=== PATIENT | male | born 1940 | race Caucasian/White ===

== ENCOUNTER → 2016-08-11 | Outpatient (CLI) | payer OTHER ==
[~2016-08-11] MED LIST: ASCO10003 PO; ASPEC325 PO; ATEN100T8 PO; CHOL20009 PO; FLUV50TA3 PO; GARL400T4 PO; IPRA0.037; LECI1CAP3 PO; LISI40TA PO; LSX20 PO; MCR25 PO; MULT-506 PO; OMEG10007 PO; PHYT500C PO; PRLSRUNK PO; SILD50TA PO; SULF800T23 PO; [UNRECOGNIZED DRUG - CODE] PO
[2016-08-11 11:11] LABS: BASO % 0.3 %; BASO ABS # 0.02 K/uL (0-0.2); COMPLETE YES; EOS % 2.9 %; HEMATOCRIT 38.9 % (42-52); IG% 0.1 %; LYMPH % 42.7 %; LYMPH ABS # 3.28 K/uL (1.2-3.4); MEAN CELL VOLUME 88.4 fL (80-100); MEAN CORPUSCULAR HEMOGLOBIN 31.4 pg (25-34); MEAN CORPUSCULAR HGB CONC 35.5 g/dl (32-36); MEAN PLATELET VOLUME 10.7 fL (7.4-10.4); MONO % 8.6 %; NEUT % 45.4 %; PLATELET COUNT 133 K/uL (130-400); WHITE BLOOD COUNT 7.69 K/uL (4.8-10.8)
[2016-08-11 11:35] LABS: ALT/SGPT 36 U/L (12-78); AST/SGOT 21 U/L (15-37); BLOOD UREA NITROGEN 39 mg/dl (7-18); CALCIUM 9.1 mg/dl (8.5-10.1); CARBON DIOXIDE 28 mmol/L (21-32); CHLORIDE 106 mmol/L (98-107); GLUCOSE 136 mg/dl (70-99); POTASSIUM 4.9 mmol/L (3.5-5.1); SODIUM 143 mmol/L (136-145); URIC ACID 3.7 mg/dl (2.6-7.2)
[2016-08-11 11:47] LABS: ALB/GLOB RATIO 0.9 (0.9-2); ALKALINE PHOSPHATASE 66 U/L (45-117); CHOLESTEROL 165 mg/dl (0-200); CHOLESTEROL/HDL RATIO 3.8; HDL CHOLESTEROL 43 mg/dl; LDL CHOLESTEROL CALCULATED 89 mg/dl; TRIGLYCERIDES 165 mg/dl (0-150); VERY LOW DENSITY LIPOPROT CALC 33 mg/dl
[2016-08-11 13:11] LABS: ESTIMATED AVERAGE GLUCOSE 174 mg/dl; HA1C FLAG Normal (Normal)
[2016-08-11 14:45] LABS: URINE APPEARANCE CLEAR (CLEAR); URINE BILIRUBIN NEG (NEG); URINE COLOR YELLOW; URINE NITRITE NEG (NEG); URINE SPECIFIC GRAVITY 1.013 (1.000-1.030); UROBILINOGEN NEG (NEG)
[2016-08-11 14:54] LABS: MANUAL MICROSCOPIC REQUIRED? NO; REVIEW REQ? NO
[2016-08-11 15:19] LABS: URINE PROTIEN/CREAT RATIO 0.1 (0-0.2); URINE TOTAL PROTEIN 13.2 mg/dl (0-11.9)
== END | disposition home or self-care (01) ==
LOC: C.LAB1850 09:49
PROVIDERS: ATTEND Internal Medicine Pulmonary Disease
DX: I48.91 Unspecified atrial fibrillation (principal); E11.22 Type 2 diabetes mellitus with diabetic chronic kidney disease; E78.5 Hyperlipidemia, unspecified; M1A.9XX0 Chronic gout, unspecified, without tophus (tophi); I12.9 Hypertensive chronic kidney disease with stage 1 through stage 4 chronic kidney disease, or unspecified chronic kidney disease; N18.3 Chronic kidney disease, stage 3 (moderate); N25.81 Secondary hyperparathyroidism of renal origin; E55.9 Vitamin D deficiency, unspecified; R60.9 Edema, unspecified

== ENCOUNTER → 2016-08-29 | Outpatient (CLI) | payer OTHER ==
--- NOTE | 2016-08-29 15:11 | DIAGNOSTIC IMAGING REPORT ---
RIGHT HAND 3 VIEWS CLINICAL HISTORY: Gout. Right hand pain. FINDINGS: 3 views of the right hand are obtained. No prior studies are available for comparison at the time of dictation. Skeletal structures are osteopenic. No fracture is seen. Mild osteoarthritic change is present at the first carpometacarpal and metacarpophalangeal joints. Only minimal arthritic changes seen involving the interphalangeal joints. Degenerative narrowing is also identified at the radiocarpal joint. A small ossific density distal to the styloid may represent a chronic avulsion injury. Soft tissue edema is present in the fingers, greatest in the second and third finger. No erosive change is seen. Subtle soft tissue calcifications are suggested around the second proximal interphalangeal joint. IMPRESSION: 1. No acute bony abnormality is seen in the right hand. 2. Osteopenia and mild osteoarthritic change as above. 3. No erosive change is seen. 4. Soft tissue edema is seen throughout the fingers, greatest in the second and third digits. Subtle soft tissue calcifications are suggested in the second finger around the proximal interphalangeal joint. This is nonspecific but may correspond to gouty arthropathy as clinically suspected. Electronically signed by: Tio Cole M.D. 08/29/2016 3:10 PM Dictated Date/Time: 08/29/2016 3:06 PM
== END | disposition home or self-care (01) ==
LOC: C.RAD1850 14:52
PROVIDERS: ATTEND Internal Medicine Rheumatology
DX: M10.9 Gout, unspecified (principal); R73.09 Other abnormal glucose; Z79.52 Long term (current) use of systemic steroids

== ENCOUNTER → 2017-02-17 | Outpatient (CLI) | payer OTHER ==
[2017-02-17 09:38] LABS: BASO % 0.2 %; BASO ABS # 0.02 K/uL (0-0.2); COMPLETE YES; EOS % 2.8 %; HEMATOCRIT 39.6 % (42-52); IG% 0.4 %; LYMPH ABS # 3.89 K/uL (1.2-3.4); MEAN CORPUSCULAR HEMOGLOBIN 31.5 pg (25-34); MEAN CORPUSCULAR HGB CONC 34.6 g/dl (32-36); NEUT % 47.6 %; PLATELET COUNT 144 K/uL (130-400); RED BLOOD COUNT 4.35 M/uL (4.7-6.1); WHITE BLOOD COUNT 9.27 K/uL (4.8-10.8)
[2017-02-17 10:07] LABS: ESTIMATED AVERAGE GLUCOSE 174 mg/dl; HA1C FLAG Normal (Normal)
[2017-02-17 10:22] LABS: ALB/GLOB RATIO 0.8 (0.9-2); ALT/SGPT 34 U/L (12-78); AST/SGOT 18 U/L (15-37); BLOOD UREA NITROGEN 44 mg/dl (7-18); BUN/CREATININE RATIO 24.3 (10-20); CALCIUM 9.3 mg/dl (8.5-10.1); CARBON DIOXIDE 29 mmol/L (21-32); CHLORIDE 104 mmol/L (98-107); CHOLESTEROL 169 mg/dl (0-200); GLUCOSE 113 mg/dl (70-99); POTASSIUM 4.7 mmol/L (3.5-5.1); SODIUM 140 mmol/L (136-145); TRIGLYCERIDES 154 mg/dl (0-150); URIC ACID 3.7 mg/dl (2.6-7.2); VERY LOW DENSITY LIPOPROT CALC 31 mg/dl
[2017-02-17 10:23] LABS: ALKALINE PHOSPHATASE 63 U/L (45-117); CHOLESTEROL/HDL RATIO 3.8; HDL CHOLESTEROL 44 mg/dl; LDL CHOLESTEROL CALCULATED 94 mg/dl
[2017-02-17 12:28] LABS: URINE APPEARANCE CLEAR (CLEAR); URINE BILIRUBIN NEG (NEG); URINE COLOR YELLOW; URINE EPITHELIAL CELL AUTO 0-5 /lpf (0-5); URINE NITRITE NEG (NEG); URINE PH 6.5 (4.5-7.5); URINE SPECIFIC GRAVITY 1.014 (1.000-1.030); UROBILINOGEN NEG (NEG)
[2017-02-17 12:36] LABS: MANUAL MICROSCOPIC REQUIRED? NO; REVIEW REQ? NO
[2017-02-17 12:50] LABS: URINE PROTIEN/CREAT RATIO 0.1 (0-0.2)
--- NOTE | 2017-02-25 11:37 | CODING QUERY MEDICAL NECESSITY ---
CQSUPPORTING DIAGNOSIS NEEDED A supporting diagnosis is required for the test/procedure performed on this patient in order for us to be reimbursed by the patient's insurance. Please provide a supporting diagnosis for the following test/procedure listed below next to the test name along with your signature. *If there is no additional diagnosis for this patient that would support the following test/procedure please document that below next to the test/procedure. Test(s)/Procedure(s) that require a supporting diagnosis: DOS 02/17/17 GLYCATED HEMOGLOBIN TEST Provider Signature: Date: Thank you Barbara Strange Health Information Management Once completed, please kindly fax back to [phone] For questions please call [phone]
== END | disposition home or self-care (01) ==
LOC: C.LAB1850 08:01
PROVIDERS: ATTEND Internal Medicine Pulmonary Disease
DX: I12.9 Hypertensive chronic kidney disease with stage 1 through stage 4 chronic kidney disease, or unspecified chronic kidney disease (principal); N18.3 Chronic kidney disease, stage 3 (moderate); N25.81 Secondary hyperparathyroidism of renal origin; R60.9 Edema, unspecified; E55.9 Vitamin D deficiency, unspecified; M1A.9XX0 Chronic gout, unspecified, without tophus (tophi); E11.9 Type 2 diabetes mellitus without complications

== ENCOUNTER → 2017-04-30 | Outpatient (CLI) | payer OTHER ==
--- NOTE | 2017-04-30 13:47 | DIAGNOSTIC IMAGING REPORT ---
PELVIS BILATERAL HIP 2 CLINICAL HISTORY: BILATERAL HIP PAIN COMPARISON: None. DISCUSSION: Evidence for bilateral total hip arthroplasties. Longstem femoral prosthetic on the right. Good contact between metallic components and underlying bone. No evidence for acetabular protrusion. Several circumferential wires surrounding the proximal left femur. There is no evidence for soft tissue swelling. IMPRESSION: No acute process status post total bilateral hip arthroplasties. The above report was generated using voice recognition software. It may contain grammatical, syntax or spelling errors. Electronically signed by: Milton Reid M.D. 04/30/2017 1:45 PM Dictated Date/Time: 04/30/2017 1:44 PM
== END | disposition home or self-care (01) ==
LOC: C.RDSM 13:00
PROVIDERS: ATTEND Physician Assistant
DX: M25.551 Pain in right hip (principal); M25.552 Pain in left hip

== ENCOUNTER → 2017-09-01 | Outpatient (CLI) | payer OTHER ==
[2017-09-01 09:35] LABS: HEMATOCRIT 38.4 % (42-52); HEMOGLOBIN 13.6 g/dL (14.0-18.0); MEAN CELL VOLUME 89.1 fL (80-100); MEAN CORPUSCULAR HEMOGLOBIN 31.6 pg (25-34); MEAN CORPUSCULAR HGB CONC 35.4 g/dl (32-36); MEAN PLATELET VOLUME 10.6 fL (7.4-10.4); PLATELET COUNT 157 K/uL (130-400); RED CELL DISTRIBUTION WIDTH CV 13.2 % (11.5-14.5); RED CELL DISTRIBUTION WIDTH SD 42.8 fL (36.4-46.3); WHITE BLOOD COUNT 8.59 K/uL (4.8-10.8)
[2017-09-01 09:52] LABS: HEMOGLOBIN A1C 8.1 % (4.5-5.6)
[2017-09-01 10:50] LABS: ALBUMIN 3.4 gm/dl (3.4-5.0); ALT/SGPT 39 U/L (12-78); AST/SGOT 19 U/L (15-37); BLOOD UREA NITROGEN 39 mg/dl (7-18); CALCIUM 9.2 mg/dl (8.5-10.1); CARBON DIOXIDE 24 mmol/L (21-32); GLUCOSE 165 mg/dl (70-99); POTASSIUM 4.2 mmol/L (3.5-5.1); SODIUM 139 mmol/L (136-145)
[2017-09-01 10:53] LABS: ALKALINE PHOSPHATASE 69 U/L (45-117); CHOLESTEROL 163 mg/dl (0-200); LDL CHOLESTEROL CALCULATED 76 mg/dl; PHOSPHORUS 3.1 mg/dl (2.5-4.9)
== END | disposition home or self-care (01) ==
LOC: C.LAB1850 07:54
PROVIDERS: ATTEND Internal Medicine Nephrology
DX: M1A.9XX0 Chronic gout, unspecified, without tophus (tophi) (principal); I12.9 Hypertensive chronic kidney disease with stage 1 through stage 4 chronic kidney disease, or unspecified chronic kidney disease; N18.3 Chronic kidney disease, stage 3 (moderate); N25.81 Secondary hyperparathyroidism of renal origin; E55.9 Vitamin D deficiency, unspecified

== ENCOUNTER → 2017-11-09 | Outpatient (CLI) | payer OTHER ==
--- NOTE | 2017-11-09 12:10 | DIAGNOSTIC IMAGING REPORT ---
RIGHT SHOULDER 3 VIEWS CLINICAL HISTORY: Right shoulder pain. FINDINGS: 3 views of the right shoulder are obtained. No prior studies are available for comparison at the time of dictation. The skeletal structures are osteopenic. No fracture or dislocation is seen. Productive degenerative change is noted at the acromioclavicular joint. The glenohumeral articulation is preserved. A small calcified joint body is suggested just above the glenoid. The overlying soft tissues are within normal limits. Imaged right lung parenchyma appears clear. IMPRESSION: 1. Osteopenia and mild degenerative change as above. No acute bony abnormality is identified. 2. Suspect a small calcified joint body. Electronically signed by: Tio Cole M.D. 11/09/2017 12:09 PM Dictated Date/Time: 11/09/2017 12:08 PM
--- NOTE | 2017-11-09 12:40 | DIAGNOSTIC IMAGING REPORT ---
CERVICAL SPINE 5 VIEWS CLINICAL HISTORY: Cervicalgia. Right shoulder pain. FINDINGS: AP, lateral, bilateral oblique, and odontoid views of the cervical spine are obtained. No prior studies are available for comparison at the time of dictation. The skeletal structures are osteopenic. There is no radiographic evidence of fracture or subluxation involving the cervical spine. The atlantodental articulation appears maintained. The odontoid process and lateral masses are intact as seen on the open-mouth view. The spinolaminar line is preserved. Vertebral body height and alignment are maintained. Small anterior osteophytes are seen throughout. There is multilevel facet arthropathy. Left-sided neural foraminal stenosis is suggested on the oblique views from C3-C4 through C5-C6. Mild right-sided neural foraminal stenosis is suggested from C3-C4 through C5-C6. There is moderate disc space narrowing seen at C5-C6 and C6-C7. A tiny posterior disc osteophyte complex at C6-C7 may contribute to mild acquired compromise of the central canal. The prevertebral soft tissues are normal in appearance. The visualized upper lobe lung parenchyma appears clear. Atherosclerotic calcification is noted in the carotid bulbs. IMPRESSION: 1. No acute bony abnormality is seen involving the cervical spine. 2. Osteopenia and multilevel spondylosis as detailed above. Dictated: 11/09/2017 12:09 PM Transcribed: 11/09/2017 12:40 PM MAN_[email or web address] Electronically signed by: Tio Cole M.D. 11/09/2017 12:52 PM Dictated Date/Time: 11/09/2017 12:09 PM
== END | disposition home or self-care (01) ==
LOC: C.RDSM 11:45
PROVIDERS: ATTEND Physician Assistant
DX: M54.12 Radiculopathy, cervical region (principal); M25.511 Pain in right shoulder; M85.89 Other specified disorders of bone density and structure, multiple sites

== ENCOUNTER 2019-03-03 08:17 | Inpatient (IN) ==
[2019-03-03] MEDS ORDERED: SODIUM CHLORIDE 0.9% 500 ML IV SCH (08:45)
--- NOTE | 2019-03-03 09:07 | XRay Report ---
XR chest 1V portable CLINICAL HISTORY: weakness dyspnea COMPARISON STUDY: 10/14/2018 FINDINGS: Mild increase in cardiac size. Prominent pulmonary vasculature. Diaphragms are smooth. The pulmonary apices are clear. IMPRESSION: Findings of developing congestive failure versus pulmonary edema. The above report was generated using voice recognition software. It may contain grammatical, syntax or spelling errors. Electronically signed by: Milton Reid M.D. 03/03/2019 9:05 AM
[2019-03-03 09:15] LABS: Basophils # (auto) 0.02 K/uL (0-0.2); Basophils % (auto) 0.2 %; Eosinophils # (auto) 0.01 K/uL (0-0.5); Eosinophils % (auto) 0.1 %; Hematocrit (blood only) 31.1 % (42-52); Hemoglobin 10.5 g/dL (14.0-18.0); Immature Granulocytes # (auto) 0.02 K/uL (0.00-0.02); Immature Granulocytes % (auto) 0.2 %; Lymphocytes # (auto) 2.59 K/uL (1.2-3.4); Lymphocytes % (auto) 26.4 %; Mean Corpuscular Hemoglobin 31.3 pg (25-34); Mean Corpuscular Hgb Conc 33.8 g/dL (32-36); Mean Corpuscular Volume 92.8 fL (80-100); Mean Platelet Volume 11.3 fL (7.4-10.4); Monocytes # (auto) 0.81 K/uL (0.11-0.59); Monocytes % (auto) 8.3 %; Neutrophils # (auto) 6.35 K/uL (1.4-6.5); Neutrophils % (auto) 64.8 %; Platelet Count 114 K/uL (130-400); RDW Coefficient of Variation 13.3 % (11.5-14.5); RDW Standard Deviation 44.9 fL (36.4-46.3); Red Blood Count 3.35 M/uL (4.7-6.1)
[2019-03-03 09:33] LABS: Albumin Level 3.3 gm/dl (3.4-5.0); BUN Creatinine Ratio 23.9 (10-20); Calcium 8.9 mg/dl (8.5-10.1); Creatinine Clr Calc Pharmacy 29.5 ml/min; Est GFR (African American) 25.9; Est GFR (Non-African American) 22.4; INR 1.4 (0.9-1.1); Magnesium 2.1 mg/dl (1.8-2.4); Partial Thromboplastin Ratio 1.3; Partial Thromboplastin Time 34.8 Seconds (21.0-31.0); Potassium 4.5 mmol/L (3.5-5.1); Prothrombin Time 13.9 Seconds (9.0-12.0)
--- NOTE | 2019-03-03 09:37 | CT Scan Report ---
CT head/brain wo con CT DOSE: 788.63 mGycm HISTORY: Mental status change weakness, falling TECHNIQUE: Multiaxial CT images of the head were performed without the use of intravenous contrast. A dose lowering technique was utilized adhering to the principles of ALARA. Comparison: 10/08/2018 Findings: Opacified left sphenoid chronic partial opacification right mastoid air cells. Sinus. The c alvarium and skull base are intact. The ventricles and sulci are within normal limits. There is no ma ss, hematoma, midline shift, or acute infarct. Age-related atrophy and chronic small vessel change is noted. Impression: 1. No acute intracranial abnormality. 2. Age-related atrophy and chronic small vessel change. 3. Chronic opacification left sphenoid sinus with chronic mucosal thickening of the components of the right mastoid air cells. The above report was generated using voice recognition software. It may contain grammatical, syntax or spelling errors. Electronically signed by: Milton Reid M.D. 03/03/2019 9:35 AM
[2019-03-03 09:59] LABS: Albumin Globulin Ratio 0.9 (0.9-2); Bilirubin,Total 2.1 mg/dl (0.2-1); Globulin 3.7 gm/dl (2.5-4.0); Thyroid Stimulating Hormone 1.15 uIu/ml (0.300-4.500); Troponin I 0.104 ng/ml (0-0.045)
--- NOTE | 2019-03-03 11:50 | History & Physical Report ---
Date of Service March 03, 2019 Assessment & Plan (1) CHF (congestive heart failure): New onset, possibly related to nifedipine use ECHO pending Nifedipine held Lasix 20mg AM at baseline for HTN dx, did not take today Lasix 40mg IV x1 and monitor BNP elevated (2) Elevated troponin: Demand ischemia vs related to CKD vs ACS Trop 0.104 on admission, serials pending Tele monitor (3) Weakness: Likely related to above in the setting of chronic weakness Had been improving with outpt PT and plans to return t/c PT/OT if continues (4) Hypertension: Recent d/c of lisinopril due to elevated K Nifedipine noted to cause LE swelling and possibly CHF exacerbation, last dose was 03/01 Had been changed to norvasc but not started yet, this could also cause LE swelling--will hold for now and monitor on home metoprolol dosing (5) Stage 3 chronic kidney disease: Baseline cr is 2.3-2.4, was 2.6 on admission Monitor with increased lasix (6) Atrial fibrillation: continue home meds Eliquis (7) Chronic sinusitis: Noted on CT and pt with sx Will start on augmentin x3 weeks Start probiotics (8) Type 2 diabetes mellitus: continue home meds BS 93 on admission A1c pending (9) Dyslipidemia: continue home meds (10) Edema: Likely related to nifedipine Could also be an issue with norvasc (11) Gout: continue home meds (12) Anxiety: continue home meds (13) DVT prophylaxis: Eliquis at baseline History of Present Illness Primary Care Provider: Jovany Stephenson MD 78 y/o M c/o weakness. Pt states that he has been going to PT at [facility] for issues with b/l hip weakness and had been doing quite well. He had progressed from a walker to using a cane only. He left PT on Thursday and felt that he had a good session, however that night he became notable weak and was having difficulty walking and standing. Thursday morning he tried to get out of bed and more slid to the floor. He was SOB when he woke up and had some mild SOB with ambulation. This AM he had slid out of bed and walked to the bathroom with some difficulty. He was brushing his teeth when he felt that he could no longer stand. He tried to hold himself up using the sink, but was too weak to do this as well. He was able to move to put his back against the wall and slide to the floor. He did not hit his head. Pt states that he had been on lisinopril for his BP, however there was an elevation in his K on routine labs a few weeks ago so this was changed to nifedipine. Since that time, pt has noted increased LE swelling, which was not an issue prior. He called Dr. Carney and this was changed to norvasc yesterday. He has not picked up this prescription yet. Last nifedipine was Thursday. Pt denies hx of LE swelling prior to this. He does take lasix, but has been on this for about 10 yrs. It was prescribed for BP control. Pt denies fever, chest pain, abd pain, n/v/c/d, LE pain. Pt states he has a chronic "stuffy nose" that he uses Atrovent spray for. He also uses a sinus rinse. This helps, but if he misses doses of the nasal spray, his sx return. Allergies Allergy/AdvReac Type Severity Reaction Status Date / Time latex Allergy Unknown LOCAL SKIN Verified 03/03/19 08:42 IRRITATION lisinopril Allergy Unknown hyperkalemi Verified 03/03/19 08:42 a sulfamethoxazole AdvReac increases Verified 03/03/19 08:42 [From Bactrim] potassium trimethoprim [From Bactrim] AdvReac increases Verified 03/03/19 08:42 potassium Home Medications Home Medications Medication Instructions Recorded Confirmed Type Eliquis 5 mg PO BID 10/08/18 03/03/19 History acetaminophen [Tylenol Arthritis 1,300 mg PO QAM 10/08/18 03/03/19 History Pain] ascorbic acid (vitamin C) 1,000 mg PO QAM 10/08/18 03/03/19 History gabapentin 100 mg PO HS 10/08/18 03/03/19 History garlic 1,000 mg PO QAM 10/08/18 03/03/19 History glipizide 5 mg PO QAM 10/08/18 03/03/19 History ipratropium bromide 2 spray INTRANASAL BID 10/08/18 03/03/19 History metoprolol tartrate 25 mg PO BID 10/08/18 03/03/19 History multivitamin 1 tab PO QAM 10/08/18 03/03/19 History pravastatin 10 mg PO QAM 10/08/18 03/03/19 History ranitidine HCl 300 mg PO QAM 10/08/18 03/03/19 History febuxostat [Uloric] 40 mg PO QAM 12/14/18 03/03/19 History cholecalciferol (vitamin D3) 1,000 1,000 units PO QAM 01/17/19 03/03/19 History unit capsule [id number] oil 120 2 cap PO QAM cap 01/17/19 03/03/19 History mg-180 mg-60 mg-1,200 mg capsule, DR hernandez stanol amarjit 450 mg tablet 900 mg PO QAM tab 01/17/19 03/03/19 History acetaminophen [Tylenol Arthritis 650 mg PO HS 03/03/19 03/03/19 History Pain] amlodipine 2.5 mg PO QAM 03/03/19 03/03/19 History fluvoxamine 100 mg PO HS 03/03/19 03/03/19 History furosemide 20 mg PO QAM 03/03/19 03/03/19 History Past Med/Surg History Medical History Gout (Chronic) Hypertension (Chronic) Stage 3 chronic kidney disease (Chronic) Afib Arthritis Cataracts, both eyes RIGHT EYE BEING DONE FIRST Diabetes GERD (gastroesophageal reflux disease) High cholesterol History of stress test 2009 [place] D/T PASSED OUT WENT TO [facility]. 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 Hx of fall 09/2018 - SEEN IN ED - HAD CT OF HEAD - NEGATIVE Peripheral artery disease LEFT LEG Surgical History History of parathyroidectomy (Chronic) PARTIAL History of back surgery L3-L4 History of left hip replacement History of right hip replacement X2 Hx of hernia repair Family History Father Myocardial infarction Mother Gout CHF (congestive heart failure) Social History Preferred Language: [place] Communication Ability: Effective Beliefs That Will Affect Care: None Current Living Situation: Spouse Feels Safe at Home: Yes Smoking Status: Former smoker Smoking End Date: 1984 ; Second Hand Exposure: No ; Hx Alcohol Use: No Hx Substance Use: No Review of Systems Review of Systems: Pertinent positives and negatives reviewed in HPI--all others negative Physical Exam Constitutional: WD/WN, vitals as above Eyes: normal visual mckeon by confrontation and + anicteric sclerae ENMT: Nose: + abnormal transillumination of sinuses and + facial tenderness Neck: normal visual inspection and trachea midline Respiratory: normal respiratory effort; no respiratory distress Auscultation: + crackles Cardiovascular: Rate/Rhythm: regular rate; + abnormal rhythm Gastrointestinal (Abdomen): Inspection/Auscultation: abdomen not distended Percussion/Palpation: abdomen soft; abdomen nontender Musculoskeletal: Head/Neck/Chest: normocephalic and head atraumatic b/l 1+ LE edema, peripheral pulses intact Skin: no rashes, warm and dry Neurologic: awake; not confused Speech / Cognition: normal speech Psychiatric: A+Ox3, euthymic affect Results & Data Vital Signs (Past 12 Hours) Vital Signs Temp Pulse Pulse Resp BP BP Pulse Ox 03/03/19 09:44 65 20 154/58 H 96 03/03/19 08:52 62 96 03/03/19 08:24 37.6 C H 63 18 190/86 H 97 Diagnostic Findings CXR: CHF CT head: neg for acute but with L sided chronic sinusitis ECG Rhythm: atrial fibrillation Findings: + RBBB Code Status & VTE Plan Code Status Full code VTE Prophylaxis Plan VTE Prophylaxis will be ordered: Yes PG Care Time/CCT Total # of Minutes Spent Total Time Spent with Patient: Total time spent is greater than 50% in coordination of care (as documented) at patient's floor/unit and/or counseling patient: (1) CHF (congestive heart failure) Heart failure chronicity: unspecified Heart failure type: unspecified Qualified Code(s): I50.9 - Heart failure, unspecified
[2019-03-03] MEDS ORDERED: METOPROLOL TARTRATE 25 MG TAB PO STA (12:08)
[2019-03-03] MEDS ORDERED: FUROSEMIDE 20 MG in SYRINGE 0 ML IV ONE (12:08)
[2019-03-03] MEDS ORDERED: FUROSEMIDE 40 MG/4 ML VIAL IV ONE (12:20)
--- NOTE | 2019-03-03 13:08 | Emergency Department Note ---
Entered by Akil Saab acting as a scribe for History of Present Illness General Chief complaint: Fall Time Seen by Provider: 03/03/19 08:35 Source: patient History of Present Illness Provider complaint: Fall Onset (ago): day(s) 1 Location: lower extremity, left and right Severity: similar to prior episodes Pain Consistency: + constant Maximum Pain Intensity: 0 Relieved By: + none Exacerbated By: + none Associated symptoms: no chest pain, no headaches and no shortness of breath The patient is a 78 year old male who presents to the Emergency Room with complaints of intermittent lower extremity weakness that has been an ongoing problem for months but became acutely worse yesterday. The patient states that due to this weakness he has had frequent falls. The patient reports that this morning he was in the bathroom when he started to feel himself sway to the left. He notes he could not stop so he leaned again the wall and slid to the ground. The patient adds that it was a gentle fall and he did not injure himself or strike his head. The patient states that he has followed up with Dr. Curiel - Cardiology for these weakness and balance problems and he was diagnosed with peripheral artery disease. The patient sometimes uses a walker and is currently attending physical therapy to build strength back. He recalls that 2 days ago he had a productive day at physical therapy, however yesterday he felt weaker than her normally does. The patient is on Eliquis for his history of Afib and is supposed to have an appointment with Dr. Curiel today. The patient also has a history of bilateral hip replacements. Home Medications Home Medications Medication Instructions Recorded Confirmed Type Eliquis 5 mg PO BID 10/08/18 03/03/19 History acetaminophen [Tylenol Arthritis 1,300 mg PO QAM 10/08/18 03/03/19 History Pain] ascorbic acid (vitamin C) 1,000 mg PO QAM 10/08/18 03/03/19 History gabapentin 100 mg PO HS 10/08/18 03/03/19 History garlic 1,000 mg PO QAM 10/08/18 03/03/19 History glipizide 5 mg PO QAM 10/08/18 03/03/19 History ipratropium bromide 2 spray INTRANASAL BID 10/08/18 03/03/19 History metoprolol tartrate 25 mg PO BID 10/08/18 03/03/19 History multivitamin 1 tab PO QAM 10/08/18 03/03/19 History pravastatin 10 mg PO QAM 10/08/18 03/03/19 History ranitidine HCl 300 mg PO QAM 10/08/18 03/03/19 History febuxostat [Uloric] 40 mg PO QAM 12/14/18 03/03/19 History cholecalciferol (vitamin D3) 1,000 1,000 units PO QAM 01/17/19 03/03/19 History unit capsule [id number] oil 120 2 cap PO QAM cap 01/17/19 03/03/19 History mg-180 mg-60 mg-1,200 mg capsule, plant stanol amarjit 450 mg tablet 900 mg PO QAM tab 01/17/19 03/03/19 History acetaminophen [Tylenol Arthritis 650 mg PO HS 03/03/19 03/03/19 History Pain] amlodipine 2.5 mg PO QAM 03/03/19 03/03/19 History fluvoxamine 100 mg PO HS 03/03/19 03/03/19 History furosemide 20 mg PO QAM 03/03/19 03/03/19 History Allergies Allergy/AdvReac Type Severity Reaction Status Date / Time latex Allergy Unknown LOCAL SKIN Verified 03/03/19 08:42 IRRITATION lisinopril Allergy Unknown hyperkalemi Verified 03/03/19 08:42 a sulfamethoxazole AdvReac increases Verified 03/03/19 08:42 [From Bactrim] potassium trimethoprim [From Bactrim] AdvReac increases Verified 03/03/19 08:42 potassium Past Med/Surg History Medical History Gout (Chronic) Hypertension (Chronic) Stage 3 chronic kidney disease (Chronic) Afib Arthritis Cataracts, both eyes RIGHT EYE BEING DONE FIRST Diabetes GERD (gastroesophageal reflux disease) High cholesterol History of stress test 2009 [place] D/T PASSED OUT WENT TO [facility]. 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 HAND HAS RECORD OF THIS Hx of fall 09/2018 - SEEN IN ED - HAD CT OF HEAD - NEGATIVE Peripheral artery disease LEFT LEG Surgical History History of parathyroidectomy (Chronic) PARTIAL History of back surgery L3-L4 History of left hip replacement History of right hip replacement X2 Hx of hernia repair Family History Father Myocardial infarction Mother Gout CHF (congestive heart failure) Social History Preferred Language: [place] Communication Ability: Effective Beliefs That Will Affect Care: None Current Living Situation: Spouse Feels Safe at Home: Yes Smoking Status: Former smoker Second Hand Exposure: No ; Hx Alcohol Use: No Hx Substance Use: No Review of Systems See HPI for pertinent positives & negatives. and A total of 10 systems reviewed and were otherwise negative Physical Exam Vital Signs Vital Signs - 24 hr 03/03/19 08:24 03/03/19 08:52 03/03/19 09:12 Temperature 37.6 C H Temperature Source Oral Sepsis Recent Fever Within 48 Hours No Sepsis Action Taken by Nursing No Action Required Pulse Rate - Lying 54 L Pulse Rate - Sitting 61 Pulse Rate - Standing 64 Pulse Rate 63 62 Pulse Rate [Left] Respiratory Rate 18 Respiratory Effort / Characteristics Non-Labored Spontaneous Respiratory Depth Normal Blood Pressure - Lying 172/71 H Blood Pressure - Sitting 174/75 H Blood Pressure- Standing 154/58 H Blood Pressure 190/86 H Blood Pressure [Left Arm] Blood Pressure Mean 120 Blood Pressure Mean [Left Arm] Blood Pressure Position Lying Blood Pressure Position [Left Arm] Pulse Oximetry 97 96 Oxygen Delivery Method Room Air Room Air 03/03/19 09:44 Temperature Temperature Source Sepsis Recent Fever Within 48 Hours Sepsis Action Taken by Nursing Pulse Rate - Lying Pulse Rate - Sitting Pulse Rate - Standing Pulse Rate Pulse Rate [Left] 65 Respiratory Rate 20 Respiratory Effort / Characteristics Non-Labored Spontaneous Respiratory Depth Blood Pressure - Lying Blood Pressure - Sitting Blood Pressure- Standing Blood Pressure Blood Pressure [Left Arm] 154/58 H Blood Pressure Mean Blood Pressure Mean [Left Arm] 90 Blood Pressure Position Blood Pressure Position [Left Arm] Lying Pulse Oximetry 96 Oxygen Delivery Method Room Air GENERAL: Patient is in no acute distress. HEENT: No acute trauma, normocephalic atraumatic, mucous membranes moist, no nasal congestion, no scleral icterus. NECK: No stridor, no adenopathy, no meningismus, trachea is midline. LUNGS: Clear to auscultation bilaterally, no wheeze, no rhonchi, breath sounds equal. HEART: 1/6 systolic murmur. Regular rate and rhythm. ABDOMEN: Soft, nontender, bowel sounds positive, no hernias, no peritonitis. RECTAL: Brown stool, heme negative. EXTREMITIES: No cyanosis or edema, full range of motion of all the joints without pain or difficulty, no signs for acute trauma. NEUROLOGIC: Oriented x 3, no acute motor or sensory deficits, no focal weakness. No cerebellar deficits or pronator drift. SKIN: No rash, no jaundice, no diaphoresis. Course 0834: Past medical records reviewed. The patient was evaluated in room B07, and a complete history and physical examination were performed. 0953: I reevaluated the patient and updated him on results. I also performed a rectal exam. 1004: I updated the patient on the treatment plan. He fully understands and is agreeable with the plan. 1016: I spoke to Luz Marialew Myles [facility] PAC under Dr. Garcia [facility] Hospitalist about the patient's case. They are going to accept the patient for further evaluation. Consultations Consultation #1: I spoke [facility]z [facility] under Dr. Garcia [facility] Hospitalist about the patient's case. They are going to accept the patient for further evaluation. Time: 10:16 Administered Medications Apixaban (Eliquis) 5 mg PO BID CHAPIN Stop: 04/02/19 13:18 Last Admin: 03/03/19 14:30 Dose: 5 mg Documented by: [id number] Lactobacillus Acidophilus (Floranex) 4 tab PO QIDM CHAPIN Stop: 04/02/19 13:18 Last Admin: 03/03/19 14:30 Dose: 4 tab Documented by: [id number] Discontinued Medications Furosemide (Lasix) Confirm Administered Dose 40 mg IV .STK-MED ONE Stop: 03/03/19 12:21 Last Admin: 03/03/19 12:23 Dose: 20 mg Documented by: [id number] Sodium Chloride (Nss) 500 mls @ 999 mls/hr IV .Q31M CHAPIN Stop: 03/03/19 09:15 Last Infusion: 03/03/19 09:50 Dose: 0 mls/hr Documented by: [id number] Admin: 03/03/19 09:17 Dose: 999 mls/hr Documented by: [id number] Furosemide 20 mg/ Syringe 2 mls @ 4 mls/min IV ONE ONE Stop: 03/03/19 12:09 Last Admin: 03/03/19 12:23 Dose: Not Given Documented by: [id number] Furosemide 40 mg/ Syringe 4 mls @ 4 mls/min IV 1400 ONE Stop: 03/03/19 14:01 Last Admin: 03/03/19 14:30 Dose: 4 mls/min Documented by: [id number] Metoprolol Tartrate (Lopressor) 25 mg PO NOW STA Stop: 03/03/19 12:09 Last Admin: 03/03/19 12:23 Dose: 25 mg Documented by: [id number] Medical Decision Making Differential Diagnosis Differential Diagnosis includes: Debilitation, dehydration, anemia, electrolyte abnormality, liver or renal failure, OR, UTI, and intracranial bleed, amongst others. Medical Records Attestation: I reviewed the patient's medical records. Home Medications Current Medication List: was personally reviewed by me Laboratory Data Attestation: I reviewed the patient's lab results. Result diagrams: 03/03/19 09:05 03/03/19 09:05 Lab Results 03/03/19 03/03/19 03/03/19 Range/Units 09:05 09:05 09:05 WBC 9.80 (4.8-10.8) K/uL RBC 3.35 L (4.7-6.1) M/uL Hgb 10.5 L (14.0-18.0) g/dL Hct 31.1 L (42-52) % MCV 92.8 (80-100) fL MCH 31.3 (25-34) pg MCHC 33.8 (32-36) g/dL RDW Std Deviation 44.9 (36.4-46.3) fL RDW Coeff of Ekta 13.3 (11.5-14.5) % Plt Count 114 L (130-400) K/uL MPV 11.3 H (7.4-10.4) fL Immature Gran % (Auto) 0.2 % Neut % (Auto) 64.8 % Lymph % (Auto) 26.4 % Andrew % (Auto) 8.3 % Eos % (Auto) 0.1 % Baso % (Auto) 0.2 % Immature Gran # (Auto) 0.02 (0.00-0.02) K/uL Neut # (Auto) 6.35 (1.4-6.5) K/uL Lymph # (Auto) 2.59 (1.2-3.4) K/uL Andrew # (Auto) 0.81 H (0.11-0.59) K/uL Eos # (Auto) 0.01 (0-0.5) K/uL Baso # (Auto) 0.02 (0-0.2) K/uL PT 13.9 H (9.0-12.0) Seconds INR 1.4 H (0.9-1.1) APTT 34.8 H (21.0-31.0) Seconds PTT Ratio 1.3 Sodium 140 (136-145) mmol/L Potassium 4.5 (3.5-5.1) mmol/L Chloride 109 H (98-107) mmol/L Carbon Dioxide 24 (21-32) mmol/L Anion Gap 7.0 (3-11) BUN 63 H (7-18) mg/dl Creatinine 2.64 H (0.6-1.4) mg/dl Est Cr Clr Drug Dosing 29.5 ml/min Est GFR ( Amer) 25.9 Est GFR (Non-Af Amer) 22.4 BUN/Creatinine Ratio 23.9 H (10-20) Glucose 93 (70-99) mg/dl Calcium 8.9 (8.5-10.1) mg/dl Magnesium 2.1 (1.8-2.4) mg/dl Total Bilirubin 2.1 H (0.2-1) mg/dl AST 35 (15-37) U/L ALT 29 (12-78) U/L Alkaline Phosphatase 84 (45-117) U/L Total Creatine Kinase 436 H (39-308) U/L Troponin I 0.104 H* (0-0.045) ng/ml NT-Pro-B Natriuret Pep 49126 H (0-1800) pg/ml Total Protein 7.0 (6.4-8.2) gm/dl Albumin 3.3 L (3.4-5.0) gm/dl Globulin 3.7 (2.5-4.0) gm/dl Albumin/Globulin Ratio 0.9 (0.9-2) TSH 1.150 (0.300-4.500) uIu/ml Imaging Data Radiologist's Impression: Radiology results as stated below per my review and the radiologist's interpretation: XR chest 1V portable CLINICAL HISTORY: weakness dyspnea COMPARISON STUDY: 10/14/2018 FINDINGS: Mild increase in cardiac size. Prominent pulmonary vasculature. Diaphragms are smooth. The pulmonary apices are clear. IMPRESSION: Findings of developing congestive failure versus pulmonary edema. The above report was generated using voice recognition software. It may contain grammatical, syntax or spelling errors. Electronically signed by: Milton Reid M.D. 03/03/2019 9:[address] head/brain wo con CT DOSE: 788.63 mGycm HISTORY: Mental status change weakness, falling TECHNIQUE: Multiaxial CT images of the head were performed without the use of intravenous contrast. A dose lowering technique was utilized adhering to the principles of ALARA. Comparison: 10/08/2018 Findings: Opacified left sphenoid chronic partial opacification right mastoid air cells. Sinus. The calvarium and skull base are intact. The ventricles and sulci are within normal limits. There is no mass, hematoma, midline shift, or acute infarct. Age-related atrophy and chronic small vessel change is noted. Impression: 1. No acute intracranial abnormality. 2. Age-related atrophy and chronic small vessel change. 3. Chronic opacification left sphenoid sinus with chronic mucosal thickening of the components of the right mastoid air cells. The above report was generated using voice recognition software. It may contain grammatical, syntax or spelling errors. Electronically signed by: Milton Reid M.D. 03/03/2019 9:35 AM ECG Data Attestation: I personally reviewed and interpreted this ECG as follows: Indication: weakness Rate (beats per minute): 60 Rhythm: atrial fibrillation Findings: + other (QTC 454), + nonspecific-ST abn and + RBBB; no ST elevation Comparison ECG Date: from (08/25/2010) Change: the following changes noted (Afib is new. RBBB is old. ) Blood Pressure Blood Pressure Findings: Elevated blood pressure Blood Pressure Disposition: further management by hospitalist MITCH Hernandez There is no leukocytosis. The patient is somewhat anemic with a hemoglobin of 10.5. This is a two-point drop for him. A rectal exam was performed, the stool was brown and heme negative. Platelet count slightly low at 114. INR does show a slight elevation, likely from his Eliquis use. Renal panel testing shows a high creatinine at 2.64, this is baseline for the patient. Total CK was not significantly elevated making rhabdomyolysis unlikely. Patient appeared to be in a euthyroid state. No worrisome liver enzyme elevation. BNP was elevated consistent with fluid overload. Chest film does suggest a mild amount of heart failure. EKG shows A. fib, no acute ischemic change. Cardiac enzyme testing x1 is somewhat elevated, this elevation could be consistent with cardiac strain or injury. Brain CT shows no acute bleed or mass-effect. The patient was given IV Lasix 20 mg. He was given his regular dose of typical oral metoprolol. He received a 500 cc saline bolus. Patient presents with weakness and frequent falls. He felt more weak today and yesterday than he had in a while. Work-up does show anemia, some mild CHF and a cardiac troponin elevation. Further care in the hospital is warranted. I spoke to the patient, I talked with case management. The on-call hospitalist was consulted. Impression & Plan Elevated troponin, Anemia, CHF (congestive heart failure), Weakness Discharge Plan Visit Data *Final* Discharge Date/Time: 03/03/19 12:51 Chief Complaint: Fall ED Provider: Tio Jeff Discharge Problem: Elevated troponin, Anemia, CHF (congestive heart failure), Weakness Patient Disposition: Admitted As Inpatient Discharge Instructions Interventions: ED Discharge Assessment Last Done: 03/03/19 12:51 Discharge Problem: Anemia Qualifiers: Anemia type: unspecified type Qualified Code(s): D64.9 - Anemia, unspecified CHF (congestive heart failure) Qualifiers: Heart failure type: unspecified Heart failure chronicity: unspecified Qualified Code(s): I50.9 - Heart failure, unspecified The scribe's documentation has been prepared under my direction and personally reviewed by me in its entirety. I confirm that the note above accurately reflects all work, treatment, procedures, and medical decision making performed by me.
[2019-03-03] MEDS ORDERED: ACETAMINOPHEN 325 MG TAB PO PRN (13:19)
[2019-03-03] MEDS ORDERED: MAGNESIUM HYDROXIDE SUSP 30 ML UDC PO PRN (13:19)
[2019-03-03] MEDS ORDERED: ONDANSETRON INJ 2 MG/ML 2 ML VIAL IV PRN (13:19)
[2019-03-03] MEDS ORDERED: FUROSEMIDE 40 MG in SYRINGE 0 ML IV ONE (14:00)
[2019-03-03] MEDS: LACTOBACILLUS ACIDOPHILUS (FLORANEX) TAB PO SCH ×3 (14:30→20:33)
[2019-03-03] MEDS: APIXABAN 5 MG TABLET PO SCH ×2 (14:30→20:38)
[2019-03-03] MEDS: AMOXICILLIN/CLAVULANATE 500 MG TAB PO SCH (17:16)
[2019-03-03] MEDS: METOPROLOL TARTRATE 25 MG TAB PO SCH (20:32)
[2019-03-03] MEDS: ACETAMINOPHEN 325 MG TAB PO SCH (20:33)
[2019-03-03] MEDS: IPRATROPIUM BROMIDE NASAL SPRAY 0.06% 15ML NAE SCH (20:34)
[2019-03-03] MEDS: FLUVOXAMINE MALEATE 50 MG TAB PO SCH (20:37)
[2019-03-03] MEDS: GABAPENTIN 100 MG CAP PO SCH (21:10)
[2019-03-04 01:37] LABS: Appearance Urine Cloudy (Clear); Bacteria Urine Automated Negative (Negative); Bilirubin Urine Negative (Negative); Blood Urine 3+ (Negative); Color Urine Yellow; Glucose Urine UA Negative (Negative); Ketones Urine Negative (Negative); Leukocyte Esterase Urine Trace (Negative); Nitrite Urine Negative (Negative); Protein Urine 2+ (Negative); RBC Urine Automated >30 /hpf (0-4); Specific Gravity Urine 1.019 (1.000-1.030); Urobilinogen Urine Negative (Negative)
[2019-03-04] MEDS ORDERED: glipiZIDE 5 MG TAB PO SCH (07:30)
[2019-03-04] MEDS: APIXABAN 5 MG TABLET PO SCH ×2 (07:41→21:33)
[2019-03-04] MEDS: METOPROLOL TARTRATE 25 MG TAB PO SCH ×2 (07:41→21:34)
[2019-03-04] MEDS: ASCORBIC ACID 500 MG TAB PO SCH (07:41)
[2019-03-04] MEDS: MULTIVITAMIN TAB PO SCH (07:41)
[2019-03-04] MEDS: OMEGA-3 (PURIFIED FISH OIL) 1 GM CAP PO SCH (07:41)
[2019-03-04] MEDS: PRAVASTATIN SOD 10 MG TAB PO SCH (07:42)
[2019-03-04] MEDS: FEBUXOSTAT 40 MG TABLET PO SCH (07:42)
[2019-03-04] MEDS: LACTOBACILLUS ACIDOPHILUS (FLORANEX) TAB PO SCH ×4 (07:42→21:33)
[2019-03-04] MEDS: AMOXICILLIN/CLAVULANATE 500 MG TAB PO SCH ×2 (07:42→21:32)
[2019-03-04] MEDS: IPRATROPIUM BROMIDE NASAL SPRAY 0.06% 15ML NAE SCH ×2 (07:42→21:33)
[2019-03-04] MEDS: CHOLECALCIFEROL 1,000 UNITS TAB PO SCH (07:42)
[2019-03-04 07:47] LABS: BUN Creatinine Ratio 24.1 (10-20); Calcium 8.9 mg/dl (8.5-10.1); Creatinine Clr Calc Pharmacy 27.8 ml/min; Est GFR (Non-African American) 20.7
[2019-03-04 07:55] LABS: Troponin I 0.802 ng/ml (0-0.045)
[2019-03-04 07:59] LABS: Estimated Average Glucose 105 mg/dl; Hemoglobin A1C 5.3 % (4.5-5.6)
[2019-03-04] MEDS: FUROSEMIDE 20 MG TAB PO SCH (08:20)
[2019-03-04] MEDS ORDERED: ACETAMINOPHEN 325 MG TAB PO SCH (09:00)
[2019-03-04] MEDS ORDERED: [UNRECOGNIZED DRUG - REMARK] PO SCH (09:00)
[2019-03-04] MEDS ORDERED: NON-FORMULARY MEDICATION (Garlic 1,000 MG) PO SCH (09:00)
[2019-03-04] MEDS ORDERED: GLUCOSE 40% GEL 15 GM TUBE PO PRN (09:49)
[2019-03-04] MEDS ORDERED: GLUCAGON FOR INJ 1 MG VIAL SQ PRN (09:49)
[2019-03-04] MEDS ORDERED: GLUCOSE 10 TABS/TUBE PO PRN (09:49)
[2019-03-04] MEDS ORDERED: DEXTROSE 50% 50 ML SYRINGE IV PRN (09:49)
[2019-03-04] MEDS ORDERED: CARBOHYDRATES FOR HYPOGLYCEMIA PO PRN (09:49)
[2019-03-04] MEDS ORDERED: HydrALAZINE HCL 20 MG/ML VIAL IV PRN (09:52)
--- NOTE | 2019-03-04 12:56 | Nephrology Consultation ---
Date of Consultation March 04, 2019 Assessment & Plan (1) Acute renal insufficiency: Baseline creatinine approximately 2.3 mg/dL. CKD attributed to predominantly microvascular disease. Patient was found to have evidence of congestive heart failure on admission. His chest x-ray did demonstrate some early signs of pulmonary vascular congestion interstitial edema which is mild. He was provided 40 mg of IV Lasix. He has been maintained in a negative fluid balance over the past 24 hours. He denies significant improvement in his symptoms. Symptoms are atypical for congestive heart failure. Workup has also been notable for an elevated troponin which has increased since admission. TTE demonstrate mild diastolic dysfunction and no significant evidence of valvular heart disease. Cardiology consultation is pending. On presentation yesterday the patient was in atrial fibrillation with an elevated heart rate. As of this morning on my evaluation the patient was bradycardic. Follow-up EKG was requested at that time. Overall symptoms are also atypical for acute cardiac etiology such as an arrhythmia. His volume status certainly appears euvolemic to slightly hypervolemic. I agree with continued use of diuretics encouraged slightly negative fluid balance. The rising creatinine may be attributed to some ATN. To help completed evaluation his CPK has been requested. I think additional evaluation will be needed to discern some of the patient's lower extremity weakness. He does have some weakness on extension of the left lower extremity and is unclear to me whether this is a new or chronic finding. Thankfully he is nonoliguric is metabolic profile is otherwise appropriate. There is certainly no indication for dialysis at this time. Patient's medications are appropriately dosed for kidney function. He has progressed being provided p.r.n. hydralazine for accelerated hypertension. To complete evaluation of DAVEY I and accelerated hypertension a renal artery duplex has been requested. I/O's will be documented. A repeat metabolic profile has been requested for tomorrow AM. I will follow up at that time. (2) Stage 3 chronic kidney disease: (3) CHF (congestive heart failure): (4) Atrial fibrillation: (5) Elevated troponin: (6) Hypertension: (7) Weakness: History of Present Illness Reason for Consultation: Acute on chronic renal insufficiency, hypertension Requesting Physician: Karen Dumas MD Attending Physician: Karen Dumas MD History of Present Illness Mr. Marco A Haddad is a 78 year old male with acute on chronic renal insufficiency. Nephrology consultation was requested by Dr. Dumas. Patient was evaluated this morning with his at the bedside. Baseline creatinine is ~2.3 mg/dL. Serum creatinine was measured at 2.8 mg/dL this morning. Tyler is followed in the outpatient Nephrology Clinic by Dr. Carney regarding CKD and hypertension. He was recently evaluated in the outpatient clinic on February 25. At that time, Lisinopril had been stopped due to hyperkalemia. Nifedipine was started as an alternative. Unfortunately, Tyler developed lower extremity edema and muscle weakness which he felt could be related to the medication. He discussed these concerns with Dr. Carney earlier this week and was advised to trial switching nifedipine to amlodipine. However at this time he has not started amlodipine. Ago the patient started having recurrent falls. Tyler attributes this to weakness in his legs. He had started physical therapy and initially noted some improvement. Unfortunately symptoms progressed over the course the past couple weeks. Symptoms were notably severe over the past 48 reason. This was the reason for his presentation to the hospital. Notably on Thursday EMS were called to his home for required assistance of a rising from the floor. Patient denies any significant injury from his fall. On evening the patient had to call his son-in-law to the house to help in from his couch to bed. Weakness is predominant in the legs but patient had also noted some weakness in his upper extremities as well. He states that he has otherwise felt well. He denies any myalgias he denies any arthralgias. He does have some mild chronic lower back pain. There has been no change in the symptoms over time. Stage III (moderate impairment). Baseline creatinine 2.3 w/ EGFR 30 cc/min. Urine sediment remains benign. Urinary protein excretion is within normal limits. Previous renal ultrasound showed no structural kidney disease. Patient's renal impairment is likely on the basis of microvascular disease, hypertension and age. Allergies Allergy/AdvReac Type Severity Reaction Status Date / Time latex Allergy Unknown LOCAL SKIN Verified 03/03/19 08:42 IRRITATION lisinopril Allergy Unknown hyperkalemi Verified 03/03/19 08:42 a sulfamethoxazole AdvReac increases Verified 03/03/19 08:42 [From Bactrim] potassium trimethoprim [From Bactrim] AdvReac increases Verified 03/03/19 08:42 potassium Home Medications Home Medications Medication Instructions Recorded Confirmed Type Eliquis 5 mg PO BID 10/08/18 03/03/19 History acetaminophen [Tylenol Arthritis 1,300 mg PO QAM 10/08/18 03/03/19 History Pain] ascorbic acid (vitamin C) 1,000 mg PO QAM 10/08/18 03/03/19 History gabapentin 100 mg PO HS 10/08/18 03/03/19 History garlic 1,000 mg PO QAM 10/08/18 03/03/19 History glipizide 5 mg PO QAM 10/08/18 03/03/19 History ipratropium bromide 2 spray INTRANASAL BID 10/08/18 03/03/19 History metoprolol tartrate 25 mg PO BID 10/08/18 03/03/19 History multivitamin 1 tab PO QAM 10/08/18 03/03/19 History pravastatin 10 mg PO QAM 10/08/18 03/03/19 History ranitidine HCl 300 mg PO QAM 10/08/18 03/03/19 History febuxostat [Uloric] 40 mg PO QAM 12/14/18 03/03/19 History cholecalciferol (vitamin D3) 1,000 1,000 units PO QAM 01/17/19 03/03/19 History unit capsule [id number]-epa-fish oil 120 2 cap PO QAM cap 01/17/19 03/03/19 History mg-180 mg-60 mg-1,200 mg capsuleDR hernandez stanol amarjit 450 mg tablet 900 mg PO QAM tab 01/17/19 03/03/19 History acetaminophen [Tylenol Arthritis 650 mg PO HS 03/03/19 03/03/19 History Pain] amlodipine 2.5 mg PO QAM 03/03/19 03/03/19 History fluvoxamine 100 mg PO HS 03/03/19 03/03/19 History furosemide 20 mg PO QAM 03/03/19 03/03/19 History Patient History Medical History Gout (Chronic) Hypertension (Chronic) Stage 3 chronic kidney disease (Chronic) Afib Arthritis Cataracts, both eyes RIGHT EYE BEING DONE FIRST Diabetes GERD (gastroesophageal reflux disease) High cholesterol History of stress test 2009 [place] D/T PASSED OUT WENT TO [facility]. 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 OF THIS Hx of fall 09/2018 - SEEN IN ED - HAD CT OF HEAD - NEGATIVE Peripheral artery disease LEFT LEG Surgical History History of parathyroidectomy (Chronic) PARTIAL History of back surgery L3-L4 History of left hip replacement History of right hip replacement X2 Hx of hernia repair Family History Father Myocardial infarction Mother Gout CHF (congestive heart failure) Social History Preferred Language: Pakistani Communication Ability: Effective Beliefs That Will Affect Care: None Current Living Situation: Spouse Feels Safe at Home: Yes Smoking Status: Former smoker Second Hand Exposure: No ; Hx Alcohol Use: No Hx Substance Use: No Review of Systems Review of Systems: All systems reviewed & are unremarkable except as noted in HPI & below Physical Exam Constitutional: well developed; no acute distress Eyes: no scleral abnormality and no corneal abnormality ENMT: Mouth: no oral mucosal abnormality and oral mucous membranes not dry Neck: normal visual inspection and trachea midline Respiratory: normal respiratory effort Auscultation: lungs clear to auscultation bilaterally Cardiovascular: Rate/Rhythm: + bradycardic Heart Sounds: normal S1 and normal S2 Vessels: no JVD Extremities: + edema Gastrointestinal (Abdomen): Percussion/Palpation: abdomen soft; abdomen nontender Musculoskeletal: Extremities: no cyanosis and no clubbing Skin: normal turgor; no rashes Neurologic: Motor/Sensory: no tremor and no asterixis Psychiatric: Orientation: alert and oriented x 3 Results & Data Vital Signs (Past 12 Hours) Vital Signs Temp Pulse Pulse Resp BP BP Pulse Ox 03/04/19 11:53 36.4 C L 53 L 17 125/88 97 03/04/19 08:25 54 L 03/04/19 08:08 37.0 C 64 20 188/84 H 194/77 H 94 03/04/19 05:30 60 199/80 H 92 03/04/19 03:46 36.9 C 54 L 20 181/73 H 92 Laboratory Results Laboratory Results - last 24 hr 03/03/19 03/03/19 03/03/19 13:28 16:09 19:33 Sodium Potassium Chloride Carbon Dioxide Anion Gap BUN Creatinine Est Cr Clr Drug Dosing Est GFR ( Amer) Est GFR (Non-Af Amer) BUN/Creatinine Ratio Glucose POC Glucose 157 H Estimat Average Glucose Hemoglobin A1c Calcium Troponin I 0.118 H* 0.367 H* Urine Color Urine Appearance Urine pH Ur Specific [place] Urine Protein Urine Glucose (UA) Urine Ketones Urine Blood Urine Nitrite Urine Bilirubin Urine Urobilinogen Ur Leukocyte Esterase Urine WBC (Auto) Urine RBC (Auto) U Hyaline Cast (Auto) U Epithel Cells (Auto) Urine Bacteria (Auto) 03/03/19 03/04/19 03/04/19 20:09 01:14 01:20 Sodium Potassium Chloride Carbon Dioxide Anion Gap BUN Creatinine Est Cr Clr Drug Dosing Est GFR ( Amer) Est GFR (Non-Af Amer) BUN/Creatinine Ratio Glucose POC Glucose 175 H Estimat Average Glucose Hemoglobin A1c Calcium Troponin I 0.661 H* Urine Color Yellow Urine Appearance Cloudy A Urine pH 5.0 Ur Specific [place] 1.019 Urine Protein 2+ H Urine Glucose (UA) Negative Urine Ketones Negative Urine Blood 3+ H Urine Nitrite Negative Urine Bilirubin Negative Urine Urobilinogen Negative Ur Leukocyte Esterase Trace H Urine WBC (Auto) 1-5 Urine RBC (Auto) >30 H U Hyaline Cast (Auto) 1-5 U Epithel Cells (Auto) 5-10 H Urine Bacteria (Auto) Negative 03/04/19 03/04/19 03/04/19 07:01 07:01 07:42 Sodium 139 Potassium 4.0 Chloride 107 Carbon Dioxide 24 Anion Gap 8.0 BUN 68 H Creatinine 2.81 H Est Cr Clr Drug Dosing 27.8 Est GFR ( Amer) 24.0 Est GFR (Non-Af Amer) 20.7 BUN/Creatinine Ratio 24.1 H Glucose 118 H POC Glucose 115 H Estimat Average Glucose 105 Hemoglobin A1c 5.3 Calcium 8.9 Troponin I 0.802 H* Urine Color Urine Appearance Urine pH Ur Specific [place] Urine Protein Urine Glucose (UA) Urine Ketones Urine Blood Urine Nitrite Urine Bilirubin Urine Urobilinogen Ur Leukocyte Esterase Urine WBC (Auto) Urine RBC (Auto) U Hyaline Cast (Auto) U Epithel Cells (Auto) Urine Bacteria (Auto) 03/04/19 11:54 Sodium Potassium Chloride Carbon Dioxide Anion Gap BUN Creatinine Est Cr Clr Drug Dosing Est GFR ( Amer) Est GFR (Non-Af Amer) BUN/Creatinine Ratio Glucose POC Glucose 157 H Estimat Average Glucose Hemoglobin A1c Calcium Troponin I Urine Color Urine Appearance Urine pH Ur Specific [place] Urine Protein Urine Glucose (UA) Urine Ketones Urine Blood Urine Nitrite Urine Bilirubin Urine Urobilinogen Ur Leukocyte Esterase Urine WBC (Auto) Urine RBC (Auto) U Hyaline Cast (Auto) U Epithel Cells (Auto) Urine Bacteria (Auto) PG Care Time/CCT Total # of Minutes Spent Total Time Spent with Patient: Total time spent is greater than 50% in coordination of care (as documented) at patient's floor/unit and/or counseling patient: (1) CHF (congestive heart failure) Heart failure chronicity: unspecified Heart failure type: unspecified Qualified Code(s): I50.9 - Heart failure, unspecified
[2019-03-04] MEDS: INSULIN ASPART 100 UNITS/ML 3 ML PEN SC SCH ×3 (13:00→21:34)
--- NOTE | 2019-03-04 13:42 | Cardiology Consultation ---
Date of Consultation March 04, 2019 Assessment & Plan (1) Diastolic heart failure: 2. Persistent atrial fibrillation 3. Elevated troponin 4. Ymie-ia-jywjmpqo nonobstructive coronary artery disease 5. Moderate mitral regurgitation 6. Severe pulmonary hypertension, RV dilation 7. Acute on chronic renal insufficiency 8. Hypertension 9. Anemia/thrombocytopenia 10. LE PAD - LT SFA, tibial disease 11. Gouty arthropathy Admitted with some degree of acute on chronic diastolic heart failure in the setting of CKD Unclear precipitant - question change in BP meds, worsened hypertension, infection (viral/sinusitis) Weakness/falls likely multifactorial but worsened in part by acute HF exac erbation. Post IV lasix x 1 congestion seems improved -- IVC normal on echo, minimal congestion on exam. Low suspicion rising troponin represents true ACS and feel can hold of on anticoagulation. Reasonable to perform stress test at some point. Recommendations: -- Hold off on additional diuretics for now. Resume maintenance lasix when renal function stable -- Continue home metoprolol. If BP remains high would consider hydralazine -- Continue Eliquis. Start ASA 81mg daily -- Nuclear SPECT as an outpatient or could be done Thursday if still here over weekend. -- home statin Will continue to follow. History of Present Illness Attending Physician: Karen Dumas MD History of Present Illness Mr. Haddad is a 78-year-old man with a history of persistent atrial fibrillation, nonobstructive [id number] coronary artery disease, chronic kidney disease, diabetes, hyperlipidemia, mild obstructive sleep apnea, and PAD admitted in the setting of generalized weakness, unsteadiness and shortness of breath. Unsteadiness has been an active issue for months. Had been making progress with physical therapy. Starting 3 days ago had several episodes where was forced to slide to the ground while trying to walk and was unable to get up without assistance. Denies associated chest pain, palpitations or presyncope. Weakness has been accompanied by increased LE edema and shortness of breath with wheezing. Patient feels all symptoms seemed to begin with change from lisinopril to nifedipine in the setting of hyperkalemia. Dr. Carney advised to stop nifedipine. Was to be replaced with amlodipine. On admission hypertensive to 200s, O2 sats to 89%, proBNP [id number] and chest Xray with mild congestion. ECG showed AF with RBBB but no ST changes. Trop positive at 0.1 and has trended up to 0.8. Repeat echo showed preserved LV function, question inferior hypokinesis, moderate MR, severe PH and RV dilation. IVC normal after had received 40 IV lasix in ED. Negative 350 since admission. Today feeling better. Breathing easier. Feels stronger but still concerned about falling. Prior cardiovascular studies: Cardiac catheterization (12/2009): (In [place]) left main no significant disease, dominant RCA very large vessel with no significant disease lad not reach the apex, LAD 50 percent [id number] obstruction in proximal segment before tapers prior to apex. Circumflex no significant disease. EF 65 percent, elevated end-diastolic pressure 30-35. Allergies Allergy/AdvReac Type Severity Reaction Status Date / Time latex Allergy Unknown LOCAL SKIN Verified 03/03/19 08:42 IRRITATION lisinopril Allergy Unknown hyperkalemi Verified 03/03/19 08:42 a sulfamethoxazole AdvReac increases Verified 03/03/19 08:42 [From Bactrim] potassium trimethoprim [From Bactrim] AdvReac increases Verified 03/03/19 08:42 potassium Home Medications Home Medications Medication Instructions Recorded Confirmed Type Eliquis 5 mg PO BID 10/08/18 03/03/19 History acetaminophen [Tylenol Arthritis 1,300 mg PO QAM 10/08/18 03/03/19 History Pain] ascorbic acid (vitamin C) 1,000 mg PO QAM 10/08/18 03/03/19 History gabapentin 100 mg PO HS 10/08/18 03/03/19 History garlic 1,000 mg PO QAM 10/08/18 03/03/19 History glipizide 5 mg PO QAM 10/08/18 03/03/19 History ipratropium bromide 2 spray INTRANASAL BID 10/08/18 03/03/19 History metoprolol tartrate 25 mg PO BID 10/08/18 03/03/19 History multivitamin 1 tab PO QAM 10/08/18 03/03/19 History pravastatin 10 mg PO QAM 10/08/18 03/03/19 History ranitidine HCl 300 mg PO QAM 10/08/18 03/03/19 History febuxostat [Uloric] 40 mg PO QAM 12/14/18 03/03/19 History cholecalciferol (vitamin D3) 1,000 1,000 units PO QAM 01/17/19 03/03/19 History unit capsule [id number]-[id number]-xid-epa-fish oil 120 2 cap PO QAM cap 01/17/19 03/03/19 History mg-180 mg-60 mg-1,200 mg capsule, DR hernandez stanol amarjit 450 mg tablet 900 mg PO QAM tab 01/17/19 03/03/19 History acetaminophen [Tylenol Arthritis 650 mg PO HS 03/03/19 03/03/19 History Pain] amlodipine 2.5 mg PO QAM 03/03/19 03/03/19 History fluvoxamine 100 mg PO HS 03/03/19 03/03/19 History furosemide 20 mg PO QAM 03/03/19 03/03/19 History Patient History Medical History Gout (Chronic) Hypertension (Chronic) Stage 3 chronic kidney disease (Chronic) Afib Arthritis Cataracts, both eyes RIGHT EYE BEING DONE FIRST Diabetes GERD (gastroesophageal reflux disease) High cholesterol History of stress test 2009 [place] D/T PASSED OUT WENT TO [facility]. 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 Hx of fall 09/2018 - SEEN IN ED - HAD CT OF HEAD - NEGATIVE Peripheral artery disease LEFT LEG Surgical History History of parathyroidectomy (Chronic) PARTIAL History of back surgery L3-L4 History of left hip replacement History of right hip replacement X2 Hx of hernia repair Family History Father Myocardial infarction Mother Gout CHF (congestive heart failure) Social History Preferred Language: Arabic Communication Ability: Effective Beliefs That Will Affect Care: None Current Living Situation: Spouse Feels Safe at Home: Yes Smoking Status: Former smoker Second Hand Exposure: No ; Hx Alcohol Use: No Hx Substance Use: No Review of Systems Review of Systems: All systems reviewed & are unremarkable except as noted in HPI & below Physical Exam Physical Exam: General: Comfortable, no acute distress Eyes: Sclerae anicteric, extraocular movements intact HENT: Oropharynx clear mucous membranes moist Neck: No JVD. Lungs: Diminished at base, no rhonchi or wheezes Cardiac: slow, irregularly irregular, no murmurs Abdomen: Soft, nontender, positive bowel sounds. Extremities: Well perfused, trace LE edema, RT > LT Skin: No rashes or lesions. Neuro: Nonfocal Psych: Alert orient x3, normal affect and mood Results & Data Vital Signs (Past 12 Hours) Vital Signs Temp Pulse Pulse Resp BP BP Pulse Ox 03/04/19 11:53 97.5 F L 53 L 17 125/88 97 03/04/19 08:25 54 L 03/04/19 08:08 98.6 F 64 20 188/84 H 194/77 H 94 03/04/19 05:30 60 199/80 H 92 03/04/19 03:46 98.4 F 54 L 20 181/73 H 92 PG Care Time/CCT Total # of Minutes Spent Total Time Spent with Patient: Total time spent is greater than 50% in coordination of care (as documented) at patient's floor/unit and/or counseling patient:
[2019-03-04 17:36] LABS: BUN Creatinine Ratio 25.2 (10-20); Calcium 8.9 mg/dl (8.5-10.1); Creatinine Clr Calc Pharmacy 26.4 ml/min; Est GFR (African American) 22.6; Est GFR (Non-African American) 19.5; Potassium 3.8 mmol/L (3.5-5.1)
--- NOTE | 2019-03-04 19:13 | Hospitalist Progress Note ---
Date of Service March 04, 2019 Assessment & Plan (1) Weakness: Acute on chronic lower extremity weakness but with acute portion causing more like "drop attacks" with upper and lower extremities getting weak. No bowel or bladder issues. He is able to ambulate Had an episode on 03/04 that was brief and corresponded to a 20 second period on tele when he had bradycardia into the 40s He has a completely nonfocal neuro exam currently (except left great toe plantarflexion weakness) which argues against anything structural in the spine or brain. I don't think he needs spine or brain imaging at this time Could be due to episodes of bradycardia? Versus related to ongoing sinusitis -continue tele monitoring -appreciate Cardio consult -lowering beta elizabeth dose -treating sinusitis -get PT/OT involvement -Consult Neurology to see if this could be a Neuro process (2) Bradycardia: With slow Afib, rates in to the 40s at times and symptomatic as above -reduce metoprolol to 12.5mg po bid -follow on tele (3) CHF (congestive heart failure): Acute on chronic diastolic CHF ECHO with preserved EF, mod MR, and RSVP>60 With development of peripheral edema, no real dyspnea -Possible edema secondary to nifedipine use -proBNP was elevated at 28k on admission CXR with some pulm edema -was given IV lasix x 2 doses, then po lasix this AM [employer] rising -hold po lasix for now -follow daily weights, low Na+ diet, I/Os (4) Elevated troponin: Demand ischemia secondary to CKD and acute episodes of possible cardiogenic syncope stabilized out at 0.1/0.118/0.3/0.68/0.8 Seen by Cardiology-recommends ASA, other current meds -recommends Nuc Stress on Thursday if still here; otherwise can be done as outpt (5) Hypertension: Recent d/c of lisinopril due to elevated K Nifedipine noted to cause LE swelling BPs here at times almost 200 sys -continue metoprolol but lower dose -add on hydralazine 10mg po tid -can give nitropaste prn as per Nephro -IV hydralazine as needed (6) Stage 3 chronic kidney disease: Baseline cr is 2.3-2.4, was 2.6 on admission and now down to 2.5 -avoid nephrotoxins -renally dose meds -no need for urgent HD at this time Appreciate Nephrology consultation -follow BMP -will dose lasix po tomorrow if manager cash not rising again (7) Atrial fibrillation: With slow rates in the 40s-50s -decrease metoprolol to 12.5mg po bid continue home Eliquis (8) Chronic sinusitis: Noted on CT and pt with sx Will start on augmentin x 2 weeks Started probiotics (9) Type 2 diabetes mellitus: dc home glipizide while here due to risk of hypoglycemia if becomes NPO A1c is only 5.3%--> could likely decrease dose of Glipizide down to 2.5mg daily (10) Dyslipidemia: continue home statin (11) Edema: Likely related to nifedipine improved after IV lasix (12) Gout: continue uloric from home (13) Anxiety: continue home fluvoxamine (14) Obstructive sleep apnea: mild, does not use CPAP (15) Acute renal insufficiency: [employer] up slightly today to 2.8 from 2.6 (16) Anemia: hgb only 10.5 Follow CBC (17) Mitral regurgitation: moderate on ECHO -follow as outpt (18) DVT prophylaxis: Ronaldo Dispo-remain on tele for further monitoring for arrhythmia causing presyncope Subjective Pt reports he has had intermittent weakness in his lower extremities for 1-2 months, but then had an acute worsening in all over body weakness in the last 2 days prior to admission. Reports on Thursday this week he felt the strongest he has felt in months after PT. Then, the next day he had an episode where his whole body just gave out, including his arms. This happened again and he felt very weak and tired, then came to the hospital after he fell down onto the bathroom floor. Reports associated heart palpitations with it, no chest pain, does not pass out. Has had chronic right buttock pain that radiates to his right posterior thigh at times, no numbness or tingling down legs or feet except has left foot tingling and neuropathy for years since he had a broken toe and a foot injury. Denies shooting pains down legs. He has some urinary incontinence at home but this is not new and he attributes it to lasix use. Denies any pain or numbness/tingling in arms/hands. Has had a sinus pain across his cheekbones and frontal part of his face for a few weeks. Had a low grade temp for 2 nights recently as well. Also has a long history for years of getting headaches whenever his blood glucose drops too low. Review of Systems Review of Systems: All systems reviewed & are unremarkable except as noted in HPI & below (denies SOB or CP) Physical Exam Constitutional: WD/WN, vitals as above Eyes: PERRL, conjunctivae normal, anicteric sclerae EOM intact bilaterally; no nystagmus ENMT: external ear and nose normal, oropharynx normal Neck: trachea midline, no thyromegaly Respiratory: normal respiratory effort, lungs clear to auscultation Cardiovascular: Rate/Rhythm: regular rhythm and + bradycardic Heart Sounds: no murmur Extremities: + edema (1+ pitting edema to knees bilat) Gastrointestinal (Abdomen): normal bowel sounds, soft, nontender, no hepatosplenomegaly Musculoskeletal: Extremities: extremities normal to inspection; no cyanosis and no clubbing Skin: no rashes, warm and dry Neurologic: patellar DTR's 2+ bilat, sensation intact and PERRL, EOMI, accommodation nl, no face palsy, no dysarthria CN's II-XI intact bilaterally, moves all extremities and awake; no focal motor deficits (except 4/5 strength in left great toe dorsiflexion) Speech / Cognition: normal speech and no expressive aphasia Motor/Sensory: no tremor, no pronator drift and no sensory deficit Coordination: normal [id number] test, normal [id number] test and normal rapid alternating movements Psychiatric: A+Ox3, euthymic affect Genitourinary: Toribio in place with clear, yellow urine Results & Data Vital Signs (Past 12 Hours) Vital Signs Temp Pulse Pulse Resp BP BP Pulse Ox 03/04/19 19:04 50 L 03/04/19 15:52 36.4 C L 53 L 20 172/76 H 167/83 H 97 03/04/19 11:53 36.4 C L 53 L 17 125/88 97 03/04/19 08:25 54 L 03/04/19 08:08 37.0 C 64 20 188/84 H 194/77 H 94 Laboratory Results 03/04/19 03/04/19 03/04/19 Range/Units 21:27 16:58 15:56 Sodium 137 (136-145) mmol/L Potassium 3.8 (3.5-5.1) mmol/L Chloride 104 (98-107) mmol/L Carbon Dioxide 24 (21-32) mmol/L Anion Gap 9.0 (3-11) BUN 75 H (7-18) mg/dl Creatinine 2.96 H (0.6-1.4) mg/dl Est Cr Clr Drug Dosing 26.4 ml/min Est GFR ( Amer) 22.6 Est GFR (Non-Af Amer) 19.5 BUN/Creatinine Ratio 25.2 H (10-20) Glucose 141 H (70-99) mg/dl POC Glucose 112 H 147 H (70-99) Estimat Average Glucose mg/dl Hemoglobin A1c (4.5-5.6) % Calcium 8.9 (8.5-10.1) mg/dl Total Creatine Kinase 243 (39-308) U/L Troponin I (0-0.045) ng/ml Urine Color Urine Appearance (Clear) Urine pH (4.5-7.5) Ur Specific Wol[place] (1.000-1.030) Urine Protein (Negative) Urine Glucose (UA) (Negative) Urine Ketones (Negative) Urine Blood (Negative) Urine Nitrite (Negative) Urine Bilirubin (Negative) Urine Urobilinogen (Negative) Ur Leukocyte Esterase (Negative) Urine WBC (Auto) (0-5) /hpf Urine RBC (Auto) (0-4) /hpf U Hyaline Cast (Auto) (0-5) /lpf U Epithel Cells (Auto) (0-5) /lpf Urine Bacteria (Auto) (Negative) 03/04/19 03/04/19 03/04/19 Range/Units 11:54 07:42 07:01 Sodium (136-145) mmol/L Potassium (3.5-5.1) mmol/L Chloride (98-107) mmol/L Carbon Dioxide (21-32) mmol/L Anion Gap (3-11) BUN (7-18) mg/dl Creatinine (0.6-1.4) mg/dl Est Cr Clr Drug Dosing ml/min Est GFR ( Amer) Est GFR (Non-Af Amer) BUN/Creatinine Ratio (10-20) Glucose (70-99) mg/dl POC Glucose 157 H 115 H (70-99) Estimat Average Glucose 105 mg/dl Hemoglobin A1c 5.3 (4.5-5.6) % Calcium (8.5-10.1) mg/dl Total Creatine Kinase (39-308) U/L Troponin I (0-0.045) ng/ml Urine Color Urine Appearance (Clear) Urine pH (4.5-7.5) Ur Specific Wol[place] (1.000-1.030) Urine Protein (Negative) Urine Glucose (UA) (Negative) Urine Ketones (Negative) Urine Blood (Negative) Urine Nitrite (Negative) Urine Bilirubin (Negative) Urine Urobilinogen (Negative) Ur Leukocyte Esterase (Negative) Urine WBC (Auto) (0-5) /hpf Urine RBC (Auto) (0-4) /hpf U Hyaline Cast (Auto) (0-5) /lpf U Epithel Cells (Auto) (0-5) /lpf Urine Bacteria (Auto) (Negative) 03/04/19 03/04/19 03/04/19 Range/Units 07:01 01:20 01:14 Sodium 139 (136-145) mmol/L Potassium 4.0 (3.5-5.1) mmol/L Chloride 107 (98-107) mmol/L Carbon Dioxide 24 (21-32) mmol/L Anion Gap 8.0 (3-11) BUN 68 H (7-18) mg/dl Creatinine 2.81 H (0.6-1.4) mg/dl Est Cr Clr Drug Dosing 27.8 ml/min Est GFR ( Amer) 24.0 Est GFR (Non-Af Amer) 20.7 BUN/Creatinine Ratio 24.1 H (10-20) Glucose 118 H (70-99) mg/dl POC Glucose (70-99) Estimat Average Glucose mg/dl Hemoglobin A1c (4.5-5.6) % Calcium 8.9 (8.5-10.1) mg/dl Total Creatine Kinase (39-308) U/L Troponin I 0.802 H* 0.661 H* (0-0.045) ng/ml Urine Color Yellow Urine Appearance Cloudy A (Clear) Urine pH 5.0 (4.5-7.5) Ur Specific Wol[place] 1.019 (1.000-1.030) Urine Protein 2+ H (Negative) Urine Glucose (UA) Negative (Negative) Urine Ketones Negative (Negative) Urine Blood 3+ H (Negative) Urine Nitrite Negative (Negative) Urine Bilirubin Negative (Negative) Urine Urobilinogen Negative (Negative) Ur Leukocyte Esterase Trace H (Negative) Urine WBC (Auto) 1-5 (0-5) /hpf Urine RBC (Auto) >30 H (0-4) /hpf U Hyaline Cast (Auto) 1-5 (0-5) /lpf U Epithel Cells (Auto) 5-10 H (0-5) /lpf Urine Bacteria (Auto) Negative (Negative) PG Care Time/CCT Total # of Minutes Spent Total Time Spent with Patient: Total time spent is greater than 50% in coordination of care (as documented) at patient's floor/unit and/or counseling patient: (1) CHF (congestive heart failure) Heart failure chronicity: unspecified Heart failure type: unspecified Qualified Code(s): I50.9 - Heart failure, unspecified (2) Anemia Anemia type: unspecified type Qualified Code(s): D64.9 - Anemia, unspecified
[2019-03-04] MEDS ORDERED: NITROGLYCERIN 2% OINTMENT 30GM TUBE EXT PRN (19:17)
[2019-03-04] MEDS ORDERED: HydrALAZINE 10 MG TAB PO SCH (21:00)
--- NOTE | 2019-03-04 21:02 | Ultrasound Report ---
US duplex renal artery CLINICAL HISTORY: DAVEY, hypertension COMPARISON STUDY: No previous studies for comparison. TECHNIQUE: Grayscale and color and duplex Doppler sonography of the abdominal aorta and both renal ar teries was performed. FINDINGS: The right kidney measures 10.6 cm in maximal dimension and the left measures 9.7 cm. There was no hydronephrosis. Note was made of a 2.8 cm right renal cyst and a 1.9 cm left renal cyst. The a bdominal aorta was obscured on this examination. The left renal artery was also obscured. No elevated velocities were identified within the right renal artery. Both renal veins were patent. IMPRESSION: 1. Nondiagnostic evaluation for renal artery stenosis given obscuration of the abdominal aorta and le ft renal artery. No elevated velocities within the right renal artery. 2. No hydronephrosis. Electronically signed by: Mychal Flores M.D. 03/04/2019 9:01 PM
[2019-03-04] MEDS: ASPIRIN 81 MG ECTAB PO SCH (21:32)
[2019-03-04] MEDS: FLUVOXAMINE MALEATE 50 MG TAB PO SCH (21:34)
[2019-03-04] MEDS: GABAPENTIN 100 MG CAP PO SCH (21:34)
[2019-03-04] MEDS: ACETAMINOPHEN 325 MG TAB PO SCH (21:35)
[2019-03-05 07:13] LABS: Hematocrit (blood only) 29.4 % (42-52); Hemoglobin 10.2 g/dL (14.0-18.0); Mean Corpuscular Hemoglobin 31.7 pg (25-34); Mean Corpuscular Hgb Conc 34.7 g/dL (32-36); Mean Corpuscular Volume 91.3 fL (80-100); Mean Platelet Volume 11.4 fL (7.4-10.4); Platelet Count 108 K/uL (130-400); RDW Coefficient of Variation 13.1 % (11.5-14.5); RDW Standard Deviation 43.7 fL (36.4-46.3); Red Blood Count 3.22 M/uL (4.7-6.1); White Blood Count 6.71 K/uL (4.8-10.8)
[2019-03-05 07:31] LABS: Albumin Level 2.7 gm/dl (3.4-5.0); BUN Creatinine Ratio 27.8 (10-20); Calcium 8.9 mg/dl (8.5-10.1); Creatinine Clr Calc Pharmacy 29.2 ml/min; Est GFR (African American) 25.8; Est GFR (Non-African American) 22.2; Phosphorus 3.6 mg/dl (2.5-4.9); Potassium 3.6 mmol/L (3.5-5.1)
[2019-03-05] MEDS: AMOXICILLIN/CLAVULANATE 500 MG TAB PO SCH ×2 (07:59→17:19)
[2019-03-05] MEDS: MULTIVITAMIN TAB PO SCH (07:59)
[2019-03-05] MEDS: PRAVASTATIN SOD 10 MG TAB PO SCH (08:00)
[2019-03-05] MEDS: ASPIRIN 81 MG ECTAB PO SCH (08:01)
[2019-03-05] MEDS: OMEGA-3 (PURIFIED FISH OIL) 1 GM CAP PO SCH (08:02)
[2019-03-05] MEDS: CHOLECALCIFEROL 1,000 UNITS TAB PO SCH (08:02)
[2019-03-05] MEDS: ASCORBIC ACID 500 MG TAB PO SCH (08:02)
[2019-03-05] MEDS: IPRATROPIUM BROMIDE NASAL SPRAY 0.06% 15ML NAE SCH ×2 (08:02→20:40)
[2019-03-05] MEDS: APIXABAN 5 MG TABLET PO SCH ×2 (08:03→20:36)
[2019-03-05] MEDS: ACETAMINOPHEN 500 MG TAB PO SCH (08:04)
[2019-03-05] MEDS: FEBUXOSTAT 40 MG TABLET PO SCH (08:04)
[2019-03-05] MEDS: INSULIN ASPART 100 UNITS/ML 3 ML PEN SC SCH ×4 (08:05→21:18)
[2019-03-05] MEDS: LACTOBACILLUS ACIDOPHILUS (FLORANEX) TAB PO SCH ×4 (08:11→20:34)
[2019-03-05] MEDS: METOPROLOL TARTRATE 25 MG TAB PO SCH ×2 (08:24→20:39)
[2019-03-05] MEDS ORDERED: HydrALAZINE 10 MG TAB PO SCH ×2 (09:00)
--- NOTE | 2019-03-05 09:18 | Nephrology Progress Note ---
Date of Service March 05, 2019 Assessment & Plan (1) Acute renal insufficiency: Baseline creatinine approximately 2.3 mg/dL. CKD attributed to predominantly microvascular disease. Patient was found to have evidence of congestive heart failure on admission. CXR showing early signs of pulmonary vascular congestion interstitial edema which is mild. 40 mg of IV Lasix was provided. I/O's remained fairly matched. Furosemide 20 mg PO was provided yesterday morning as well. Symptoms however are atypical for congestive heart failure. I also note that BP has remains accelerated. TT demonstrated mild diastolic dysfunction, no wall motion abnormalities and no significant evidence of valvular heart disease. Atrial fibrillation with a heart rate <50 bpm persists. His volume status certainly appears euvolemic. Continue 20 mg PO furosemide daily to encourage an even to slightly negative fluid balance is acceptable. Creatinine remains . To help completed evaluation his CPK has been requested. I think additional evaluation will be needed to discern some of the patient's lower extremity weakness. He does have some weakness on extension of the left lower extremity and is unclear to me whether this is a new or chronic finding. Thankfully he is nonoliguric is metabolic profile is otherwise appropriate. There is certainly no indication for dialysis at this time. Patient's medications are appropriately dosed for kidney function. He has progressed being provided p.r.n. hydralazine for accelerated hypertension. To complete evaluation of DAVEY I and accelerated hypertension a renal artery duplex has been requested. I/O's will be documented. A repeat metabolic profile has been requested for tomorrow AM. I will follow up at that time. (2) Stage 3 chronic kidney disease: Follows with Dr. Carney as an outpatient (3) CHF (congestive heart failure): (4) Atrial fibrillation: Anticoagulated with Eliquis. Remains on tele. Cardiology following. Metoprolol has been reduced and it appears held this AM due to low heart rate. (5) Elevated troponin: (6) Hypertension: RONALD/ARB avoided due to elevated creatinine and history of DAVEY. Nifedipine noted to have resulted in LE swelling and possibly CHF exacerbation, last dose was 03/01. Hydralazine provided yesterday in addition to metoprolol. Hydralazine increased from 10 mg TID to 20 mg TID this morning. IF BP remains accelerated following AM medications, I would suggest a dose of PO clonidine. Renal artery duplex was non-diagnostic. (7) Weakness: Neuro consult pending. Subjective Episode of palpitations while on the commode yesterday evening. This was associated with an elevated heart rate. Tyler relates that similar symptoms have persisted at home. He continues to experience lower extremity weakness with standing. Due to difficulty making it to the bathroom and history of struggling to use a urinal in the past, he states that he requested Toribio catheter placement yesterday. Tyler was seen with his at the bedside this morning. BP remains accelerated. He denies dyspnea or chest pain. He denies headaches or visual changes. Review of Systems Review of Systems: All systems reviewed & are unremarkable except as noted in HPI & below Physical Exam Constitutional: well developed; no acute distress Eyes: no scleral abnormality and no corneal abnormality ENMT: Mouth: no oral mucosal abnormality and oral mucous membranes not dry Neck: normal visual inspection and trachea midline Respiratory: normal respiratory effort Auscultation: lungs clear to auscultation bilaterally Cardiovascular: Rate/Rhythm: + bradycardic Heart Sounds: normal S1 and normal S2 Vessels: no JVD Extremities: + edema (+1 pitting just above the ankle) Gastrointestinal (Abdomen): Percussion/Palpation: abdomen soft; abdomen nontender Musculoskeletal: Extremities: no cyanosis and no clubbing Skin: normal turgor; no rashes Neurologic: Motor/Sensory: no tremor and no asterixis Psychiatric: Orientation: alert and oriented x 3 Results & Data Vital Signs (Past 12 Hours) Vital Signs Temp Pulse Pulse Resp BP BP Pulse Ox 03/05/19 07:00 36.7 C 57 L 20 193/76 H 97 03/05/19 04:16 36.9 C 50 L 18 163/73 H 98 03/05/19 01:35 60 03/05/19 00:04 36.8 C 61 18 176/76 H 94 03/04/19 21:31 65 158/72 H Laboratory Results Laboratory Results - last 24 hr 03/04/19 03/04/19 03/04/19 11:54 15:56 16:58 WBC RBC Hgb Hct MCV MCH MCHC RDW Std Deviation RDW Coeff of Ekta Plt Count MPV Sodium 137 Potassium 3.8 Chloride 104 Carbon Dioxide 24 Anion Gap 9.0 BUN 75 H Creatinine 2.96 H Est Cr Clr Drug Dosing 26.4 Est GFR ( Amer) 22.6 Est GFR (Non-Af Amer) 19.5 BUN/Creatinine Ratio 25.2 H Glucose 141 H POC Glucose 157 H 147 H Calcium 8.9 Phosphorus Total Creatine Kinase 243 Albumin 03/04/19 03/05/19 03/05/19 21:27 06:30 06:30 WBC 6.71 RBC 3.22 L Hgb 10.2 L Hct 29.4 L MCV 91.3 MCH 31.7 MCHC 34.7 RDW Std Deviation 43.7 RDW Coeff of Ekta 13.1 Plt Count 108 L MPV 11.4 H Sodium 140 Potassium 3.6 Chloride 107 Carbon Dioxide 24 Anion Gap 9.0 BUN 74 H Creatinine 2.65 H D Est Cr Clr Drug Dosing 29.2 Est GFR ( Amer) 25.8 Est GFR (Non-Af Amer) 22.2 BUN/Creatinine Ratio 27.8 H Glucose 110 H POC Glucose 112 H Calcium 8.9 Phosphorus 3.6 Total Creatine Kinase Albumin 2.7 L 03/05/19 07:45 WBC RBC Hgb Hct MCV MCH MCHC RDW Std Deviation RDW Coeff of Ekta Plt Count MPV Sodium Potassium Chloride Carbon Dioxide Anion Gap BUN Creatinine Est Cr Clr Drug Dosing Est GFR ( Amer) Est GFR (Non-Af Amer) BUN/Creatinine Ratio Glucose POC Glucose 107 H Calcium Phosphorus Total Creatine Kinase Albumin PG Care Time/CCT Total # of Minutes Spent Total Time Spent with Patient: Total time spent is greater than 50% in coordination of care (as documented) at patient's floor/unit and/or counseling patient: (1) CHF (congestive heart failure) Heart failure chronicity: unspecified Heart failure type: unspecified Qualified Code(s): I50.9 - Heart failure, unspecified
[2019-03-05] MEDS ORDERED: FUROSEMIDE 20 MG TAB PO STA (10:28)
--- NOTE | 2019-03-05 10:51 | Neurology Consultation ---
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 This patient does have the clinical triad of NPH including and apractic/magnetic gait pattern, urinary incontinence, and a history of progressive difficulty with short-term memory/cognitive functioning. 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 I do not see any signs or symptoms suggestive of Parkinson's disease at this time. I would like this patient to have an MRI of the brain and an MRI of the cervical spine if possible. I understand that he has 20-year-old total hip arthroplasties. I am uncertain if this orthopedic hardware would be a contraindication to brain and/or cervical spine MRI. Based on this patient's gait pattern, I think he should also have a neurosurgical assessment for consideration of a TOP LIFT SCOURER shunt. Thus, he would need an outpatient referral to an appropriate tertiary center for consideration of placement of a temporary lumbar drain to assess response and to determine if he is an appropriate candidate for TOP LIFT SCOURER shunting. Also, if we are able to obtain the cervical spine MRI and if the study reveals significant progressive spinal stenosis/myelopathy, a surgical consultation should be placed in this regard as well. I do not have any further recommendations for his diabetic peripheral neuropathy. His diabetes appears to be well controlled based on his most recent hemoglobin A1c of 5.3. Please contact me if I may be of further assistance. History of Present Illness Reason for Consultation: gait dysfunction, falls Requesting Physician: Karen Dumas Attending Physician: Karen Dumas MD History of Present Illness The patient is a 78-year-old male with a chief complaint of gait dysfunction/frequent falls. He complains of chronic progressive difficulty with gait which began insidiously several years ago. His condition has significantly worsened over the past few months, however. He has had several recent falls from which she is unable to get up on his own. He admits that he has been taking very short shuffling type steps with difficulty lifting his feet off the floor. He also admits to some ongoing difficulty with urinary incontinence. He also has been having some mild difficulty with short-term memory which has been problematic over the past year or so as well. His corroborates this history. No tremors, rigidity, or bradykinesia. Past medical history notable for diabetic peripheral neuropathy. The patient does admit to chronic persistent mild distal lower extremity numbness and paresthesias. History also notable for multilevel lumbar laminectomy done many years ago. He also has been having some difficulty with mild intermittent cervical radiculopathy to the right upper limb. Allergies Allergy/AdvReac Type Severity Reaction Status Date / Time latex Allergy Unknown LOCAL SKIN Verified 03/03/19 08:42 IRRITATION lisinopril Allergy Unknown hyperkalemi Verified 03/03/19 08:42 a sulfamethoxazole AdvReac increases Verified 03/03/19 08:42 [From Bactrim] potassium trimethoprim [From Bactrim] AdvReac increases Verified 03/03/19 08:42 potassium Home Medications Home Medications Medication Instructions Recorded Confirmed Type Eliquis 5 mg PO BID 10/08/18 03/03/19 History acetaminophen [Tylenol Arthritis 1,300 mg PO QAM 10/08/18 03/03/19 History Pain] ascorbic acid (vitamin C) 1,000 mg PO QAM 10/08/18 03/03/19 History gabapentin 100 mg PO HS 10/08/18 03/03/19 History garlic 1,000 mg PO QAM 10/08/18 03/03/19 History glipizide 5 mg PO QAM 10/08/18 03/03/19 History ipratropium bromide 2 spray INTRANASAL BID 10/08/18 03/03/19 History metoprolol tartrate 25 mg PO BID 10/08/18 03/03/19 History multivitamin 1 tab PO QAM 10/08/18 03/03/19 History pravastatin 10 mg PO QAM 10/08/18 03/03/19 History ranitidine HCl 300 mg PO QAM 10/08/18 03/03/19 History febuxostat [Uloric] 40 mg PO QAM 12/14/18 03/03/19 History cholecalciferol (vitamin D3) 1,000 1,000 units PO QAM 01/17/19 03/03/19 History unit capsule [id number] oil 120 2 cap PO QAM cap 01/17/19 03/03/19 History mg-180 mg-60 mg-1,200 mg capsuleDR hernandez stanol amarjit 450 mg tablet 900 mg PO QAM tab 01/17/19 03/03/19 History acetaminophen [Tylenol Arthritis 650 mg PO HS 03/03/19 03/03/19 History Pain] amlodipine 2.5 mg PO QAM 03/03/19 03/03/19 History fluvoxamine 100 mg PO HS 03/03/19 03/03/19 History furosemide 20 mg PO QAM 03/03/19 03/03/19 History Patient History Medical History Gout (Chronic) Hypertension (Chronic) Stage 3 chronic kidney disease (Chronic) Afib Arthritis Cataracts, both eyes RIGHT EYE BEING DONE FIRST Diabetes GERD (gastroesophageal reflux disease) High cholesterol History of stress test 2009 [place] D/T PASSED OUT WENT TO [facility]. DR CURIEL - CURRENT H[employer]IST HAS RECORD OF THIS Hx of fall 09/2018 - SEEN IN ED - HAD CT OF HEAD - NEGATIVE Peripheral artery disease LEFT LEG Surgical History History of parathyroidectomy (Chronic) PARTIAL History of back surgery L3-L4 History of left hip replacement History of right hip replacement X2 Hx of hernia repair Family History Father Myocardial infarction Mother Gout CHF (congestive heart failure) Social History Preferred Language: Slovak Communication Ability: Effective Beliefs That Will Affect Care: None Current Living Situation: Spouse Feels Safe at Home: Yes Smoking Status: Former smoker Second Hand Exposure: No ; Hx Alcohol Use: No Hx Substance Use: No Review of Systems Constitutional: no fever and no chills Eyes: no blind spots and no diplopia Ear, Nose, Mouth, Throat: no tinnitus and no hearing loss Respiratory: no cough and no dyspnea Cardiovascular: no chest pain and no palpitations Gastrointestinal: no nausea and no vomiting Genitourinary: + as per Subjective / HPI and + urinary incontinence Musculoskeletal: + back pain and + neck pain; no myalgia Integumentary: no rash and no lesions Neurologic: as per Subjective / HPI, + falls and + numbness; no headache(s) Psychiatric: no depression and no anxiety Hematologic / Lymphatic: no easy bleeding and no easy bruising Physical Exam Physical Exam: The patient is a well-developed, well-nourished elderly male. He is alert and fully oriented. Recent and remote memory intact. Attention and concentration normal. Patient exhibits a normal spontaneous speech pattern as well as an age-appropriate fund of knowledge and normal comprehension of vocabulary. Visual mckeon full to confrontation. Visual acuity normal. Pupils equal round react to light and accommodation. Eye movements normal. There is no nystagmus or ptosis. Facial sensation intact. There is no facial droop or weakness. Hearing intact. Palate elevates to midline. Shoulder shrug intact. Tongue protrudes to midline. Sensory examination reveals a length dependent deficit to vibration and light touch affecting all 4 limbs. Deep tendon reflexes are diffusely diminished, absent at the Achilles tendons bilaterally. Plantar responses silent bilaterally. There is no dysdiadochokinesia or dysmetria [id number] or [id number]-[id number] bilaterally. Ophthalmoscopic examination reveals normal-appearing optic disks and posterior segments. No papilledema or hemorrhages. Carotid pulses normal bilaterally, no bruits to auscultation. Patient exhibits a wide-based magnetic shuffling type gait. He also has modest difficulty arising from a seated position. Muscle strength normal for the arms and legs proximally and distally. Muscle tone normal throughout. No rigidity or spasticity. No atrophy. No resting tremor or other abnormal movements observed. Results & Data Vital Signs (Past 12 Hours) Vital Signs Temp Pulse Pulse Resp BP BP Pulse Ox 03/05/19 07:00 36.7 C 57 L 20 193/76 H 97 03/05/19 04:16 36.9 C 50 L 18 163/73 H 98 03/05/19 01:35 60 03/05/19 00:04 36.8 C 61 18 176/76 H 94 Laboratory Results WBC 6.71, hemoglobin 10.2, hematocrit 29.4, platelet count 108, sodium 140, potassium 3.6, BUN 74, creatinine 2.65, glucose 110, calcium 8.[address] of the head completed March 03, 2019 reveals atrophy and chronic small vessel ischemic disease. No hemorrhage or acute process. Per my review there is an element of ventriculomegaly which appears out of proportion to the degree of generalized atrophy. This ventricular enlargement was also present on a previous CT of the head done this past September but does appear to be more prominent when compared with a CT of the head done in 2010. I reviewed the images as well as the radiologist interpretation of these tests. A CT of the cervical spine completed October 08, 2018 reveals moderate degenerative change throughout the entire cervical region with associated disc osteophyte complexes. There is a more prominent complex at the C3-4 level which may result in an element of central canal stenosis. I reviewed the images as well as the radiologist interpretation of this test.
--- NOTE | 2019-03-05 14:47 | Magnetic Resonance Report ---
MR brain wo con CLINICAL HISTORY: 78 years-old Male presenting with suspect NPH. TECHNIQUE: Multisequence, multiplanar MR imaging of the brain was performed without the use of intrav enous contrast. IV contrast: None. COMPARISON: CT head on 03/03/2019. FINDINGS: Localizer images: Unremarkable. Bone marrow signal intensity within the calvarium within normal limits. Normal midline sagittal structures. Proportional ventricular and sulcal prominence, likely age-relate d parenchymal volume loss, with the exception of the vertex where there is mild gyral crowding. The c allosal angle is abnormally acute. No mass effect or midline shift. No restricted diffusion or hemorr bib. Periventricular and subcortical white matter T2/FLAIR hyperintensity, nonspecific but likely in dicative of chronic small vessel ischemic change. No extra-axial fluid collection. T2 skull base flow voids preserved. Mucosal thickening in the spheno id sinus on the left. IMPRESSION: 1. 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 2. No acute intracranial pathology. 3. Suspected chronic small vessel ischemic change. Electronically signed by: Agus Barcenas M.D. 03/05/2019 2:45 PM
--- NOTE | 2019-03-05 15:44 | Magnetic Resonance Report ---
MR cervical spine wo con CLINICAL HISTORY: 78 years-old Male presenting with spinal stenosis, frequent falls, leg weakness, hi story of cervical spine surgery. TECHNIQUE: Multisequence, multiplanar MR imaging of the cervical spine was performed without the use of intravenous contrast. IV contrast: None. COMPARISON: CT from 10/08/2018. FINDINGS: Localizer images: Unavailable. Straightening of normal cervical lordosis likely due to multilevel degenerative changes. Bony edema n oted in the right facets at C6-7. This is also present on the left at C7 to lesser extent. No fractur e plane is apparent. Vertebral bodies maintain normal height, alignment, and bone marrow signal inten sity with the exception of a T1 hypointense, T2 hyperintense lesion in C7 along the inferior endplate . This is indeterminate. Diffuse intervertebral disc desiccation with moderate height loss at C5-6 an d C6-7. Additional multilevel degenerative changes further detail below: C2-3: No significant neural foraminal or spinal canal narrowing. C3-4: Disc osteophyte complex and uncovertebral hypertrophy results in moderate effacement of the marlyn tral thecal sac and mild to moderate bilateral neural foraminal narrowing. C4-5: Prominent disc osteophyte complex and uncovertebral hypertrophy results in moderate to severe e ffacement of the ventral thecal sac with trace residual CSF an overall flattening of the spinal cord. Moderate to severe right and moderate left neural foraminal narrowing. C5-6: Disc osteophyte complex and uncovertebral hypertrophy results in moderate effacement of the marlyn tral thecal sac with trace residual CSF and significant contouring of the spinal cord greater along t he left anterior aspect. Moderate to severe right and moderate left neural foraminal narrowing. C6-7: Disc osteophyte complex moderately effaces the ventral thecal sac. Minimal contouring of the sp inal cord anteriorly. Mild bilateral neural foraminal narrowing, left greater than right. C7-T1: Disc osteophyte complex mildly effaces the ventral thecal sac. Moderate bilateral neural eda inal narrowing, right greater than left. Cervical spinal cord maintains normal morphology and signal intensity apart from flattening and conto uring as detailed above. No evidence of spinal cord edema or myelomalacia. No paraspinal muscle edema . No gross evidence of an epidural collection. Remaining visualized soft tissues within normal limits . IMPRESSION: 1. Bony edema at the C6-7 facets, right greater than left is most likely reactive and degenerative i n etiology. No convincing evidence of a fracture at this site. 2. Multilevel degenerative changes with multilevel spinal canal stenosis most severe at C4-5 with sp inal cord flattening. No evidence of spinal cord edema or myelomalacia. Correlate clinically to exclu de spinal cord impingement. 3. Multilevel neural foraminal narrowing as detailed above. This is greatest at C4-5 and C5-6. The report will be called/faxed according to standard departmental protocol. Electronically signed by: Agus Barcenas M.D. 03/05/2019 3:42 PM
[2019-03-05 18:39] LABS: Appearance Urine Cloudy (Clear); Bilirubin Urine Negative (Negative); Blood Urine 3+ (Negative); Color Urine Amber; Glucose Urine UA Negative (Negative); Ketones Urine Negative (Negative); Leukocyte Esterase Urine Negative (Negative); Nitrite Urine Negative (Negative); Protein Urine 2+ (Negative); Specific Gravity Urine 1.015 (1.000-1.030); Urobilinogen Urine Negative (Negative)
[2019-03-05 19:06] LABS: Bacteria Urine Negative (Negative); RBC Urine >30 /hpf (0-4)
--- NOTE | 2019-03-05 19:36 | Hospitalist Progress Note ---
Date of Service March 05, 2019 Assessment & Plan (1) Weakness: Acute on chronic lower extremity weakness but with acute portion causing more like "drop attacks" with upper and lower extremities getting weak. has apparently had intermittent issues with incontinence to urine and ataxia as well MRI brain mildly suggestive of NPH Neuro strongly suspects NPH C-spine MRI with severe degenerative changes and spinal stenosis with some flattening of ventral cord Had an episode on 03/04 that was brief and corresponded to a 20 second period on tele when he had bradycardia into the 40s-thought to perhaps correlate with symptoms but now less likely cardiogenic and more likely neurologic issue -continue tele monitoring -appreciate Cardio consult Appreciate Neuro consult--> recommends Ortho SPine consult to see if C-spine issues contributing to problem -needs outpatient Neurosurgery evaluation for NPH -lowered beta elizabeth dose for bradycardia -PT/OT evals (2) Bradycardia: With slow Afib, rates in to the 40s at times and symptomatic as above Improved slightly today with lowering metoprolol dose -reduced metoprolol to 12.5mg po bid -follow on tele (3) CHF (congestive heart failure): Acute on chronic diastolic CHF ECHO with preserved EF, mod MR, and RSVP>60 With development of peripheral edema, no real dyspnea -Possible edema secondary to nifedipine use LE edema improved today, not hypoxic -proBNP was elevated at 28k on admission CXR with some pulm edema -was given IV lasix x 2 doses, then po lasix x 1 [employer] Consult[employer] rising and now improved, 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 -ok to restart home po lasix 20mg daily -follow daily weights, low Na+ diet, I/Os (4) Elevated troponin: Demand ischemia secondary to CKD stabilized out at 0.1/0.118/0.3/0.68/0.8 Seen by Cardiology-recommends ASA, other current meds -recommends Nuc Stress on Thursday if still here; otherwise can be done as outpt (5) Hypertension: Recent d/c of lisinopril due to elevated K Nifedipine noted to cause LE swelling and was discontinued BPs here at times almost 200 sys still -continue metoprolol at lower dose 12.5mg po bid -added on hydralazine and increased this AM to 25 mg po tid -can give clonidine prn as per Nephro -IV hydralazine as needed -continued management needed (6) Stage 3 chronic kidney disease: Baseline cr is 2.3-2.4, was 2.6 on admission, went up to 2.9 after IV lasix and now down to 2.6 -avoid nephrotoxins -renally dose meds -no need for urgent HD at this time Appreciate Nephrology consultation -follow BMP -ok to restart home lasix (7) Atrial fibrillation: With slow rates in the 40s-50s now up to 50s with lowering metoprolol -continue lower dose of metoprolol 12.5mg po bid and hold for HR<60 continue home Eliquis (8) Chronic sinusitis: Noted on CT and pt with sx, with low grade fevers here and sinus pressure continue on augmentin x 2 weeks Started probiotics (9) Type 2 diabetes mellitus: dc home glipizide while here due to risk of hypoglycemia if becomes NPO A1c is only 5.3%--> could likely decrease dose of Glipizide down to 2.5mg daily (10) Dyslipidemia: continue home statin (11) Edema: Likely related to nifedipine improved after IV lasix (12) Gout: continue uloric from home (13) Anxiety: continue home fluvoxamine (14) Obstructive sleep apnea: mild, does not use CPAP (15) Acute renal insufficiency: [employer] up slightly to 2.8 from 2.6, down to basleine today (16) Anemia: hgb only 10.5, normocytic, 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 Feels he is ready for discharge to home by tomorrow Review of Systems Review of Systems: All systems reviewed & are unremarkable except as noted in HPI & below Physical Exam Constitutional: WD/WN, vitals as above Neck: trachea midline, no thyromegaly Respiratory: normal respiratory effort, lungs clear to auscultation Cardiovascular: Rate/Rhythm: regular rhythm and + bradycardic Heart Sounds: no murmur Extremities: + edema (1+ pitting edema to knees bilat) Gastrointestinal (Abdomen): normal bowel sounds, soft, nontender, no hepatosplenomegaly Musculoskeletal: Extremities: extremities normal to inspection; no cyanosis and no clubbing Skin: no rashes, warm and dry Neurologic: moves all extremities and awake; no focal motor deficits (except 4/5 strength in left great toe dorsiflexion) Speech / Cognition: normal speech and no expressive aphasia Motor/Sensory: no tremor Psychiatric: A+Ox3, euthymic affect Results & Data Vital Signs (Past 12 Hours) Vital Signs Temp Pulse Resp BP BP Pulse Ox 03/05/19 15:18 36.6 C 73 20 109/77 98 03/05/19 12:22 36.7 C 72 20 140/72 98 03/05/19 11:25 140/72 Laboratory Results 03/06/19 03/06/19 03/05/19 Range/Units 07:55 05:48 20:13 Sodium 141 (136-145) mmol/L Potassium 4.1 (3.5-5.1) mmol/L Chloride 108 H (98-107) mmol/L Carbon Dioxide 23 (21-32) mmol/L Anion Gap 10.0 (3-11) BUN 75 H (7-18) mg/dl Creatinine 2.47 H (0.6-1.4) mg/dl Est Cr Clr Drug Dosing 31.4 ml/min Est GFR ( Amer) 28.1 Est GFR (Non-Af Amer) 24.2 BUN/Creatinine Ratio 30.5 H (10-20) Glucose 111 H (70-99) mg/dl POC Glucose 117 H 190 H (70-99) Calcium 8.6 (8.5-10.1) mg/dl Phosphorus 3.7 (2.5-4.9) mg/dl Albumin 2.6 L (3.4-5.0) gm/dl Specimen Hemolysis Urine Color Urine Appearance (Clear) Urine pH (4.5-7.5) Ur Specific [place] (1.000-1.030) Urine Protein (Negative) Urine Glucose (UA) (Negative) Urine Ketones (Negative) Urine Blood (Negative) Urine Nitrite (Negative) Urine Bilirubin (Negative) Urine Urobilinogen (Negative) Ur Leukocyte Esterase (Negative) Urine RBC (0-4) /hpf Urine WBC (0-5) /hpf Ur Epithelial Cells (0-5) /lpf Urine Bacteria (Negative) 03/05/19 03/05/19 03/05/19 Range/Units 18:05 16:43 11:46 Sodium (136-145) mmol/L Potassium (3.5-5.1) mmol/L Chloride (98-107) mmol/L Carbon Dioxide (21-32) mmol/L Anion Gap (3-11) BUN (7-18) mg/dl Creatinine (0.6-1.4) mg/dl Est Cr Clr Drug Dosing ml/min Est GFR ( Amer) Est GFR (Non-Af Amer) BUN/Creatinine Ratio (10-20) Glucose (70-99) mg/dl POC Glucose 171 H 151 H (70-99) Calcium (8.5-10.1) mg/dl Phosphorus (2.5-4.9) mg/dl Albumin (3.4-5.0) gm/dl Specimen Hemolysis Urine Color [place] Urine Appearance Cloudy A (Clear) Urine pH 5.0 (4.5-7.5) Ur Specific [place] 1.015 (1.000-1.030) Urine Protein 2+ H (Negative) Urine Glucose (UA) Negative (Negative) Urine Ketones Negative (Negative) Urine Blood 3+ H (Negative) Urine Nitrite Negative (Negative) Urine Bilirubin Negative (Negative) Urine Urobilinogen Negative (Negative) Ur Leukocyte Esterase Negative (Negative) Urine RBC >30 H (0-4) /hpf Urine WBC 5-10 H (0-5) /hpf Ur Epithelial Cells 5-10 H (0-5) /lpf Urine Bacteria Negative (Negative) Diagnostic Findings MRI Brain and C-spine reviewed PG Care Time/CCT Total # of Minutes Spent Total Time Spent with Patient: Total time spent is greater than 50% in coordination of care (as documented) at patient's floor/unit and/or counseling patient: (1) CHF (congestive heart failure) Heart failure chronicity: unspecified Heart failure type: unspecified Qualified Code(s): I50.9 - Heart failure, unspecified (2) Anemia Anemia type: unspecified type Qualified Code(s): D64.9 - Anemia, unspecified
[2019-03-05] MEDS: GABAPENTIN 100 MG CAP PO SCH (20:36)
[2019-03-05] MEDS: FLUVOXAMINE MALEATE 50 MG TAB PO SCH (20:37)
[2019-03-05] MEDS: ACETAMINOPHEN 325 MG TAB PO SCH (20:38)
[2019-03-06 07:30] LABS: Albumin Level 2.6 gm/dl (3.4-5.0); BUN Creatinine Ratio 30.5 (10-20); Calcium 8.6 mg/dl (8.5-10.1); Creatinine Clr Calc Pharmacy 31.4 ml/min; Est GFR (African American) 28.1; Est GFR (Non-African American) 24.2; Phosphorus 3.7 mg/dl (2.5-4.9); Potassium 4.1 mmol/L (3.5-5.1)
[2019-03-06] MEDS: FUROSEMIDE 20 MG TAB PO SCH (08:01)
[2019-03-06] MEDS: LACTOBACILLUS ACIDOPHILUS (FLORANEX) TAB PO SCH ×4 (08:01→20:25)
[2019-03-06] MEDS: AMOXICILLIN/CLAVULANATE 500 MG TAB PO SCH ×2 (08:01→17:28)
[2019-03-06] MEDS: IPRATROPIUM BROMIDE NASAL SPRAY 0.06% 15ML NAE SCH ×2 (08:01→20:21)
[2019-03-06] MEDS: ASPIRIN 81 MG ECTAB PO SCH (08:02)
[2019-03-06] MEDS: MULTIVITAMIN TAB PO SCH (08:02)
[2019-03-06] MEDS: OMEGA-3 (PURIFIED FISH OIL) 1 GM CAP PO SCH (08:02)
[2019-03-06] MEDS: PRAVASTATIN SOD 10 MG TAB PO SCH (08:02)
[2019-03-06] MEDS: FEBUXOSTAT 40 MG TABLET PO SCH (08:02)
[2019-03-06] MEDS: METOPROLOL TARTRATE 25 MG TAB PO SCH ×2 (08:02→20:22)
[2019-03-06] MEDS: ASCORBIC ACID 500 MG TAB PO SCH (08:02)
[2019-03-06] MEDS: CHOLECALCIFEROL 1,000 UNITS TAB PO SCH (08:03)
[2019-03-06] MEDS: ACETAMINOPHEN 500 MG TAB PO SCH (08:03)
[2019-03-06] MEDS: APIXABAN 5 MG TABLET PO SCH ×2 (08:03→20:25)
[2019-03-06] MEDS: INSULIN ASPART 100 UNITS/ML 3 ML PEN SC SCH ×4 (08:35→20:26)
[2019-03-06 09:47] LABS: Albumin Level 2.6 gm/dl (3.4-5.0); Total Protein 6.5 gm/dl (6.4-8.2)
--- NOTE | 2019-03-06 09:57 | Neurology Progress Note ---
Date of Service March 06, 2019 Assessment & Plan (1) NPH (normal pressure hydrocephalus): I suspect this patient has normal pressure hydrocephalus. He has a magnetic/apractic gait pattern that has been chronic and progressive. He has associated urinary incontinence and may be developing a mild subcortical dementia as well (subjective report and observation by spouse) although his cognitive performance seems relatively intact with bedside evaluation. His brain MRI does reveal ventriculomegaly that I think is out of proportion to the observed degree of global atrophy. Furthermore, the degree of ventricular enlargement has been progressive compared with a CT of the head done in 2010. I would like him to have a neurosurgical consultation for consideration of a lumbar drain as he may be a good candidate for a CORRUGATOR MACHINE OPERATOR shunt. As before, I do not see any signs of Parkinson's disease. 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 He does not have any examination findings suggestive of myelopathy and I do not think his degree of cervical spinal stenosis adequately explains his clinical picture. As described previously, he does have examination findings consistent with a sensory ataxia probably related to a diabetic polyneuropathy. However, his blood glucose has been well controlled recently and I do not have any further specific intervention to suggest for his peripheral neuropathy. I would suggest an outpatient EMG of the lower limbs to more objectively evaluate this issue, however. No further immediate recommendations. Subjective Follow-up for gait dysfunction The patient is a 78-year-old male with a history of chronic, progressive gait dysfunction that began insidiously several years ago. He is developed a significant magnetic/apractic gait pattern and has associated urinary incontinence and perhaps some difficulty with short-term memory and cognitive functioning, corroborated by his spouse as well. After my initial assessment of him yesterday I had some concern for possible normal pressure hydrocephalus based on the appearance of his most recent CT of the head, especially when compared with the previous CT of the head done in 2010 which revealed a moderate degree of progressive ventriculomegaly. The patient has completed the requested follow-up brain MRI which does reveal findings suggestive of normal pressure hydrocephalus. He does have some mild age-related atrophy and chronic small vessel ischemic change as well. A cervical spine MRI was also completed which reveals multilevel degenerative change/central canal spinal stenosis, most significant at C4-5 but without associated spinal cord edema or myelomalacia. I reviewed the images as well as the radiologist interpretation of these tests. And discussed his case and MRI findings yesterday with Dr. Dumas as well. The patient does not report any significant change in his gait or other reported symptoms as above. Review of Systems Constitutional: no fever Eyes: no blind spots and no diplopia Neurologic: as per Subjective / HPI and + gait abnormality; no tremor(s) and no headache(s) Physical Exam Physical Exam: The patient is a well-developed, well-nourished elderly male. He is alert and fully oriented. Recent and remote memory intact. Attention and concentration normal. Patient exhibits a normal spontaneous speech pattern as well as an age-appropriate fund of knowledge. Visual mckeon full to confrontation. Visual acuity normal. Pupils equal round reactive to light and accommodation. Eye movements normal. There is no facial droop or weakness. Patient exhibits normal muscle strength and tone for all 4 limbs. No abnormal movements observed. Please see yesterday's examination for a description of this patient's gait pattern. Results & Data Vital Signs (Past 12 Hours) Vital Signs Temp Pulse Pulse Resp BP BP Pulse Ox 03/06/19 08:38 36.5 C 65 18 195/78 H 192/78 H 99 03/06/19 08:00 55 L 03/06/19 03:47 36.8 C 65 18 177/78 H 97 03/05/19 23:48 37.7 C H 59 L 18 189/81 H 99 Diagnostic Findings MRI of the brain and cervical spine were reviewed and are as described in the subjective section of today's note. I reviewed the images as well as the radiologist interpretation of these tests.
[2019-03-06] MEDS: AMLODIPINE BESYLATE 5 MG TAB PO SCH (12:29)
--- NOTE | 2019-03-06 13:08 | Nephrology Progress Note ---
Date of Service March 06, 2019 Assessment & Plan (1) Acute renal insufficiency: Baseline creatinine approximately 2.3 mg/dL. Creatinine continues to trend toward baseline. CKD attributed to predominantly microvascular disease. Patient was found to have evidence of congestive heart failure on admission. CXR showing early signs of pulmonary vascular congestion and mild interstitial edema. Symptoms however were atypical for congestive heart failure. Furosemide has been provided to encourage some diuresis. TTE demonstrated mild diastolic dysfunction, no wall motion abnormalities and no significant evidence of valvular heart disease. BP has been accelerated and findings of renal dysfunction, slightly elevated troponin, abnormality of LFTS and CXR findings may be related. Ultimately, controlling accelerated BP readings remains a major goal of care. The patient and his expressed understanding in this regard. Atrial fibrillation with bradycardia persists. Tyler is having balance and gait dysfunction and is a high fall risk. Special consideration certainly needs to be given regarding choice of antihypertensive therapy. BP seemed to be reasonably well controlled with hydralazine 25 mg TID and furosemide 20 mg daily yesterday. But today, BP remains notably labile. It certainly seems that, despite prior LE edema associated with nifedipine, a dihydropyridine CCB would be an excellent choice of medication. This may help with some of the labile BP readings. Today, we will try to transition to amlodipine 2.5 mg daily. This is what Tyler's primary product ambassador had suggested prior to admission as well. Tyler is agreeable. Amlodipine is obviously not a fast acting or ideal medication for acute accelerated readings and intermittent hydralazine can continue to be provided as needed while the medication is adjusted. His volume status certainly appears euvolemic. I would continue 20 mg PO furosemide daily to encourage an even to slightly negative fluid balance. Twice daily dosing for hypertension may be considered in the future depending on urine symptoms. (2) Stage 3 chronic kidney disease: Follows with Dr. Carney as an outpatient. Urine findings during admission have demonstrated new proteinuria and microscopic hematuria. Clinical presentation is not consistent with acute RPGN. Serum albumin is lower than admission, BP is accelerated, evidence of fluid retention is new, and anemia slightly worse. Findings are not profound but to complete an evaluation for possible underlying glomerular pathology, a 24 hour urine collection for protein and PEP has been requested. Tyler acknowledged that this could be completed as an outpatient if needed. (3) Hypertension: RONALD/ARB avoided due to elevated creatinine and history of DAVEY. Nifedipine noted to have resulted in LE swelling and possibly CHF exacerbation, last dose was 03/01. Hydralazine provided in addition to metoprolol and furosemide. Will try to transition to amlodipine today, as described above. Renal artery duplex was non-diagnostic. The kidneys are normal in size, left slightly smaller than right. Velocities in the right were normal. Renal veins are patent. (4) CHF (congestive heart failure): Clinically appears to be improving. TTE consistent with possibly some diastolic CHF. Findings possibly related to malignant hypertension. Cardiology consultation reviewed. Possible stress next week. (5) Atrial fibrillation: Anticoagulated with Eliquis. Remains on tele. Metoprolol has been reduced due to low heart rate. This appears to be well tolerated at this time. (6) Weakness: Neuro consult reviewed. MRI head neck demonstrated findings consistent w ith possible NPH as well as foraminal narrowing, facet disease and other degenerative changes in the mid to lower cervical spine. Diagnostic LP to be arranged post discharge. (7) Microscopic hematuria: Gloria urine documented with UA yesterday. No bacteriuria or signs or symptoms or cystitis or prostatitis otherwise. Has been maintained on Augmentin. I suspect this was related to Toribio catheter and anticoagulation. Clinically not consitent with acute RPGN. Appropriate monitoring will be necessary as well as outpatient follow up. May require urology evaluation in the outpatient setting if persistent. 2.8 cm cyst in right kidney and 1.9 cm cyst in left kidney noted during duplex scan are felt to be simple in appearance. Subjective No acute events overnight. Neurology consultation reviewed. Concern for NPH noted. The patient and his are happy to possibly have some answers. They are hopeful that discharge home can be arranged soon. Tyler remains unsteady on his feet and risk of falls remains a concern. BP demonstrated good improvement yesterday but was again accelerated this morning. He continues to deny any symptoms of accelerated hypertension. Toribio has been removed. Tyler denies any urinary symptoms. He denies gross hematuria. Review of Systems Review of Systems: All systems reviewed & are unremarkable except as noted in HPI & below Physical Exam Constitutional: well developed and + well hydrated; no acute distress and not edematous Eyes: no scleral abnormality and no corneal abnormality ENMT: Mouth: no oral mucosal abnormality and oral mucous membranes not dry Neck: normal visual inspection and trachea midline Respiratory: normal respiratory effort Auscultation: lungs clear to auscultation bilaterally Cardiovascular: Heart Sounds: normal S1 and normal S2; no murmur Vessels: no JVD Extremities: + edema (trace to 1+ lower extremity edema extending to above the ankles) Gastrointestinal (Abdomen): Percussion/Palpation: abdomen soft; abdomen nontender Musculoskeletal: Extremities: no cyanosis and no clubbing Skin: normal turgor Neurologic: Motor/Sensory: no tremor and no asterixis Psychiatric: Orientation: alert and oriented x 3 Results & Data Vital Signs (Past 12 Hours) Vital Signs Temp Pulse Pulse Resp BP BP Pulse Ox 03/06/19 11:40 36.6 C 58 L 20 157/65 H 98 03/06/19 08:38 36.5 C 65 18 195/78 H 192/78 H 99 03/06/19 08:00 55 L 03/06/19 03:47 36.8 C 65 18 177/78 H 97 PG Care Time/CCT Total # of Minutes Spent Total Time Spent with Patient: Total time spent is greater than 50% in coordination of care (as documented) at patient's floor/unit and/or counseling patient: (1) CHF (congestive heart failure) Heart failure chronicity: unspecified Heart failure type: unspecified Qualified Code(s): I50.9 - Heart failure, unspecified
--- NOTE | 2019-03-06 14:53 | Hospitalist Progress Note ---
Date of Service March 06, 2019 Assessment & Plan (1) Weakness: Acute on chronic lower extremity weakness but with acute portion causing more like "drop attacks" with upper and lower extremities getting weak. Has had intermittent issues with incontinence to urine and ataxia as well, progr essing over many months MRI brain mildly suggestive of NPH Neuro strongly suspects NPH C-spine MRI with severe degenerative changes and spinal stenosis with some flattening of ventral cord Had an episode on 03/04 here that was brief and corresponded to a 20 second period on tele when he had bradycardia into the 40s-thought to perhaps correlate with symptoms but now less likely cardiogenic and more likely neurologic issue -continue tele monitoring -appreciate Cardio consult-see below Appreciate Neuro consult--> recommends Ortho Spine consult to see if C-spine issues contributing to problem, but no myelopathic signs -needs outpatient Neurosurgery evaluation for NPH at [place] -lowered beta eliazbeth dose for bradycardia -PT/OT evals recommending home with (2) NPH (normal pressure hydrocephalus): NPH suspected as cause of gait dysfunction annd weakness, as above -needs NS eval (3) Bradycardia: With slow Afib, rates in to the 40s at times and symptomatic as above upon admission Improved today with rates now mostly in the 60s since lowering metoprolol dose -continue reduced metoprolol dose of 12.5mg po bid -follow on tele (4) CHF (congestive heart failure): Acute HFpEF treated with IV Lasix ECHO with preserved EF, mod MR, and RSVP>60 With development of peripheral edema, no real dyspnea, possibly secondary to nifedipine use LE edema improved today, not hypoxic proBNP was elevated at 28k on admission CXR with some pulm edema -was given IV lasix x 2 doses, then po lasix x 1 Toby Maker francisca initially and now improved down to 2.47 -continue home po lasix 20mg daily -follow daily weights, low Na+ diet, I/Os (5) Elevated troponin: Most likely Myocardial Demand ischemia secondary to CKD Troponins stabilized at 0.1/0.118/0.3/0.68/0.8 Seen by Cardiology-recommends starting ASA, other current meds -recommends Nuc Stress on Thursday-ordered NM SPECT Lexiscan -NPO after midnight (6) Hypertension: Recent d/c of lisinopril as an otpt due to elevated K+ Nifedipine noted to cause LE swelling and was discontinued BPs here still with accelerated HTN, worse in the AM in the 190s systolic Renal Doppler nondiagnostic due to obscuration of the aorta -continue metoprolol at lower dose 12.5mg po bid -added on hydralazine 25mg tid but not good halfway solution -will start amlodipine 2.5mg po qAM today -hold po hydralazine and make it tid prn SBP>180 -can give clonidine prn as per Nephro -IV hydralazine as needed -continued management needed (7) Stage 3 chronic kidney disease: Baseline cr is 2.3-2.4, was 2.6 on admission, went up to 2.9 after IV lasix and now down to 2.4 -avoid nephrotoxins -renally dose meds -no need for urgent HD at this time Appreciate Nephrology consultation -follow BMP -continue home lasix (8) Atrial fibrillation: With slow rates in the 40s-50s now up to 60s with lowering metoprolol -continue lower dose of metoprolol 12.5mg po bid and hold for HR<60 continue home Eliquis (9) Chronic sinusitis: Noted on CT and pt with sx, with low grade fevers here and sinus pressure continue on augmentin x 2 weeks Started probiotics (10) Type 2 diabetes mellitus: dc home glipizide while here due to risk of hypoglycemia if becomes NPO A1c is only 5.3%--> could likely decrease dose of Glipizide down to 2.5mg daily upon discharge or stop completely (11) Dyslipidemia: continue home statin (12) Edema: Likely related to nifedipine improved after IV lasix (13) Gout: continue uloric from home (14) Anxiety: continue home fluvoxamine (15) Obstructive sleep apnea: mild, does not use CPAP (16) Acute renal insufficiency: Toby Maker up slightly to 2.8 from 2.6, down to baseline today (17) Anemia: hgb only 10.5, normocytic, likely anemia of chronic renal disease Follow CBC (18) Mitral regurgitation: moderate on ECHO -follow as outpt (19) Microscopic hematuria: RBCs in urine but also could be from Toribio trauma But with accelerated HTN, proteinuria, Nephro wants to check 24 hr urine protein and UPEP -microscopic hematuria needs continued follow up after discharge (20) Neurologic gait dysfunction: 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 Possible dc to home tomorrow Subjective Pt says he is doing very well today, feeling stronger. Ambulating to the bathroom with assistance. He and his are encouraged to get some answers regarding his diagnoses here. and daughter encouraged pt to stay as they care concerned about him getting all the needed testing in prior to discharge. His BPs also continue to be quite high especially in the mornings, but have come down throughout the day. I discussed his case at length today with Nephrology Pt is in the middle of collecting a 24 hr urine protein Tele with Afib with rates in the 50s and mostly 60s. Review of Systems Review of Systems: All systems reviewed & are unremarkable except as noted in HPI & below Physical Exam Constitutional: WD/WN, vitals as above Eyes: EOM intact bilaterally Neck: trachea midline, no thyromegaly Respiratory: normal respiratory effort, lungs clear to auscultation Cardiovascular: Rate/Rhythm: regular rate and + irregularly irregular Heart Sounds: no murmur Extremities: + edema (1+ pitting edema to knees bilat) Gastrointestinal (Abdomen): normal bowel sounds, soft, nontender, no hepatosplenomegaly Musculoskeletal: Extremities: no cyanosis and no clubbing Skin: no rashes, warm and dry Neurologic: awake Speech / Cognition: normal speech and no expressive aphasia Motor/Sensory: no tremor Psychiatric: A+Ox3, euthymic affect Results & Data Vital Signs (Past 12 Hours) Vital Signs Temp Pulse Pulse Resp BP BP Pulse Ox 03/06/19 11:40 36.6 C 58 L 20 157/65 H 98 03/06/19 08:38 36.5 C 65 18 195/78 H 192/78 H 99 03/06/19 08:00 55 L 03/06/19 03:47 36.8 C 65 18 177/78 H 97 Laboratory Results 03/06/19 03/06/19 03/06/19 Range/Units 20:22 16:39 11:41 Sodium (136-145) mmol/L Potassium (3.5-5.1) mmol/L Chloride (98-107) mmol/L Carbon Dioxide (21-32) mmol/L Anion Gap (3-11) BUN (7-18) mg/dl Creatinine (0.6-1.4) mg/dl Est Cr Clr Drug Dosing ml/min Est GFR ( Amer) Est GFR (Non-Af Amer) BUN/Creatinine Ratio (10-20) Glucose (70-99) mg/dl POC Glucose 146 H 141 H 160 H (70-99) Calcium (8.5-10.1) mg/dl Phosphorus (2.5-4.9) mg/dl Total Bilirubin (0.2-1) mg/dl Direct Bilirubin (0-0.2) mg/dl AST (15-37) U/L ALT (12-78) U/L Alkaline Phosphatase (45-117) U/L Total Protein (6.4-8.2) gm/dl Albumin (3.4-5.0) gm/dl Specimen Hemolysis 03/06/19 03/06/19 03/06/19 Range/Units 09:55 07:55 05:48 Sodium (136-145) mmol/L Potassium (3.5-5.1) mmol/L Chloride (98-107) mmol/L Carbon Dioxide (21-32) mmol/L Anion Gap (3-11) BUN (7-18) mg/dl Creatinine (0.6-1.4) mg/dl Est Cr Clr Drug Dosing ml/min Est GFR ( Amer) Est GFR (Non-Af Amer) BUN/Creatinine Ratio (-20) Glucose (70-99) mg/dl POC Glucose 117 H (70-99) Calcium (8.5-10.1) mg/dl Phosphorus (2.5-4.9) mg/dl Total Bilirubin 1.0 (0.2-1) mg/dl Direct Bilirubin 0.4 H (0-0.2) mg/dl AST 90 H (15-37) U/L ALT 99 H (12-78) U/L Alkaline Phosphatase 103 (45-117) U/L Total Protein 6.5 (6.4-8.2) gm/dl Albumin 2.6 L (3.4-5.0) gm/dl Specimen Hemolysis 03/06/19 Range/Units 05:48 Sodium 141 (136-145) mmol/L Potassium 4.1 (3.5-5.1) mmol/L Chloride 108 H (98-107) mmol/L Carbon Dioxide 23 (21-32) mmol/L Anion Gap 10.0 (3-11) BUN 75 H (7-18) mg/dl Creatinine 2.47 H (0.6-1.4) mg/dl Est Cr Clr Drug Dosing 31.4 ml/min Est GFR ( Amer) 28.1 Est GFR (Non-Af Amer) 24.2 BUN/Creatinine Ratio 30.5 H (10-20) Glucose 111 H (70-99) mg/dl POC Glucose (70-99) Calcium 8.6 (8.5-10.1) mg/dl Phosphorus 3.7 (2.5-4.9) mg/dl Total Bilirubin (0.2-1) mg/dl Direct Bilirubin (0-0.2) mg/dl AST (15-37) U/L ALT (12-78) U/L Alkaline Phosphatase (45-117) U/L Total Protein (6.4-8.2) gm/dl Albumin 2.6 L (3.4-5.0) gm/dl Specimen Hemolysis PG Care Time/CCT Total # of Minutes Spent Total Time Spent with Patient: Total time spent is greater than 50% in coordination of care (as documented) at patient's floor/unit and/or counseling patient: (1) CHF (congestive heart failure) Heart failure chronicity: unspecified Heart failure type: unspecified Qualified Code(s): I50.9 - Heart failure, unspecified (2) Anemia Anemia type: unspecified type Qualified Code(s): D64.9 - Anemia, unspecified
[2019-03-06] MEDS: GABAPENTIN 100 MG CAP PO SCH (20:23)
[2019-03-06] MEDS: FLUVOXAMINE MALEATE 50 MG TAB PO SCH (20:24)
[2019-03-06] MEDS: ACETAMINOPHEN 325 MG TAB PO SCH (20:25)
[2019-03-07 07:31] LABS: INR 1.3 (0.9-1.1); Prothrombin Time 12.8 Seconds (9.0-12.0)
[2019-03-07 07:55] LABS: Albumin Level 2.7 gm/dl (3.4-5.0); BUN Creatinine Ratio 28.9 (10-20); Bilirubin Direct 0.2 mg/dl (0-0.2); Bilirubin,Total 0.8 mg/dl (0.2-1); Creatinine Clr Calc Pharmacy 29.3 ml/min; Est GFR (African American) 25.8; Est GFR (Non-African American) 22.2; Phosphorus 3.8 mg/dl (2.5-4.9); Potassium 3.9 mmol/L (3.5-5.1); Total Protein 6.2 gm/dl (6.4-8.2)
[2019-03-07] MEDS: IPRATROPIUM BROMIDE NASAL SPRAY 0.06% 15ML NAE SCH (08:21)
[2019-03-07] MEDS: PRAVASTATIN SOD 10 MG TAB PO SCH (08:21)
[2019-03-07] MEDS: AMOXICILLIN/CLAVULANATE 500 MG TAB PO SCH (08:21)
[2019-03-07] MEDS: INSULIN ASPART 100 UNITS/ML 3 ML PEN SC SCH ×2 (08:22→12:15)
[2019-03-07] MEDS: CHOLECALCIFEROL 1,000 UNITS TAB PO SCH (08:22)
[2019-03-07] MEDS: LACTOBACILLUS ACIDOPHILUS (FLORANEX) TAB PO SCH ×2 (08:22→12:16)
[2019-03-07] MEDS: METOPROLOL TARTRATE 25 MG TAB PO SCH (08:23)
[2019-03-07] MEDS: ACETAMINOPHEN 500 MG TAB PO SCH (08:23)
[2019-03-07] MEDS: AMLODIPINE BESYLATE 5 MG TAB PO SCH (08:23)
[2019-03-07] MEDS: FUROSEMIDE 20 MG TAB PO SCH (08:23)
[2019-03-07] MEDS: ASPIRIN 81 MG ECTAB PO SCH (08:23)
[2019-03-07] MEDS: APIXABAN 5 MG TABLET PO SCH (08:23)
[2019-03-07] MEDS: ASCORBIC ACID 500 MG TAB PO SCH (08:24)
[2019-03-07] MEDS: OMEGA-3 (PURIFIED FISH OIL) 1 GM CAP PO SCH (08:24)
[2019-03-07] MEDS: FEBUXOSTAT 40 MG TABLET PO SCH (08:24)
[2019-03-07] MEDS: MULTIVITAMIN TAB PO SCH (08:24)
--- NOTE | 2019-03-07 10:06 | Cardiology Progress Note ---
Date of Service March 07, 2019 Assessment & Plan (1) Diastolic heart failure: 2. Persistent atrial fibrillation 3. Elevated troponin 4. [id number] nonobstructive coronary artery disease 5. Moderate mitral regurgitation 6. Severe pulmonary hypertension, RV dilation 7. Acute on chronic renal insufficiency 8. Hypertension 9. Anemia/thrombocytopenia 10. LE PAD - LT SFA, tibial disease 11. Gouty arthropathy 12. Ataxia, question NPH Respiratory symptoms improved. Well-perfused with minimal congestion on exam. On home maintenance diuretics. Creatinine minimally elevated Blood pressure still labile. Remains in atrial fibrillation. Well rate controlled. Unfortunately nuclear camera is not working today and unable to do a stress test. Could be done tomorrow if still hospitalized. If not we will schedule as an outpatient. Continue maintenance Lasix 20 mg daily -- Continue Eliquis, ASA 81mg daily, home statin --Continue to titrate up amlodipine, consider restarting p.o. hydralazine until amlodipine effect felt From a cardiac standpoint OK for discharge when medical issues stable. Will continue to follow. Subjective Feeling well today. Denies any chest pain, shortness of breath. Reports still feeling unsteady yesterday, using walker. Feels near baseline though. Review of Systems Review of Systems: All systems reviewed & are unremarkable except as noted in HPI & below Physical Exam Physical Exam: General: Comfortable, no acute distress HEENT: Sclerae anicteric, mucous membranes moist Lungs: Clear to auscultation bilaterally, no rhonchi or wheezes Cardiac: Irregularly irregular Abdomen: Soft, nontender Extremities: Warm, well perfused, no edema. Neuro: Nonfocal Psych: Alert orient x3, normal affect and mood Results & Data Vital Signs (Past 12 Hours) Vital Signs Temp Pulse Resp BP BP Pulse Ox 03/07/19 08:16 61 199/81 H 03/07/19 07:18 97.9 F 65 18 205/75 H 204/90 H 99 03/07/19 03:27 98.2 F 62 19 195/94 H 98 03/06/19 23:33 98.1 F 62 19 154/65 H 97 PG Care Time/CCT Total # of Minutes Spent Total Time Spent with Patient: Total time spent is greater than 50% in coordination of care (as documented) at patient's floor/unit and/or counseling patient:
[2019-03-07 11:32] LABS: Total Protein 24 Hour Urine 546.8 mg/24 Hr (0-149.1); Urine Total Protein 40.5 mg/dl
--- NOTE | 2019-03-07 12:10 | Nephrology Progress Note ---
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 Admitted with generalized aches weakness, difficulty ambulating, poorly-controlled hypertension and acute kidney injury.. Patient was found to have evidence of congestive heart failure on admission. CXR showing early signs of pulmonary vascular congestion and mild interstitial edema. TTE demonstrated mild diastolic dysfunction, no wall motion abnormalities, no evidence of valvular heart disease. BP has been accelerated and findings of renal dysfunction, slightly elevated troponin, abnormality of LFTS and CXR findings may be related. Renal artery Doppler was non-diagnostic. Ultimately, controlling accelerated BP readings remains a major goal of care. The patient and his expressed understanding in this regard. As blood pressure has been running high amlodipine 2.5 mg was started yesterday and continued on low-dose metoprolol and hydralazine. Not on RONALD-inhibitor ARB to year 2 prior hyperkalemia. Atrial fibrillation with bradycardia persists. Urine findings during admission have demonstrated new proteinuria and microscopic hematuria. Clinical presentation is not consistent with acute RPGN. Serum albumin is lower than admission, BP is accelerated, a 24 hour urine collection for protein and PEP has been requested. Evaluated by Neurology and there was concern for NPH and plan to do lumbar puncture as an outpatient Blood pressure remained elevated, clinically no sign of volume overload. --hold Lasix for now, increase amlodipine to 5 mg p.o. daily if blood pressure remained elevated, consider increasing amlodipine to 10 mg daily. --patient is eager to leave hospital today as he feels like his blood pressure is high because of stress of being in hospital and when he goes home he will feel better. Explained the risk of stroke and acute coronary event with systolic blood pressure 180s, 190s and there is some suggestion of slow worsening of renal function. However patient acknowledges the risks but still wants to be discharge. --if patient ultimately decided to leave, suggest ordering renal panel for tomorrow and the result should before or to add to his primary maintenance aide is Dr. Carney --follow-up with his PCP in next few days and follow up with nephrology in 1-2 weeks will follow (2) Stage 3 chronic kidney disease: F (3) Hypertension: (4) Weakness: Susu Scott was seen and examined in his room this morning with his Agus at bedside. He denies any symptom of headache, visual changes, chest pain, shortness of Breath or flank pain. Blood pressure continues to be elevated but seems to be slightly improving. Renal function has been slightly worsening, BUN up to 77 and creatinine 2.7. Review of Systems Review of Systems: All systems reviewed & are unremarkable except as noted in HPI & below Physical Exam Constitutional: well developed and well nourished; no acute distress Respiratory: normal respiratory effort, lungs clear to auscultation Cardiovascular: RRR, no murmur, no edema Neurologic: moves all extremities and awake; not confused Psychiatric: A+Ox3, euthymic affect Results & Data Vital Signs (Past 12 Hours) Vital Signs Temp Pulse Resp BP BP Pulse Ox 03/07/19 11:24 37 C 53 L 20 166/74 H 98 03/07/19 08:16 61 199/81 H 03/07/19 07:18 36.6 C 65 18 205/75 H 204/90 H 99 03/07/19 03:27 36.8 C 62 19 195/94 H 98
[2019-03-07] MEDS ORDERED: AMLODIPINE BESYLATE 5 MG TAB PO ONE (13:21)
--- NOTE | 2019-03-07 13:27 | Discharge Summary ---
Date of Service March 07, 2019 Admission HPI Per Admitting Provider 78 y/o M c/o weakness. Pt states that he has been going to PT at [facility] for issues with b/l hip weakness and had been doing quite well. He had progressed from a walker to using a cane only. He left PT on Thursday and felt that he had a good session, however that night he became notable weak and was having difficulty walking and standing. Thursday morning he tried to get out of bed and more slid to the floor. He was SOB when he woke up and had some mild SOB with ambulation. This AM he had slid out of bed and walked to the bathroom with some difficulty. He was brushing his teeth when he felt that he could no longer stand. He tried to hold himself up using the sink, but was too weak to do this as well. He was able to move to put his back against the wall and slide to the floor. He did not hit his head. Pt states that he had been on lisinopril for his BP, however there was an elevation in his K on routine labs a few weeks ago so this was changed to nifedipine. Since that time, pt has noted increased LE swelling, which was not an issue prior. He called Dr. Carney and this was changed to norvasc yesterday. He has not picked up this prescription yet. Last nifedipine was Thursday. Pt denies hx of LE swelling prior to this. He does take lasix, but has been on this for about 10 yrs. It was prescribed for BP control. Pt denies fever, chest pain, abd pain, n/v/c/d, LE pain. Pt states he has a chronic "stuffy nose" that he uses Atrovent spray for. He also uses a sinus rinse. This helps, but if he misses doses of the nasal spray, his sx return. Principal Diagnosis Generalized weakness, suspected normal pressure hydrocephalus Discharge Exam Constitutional WD/WN, vitals as above Eyes PERRL, conjunctivae normal, anicteric sclerae ENMT external ear and nose normal, oropharynx normal Neck trachea midline, no thyromegaly Respiratory normal respiratory effort, lungs clear to auscultation Cardiovascular RRR, no murmur, no edema Gastrointestinal (Abdomen) normal bowel sounds, soft, nontender, no hepatosplenomegaly Musculoskeletal Head/Neck/Chest: normocephalic and head atraumatic Extremities: extremities normal to inspection and + abnormal strength (generalized weakness); full ROM of extremities and no joint enlargement Skin no rashes, warm and dry Neurologic patellar DTR's 2+ bilat, sensation intact and PERRL, EOMI, accommodation nl, no face palsy, no dysarthria Psychiatric A+Ox3, euthymic affect Lymphatic no cervical or axillary lymphadenopathy Discharge Data Allergies Allergy/AdvReac Type Severity Reaction Status Date / Time latex Allergy Unknown LOCAL SKIN Verified 03/03/19 08:42 IRRITATION lisinopril Allergy Unknown hyperkalemi Verified 03/03/19 08:42 a sulfamethoxazole AdvReac increases Verified 03/03/19 08:42 [From Bactrim] potassium trimethoprim [From Bactrim] AdvReac increases Verified 03/03/19 08:42 potassium Consultations 03/04/19 09:46 Consult Nephrology Routine 03/04/19 09:51 Consult Cardiology Routine 03/04/19 19:10 Consult Neurology Routine 03/05/19 17:45 Consult Orthopedic Surgery Routine Ordered Studies 03/03/19 08:36 CT head/brain wo con Stat 03/04/19 11:10 US duplex renal artery Routine 03/05/19 11:00 MR brain wo con Routine MR cervical spine wo con Routine Hospital Course (1) Weakness: Acute on chronic lower extremity weakness but with acute portion causing more like "drop attacks" with upper and lower extremities getting weak. Has had intermittent issues with incontinence to urine and ataxia as well, progressing over many months MRI brain mildly suggestive of NPH Neuro strongly suspects NPH C-spine MRI with severe degenerative changes and spinal stenosis with some flattening of ventral cord Had an episode on 03/04 here that was brief and corresponded to a 20 second period on tele when he had bradycardia into the 40s-thought to perhaps correlate with symptoms but now less likely cardiogenic and more likely neurologic issue -continue tele monitoring -appreciate Cardio consult-see below Appreciate Neuro consult--> recommends Ortho Spine consult to see if C-spine issues contributing to problem, but no myelopathic signs -needs outpatient Neurosurgery evaluation for NPH at [place] -lowered beta elizabeth dose for bradycardia -PT/OT evals recommending home with HH (2) NPH (normal pressure hydrocephalus): NPH suspected as cause of gait dysfunction annd weakness, as above -needs NS eval (3) Bradycardia: With slow Afib, rates in to the 40s at times and symptomatic as above upon admission Improved today with rates now mostly in the 60s since lowering metoprolol dose -continue reduced metoprolol dose of 12.5mg po bid -follow on tele (4) CHF (congestive heart failure): Acute HFpEF treated with IV Lasix ECHO with preserved EF, mod MR, and RSVP>60 With development of peripheral edema, no real dyspnea, possibly secondary to nifedipine use LE edema improved today, not hypoxic proBNP was elevated at 28k on admission CXR with some pulm edema -was given IV lasix x 2 doses, then po lasix x 1 Tableau Architect francisca initially and now improved down to 2.47 -HOLD home po lasix 20mg daily, get BMP tomorrow to recheck Cr -follow daily weights, low Na+ diet, I/Os will follow closely with the heart failure clinic (5) Elevated troponin: Most likely Myocardial Demand ischemia secondary to CKD Troponins stabilized at 0.1/0.118/0.3/0.68/0.8 Seen by Cardiology-recommends starting ASA, other current meds -recommends Nuc Stress on Thursday-ordered NM SPECT Lexiscan machine for Lexiscan test not working, patient will be d/c to home and follow up for stress test outpatient (6) Hypertension: Recent d/c of lisinopril as an otpt due to elevated K+ Nifedipine noted to cause LE swelling and was discontinued BPs here still with accelerated HTN, worse in the AM in the 190s systolic Renal Doppler nondiagnostic due to obscuration of the aorta -continue metoprolol at lower dose 12.5mg po bid -added on hydralazine 25mg tid but not good fdc solution -will start amlodipine 2.5mg po qAM today -hold po hydralazine and make it tid prn SBP>180 -can give clonidine prn as per Nephro -IV hydralazine as needed -continued management needed (7) Stage 3 chronic kidney disease: Baseline cr is 2.3-2.4, was 2.6 on admission, went up to 2.9 after IV lasix and now down to 2.4 -avoid nephrotoxins -renally dose meds -no need for urgent HD at this time Appreciate Nephrology consultation -follow BMP - hold Lasix on discharge, repeat BMP the day after discharge, results to Dr. Carney (8) Atrial fibrillation: With slow rates in the 40s-50s now up to 60s with lowering metoprolol -continue lower dose of metoprolol 12.5mg po bid and hold for HR<60 continue home Eliquis (9) Chronic sinusitis: Noted on CT and pt with sx, with low grade fevers here and sinus pressure continue on augmentin x 2 weeks Started probiotics (10) Type 2 diabetes mellitus: dc home glipizide while here due to risk of hypoglycemia if becomes NPO A1c is only 5.3%--> could likely decrease dose of Glipizide down to 2.5mg daily upon discharge or stop completely (11) Dyslipidemia: continue home statin (12) Edema: Likely related to nifedipine improved after IV lasix (13) Gout: continue uloric from home (14) Anxiety: continue home fluvoxamine (15) Obstructive sleep apnea: mild, does not use CPAP (16) Acute renal insufficiency: Tableau Architect up slightly to 2.8 from 2.6, down to baseline today (17) Anemia: hgb only 10.5, normocytic, likely anemia of chronic renal disease Follow CBC (18) Mitral regurgitation: moderate on ECHO -follow as outpt (19) Microscopic hematuria: RBCs in urine but also could be from Toribio trauma But with accelerated HTN, proteinuria, Nephro wants to check 24 hr urine protein and UPEP -microscopic hematuria needs continued follow up after discharge (20) Neurologic gait dysfunction: 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 Possible dc to home tomorrow Total Time Total Time Spent Total Time Spent (In Minutes): 37 minutes Total Time Includes: Examination of the Patient, Discharge Planning, Medication Reconciliation, Communication With Other Providers (cardiology, nephrology, CHF clinic provider) and Other (discussion with family) Discharge Plan Discharge Items Patient Disposition: Home - Self-Care Reason For Visit: CHF EXACERBATION Discharge Diagnosis: Weakness due to possible normal pressure hydrocephalus Hypertension Acute diastolic heart failure, resolved chronic atrial fibrillation Condition on Discharge: Good Goals: - follow up with neurosurgery for their recommendations on possible NPH - follow up with Dr. Bass to rescheduled nuclear medicine stress test - follow up with Dr. Stephenson this week for blood pressure check Activity: Resume your previous activity Non-emergency contact: Primary Care Provider and Senior Ux Developer Call non-emergency contact if: you have any medication questions and your symptoms worsen Follow-up/Referrals: [facility] Neurosurgery [Other] (Please, follow up at [facility] Neurosurgery Office. *Your records and images are being sent to their office. When they have reviewed your information, a nurse from this office will call you with appointment details. The office is located at [address] in [place]. The office phone number is [phone].) Jovany Stephenson MD [Primary Care Provider] - 03/15/19 10:00 am (Please, follow up at Dr. Stephenson's office with his assistant loan processor, Belkis Roman PA-C, on ThursdayMarch 15 at 10:00 am. *If you need to change this appointment, call their office at [phone].) Diet: Carb Consistent or DM2 and Heart Healthy Addtl Attending Provider Instructions: Medications: - NORVASC: continue taking for blood pressure control, dose increased to 5mg sadi ly, start tomorrow morning as you received full dose today - METOPROLOL: dose reduced to 12.5mg twice a day due to some slow heart rates - ASPIRIN: 81mg daily, recommended by cardiology - AUGMENTIN: antibiotic to take twice a day for sinusitis - GLIPIZIDE: given your low HbA1c I would recommend to continue to hold/stop this medication, manage diabetes with low carbohydrate diet, follow up with Dr. Stephenson LASIX: hold for time being per nephrology, follow up with Dr. Carney Weakness and unsteadiness therapy evals state that you can go home with home therapy evaluated by neurology, they suspect possible normal pressure hydrocephalus based on symptoms and MRI brain findings recommend follow up with neurosurgery will send images and information to Neurosurgery at [place], they will review and contact you for appointment Elevated troponin (heart enzyme) Dr. Bass okay with you going home and getting outpatient nuclear stress test call their office to arrange at your convenience, not emergent Hypertension quite high at times, no symptoms some response to Norvasc 2.5mg, will increase to 5mg daily continue on Lasix and metoprolol Sinusitis: will treat with Amoxicillin for 12 more days this is a twice a day medication, next dose due this evening Chronic kidney disease creatinine up slightly, 2.[address] Appiah recommends holding Lasix for now, get labs tomorrow with results to Dr. Carney Pending Studies at Discharge: No Stand-Alone Forms: My [facility] Medications and DC Order Prescriptions: New aspirin [Ecotrin Low Strength] 81 mg Tablet,Delayed Release (Dr/Ec) 81 mg PO QAM 30 Days Qty: 30 RF: 0 amoxicillin-pot clavulanate 500-125 mg Tablet 1 tab PO BIDM 12 Days Qty: 24 RF: 0 metoprolol tartrate 25 mg Tablet 12.5 mg PO BID 30 Days Qty: 30 RF: 0 amlodipine [Norvasc] 5 mg tablet 5 mg PO DAILY Qty: 90 RF: 1 Continued cholecalciferol (vitamin D3) 1,000 unit capsule 1,000 units PO QAM RF: 0 Cholest Off 450 mg tablet 900 mg PO QAM RF: 0 Fish Oil 120 mg-180 mg- 60 mg-1,200 mg capsule,delayed release(DR/EC) 2 cap PO QAM RF: 0 multivitamin Tablet 1 tab PO QAM RF: 0 ascorbic acid (vitamin C) 1,000 mg Tablet 1,000 mg PO QAM RF: 0 ranitidine HCl 300 mg tablet 300 mg PO QAM RF: 0 garlic 1,000 mg Capsule 1,000 mg PO QAM RF: 0 pravastatin 10 mg tablet 10 mg PO QAM RF: 0 gabapentin 100 mg capsule 100 mg PO HS RF: 0 ipratropium bromide 42 mcg (0.06 %) spray,non-aerosol 2 spray intranasal BID RF: 0 Eliquis 5 mg tablet 5 mg PO BID RF: 0 febuxostat [Uloric] 40 mg Tablet 40 mg PO QAM RF: 0 acetaminophen [Tylenol Arthritis Pain] 650 mg Tablet Extended Release 650 mg PO HS RF: 0 fluvoxamine 100 mg tablet 100 mg PO HS RF: 0 Discontinued glipizide 5 mg tablet extended release 24hr 5 mg PO QAM RF: 0 metoprolol tartrate 25 mg tablet 25 mg PO BID RF: 0 amlodipine 2.5 mg tablet 2.5 mg PO QAM RF: 0 furosemide 20 mg tablet 20 mg PO QAM RF: 0 No Action furosemide 20 mg tablet PO RF: 0 glipizide 5 mg tablet extended release 24hr PO Qty: 90 RF: 0 vitamins A,C,F-bhrk-wqvybd PO RF: 0 Discharge Orders: Discharge Order (Routine); Ordered 03/07/19 Ordered By: Antoine Mcgee Admission Data Admit Date/Time: 03/03/19 11:22 Attending Provider: Antione Mcgee Admit Provider: Ling Garcia Primary Care Provider: Jovany Stephenson Other Providers: Erik Bingham ; Otis Spain ; Sid Patrick ; Jovany Coughlin Other Interventions: Discharge Summary Assessment (RN) Last Done: 03/07/19 13:32 DC Date/Time DO NOT enter until pt leaves facility: 03/07/19 15:18
--- NOTE | 2019-03-07 14:38 | Heart Failure Progress Note ---
Date of Service March 07, 2019 Assessment & Plan (1) Diastolic heart failure: Patient will be enrolled in the [facility] heart failure program. Anticipate close follow up upon discharge as his diuretic is being held. We discussed the importance of consistent daily weights and documenting such. He will notify the CHF team for 2+ lb weight gain overnight or 5+ lb in 1 week, worsening shortness of breath, or swelling. Anticipate outpatient follow up with the heart failure program within 7 days- this will be arranged. He will need BMP/Mag drawn prior to his appointment. He has an order for renal panel tomorrow and will be followed closely by Dr. Carney as well. - Daily standing weights - Low sodium diet - Follow up with HF program within 7 days of discharge - Labs prior to appointment - Call for weight gain or worsening symptoms. Subjective Mr. Haddad was referred to the CHF program for discharge planning by Dr. Dumas. Patient reports he is feeling well today. He denies SOB or edema. He chronically takes 20 mg of Lasix, either 10 mg or 20 mg daily vs every other day depending on his symptoms. His Lasix is currently on hold per nephrology recommendations. He has been struggling with hypertension and was recently started on Amlodipine during this admission. He is scheduled for discharge today. Results & Data Vital Signs (Past 12 Hours) Vital Signs Temp Pulse Resp BP BP Pulse Ox 03/07/19 13:32 98.6 F 53 L 20 199/81 H 166/74 H 98 03/07/19 11:24 98.6 F 53 L 20 166/74 H 98 03/07/19 08:16 61 199/81 H 03/07/19 07:18 97.9 F 65 18 205/75 H 204/90 H 99 03/07/19 03:27 98.2 F 62 19 195/94 H 98 PG Care Time/CCT Total # of Minutes Spent Total Time Spent with Patient: Total time spent is greater than 50% in coordination of care (as documented) at patient's floor/unit and/or counseling p atient:
[2019-03-09 05:53] LABS: Creatinine Ur 42 MG/DL (20-320); Protein, Urine 24 Hour 540 MG/24HRS. (0-149); Total Protein, Urine 40 MG/DL; Urine Protein/Creatinine Ratio 952 (<OR=115)
== END 2019-03-07 15:18 | disposition home or self-care (01) | DRG 291 ==
LOC: ED 08:17 → 2N 11:22 → SUATTDRO 11:22 → 2N 12:51

== ENCOUNTER 2019-05-14 16:05 | Inpatient (IN) ==
[2019-05-14 16:28] LABS: Hematocrit (blood only) 33.2 % (42-52); Hemoglobin 11.3 g/dL (14.0-18.0); Mean Corpuscular Volume 91.2 fL (80-100); Mean Platelet Volume 10.2 fL (7.4-10.4); Platelet Count 186 K/uL (130-400); RDW Coefficient of Variation 14.4 % (11.5-14.5); RDW Standard Deviation 48.2 fL (36.4-46.3); Red Blood Count 3.64 M/uL (4.7-6.1); White Blood Count 8.45 K/uL (4.8-10.8)
[2019-05-14 16:46] LABS: Albumin Level 3.2 gm/dl (3.4-5.0); BUN Creatinine Ratio 14.2 (10-20); Calcium 9.4 mg/dl (8.5-10.1); Est GFR (African American) 16.5; Est GFR (Non-African American) 14.3; Potassium 4.5 mmol/L (3.5-5.1)
[2019-05-14 16:49] LABS: Albumin Globulin Ratio 0.8 (0.9-2); Bilirubin,Total 1.1 mg/dl (0.2-1); Globulin 4.1 gm/dl (2.5-4.0); Total Protein 7.3 gm/dl (6.4-8.2)
[2019-05-14 16:50] LABS: Giant Platelets 1+; Immature Granulocytes # (auto) 0.01 K/uL (0.00-0.02); Immature Granulocytes % (auto) 0.1 %; Lymphocytes # (auto) 1.93 K/uL (1.2-3.4); Lymphocytes % (auto) 22.8 %; Monocytes # (auto) 0.46 K/uL (0.11-0.59); Monocytes % (auto) 5.4 %; Neutrophils # (auto) 6.05 K/uL (1.4-6.5); Neutrophils % (auto) 71.7 %
[2019-05-14 17:04] LABS: INR 1.4 (0.9-1.1); Prothrombin Time 13.9 Seconds (9.0-12.0)
--- NOTE | 2019-05-14 17:05 | XRay Report ---
SINGLE VIEW CHEST CLINICAL HISTORY: Dyspnea. FINDINGS: An AP, portable, upright chest radiograph is compared to study dated 03/03/2019. The examina tion is degraded by portable technique and patient rotation. The heart is enlarged noting atheroscler otic calcification of the thoracic aorta. The pulmonary vasculature is noncongested. Chronic elevatio n of left hemidiaphragm is similar to previous. There is bibasilar airspace consolidation, left great er than right. Airspace opacities are also seen in the right midlung. No large pleural effusion or pn eumothorax is seen. The skeletal structures are osteopenic. The bony thorax is grossly intact. IMPRESSION: 1. There is bibasilar airspace consolidation, left greater than right. Correlate clinically for evide nce of pneumonia/aspiration pneumonitis. Radiographic follow-up to resolution is recommended. 2. Cardiomegaly without radiographic evidence of congestive failure Electronically signed by: Tio Cole M.D. 05/14/2019 5:04 PM
[2019-05-14] MEDS ORDERED: SODIUM CHLORIDE 0.9% 1000ML 1,000 ML IV ONE (17:17)
[2019-05-14] MEDS ORDERED: PIPERACILL/TAZOBAC CONSULT ACTIVE PRN ×2 (17:40→21:46)
[2019-05-14] MEDS ORDERED: PIPERACILLIN/TAZOBACTAM 3.375 GM/115 ML BAG IV STA (17:40)
--- NOTE | 2019-05-14 17:46 | CT Scan Report ---
CT SCAN OF THE ABDOMEN AND PELVIS WITHOUT IV CONTRAST CLINICAL HISTORY: Right lower quadrant abdominal pain. Nausea and vomiting. COMPARISON STUDY: No priors. TECHNIQUE: CT scan of the abdomen and pelvis is performed from the lung bases to the proximal femora. Images are reviewed in the axial, sagittal, and coronal planes. IV contrast was not administered for this examination due to poor renal function and elevated serum creatinine. A dose lowering technique was utilized adhering to the principles of ALARA. CT DOSE: 1200.48 mGy.cm FINDINGS: Lung bases: The heart is enlarged and without pericardial effusion. There are coronary artery calcifi cations. There is diminished attenuation of the cardiac blood pool as compared to the myocardium sugg esting anemia. A small to moderate hiatal hernia is noted. The distal esophagus is filled with fluid end appears circumferentially thick walled. There are small pleural effusions with bibasilar consolid ation. Liver: The unenhanced liver is normal in size, contour, and attenuation. There is no intrahepatic rosalio iary ductal dilatation. There is extensive branching gas seen throughout the liver, which extends tow ards the capsular surface. This is highly concerning for portal venous gas. Gallbladder: There are numerous layering calcified gallstones. The gallbladder is distended, with no CT evidence of acute cholecystitis. Spleen: Normal in size and attenuation. There is a 10 mm peripherally calcified splenic artery aneury sm. Pancreas: The unenhanced pancreas is atrophic and grossly unremarkable. Adrenal glands: A 2.3 cm right adrenal nodule does not meet CT criteria for a fat-containing adenoma. There is also nodularity of the left adrenal gland. Kidneys: The unenhanced kidneys are atrophic and without hydronephrosis. There are no renal calculi i dentified. Bilateral renal cysts measure up to 2.6 cm. Additional subcentimeter cortical hypodensitie s also likely represent cysts but are too small for definitive characterization. Abdominal vasculature: The abdominal aorta is normal in course and caliber noting advanced atheroscle rotic calcification. Bowel: There is a large right inguinal hernia which contains what appears to be a thick-walled, infla med, and incarcerated bowel loop. There is also fluid within the hernia sac. The small bowel distal t o this is decompressed, as is the colon. The upstream small bowel loops are distended and fluid-fille d indicating obstruction. Small bowel loops measure up to 3.4 cm in diameter. There is also marked di stention of the fluid-filled stomach. No pneumatosis intestinalis is identified. There is extensive p ortal venous gas. No mesenteric venous gas is appreciated. The appendix is well-visualized and jonathan l. Peritoneum: No intraperitoneal free air is seen. Trace free fluid is noted in the pelvis. Lymphadenopathy: None. Pelvic viscera: Evaluation of the pelvis is significantly degraded by streak artifact from bilateral hip arthroplasties. The is decompressed and not well assessed. The prostate gland is not visualized d ue to streak artifact. Skeletal structures: The skeletal structures are osteopenic. Moderate lumbosacral spondylosis is obse rved. There are healed left-sided rib fractures. No lytic or blastic lesions are seen. Bilateral hip arthroplasties are in place. Soft tissues: There is body wall edema. IMPRESSION: 1. Findings are consistent with a small bowel obstruction secondary to an incarcerated right inguinal hernia. 2. The incarcerated small bowel loop appears markedly thick walled with surrounding inflammation and fluid. Additionally, there is extensive portal venous gas. These findings are highly concerning for b owel ischemia and surgical consultation is advised. 3. The stomach is markedly distended. There is fluid filling the distal esophagus which appears thick walled. Correlate clinically for evidence of esophagitis. 4. There is bibasilar airspace consolidation and pleural effusions. Given the above findings this lik philomena represents aspiration pneumonitis. 5. Cholelithiasis without CT evidence of acute cholecystitis. 6. Cardiomegaly. 7. A 2.3 cm right adrenal nodule is pathologically indeterminant but does not meet CT criteria for a fat-containing adenoma. 8. Trace free fluid in the pelvis is likely on a reactive basis. 9. Additional findings as above. Findings were discussed with Dr. Wilde in the emergency department at the time of interpretation. Electronically signed by: Tio Cole M.D. 05/14/2019 5:43 PM
--- NOTE | 2019-05-14 17:54 | Emergency Department Note ---
Entered by Melissa High acting as a scribe for Javier Wilde DO History of Present Illness General Chief complaint: Illness Stated complaint: VOMITING, WEAK Time Seen by Provider: 05/14/19 16:07 Source: patient History of Present Illness Onset (ago): day(s) 3 Location: abdomen Pain Consistency: + other (persistent ) Quality: + dull and + other (fullness) Associated symptoms: + nausea/vomiting, + shortness of breath, + weakness and + other (negative blurry vision; negative leg swelling; negative urinary symptoms); no chest pain The patient is a 78 year old male with a PMHx of NPH, CHF, Gout, Hypertension, Afib, CKD stage III, PAD, CAD, and Type 2 Diabetes who presents to the Emergency Room with complaints of persistent abdominal pain that began 3 days prior to arrival. The patient describes this pain as a dull pain and feels a fullness. The patient's daughter and state that the patient has been weak during this time as he has been vomiting. The patient states that he has not eaten much during this time. He reports feeling short of breath at this time and states that he is not on home oxygen. The patient denies headache, blurry vi aaron, leg swelling, urinary symptoms, and chest pain. He states that his last bowel movement was Thursday, 3 days ago, and states that this was normal. The patient states that he has not taken his Eliquis today as he was told to stop this for several days before he gets a lumbar puncture in [place] in several days. Home Medications Home Medications Medication Instructions Recorded Confirmed Type ascorbic acid (vitamin C) 1,000 mg PO QAM 10/08/18 05/14/19 History garlic 1,000 mg PO QAM 10/08/18 05/14/19 History multivitamin 1 tab PO QAM 10/08/18 05/14/19 History pravastatin 10 mg PO QAM 10/08/18 05/14/19 History febuxostat [Uloric] 40 mg PO QAM 12/14/18 05/14/19 History cholecalciferol (vitamin D3) 1,000 1,000 units PO QAM 01/17/19 05/14/19 History unit capsule fluvoxamine 100 mg PO HS 03/03/19 05/14/19 History apixaban 5 mg tablet 5 mg PO BID #180 tab 04/06/19 05/14/19 Rx ipratropium bromide 42 mcg (0.06 2 spray INTRANASAL BID #15 ml 04/07/19 05/14/19 Rx %) nasal spray aspirin 81 mg tablet,delayed 81 mg PO QAM 04/27/19 05/14/19 History release metoprolol tartrate 25 mg tablet 12.5 mg PO AMPM tab 04/27/19 05/14/19 History cefuroxime axetil 500 mg tablet 500 mg PO BID #20 tab 05/13/19 05/14/19 Rx amlodipine 5 mg PO QAM 05/14/19 05/14/19 History famotidine 40 mg PO QAM 05/14/19 05/14/19 History gabapentin See Rx Instructions mg PO 05/14/19 05/14/19 History DIRECTED glipizide 5 mg PO QAM 05/14/19 05/14/19 History lisinopril 5 mg PO QAM 05/14/19 05/14/19 History omega-3 fatty acids-fish oil [Fish 2,400 cap PO QAM 05/14/19 05/14/19 History Oil] plant stanol amarjit [Cholest Off] 0 mg PO BID 05/14/19 05/14/19 History torsemide 10 mg PO QAM 05/14/19 05/14/19 History vit C,J-Ol-yoxov-lutein-zeaxan 1 tab PO BID 05/14/19 05/14/19 History [PreserVision AREDS-2] Allergies Allergy/AdvReac Type Severity Reaction Status Date / Time latex Allergy Unknown LOCAL SKIN Verified 05/14/19 17:23 IRRITATION lisinopril Allergy Unknown hyperkalemi Verified 05/14/19 17:23 a sulfamethoxazole AdvReac increases Verified 05/14/19 17:23 [From Bactrim] potassium trimethoprim [From Bactrim] AdvReac increases Verified 05/14/19 17:23 potassium Past Med/Surg History Medical History Afib Arthritis Cataracts, both eyes RIGHT EYE BEING DONE FIRST Coronary arteriosclerosis Diabetes Diastolic dysfunction GERD (gastroesophageal reflux disease) High cholesterol History of stress test 2009 [place] D/T PASSED OUT WENT TO [facility]. 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 Hx of fall 09/2018 - SEEN IN ED - HAD CT OF HEAD - NEGATIVE Mitral regurgitation Normal pressure hydrocephalus Peripheral artery disease LEFT LEG Renal insufficiency Surgical History History of back surgery L3-L4 History of left hip replacement History of parathyroidectomy (Resolved) PARTIAL History of right hip replacement X2 Hx of hernia repair Family History Father Myocardial infarction Mother Gout CHF (congestive heart failure) Social History Preferred Language: Ukrainian Communication Ability: Effective Market Risk Specialist Required: No Beliefs That Will Affect Care: None Current Living Situation: Spouse Other Information That Helps Us Care for You: No Feels Safe at Home: Yes Safety Concerns: Feels Safe At This Time Smoking Status: Former smoker Tobacco Type: cigarettes ; Do You Dip or Chew Tobacco: No ; Smoking End Date: 1984 ; Second Hand Exposure: No ; Tobacco Cessation Education Requested by Patient: No Hx Alcohol Use: No Hx Substance Use: No Review of Systems See HPI for pertinent positives & negatives. and A total of 10 systems reviewed and were otherwise negative Physical Exam Vital Signs Vital Signs - 24 hr 05/14/19 16:09 05/14/19 16:26 05/14/19 16:31 Temperature 37 C Temperature Source Oral Pulse Rate 77 88 Pulse Rate [Finger] Pulse Rate from SpO2 Sensor 76 Respiratory Rate 25 H 22 Blood Pressure 170/69 H 170/69 H Blood Pressure [Left Arm] Blood Pressure Mean 90 102 Blood Pressure Mean [Left Arm] Pulse Oximetry 97 87 L 94 Oxygen Delivery Method Room Air Nasal Cannula Oxygen Flow Rate 3 Sepsis Recent Fever Within 48 Hours No Sepsis Action Taken by Nursing No Action Required 05/14/19 16:57 05/14/19 17:24 05/14/19 17:30 Temperature Temperature Source Pulse Rate 81 80 76 Pulse Rate [Finger] Pulse Rate from SpO2 Sensor 82 80 77 Respiratory Rate 22 21 25 H Blood Pressure Blood Pressure [Left Arm] Blood Pressure Mean Blood Pressure Mean [Left Arm] Pulse Oximetry 90 94 98 Oxygen Delivery Method Oxygen Flow Rate Sepsis Recent Fever Within 48 Hours Sepsis Action Taken by Nursing 05/14/19 18:00 05/14/19 18:11 05/14/19 18:12 Temperature Temperature Source Pulse Rate 74 76 Pulse Rate [Finger] 77 Pulse Rate from SpO2 Sensor 78 Respiratory Rate 24 18 19 Blood Pressure 160/98 H Blood Pressure [Left Arm] 160/98 H Blood Pressure Mean 120 Blood Pressure Mean [Left Arm] 118 Pulse Oximetry 95 96 Oxygen Delivery Method Nasal Cannula Nasal Cannula Oxygen Flow Rate 2 2 Sepsis Recent Fever Within 48 Hours Sepsis Action Taken by Nursing 05/14/19 18:30 Temperature Temperature Source Pulse Rate 74 Pulse Rate [Finger] Pulse Rate from SpO2 Sensor 73 Respiratory Rate 26 H Blood Pressure Blood Pressure [Left Arm] Blood Pressure Mean Blood Pressure Mean [Left Arm] Pulse Oximetry 95 Oxygen Delivery Method Nasal Cannula Oxygen Flow Rate 2 Sepsis Recent Fever Within 48 Hours Sepsis Action Taken by Nursing GENERAL: Sitting up in bed, alert, chronically ill-appearing, on nasal cannula, well nourished, no distress, EYE EXAM: normal conjunctiva OROPHARYNX: no exudate, no erythema, lips, buccal mucosa, and tongue normal and mucous membranes are moist NECK: supple, no nuchal rigidity, no adenopathy, non-tender LUNGS: Wheezing bilaterally. Normal chest wall mechanics HEART: no murmurs, S1 normal and S2 normal ABDOMEN: Tenderness to the right lower quadrant. Abdomen soft, normo-active bowel sounds, no masses, no rebound or guarding. BACK: Back is symmetrical on inspection and there is no deformity, no midline tenderness, no CVA tenderness. : Firm right inguinal hernia, nonreducible, acutely tender to palpation. SKIN: no rashes and no bruising UPPER EXTREMITIES: upper extremities are grossly normal. LOWER EXTREMITIES: No pitting edema. NEURO EXAM: Awake alert following commands slightly confused to previous events, cranial nerves II-XII grossly intact, normal speech. Course Course ED COURSE: Vital signs were reviewed and showed hypertension. The patients medical record was reviewed The above diagnostic studies were performed and reviewed. ED treatments and interventions as stated above. 1611: The patient was seen and evaluated by Dr. Obdulia Montelongo, the resident. 1636: The patient was evaluated in room B10. A complete history and physical examination was performed. 1740: I checked on and updated the patient and his family. The patient's family states that they are almost positive the patient took his Eliquis last night. 1744: I discussed the case with Dr. Chen Gutiérrez who recommends speaking to the hospitalist for further evaluation of the patient. 1751: [facility] who recommends discussing the case with Dr. Chen Gutiérrez further. 1806: I checked on the patient and updated him. Dr. Chen Gutiérrez and Dr. Dominguez Hospitalist were in the room as well and it was decided that Dr. Pham will take the patient to the OR and Dr. Dominguez Hospitalist will further evaluate the patient. 1817: I talked to Dr. Chen Gutiérrez who states that he will place an NG tube in the OR. 1818: Upon reevaluation, the patient is resting comfortably. I discussed my findings with the patient and he understands and agrees with the treatment plan. Based on the patients age, coexisting illnesses, exam and lab findings the decision to treat as an inpatient was made. The patient remained stable while under my care. The patient will be evaluated for further management. Administered Medications Albuterol (Duoneb) 3 ml NEB QIDR [facility] Stop: 06/14/19 06:59 Last Admin: 05/15/19 21:38 Dose: 3 ml Documented by: [id number] Admin: 05/15/19 13:52 Dose: 3 ml Documented by: [id number] Admin: 05/15/19 11:12 Dose: 3 ml Documented by: [id number] Admin: 05/15/19 07:42 Dose: 3 ml Documented by: [id number] Norepinephrine Bitartrate 8 mg (/ Dextrose) 508 mls @ 56.807 mls/hr IV .[id number] [facility]; Protocol Stop: 06/13/19 22:14 Last Admin: 05/16/19 05:26 Dose: 0.15 mcg/kg/min, 56.8 mls/hr Documented by: [id number] Cosigned by: [id number] Titration: 05/16/19 05:13 Dose: 0.15 mcg/kg/min, 56.8 mls/hr Documented by: [id number] Cosigned by: [id number] Titration: 05/16/19 01:50 Dose: 0.15 mcg/kg/min, 56.8 mls/hr Documented by: [id number] Titration: 05/16/19 00:53 Dose: 0.1 mcg/kg/min, 37.9 mls/hr Documented by: [id number] Titration: 05/15/19 23:17 Dose: 0.15 mcg/kg/min, 56.8 mls/hr Documented by: [id number] Cosigned by: [id number] Titration: 05/15/19 22:57 Dose: 0.15 mcg/kg/min, 56.8 mls/hr Documented by: [id number] Titration: 05/15/19 22:15 Dose: 0.12 mcg/kg/min, 45.4 mls/hr Documented by: [id number] Titration: 05/15/19 18:50 Dose: 0.1 mcg/kg/min, 37.9 mls/hr Documented by: [id number] Cosigned by: [id number] Admin: 05/15/19 18:36 Dose: 0.1 mcg/kg/min, 37.9 mls/hr Documented by: [id number] Cosigned by: [id number] Titration: 05/15/19 18:36 Dose: 0.1 mcg/kg/min, 37.9 mls/hr Documented by: [id number] Cosigned by: [id number] Titration: 05/15/19 04:37 Dose: 0.07 mcg/kg/min, 26.5 mls/hr Documented by: [id number] Titration: 05/15/19 04:26 Dose: 0.05 mcg/kg/min, 18.9 mls/hr Documented by: [id number] Titration: 05/15/19 03:03 Dose: 0 mcg/kg/min, 0 mls/hr Documented by: [id number] Admin: 05/15/19 02:57 Dose: 0.05 mcg/kg/min, 18.9 mls/hr Documented by: [id number] Cosigned by: [id number] Admin: 05/14/19 23:14 Dose: Not Given Documented by: [id number] Fentanyl Citrate (Fentanyl Drip) 1,250 mcg in 250 mls @ 10 mls/hr IV .Q24H [facility]; Protocol Stop: 05/28/19 21:59 Last Titration: 05/16/19 00:01 Dose: 50 mcg/hr, 10 mls/hr Documented by: [id number] Titration: 05/15/19 23:18 Dose: 0 mcg/hr, 0 mls/hr Documented by: [id number] Cosigned by: [id number] Titration: 05/15/19 22:57 Dose: 50 mcg/hr, 10 mls/hr Documented by: [id number] Titration: 05/15/19 19:31 Dose: 75 mcg/hr, 15 mls/hr Documented by: [id number] Titration: 05/15/19 18:50 Dose: 50 mcg/hr, 10 mls/hr Documented by: [id number] Titration: 05/15/19 18:20 Dose: 50 mcg/hr, 10 mls/hr Documented by: [id number] Titration: 05/15/19 04:41 Dose: 25 mcg/hr, 5 mls/hr Documented by: [id number] Titration: 05/15/19 02:02 Dose: 50 mcg/hr, 10 mls/hr Documented by: [id number] Admin: 05/14/19 22:48 Dose: 25 mcg/hr, 5 mls/hr Documented by: [id number] Cosigned by: [id number] Famotidine 20 mg/ Syringe 5 mls @ 2.5 mls/min IV DAILY [facility] Stop: 06/14/19 08:59 Last Admin: 05/15/19 07:48 Dose: 2.5 mls/min Documented by: [id number] Piperacillin Sod/Tazobactam (Sod 4.5 gm/ Dextrose) 120 mls @ 30 mls/hr IV Q12H [facility]; Protocol Stop: 05/25/19 19:59 Last Infusion: 05/16/19 01:52 Dose: 0 mls/hr Documented by: [id number] Admin: 05/15/19 20:59 Dose: 30 mls/hr Documented by: [id number] Sodium Bicarbonate 100 meq/ (Sterile Water) 1,100 mls @ 100 mls/hr IV .Q11H [facility] Stop: 06/15/19 00:44 Last Admin: 05/16/19 04:00 Dose: 100 mls/hr Documented by: [id number] Discontinued Medications Bupivacaine HCl (Marcaine 0.5% Mpf) Confirm Administered Dose 30 ml .ROUTE .STK- MED ONE Stop: 05/14/19 18:55 Last Admin: 05/14/19 21:23 Dose: 12 ml Documented by: [id number] Epinephrine HCl (Epinephrine) Confirm Administered Dose 1 mg .ROUTE .STK-MED ONE Stop: 05/14/19 18:55 Last Admin: 05/14/19 21:14 Dose: 0.15 mg Documented by: [id number] Furosemide (Lasix) Confirm Administered Dose 40 mg IV .STK-MED ONE Stop: 05/14/19 19:25 Last Admin: 05/14/19 19:26 Dose: 40 mg Documented by: [id number] Furosemide (Lasix) 40 mg IV NOW STA Stop: 05/14/19 21:47 Last Admin: 05/14/19 23:48 Dose: Not Given Documented by: [id number] Sodium Chloride (Nss 1000ml) 1,000 mls @ 999 mls/hr IV .Q1H1M ONE Stop: 05/14/19 18:17 Last Infusion: 05/14/19 18:27 Dose: 0 mls/hr Documented by: [id number] Admin: 05/14/19 17:25 Dose: 999 mls/hr Documented by: [id number] Piperacillin Sod/Tazobactam Sod (Zosyn) 3.375 gm in 115 mls @ 230 mls/hr IV NOW STA Stop: 05/14/19 18:09 Last Infusion: 05/14/19 19:16 Dose: 0 mls/hr Documented by: [id number] Admin: 05/14/19 18:09 Dose: 230 mls/hr Documented by: [id number] Metronidazole (Flagyl) 500 mg in 100 mls @ 100 mls/hr IV NOW STA Stop: 05/14/19 19:00 Last Infusion: 05/14/19 21:57 Dose: 0 mls/hr Documented by: [id number] Admin: 05/14/19 18:51 Dose: 100 mls/hr Documented by: [id number] Piperacillin Sod/Tazobactam (Sod 3.375 gm/ Dextrose) 115 mls @ 28.75 mls/hr IV Q8H [facility]; Protocol Stop: 05/25/19 00:00 Last Infusion: 05/15/19 11:50 Dose: 0 mls/hr Documented by: [id number] Admin: 05/15/19 07:47 Dose: 28.8 mls/hr Documented by: [id number] Infusion: 05/15/19 03:49 Dose: 0 mls/hr Documented by: [id number] Admin: 05/14/19 23:27 Dose: 28.8 mls/hr Documented by: [id number] Sodium Chloride (Nss 1000ml) 1,000 mls @ 75 mls/hr IV .[id number] [facility] Stop: 06/13/19 21:45 Last Infusion: 05/15/19 03:03 Dose: 0 mls/hr Documented by: [id number] Admin: 05/14/19 22:42 Dose: 75 mls/hr Documented by: [id number] Famotidine 20 mg/ Syringe 5 mls @ 2.5 mls/min IV ONE ONE Stop: 05/14/19 22:16 Last Admin: 05/14/19 22:43 Dose: 2.5 mls/min Documented by: [id number] Furosemide 40 mg/ Syringe 4 mls @ 4 mls/min IV ONE ONE Stop: 05/14/19 22:01 Last Admin: 05/14/19 23:48 Dose: Not Given Documented by: [id number] Propofol (Diprivan) 1,000 mg in 100 mls @ 0 mls/hr IV .Q0M [facility]; Protocol Stop: 05/17/19 21:44 Last Titration: 05/15/19 23:18 Dose: 0 mcg/kg/min, 0 mls/hr Documented by: [id number] Cosigned by: [id number] Admin: 05/15/19 22:47 Dose: 5.03 mcg/kg/min, 3 mls/hr Documented by: [id number] Cosigned by: [id number] Titration: 05/15/19 22:47 Dose: 5.03 mcg/kg/min, 3 mls/hr Documented by: [id number] Cosigned by: [id number] Titration: 05/15/19 18:50 Dose: 5.03 mcg/kg/min, 3 mls/hr Documented by: [id number] Admin: 05/14/19 22:19 Dose: 5 mcg/kg/min, 3 mls/hr Documented by: [id number] Cosigned by: [id number] Furosemide 40 mg/ Syringe 4 mls @ 4 mls/min IV ONE ONE Stop: 05/14/19 23:16 Last Admin: 05/14/19 23:18 Dose: 4 mls/min Documented by: [id number] Methylprednisolone 60 mg/ (Syringe) 0.96 mls @ 1.5 mls/min IV BID [facility] Stop: 06/14/19 08:59 Last Admin: 05/15/19 20:59 Dose: 1.5 mls/min Documented by: [id number] Admin: 05/15/19 07:47 Dose: 1.5 mls/min Documented by: [id number] Parenteral Electrolytes (Normosol-R) 1,000 mls @ 80 mls/hr IV .[id number] [facility] Stop: 06/14/19 03:14 Last Infusion: 05/15/19 23:48 Dose: 0 mls/hr Documented by: [id number] Admin: 05/15/19 20:56 Dose: 125 mls/hr Documented by: [id number] Infusion: 05/15/19 20:12 Dose: 125 mls/hr Documented by: [id number] Admin: 05/15/19 12:12 Dose: 125 mls/hr Documented by: [id number] Infusion: 05/15/19 10:59 Dose: 125 mls/hr Documented by: [id number] Admin: 05/15/19 02:59 Dose: 125 mls/hr Documented by: [id number] Sodium Chloride (Nss) 500 mls @ 999 mls/hr IV .Q31M [facility] Stop: 05/15/19 03:00 Last Infusion: 05/15/19 03:05 Dose: 0 mls/hr Documented by: [id number] Admin: 05/15/19 03:04 Dose: 999 mls/hr Documented by: [id number] Parenteral Electrolytes (Normosol-R) 500 mls @ 999 mls/hr IV .Q31M ONE Stop: 05/15/19 05:12 Last Admin: 05/15/19 05:10 Dose: Not Given Documented by: [id number] Parenteral Electrolytes (Normosol-R) 1,000 mls @ 999 mls/hr IV .Q1H1M ONE Stop: 05/15/19 05:42 Last Infusion: 05/15/19 06:18 Dose: 0 mls/hr Documented by: [id number] Admin: 05/15/19 05:09 Dose: 999 mls/hr Documented by: [id number] Magnesium Sulfate/Dextrose (Magnesium Sulfate / D5w) 1 gm in 100 mls @ 100 mls/hr IV Q1H [facility] Stop: 05/15/19 07:14 Last Infusion: 05/15/19 08:50 Dose: 0 mls/hr Documented by: [id number] Admin: 05/15/19 07:40 Dose: 100 mls/hr Documented by: [id number] Infusion: 05/15/19 07:18 Dose: 100 mls/hr Documented by: [id number] Admin: 05/15/19 06:18 Dose: 100 mls/hr Documented by: [id number] Parenteral Electrolytes (Normosol-R) 500 mls @ 999 mls/hr IV .Q31M ONE Stop: 05/15/19 07:45 Last Infusion: 05/15/19 08:35 Dose: 0 mls/hr Documented by: [id number] Admin: 05/15/19 07:41 Dose: 999 mls/hr Documented by: [id number] Sodium Bicarbonate 150 meq/ (Sterile Water) 1,150 mls @ 100 mls/hr IV .[id number] [facility] Stop: 06/14/19 23:44 Last Infusion: 05/16/19 04:01 Dose: 0 mls/hr Documented by: [id number] Admin: 05/15/19 23:47 Dose: 100 mls/hr Documented by: [id number] Midazolam HCl (Versed) Confirm Administered Dose 2 mg .ROUTE .STK-MED ONE Stop: 05/14/19 21:36 Last Admin: 05/14/19 21:35 Dose: 2 mg Documented by: [id number] Midazolam HCl (Versed) 2 mg IV NOW STA Stop: 05/14/19 21:36 Last Admin: 05/15/19 06:50 Dose: Not Given Documented by: [id number] Morphine Sulfate (Morphine Sulfate) 4 mg IV NOW STA Stop: 05/14/19 18:45 Last Admin: 05/14/19 18:50 Dose: 4 mg Documented by: [id number] Ondansetron HCl (Zofran) 4 mg IV NOW STA Stop: 05/14/19 19:07 Last Admin: 05/14/19 19:15 Dose: 4 mg Documented by: [id number] Critical Care Time Critical Care Time: Yes Total Critical Care Time: 35 I have personally spent 35 minutes of critical care time in the direct management of this patient. This includes bedside care, interpretation of diagnostic studies, and testing, discussion with consultants, patient, and family members, and other required patient management activities. This 35 minutes is in excess of all separately billable procedures. Medical Decision Making Differential Diagnosis Differential diagnoses includes but is not limited to gastritis, peptic ulcer disease, GERD, gallbladder disease, pancreatitis, small bowel obstruction, acute coronary syndrome, pericarditis, ischemic bowel, irritable bowel disease, irritable bowel syndrome, appendicitis, diverticulitis, malignancy, hernia, urinary tract infection, torsion, perforation, trauma, infectious, pneumonia, bronchitis, COPD/Asthma exacerbation, pneumothorax, pulmonary embolism, congestive heart failure, acute coronary syndrome Medical Records Attestation: I reviewed the patient's medical records. Home Medications Current Medication List: was personally reviewed by me Laboratory Data Attestation: I reviewed the patient's lab results. Result diagrams: 05/16/19 04:47 05/16/19 04:47 Lab Results 05/14/19 05/14/19 05/14/19 Range/Units 16:16 16:16 16:16 WBC 8.45 (4.8-10.8) K/uL RBC 3.64 L (4.7-6.1) M/uL Hgb 11.3 L (14.0-18.0) g/dL Hct 33.2 L (42-52) % MCV 91.2 (80-100) fL MCH 31.0 (25-34) pg MCHC 34.0 (32-36) g/dL RDW Std Deviation 48.2 H (36.4-46.3) fL RDW Coeff of Ekta 14.4 (11.5-14.5) % Plt Count 186 (130-400) K/uL MPV 10.2 (7.4-10.4) fL Immature Gran % (Auto) 0.1 % Neut % (Auto) 71.7 % Lymph % (Auto) 22.8 % [place] % (Auto) 5.4 % Eos % (Auto) 0.0 % Baso % (Auto) 0.0 % Immature Gran # (Auto) 0.01 (0.00-0.02) K/uL Neut # (Auto) 6.05 (1.4-6.5) K/uL Lymph # (Auto) 1.93 (1.2-3.4) K/uL [place] # (Auto) 0.46 (0.11-0.59) K/uL Eos # (Auto) 0.00 (0-0.5) K/uL Baso # (Auto) 0.00 (0-0.2) K/uL Giant Platelets 1+ PT 13.9 H (9.0-12.0) Seconds INR 1.4 H (0.9-1.1) POC pH (7.35-7.45) POC pCO2 (35-46) mmHg POC pO2 (80-95) mmHg POC HCO3 (19-24) dorothy/L POC Total CO2 (24-31) mEq/l POC Base Excess (-9-1.8) dorothy/L POC ABG O2 Sat (90-95) % Sodium 136 (136-145) mmol/L Potassium 4.5 (3.5-5.1) mmol/L Chloride 100 (98-107) mmol/L Carbon Dioxide 22 (21-32) mmol/L Anion Gap 14.0 H (3-11) BUN 54 H (7-18) mg/dl Creatinine 3.83 H D (0.6-1.4) mg/dl Est Cr Clr Drug Dosing 20.0 ml/min Est GFR ( Amer) 16.5 Est GFR (Non-Af Amer) 14.3 BUN/Creatinine Ratio 14.2 (10-20) Glucose 185 H (70-99) mg/dl POC Glucose (70-99) Calcium 9.4 (8.5-10.1) mg/dl Total Bilirubin 1.1 H (0.2-1) mg/dl AST 51 H (15-37) U/L ALT 47 (12-78) U/L Alkaline Phosphatase 106 (45-117) U/L Troponin I 0.037 (0-0.045) ng/ml NT-Pro-B Natriuret Pep 8066 H (0-1800) pg/ml Total Protein 7.3 (6.4-8.2) gm/dl Albumin 3.2 L (3.4-5.0) gm/dl Globulin 4.1 H (2.5-4.0) gm/dl Albumin/Globulin Ratio 0.8 L (0.9-2) Lipase 228 (73-393) U/L 05/14/19 05/14/19 Range/Units 19:27 21:43 WBC (4.8-10.8) K/uL RBC (4.7-6.1) M/uL Hgb (14.0-18.0) g/dL Hct (42-52) % MCV (80-100) fL MCH (25-34) pg MCHC (32-36) g/dL RDW Std Deviation (36.4-46.3) fL RDW Coeff of Ekta (11.5-14.5) % Plt Count (130-400) K/uL MPV (7.4-10.4) fL Immature Gran % (Auto) % Neut % (Auto) % Lymph % (Auto) % [place] % (Auto) % Eos % (Auto) % Baso % (Auto) % Immature Gran # (Auto) (0.00-0.02) K/uL Neut # (Auto) (1.4-6.5) K/uL Lymph # (Auto) (1.2-3.4) K/uL [place] # (Auto) (0.11-0.59) K/uL Eos # (Auto) (0-0.5) K/uL Baso # (Auto) (0-0.2) K/uL Giant Platelets PT (9.0-12.0) Seconds INR (0.9-1.1) POC pH 7.29 L (7.35-7.45) POC pCO2 50 H (35-46) mmHg POC pO2 67 L (80-95) mmHg POC HCO3 24 (19-24) dorothy/L POC Total CO2 26 (24-31) mEq/l POC Base Excess -2.0 (-9-1.8) dorothy/L POC ABG O2 Sat 91.0 (90-95) % Sodium (136-145) mmol/L Potassium (3.5-5.1) mmol/L Chloride (98-107) mmol/L Carbon Dioxide (21-32) mmol/L Anion Gap (3-11) BUN (7-18) mg/dl Creatinine (0.6-1.4) mg/dl Est Cr Clr Drug Dosing ml/min Est GFR ( Amer) Est GFR (Non-Af Amer) BUN/Creatinine Ratio (10-20) Glucose (70-99) mg/dl POC Glucose 115 H (70-99) Calcium (8.5-10.1) mg/dl Total Bilirubin (0.2-1) mg/dl AST (15-37) U/L ALT (12-78) U/L Alkaline Phosphatase (45-117) U/L Troponin I (0-0.045) ng/ml NT-Pro-B Natriuret Pep (0-1800) pg/ml Total Protein (6.4-8.2) gm/dl Albumin (3.4-5.0) gm/dl Globulin (2.5-4.0) gm/dl Albumin/Globulin Ratio (0.9-2) Lipase (73-393) U/L Imaging Data Radiologist's Impression: Radiology results as stated below per my review and the radiologist's interpretation: SINGLE VIEW CHEST CLINICAL HISTORY: Dyspnea. FINDINGS: An AP, portable, upright chest radiograph is compared to study dated 03/03/2019. The examination is degraded by portable technique and patient rotation. The heart is enlarged noting atherosclerotic calcification of the thoracic aorta. The pulmonary vasculature is noncongested. Chronic elevation of left hemidiaphragm is similar to previous. There is bibasilar airspace consolidation, left greater than right. Airspace opacities are also seen in the right midlung. No large pleural effusion or pneumothorax is seen. The skeletal structures are osteopenic. The bony thorax is grossly intact. IMPRESSION: 1. There is bibasilar airspace consolidation, left greater than right. Correlate clinically for evidence of pneumonia/aspiration pneumonitis. Radiographic follow-up to resolution is recommended. 2. Cardiomegaly without radiographic evidence of congestive failure Electronically signed by: Tio Cole M.D. 05/14/2019 5:[address] SCAN OF THE ABDOMEN AND PELVIS WITHOUT IV CONTRAST CLINICAL HISTORY: Right lower quadrant abdominal pain. Nausea and vomiting. COMPARISON STUDY: No priors. TECHNIQUE: CT scan of the abdomen and pelvis is performed from the lung bases to the proximal femora. Images are reviewed in the axial, sagittal, and coronal planes. IV contrast was not administered for this examination due to poor renal function and elevated serum creatinine. A dose lowering technique was utilized adhering to the principles of ALARA. CT DOSE: 1200.48 mGy.cm FINDINGS: Lung bases: The heart is enlarged and without pericardial effusion. There are coronary artery calcifications. There is diminished attenuation of the cardiac blood pool as compared to the myocardium suggesting anemia. A small to moderate hiatal hernia is noted. The distal esophagus is filled with fluid end appears circumferentially thick walled. There are small pleural effusions with bibasilar consolidation. Liver: The unenhanced liver is normal in size, contour, and attenuation. There is no intrahepatic biliary ductal dilatation. There is extensive branching gas seen throughout the liver, which extends towards the capsular surface. This is highly concerning for portal venous gas. Gallbladder: There are numerous layering calcified gallstones. The gallbladder is distended, with no CT evidence of acute cholecystitis. Spleen: Normal in size and attenuation. 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 Pancreas: The unenhanced pancreas is atrophic and grossly unremarkable. Adrenal glands: A 2.3 cm right adrenal nodule does not meet CT criteria for a fat-containing adenoma. There is also nodularity of the left adrenal gland. Kidneys: The unenhanced kidneys are atrophic and without hydronephrosis. There are no renal calculi identified. Bilateral renal cysts measure up to 2.6 cm. Additional subcentimeter cortical hypodensities also likely represent cysts but are too small for definitive characterization. Abdominal vasculature: The abdominal aorta is normal in course and caliber noting advanced atherosclerotic calcification. Bowel: There is a large right inguinal hernia which contains what appears to be a thick-walled, inflamed, and incarcerated bowel loop. There is also fluid within the hernia sac. The small bowel distal to this is decompressed, as is the colon. The upstream small bowel loops are distended and fluid-filled indicating obstruction. Small bowel loops measure up to 3.4 cm in diameter. There is also marked distention of the fluid-filled stomach. No pneumatosis intestinalis is identified. There is extensive portal venous gas. No mesenteric venous gas is appreciated. The appendix is well-visualized and normal. Peritoneum: No intraperitoneal free air is seen. Trace free fluid is noted in the pelvis. Lymphadenopathy: None. Pelvic viscera: Evaluation of the pelvis is significantly degraded by streak artifact from bilateral hip arthroplasties. The is decompressed and not well assessed. The prostate gland is not visualized due to streak artifact. Skeletal structures: The skeletal structures are osteopenic. Moderate lumbosacral spondylosis is observed. There are healed left-sided rib fractures. No lytic or blastic lesions are seen. Bilateral hip arthroplasties are in place. Soft tissues: There is body wall edema. IMPRESSION: 1. Findings are consistent with a small bowel obstruction secondary to an incarcerated right inguinal hernia. 2. The incarcerated small bowel loop appears markedly thick walled with surrounding inflammation and fluid. Additionally, there is extensive portal venous gas. These findings are highly concerning for bowel ischemia and surgical consultation is advised. 3. The stomach is markedly distended. There is fluid filling the distal esophagus which appears thick walled. Correlate clinically for evidence of esophagitis. 4. There is bibasilar airspace consolidation and pleural effusions. Given the above findings this likely represents aspiration pneumonitis. 5. Cholelithiasis without CT evidence of acute cholecystitis. 6. Cardiomegaly. 7. A 2.3 cm right adrenal nodule is pathologically indeterminant but does not meet CT criteria for a fat-containing adenoma. 8. Trace free fluid in the pelvis is likely on a reactive basis. 9. Additional findings as above. Findings were discussed with Dr. Wilde in the emergency department at the time of interpretation. Electronically signed by: Tio Cole M.D. 05/14/2019 5:43 PM ECG Data Attestation: I personally reviewed and interpreted this ECG as follows: Indication: + SOB/dyspnea Rate (beats per minute): 85 Rhythm: + atrial fibrillation ECG Intervals/blocks: + Normal QT ECG Penelope: + Left axis deviation ECG ST segments: + ST depression (anterior ) ECG Findings: + Other (poor baseline ) Comparison ECG Date: from (03/04/19) Change: no significant change Blood Pressure Blood Pressure Findings: Elevated blood pressure Blood Pressure Disposition: further management by hospitalist MITCH Hernandez Patient is a 78-year-old male with a past medical history of CKD, A. fib, hypertension, CHF presents the ER for vomiting associated with right lower quadrant abdominal pain. On exam he has a nonreducible right inguinal hernia. Pain is been present for the past 3 days. He is at his baseline per family. IV was established blood work was obtained. Labs show no significant leukocytosis or anemia. INR was at 1.4 as this gentleman takes Eliquis 5 mg twice a day with his last dose being last night. Creatinine was elevated at 3.8 off of a baseline of what appears to be 2.5. BUN was slightly elevated as well. Bilirubin LFTs are unremarkable. BNP was slightly elevated at 8000. Lipase was unremarkable. CT abdomen pelvis shows incarcerated/strangulate right inguinal hernia with portal venous gas and bilateral aspiration pneumonia which confirmed on chest x-ray as her bilateral lower lobe infiltrates. Patient was covered with IV Zosyn and Flagyl. He was updated bedside. He was hypoxic at 87% on room air which I do favor secondary to the aspiration. Family and patient were updated bedside. Discussed with general surgery who presented at bedside and discussed with the hospitalist as well who is at bedside. Patient will go to the OR secondary to a strangulated right inguinal hernia with portal venous gas and will likely be difficult to extubate secondary to the bilateral aspiration pneumonia. 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 Discharge Plan Visit Data *Final* Discharge Date/Time: 05/14/19 19:29 Chief Complaint: Illness Stated Complaint: VOMITING, WEAK ED Provider: Javier Wilde ED Midlevel Provider: Obdulia Montelongo Discharge Problem: Strangulated inguinal hernia, Acute kidney injury, Hypoxia, Aspiration pneumonia, Current use of alf anticoagulation Patient Disposition: Admitted As Inpatient Discharge Instructions Interventions: ED Discharge Assessment Last Done: 05/14/19 19:29 Resident Activity Tracking Resident Involvement: Resident Care Provided Care Provided: Adult ED (patient seen and evaluated in conjunction with Dr. Wilde) The scribe's documentation has been prepared under my direction and personally reviewed by me in its entirety. I confirm that the note above accurately reflects all work, treatment, procedures, and medical decision making performed by me.
[2019-05-14] MEDS ORDERED: metroNIDAZOLE 500 MG/100 ML BAG IV STA (18:01)
[2019-05-14 18:20] LABS: Troponin I 0.037 ng/ml (0-0.045)
--- NOTE | 2019-05-14 18:32 | History & Physical Report ---
Date of Service May 14, 2019 Assessment & Plan (1) Incarcerated inguinal hernia: will plan exploration of right groin with possible ex lap IVF NGT IV abx Present on Admission?: Yes (2) SBO (small bowel obstruction): NGT Present on Admission?: Yes History of Present Illness Primary Care Provider: Jovany Stephenson MD 78YO male with 3 days of vomiting and increasing RLQ abdominal pain presents to ED. A CT scan shows incarcerated and possible strangulated right inguinal hernia with an obstructive pattern and some portal venous gas. The patient appears only in moderate discomfort. He took his eliquis last night. Allergies Allergy/AdvReac Type Severity Reaction Status Date / Time latex Allergy Unknown LOCAL SKIN Verified 05/14/19 17:23 IRRITATION lisinopril Allergy Unknown hyperkalemi Verified 05/14/19 17:23 a sulfamethoxazole AdvReac increases Verified 05/14/19 17:23 [From Bactrim] potassium trimethoprim [From Bactrim] AdvReac increases Verified 05/14/19 17:23 potassium Home Medications Home Medications Medication Instructions Recorded Confirmed Type ascorbic acid (vitamin C) 1,000 mg PO QAM 10/08/18 05/14/19 History garlic 1,000 mg PO QAM 10/08/18 05/14/19 History multivitamin 1 tab PO QAM 10/08/18 05/14/19 History pravastatin 10 mg PO QAM 10/08/18 05/14/19 History febuxostat [Uloric] 40 mg PO QAM 12/14/18 05/14/19 History cholecalciferol (vitamin D3) 1,000 1,000 units PO QAM 01/17/19 05/14/19 History unit capsule fluvoxamine 100 mg PO HS 03/03/19 05/14/19 History apixaban 5 mg tablet 5 mg PO BID #180 tab 04/06/19 05/14/19 Rx ipratropium bromide 42 mcg (0.06 2 spray INTRANASAL BID #15 ml 04/07/19 05/14/19 Rx %) nasal spray aspirin 81 mg tablet,delayed 81 mg PO QAM 04/27/19 05/14/19 History release metoprolol tartrate 25 mg tablet 12.5 mg PO AMPM tab 04/27/19 05/14/19 History cefuroxime axetil 500 mg tablet 500 mg PO BID #20 tab 05/13/19 05/14/19 Rx amlodipine 5 mg PO QAM 05/14/19 05/14/19 History famotidine 40 mg PO QAM 05/14/19 05/14/19 History gabapentin See Rx Instructions mg PO 05/14/19 05/14/19 History DIRECTED glipizide 5 mg PO QAM 05/14/19 05/14/19 History lisinopril 5 mg PO QAM 05/14/19 05/14/19 History omega-3 fatty acids-fish oil [Fish 2,400 cap PO QAM 05/14/19 05/14/19 History Oil] plant stanol amarjit [Cholest Off] 0 mg PO BID 05/14/19 05/14/19 History torsemide 10 mg PO QAM 05/14/19 05/14/19 History vit C,S-Gj-whixg-lutein-zeaxan 1 tab PO BID 05/14/19 05/14/19 History [PreserVision AREDS-2] Past Med/Surg History Medical History (Updated 05/14/19 @ 19:02 by Matheus Pham MD) Afib Arthritis Cataracts, both eyes RIGHT EYE BEING DONE FIRST Diabetes GERD (gastroesophageal reflux disease) High cholesterol History of stress test 2009 [place] D/T PASSED OUT WENT TO [facility]. 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 OF THIS Hx of fall 09/2018 - SEEN IN ED - HAD CT OF HEAD - NEGATIVE Normal pressure hydrocephalus Peripheral artery disease LEFT LEG Renal insufficiency Surgical History History of back surgery L3-L4 History of left hip replacement History of parathyroidectomy (Resolved) PARTIAL History of right hip replacement X2 Hx of hernia repair Family History Father Myocardial infarction Mother Gout CHF (congestive heart failure) Social History Preferred Language: Setswana Communication Ability: Effective [employer] Required: No Beliefs That Will Affect Care: None Current Living Situation: Spouse Other Information That Helps Us Care for You: No Feels Safe at Home: Yes Safety Concerns: Feels Safe At This Time Smoking Status: Former smoker Tobacco Type: cigarettes ; Do You Dip or Chew Tobacco: No ; Smoking End Date: 1984 ; Second Hand Exposure: No ; Tobacco Cessation Education Requested by Patient: No Hx Alcohol Use: No Hx Substance Use: No Review of Systems + weakness; no fever and no chills no cough and no dyspnea no chest pain and no dyspnea + abdominal pain, + nausea, + vomiting and + change in stools no dysuria no back pain and no joint pain + generalized weakness; no localized weakness no behavioral changes + fatigue + easy bleeding; no lymphadenopathy Physical Exam Constitutional: well developed and well nourished; no acute distress Eyes: PERRL, conjunctivae normal, anicteric sclerae Neck: trachea midline Respiratory: normal respiratory effort, lungs clear to auscultation no respiratory distress Cardiovascular: Rate/Rhythm: + irregularly irregular; not tachycardic Gastrointestinal (Abdomen): Inspection/Auscultation: abdomen normal to inspection, + abdomen distended and + visible herniation (right groin); + abnormal bowel sounds Percussion/Palpation: + abdomen tender and abdomen soft ASA Classification ASA [id number] Results & Data Vital Signs (Past 12 Hours) Vital Signs Temp Pulse Pulse Resp BP BP Pulse Ox 05/14/19 18:11 77 18 160/98 H 95 05/14/19 16:31 94 05/14/19 16:26 37 C 88 22 170/69 H [address] SCAN OF THE ABDOMEN AND PELVIS WITHOUT IV CONTRAST CLINICAL HISTORY: Right lower quadrant abdominal pain. Nausea and vomiting. COMPARISON STUDY: No priors. TECHNIQUE: CT scan of the abdomen and pelvis is performed from the lung bases to the proximal femora. Images are reviewed in the axial, sagittal, and coronal planes. IV contrast was not administered for this examination due to poor renal function and elevated serum creatinine. A dose lowering technique was utilized adhering to the principles of ALARA. CT DOSE: 1200.48 mGy.cm FINDINGS: Lung bases: The heart is enlarged and without pericardial effusion. There are coronary artery calcifications. There is diminished attenuation of the cardiac blood pool as compared to the myocardium suggesting anemia. A small to moderate hiatal hernia is noted. The distal esophagus is filled with fluid end appears circumferentially thick walled. There are small pleural effusions with bibasilar consolidation. Liver: The unenhanced liver is normal in size, contour, and attenuation. There is no intrahepatic biliary ductal dilatation. There is extensive branching gas seen throughout the liver, which extends towards the capsular surface. This is highly concerning for portal venous gas. Gallbladder: There are numerous layering calcified gallstones. The gallbladder is distended, with no CT evidence of acute cholecystitis. Spleen: Normal in size and attenuation. 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 Pancreas: The unenhanced pancreas is atrophic and grossly unremarkable. Adrenal glands: A 2.3 cm right adrenal nodule does not meet CT criteria for a fat-containing adenoma. There is also nodularity of the left adrenal gland. Kidneys: The unenhanced kidneys are atrophic and without hydronephrosis. There are no renal calculi identified. Bilateral renal cysts measure up to 2.6 cm. Additional subcentimeter cortical hypodensities also likely represent cysts but are too small for definitive characterization. Abdominal vasculature: The abdominal aorta is normal in course and caliber noting advanced atherosclerotic calcification. Bowel: There is a large right inguinal hernia which contains what appears to be a thick-walled, inflamed, and incarcerated bowel loop. There is also fluid within the hernia sac. The small bowel distal to this is decompressed, as is the colon. The upstream small bowel loops are distended and fluid-filled indicating obstruction. Small bowel loops measure up to 3.4 cm in diameter. There is also marked distention of the fluid-filled stomach. No pneumatosis intestinalis is identified. There is extensive portal venous gas. No mesenteric venous gas is appreciated. The appendix is well-visualized and normal. Peritoneum: No intraperitoneal free air is seen. Trace free fluid is noted in the pelvis. Lymphadenopathy: None. Pelvic viscera: Evaluation of the pelvis is significantly degraded by streak artifact from bilateral hip arthroplasties. The is decompressed and not well assessed. The prostate gland is not visualized due to streak artifact. Skeletal structures: The skeletal structures are osteopenic. Moderate lumbosacral spondylosis is observed. There are healed left-sided rib fractures. No lytic or blastic lesions are seen. Bilateral hip arthroplasties are in place. Soft tissues: There is body wall edema. IMPRESSION: 1. Findings are consistent with a small bowel obstruction secondary to an incarcerated right inguinal hernia. 2. The incarcerated small bowel loop appears markedly thick walled with surrounding inflammation and fluid. Additionally, there is extensive portal venous gas. These findings are highly concerning for bowel ischemia and surgical consultation is advised. 3. The stomach is markedly distended. There is fluid filling the distal esophagus which appears thick walled. Correlate clinically for evidence of esophagitis. 4. There is bibasilar airspace consolidation and pleural effusions. Given the above findings this likely represents aspiration pneumonitis. 5. Cholelithiasis without CT evidence of acute cholecystitis. 6. Cardiomegaly. 7. A 2.3 cm right adrenal nodule is pathologically indeterminant but does not meet CT criteria for a fat-containing adenoma. 8. Trace free fluid in the pelvis is likely on a reactive basis. 9. Additional findings as above. Code Status & VTE Plan VTE Prophylaxis Plan VTE Prophylaxis will be ordered: Yes
--- NOTE | 2019-05-14 18:38 | History & Physical Report ---
Date of Service May 14, 2019 Assessment & Plan (1) Strangulated inguinal hernia: Surgery was consulted. Discussed with the surgeon- the patient will be going for urgent surgery today. Patient is at high risk of postoperative complications. He was started on IV antibiotics. Add Zofran as needed for nausea vomiting and morphine for pain control. Present on Admission?: Yes (2) Acute kidney injury: Add gentle IV fluids. Consult nephrology Present on Admission?: Yes (3) Current use of senior living anticoagulation: Eliquis on hold. Present on Admission?: Yes (4) Neurologic gait dysfunction: (5) Diastolic heart failure: Cardiology consulted. BNP is high at 8066. Patient has acute on chronic heart failure Present on Admission?: Yes (6) NPH (normal pressure hydrocephalus): Patient to follow-up at [facility] (7) Mitral regurgitation: (8) CHF (congestive heart failure): (9) Hypertension: IV hydralazine PRN basis for uncontrolled hypertension. Present on Admission?: Yes (10) Stage 3 chronic kidney disease: (11) Atrial fibrillation: (12) PAD (peripheral artery disease): (13) Type 2 diabetes mellitus: Sliding scale insulin per protocol (14) Obstructive sleep apnea: (15) Full code status: CODE STATUS was discussed with the patient the family and he is a full code. History of Present Illness Chief Complaint: Abdominal pain and vomiting Primary Care Provider: Jovany Stephenson MD The patient is 78-year-old male with multiple medical problems including CAD, paroxysmal atrial fibrillation on anticoagulation with Eliquis, normal pressure hydrocephalus, cervical disc disease, stage III CKD, chronic diastolic heart magdiel lure, diabetes with neuropathy, obstructive sleep apnea, & hypertension. He has not been feeling well since yesterday; he is complaining of generalized weakness and fatigue and nausea since yesterday. He saw his family physician yesterday. He was also complaining of abdominal discomfort and noticed distention in the right groin area yesterday. He is complaining of constipation for the last 4 days. He passed some gas yesterday. Today he was having intractable vomiting. He has history of right inguinal hernia repair in the remote past. The further work-up done in the ER showed that patient has a strangulated right inguinal hernia. The surgery was notified and patient will be going for urgent surgery today. The blood labs show acute on chronic renal failure and he also has acute on chronic heart failure. BNP is high at 8066. The patient was on Eliquis and his last dose was last night. He stopped Eliquis this morning as he is supposed to go for lumbar puncture this Thursday at [facility]. The patient is at high risk of postoperative complications which was discussed with the patient and his family members who were present at bedside. Allergies Allergy/AdvReac Type Severity Reaction Status Date / Time latex Allergy Unknown LOCAL SKIN Verified 05/14/19 17:23 IRRITATION lisinopril Allergy Unknown hyperkalemi Verified 05/14/19 17:23 a sulfamethoxazole AdvReac increases Verified 05/14/19 17:23 [From Bactrim] potassium trimethoprim [From Bactrim] AdvReac increases Verified 05/14/19 17:23 potassium Home Medications Home Medications Medication Instructions Recorded Confirmed Type ascorbic acid (vitamin C) 1,000 mg PO QAM 10/08/18 05/14/19 History garlic 1,000 mg PO QAM 10/08/18 05/14/19 History multivitamin 1 tab PO QAM 10/08/18 05/14/19 History pravastatin 10 mg PO QAM 10/08/18 05/14/19 History febuxostat [Uloric] 40 mg PO QAM 12/14/18 05/14/19 History cholecalciferol (vitamin D3) 1,000 1,000 units PO QAM 01/17/19 05/14/19 History unit capsule fluvoxamine 100 mg PO HS 03/03/19 05/14/19 History apixaban 5 mg tablet 5 mg PO BID #180 tab 04/06/19 05/14/19 Rx ipratropium bromide 42 mcg (0.06 2 spray INTRANASAL BID #15 ml 04/07/19 05/14/19 Rx %) nasal spray aspirin 81 mg tablet,delayed 81 mg PO QAM 04/27/19 05/14/19 History release metoprolol tartrate 25 mg tablet 12.5 mg PO AMPM tab 04/27/19 05/14/19 History cefuroxime axetil 500 mg tablet 500 mg PO BID #20 tab 05/13/19 05/14/19 Rx amlodipine 5 mg PO QAM 05/14/19 05/14/19 History famotidine 40 mg PO QAM 05/14/19 05/14/19 History gabapentin See Rx Instructions mg PO 05/14/19 05/14/19 History DIRECTED glipizide 5 mg PO QAM 05/14/19 05/14/19 History lisinopril 5 mg PO QAM 05/14/19 05/14/19 History omega-3 fatty acids-fish oil [Fish 2,400 cap PO QAM 05/14/19 05/14/19 History Oil] plant stanol amarjit [Cholest Off] 0 mg PO BID 05/14/19 05/14/19 History torsemide 10 mg PO QAM 05/14/19 05/14/19 History vit C,R-Nc-iknmt-lutein-zeaxan 1 tab PO BID 05/14/19 05/14/19 History [PreserVision AREDS-2] Past Med/Surg History Medical History Afib Arthritis Cataracts, both eyes RIGHT EYE BEING DONE FIRST Diabetes GERD (gastroesophageal reflux disease) High cholesterol History of stress test 2009 [place] D/T PASSED OUT WENT TO [facility]. 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 Hx of fall 09/2018 - SEEN IN ED - HAD CT OF HEAD - NEGATIVE Peripheral artery disease LEFT LEG Surgical History History of back surgery L3-L4 History of left hip replacement History of parathyroidectomy (Resolved) PARTIAL History of right hip replacement X2 Hx of hernia repair Family History Father Myocardial infarction Mother Gout CHF (congestive heart failure) Social History Preferred Language: Mauritian Communication Ability: Effective Rn Allergy Required: No Beliefs That Will Affect Care: None Current Living Situation: Spouse Other Information That Helps Us Care for You: No Feels Safe at Home: Yes Safety Concerns: Feels Safe At This Time Smoking Status: Former smoker Tobacco Type: cigarettes ; Do You Dip or Chew Tobacco: No ; Smoking End Date: 1984 ; Second Hand Exposure: No ; Tobacco Cessation Education Requested by Patient: No Hx Alcohol Use: No Hx Substance Use: No Review of Systems Review of Systems: All systems reviewed & are unremarkable except as noted in HPI & below Physical Exam Physical Exam: GENERAL : No acute distress EYES: No icterus, gaze conjugate NOSE: No evidence of epistaxis MOUTH: No lesions or candidiasis, mucosa moist NECK: Supple LUNGS: Bilateral basal crackles present HEART: Regular, rate controlled Systolic murmur present ABDOMEN: Soft, bowel sounds hypoactive Scar of old hernia repair noted in the right groin. Strangulated right inguinal hernia noted. EXTREMITIES: No LE edema, pedal pulses intact NEURO: A&OX3 Results & Data Vital Signs (Past 12 Hours) Vital Signs Temp Pulse Pulse Resp BP BP Pulse Ox 05/14/19 18:11 77 18 160/98 H 95 05/14/19 16:31 94 05/14/19 16:26 98.6 F 88 22 170/69 H 87 L Laboratory Results 05/14/19 16:16 05/14/19 16:[address] SCAN OF THE ABDOMEN AND PELVIS WITHOUT IV CONTRAST CLINICAL HISTORY: Right lower quadrant abdominal pain. Nausea and vomiting. COMPARISON STUDY: No priors. TECHNIQUE: CT scan of the abdomen and pelvis is performed from the lung bases to the proximal femora. Images are reviewed in the axial, sagittal, and coronal planes. IV contrast was not administered for this examination due to poor renal function and elevated serum creatinine. A dose lowering technique was utilized adhering to the principles of ALARA. CT DOSE: 1200.48 mGy.cm FINDINGS: Lung bases: The heart is enlarged and without pericardial effusion. There are coronary artery calcifications. There is diminished attenuation of the cardiac blood pool as compared to the myocardium suggesting anemia. A small to moderate hiatal hernia is noted. The distal esophagus is filled with fluid end appears circumferentially thick walled. There are small pleural effusions with bibasilar consolidation. Liver: The unenhanced liver is normal in size, contour, and attenuation. There is no intrahepatic biliary ductal dilatation. There is extensive branching gas seen throughout the liver, which extends towards the capsular surface. This is highly concerning for portal venous gas. Gallbladder: There are numerous layering calcified gallstones. The gallbladder is distended, with no CT evidence of acute cholecystitis. Spleen: Normal in size and attenuation. 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 Pancreas: The unenhanced pancreas is atrophic and grossly unremarkable. Adrenal glands: A 2.3 cm right adrenal nodule does not meet CT criteria for a fat-containing adenoma. There is also nodularity of the left adrenal gland. Kidneys: The unenhanced kidneys are atrophic and without hydronephrosis. There are no renal calculi identified. Bilateral renal cysts measure up to 2.6 cm. Additional subcentimeter cortical hypodensities also likely represent cysts but are too small for definitive characterization. Abdominal vasculature: The abdominal aorta is normal in course and caliber noting advanced atherosclerotic calcification. Bowel: There is a large right inguinal hernia which contains what appears to be a thick-walled, inflamed, and incarcerated bowel loop. There is also fluid within the hernia sac. The small bowel distal to this is decompressed, as is the colon. The upstream small bowel loops are distended and fluid-filled indicating obstruction. Small bowel loops measure up to 3.4 cm in diameter. There is also marked distention of the fluid-filled stomach. No pneumatosis intestinalis is identified. There is extensive portal venous gas. No mesenteric venous gas is appreciated. The appendix is well-visualized and normal. Peritoneum: No intraperitoneal free air is seen. Trace free fluid is noted in the pelvis. Lymphadenopathy: None. Pelvic viscera: Evaluation of the pelvis is significantly degraded by streak artifact from bilateral hip arthroplasties. The is decompressed and not well assessed. The prostate gland is not visualized due to streak artifact. Skeletal structures: The skeletal structures are osteopenic. Moderate lumbosacral spondylosis is observed. There are healed left-sided rib fractures. No lytic or blastic lesions are seen. Bilateral hip arthroplasties are in place. Soft tissues: There is body wall edema. IMPRESSION: 1. Findings are consistent with a small bowel obstruction secondary to an incarcerated right inguinal hernia. 2. The incarcerated small bowel loop appears markedly thick walled with surrounding inflammation and fluid. Additionally, there is extensive portal venous gas. These findings are highly concerning for bowel ischemia and surgical consultation is advised. 3. The stomach is markedly distended. There is fluid filling the distal esophag us which appears thick walled. Correlate clinically for evidence of esophagitis. 4. There is bibasilar airspace consolidation and pleural effusions. Given the above findings this likely represents aspiration pneumonitis. 5. Cholelithiasis without CT evidence of acute cholecystitis. 6. Cardiomegaly. 7. A 2.3 cm right adrenal nodule is pathologically indeterminant but does not meet CT criteria for a fat-containing adenoma. 8. Trace free fluid in the pelvis is likely on a reactive basis. 9. Additional findings as above. [facility] [phone] XRay Report Patient: KENYATTA MALLORY Date: 05/14/19 MR#: [id number]: [address] [address] Acct ID:[id number]: [facility] Zip: [place] [address] Age: 78Location: ED Sex: M Room/Bed: Att Phy:Diagnosis: VOMITING, WEAK Yazmin Phy: Jovany Stephenson, MDService Date: 05/14/19 Fam Phy:Interpreting Phy: Tio Cole MD Admit Phy: Ordering Phy: Javier Wilde, cc: ~ SINGLE VIEW CHEST CLINICAL HISTORY: Dyspnea. FINDINGS: An AP, portable, upright chest radiograph is compared to study dated 03/03/2019. The examination is degraded by portable technique and patient rotation. The heart is enlarged noting atherosclerotic calcification of the t horacic aorta. The pulmonary vasculature is noncongested. Chronic elevation of left hemidiaphragm is similar to previous. There is bibasilar airspace consolidation, left greater than right. Airspace opacities are also seen in the right midlung. No large pleural effusion or pneumothorax is seen. The skeletal structures are osteopenic. The bony thorax is grossly intact. IMPRESSION: 1. There is bibasilar airspace consolidation, left greater than right. Correlate clinically for evidence of pneumonia/aspiration pneumonitis. Radiographic follow-up to resolution is recommended. 2. Cardiomegaly without radiographic evidence of congestive failure Electronically signed by: Tio Cole M.D. 05/14/2019 5:04 PM Dictated: 05/14/191701 Transcribed: 05/14/19 170 Code Status & VTE Plan Code Status full code VTE Prophylaxis Plan VTE Prophylaxis will be ordered: Yes PG Care Time/CCT Total # of Minutes Spent Total Time Spent with Patient: Total time spent is greater than 50% in coordination of care (as documented) at patient's floor/unit and/or counseling patient: (1) Mitral regurgitation Cardiac valve disease etiology: nonrheumatic Qualified Code(s): I34.0 - Nonrheumatic mitral (valve) insufficiency (2) CHF (congestive heart failure) Heart failure chronicity: unspecified Heart failure type: unspecified Qualified Code(s): I50.9 - Heart failure, unspecified (3) Atrial fibrillation Atrial fibrillation type: paroxysmal Qualified Code(s): I48.0 - Paroxysmal atrial fibrillation
[2019-05-14] MEDS ORDERED: MoRPHine SULFATE 4 MG/ML 1 ML CARP\\VIAL IV STA (18:44)
[2019-05-14] MEDS ORDERED: BUPIVACAINE 0.5 % 5 MG/1 ML MPF 30ML VIAL ONE (18:54)
[2019-05-14] MEDS ORDERED: EPINEPHrine INJ 1 MG/ML AMP ONE (18:54)
[2019-05-14] MEDS ORDERED: SUCCINYLCHOLINE 100MG/5ML SYR ONE (18:55)
[2019-05-14] MEDS ORDERED: LIDOCAINE HCL 2% 2 ML VIAL/AMP(20MG/ML) INFIL ONE (18:55)
[2019-05-14] MEDS ORDERED: PROPOFOL IV EMULSION 10 MG/ML 20 ML VIAL IV ONE (18:55)
[2019-05-14] MEDS ORDERED: ROCURONIUM BROMIDE 10 MG/ML 5 ML VIAL ONE (18:59)
[2019-05-14] MEDS ORDERED: fentaNYL citrate 100 MCG/2 ML VIAL ONE (19:00)
[2019-05-14] MEDS ORDERED: PHENYLEPHRINE 100MCG/ML 5ML SYR IV PRN (19:02)
[2019-05-14] MEDS ORDERED: ePHEDrine sulfate 50 MG/ML AMP IV PRN (19:02)
[2019-05-14] MEDS ORDERED: ONDANSETRON INJ 2 MG/ML 2 ML VIAL IV PRN ×2 (19:02→21:46)
[2019-05-14] MEDS ORDERED: LABETALOL HCL IV 5 MG/ML 20ML IV PRN (19:02)
[2019-05-14] MEDS ORDERED: HYDROmorphone INJ 1 MG/ML SYRINGE IV PRN (19:02)
[2019-05-14] MEDS ORDERED: ATROPINE SULFATE 0.1 MG/ML 10ML SYR IV PRN (19:02)
[2019-05-14] MEDS ORDERED: fentaNYL citrate 100 MCG/2 ML VIAL IV PRN ×2 (19:02→21:45)
--- NOTE | 2019-05-14 19:03 | Anesthesiology Consultation ---
Date of Service May 14, 2019 Assessment & Plan (1) Encounter for pre-operative examination: Chart Review Chart Review: Acceptable Risk for Surgery (surgery is an emergency) and Patient NOT seen in Pre Admission Testing Consults Requested none History Surgery Operation Date: 05/14/19 19:00 Proposed Procedures p Inguinal Hernia Repair(Right) - Matheus Pham MD Height/Weight Height: 6 ft 1 in Weight: 99.4 kg Allergies Allergy/AdvReac Type Severity Reaction Status Date / Time latex Allergy Unknown LOCAL SKIN Verified 05/14/19 17:23 IRRITATION lisinopril Allergy Unknown hyperkalemi Verified 05/14/19 17:23 a sulfamethoxazole AdvReac increases Verified 05/14/19 17:23 [From Bactrim] potassium trimethoprim [From Bactrim] AdvReac increases Verified 05/14/19 17:23 potassium Medications Home Medications Medication Instructions Recorded Confirmed Last Taken ascorbic acid (vitamin C) 1,000 mg PO QAM 10/08/18 05/14/19 03/02/19 garlic 1,000 mg PO QAM 10/08/18 05/14/19 03/02/19 multivitamin 1 tab PO QAM 10/08/18 05/14/19 03/02/19 pravastatin 10 mg PO QAM 10/08/18 05/14/19 03/02/19 febuxostat [Uloric] 40 mg PO QAM 12/14/18 05/14/19 03/02/19 cholecalciferol (vitamin D3) 1,000 1,000 units PO QAM 01/17/19 05/14/19 03/03/19 unit capsule fluvoxamine 100 mg PO HS 03/03/19 05/14/19 03/02/19 apixaban 5 mg tablet 5 mg PO BID #180 tab 04/06/19 05/14/19 Unknown ipratropium bromide 42 mcg (0.06 2 spray INTRANASAL BID #15 ml 04/07/19 05/14/19 Unknown %) nasal spray aspirin 81 mg tablet,delayed 81 mg PO QAM 04/27/19 05/14/19 Unknown release metoprolol tartrate 25 mg tablet 12.5 mg PO AMPM tab 04/27/19 05/14/19 Unknown cefuroxime axetil 500 mg tablet 500 mg PO BID #20 tab 05/13/19 05/14/19 Unknown amlodipine 5 mg PO QAM 05/14/19 05/14/19 Unknown famotidine 40 mg PO QAM 05/14/19 05/14/19 Unknown gabapentin See Rx Instructions mg PO 05/14/19 05/14/19 Unknown DIRECTED glipizide 5 mg PO QAM 05/14/19 05/14/19 Unknown lisinopril 5 mg PO QAM 05/14/19 05/14/19 Unknown omega-3 fatty acids-fish oil [Fish 2,400 cap PO QAM 05/14/19 05/14/19 Unknown Oil] plant stanol amarjit [Cholest Off] 0 mg PO BID 05/14/19 05/14/19 Unknown torsemide 10 mg PO QAM 05/14/19 05/14/19 Unknown vit C,W-Vj-mcwqn-lutein-zeaxan 1 tab PO BID 05/14/19 05/14/19 Unknown [PreserVision AREDS-2] NPO Date Last Intake of Fluids: 05/14/19 Time Last Intake of Fluids: 12:00 Date Last Intake of Solids: 05/14/19 Time Last Intake of Solids: 12:00 Past Medical History Medical History (Updated 05/14/19 @ 19:06 by Pavan Tamayo MD) Afib Arthritis Cataracts, both eyes RIGHT EYE BEING DONE FIRST Coronary arteriosclerosis Diabetes Diastolic dysfunction GERD (gastroesophageal reflux disease) High cholesterol History of stress test 2009 [place] D/T PASSED OUT WENT TO [facility]. 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 Hx of 09/2018 - SEEN IN ED - HAD CT OF HEAD - NEGATIVE Mitral regurgitation Normal pressure hydrocephalus Peripheral artery disease LEFT LEG Renal insufficiency Past Family History Family History Father Myocardial infarction Mother Gout CHF (congestive heart failure) Past Surgical History Surgical History History of back surgery L3-L4 History of left hip replacement History of parathyroidectomy (Resolved) PARTIAL History of right hip replacement X2 Hx of hernia repair Social History Smoking Status: Former smoker tobacco type: cigarettes Do You Dip or Chew Tobacco: No Smoking End Date: 1984 Hx Alcohol Use: No Hx Substance Use: No substance use type: does not use Physical Exam Vital Signs Last Vital Signs Temp 37 C 05/14/19 16:26 Pulse 74 05/14/19 18:30 Resp 26 H 05/14/19 18:30 BP 160/98 H 05/14/19 18:12 Pulse Ox 95 05/14/19 18:30 Testing Laboratory Results 05/14/19 16:16 05/14/19 16:16 PT 13.9 Seconds (9.0-12.0) H 05/14/19 16:16 INR 1.4 (0.9-1.1) H 05/14/19 16:16 Electrocardiogram Date: 03/04/19 Findings: + RBBB and + T wave inversion (lateral ischemia) Afib, rate 52, Chest X-Ray Date: 05/14/19 SINGLE VIEW CHEST CLINICAL HISTORY: Dyspnea. FINDINGS: An AP, portable, upright chest radiograph is compared to study dated 03/03/2019. The examination is degraded by portable technique and patient ro tation. The heart is enlarged noting atherosclerotic calcification of the thoracic aorta. The pulmonary vasculature is noncongested. Chronic elevation of left hemidiaphragm is similar to previous. There is bibasilar airspace consolidation, left greater than right. Airspace opacities are also seen in the right midlung. No large pleural effusion or pneumothorax is seen. The skeletal structures are osteopenic. The bony thorax is grossly intact. IMPRESSION: 1. There is bibasilar airspace consolidation, left greater than right. Correlate clinically for evidence of pneumonia/aspiration pneumonitis. Radiographic follow-up to resolution is recommended. 2. Cardiomegaly without radiographic evidence of congestive failure Electronically signed by: Tio Cole M.D. 05/14/2019 5:04 PM Dictated: 05/14/191701 Transcribed: 05/14/191701 Echocardiogram Date: 03/03/19 EF: 55-60 Other Findings: + atrial enlargement (bilateral) Valvular Disease: + MR (moderate) elevated RVSP Stress Test Date: 04/05/19 Findings: + WNL Resting EF: 67
[2019-05-14] MEDS ORDERED: ONDANSETRON INJ 2 MG/ML 2 ML VIAL IV STA (19:06)
[2019-05-14] MEDS ORDERED: ONDANSETRON INJ 2 MG/ML 2 ML VIAL ONE (19:23)
[2019-05-14] MEDS ORDERED: FUROSEMIDE 40 MG/4 ML VIAL IV ONE (19:24)
--- NOTE | 2019-05-14 19:24 | XRay Report ---
SINGLE VIEW CHEST CLINICAL HISTORY: Aspiration. FINDINGS: An AP, portable, upright chest radiograph is compared to study performed earlier the same d ay 05/14/2019. Correlation is made with abdominal CT performed earlier the same day. The examination is degraded by portable technique and patient rotation. The heart is enlarged noting atherosclerotic calcification of the thoracic aorta. The pulmonary vasculature is noncongested. Chronic elevation of left hemidiaphragm is similar to previous. There is bibasilar airspace consolidation. Small pleural e ffusions are noted. No pneumothorax is seen. The skeletal structures are osteopenic. The bony thorax is grossly intact. IMPRESSION: 1. There is bibasilar airspace consolidation and small pleural effusions. This is unchanged from stud y performed 2.5 hours previously. Radiographic follow-up to resolution is recommended. 2. Cardiomegaly without radiographic evidence of congestive failure. Electronically signed by: Tio Cole M.D. 05/14/2019 7:22 PM
[2019-05-14 19:44] LABS: iSTAT Arterial Blood Gas HCO3 24 meg/L (19-24); iSTAT Arterial Blood Gas pCO2 50 mmHg (35-46); iSTAT Arterial Blood Gas pH 7.29 (7.35-7.45); iSTAT Arterial Blood Gas pO2 67 mmHg (80-95); iSTAT Carbon Dioxide 26 mEq/l (24-31)
--- NOTE | 2019-05-14 21:18 | Post Operative Brief Note ---
Immediate Post Op Note v1 Date of Surgery May 14, 2019 Pre & Post Diagnosis Operation Date: 05/14/19 19:00 Pre-Op Diagnosis: Incarcerated right inguinal hernia, strangulated bowel Post-Op Diagnosis: Incarcerated right inguinal hernia, strangulated bowel I identified the patient and participated in the time-out.: Yes Procedure Operation Date: 05/14/19 19:00 Actual Procedures p Incarcerated right inguinal hernia repair, aspiration of right groin, small bowel resection(Right) - Matheus Pham MD Surgeon Matheus Pham MD Supervisor [employer] none Estimated Blood Loss 50 Findings See Below (necrotic small bowel within hernia sac) Drains Toribio Catheter
[2019-05-14] MEDS ORDERED: MIDAZOLAM HCL 1 MG/ML 2ML VIAL ONE (21:35)
[2019-05-14] MEDS ORDERED: MIDAZOLAM HCL 5 MG/ML VIAL IV STA (21:35)
[2019-05-14] MEDS ORDERED: ALBUT/IPRATROP 3MG/0.5MG NEB 3 ML VIAL INH PRN (21:45)
[2019-05-14] MEDS ORDERED: ICU PROTOCOL FOR HYPERGLYCEMIA PRN ×2 (21:45→21:46)
[2019-05-14] MEDS ORDERED: SODIUM CHLORIDE 0.9% 1000ML 1,000 ML IV SCH (21:46)
[2019-05-14] MEDS ORDERED: HydrALAZINE HCL 20 MG/ML VIAL IV PRN (21:46)
[2019-05-14] MEDS ORDERED: MoRPHine SULFATE 4 MG/ML 1 ML CARP\\VIAL IV PRN (21:46)
[2019-05-14] MEDS ORDERED: FUROSEMIDE 40 MG/4 ML VIAL IV STA (21:46)
[2019-05-14] MEDS ORDERED: FUROSEMIDE 40 MG in SYRINGE 0 ML IV ONE ×2 (22:00→23:15)
--- NOTE | 2019-05-14 22:00 | Anesthesiology Progress Note ---
Date of Service May 14, 2019 Anesthesia Post Procedure Vital Signs Vital Signs: Temp Pulse Pulse Resp BP Pulse Ox 05/14/19 19:29 94 H 24 94 05/14/19 19:28 86 26 H 92 05/14/19 18:46 81 L 05/14/19 18:30 74 26 H 95 05/14/19 18:12 76 19 160/98 H 96 05/14/19 18:11 18 05/14/19 18:00 74 24 05/14/19 17:30 76 25 H 98 05/14/19 17:24 80 21 94 05/14/19 16:57 81 22 90 05/14/19 16:31 94 05/14/19 16:26 37 C 88 22 170/69 H 87 L 05/14/19 16:09 77 25 H 170/69 H 97 Notes Mental Status: see notes below Patient Amnestic to Procedure: Yes Nausea / Vomiting: adequately controlled Pain: adequately controlled Airway Patency, RR, SpO2: see Notes below BP & HR: stable & adequate and see Notes below Hydration State: stable & adequate and see Notes below Anesthetic Complications: see Notes below Notes: The patient is a 78 y/o male who underwent a small bowel resection and R inguinal hernia repair due to necrotic bowel from an incarcerated hernia. The patient has significant PMH of afib, mitral regurgitation, diastolic heart failure, CAD, PAD, HTN, DM, sleep apnea, normal pressure hydrocephalus, and kidney disease. The patient had been having pain for the past several days according to his . He began vomiting frequently over the past day and was noted to have an audible cough last night. He was brought to the ER by his . He was witnessed to aspirate in the ER and was found to be in respiratory distress. A CXR in the ER showed bilateral opacities consistent with aspiration. He was transferred to the PACU holding area on 15 L oxygen nonrebreather mask where Dr. Dorothy Tamayo and I met the patient. He had audible rhonchi bilaterally. The patient was alert and oriented but confused. He was placed on monitors in the PACU area where his SpO2 was found to be in the mid 80s despite being on a nonrebreather mask. A brief history was obtained from his who signed consent and he was quickly taken to the OR due to worsening respiratory depression. He was transferred to the OR table on oxygen while SpO2 went to the low 80s. RSI was initiated with propofol and succinylcholine. Immediately after the induction medications were given the patient was noted to have brown fluid in his mouth. He was immediately suctioned and easily intubated with the Glidescope and a 8.0 Shiley ETT. The patient's ETT was suctioned out. Soon after intubation the patient's SpO2 francisca to 100%. Tio Augustine was called and came from the ICU to assist with the patient's care. An NG tube was placed and 2 liters of brown fluid was suctioned out. A fiberoptic bronchoscope was used to attempt to suction out the bronchi however minimal fluid was aspirated from the lungs and the patient did not tolerate being disconnected from the ventilator. The patient was placed on low tidal volume/high PEEP ventilation per the [employer] protocol. An arterial line was placed to monitor the blood pressure. The patient did require multiple doses of phenylephrine during the procedure to maintain his SBP >100 but was weened off phenylephrine by the end of the procedure. He received 2000 ml of LR during the case and had 50 ml EBL and 20 ml urine output. The patient was transferred to the ICU intubated on full monitors. An Ambu bag with 15 ml peep valve was used during the transport. He remained stable on transport with SBP in the 110s and SpO2 98%. He was placed on the ventilator in the ICU. BSG was found to be 115. A full sign out was given to Dion Scherer.
[2019-05-14] MEDS ORDERED: FAMOTIDINE 20 MG in SYRINGE 3 ML IV ONE (22:15)
[2019-05-14] MEDS: PROPOFOL 1,000 MG/100 ML VIAL IV SCH (22:19)
[2019-05-14 22:22] LABS: Hematocrit (blood only) 29.1 % (42-52); Hemoglobin 9.5 g/dL (14.0-18.0); Mean Corpuscular Hemoglobin 30.5 pg (25-34); Mean Corpuscular Volume 93.6 fL (80-100); Mean Platelet Volume 10.3 fL (7.4-10.4); Platelet Count 174 K/uL (130-400); RDW Coefficient of Variation 14.5 % (11.5-14.5); RDW Standard Deviation 49.7 fL (36.4-46.3); Red Blood Count 3.11 M/uL (4.7-6.1); White Blood Count 3.74 K/uL (4.8-10.8)
[2019-05-14 22:31] LABS: iSTAT Allen Test Pass; iSTAT Arterial Blood Gas HCO3 23 meg/L (19-24); iSTAT Arterial Blood Gas pCO2 77 mmHg (35-46); iSTAT Arterial Blood Gas pH 7.09 (7.35-7.45); iSTAT Arterial Blood Gas pO2 62 mmHg (80-95); iSTAT Carbon Dioxide 26 mEq/l (24-31); iSTAT FiO2 100 %; iSTAT Site Art Line
[2019-05-14 22:39] LABS: BUN Creatinine Ratio 15.5 (10-20); Calcium 8.2 mg/dl (8.5-10.1); Creatinine Clr Calc Pharmacy 20.6 ml/min; Est GFR (African American) 17.1; Est GFR (Non-African American) 14.8; Potassium 4.7 mmol/L (3.5-5.1)
--- NOTE | 2019-05-14 22:40 | XRay Report ---
SINGLE VIEW CHEST CLINICAL HISTORY: Respiratory failure. Aspiration. Postoperative examination. FINDINGS: 3 AP, portable, supine chest radiographs are compared to studies performed earlier the same day 05/14/2019. Correlation is made with abdominal CT performed earlier the same day. The examinatio n is degraded by portable technique and patient rotation. An endotracheal tube has been placed. The t ip projects 4 cm above the jl. An enteric tube has been placed and terminates below the diaphragm . The heart is enlarged noting atherosclerotic calcification of the thoracic aorta. Mild pulmonary va scular congestion is suspected. There is bibasilar airspace consolidation. Small pleural effusions ar e noted. No pneumothorax is seen. The skeletal structures are osteopenic. The bony thorax is grossly intact. IMPRESSION: 1. Endotracheal and enteric tubes have been placed as above. 2. Again seen is bibasilar airspace consolidation and small pleural effusions. Consolidation is uncha nged to modestly increased from today's earlier examinations. 3. Cardiomegaly. Question mild pulmonary vascular congestion. Electronically signed by: Tio Cole M.D. 05/14/2019 10:39 PM
[2019-05-14 22:42] LABS: Phosphorus 5.6 mg/dl (2.5-4.9)
[2019-05-14] MEDS: fentaNYL DRIP 1,250 MCG/250 ML BAG IV SCH (22:48)
[2019-05-14 22:50] LABS: Mean Corpuscular Hgb Conc 32.6 g/dL (32-36)
[2019-05-14 22:51] LABS: Dohle Bodies 1+; Eosinophils # (auto) 0.01 K/uL (0-0.5); Eosinophils % (auto) 0.3 %; Giant Platelets 2+; Lymphocytes # (auto) 1.05 K/uL (1.2-3.4); Lymphocytes % (auto) 28.1 %; Monocytes # (auto) 0.12 K/uL (0.11-0.59); Monocytes % (auto) 3.2 %; Neutrophils # (auto) 2.56 K/uL (1.4-6.5); Neutrophils % (auto) 68.4 %; Toxic Vacuolation 2+
--- NOTE | 2019-05-14 22:53 | Operative Report ---
DATE OF OPERATION: 05/14/2019 PREOPERATIVE DIAGNOSIS: Incarcerated right inguinal hernia with small-bowel obstruction and possible strangulated bowel. POSTOPERATIVE DIAGNOSES: 1. Strangulated right inguinal hernia with necrotic loop of small bowel. 2. Aspiration intraoperatively. PROCEDURE PERFORMED: 1. Right groin exploration with primary open repair of right inguinal hernia. 2. Small bowel resection. SURGEON: Matheus Pham MD TAX REVENUE OFFICER: None. ANESTHESIA: General endotracheal with 0.5% Marcaine with epinephrine local. ESTIMATED BLOOD LOSS: 50 mL. COMPLICATIONS: None. SPECIMENS: Small bowel resection sent for pathologic evaluation. INDICATIONS FOR PROCEDURE: This is a 78-year-old white male who came into the Emergency Room complaining of 3 days of nausea and vomiting. He had some increasing pain in his right groin this morning. He was seen in the ED, underwent evaluation including a CT scan which showed an obvious right inguinal hernia with incarcerated small bowel with questionable findings of necrosis in the bowel. He also had some portal venous gas. By chest x-ray, it appeared he also may have aspirated. He was seen in the ED, initially was comfortable, complaining of some right groin pain. There was an obvious incarcerated hernia by exam. I called the OR for immediate exploration in the OR. I talked to him in detail about the risks of the procedure including recurrence of the hernia which is likely in an acute setting like this, aspiration, bleeding since he had taken Eliquis last night. We also talked about the risks of small bowel resection if there is necrotic bowel and possibility of formal exploration from the midline incision. He understood all this and wished to proceed. When he was brought back into the OR and intubation was attempted, he aspirated. An NG tube was placed and a large amount of gastric contents, which was removed. A Toribio was also placed. DESCRIPTION OF PROCEDURE: Once the patient was prepped and draped in normal sterile fashion, a right groin incision was made and dissection was taken down through the various tissues which were distorted since the incarceration had been chronic for the last 3 days. This was taken down through the fascia of the external oblique which was attenuated. The hernia sac was identified. This was opened sharply with Saúl scissors. There was a large amount of bloody fluid within the initial sac. This was then opened up down to the ring where a small loop of necrotic bowel was noted. The ring was extended medially and laterally to help deliver the small bowel which was brought back up. Cerulean clamps were placed on the proximal and distal bowel. The distal bowel was decompressed. The proximal bowel was dilated up to about 3 or 4 cm. This was watched for a while as the groin was irrigated out. The testicle was identified, was normal in appearance. The vas and the blood supply was circled with a [place] drain. Attention was then turned to the hernia sac which was resected down to the internal ring. The bowel at this time was rechecked. There was a small loop probably 3-4 cm in length which was necrotic and did not pink up. Therefore, a CEDRICK stapler was used to transect this proximally and distally. The mesentery was taken down between clamps and tied and secured with silk sutures. The portion of small bowel was sent for pathologic evaluation. A [id number] stapled anastomosis was created and closed with another CEDRICK load. The mesenteric window was closed with a Vicryl suture. The small bowel had a nice patent anastomosis and appeared pink and healthy. This was then placed back into the peritoneal cavity. The right groin was then irrigated out again. Because of the infection and necrosis of the small bowel, a mesh was not placed. An interrupted #1 PDS suture was used to close from the inguinal ligament to the conjoined tendon. This was done to the internal ring and a recreated internal ring was made which was big enough for the cord contents, but not so large that the recurrence of hernia would come back. Once this was completed, the testicle was placed back into the scrotum. The Oracio's fascia was closed with a running Vicryl suture. The skin was closed with leslie. He tolerated the procedure well. He maintained his blood pressure and heart rate. He will remain intubated and taken to the ICU for his postoperative care secondary to the aspiration and subsequent pneumonia. I attest to the content of the Intraoperative Record and any orders documented therein. Any exception s are noted below.
--- NOTE | 2019-05-14 23:10 | Critical Care Consultation ---
Date of Consultation May 14, 2019 Assessment & Plan (1) Acute respiratory distress syndrome (ARDS): Reason Critically Ill: 78-year-old male postop for small bowel resection and hernia repair, still intubated following aspiration pneumonitis and now in ARDS Neuro - Sedation: Propofol Analgesia: Fentanyl Cardiac - CHFpatient with known diastolic heart failure, last echocardiogram 03/10 with EF 55 to 60% -CXR consistent with cardiopulmonary congestion -We will give IV fluids cautiously, will give IV Lasix as needed CADcontinue ASA, pravastatin, PAFwe will hold Eliquis for now following GI surgery, will continue when appropriate -Holding MTP as patient blood pressures currently soft Respiratory - Aspiration pneumonitis/ARDS/hypoxic respiratory failurepatient reportedly vomited and became hypoxic and was soon intubated, left intubated postop -Suspected ARDS following aspiration pneumonitis, continue ARDS net protocol with goal of high PEEP low FiO2, low tidal volumes -Continue IV glucocorticoids -Continue Zosyn empirically -Trend ABGs and adjust settings appropriately, current vent settings AC VC 22/450/14/80 percent -Continue nebs as needed GI - Incarcerated inguinal hernia/SBOstatus post inguinal hernia repair and small bowel resection -Abdomen now soft on exam, hypoactive bowel sounds, will monitor bowel activity -We will continue lavaged with NGT, intermittent low wall suction, and keep n.p.o. for now -Follow general surgery recommendations -Lactate elevated postop, continue to trend -CPK negative postop -Continue Zosyn and Flagyl RENAL/LYTES - DAVEY on CKDcreatinine elevated to 3.8 on admission, baseline 2.2 from previous admissions -Likely prerenal following dehydration/nausea vomiting prior to admission -We will continue soft IV fluid resuscitation with consideration to diagnosis of respiratory failure and CHF -Continue to trend creatinine -Avoid nephrotoxins -Consider consult nephrology if no improvement -Monitor I's and O's - Foleystrict I's and O's ENDO - DM type IIlast hemoglobin A1c from 03/10 of 5.6, well controlled on oral medications -Will transition orals to sliding scale for now -Follow ICU hyperglycemic protocol HEME - Patient anemic on prior visits and H&H currently stable, will monitor with r outine CBCs and transfuse if necessary ID - Empiric Zosyn and Flagyl WBC within normal limits, lactate elevated UA negative, blood cultures this a.m. CXR suggestive of aspiration pneumonia LINES/IV ACCESS - Peripheral IVs, ETT, NGT, Toribio DVT PROPHYLAXIS - SCDs, holding anticoagulant following surgery I have personally spent 65 minutes of critical care time in the direct management of this patient. This is a life/limb threatening event. This includes time spent evaluating patient, direct bedside care, chart review, placing orders, interpretation of diagnostic studies, discussion with consultants, patient, and family members, as well as other required patient management activities. This time is exclusive of all separately billable procedures, and teaching time and separate from and in addition to any other critical care service time. Thank you for allowing us to participate in the care of this patient. Please refer to my attending physician's documentation for any further recommendations. (2) SBO (small bowel obstruction): (3) Incarcerated inguinal hernia: (4) Acute kidney injury: (5) Type 2 diabetes mellitus: (6) Pneumonitis due to inhalation of food or vomitus: Supervising Physician Co-Signing Physician Notes I have personally evaluated and examined this patient. I agree with assessment and plan of Lelia ZAPATA. Refer to my documentation History of Present Illness Attending Physician: Naseem May MD History of Present Illness 78-year-old male with past medical history of CAD, PAF (on Eliquis), NPH, CKD stage III, chronic diastolic heart failure, DM type II, NORBERT, HTN who presented to the emergency department with complaints of abdominal pain for 3 days and been feeling sick since yesterday. He has been having nausea since yesterday and started vomiting earlier today. He also has a history of right inguinal hernia repair was having distention in the right groin. CT imaging showed that patient had a incarcerated inguinal hernia and small bowel obstruction. He was scheduled to go emergent repair in the OR, however in the emergency department, he vomited and aspirated and desaturated. He was intubated soon after in the OR and NGT was placed to wall suction and 1.5 L of brown liquid was suctioned from the abdomen. Patient underwent right groin exploration with primary open repair of right inguinal hernia and small bowel resection. He was left intubated postop considering high oxygen demand and suspected aspiration pneumonitis and transferred to ICU. Patient now being managed per ARDS protocol in ICU. Allergies Allergy/AdvReac Type Severity Reaction Status Date / Time latex Allergy Unknown LOCAL SKIN Verified 05/14/19 17:23 IRRITATION lisinopril Allergy Unknown hyperkalemi Verified 05/14/19 17:23 a sulfamethoxazole AdvReac increases Verified 05/14/19 17:23 [From Bactrim] potassium trimethoprim [From Bactrim] AdvReac increases Verified 05/14/19 17:23 potassium Home Medications Home Medications Medication Instructions Recorded Confirmed Type ascorbic acid (vitamin C) 1,000 mg PO QAM 10/08/18 05/14/19 History garlic 1,000 mg PO QAM 10/08/18 05/14/19 History multivitamin 1 tab PO QAM 10/08/18 05/14/19 History pravastatin 10 mg PO QAM 10/08/18 05/14/19 History febuxostat [Uloric] 40 mg PO QAM 12/14/18 05/14/19 History cholecalciferol (vitamin D3) 1,000 1,000 units PO QAM 01/17/19 05/14/19 History unit capsule fluvoxamine 100 mg PO HS 03/03/19 05/14/19 History apixaban 5 mg tablet 5 mg PO BID #180 tab 04/06/19 05/14/19 Rx ipratropium bromide 42 mcg (0.06 2 spray INTRANASAL BID #15 ml 04/07/19 05/14/19 Rx %) nasal spray aspirin 81 mg tablet,delayed 81 mg PO QAM 04/27/19 05/14/19 History release metoprolol tartrate 25 mg tablet 12.5 mg PO AMPM tab 04/27/19 05/14/19 History cefuroxime axetil 500 mg tablet 500 mg PO BID #20 tab 05/13/19 05/14/19 Rx amlodipine 5 mg PO QAM 05/14/19 05/14/19 History famotidine 40 mg PO QAM 05/14/19 05/14/19 History gabapentin See Rx Instructions mg PO 05/14/19 05/14/19 History DIRECTED glipizide 5 mg PO QAM 05/14/19 05/14/19 History lisinopril 5 mg PO QAM 05/14/19 05/14/19 History omega-3 fatty acids-fish oil [Fish 2,400 cap PO QAM 05/14/19 05/14/19 History Oil] plant stanol amarjit [Cholest Off] 0 mg PO BID 05/14/19 05/14/19 History torsemide 10 mg PO QAM 05/14/19 05/14/19 History vit C,U-Fz-pnefx-lutein-zeaxan 1 tab PO BID 05/14/19 05/14/19 History [PreserVision AREDS-2] Patient History Medical History Afib Arthritis Cataracts, both eyes RIGHT EYE BEING DONE FIRST Coronary arteriosclerosis Diabetes Diastolic dysfunction GERD (gastroesophageal reflux disease) High cholesterol History of stress test 2009 [place] D/T PASSED OUT WENT TO [facility]. 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 Required: No Beliefs That Will Affect Care: None Current Living Situation: Spouse Other Information That Helps Us Care for You: No Feels Safe at Home: Yes Safety Concerns: Feels Safe At This Time Smoking Status: Former smoker Tobacco Type: cigarettes ; Do You Dip or Chew Tobacco: No ; Smoking End Date: 1984 ; Second Hand Exposure: No ; Tobacco Cessation Education Requested by Patient: No Hx Alcohol Use: No Hx Substance Use: No Review of Systems Review of Systems: Unobtainable due to endotracheal tube and Unobtainable due to reduced consciousness Physical Exam Constitutional: Intubated and sedated Eyes: PERRL, conjunctivae normal, anicteric sclerae ENMT: external ear and nose normal, oropharynx normal Endotracheal tube 24 cm at the lips Neck: trachea midline, no thyromegaly Respiratory: Coarse crackles auscultated bilaterally in all lung mckeon, no wheezes, symmetrical chest wall movement Cardiovascular: RRR, no murmur, no edema Heart Sounds: normal S1 and normal S2 Vessels: no JVD Extremities: normal capillary refill Gastrointestinal (Abdomen): Inspection/Auscultation: + hypoactive bowel sounds; abdomen not distended Surgical incision to right groin dressed with sterile gauze, unable to assess tenderness secondary to paralytics and sedation Neurologic: Unable to assess Psychiatric: Unable to assess Genitourinary: Indwelling Toribio catheter present Results & Data Vital Signs (Past 12 Hours) Vital Signs Temp Pulse Pulse Resp BP BP Pulse Ox 05/14/19 22:30 16 05/14/19 21:43 36.8 C 78 84 L 05/14/19 21:40 73 75 14 118/52 L 118/52 L 92 05/14/19 21:35 36.6 C 73 14 133/54 L 90 05/14/19 21:30 75 14 115/52 L 97 05/14/19 19:29 94 H 24 94 05/14/19 19:28 86 26 H 92 05/14/19 18:46 81 L 05/14/19 18:30 74 26 H 95 05/14/19 18:12 76 19 160/98 H 96 05/14/19 18:11 18 05/14/19 18:00 74 24 05/14/19 17:30 76 25 H 98 05/14/19 17:24 80 21 94 05/14/19 16:57 81 22 90 05/14/19 16:31 94 05/14/19 16:26 37 C 88 22 170/69 H 87 L 05/14/19 16:09 77 25 H 170/69 H 97 Laboratory Results Laboratory Results - last 24 hr 05/14/19 05/14/19 05/14/19 16:16 16:16 16:16 WBC 8.45 RBC 3.64 L Hgb 11.3 L Hct 33.2 L MCV 91.2 MCH 31.0 MCHC 34.0 RDW Std Deviation 48.2 H RDW Coeff of Ekta 14.4 Plt Count 186 MPV 10.2 Immature Gran % (Auto) 0.1 Neut % (Auto) 71.7 Lymph % (Auto) 22.8 Izard % (Auto) 5.4 Eos % (Auto) 0.0 Baso % (Auto) 0.0 Immature Gran # (Auto) 0.01 Neut # (Auto) 6.05 Lymph # (Auto) 1.93 Izard # (Auto) 0.46 Eos # (Auto) 0.00 Baso # (Auto) 0.00 Toxic Vacuolation Dohle Bodies Giant Platelets 1+ PT 13.9 H INR 1.4 H Sample Site POC pH POC pCO2 POC pO2 POC HCO3 POC Total CO2 POC Base Excess POC ABG O2 Sat Jeffery Test O2 Delivery Device POC O2 Rate POC FiO2 Tidal Volume PEEP Sodium 136 Potassium 4.5 Chloride 100 Carbon Dioxide 22 Anion Gap 14.0 H BUN 54 H Creatinine 3.83 H D Est Cr Clr Drug Dosing 20.0 Est GFR ( Amer) 16.5 Est GFR (Non-Af Amer) 14.3 BUN/Creatinine Ratio 14.2 Glucose 185 H POC Glucose Lactate Calcium 9.4 Phosphorus Magnesium Total Bilirubin 1.1 H AST 51 H ALT 47 Alkaline Phosphatase 106 Total Creatine Kinase Troponin I 0.037 NT-Pro-B Natriuret Pep 8066 H Total Protein 7.3 Albumin 3.2 L Globulin 4.1 H Albumin/Globulin Ratio 0.8 L Lipase 228 Nasal Screen MRSA (PCR) 05/14/19 05/14/19 05/14/19 19:27 21:43 21:50 WBC RBC Hgb Hct MCV MCH MCHC RDW Std Deviation RDW Coeff of Ekta Plt Count MPV Immature Gran % (Auto) Neut % (Auto) Lymph % (Auto) Izard % (Auto) Eos % (Auto) Baso % (Auto) Immature Gran # (Auto) Neut # (Auto) Lymph # (Auto) Izard # (Auto) Eos # (Auto) Baso # (Auto) Toxic Vacuolation Dohle Bodies Giant Platelets PT INR Sample Site POC pH 7.29 L POC pCO2 50 H POC pO2 67 L POC HCO3 24 POC Total CO2 26 POC Base Excess -2.0 POC ABG O2 Sat 91.0 Jeffery Test O2 Delivery Device POC O2 Rate POC FiO2 Tidal Volume PEEP Sodium Potassium Chloride Carbon Dioxide Anion Gap BUN Creatinine Est Cr Clr Drug Dosing Est GFR ( Amer) Est GFR (Non-Af Amer) BUN/Creatinine Ratio Glucose POC Glucose 115 H Lactate Calcium Phosphorus Magnesium Total Bilirubin AST ALT Alkaline Phosphatase Total Creatine Kinase Troponin I NT-Pro-B Natriuret Pep Total Protein Albumin Globulin Albumin/Globulin Ratio Lipase Nasal Screen MRSA (PCR) Pending 05/14/19 05/14/19 05/14/19 22:13 22:13 22:13 WBC 3.74 L RBC 3.11 L Hgb 9.5 L Hct 29.1 L MCV 93.6 MCH 30.5 MCHC 32.6 RDW Std Deviation 49.7 H RDW Coeff of Ekta 14.5 Plt Count 174 MPV 10.3 Immature Gran % (Auto) 0.0 Neut % (Auto) 68.4 Lymph % (Auto) 28.1 Izard % (Auto) 3.2 Eos % (Auto) 0.3 Baso % (Auto) 0.0 Immature Gran # (Auto) 0.00 Neut # (Auto) 2.56 Lymph # (Auto) 1.05 L Izard # (Auto) 0.12 Eos # (Auto) 0.01 Baso # (Auto) 0.00 Toxic Vacuolation 2+ Dohle Bodies 1+ Giant Platelets 2+ PT INR Sample Site POC pH POC pCO2 POC pO2 POC HCO3 POC Total CO2 POC Base Excess POC ABG O2 Sat Jeffery Test O2 Delivery Device POC O2 Rate POC FiO2 Tidal Volume PEEP Sodium 136 Potassium 4.7 Chloride 104 Carbon Dioxide 24 Anion Gap 8.0 BUN 58 H Creatinine 3.72 H Est Cr Clr Drug Dosing 20.6 Est GFR ( Amer) 17.1 Est GFR (Non-Af Amer) 14.8 BUN/Creatinine Ratio 15.5 Glucose 103 H POC Glucose Lactate 4.4 H* Calcium 8.2 L Phosphorus 5.6 H Magnesium 2.0 Total Bilirubin AST ALT Alkaline Phosphatase Total Creatine Kinase 141 Troponin I NT-Pro-B Natriuret Pep Total Protein Albumin Globulin Albumin/Globulin Ratio Lipase Nasal Screen MRSA (PCR) 05/14/19 05/14/19 22:17 23:18 WBC RBC Hgb Hct MCV MCH MCHC RDW Std Deviation RDW Coeff of Ekta Plt Count MPV Immature Gran % (Auto) Neut % (Auto) Lymph % (Auto) Izard % (Auto) Eos % (Auto) Baso % (Auto) Immature Gran # (Auto) Neut # (Auto) Lymph # (Auto) Izard # (Auto) Eos # (Auto) Baso # (Auto) Toxic Vacuolation Dohle Bodies Giant Platelets PT INR Sample Site Art Line Art Line POC pH 7.09 L* 7.16 L* POC pCO2 77 H 72 H POC pO2 62 L 88 POC HCO3 23 26 H POC Total CO2 26 28 POC Base Excess -6.0 -3.0 POC ABG O2 Sat 80.0 L 93.0 Jeffery Test Pass NA O2 Delivery Device Ventilator Ventilator POC O2 Rate 14 16 POC FiO2 100 80 Tidal Volume 400 450 PEEP 12 14 Sodium Potassium Chloride Carbon Dioxide Anion Gap BUN Creatinine Est Cr Clr Drug Dosing Est GFR ( Amer) Est GFR (Non-Af Amer) BUN/Creatinine Ratio Glucose POC Glucose Lactate Calcium Phosphorus Magnesium Total Bilirubin AST ALT Alkaline Phosphatase Total Creatine Kinase Troponin I NT-Pro-B Natriuret Pep Total Protein Albumin Globulin Albumin/Globulin Ratio Lipase Nasal Screen MRSA (PCR) Coding Level of Care Code Critical Care 1st 30-74 mins Diagnoses Acute respiratory distress syndrome (ARDS) J80 SBO (small bowel obstruction) K56.609 Incarcerated inguinal hernia K40.30 Acute kidney injury N17.9 Type 2 diabetes mellitus E11.9 Pneumonitis due to inhalation of food or vomitus J69.0
[2019-05-14] MEDS: NOREPINEPHRINE BIT INJ 8 MG in DEXTROSE 5% 500 ML IV SCH (23:14)
[2019-05-14] MEDS: PIPERACILLIN/TAZOBACTAM 3.375 GM in DEXTROSE 5% 100 ML IV SCH (23:27)
[2019-05-14 23:34] LABS: iSTAT Arterial Blood Gas HCO3 26 meg/L (19-24); iSTAT Arterial Blood Gas pCO2 72 mmHg (35-46); iSTAT Arterial Blood Gas pH 7.16 (7.35-7.45); iSTAT Arterial Blood Gas pO2 88 mmHg (80-95); iSTAT Carbon Dioxide 28 mEq/l (24-31); iSTAT FiO2 80 %; iSTAT Site Art Line
[2019-05-15 00:54] LABS: iSTAT Arterial Blood Gas HCO3 23 meg/L (19-24); iSTAT Arterial Blood Gas pCO2 59 mmHg (35-46); iSTAT Arterial Blood Gas pH 7.19 (7.35-7.45); iSTAT Arterial Blood Gas pO2 74 mmHg (80-95); iSTAT Carbon Dioxide 24 mEq/l (24-31); iSTAT FiO2 80 %; iSTAT Site Art Line
[2019-05-15] MEDS ORDERED: SODIUM CHLORIDE 0.9% 500 ML IV SCH (02:30)
[2019-05-15] MEDS: NOREPINEPHRINE BIT INJ 8 MG in DEXTROSE 5% 500 ML IV SCH ×2 (02:57→18:36)
[2019-05-15] MEDS: NORMOSOL-R 1,000 ML IV SCH ×3 (02:59→20:56)
[2019-05-15] MEDS ORDERED: methylPREDNISolone 60 MG in SYRINGE 0 ML IV SCH (04:00)
[2019-05-15 04:39] LABS: Hemoglobin 9.8 g/dL (14.0-18.0); Mean Corpuscular Hemoglobin 30.6 pg (25-34); Mean Corpuscular Hgb Conc 32.7 g/dL (32-36); Mean Corpuscular Volume 93.8 fL (80-100); Mean Platelet Volume 10.6 fL (7.4-10.4); Platelet Count 143 K/uL (130-400); RDW Coefficient of Variation 14.7 % (11.5-14.5); RDW Standard Deviation 50.1 fL (36.4-46.3); White Blood Count 2.09 K/uL (4.8-10.8)
[2019-05-15] MEDS ORDERED: NORMOSOL-R 500 ML IV ONE ×2 (04:42→07:15)
[2019-05-15 04:57] LABS: BUN Creatinine Ratio 15.4 (10-20); Calcium 7.9 mg/dl (8.5-10.1); Creatinine Clr Calc Pharmacy 19.8 ml/min; Est GFR (African American) 16.3; Est GFR (Non-African American) 14.1; Magnesium 1.7 mg/dl (1.8-2.4); Potassium 4.5 mmol/L (3.5-5.1)
[2019-05-15 05:02] LABS: Troponin I 0.035 ng/ml (0-0.045)
[2019-05-15] MEDS ORDERED: NORMOSOL-R 1,000 ML IV ONE (05:05)
[2019-05-15 05:25] LABS: iSTAT Arterial Blood Gas HCO3 20 meg/L (19-24); iSTAT Arterial Blood Gas pCO2 48 mmHg (35-46); iSTAT Arterial Blood Gas pH 7.24 (7.35-7.45); iSTAT Arterial Blood Gas pO2 93 mmHg (80-95); iSTAT Carbon Dioxide 22 mEq/l (24-31); iSTAT FiO2 70 %; iSTAT Site Art Line
[2019-05-15] MEDS: MAGNESIUM SULFATE / D5W 1 GM/100 ML BAG IV SCH ×2 (06:18→07:40)
[2019-05-15] MEDS: ALBUT/IPRATROP 3MG/0.5MG NEB 3 ML VIAL NEB SCH ×4 (07:42→21:38)
[2019-05-15] MEDS: PIPERACILLIN/TAZOBACTAM 3.375 GM in DEXTROSE 5% 100 ML IV SCH (07:47)
[2019-05-15] MEDS: methylPREDNISolone 60 MG in SYRINGE 0 ML IV SCH ×2 (07:47→20:59)
[2019-05-15] MEDS: FAMOTIDINE 20 MG in SYRINGE 3 ML IV SCH (07:48)
--- NOTE | 2019-05-15 08:35 | Anesthesiology Progress Note ---
Date of Service May 15, 2019 Anesthesia Post Procedure Vital Signs Vital Signs: Temp Pulse Pulse Resp BP BP Pulse Ox 05/15/19 07:43 72 25 H 96 05/15/19 06:01 70 97 05/15/19 06:00 36.5 C 75 108/64 97 05/15/19 05:31 75 96 05/15/19 05:30 69 102/65 96 05/15/19 05:28 26 H 05/15/19 05:23 72 26 H 97 05/15/19 05:00 73 102/57 L 96 05/15/19 04:36 75 82/46 L 99 05/15/19 04:30 77 98/50 L 99 05/15/19 04:14 75 88/58 L 100 05/15/19 04:00 36.5 C 78 93/52 L 100 05/15/19 03:31 74 99 05/15/19 03:30 76 97/51 L 98 05/15/19 03:01 72 98 05/15/19 03:00 71 25 H 93/61 L 99 05/15/19 02:55 69 84/59 L 97 05/15/19 02:31 77 96 05/15/19 02:30 75 105/63 96 05/15/19 02:01 36.5 C 69 96 05/15/19 02:00 72 105/55 L 96 05/15/19 01:31 69 95 05/15/19 01:30 67 98/58 L 95 05/15/19 01:01 69 91 05/15/19 01:00 70 117/63 91 05/15/19 00:56 69 24 91 05/15/19 00:31 70 90 05/15/19 00:30 36.6 C 68 109/58 L 90 05/15/19 00:01 36.5 C 68 91 05/15/19 00:00 69 109/57 L 91 05/14/19 23:45 67 89 L 05/14/19 23:31 69 90 05/14/19 23:30 68 105/52 L 91 05/14/19 23:15 70 93 05/14/19 23:00 70 94 05/14/19 22:45 78 110/52 L 95 05/14/19 22:30 16 05/14/19 21:43 36.8 C 78 84 L 05/14/19 21:40 73 75 14 118/52 L 118/52 L 92 05/14/19 21:35 36.6 C 73 14 133/54 L 90 05/14/19 21:30 75 14 115/52 L 97 05/14/19 19:29 94 H 24 94 05/14/19 19:28 86 26 H 92 05/14/19 18:46 81 L 05/14/19 18:30 74 26 H 95 05/14/19 18:12 76 19 160/98 H 96 05/14/19 18:11 18 05/14/19 18:00 74 24 05/14/19 17:30 76 25 H 98 05/14/19 17:24 80 21 94 05/14/19 16:57 81 22 90 05/14/19 16:31 94 05/14/19 16:26 37 C 88 22 170/69 H 87 L 05/14/19 16:09 77 25 H 170/69 H 97 Transfer of Care Handoff Completed per policy Notes Mental Status: see notes below Nausea / Vomiting: see Notes below Pain: see Notes below Airway Patency, RR, SpO2: stable & adequate BP & HR: stable & adequate and see Notes below Hydration State: stable & adequate and see Notes below Anesthetic Complications: see Notes below Notes: The patient is a 78 y/o male who is POD 1 small bowel resection and R inguinal hernia repair due to necrotic bowel from an incarcerated hernia. The patient has significant PMH of afib, mitral regurgitation, diastolic heart failure, CAD, PAD, HTN, DM, sleep apnea, normal pressure hydrocephalus, and kidney disease. The patient was found to have necrotic bowel intraoperatively. He also had multiple episodes of aspiration prior to surgery leading to acute respiratory failure. The patient is currently intubated. He is saturating 98% on Fi02 0.5, VT 400s, PEEP 12. The patient's most recent CXR continues to show bibasilar airspace consolidation with mild pleural effusions and vascular congestion. The patient is on norepinephrine gtt to maintain blood pressures in the 110s/60s. The patient has received several fluid boluses overnight given significant output from the NG tube. The patient has a history of diastolic heart failure so fluid status is being monitored closely and Lasix will give given per the ICU team as necessary.
--- NOTE | 2019-05-15 08:47 | Hospitalist Progress Note ---
Date of Service May 15, 2019 Assessment & Plan (1) Acute respiratory distress syndrome (ARDS): 2nd to aspiration pneumonitis. Vent management per critical care. (2) Pneumonitis due to inhalation of food or vomitus: Occurred perioperatively. Zosyn. Vent support. (3) Shock: Likely multifactorial - hypovolemic, septic (from aspiration pneumonitis, etc). No evidence of cardiogenic etiology. Is already on steroids - no point in checking cortisol. Pressor support. (4) Lactic acidosis: 2nd to shock. Cont supportive care. (5) Acute renal failure due to tubular necrosis: In setting of CKD stage 3. Nephrology consult appreciated. May need HD if UOP does not improve, acid-base status worsens, etc. (6) Strangulated inguinal hernia: POD #1 s/p reduction of hernia, resection of small portion of small bowel. Defer management to surgery, critical care. NG tube in place. (7) SBO (small bowel obstruction): 2nd to strangulated inguinal hernia. POD #1 s/p reduction of hernia, small bowel resection, etc. Defer management to surgery. NG tube to ILWS. (8) Diastolic heart failure: Avoid excess fluid resuscitation in light of diastolic dysfunction, worsening renal function, etc. Cardiology following. (9) NPH (normal pressure hydrocephalus): Noted. (10) Hypertension: Home BP meds held. (11) Stage 3 chronic kidney disease: With ARF 2nd ATN. Serial BMPs. (12) Atrial fibrillation: A. fib/flutter. Rates controlled. Eliquis on hold due to recent surgery. (13) PAD (peripheral artery disease): (14) Type 2 diabetes mellitus: Pharmacy to manage. (15) Obstructive sleep apnea: Noted. (16) DVT prophylaxis: SCDs Critically ill with multi-organ failure. DNR. Prognosis guarded. Subjective Spoke with critical care attending at bedside. Pt remains intubated/sedated on pressors, propofol, and fentanyl drips. BPs satisfactory this afternoon. Creatinine is elevated above baseline but has not appreciably changed since yesterday. With that said he remains severely oliguric. Pt is DNR. Review of Systems Review of Systems: Unobtainable due to endotracheal tube and Unobtainable due to reduced consciousness Physical Exam Constitutional: no acute distress pt awoke briefly during my visit; shook head yes/no to questions; shook head "yes" that he was having abdominal pain ENMT: ETT and enteric tube in place Respiratory: Auscultation: + diminished lung sounds (bases); no wheezes Cardiovascular: Rate/Rhythm: regular rate and regular rhythm Heart Sounds: normal S1 and normal S2; no murmur Vessels: + JVD, posterior tibial pulses present and dorsalis pedis pulses present Extremities: + edema Gastrointestinal (Abdomen): Inspection/Auscultation: + abdomen distended; + abnormal bowel sounds (decreased) Percussion/Palpation: + abdomen tender (RLQ region ); no guarding and abdomen not rigid dressings intact right groin Skin: + pallor Neurologic: moves all extremities (spontaneously ) Results & Data Vital Signs (Past 12 Hours) Vital Signs Temp Pulse Pulse Resp BP BP Pulse Ox 05/15/19 07:43 72 25 H 96 05/15/19 06:01 70 97 05/15/19 06:00 36.5 C 75 108/64 97 05/15/19 05:31 75 96 05/15/19 05:30 69 102/65 96 05/15/19 05:28 26 H 05/15/19 05:23 72 26 H 97 05/15/19 05:00 73 102/57 L 96 05/15/19 04:36 75 82/46 L 99 05/15/19 04:30 77 98/50 L 99 05/15/19 04:14 75 88/58 L 100 05/15/19 04:00 36.5 C 78 93/52 L 100 05/15/19 03:31 74 99 05/15/19 03:30 76 97/51 L 98 05/15/19 03:01 72 98 05/15/19 03:00 71 25 H 93/61 L 99 05/15/19 02:55 69 84/59 L 97 05/15/19 02:31 77 96 05/15/19 02:30 75 105/63 96 05/15/19 02:01 36.5 C 69 96 05/15/19 02:00 72 105/55 L 96 05/15/19 01:31 69 95 05/15/19 01:30 67 98/58 L 95 05/15/19 01:01 69 91 05/15/19 01:00 70 117/63 91 11/24/19 00:56 69 24 91 05/15/19 00:31 70 90 05/15/19 00:30 36.6 C 68 109/58 L 90 05/15/19 00:01 36.5 C 68 91 05/15/19 00:00 69 109/57 L 91 05/14/19 23:45 67 89 L 05/14/19 23:31 69 90 05/14/19 23:30 68 105/52 L 91 05/14/19 23:15 70 93 05/14/19 23:00 70 94 05/14/19 22:45 78 110/52 L 95 05/14/19 22:30 16 05/14/19 21:43 36.8 C 78 84 L 05/14/19 21:40 73 75 14 118/52 L 118/52 L 92 05/14/19 21:35 36.6 C 73 14 133/54 L 90 05/14/19 21:30 75 14 115/52 L 97 Laboratory Results Laboratory Results - last 24 hr 05/14/19 05/14/19 05/14/19 21:43 21:50 22:13 WBC 3.74 L RBC 3.11 L Hgb 9.5 L Hct 29.1 L MCV 93.6 MCH 30.5 MCHC 32.6 RDW Std Deviation 49.7 H RDW Coeff of Ekta 14.5 Plt Count 174 MPV 10.3 Immature Gran % (Auto) 0.0 Neut % (Auto) 68.4 Lymph % (Auto) 28.1 [place] % (Auto) 3.2 Eos % (Auto) 0.3 Baso % (Auto) 0.0 Immature Gran # (Auto) 0.00 Neut # (Auto) 2.56 Lymph # (Auto) 1.05 L [place] # (Auto) 0.12 Eos # (Auto) 0.01 Baso # (Auto) 0.00 Toxic Vacuolation 2+ Dohle Bodies 1+ Giant Platelets 2+ Sample Site POC pH POC pCO2 POC pO2 POC HCO3 POC Total CO2 POC Base Excess POC ABG O2 Sat Jeffery Test O2 Delivery Device POC O2 Rate POC FiO2 Tidal Volume PEEP Sodium Potassium Chloride Carbon Dioxide Anion Gap BUN Creatinine Est Cr Clr Drug Dosing Est GFR ( Amer) Est GFR (Non-Af Amer) BUN/Creatinine Ratio Glucose POC Glucose 115 H POC Glucose (other) Lactate Calcium Phosphorus Magnesium Total Creatine Kinase Troponin I Urine Color Urine Appearance Urine pH Ur Specific [place] Urine Protein Urine Glucose (UA) Urine Ketones Urine Blood Urine Nitrite Urine Bilirubin Urine Urobilinogen Ur Leukocyte Esterase Urine WBC (Auto) Urine RBC (Auto) U Hyaline Cast (Auto) U Epithel Cells (Auto) Urine Bacteria (Auto) Urine Yeast Nasal Screen MRSA (PCR) Negative 05/14/19 05/14/19 05/14/19 22:13 22:13 22:17 WBC RBC Hgb Hct MCV MCH MCHC RDW Std Deviation RDW Coeff of Ekta Plt Count MPV Immature Gran % (Auto) Neut % (Auto) Lymph % (Auto) [place] % (Auto) Eos % (Auto) Baso % (Auto) Immature Gran # (Auto) Neut # (Auto) Lymph # (Auto) [place] # (Auto) Eos # (Auto) Baso # (Auto) Toxic Vacuolation Dohle Bodies Giant Platelets Sample Site Art Line POC pH 7.09 L* POC pCO2 77 H POC pO2 62 L POC HCO3 23 POC Total CO2 26 POC Base Excess -6.0 POC ABG O2 Sat 80.0 L Jeffery Test Pass O2 Delivery Device Ventilator POC O2 Rate 14 POC FiO2 100 Tidal Volume 400 PEEP 12 Sodium 136 Potassium 4.7 Chloride 104 Carbon Dioxide 24 Anion Gap 8.0 BUN 58 H Creatinine 3.72 H Est Cr Clr Drug Dosing 20.6 Est GFR ( Amer) 17.1 Est GFR (Non-Af Amer) 14.8 BUN/Creatinine Ratio 15.5 Glucose 103 H POC Glucose POC Glucose (other) Lactate 4.4 H* Calcium 8.2 L Phosphorus 5.6 H Magnesium 2.0 Total Creatine Kinase 141 Troponin I Urine Color Urine Appearance Urine pH Ur Specific [place] Urine Protein Urine Glucose (UA) Urine Ketones Urine Blood Urine Nitrite Urine Bilirubin Urine Urobilinogen Ur Leukocyte Esterase Urine WBC (Auto) Urine RBC (Auto) U Hyaline Cast (Auto) U Epithel Cells (Auto) Urine Bacteria (Auto) Urine Yeast Nasal Screen MRSA (PCR) 05/14/19 05/15/19 05/15/19 23:18 00:39 04:28 WBC 2.09 L RBC 3.20 L Hgb 9.8 L Hct 30.0 L MCV 93.8 MCH 30.6 MCHC 32.7 RDW Std Deviation 50.1 H RDW Coeff of Ekta 14.7 H Plt Count 143 MPV 10.6 H Immature Gran % (Auto) Neut % (Auto) Lymph % (Auto) [place] % (Auto) Eos % (Auto) Baso % (Auto) Immature Gran # (Auto) Neut # (Auto) Lymph # (Auto) [place] # (Auto) Eos # (Auto) Baso # (Auto) Toxic Vacuolation Dohle Bodies Giant Platelets Sample Site Art Line Art Line POC pH 7.16 L* 7.19 L* POC pCO2 72 H 59 H POC pO2 88 74 L POC HCO3 26 H 23 POC Total CO2 28 24 POC Base Excess -3.0 -6.0 POC ABG O2 Sat 93.0 90.0 Jeffery Test NA NA O2 Delivery Device Ventilator Ventilator POC O2 Rate 16 22 POC FiO2 80 80 Tidal Volume 450 450 PEEP 14 14 Sodium Potassium Chloride Carbon Dioxide Anion Gap BUN Creatinine Est Cr Clr Drug Dosing Est GFR ( Amer) Est GFR (Non-Af Amer) BUN/Creatinine Ratio Glucose POC Glucose POC Glucose (other) Lactate Calcium Phosphorus Magnesium Total Creatine Kinase Troponin I Urine Color Urine Appearance Urine pH Ur Specific [place] Urine Protein Urine Glucose (UA) Urine Ketones Urine Blood Urine Nitrite Urine Bilirubin Urine Urobilinogen Ur Leukocyte Esterase Urine WBC (Auto) Urine RBC (Auto) U Hyaline Cast (Auto) U Epithel Cells (Auto) Urine Bacteria (Auto) Urine Yeast Nasal Screen MRSA (PCR) 05/15/19 05/15/19 05/15/19 04:28 04:28 05:11 WBC RBC Hgb Hct MCV MCH MCHC RDW Std Deviation RDW Coeff of Ekta Plt Count MPV Immature Gran % (Auto) Neut % (Auto) Lymph % (Auto) [place] % (Auto) Eos % (Auto) Baso % (Auto) Immature Gran # (Auto) Neut # (Auto) Lymph # (Auto) [place] # (Auto) Eos # (Auto) Baso # (Auto) Toxic Vacuolation Dohle Bodies Giant Platelets Sample Site Art Line POC pH 7.24 L POC pCO2 48 H POC pO2 93 POC HCO3 20 POC Total CO2 22 L POC Base Excess -7.0 POC ABG O2 Sat 96.0 H Jeffery Test NA O2 Delivery Device Ventilator POC O2 Rate 24 POC FiO2 70 Tidal Volume 450 PEEP 14 Sodium 137 Potassium 4.5 Chloride 106 Carbon Dioxide 20 L Anion Gap 11.0 BUN 60 H Creatinine 3.87 H Est Cr Clr Drug Dosing 19.8 Est GFR ( Amer) 16.3 Est GFR (Non-Af Amer) 14.1 BUN/Creatinine Ratio 15.4 Glucose 65 L POC Glucose POC Glucose (other) Lactate 3.8 H* Calcium 7.9 L Phosphorus Magnesium 1.7 L Total Creatine Kinase Troponin I 0.035 Urine Color Urine Appearance Urine pH Ur Specific [place] Urine Protein Urine Glucose (UA) Urine Ketones Urine Blood Urine Nitrite Urine Bilirubin Urine Urobilinogen Ur Leukocyte Esterase Urine WBC (Auto) Urine RBC (Auto) U Hyaline Cast (Auto) U Epithel Cells (Auto) Urine Bacteria (Auto) Urine Yeast Nasal Screen MRSA (PCR) 05/15/19 05/15/19 05/15/19 08:59 09:20 11:53 WBC RBC Hgb Hct MCV MCH MCHC RDW Std Deviation RDW Coeff of Ekta Plt Count MPV Immature Gran % (Auto) Neut % (Auto) Lymph % (Auto) [place] % (Auto) Eos % (Auto) Baso % (Auto) Immature Gran # (Auto) Neut # (Auto) Lymph # (Auto) [place] # (Auto) Eos # (Auto) Baso # (Auto) Toxic Vacuolation Dohle Bodies Giant Platelets Sample Site POC pH POC pCO2 POC pO2 POC HCO3 POC Total CO2 POC Base Excess POC ABG O2 Sat Jeffery Test O2 Delivery Device POC O2 Rate POC FiO2 Tidal Volume PEEP Sodium Potassium Chloride Carbon Dioxide Anion Gap BUN Creatinine Est Cr Clr Drug Dosing Est GFR ( Amer) Est GFR (Non-Af Amer) BUN/Creatinine Ratio Glucose POC Glucose POC Glucose (other) 89 94 Lactate Calcium Phosphorus Magnesium Total Creatine Kinase Troponin I Urine Color Dark Yellow Urine Appearance Turbid A Urine pH 5.0 Ur Specific [place] 1.023 Urine Protein 2+ H Urine Glucose (UA) Negative Urine Ketones Trace H Urine Blood 3+ H Urine Nitrite Negative Urine Bilirubin Negative Urine Urobilinogen Negative Ur Leukocyte Esterase 1+ H Urine WBC (Auto) 5-10 H Urine RBC (Auto) >30 H U Hyaline Cast (Auto) 1-5 U Epithel Cells (Auto) 20-30 H Urine Bacteria (Auto) Negative Urine Yeast Not Reportable Nasal Screen MRSA (PCR) 05/15/19 05/15/19 12:46 17:00 WBC RBC Hgb Hct MCV MCH MCHC RDW Std Deviation RDW Coeff of Ekta Plt Count MPV Immature Gran % (Auto) Neut % (Auto) Lymph % (Auto) [place] % (Auto) Eos % (Auto) Baso % (Auto) Immature Gran # (Auto) Neut # (Auto) Lymph # (Auto) [place] # (Auto) Eos # (Auto) Baso # (Auto) Toxic Vacuolation Dohle Bodies Giant Platelets Sample Site POC pH POC pCO2 POC pO2 POC HCO3 POC Total CO2 POC Base Excess POC ABG O2 Sat Jeffery Test O2 Delivery Device POC O2 Rate POC FiO2 Tidal Volume PEEP Sodium 136 Potassium 4.6 Chloride 102 Carbon Dioxide 20 L Anion Gap 14.0 H BUN 59 H Creatinine 3.90 H Est Cr Clr Drug Dosing 19.7 Est GFR ( Amer) 16.2 Est GFR (Non-Af Amer) 13.9 BUN/Creatinine Ratio 15.1 Glucose 101 H POC Glucose POC Glucose (other) Lactate 6.1 H* Calcium 7.6 L Phosphorus 4.9 Magnesium 2.3 Total Creatine Kinase Troponin I Urine Color Urine Appearance Urine pH Ur Specific [place] Urine Protein Urine Glucose (UA) Urine Ketones Urine Blood Urine Nitrite Urine Bilirubin Urine Urobilinogen Ur Leukocyte Esterase Urine WBC (Auto) Urine RBC (Auto) U Hyaline Cast (Auto) U Epithel Cells (Auto) Urine Bacteria (Auto) Urine Yeast Nasal Screen MRSA (PCR) PG Care Time/CCT Total # of Minutes Spent Total Time Spent with Patient: Total time spent is greater than 50% in coordination of care (as documented) at patient's floor/unit and/or counseling patient: (1) Diastolic heart failure Heart failure chronicity: chronic Qualified Code(s): I50.32 - Chronic diastolic (congestive) heart failure (2) Hypertension Hypertension type: essential hypertension Qualified Code(s): I10 - Essential (primary) hypertension (3) Atrial fibrillation Atrial fibrillation type: paroxysmal Qualified Code(s): I48.0 - Paroxysmal atrial fibrillation (4) Type 2 diabetes mellitus Diabetes mellitus alf insulin use: without terminal make up operator use Diabetes mellitus complication status: with kidney complications Diabetes mellitus complication detail: with chronic kidney disease Chronic kidney disease stage: stage 3 (moderate) Qualified Code(s): E11.22 - Type 2 diabetes mellitus with diabetic chronic kidney disease; N18.3 - Chronic kidney disease, stage 3 (moderate)
[2019-05-15 09:41] LABS: Appearance Urine Turbid (Clear); Bacteria Urine Automated Negative (Negative); Bilirubin Urine Negative (Negative); Blood Urine 3+ (Negative); Color Urine Dark Yellow; Epithelial Cell Urine Auto 20-30 /lpf (0-5); Glucose Urine UA Negative (Negative); Ketones Urine Trace (Negative); Leukocyte Esterase Urine 1+ (Negative); Nitrite Urine Negative (Negative); Protein Urine 2+ (Negative); Specific Gravity Urine 1.023 (1.000-1.030); Urobilinogen Urine Negative (Negative)
[2019-05-15 09:56] LABS: RBC Urine Automated >30 /hpf (0-4)
--- NOTE | 2019-05-15 12:04 | Surgery Progress Note ---
Date of Service May 15, 2019 Assessment & Plan (1) Incarcerated inguinal hernia: dressing dry abdomen benign Present on Admission?: Yes (2) SBO (small bowel obstruction): ngt in place Present on Admission?: Yes (3) Pneumonitis due to inhalation of food or vomitus: mech vent, weaning slowly DAVEY with rising creatnine Present on Admission?: Yes Subjective intubated and sedated Review of Systems Review of Systems: Unobtainable due to endotracheal tube Physical Exam Constitutional: well developed and well nourished Respiratory: Auscultation: + diminished lung sounds and + rhonchi Cardiovascular: Rate/Rhythm: + tachycardic Gastrointestinal (Abdomen): Inspection/Auscultation: normal bowel sounds Percussion/Palpation: abdomen soft; abdomen nontender Musculoskeletal: Head/Neck/Chest: normocephalic and head atraumatic Results & Data Vital Signs (Past 12 Hours) Vital Signs Temp Pulse Resp BP Pulse Ox 05/15/19 11:13 75 25 H 93 05/15/19 09:31 81 96 05/15/19 09:30 75 102/50 L 95 05/15/19 09:20 79 96 05/15/19 09:10 79 96 05/15/19 09:01 79 96 05/15/19 09:00 77 104/55 L 97 05/15/19 08:50 78 96 05/15/19 08:40 75 96 05/15/19 08:31 78 96 05/15/19 08:30 77 111/59 L 96 05/15/19 08:20 75 96 05/15/19 08:10 75 96 05/15/19 08:01 66 95 05/15/19 08:00 36.6 C 66 116/68 94 05/15/19 07:50 69 95 05/15/19 07:43 72 25 H 96 05/15/19 07:40 69 97 05/15/19 07:31 69 97 05/15/19 07:30 72 106/51 L 97 05/15/19 07:20 68 96 05/15/19 07:10 72 96 05/15/19 07:01 70 96 05/15/19 07:00 71 101/59 L 96 05/15/19 06:01 70 97 05/15/19 06:00 36.5 C 75 108/64 97 05/15/19 05:31 75 96 05/15/19 05:30 69 102/65 96 05/15/19 05:28 26 H 05/15/19 05:23 72 26 H 97 05/15/19 05:00 73 102/57 L 96 05/15/19 04:36 75 82/46 L 99 05/15/19 04:30 77 98/50 L 99 05/15/19 04:14 75 88/58 L 100 05/15/19 04:00 36.5 C 78 93/52 L 100 05/15/19 03:31 74 99 05/15/19 03:30 76 97/51 L 98 05/15/19 03:01 72 98 05/15/19 03:00 71 25 H 93/61 L 99 05/15/19 02:55 69 84/59 L 97 05/15/19 02:31 77 96 05/15/19 02:30 75 105/63 96 05/15/19 02:01 36.5 C 69 96 05/15/19 02:00 72 105/55 L 96 05/15/19 01:31 69 95 05/15/19 01:30 67 98/58 L 95 05/15/19 01:01 69 91 05/15/19 01:00 70 117/63 91 05/15/19 00:56 69 24 91 05/15/19 00:31 70 90 05/15/19 00:30 36.6 C 68 109/58 L 90 05/15/19 00:01 36.5 C 68 91
--- NOTE | 2019-05-15 13:10 | Cardiology Consultation ---
Date of Consultation May 15, 2019 Assessment & Plan (1) Acute respiratory distress syndrome (ARDS): Management per critical care team. (2) Incarcerated inguinal hernia: The patient had emergent surgery with Dr. Pham including resection of necrotic small bowel and repair of the right-sided inguinal hernia. (3) Coronary arteriosclerosis: The patient has known nonobstructive coronary artery disease. Cardiac catheterization performed 2009 noted a 50% proximal LAD stenosis. Resume medical management when able. (4) Atrial fibrillation: The patient atrial dysrhythmia is adequately rate controlled. (5) Diastolic heart failure: Would avoid aggressive intravenous hydration. History of Present Illness Attending Physician: Sandro Villar History of Present Illness Mr. Haddad is a 78-year-old male admitted yesterday with incarcerated right inguinal hernia which required emergent surgery. This consult is order to assistance cardiac management. Of note, the patient typically follows with Dr. Curiel in the outpatient setting. The patient presented to the emergency room yesterday with complaints of 3 days of nausea and vomiting. He was found to have an incarcerated right inguinal hernia and was taken to the operating room by Dr. Pham. The patient had resection of necrotic small bowel in repair of his right inguinal hernia. Unfortunately, at the time of induction, he experienced a significant aspiration and now remains on mechanical ventilation. The patient has a history of known nonobstructive coronary artery disease. A cardiac catheterization 2009 revealed a 50% proximal LAD stenosis. The patient also carries a history of chronic diastolic CHF. There have been no recent hospitalizations for decompensation. The patient did have an echocardiogram performed in February which noted normal left ventricular systolic function without wall motion abnormality. There was mild LVH, moderate mitral regurgitation, and elevated right ventricular systolic pressure. A Lexiscan performed in March showed no evidence of ischemia or infarction. Ejection fraction was normal at 67% Currently, patient is sedated and on mechanical ventilation in the intensive care unit. Past medical and surgical history 1. Nonobstructive coronary artery disease-see above 2. Hypertension 3. Mild LVH 4. Hypercholesterolemia 5. Chronic diastolic CHF 6. Moderate mitral regurgitation 7. Pulmonary hypertension 8. Diabetes mellitus 9. Chronic renal failure 10. GERD 11. Obstructive sleep apnea 12. Gout 13. Normal pressure hydrocephalus 14. Peripheral vascular disease 15. L3-4 fusion 16. Bilateral THR 17. Partial parathyroidectomy Social history and lives with his Quit tobacco use in 1984 No alcohol Family history Noncontributory Review of systems Unobtainable Allergies Allergy/AdvReac Type Severity Reaction Status Date / Time latex Allergy Unknown LOCAL SKIN Verified 05/14/19 17:23 IRRITATION lisinopril Allergy Unknown hyperkalemi Verified 05/14/19 17:23 a sulfamethoxazole AdvReac increases Verified 05/14/19 17:23 [From Bactrim] potassium trimethoprim [From Bactrim] AdvReac increases Verified 05/14/19 17:23 potassium Home Medications Home Medications Medication Instructions Recorded Confirmed Type ascorbic acid (vitamin C) 1,000 mg PO QAM 10/08/18 05/14/19 History garlic 1,000 mg PO QAM 10/08/18 05/14/19 History multivitamin 1 tab PO QAM 10/08/18 05/14/19 History pravastatin 10 mg PO QAM 10/08/18 05/14/19 History febuxostat [Uloric] 40 mg PO QAM 12/14/18 05/14/19 History cholecalciferol (vitamin D3) 1,000 1,000 units PO QAM 01/17/19 05/14/19 History unit capsule fluvoxamine 100 mg PO HS 03/03/19 05/14/19 History apixaban 5 mg tablet 5 mg PO BID #180 tab 04/06/19 05/14/19 Rx ipratropium bromide 42 mcg (0.06 2 spray INTRANASAL BID #15 ml 04/07/19 05/14/19 Rx %) nasal spray aspirin 81 mg tablet,delayed 81 mg PO QAM 04/27/19 05/14/19 History release metoprolol tartrate 25 mg tablet 12.5 mg PO AMPM tab 04/27/19 05/14/19 History cefuroxime axetil 500 mg tablet 500 mg PO BID #20 tab 05/13/19 05/14/19 Rx amlodipine 5 mg PO QAM 05/14/19 05/14/19 History famotidine 40 mg PO QAM 05/14/19 05/14/19 History gabapentin See Rx Instructions mg PO 05/14/19 05/14/19 History DIRECTED glipizide 5 mg PO QAM 05/14/19 05/14/19 History lisinopril 5 mg PO QAM 05/14/19 05/14/19 History omega-3 fatty acids-fish oil [Fish 2,400 cap PO QAM 05/14/19 05/14/19 History Oil] plant stanol amarjit [Cholest Off] 0 mg PO BID 05/14/19 05/14/19 History torsemide 10 mg PO QAM 05/14/19 05/14/19 History vit C,I-Tr-oucbe-lutein-zeaxan 1 tab PO BID 05/14/19 05/14/19 History [PreserVision AREDS-2] Patient History Medical History (Updated 05/15/19 @ 00:52 by JODI Colby) Afib Arthritis Cataracts, both eyes RIGHT EYE BEING DONE FIRST Coronary arteriosclerosis Diabetes Diastolic dysfunction GERD (gastroesophageal reflux disease) High cholesterol History of stress test 2009 [place] D/T PASSED OUT WENT TO [facility]. DR CURIEL - CURRENT PEER SPECIALIST HAS RECORD OF THIS Hx of fall 09/2018 - SEEN IN ED - HAD CT OF HEAD - NEGATIVE Mitral regurgitation Normal pressure hydrocephalus Peripheral artery disease LEFT LEG Renal insufficiency Surgical History History of back surgery L3-L4 History of left hip replacement History of parathyroidectomy (Resolved) PARTIAL History of right hip replacement X2 Hx of hernia repair Family History Father Myocardial infarction Mother Gout CHF (congestive heart failure) Social History Preferred Language: Bhutanese Communication Ability: Effective Senior Maintenance Technician Required: No Beliefs That Will Affect Care: None Current Living Situation: Spouse Other Information That Helps Us Care for You: No Feels Safe at Home: Yes Safety Concerns: Feels Safe At This Time Smoking Status: Former smoker Tobacco Type: cigarettes ; Do You Dip or Chew Tobacco: No ; Smoking End Date: 1984 ; Second Hand Exposure: No ; Tobacco Cessation Education Requested by Patient: No Hx Alcohol Use: No Hx Substance Use: No Physical Exam Physical Exam: In general this is a well-developed well-nourished white male sedated and intubated. HEENT exam notes an ET tube in place. Neck is supple with full carotid upstrokes. Jugular is pressure cannot be assessed. Cardiovascular exam reveals an irregular rhythm with distant heart sounds. No obvious murmurs. Lungs no coarse breath sounds throughout. Abdomen is soft. Extremities reveal intact radial artery pulses bilaterally. There is no damaso pheral edema. Results & Data Vital Signs (Past 12 Hours) Vital Signs Temp Pulse Resp BP Pulse Ox 05/15/19 11:13 75 25 H 93 05/15/19 09:31 81 96 05/15/19 09:30 75 102/50 L 95 05/15/19 09:20 79 96 05/15/19 09:10 79 96 05/15/19 09:01 79 96 05/15/19 09:00 77 104/55 L 97 05/15/19 08:50 78 96 05/15/19 08:40 75 96 05/15/19 08:31 78 96 05/15/19 08:30 77 111/59 L 96 05/15/19 08:20 75 96 05/15/19 08:10 75 96 05/15/19 08:01 66 95 05/15/19 08:00 36.6 C 66 116/68 94 05/15/19 07:50 69 95 05/15/19 07:43 72 25 H 96 05/15/19 07:40 69 97 05/15/19 07:31 69 97 05/15/19 07:30 72 106/51 L 97 05/15/19 07:20 68 96 05/15/19 07:10 72 96 05/15/19 07:01 70 96 05/15/19 07:00 71 101/59 L 96 05/15/19 06:01 70 97 05/15/19 06:00 36.5 C 75 108/64 97 05/15/19 05:31 75 96 05/15/19 05:30 69 102/65 96 05/15/19 05:28 26 H 05/15/19 05:23 72 26 H 97 05/15/19 05:00 73 102/57 L 96 05/15/19 04:36 75 82/46 L 99 05/15/19 04:30 77 98/50 L 99 05/15/19 04:14 75 88/58 L 100 05/15/19 04:00 36.5 C 78 93/52 L 100 05/15/19 03:31 74 99 05/15/19 03:30 76 97/51 L 98 05/15/19 03:01 72 98 11/24/19 03:00 71 25 H 93/61 L 99 05/15/19 02:55 69 84/59 L 97 05/15/19 02:31 77 96 05/15/19 02:30 75 105/63 96 05/15/19 02:01 36.5 C 69 96 05/15/19 02:00 72 105/55 L 96 05/15/19 01:31 69 95 05/15/19 01:30 67 98/58 L 95 05/15/19 01:01 69 91 05/15/19 01:00 70 117/63 91 05/15/19 00:56 69 24 91 Laboratory Results CBC notes a hemoglobin of 9.8, hematocrit 30.0, white count 2.09, platelet count [id number]. Electrolytes note a sodium of 137, potassium 4.5, chloride 106, bicarb 20, BUN 60, creatinine 3.87, glucose is 65. Magnesium level is 1.7. Initial troponin was 0.037 with a follow-up I of 0.035. BNP is elevated at 8066 Diagnostic Findings EKG notes atrial flutter with a variable ventricular response. There is an incomplete right bundle-branch block and nonspecific ST T wave abnormality. PG Care Time/CCT Total # of Minutes Spent Total Time Spent with Patient: Total time spent is greater than 50% in coordination of care (as documented) at patient's floor/unit and/or counseling patient: (1) Atrial fibrillation Atrial fibrillation type: paroxysmal Qualified Code(s): I48.0 - Paroxysmal atrial fibrillation
[2019-05-15 13:11] LABS: BUN Creatinine Ratio 15.1 (10-20); Calcium 7.6 mg/dl (8.5-10.1); Creatinine Clr Calc Pharmacy 19.7 ml/min; Est GFR (African American) 16.2; Est GFR (Non-African American) 13.9; Magnesium 2.3 mg/dl (1.8-2.4); Potassium 4.6 mmol/L (3.5-5.1)
[2019-05-15 13:14] LABS: Phosphorus 4.9 mg/dl (2.5-4.9)
--- NOTE | 2019-05-15 13:41 | Nephrology Consultation ---
Date of Consultation May 15, 2019 Assessment & Plan (1) Acute respiratory distress syndrome (ARDS): Remains intubated on mechanical ventilatory support with management by the ICU team. Intravascular EAV replacement complicated by acute pulmonary disease, chronic diastolic CHF, and DAVEY. (2) Incarcerated inguinal hernia: POD #1 s/p repar (3) Coronary arteriosclerosis: The patient has known nonobstructive coronary artery disease. Cardiac catheterization performed 2009 noted a 50% proximal LAD stenosis. Resume medical management when able. (4) Atrial fibrillation: The patient atrial dysrhythmia is adequately rate controlled. (5) Diastolic heart failure: Diuretics held at this time. (6) Acute kidney injury: DAVEY on CKD. Baseline creatinine 2.1 mg/dL. Clinical presentation consistent with ATN. CT did not demonstrate obstruction. UA with RBC/WBCs and protein in setting of Toribio catheter. Non-oliguric but urine output declining. No emergent indication for dialysis at this time but prognosis is guarded. This was discussed in detail with the patient's family. They have express that dialysis may not be consistent with Tyler's personal wishes and they have reservations about starting. They also have reservations about transfer to another hospital. Unfortunately, dialysis cannot be provided at [facility] today. At this time, we will continue with supportive care with close prospective monitoring. Medications are appropriately dosed for kidney function. Volume status is acceptable. Document strict I/O's. Repeat metabolic profile this evening. History of Present Illness Reason for Consultation: DAVEY/CKD Requesting Physician: Sandro Villar Attending Physician: Sandro Villar History of Present Illness Mr. Marco A Haddad (Tony) is a 78-year-old male known to me from his recent prior hospitalization. Nephrology consultation was provided in the ICU for acute on chronic renal insufficiency. Urine output has been declining. Tyler follows in the outpatient nephrology clinic with Dr. Carney. He was recently evaluated in the clinic on April 11. Baseline creatinine has been approximately 1.0-2.3 mg/dL. There have not been prior conversations regarding hemodialysis. The patient was seen and evaluated this morning. I returned to the patient's room this afternoon for repeat evaluation and to have a family meeting with the medical assistant float as well as the patient's and daughter. Tyler presented to the ER yesterday with 3 days of abdominal pain. Evaluation notable for an incarcerated right inguinal hernia and SBO. Unfortunately, Marco A vomited and aspirated prior to being taken to the OR. He remains intubated. Thankfully, oxygenation is improving. Creatinine has risen from 3.12 mg/dL to 3.87 mg/dL in the past 24 hours. The patient has been maintained in a positive fluid balance. The patient was recently admitted to [facility] in February with weakness and evidence of acute on chronic diastolic CHF in the setting of accelerated hypertension. Creatinine francisca to 2.9 mg/dL during the admission and improved to 2.1 mg/dL at discharge. Renal doppler was non-diagnostic. Lisinopril was stopped at that time due to hyperkalemia. No RONALD/ARB has since been restarted. The patient had evidence of NPH. He outpatient diagnostic LP was recently attempted but unsuccessful. A follow up fluoroscopic LP has been scheduled. CT obtained yesterday demonstrates chronic changes in both kidneys including cortical atrophy and cysts. There was no evidence of obstruction. A 2.3 cm adrenal nodule was noted as well. Medical history is notable for coronary artery disease, paroxysmal atrial fibrillation (anticoagulated with Eliquis), BPH, possible NPH, chronic diastolic CHF, DMII, NORBERT, hypertension, and CKD III-IV. Marco A has a history of parathyroidism for which he underwent a left inferior pole parathyroidectomy in 2009. Allergies Allergy/AdvReac Type Severity Reaction Status Date / Time latex Allergy Unknown LOCAL SKIN Verified 05/14/19 17:23 IRRITATION lisinopril Allergy Unknown hyperkalemi Verified 05/14/19 17:23 a sulfamethoxazole AdvReac increases Verified 05/14/19 17:23 [From Bactrim] potassium trimethoprim [From Bactrim] AdvReac increases Verified 05/14/19 17:23 potassium Home Medications Home Medications Medication Instructions Recorded Confirmed Type ascorbic acid (vitamin C) 1,000 mg PO QAM 10/08/18 05/14/19 History garlic 1,000 mg PO QAM 10/08/18 05/14/19 History multivitamin 1 tab PO QAM 10/08/18 05/14/19 History pravastatin 10 mg PO QAM 10/08/18 05/14/19 History febuxostat [Uloric] 40 mg PO QAM 12/14/18 05/14/19 History cholecalciferol (vitamin D3) 1,000 1,000 units PO QAM 01/17/19 05/14/19 History unit capsule fluvoxamine 100 mg PO HS 03/03/19 05/14/19 History apixaban 5 mg tablet 5 mg PO BID #180 tab 04/06/19 05/14/19 Rx ipratropium bromide 42 mcg (0.06 2 spray INTRANASAL BID #15 ml 04/07/19 05/14/19 Rx %) nasal spray aspirin 81 mg tablet,delayed 81 mg PO QAM 04/27/19 05/14/19 History release metoprolol tartrate 25 mg tablet 12.5 mg PO AMPM tab 04/27/19 05/14/19 History cefuroxime axetil 500 mg tablet 500 mg PO BID #20 tab 05/13/19 05/14/19 Rx amlodipine 5 mg PO QAM 05/14/19 05/14/19 History famotidine 40 mg PO QAM 05/14/19 05/14/19 History gabapentin See Rx Instructions mg PO 05/14/19 05/14/19 History DIRECTED glipizide 5 mg PO QAM 05/14/19 05/14/19 History lisinopril 5 mg PO QAM 05/14/19 05/14/19 History omega-3 fatty acids-fish oil [Fish 2,400 cap PO QAM 05/14/19 05/14/19 History Oil] plant stanol amarjit [Cholest Off] 0 mg PO BID 05/14/19 05/14/19 History torsemide 10 mg PO QAM 05/14/19 05/14/19 History vit C,A-Uz-lyleq-lutein-zeaxan 1 tab PO BID 05/14/19 05/14/19 History [PreserVision AREDS-2] Patient History Medical History Afib Arthritis Cataracts, both eyes RIGHT EYE BEING DONE FIRST Coronary arteriosclerosis Diabetes Diastolic dysfunction GERD (gastroesophageal reflux disease) High cholesterol History of stress test 2009 [place] D/T PASSED OUT WENT TO [facility]. 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 OF THIS Hx of fall 09/2018 - SEEN IN ED - HAD CT OF HEAD - NEGATIVE Mitral regurgitation Normal pressure hydrocephalus Peripheral artery disease LEFT LEG Renal insufficiency Surgical History History of back surgery L3-L4 History of left hip replacement History of parathyroidectomy (Resolved) PARTIAL History of right hip replacement X2 Hx of hernia repair Family History Father Myocardial infarction Mother Gout CHF (congestive heart failure) Social History Preferred Language: Kosovan Communication Ability: Effective Human Resources Trainer Required: No Beliefs That Will Affect Care: None Current Living Situation: Spouse Other Information That Helps Us Care for You: No Feels Safe at Home: Yes Safety Concerns: Feels Safe At This Time Smoking Status: Former smoker Tobacco Type: cigarettes ; Do You Dip or Chew Tobacco: No ; Smoking End Date: 1984 ; Second Hand Exposure: No ; Tobacco Cessation Education Requested by Patient: No Hx Alcohol Use: No Hx Substance Use: No Review of Systems Review of Systems: Unobtainable due to endotracheal tube Physical Exam Constitutional: + ill appearing and + obese; no acute distress and not edematous Eyes: + anicteric sclerae and PERRL ENMT: Mouth: no oral mucosal abnormality ETT Neck: normal visual inspection and trachea midline Respiratory: Auscultation: + rhonchi and + bronchovesicular breath sounds mech ventilated Cardiovascular: Heart Sounds: normal S1 and normal S2 Vessels: + JVD Extremities: normal capillary refill; no edema Gastrointestinal (Abdomen): Inspection/Auscultation: + abdomen distended Percussion/Palpation: abdomen soft Musculoskeletal: Extremities: no cyanosis and no clubbing Skin: normal turgor; no rashes Neurologic: sedated, unresponsive, moves all extremities Genitourinary: Toribio draining small amount of concentrated yellow urine Results & Data Vital Signs (Past 12 Hours) Vital Signs Temp Pulse Resp BP Pulse Ox 05/15/19 11:13 75 25 H 93 05/15/19 09:31 81 96 05/15/19 09:30 75 102/50 L 95 05/15/19 09:20 79 96 05/15/19 09:10 79 96 05/15/19 09:01 79 96 05/15/19 09:00 77 104/55 L 97 05/15/19 08:50 78 96 05/15/19 08:40 75 96 05/15/19 08:31 78 96 05/15/19 08:30 77 111/59 L 96 05/15/19 08:20 75 96 05/15/19 08:10 75 96 05/15/19 08:01 66 95 05/15/19 08:00 36.6 C 66 116/68 94 05/15/19 07:50 69 95 05/15/19 07:43 72 25 H 96 05/15/19 07:40 69 97 05/15/19 07:31 69 97 05/15/19 07:30 72 106/51 L 97 05/15/19 07:20 68 96 05/15/19 07:10 72 96 05/15/19 07:01 70 96 05/15/19 07:00 71 101/59 L 96 05/15/19 06:01 70 97 05/15/19 06:00 36.5 C 75 108/64 97 05/15/19 05:31 75 96 05/15/19 05:30 69 102/65 96 05/15/19 05:28 26 H 05/15/19 05:23 72 26 H 97 05/15/19 05:00 73 102/57 L 96 05/15/19 04:36 75 82/46 L 99 05/15/19 04:30 77 98/50 L 99 05/15/19 04:14 75 88/58 L 100 05/15/19 04:00 36.5 C 78 93/52 L 100 05/15/19 03:31 74 99 05/15/19 03:30 76 97/51 L 98 05/15/19 03:01 72 98 05/15/19 03:00 71 25 H 93/61 L 99 05/15/19 02:55 69 84/59 L 97 05/15/19 02:31 77 96 05/15/19 02:30 75 105/63 96 05/15/19 02:01 36.5 C 69 96 05/15/19 02:00 72 105/55 L 96 Laboratory Results Laboratory Results - last 24 hr 05/14/19 05/14/19 05/14/19 16:16 16:16 16:16 WBC 8.45 RBC 3.64 L Hgb 11.3 L Hct 33.2 L MCV 91.2 MCH 31.0 MCHC 34.0 RDW Std Deviation 48.2 H RDW Coeff of Ekta 14.4 Plt Count 186 MPV 10.2 Immature Gran % (Auto) 0.1 Neut % (Auto) 71.7 Lymph % (Auto) 22.8 [place] % (Auto) 5.4 Eos % (Auto) 0.0 Baso % (Auto) 0.0 Immature Gran # (Auto) 0.01 Neut # (Auto) 6.05 Lymph # (Auto) 1.93 [place] # (Auto) 0.46 Eos # (Auto) 0.00 Baso # (Auto) 0.00 Toxic Vacuolation Dohle Bodies Giant Platelets 1+ PT 13.9 H INR 1.4 H Sample Site POC pH POC pCO2 POC pO2 POC HCO3 POC Total CO2 POC Base Excess POC ABG O2 Sat Jeffery Test O2 Delivery Device POC O2 Rate POC FiO2 Tidal Volume PEEP Sodium 136 Potassium 4.5 Chloride 100 Carbon Dioxide 22 Anion Gap 14.0 H BUN 54 H Creatinine 3.83 H D Est Cr Clr Drug Dosing 20.0 Est GFR ( Amer) 16.5 Est GFR (Non-Af Amer) 14.3 BUN/Creatinine Ratio 14.2 Glucose 185 H POC Glucose POC Glucose (other) Lactate Calcium 9.4 Phosphorus Magnesium Total Bilirubin 1.1 H AST 51 H ALT 47 Alkaline Phosphatase 106 Total Creatine Kinase Troponin I 0.037 NT-Pro-B Natriuret Pep 8066 H Total Protein 7.3 Albumin 3.2 L Globulin 4.1 H Albumin/Globulin Ratio 0.8 L Lipase 228 Urine Color Urine Appearance Urine pH Ur Specific [place] Urine Protein Urine Glucose (UA) Urine Ketones Urine Blood Urine Nitrite Urine Bilirubin Urine Urobilinogen Ur Leukocyte Esterase Urine WBC (Auto) Urine RBC (Auto) U Hyaline Cast (Auto) U Epithel Cells (Auto) Urine Bacteria (Auto) Urine Yeast Nasal Screen MRSA (PCR) 05/14/19 05/14/19 05/14/19 19:27 21:43 21:50 WBC RBC Hgb Hct MCV MCH MCHC RDW Std Deviation RDW Coeff of Ekta Plt Count MPV Immature Gran % (Auto) Neut % (Auto) Lymph % (Auto) [place] % (Auto) Eos % (Auto) Baso % (Auto) Immature Gran # (Auto) Neut # (Auto) Lymph # (Auto) [place] # (Auto) Eos # (Auto) Baso # (Auto) Toxic Vacuolation Dohle Bodies Giant Platelets PT INR Sample Site POC pH 7.29 L POC pCO2 50 H POC pO2 67 L POC HCO3 24 POC Total CO2 26 POC Base Excess -2.0 POC ABG O2 Sat 91.0 Jeffery Test O2 Delivery Device POC O2 Rate POC FiO2 Tidal Volume PEEP Sodium Potassium Chloride Carbon Dioxide Anion Gap BUN Creatinine Est Cr Clr Drug Dosing Est GFR ( Amer) Est GFR (Non-Af Amer) BUN/Creatinine Ratio Glucose POC Glucose 115 H POC Glucose (other) Lactate Calcium Phosphorus Magnesium Total Bilirubin AST ALT Alkaline Phosphatase Total Creatine Kinase Troponin I NT-Pro-B Natriuret Pep Total Protein Albumin Globulin Albumin/Globulin Ratio Lipase Urine Color Urine Appearance Urine pH Ur Specific [place] Urine Protein Urine Glucose (UA) Urine Ketones Urine Blood Urine Nitrite Urine Bilirubin Urine Urobilinogen Ur Leukocyte Esterase Urine WBC (Auto) Urine RBC (Auto) U Hyaline Cast (Auto) U Epithel Cells (Auto) Urine Bacteria (Auto) Urine Yeast Nasal Screen MRSA (PCR) Negative 05/14/19 05/14/19 05/14/19 22:13 22:13 22:13 WBC 3.74 L RBC 3.11 L Hgb 9.5 L Hct 29.1 L MCV 93.6 MCH 30.5 MCHC 32.6 RDW Std Deviation 49.7 H RDW Coeff of Ekta 14.5 Plt Count 174 MPV 10.3 Immature Gran % (Auto) 0.0 Neut % (Auto) 68.4 Lymph % (Auto) 28.1 [place] % (Auto) 3.2 Eos % (Auto) 0.3 Baso % (Auto) 0.0 Immature Gran # (Auto) 0.00 Neut # (Auto) 2.56 Lymph # (Auto) 1.05 L [place] # (Auto) 0.12 Eos # (Auto) 0.01 Baso # (Auto) 0.00 Toxic Vacuolation 2+ Dohle Bodies 1+ Giant Platelets 2+ PT INR Sample Site POC pH POC pCO2 POC pO2 POC HCO3 POC Total CO2 POC Base Excess POC ABG O2 Sat Jeffery Test O2 Delivery Device POC O2 Rate POC FiO2 Tidal Volume PEEP Sodium 136 Potassium 4.7 Chloride 104 Carbon Dioxide 24 Anion Gap 8.0 BUN 58 H Creatinine 3.72 H Est Cr Clr Drug Dosing 20.6 Est GFR ( Amer) 17.1 Est GFR (Non-Af Amer) 14.8 BUN/Creatinine Ratio 15.5 Glucose 103 H POC Glucose POC Glucose (other) Lactate 4.4 H* Calcium 8.2 L Phosphorus 5.6 H Magnesium 2.0 Total Bilirubin AST ALT Alkaline Phosphatase Total Creatine Kinase 141 Troponin I NT-Pro-B Natriuret Pep Total Protein Albumin Globulin Albumin/Globulin Ratio Lipase Urine Color Urine Appearance Urine pH Ur Specific [place] Urine Protein Urine Glucose (UA) Urine Ketones Urine Blood Urine Nitrite Urine Bilirubin Urine Urobilinogen Ur Leukocyte Esterase Urine WBC (Auto) Urine RBC (Auto) U Hyaline Cast (Auto) U Epithel Cells (Auto) Urine Bacteria (Auto) Urine Yeast Nasal Screen MRSA (PCR) 05/14/19 05/14/19 05/15/19 22:17 23:18 00:39 WBC RBC Hgb Hct MCV MCH MCHC RDW Std Deviation RDW Coeff of Keta Plt Count MPV Immature Gran % (Auto) Neut % (Auto) Lymph % (Auto) [place] % (Auto) Eos % (Auto) Baso % (Auto) Immature Gran # (Auto) Neut # (Auto) Lymph # (Auto) [place] # (Auto) Eos # (Auto) Baso # (Auto) Toxic Vacuolation Dohle Bodies Giant Platelets PT INR Sample Site Art Line Art Line Art Line POC pH 7.09 L* 7.16 L* 7.19 L* POC pCO2 77 H 72 H 59 H POC pO2 62 L 88 74 L POC HCO3 23 26 H 23 POC Total CO2 26 28 24 POC Base Excess -6.0 -3.0 -6.0 POC ABG O2 Sat 80.0 L 93.0 90.0 Jeffery Test Pass NA NA O2 Delivery Device Ventilator Ventilator Ventilator POC O2 Rate 14 16 22 POC FiO2 100 80 80 Tidal Volume 400 450 450 PEEP 12 14 14 Sodium Potassium Chloride Carbon Dioxide Anion Gap BUN Creatinine Est Cr Clr Drug Dosing Est GFR ( Amer) Est GFR (Non-Af Amer) BUN/Creatinine Ratio Glucose POC Glucose POC Glucose (other) Lactate Calcium Phosphorus Magnesium Total Bilirubin AST ALT Alkaline Phosphatase Total Creatine Kinase Troponin I NT-Pro-B Natriuret Pep Total Protein Albumin Globulin Albumin/Globulin Ratio Lipase Urine Color Urine Appearance Urine pH Ur Specific [place] Urine Protein Urine Glucose (UA) Urine Ketones Urine Blood Urine Nitrite Urine Bilirubin Urine Urobilinogen Ur Leukocyte Esterase Urine WBC (Auto) Urine RBC (Auto) U Hyaline Cast (Auto) U Epithel Cells (Auto) Urine Bacteria (Auto) Urine Yeast Nasal Screen MRSA (PCR) 05/15/19 05/15/19 05/15/19 04:28 04:28 04:28 WBC 2.09 L RBC 3.20 L Hgb 9.8 L Hct 30.0 L MCV 93.8 MCH 30.6 MCHC 32.7 RDW Std Deviation 50.1 H RDW Coeff of Ekta 14.7 H Plt Count 143 MPV 10.6 H Immature Gran % (Auto) Neut % (Auto) Lymph % (Auto) [place] % (Auto) Eos % (Auto) Baso % (Auto) Immature Gran # (Auto) Neut # (Auto) Lymph # (Auto) [place] # (Auto) Eos # (Auto) Baso # (Auto) Toxic Vacuolation Dohle Bodies Giant Platelets PT INR Sample Site POC pH POC pCO2 POC pO2 POC HCO3 POC Total CO2 POC Base Excess POC ABG O2 Sat Jeffery Test O2 Delivery Device POC O2 Rate POC FiO2 Tidal Volume PEEP Sodium 137 Potassium 4.5 Chloride 106 Carbon Dioxide 20 L Anion Gap 11.0 BUN 60 H Creatinine 3.87 H Est Cr Clr Drug Dosing 19.8 Est GFR ( Amer) 16.3 Est GFR (Non-Af Amer) 14.1 BUN/Creatinine Ratio 15.4 Glucose 65 L POC Glucose POC Glucose (other) Lactate 3.8 H* Calcium 7.9 L Phosphorus Magnesium 1.7 L Total Bilirubin AST ALT Alkaline Phosphatase Total Creatine Kinase Troponin I 0.035 NT-Pro-B Natriuret Pep Total Protein Albumin Globulin Albumin/Globulin Ratio Lipase Urine Color Urine Appearance Urine pH Ur Specific [place] Urine Protein Urine Glucose (UA) Urine Ketones Urine Blood Urine Nitrite Urine Bilirubin Urine Urobilinogen Ur Leukocyte Esterase Urine WBC (Auto) Urine RBC (Auto) U Hyaline Cast (Auto) U Epithel Cells (Auto) Urine Bacteria (Auto) Urine Yeast Nasal Screen MRSA (PCR) 05/15/19 05/15/19 05/15/19 05:11 08:59 09:20 WBC RBC Hgb Hct MCV MCH MCHC RDW Std Deviation RDW Coeff of Ekta Plt Count MPV Immature Gran % (Auto) Neut % (Auto) Lymph % (Auto) [place] % (Auto) Eos % (Auto) Baso % (Auto) Immature Gran # (Auto) Neut # (Auto) Lymph # (Auto) [place] # (Auto) Eos # (Auto) Baso # (Auto) Toxic Vacuolation Dohle Bodies Giant Platelets PT INR Sample Site Art Line POC pH 7.24 L POC pCO2 48 H POC pO2 93 POC HCO3 20 POC Total CO2 22 L POC Base Excess -7.0 POC ABG O2 Sat 96.0 H Jeffery Test NA O2 Delivery Device Ventilator POC O2 Rate 24 POC FiO2 70 Tidal Volume 450 PEEP 14 Sodium Potassium Chloride Carbon Dioxide Anion Gap BUN Creatinine Est Cr Clr Drug Dosing Est GFR ( Amer) Est GFR (Non-Af Amer) BUN/Creatinine Ratio Glucose POC Glucose POC Glucose (other) 89 Lactate Calcium Phosphorus Magnesium Total Bilirubin AST ALT Alkaline Phosphatase Total Creatine Kinase Troponin I NT-Pro-B Natriuret Pep Total Protein Albumin Globulin Albumin/Globulin Ratio Lipase Urine Color Dark Yellow Urine Appearance Turbid A Urine pH 5.0 Ur Specific [place] 1.023 Urine Protein 2+ H Urine Glucose (UA) Negative Urine Ketones Trace H Urine Blood 3+ H Urine Nitrite Negative Urine Bilirubin Negative Urine Urobilinogen Negative Ur Leukocyte Esterase 1+ H Urine WBC (Auto) 5-10 H Urine RBC (Auto) >30 H U Hyaline Cast (Auto) 1-5 U Epithel Cells (Auto) 20-30 H Urine Bacteria (Auto) Negative Urine Yeast Not Reportable Nasal Screen MRSA (PCR) 05/15/19 05/15/19 11:53 12:46 WBC RBC Hgb Hct MCV MCH MCHC RDW Std Deviation RDW Coeff of Ekta Plt Count MPV Immature Gran % (Auto) Neut % (Auto) Lymph % (Auto) [place] % (Auto) Eos % (Auto) Baso % (Auto) Immature Gran # (Auto) Neut # (Auto) Lymph # (Auto) [place] # (Auto) Eos # (Auto) Baso # (Auto) Toxic Vacuolation Dohle Bodies Giant Platelets PT INR Sample Site POC pH POC pCO2 POC pO2 POC HCO3 POC Total CO2 POC Base Excess POC ABG O2 Sat Jeffery Test O2 Delivery Device POC O2 Rate POC FiO2 Tidal Volume PEEP Sodium 136 Potassium 4.6 Chloride 102 Carbon Dioxide 20 L Anion Gap 14.0 H BUN 59 H Creatinine 3.90 H Est Cr Clr Drug Dosing 19.7 Est GFR ( Amer) 16.2 Est GFR (Non-Af Amer) 13.9 BUN/Creatinine Ratio 15.1 Glucose 101 H POC Glucose POC Glucose (other) 94 Lactate Calcium 7.6 L Phosphorus 4.9 Magnesium 2.3 Total Bilirubin AST ALT Alkaline Phosphatase Total Creatine Kinase Troponin I NT-Pro-B Natriuret Pep Total Protein Albumin Globulin Albumin/Globulin Ratio Lipase Urine Color Urine Appearance Urine pH Ur Specific [place] Urine Protein Urine Glucose (UA) Urine Ketones Urine Blood Urine Nitrite Urine Bilirubin Urine Urobilinogen Ur Leukocyte Esterase Urine WBC (Auto) Urine RBC (Auto) U Hyaline Cast (Auto) U Epithel Cells (Auto) Urine Bacteria (Auto) Urine Yeast Nasal Screen MRSA (PCR) PG Care Time/CCT Total # of Minutes Spent Total Time Spent with Patient: Total time spent is greater than 50% in coordination of care (as documented) at patient's floor/unit and/or counseling patient: 50 minutes of critical care time (1) Atrial fibrillation Atrial fibrillation type: paroxysmal Qualified Code(s): I48.0 - Paroxysmal atrial fibrillation
--- NOTE | 2019-05-15 16:30 | Communication Note ---
Date of Service: May 15, 2019 I was first made aware of the patient via telephone. The concern was that the patient was aspirating bile in the operating room and I discussed with a nesthesia unless there is a large nidus for infection there will be aspects of a chemical pneumonitis and that bronchoscopy with significant lavage likely only worsens pneumonitis by diluting or removing surfactant. If there is no significant nidus for infection given the acuity and critical nature of the patient he is best ventilated via arts net guidelines. Critical care team assisted with placement of an NG tube in the operating room. Subsequent to his operative repair the patient was cautiously volume expanded however he has not been producing urine. In discussion with nephrology and extensive discussion with the patient's and son and daughter all are in agreement the patient would not want heroic measures undertaken in event of cardiac arrest. He is well-known to the nephrology service and the family is actively debating whether or not he would even want an attempt at dialysis. At this time I am able to ventilate the patient and doing her best to manage his acidosis however I am concerned if he does not start to have renal recovery he will ultimately need some form of renal replacement therapy. We are unable to obtain renal replacement therapy today and have discussed possible transfer with the family. Family at this time wants to discuss things with the train caller who will be providing anointing of the sick. I have personally spent 65 minutes of critical care time in the direct management of this patient. This is a life/limb threatening event. This includes time spent evaluating patient, direct bedside care, chart review, placing orders, interpretation of diagnostic studies, discussion with consultants, patient, and/or family members regarding treatment decisions, as well as other required patient management activities. This time is exclusive of all separately billable procedures, and teaching time and separate from and in addition to any other critical care service time.
[2019-05-15] MEDS: PIPERACILLIN/TAZOBACTAM 4.5 GM in DEXTROSE 5% 100 ML IV SCH (20:59)
[2019-05-15] MEDS: PROPOFOL 1,000 MG/100 ML VIAL IV SCH (22:47)
[2019-05-15 23:07] LABS: BUN Creatinine Ratio 15.6 (10-20); Calcium 7.7 mg/dl (8.5-10.1); Creatinine Clr Calc Pharmacy 18.1 ml/min; Est GFR (African American) 14.6; Est GFR (Non-African American) 12.6; Potassium 5.1 mmol/L (3.5-5.1)
[2019-05-15] MEDS ORDERED: SODIUM BICARBONATE 8.4% 150 MEQ in WATER, STERILE 1,000 ML IV SCH (23:45)
--- NOTE | 2019-05-16 00:14 | Communication Note ---
Date of Service: May 16, 2019 Requiring increase vasoactive medication, anion gap increasing, no urine output will likely require renal placement therapy. I had verbally consented the patient's daughter and son to proceed with central venous access and temporary HD catheter. I have adjusted medications and ordered additional labs.
[2019-05-16] MEDS ORDERED: ONDANSETRON INJ 2 MG/ML 2 ML VIAL IV PRN (00:18)
--- NOTE | 2019-05-16 00:56 | Procedure Note ---
Procedure Note Date of Service May 16, 2019 Note INTERNAL JUGULAR HEMODIALYSIS CATH PROCEDURE NOTE: Procedure: Internal Jugular hemodialysis catheter placement Attending: Dr. Sid Perez Provider: JODI Moura Indication: Central Drug Administration, hemodialysis Anesthesia: Lidocaine 1% Consent was signed and placed on the chart prior to procedure. Indication, risks, and benefits were explained at length. A time-out was completed verifying correct patient, procedure, site, positioning, and implants(s) or special equipment if applicable. Patients right neck was cleansed and draped in the typical sterile fashion using Chloraprep. The Internal Jugular Vein and Carotid Artery were identified using ultrasound. The superficial tissue was anesthetized using 5 mL of 1% lidocaine without epinephrine under direct visualization with the ultrasound. After adequate an esthetization was achieved, the Internal Jugular vein was cannulated under direct ultrasound guidance using an introducer needle on a syringe. Good venous blood return was maintained prior to removal of syringe from introducer needle. Using Seldinger Technique, a guide wire was advanced through the introducer needle without resistance. The introducer needle was removed and ultrasound images were obtained of the guide wire within the Internal Jugular Vein and saved to the patients medical record. A small incision was made in penetrating fashion at the guide wire insertion site utilizing an 11 blade scalpel. The dilator was advanced to the vessel without resistance. The dilator was exchanged for the hemodialysis catheter which was advanced into the vessel without resistance. The guide wire was removed intact from the catheter without issue. Confirmation of good blood flow from each lumen was confirmed. Each port was easily flushed with sterile saline. The catheter was placed at the hub and sutured in place. BioPatch was applied to the catheter and a sterile Tegaderm dressing was applied over the catheter with careful attention to sterility. Patient tolerated procedure well. No immediate complications were met. Post procedure x-ray was completed, placement was appropriate and no pneumothorax was noted. Images obtained are saved for permanent record Procedural Ultrasound Guidance: Procedure Date: 05/16/2019 Indication: Hemodialysis, central access for drug administration Attending: Dr. Sid Perez Provider: JODI Moura Artery AND Vein visualized: Yes Compressible Vein: Yes Guidewire or Short Catheter seen in vein prior to dilation: Yes Line confirmed in Vein with ultrasound: Yes Images obtained are saved for permanent record. Supervising Physician Co-Signing Physician Notes I was present and assisted with the entire procedure. Coding CPT Codes Tubes, Drains, and Vasc Access - Tubes, Drains, and Vasc Access: [id number] Insertion of cannula for hemodialysis ([id number]) Tubes, Drains, and Vasc Access - Tubes, Drains, and Vasc Access: [id number] Ultrasound Guidance For Vascular ([id number])
[2019-05-16] MEDS: SODIUM BICARBONATE 8.4% 100 MEQ in WATER, STERILE 1,000 ML IV SCH ×2 (04:00→14:26)
[2019-05-16 05:01] LABS: Base Excess ABG -6.9 mEq/L (-9-1.8); HCO3 ABG 19 mmol/L (19-24); Hematocrit (blood only) 26.4 % (42-52); Hemoglobin 8.8 g/dL (14.0-18.0); Mean Corpuscular Hemoglobin 30.8 pg (25-34); Mean Corpuscular Hgb Conc 33.3 g/dL (32-36); Mean Corpuscular Volume 92.3 fL (80-100); Mean Platelet Volume 11.5 fL (7.4-10.4); PCO2 ABG 40 mmHg (35-46); PO2 ABG 71 mm/Hg (80-95); Platelet Count 131 K/uL (130-400); RDW Coefficient of Variation 14.6 % (11.5-14.5); RDW Standard Deviation 49.3 fL (36.4-46.3); Red Blood Count 2.86 M/uL (4.7-6.1); White Blood Count 11.99 K/uL (4.8-10.8)
[2019-05-16 05:02] LABS: Allen Test POS (Pos)
[2019-05-16 05:19] LABS: Albumin Level 1.9 gm/dl (3.4-5.0); BUN Creatinine Ratio 14.4 (10-20); Bilirubin Direct 0.6 mg/dl (0-0.2); Calcium 7.6 mg/dl (8.5-10.1); Creatinine Clr Calc Pharmacy 17.3 ml/min; Est GFR (African American) 13.9; Magnesium 2.2 mg/dl (1.8-2.4); Potassium 5.4 mmol/L (3.5-5.1)
[2019-05-16] MEDS: NOREPINEPHRINE BIT INJ 8 MG in DEXTROSE 5% 500 ML IV SCH ×5 (05:26→22:15)
[2019-05-16 05:27] LABS: Basophils # (auto) 0.01 K/uL (0-0.2); Basophils % (auto) 0.1 %; Echinocytes 1+; Immature Granulocytes # (auto) 0.93 K/uL (0.00-0.02); Immature Granulocytes % (auto) 7.8 %; Lymphocytes # (auto) 0.66 K/uL (1.2-3.4); Lymphocytes % (auto) 5.5 %; Monocytes # (auto) 0.79 K/uL (0.11-0.59); Monocytes % (auto) 6.6 %; Toxic Vacuolation 1+
[2019-05-16 05:28] LABS: Phosphorus 5.1 mg/dl (2.5-4.9); Total Protein 5.1 gm/dl (6.4-8.2)
--- NOTE | 2019-05-16 06:30 | Critical Care Progress Note ---
Date of Service May 16, 2019 Assessment & Plan (1) Post-operative state: Reason Critically Ill: 78-year-old male here with a PMHx significant for dCHF, MR, CKD3, PAD, and DM who presented with an incarcerated hernia with SBO and aspiration of emisis and who was admitted for ARDS and ARF. Neuro - CAM ICU: POSITIVE Sedation: Propofol off. Versed 1mg IV PRN if needed. Pt has delayed clearance of metabolites. Analgesia: Fentanyl 50mcg/hr OCD - Fluvoxamine held Cardiac - CAD - Continue ASA, pravastatin CHF - Chest XR shows persistent but improving congestive failure/fluid overload - Per cards: Known nonobstructive coronary artery disease. Cardiac catheterization performed 2009 noted a 50% proximal LAD stenosis. Resume medical management when able. Afib - The patient atrial dysrhythmia is adequately rate controlled. TIRE MOLDER metoprolol tartrate, amlodipine held 2/2 hypotension/pressors. - Eliquis held Respiratory - Acute Hypoxic Respiratory Failure 2/2 Aspiration PNA/ARDS - ARDS protocol (high peep, low FiO2, low tidal) - FiOw 30%, PEEP 12, rate 24, volume 450 - Continue Pip/Tazo 4.5g q12h - Methylpred 60mg IV x1 day given - Trend ABGs GI - Incarcerated inguinal hernia with SBO obstruction s/p SBO resection and hernia repair - Abdomen continues to be soft on exam - Lactate elevated postop (5.7 from 6.0), continue to trend - Uptrending WBC to 11.99, increasing pressor requirements. ?Source control/ischemic bowel. Discussed with family, they DO NOT want further surgical intervention. - Continue Pip-tazo - Further recommendations per gen surgery team. RENAL/LYTES - DAVEY on CKD - Cr to 3.8 on admission, baseline 2.2. 4.43 today - K increased to 5.4 - Dialysis catheter placed - Pending dialysis today. CRRT versus intermittent dialysis discussed at length with pt's family. They do not want to transfer him at this time, and recognize that intermittent dialysis will likely be poorly tolerated especially given his increasing pressor requirements. They would like to give intermittent dialysis a try given that they feel transfer and CRRT are not within goals of care, and that if he does not improve with or is not able to tolerate dialysis then they would not want to prolong his . - Nephro consulted - BMP daily - Replace lytes as needed. - Toribio in place Strict I&Os ENDO - T2DM - Last A1C 5.6% - ICU hyperglycemia protocol - SSI, glucose checks AC/HS HEME - Stable H&H. ID - Aspiration PNA and s/p SB resection as above - Continue pip-tazo as above - Leukocytosis uptrended to 11.9 from 2 today. ?Source control as noted above. - Blood cultures ngtd - Afebrile INTEGUMENTARY - - Surgical incision C/D/I LINES/IV ACCESS - PIVs intact. DVT PROPHYLAXIS - - Pharmacoprophylaxis held in postoperative setting Dispo: Intermittent dialysis trial, family DOES NOT want any further surgical intervention. See GI section of note. Thank you for allowing us to be part of this patient's care. Please refer to Dr. Park's documentation for any further recommendations. (2) Gram-negative bacteremia: (3) Lactic acidosis: (4) DVT prophylaxis: (5) Admitted to intensive care unit: (6) DNR (do not resuscitate): (7) Acute respiratory distress syndrome (ARDS): (8) Pneumonitis due to inhalation of food or vomitus: (9) Mitral regurgitation: (10) Diastolic dysfunction: (11) Hypoxia: (12) Type 2 diabetes mellitus: (13) Edema: (14) Hypertension: (15) Stage 3 chronic kidney disease: Supervising Physician Co-Signing Physician Notes Patient seen and examined. EMR reviewed. Discussed on multidisciplinary rounds and with family on several occasions at bedside as well as ICU nurses and housestaff. Impression 78-year-old male status post emergent laparotomy for incarcerated hernia with ischemic bowel. Aspirated on anesthesia induction and brought to the ICU. Overnight he is developed progressive shock requiring increasing doses of vasopressors. He remains anuric. We have been able to make some progress weaning his ventilator and his chest x-ray appears somewhat I had a long and extensive conversations with the patient's spouse and daughter at bedside as well as with son on the phone. They are quite clear that their father has indicated a desire to not pursue renal replacement in the past. He has been followed by nephrology but has declined dialysis previously. I advised them that without dialysis, this is likely a terminal event as the patient is an uric having issues with acid-base status and electrolyte abnormalities and continuing to demonstrate hemodynamic instability. Given his need for pressors I discussed the option of transferring him to a center where [facility] would be available. They would like to keep the patient here and would like to see if the patient could tolerate conventional hemodialysis here. If we are unable to perform conventional dialysis here, they are comfortable proceeding with terminal extubation and palliative care. In addition the patient has aggressive lactic acidosis and shock. This is suggestive that the patient may have persistent ongoing intra-abdominal processes and we have not obtained source control. Patient's is quite adamant that she would not agree to any additional surgery. Therefore I will defer any additional imaging studies as it is a moot point. We will continue antibiotics for now. We did replace his arterial line as it was felt to be dampened. His arterial pressures are somewhat low. This is necessitated increasing his vasopressor doses. Family does understand the gravity of the patient's current situation. Subjective Subjective limted by ETT and sedation. Review of Systems Review of Systems: Unobtainable due to endotracheal tube Physical Exam Physical Exam: General: Intubated, Sedated. HEENT: Atraumatic, normocephalic. PERLAA. Anicteric sclera. ETT in place. Pulm: Diffuse crackles bilaterally. Symmetrical chest rise. on vent 30%/[id number]/rr24/[id number] Cardiac: RRR, -mrg. Radial pulses intact and symmetrical. : Toribio in place, minimal UOP Abdominal: Nontender, nondistended, soft. BS decreased. Surgical dressing in place in midlow infraumbilical abdomen. C/D/I. Results & Data Vital Signs (Past 12 Hours) Vital Signs Temp Pulse Pulse Resp BP BP Pulse Ox 05/16/19 05:55 82 24 96 05/16/19 04:15 82 112/48 L 97 05/16/19 04:14 79 103/50 L 96 05/16/19 04:13 82 96 05/16/19 04:12 83 109/47 L 96 05/16/19 04:11 81 112/48 L 96 05/16/19 04:10 82 112/46 L 97 05/16/19 04:09 78 112/48 L 96 05/16/19 04:08 81 113/48 L 96 05/16/19 04:07 78 112/46 L 96 05/16/19 04:06 81 114/50 L 96 05/16/19 04:05 80 111/45 L 96 05/16/19 04:04 81 113/44 L 96 05/16/19 04:03 80 109/45 L 96 05/16/19 04:02 85 109/46 L 96 05/16/19 04:01 83 110/47 L 97 05/16/19 04:00 37.6 C H 80 80 24 114/50 L 114/50 L 96 05/16/19 03:59 80 114/46 L 96 05/16/19 03:57 81 109/48 L 96 05/16/19 03:56 82 110/50 L 96 05/16/19 03:55 82 110/46 L 96 05/16/19 03:54 84 111/47 L 96 05/16/19 03:53 79 112/42 L 96 05/16/19 03:51 84 112/44 L 96 05/16/19 03:50 84 113/47 L 96 05/16/19 03:49 80 111/47 L 96 05/16/19 03:47 84 115/47 L 96 05/16/19 03:46 83 96 05/16/19 03:45 83 124/50 L 97 05/16/19 03:44 82 116/46 L 96 05/16/19 03:43 84 119/48 L 97 05/16/19 03:42 82 124/51 L 96 05/16/19 03:41 83 97 05/16/19 03:40 82 114/47 L 96 05/16/19 03:39 82 119/50 L 96 05/16/19 03:38 80 109/49 L 95 05/16/19 03:37 80 119/48 L 96 05/16/19 03:36 81 113/44 L 97 05/16/19 03:35 80 111/46 L 96 05/16/19 03:34 81 116/49 L 96 05/16/19 03:33 79 109/44 L 96 05/16/19 03:32 81 108/45 L 96 05/16/19 03:31 81 102/46 L 96 05/16/19 03:30 79 105/45 L 96 05/16/19 03:29 79 112/47 L 96 05/16/19 03:28 83 112/44 L 96 05/16/19 03:27 81 95 05/16/19 03:26 83 107/46 L 96 05/16/19 03:25 80 107/47 L 96 05/16/19 03:24 81 106/41 L 96 05/16/19 03:23 81 105/43 L 95 05/16/19 03:22 77 105/46 L 96 05/16/19 03:21 81 105/42 L 96 05/16/19 03:20 78 106/47 L 96 05/16/19 03:19 82 107/47 L 96 05/16/19 03:18 81 107/45 L 96 05/16/19 03:17 82 107/42 L 96 05/16/19 03:16 80 96 05/16/19 03:15 83 106/46 L 96 05/16/19 03:14 82 108/48 L 96 05/16/19 03:13 83 108/46 L 95 05/16/19 03:12 78 104/46 L 96 05/16/19 03:11 80 107/47 L 96 05/16/19 03:10 81 107/44 L 96 05/16/19 03:09 79 105/46 L 96 05/16/19 03:08 81 107/45 L 96 05/16/19 03:07 79 104/45 L 96 05/16/19 03:06 82 106/46 L 96 05/16/19 03:05 83 104/46 L 96 05/16/19 03:04 83 96 05/16/19 03:03 78 105/47 L 96 05/16/19 03:02 79 110/47 L 96 05/16/19 03:01 81 107/48 L 95 05/16/19 03:00 81 111/46 L 96 05/16/19 02:59 80 102/46 L 96 05/16/19 02:58 80 102/46 L 96 05/16/19 02:57 82 112/48 L 96 05/16/19 02:56 80 109/45 L 96 05/16/19 02:55 85 108/44 L 96 05/16/19 02:54 82 114/48 L 96 05/16/19 02:53 77 107/45 L 96 05/16/19 02:46 84 96 05/16/19 02:45 82 108/43 L 96 05/16/19 02:32 82 109/46 L 96 05/16/19 02:30 81 98 05/16/19 02:15 81 95 05/16/19 02:01 81 96 05/16/19 02:00 82 102/47 L 96 05/16/19 01:50 79 96/44 L 96 05/16/19 01:45 87 96 05/16/19 01:35 81 24 95 05/16/19 01:30 87 96 05/16/19 01:15 88 99 05/16/19 01:01 83 95 05/16/19 01:00 85 103/46 L 96 05/16/19 00:56 86 93/49 L 96 05/16/19 00:45 88 100 05/16/19 00:30 87 92 05/16/19 00:15 84 93 05/16/19 00:01 86 95 05/16/19 00:00 36.8 C 82 88 24 128/53 L 111/51 L 95 05/15/19 23:45 85 94 05/15/19 23:31 87 94 05/15/19 23:30 88 111/51 L 94 05/15/19 23:23 88 24 95 05/15/19 23:15 85 94 05/15/19 23:01 88 94 05/15/19 23:00 83 78/46 L 95 05/15/19 22:56 86 79/43 L 95 05/15/19 22:45 89 94 05/15/19 22:31 88 94 05/15/19 22:30 90 112/48 L 94 05/15/19 22:15 92 H 94 05/15/19 22:00 36.5 C 87 104/51 L 95 05/15/19 21:55 89 24 95 05/15/19 21:30 81 102/55 L 96 05/15/19 21:00 81 107/53 L 95 05/15/19 20:31 88 94 05/15/19 20:30 84 114/59 L 94 05/15/19 20:00 36.5 C 85 102/52 L 94 05/15/19 19:30 90 110/56 L 96 05/15/19 19:00 84 113/56 L 96 Critical Care Time Critical Care Time: Yes Total Critical Care Time: 95 Resident Activity Tracking Resident Involvement: Resident Care Provided Care Provided: Adult [facility] Medicine (1) Type 2 diabetes mellitus Chronic kidney disease stage: stage 3 (moderate) Diabetes mellitus complication detail: with chronic kidney disease Diabetes mellitus complication status: with kidney complications Diabetes mellitus halfway insulin use: without halfway use Qualified Code(s): E11.22 - Type 2 diabetes mellitus with diabetic chronic kidney disease; N18.3 - Chronic kidney disease, stage 3 (moderate) (2) Hypertension Hypertension type: essential hypertension Qualified Code(s): I10 - Essential (primary) hypertension
--- NOTE | 2019-05-16 06:35 | XRay Report ---
XR chest 1V portable CLINICAL HISTORY: CVC insertion COMPARISON STUDY: 05/14/2019 FINDINGS: There is an endotracheal tube 7 cm above the jl. A nasogastric tube passes into the sto mach. There has been interval insertion of a right internal jugular central venous catheter. The tip projects over the superior vena cava. There is no pneumothorax. There is persistent but improving con gestive failure/fluid overload. IMPRESSION: 1. Interval insertion of a right internal jugular central venous catheter. No evidence of pneumothora x 2. Persistent but improving congestive failure/fluid overload Electronically signed by: Baldemar Meyers M.D. 05/16/2019 6:33 AM
[2019-05-16] MEDS: fentaNYL DRIP 1,250 MCG/250 ML BAG IV SCH (06:53)
[2019-05-16] MEDS: ALBUT/IPRATROP 3MG/0.5MG NEB 3 ML VIAL NEB SCH ×4 (07:38→19:05)
--- NOTE | 2019-05-16 07:44 | Anesthesiology Progress Note ---
Date of Service May 16, 2019 Anesthesia Post Procedure Vital Signs Vital Signs: Temp Pulse Pulse Resp BP BP BP 05/16/19 18:00 94 H 160/53 H 05/16/19 17:00 97 H 174/64 H 05/16/19 16:13 37.0 C 80 124/50 L 124/50 L 05/16/19 16:00 94 H 151/54 H 05/16/19 15:40 91 H 24 05/16/19 15:15 82 124/46 L 05/16/19 15:00 90 152/57 H 05/16/19 14:46 88 132/45 L 05/16/19 14:30 87 122/45 L 05/16/19 14:25 94 H 123/46 L 05/16/19 14:15 90 126/46 L 05/16/19 14:00 90 129/47 L 05/16/19 13:54 91 H 24 05/16/19 13:45 92 H 133/46 L 05/16/19 13:15 37.7 C H 90 05/16/19 13:00 91 H 156/55 H 05/16/19 12:00 37.7 C H 89 137/50 L 05/16/19 11:35 81 24 05/16/19 11:00 87 152/55 H 05/16/19 10:00 81 144/49 H 05/16/19 09:00 84 129/47 L 05/16/19 08:01 88 05/16/19 08:00 37.9 C H 82 133/47 L 05/16/19 07:34 79 24 05/16/19 07:00 79 117/45 L 05/16/19 06:41 80 05/16/19 05:55 82 24 05/16/19 04:15 82 112/48 L 05/16/19 04:14 79 103/50 L 05/16/19 04:13 82 05/16/19 04:12 83 109/47 L 05/16/19 04:11 81 112/48 L 05/16/19 04:10 82 112/46 L 05/16/19 04:09 78 112/48 L 05/16/19 04:08 81 113/48 L 05/16/19 04:07 78 112/46 L 05/16/19 04:06 81 114/50 L 05/16/19 04:05 80 111/45 L 05/16/19 04:04 81 113/44 L 05/16/19 04:03 80 109/45 L 05/16/19 04:02 85 109/46 L 05/16/19 04:01 83 110/47 L 05/16/19 04:00 37.6 C H 80 80 24 114/50 L 114/50 L 05/16/19 03:59 80 114/46 L 05/16/19 03:57 81 109/48 L 05/16/19 03:56 82 110/50 L 05/16/19 03:55 82 110/46 L 05/16/19 03:54 84 111/47 L 05/16/19 03:53 79 112/42 L 05/16/19 03:51 84 112/44 L 05/16/19 03:50 84 113/47 L 05/16/19 03:49 80 111/47 L 05/16/19 03:47 84 115/47 L 05/16/19 03:46 83 05/16/19 03:45 83 124/50 L 05/16/19 03:44 82 116/46 L 05/16/19 03:43 84 119/48 L 05/16/19 03:42 82 124/51 L 05/16/19 03:41 83 05/16/19 03:40 82 114/47 L 05/16/19 03:39 82 119/50 L 05/16/19 03:38 80 109/49 L 05/16/19 03:37 80 119/48 L 05/16/19 03:36 81 113/44 L 05/16/19 03:35 80 111/46 L 05/16/19 03:34 81 116/49 L 05/16/19 03:33 79 109/44 L 05/16/19 03:32 81 108/45 L 05/16/19 03:31 81 102/46 L 05/16/19 03:30 79 105/45 L 05/16/19 03:29 79 112/47 L 05/16/19 03:28 83 112/44 L 05/16/19 03:27 81 05/16/19 03:26 83 107/46 L 05/16/19 03:25 80 107/47 L 05/16/19 03:24 81 106/41 L 05/16/19 03:23 81 105/43 L 05/16/19 03:22 77 105/46 L 05/16/19 03:21 81 105/42 L 05/16/19 03:20 78 106/47 L 05/16/19 03:19 82 107/47 L 05/16/19 03:18 81 107/45 L 05/16/19 03:17 82 107/42 L 05/16/19 03:16 80 05/16/19 03:15 83 106/46 L 05/16/19 03:14 82 108/48 L 05/16/19 03:13 83 108/46 L 05/16/19 03:12 78 104/46 L 05/16/19 03:11 80 107/47 L 05/16/19 03:10 81 107/44 L 05/16/19 03:09 79 105/46 L 05/16/19 03:08 81 107/45 L 05/16/19 03:07 79 104/45 L 05/16/19 03:06 82 106/46 L 05/16/19 03:05 83 104/46 L 05/16/19 03:04 83 05/16/19 03:03 78 105/47 L 05/16/19 03:02 79 110/47 L 05/16/19 03:01 81 107/48 L 05/16/19 03:00 81 111/46 L 05/16/19 02:59 80 102/46 L 05/16/19 02:58 80 102/46 L 05/16/19 02:57 82 112/48 L 05/16/19 02:56 80 109/45 L 05/16/19 02:55 85 108/44 L 05/16/19 02:54 82 114/48 L 05/16/19 02:53 77 107/45 L 05/16/19 02:46 84 05/16/19 02:45 82 108/43 L 05/16/19 02:32 82 109/46 L 05/16/19 02:30 81 05/16/19 02:15 81 05/16/19 02:01 81 05/16/19 02:00 82 102/47 L 05/16/19 01:50 79 96/44 L 05/16/19 01:45 87 05/16/19 01:35 81 24 05/16/19 01:30 87 05/16/19 01:15 88 05/16/19 01:01 83 05/16/19 01:00 85 103/46 L 05/16/19 00:56 86 93/49 L 05/16/19 00:45 88 05/16/19 00:30 87 05/16/19 00:15 84 05/16/19 00:01 86 05/16/19 00:00 36.8 C 82 88 24 128/53 L 111/51 L 05/15/19 23:45 85 05/15/19 23:31 87 05/15/19 23:30 88 111/51 L 05/15/19 23:23 88 24 05/15/19 23:15 85 05/15/19 23:01 88 05/15/19 23:00 83 78/46 L 05/15/19 22:56 86 79/43 L 05/15/19 22:45 89 05/15/19 22:31 88 05/15/19 22:30 90 112/48 L 05/15/19 22:15 92 H 05/15/19 22:00 36.5 C 87 104/51 L 05/15/19 21:55 89 24 05/15/19 21:30 81 102/55 L 05/15/19 21:00 81 107/53 L 05/15/19 20:31 88 05/15/19 20:30 84 114/59 L 05/15/19 20:00 36.5 C 85 102/52 L 05/15/19 19:30 90 110/56 L 05/15/19 19:00 84 113/56 L Pulse Ox 05/16/19 18:00 97 05/16/19 17:00 96 05/16/19 16:13 05/16/19 16:00 96 05/16/19 15:40 96 05/16/19 15:15 05/16/19 15:00 96 05/16/19 14:46 05/16/19 14:30 05/16/19 14:25 05/16/19 14:15 05/16/19 14:00 95 05/16/19 13:54 95 05/16/19 13:45 05/16/19 13:15 05/16/19 13:00 95 05/16/19 12:00 95 05/16/19 11:35 95 05/16/19 11:00 95 05/16/19 10:00 95 05/16/19 09:00 96 05/16/19 08:01 95 05/16/19 08:00 95 05/16/19 07:34 96 05/16/19 07:00 96 05/16/19 06:41 05/16/19 05:55 96 05/16/19 04:15 97 05/16/19 04:14 96 05/16/19 04:13 96 05/16/19 04:12 96 05/16/19 04:11 96 05/16/19 04:10 97 05/16/19 04:09 96 05/16/19 04:08 96 05/16/19 04:07 96 05/16/19 04:06 96 05/16/19 04:05 96 05/16/19 04:04 96 05/16/19 04:03 96 05/16/19 04:02 96 05/16/19 04:01 97 05/16/19 04:00 96 05/16/19 03:59 96 05/16/19 03:57 96 05/16/19 03:56 96 05/16/19 03:55 96 05/16/19 03:54 96 05/16/19 03:53 96 05/16/19 03:51 96 05/16/19 03:50 96 05/16/19 03:49 96 05/16/19 03:47 96 05/16/19 03:46 96 05/16/19 03:45 97 05/16/19 03:44 96 05/16/19 03:43 97 05/16/19 03:42 96 05/16/19 03:41 97 05/16/19 03:40 96 05/16/19 03:39 96 05/16/19 03:38 95 05/16/19 03:37 96 05/16/19 03:36 97 05/16/19 03:35 96 05/16/19 03:34 96 05/16/19 03:33 96 05/16/19 03:32 96 05/16/19 03:31 96 05/16/19 03:30 96 05/16/19 03:29 96 05/16/19 03:28 96 05/16/19 03:27 95 05/16/19 03:26 96 05/16/19 03:25 96 05/16/19 03:24 96 05/16/19 03:23 95 05/16/19 03:22 96 05/16/19 03:21 96 05/16/19 03:20 96 05/16/19 03:19 96 05/16/19 03:18 96 05/16/19 03:17 96 05/16/19 03:16 96 05/16/19 03:15 96 05/16/19 03:14 96 05/16/19 03:13 95 05/16/19 03:12 96 05/16/19 03:11 96 05/16/19 03:10 96 05/16/19 03:09 96 05/16/19 03:08 96 05/16/19 03:07 96 05/16/19 03:06 96 05/16/19 03:05 96 05/16/19 03:04 96 05/16/19 03:03 96 05/16/19 03:02 96 05/16/19 03:01 95 05/16/19 03:00 96 05/16/19 02:59 96 05/16/19 02:58 96 05/16/19 02:57 96 05/16/19 02:56 96 05/16/19 02:55 96 05/16/19 02:54 96 05/16/19 02:53 96 05/16/19 02:46 96 05/16/19 02:45 96 05/16/19 02:32 96 05/16/19 02:30 98 05/16/19 02:15 95 05/16/19 02:01 96 05/16/19 02:00 96 05/16/19 01:50 96 05/16/19 01:45 96 05/16/19 01:35 95 05/16/19 01:30 96 05/16/19 01:15 99 05/16/19 01:01 95 05/16/19 01:00 96 05/16/19 00:56 96 05/16/19 00:45 100 05/16/19 00:30 92 05/16/19 00:15 93 05/16/19 00:01 95 05/16/19 00:00 95 05/15/19 23:45 94 05/15/19 23:31 94 05/15/19 23:30 94 05/15/19 23:23 95 05/15/19 23:15 94 05/15/19 23:01 94 05/15/19 23:00 95 05/15/19 22:56 95 05/15/19 22:45 94 05/15/19 22:31 94 05/15/19 22:30 94 05/15/19 22:15 94 05/15/19 22:00 95 05/15/19 21:55 95 05/15/19 21:30 96 05/15/19 21:00 95 05/15/19 20:31 94 05/15/19 20:30 94 05/15/19 20:00 94 05/15/19 19:30 96 05/15/19 19:00 96 Notes Mental Status: see notes below (Patient sedated and on Ventilator for ? Aspiration Pneumonia per RN. RN also states that throughout night when awake, patient would move all extremities and nod yes/no to questions.) Patient Amnestic to Procedure: Yes (Unsure as patient is currently sedated.) Nausea / Vomiting: adequately controlled Pain: adequately controlled (On fentanyl drip) Airway Patency, RR, SpO2: stable & adequate (Patient currently on ventilator but will breath above rate at times. SPO2 WNL. Minimal secretions being suctioned out of lungs. Lung sounds clear except rhonchi in RUL per RN.) BP & HR: stable & adequate (Patient currently on Norepinephrine drip at 0.15mcg/kg/min and had to be increased throughout night.) Hydration State: stable & adequate (Patient on Bicarb drip and to get HD today. Dialysis catheter inserted last night.) Anesthetic Complications: no major complications apparent Notes: Per RN patient is stable on current drips/ ventilator and and physician wish to start HD today. Patient is currently on sepsis protocol and tolerating well.
[2019-05-16] MEDS: PIPERACILLIN/TAZOBACTAM 4.5 GM in DEXTROSE 5% 100 ML IV SCH ×2 (08:19→19:18)
[2019-05-16] MEDS: MIDAZOLAM HCL 1 MG/ML 2ML VIAL IV PRN (08:37)
--- NOTE | 2019-05-16 09:03 | Procedure Note ---
Procedure Note Date of Service May 16, 2019 ARTERIAL LINE PROCEDURE NOTE: Procedure: Arterial Line Placement Provider: Nando Park MD Indication: Monitoring on Pressors Anesthesia: None Discussed with spouse at bedside. Verbal consent obtained A time-out was completed verifying correct patient, procedure, site, positioni ng, and implant(s) or special equipment if applicable. Allens test was performed to ensure adequate perfusion. Patients left wrist was prepped and draped in the usual sterile fashion. Ultrasound guidance was used to aid needle placement. A 20g Arrow arterial line was introduced into the left radial artery. Catheter was threaded, and the needle was removed with appropriate blood return. Good waveform was observed. The patient tolerated the procedure well. Blood Loss: Minimal Complications: None Coding CPT Codes Tubes, Drains, and Vasc Access - Tubes, Drains, and Vasc Access: [id number] Insertion Catheter, Artery ([id number])
[2019-05-16] MEDS: FAMOTIDINE 20 MG in SYRINGE 3 ML IV SCH (09:11)
[2019-05-16] MEDS ORDERED: MIDAZOLAM HCL 5 MG/ML VIAL IV STA (09:23)
--- NOTE | 2019-05-16 09:50 | Hospitalist Progress Note ---
Date of Service May 16, 2019 Assessment & Plan (1) SBO (small bowel obstruction): 2nd to strangulated inguinal hernia. POD #2 s/p reduction of hernia, small bowel resection Family declining further surgical intervention at this stage therefore no need to re-image. Worsening lactic acid poor sign of further ischemic bowel Defer management to surgery. NG tube to ILWS. (2) Strangulated inguinal hernia: as above (3) Gram-negative bacteremia: Continue IV Zosyn pending final culture and sensitivities. Likely from bowel source. (4) Acute respiratory distress syndrome (ARDS): 2nd to aspiration pneumonitis vs. pulmonary edema 2/2 acute renal failure Vent management per critical care. (5) Shock: Likely multifactorial - hypovolemic, septic (GNR bacteremia as above). Appreciate ICU management with ongoing vasopressor support (6) Lactic acidosis: 2nd to shock and ischemic bowel. Will continue to trend. (7) Acute renal failure due to tubular necrosis: No hydronephrosis on admission. HD vs. transfer to another hospital for CRRT discussed with family by Dr Park and Dr Appiah. Elected to keep patient here and try hemodialysis for now despite needing high doses of vasopressors. Oligouric. Appreciate nephrology ongoing management. (8) Diastolic heart failure: Fluid overload in setting of renal failure. Fluid management with hemodialysis as above although limited ability to take any fluid off given ongoing shock. (9) NPH (normal pressure hydrocephalus): History of such. (10) Stage 3 chronic kidney disease: With ARF 2nd ATN. Serial BMPs. (11) Atrial fibrillation: A. fib/flutter. Rates controlled. Eliquis on hold due to recent surgery. (12) PAD (peripheral artery disease): (13) Type 2 diabetes mellitus: Pharmacy to manage. (14) Obstructive sleep apnea: Noted. Current managed on ventilatory support. (15) DVT prophylaxis: SCDs. Resume chemoprophylaxis as per ICU management. Hemoglobin is downtrending however he is also at high risk of DVT/PE. GI prophylaxis with famotidine. (16) Discharge planning issues: Prognosis poor. Family aware. Not for resuscitation in the event of cardiac arrest. Subjective Patient is intubated and sedated. Requiring increasing vasopressors to maintain blood pressure. Discussed with Kisha Parker (Palliative [employer]CHO[employer] MEDIA PROGRAM DIRECTOR), Dr Appiah and family ( and daughter) at bedside regarding ongoing management. Review of Systems Review of Systems: Unobtainable due to cognitive status Physical Exam Constitutional: + ill appearing Intubated and sedated Respiratory: symmetric chest movement Auscultation: lungs clear to auscultation bilaterally (anteriorly) Cardiovascular: Rate/Rhythm: regular rate and regular rhythm Heart Sounds: no murmur Gastrointestinal (Abdomen): Inspection/Auscultation: + abnormal bowel sounds (absent) unable to determine if tender due to sedation but does appear distended Results & Data Vital Signs (Past 12 Hours) Vital Signs Temp Pulse Pulse Resp BP BP Pulse Ox 05/16/19 09:00 84 129/47 L 96 05/16/19 08:01 88 95 05/16/19 08:00 100.3 F H 82 133/47 L 95 05/16/19 07:34 79 24 96 05/16/19 07:00 79 117/45 L 96 05/16/19 05:55 82 24 96 05/16/19 04:15 82 112/48 L 97 05/16/19 04:14 79 103/50 L 96 05/16/19 04:13 82 96 05/16/19 04:12 83 109/47 L 96 05/16/19 04:11 81 112/48 L 96 05/16/19 04:10 82 112/46 L 97 05/16/19 04:09 78 112/48 L 96 05/16/19 04:08 81 113/48 L 96 05/16/19 04:07 78 112/46 L 96 05/16/19 04:06 81 114/50 L 96 05/16/19 04:05 80 111/45 L 96 05/16/19 04:04 81 113/44 L 96 05/16/19 04:03 80 109/45 L 96 05/16/19 04:02 85 109/46 L 96 05/16/19 04:01 83 110/47 L 97 05/16/19 04:00 99.7 F H 80 80 24 114/50 L 114/50 L 96 05/16/19 03:59 80 114/46 L 96 05/16/19 03:57 81 109/48 L 96 05/16/19 03:56 82 110/50 L 96 05/16/19 03:55 82 110/46 L 96 05/16/19 03:54 84 111/47 L 96 05/16/19 03:53 79 112/42 L 96 05/16/19 03:51 84 112/44 L 96 05/16/19 03:50 84 113/47 L 96 05/16/19 03:49 80 111/47 L 96 05/16/19 03:47 84 115/47 L 96 05/16/19 03:46 83 96 05/16/19 03:45 83 124/50 L 97 05/16/19 03:44 82 116/46 L 96 05/16/19 03:43 84 119/48 L 97 05/16/19 03:42 82 124/51 L 96 05/16/19 03:41 83 97 05/16/19 03:40 82 114/47 L 96 05/16/19 03:39 82 119/50 L 96 05/16/19 03:38 80 109/49 L 95 05/16/19 03:37 80 119/48 L 96 05/16/19 03:36 81 113/44 L 97 05/16/19 03:35 80 111/46 L 96 05/16/19 03:34 81 116/49 L 96 05/16/19 03:33 79 109/44 L 96 05/16/19 03:32 81 108/45 L 96 05/16/19 03:31 81 102/46 L 96 05/16/19 03:30 79 105/45 L 96 05/16/19 03:29 79 112/47 L 96 05/16/19 03:28 83 112/44 L 96 05/16/19 03:27 81 95 05/16/19 03:26 83 107/46 L 96 05/16/19 03:25 80 107/47 L 96 05/16/19 03:24 81 106/41 L 96 05/16/19 03:23 81 105/43 L 95 05/16/19 03:22 77 105/46 L 96 05/16/19 03:21 81 105/42 L 96 05/16/19 03:20 78 106/47 L 96 05/16/19 03:19 82 107/47 L 96 05/16/19 03:18 81 107/45 L 96 05/16/19 03:17 82 107/42 L 96 05/16/19 03:16 80 96 05/16/19 03:15 83 106/46 L 96 05/16/19 03:14 82 108/48 L 96 05/16/19 03:13 83 108/46 L 95 05/16/19 03:12 78 104/46 L 96 05/16/19 03:11 80 107/47 L 96 05/16/19 03:10 81 107/44 L 96 05/16/19 03:09 79 105/46 L 96 05/16/19 03:08 81 107/45 L 96 05/16/19 03:07 79 104/45 L 96 05/16/19 03:06 82 106/46 L 96 05/16/19 03:05 83 104/46 L 96 05/16/19 03:04 83 96 05/16/19 03:03 78 105/47 L 96 05/16/19 03:02 79 110/47 L 96 05/16/19 03:01 81 107/48 L 95 05/16/19 03:00 81 111/46 L 96 05/16/19 02:59 80 102/46 L 96 05/16/19 02:58 80 102/46 L 96 05/16/19 02:57 82 112/48 L 96 05/16/19 02:56 80 109/45 L 96 05/16/19 02:55 85 108/44 L 96 05/16/19 02:54 82 114/48 L 96 05/16/19 02:53 77 107/45 L 96 05/16/19 02:46 84 96 05/16/19 02:45 82 108/43 L 96 05/16/19 02:32 82 109/46 L 96 05/16/19 02:30 81 98 05/16/19 02:15 81 95 05/16/19 02:01 81 96 05/16/19 02:00 82 102/47 L 96 05/16/19 01:50 79 96/44 L 96 05/16/19 01:45 87 96 05/16/19 01:35 81 24 95 05/16/19 01:30 87 96 05/16/19 01:15 88 99 05/16/19 01:01 83 95 05/16/19 01:00 85 103/46 L 96 05/16/19 00:56 86 93/49 L 96 05/16/19 00:45 88 100 05/16/19 00:30 87 92 05/16/19 00:15 84 93 05/16/19 00:01 86 95 05/16/19 00:00 98.2 F 82 88 24 128/53 L 111/51 L 95 05/15/19 23:45 85 94 05/15/19 23:31 87 94 05/15/19 23:30 88 111/51 L 94 05/15/19 23:23 88 24 95 05/15/19 23:15 85 94 05/15/19 23:01 88 94 05/15/19 23:00 83 78/46 L 95 05/15/19 22:56 86 79/43 L 95 05/15/19 22:45 89 94 05/15/19 22:31 88 94 05/15/19 22:30 90 112/48 L 94 05/15/19 22:15 92 H 94 05/15/19 22:00 97.7 F 87 104/51 L 95 05/15/19 21:55 89 24 95 PG Care Time/CCT Total # of Minutes Spent Total Time Spent with Patient: Total time spent is greater than 50% in coordination of care (as documented) at patient's floor/unit and/or counseling patient: (1) Type 2 diabetes mellitus Chronic kidney disease stage: stage 3 (moderate) Diabetes mellitus complication detail: with chronic kidney disease Diabetes mellitus complication status: with kidney complications Diabetes mellitus residential insulin use: without intermodal dispatcher use Qualified Code(s): E11.22 - Type 2 diabetes mellitus with diabetic chronic kidney disease; N18.3 - Chronic kidney disease, stage 3 (moderate) (2) Atrial fibrillation Atrial fibrillation type: paroxysmal Qualified Code(s): I48.0 - Paroxysmal atrial fibrillation (3) Diastolic heart failure Heart failure chronicity: chronic Qualified Code(s): I50.32 - Chronic diastolic (congestive) heart failure
--- NOTE | 2019-05-16 11:10 | Palliative Care Consultation ---
Date of Consultation May 16, 2019 Assessment & Plan (1) Goals of care, counseling/discussion: -78 year old male patient with PMH afib, arthritis, DM, diastolic dysfunction, GERD, new dx normal pressure hydrocephalus, and others, presented to the hospital a few days ago with vomiting. He was found to have an incarcerated hernia and SBO. He underwent repair of the right inguinal hernia and small bowel resection, and unfortunately aspirated stomach contents in the OR. He remained intubated in the ICU and is being treated for ARDS and pneumonitis. Patient continues to be hypotensive on pressors for blood pressure support-- requiring increasing dose of Levophed. Unfortunately his renal function is worsening-- creatinine 4.43 and essentially anuric. He underwent placement of temporary dialysis catheter yesterday in anticipation of starting dialysis today, but with patient's hypotension, he may need CVVH. Nephrology consulted and discussed with family that even with CVVH, the outcome may not be favorable. Palliative care is consulted to discuss goals of care. -Met with patient, his Leticia, daughter Rose, Dr. Park, Dr. Jimenez, medical student, and Dr. Elizabeth in room 109. Patient is intubated and not able to participate in conversation. -Discussed all of patient's medical conditions with and daughter. They state that patient has a living will which states he would not want dialysis long-term, but they are feeling conflicted since this is an acute issue and amadeo ent did not have end-stage conditions prior to this episode. At the same time, patient's health was somewhat declining recently as he was diagnosed with hydrocephalus and shared with his that he was scared to undergo shunt placement, was feeling uncertain, and really did not want to spend time in hospitals, etc. -After much debate, family decided that they do NOT want to transfer to tertiary care and would like to try conventional dialysis treatment here. If patient worsens/cannot tolerate dialysis, they will transition to comfort measures only with the understanding patient will pass away. If he does tolerate and there is chance of recovery, they will take it. Dr. Park made it very clear that trying dialysis could absolutely worsen patient's condition, family is understanding. -Patient's automatic machine attendant came yesterday to bless him. Patient and have strong khris. we talked more about this and support given. -Continue full treatment for now. Patient is DNR in the event of cardiac arrest. -Palliative care will continue to follow closely. (2) Strangulated inguinal hernia: (3) SBO (small bowel obstruction): (4) Mitral regurgitation: (5) Acute respiratory distress syndrome (ARDS): (6) Gram-negative bacteremia: Supervising Physician Co-Signing Physician Notes Chart reviewed, collaborated with JODI Diaz. Patient seen and examined in room 109, patient's at bedside. reports patient just woke up-eyes are open, able to follow simple commands. tearful at bedside-wanting to ask multiple questions regarding his care. Suggested to patient's that she ask yes and no questions-have him blink once for yes and 2 for no rather than shake his head yes or no due to intubation. PE: Patient awake, able to follow simple commands HEENT: EOMI, hearing appears to be within normal limits Respirations: Patient intubated CV: Regular rate Abdomen: Soft, nontender Agree with above note, assessment and plan as per JODI Diaz-will continue to follow and assist family with medical decision making. History of Present Illness Reason for Consultation: Goals of care Requesting Physician: Dr. Perez Attending Physician: Sandro Elizabeth MD History of Present Illness This 78 year old male patient with PMH afib, arthritis, DM, diastolic dysfunction, GERD, new dx normal pressure hydrocephalus, and others, presented to the hospital a few days ago with vomiting. He was found to have an incarcerated hernia and SBO. He underwent repair of the right inguinal hernia and small bowel resection, and unfortunately aspirated stomach contents in the OR. He remained intubated in the ICU and is being treated for ARDS and pneumonitis. Patient continues to be hypotensive on pressors for blood pressure support-- requiring increasing dose of Levophed. Unfortunately his renal function is worsening-- creatinine 4.43 and essentially anuric. He underwent placement of temporary dialysis catheter yesterday in anticipation of starting dialysis today, but with patient's hypotension, he may need CVVH. Nephrology consulted and discussed with family that even with CVVH, the outcome may not be favorable. Palliative care is consulted to discuss goals of care. Thank you kindly for this consult. Palliative care team will follow as needed. Allergies Allergy/AdvReac Type Severity Reaction Status Date / Time latex Allergy Unknown LOCAL SKIN Verified 05/14/19 17:23 IRRITATION lisinopril Allergy Unknown hyperkalemi Verified 05/14/19 17:23 a sulfamethoxazole AdvReac increases Verified 05/14/19 17:23 [From Bactrim] potassium trimethoprim [From Bactrim] AdvReac increases Verified 05/14/19 17:23 potassium Home Medications Home Medications Medication Instructions Recorded Confirmed Type ascorbic acid (vitamin C) 1,000 mg PO QAM 10/08/18 05/14/19 History garlic 1,000 mg PO QAM 10/08/18 05/14/19 History multivitamin 1 tab PO QAM 10/08/18 05/14/19 History pravastatin 10 mg PO QAM 10/08/18 05/14/19 History febuxostat [Uloric] 40 mg PO QAM 12/14/18 05/14/19 History cholecalciferol (vitamin D3) 1,000 1,000 units PO QAM 01/17/19 05/14/19 History unit capsule fluvoxamine 100 mg PO HS 03/03/19 05/14/19 History apixaban 5 mg tablet 5 mg PO BID #180 tab 04/06/19 05/14/19 Rx ipratropium bromide 42 mcg (0.06 2 spray INTRANASAL BID #15 ml 04/07/19 05/14/19 Rx %) nasal spray aspirin 81 mg tablet,delayed 81 mg PO QAM 04/27/19 05/14/19 History release metoprolol tartrate 25 mg tablet 12.5 mg PO AMPM tab 04/27/19 05/14/19 History cefuroxime axetil 500 mg tablet 500 mg PO BID #20 tab 05/13/19 05/14/19 Rx amlodipine 5 mg PO QAM 05/14/19 05/14/19 History famotidine 40 mg PO QAM 05/14/19 05/14/19 History gabapentin See Rx Instructions mg PO 05/14/19 05/14/19 History DIRECTED glipizide 5 mg PO QAM 05/14/19 05/14/19 History lisinopril 5 mg PO QAM 05/14/19 05/14/19 History omega-3 fatty acids-fish oil [Fish 2,400 cap PO QAM 05/14/19 05/14/19 History Oil] plant stanol amarjit [Cholest Off] 0 mg PO BID 05/14/19 05/14/19 History torsemide 10 mg PO QAM 05/14/19 05/14/19 History vit C,S-Kn-hhfvl-lutein-zeaxan 1 tab PO BID 05/14/19 05/14/19 History [PreserVision AREDS-2] Patient History Medical History Afib Arthritis Cataracts, both eyes RIGHT EYE BEING DONE FIRST Coronary arteriosclerosis Diabetes Diastolic dysfunction GERD (gastroesophageal reflux disease) High cholesterol History of stress test 2009 [place] D/T PASSED OUT WENT TO [facility]. 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 THIS Hx of 09/2018 - SEEN IN ED - HAD CT OF HEAD - NEGATIVE Mitral regurgitation Normal pressure hydrocephalus Peripheral artery disease LEFT LEG Renal insufficiency Surgical History History of back surgery L3-L4 History of left hip replacement History of parathyroidectomy (Resolved) PARTIAL History of right hip replacement X2 Hx of hernia repair Family History Father Myocardial infarction Mother Gout CHF (congestive heart failure) Social History Preferred Language: Sami Communication Ability: Unable Family Protection Specialist Required: No Beliefs That Will Affect Care: None Current Living Situation: Spouse Feels Safe at Home: Yes Smoking Status: Former smoker Tobacco Type: cigarettes ; Second Hand Exposure: No ; Hx Alcohol Use: No Hx Substance Use: No Review of Systems Review of Systems: Unobtainable due to endotracheal tube Physical Exam 2 Constitutional: + ill appearing (acutely) ENMT: external ear and nose normal, oropharynx normal Respiratory: Auscultation: + diminished lung sounds on mechanical ventilator Cardiovascular: Rate/Rhythm: regular rate and regular rhythm Gastrointestinal (Abdomen): Inspection/Auscultation: + hypoactive bowel sounds Percussion/Palpation: abdomen soft Neurologic: moves all extremities (does follow one step commands) Results & Data Vital Signs (Past 12 Hours) Vital Signs Temp Pulse Pulse Resp BP BP Pulse Ox 05/16/19 10:00 81 144/49 H 95 11/25/19 09:00 84 129/47 L 96 05/16/19 08:01 88 95 05/16/19 08:00 37.9 C H 82 133/47 L 95 05/16/19 07:34 79 24 96 05/16/19 07:00 79 117/45 L 96 05/16/19 06:41 80 05/16/19 05:55 82 24 96 05/16/19 04:15 82 112/48 L 97 05/16/19 04:14 79 103/50 L 96 05/16/19 04:13 82 96 05/16/19 04:12 83 109/47 L 96 05/16/19 04:11 81 112/48 L 96 05/16/19 04:10 82 112/46 L 97 05/16/19 04:09 78 112/48 L 96 05/16/19 04:08 81 113/48 L 96 05/16/19 04:07 78 112/46 L 96 05/16/19 04:06 81 114/50 L 96 05/16/19 04:05 80 111/45 L 96 05/16/19 04:04 81 113/44 L 96 05/16/19 04:03 80 109/45 L 96 05/16/19 04:02 85 109/46 L 96 05/16/19 04:01 83 110/47 L 97 05/16/19 04:00 37.6 C H 80 80 24 114/50 L 114/50 L 96 05/16/19 03:59 80 114/46 L 96 05/16/19 03:57 81 109/48 L 96 05/16/19 03:56 82 110/50 L 96 05/16/19 03:55 82 110/46 L 96 05/16/19 03:54 84 111/47 L 96 05/16/19 03:53 79 112/42 L 96 05/16/19 03:51 84 112/44 L 96 05/16/19 03:50 84 113/47 L 96 05/16/19 03:49 80 111/47 L 96 05/16/19 03:47 84 115/47 L 96 05/16/19 03:46 83 96 05/16/19 03:45 83 124/50 L 97 05/16/19 03:44 82 116/46 L 96 05/16/19 03:43 84 119/48 L 97 05/16/19 03:42 82 124/51 L 96 05/16/19 03:41 83 97 05/16/19 03:40 82 114/47 L 96 05/16/19 03:39 82 119/50 L 96 05/16/19 03:38 80 109/49 L 95 05/16/19 03:37 80 119/48 L 96 05/16/19 03:36 81 113/44 L 97 05/16/19 03:35 80 111/46 L 96 05/16/19 03:34 81 116/49 L 96 05/16/19 03:33 79 109/44 L 96 05/16/19 03:32 81 108/45 L 96 05/16/19 03:31 81 102/46 L 96 05/16/19 03:30 79 105/45 L 96 05/16/19 03:29 79 112/47 L 96 05/16/19 03:28 83 112/44 L 96 05/16/19 03:27 81 95 05/16/19 03:26 83 107/46 L 96 05/16/19 03:25 80 107/47 L 96 05/16/19 03:24 81 106/41 L 96 05/16/19 03:23 81 105/43 L 95 05/16/19 03:22 77 105/46 L 96 05/16/19 03:21 81 105/42 L 96 05/16/19 03:20 78 106/47 L 96 05/16/19 03:19 82 107/47 L 96 05/16/19 03:18 81 107/45 L 96 05/16/19 03:17 82 107/42 L 96 05/16/19 03:16 80 96 05/16/19 03:15 83 106/46 L 96 05/16/19 03:14 82 108/48 L 96 05/16/19 03:13 83 108/46 L 95 05/16/19 03:12 78 104/46 L 96 05/16/19 03:11 80 107/47 L 96 05/16/19 03:10 81 107/44 L 96 05/16/19 03:09 79 105/46 L 96 05/16/19 03:08 81 107/45 L 96 05/16/19 03:07 79 104/45 L 96 05/16/19 03:06 82 106/46 L 96 05/16/19 03:05 83 104/46 L 96 05/16/19 03:04 83 96 05/16/19 03:03 78 105/47 L 96 05/16/19 03:02 79 110/47 L 96 05/16/19 03:01 81 107/48 L 95 05/16/19 03:00 81 111/46 L 96 05/16/19 02:59 80 102/46 L 96 05/16/19 02:58 80 102/46 L 96 05/16/19 02:57 82 112/48 L 96 05/16/19 02:56 80 109/45 L 96 05/16/19 02:55 85 108/44 L 96 05/16/19 02:54 82 114/48 L 96 05/16/19 02:53 77 107/45 L 96 05/16/19 02:46 84 96 05/16/19 02:45 82 108/43 L 96 05/16/19 02:32 82 109/46 L 96 05/16/19 02:30 81 98 05/16/19 02:15 81 95 05/16/19 02:01 81 96 05/16/19 02:00 82 102/47 L 96 05/16/19 01:50 79 96/44 L 96 05/16/19 01:45 87 96 05/16/19 01:35 81 24 95 05/16/19 01:30 87 96 05/16/19 01:15 88 99 05/16/19 01:01 83 95 05/16/19 01:00 85 103/46 L 96 05/16/19 00:56 86 93/49 L 96 05/16/19 00:45 88 100 05/16/19 00:30 87 92 05/16/19 00:15 84 93 05/16/19 00:01 86 95 05/16/19 00:00 36.8 C 82 88 24 128/53 L 111/51 L 95 05/15/19 23:45 85 94 05/15/19 23:31 87 94 05/15/19 23:30 88 111/51 L 94 05/15/19 23:23 88 24 95 05/15/19 23:15 85 94 PG Care Time/CCT Prolonged Care Time Prolonged Care Time: Yes Total Prolonged Care Time: 100 Time Spent Midlevel 100 minutes with >50% of time spent at bedside with patient, family, and ICU team discussing condition and GOC.
--- NOTE | 2019-05-16 12:09 | Nephrology Progress Note ---
Date of Service May 16, 2019 Assessment & Plan (1) Acute respiratory distress syndrome (ARDS): (2) Incarcerated inguinal hernia: (3) Coronary arteriosclerosis: (4) Atrial fibrillation: (5) Diastolic heart failure: (6) Acute kidney injury: DAVEY on CKD, in the setting of laparotomy for incarcerated hernia. Baseline creatinine 2.1 mg/dL. Clinical presentation consistent with ATN. CT did not demonstrate obstruction. UA with RBC/WBCs and protein in setting of Toribio catheter. Renal function continues to worsen, remain pretty much anuric over last more than 24 hours. Renal function continues to worsen with significant electrolyte abnormality including hyperkalemia and metabolic acidosis. Clinically declining with need for higher dose of pressor to maintain blood pressure. --discussed in detail with and daughter including a regarding options including trying dialysis here as family decided to do renal replacement therapy. Discussed also other option including transferring to a tertiary care facility for CR RT considering hemodynamic instability. Discussed in detail that long-term outcome will not be much different with either form of dialysis considering other see his comorbidities. Family discussed in considering different options the decided to not transfer him and try intermittent dialysis here. --will try 2 hours dialysis today with low blood flow and minimum UF --dose medications for GFR less than 10. Document strict I/O's. Will follow Subjective Tyler was seen and examined with his Leticia and daughter at bedside. He was intubated and sedated. Blood pressure was low on higher dose of vasopressin. Remained anuric, renal function continues to worsen with hyperkalemia and metabolic acidosis. Review of Systems Review of Systems: Unobtainable due to endotracheal tube Physical Exam Constitutional: + ill appearing Remained intubated and sedated. Respiratory: no respiratory distress Auscultation: + diminished lung sounds Cardiovascular: RRR, no murmur, no edema Neurologic: Could not be assessed as patient remained sedated. Results & Data Vital Signs (Past 12 Hours) Vital Signs Temp Pulse Pulse Resp BP BP Pulse Ox 05/16/19 11:35 81 24 95 05/16/19 10:00 81 144/49 H 95 05/16/19 09:00 84 129/47 L 96 05/16/19 08:01 88 95 05/16/19 08:00 37.9 C H 82 133/47 L 95 05/16/19 07:34 79 24 96 05/16/19 07:00 79 117/45 L 96 05/16/19 06:41 80 05/16/19 05:55 82 24 96 05/16/19 04:15 82 112/48 L 97 05/16/19 04:14 79 103/50 L 96 05/16/19 04:13 82 96 05/16/19 04:12 83 109/47 L 96 05/16/19 04:11 81 112/48 L 96 05/16/19 04:10 82 112/46 L 97 05/16/19 04:09 78 112/48 L 96 05/16/19 04:08 81 113/48 L 96 05/16/19 04:07 78 112/46 L 96 05/16/19 04:06 81 114/50 L 96 05/16/19 04:05 80 111/45 L 96 05/16/19 04:04 81 113/44 L 96 05/16/19 04:03 80 109/45 L 96 05/16/19 04:02 85 109/46 L 96 05/16/19 04:01 83 110/47 L 97 05/16/19 04:00 37.6 C H 80 80 24 114/50 L 114/50 L 96 05/16/19 03:59 80 114/46 L 96 05/16/19 03:57 81 109/48 L 96 05/16/19 03:56 82 110/50 L 96 05/16/19 03:55 82 110/46 L 96 05/16/19 03:54 84 111/47 L 96 05/16/19 03:53 79 112/42 L 96 05/16/19 03:51 84 112/44 L 96 05/16/19 03:50 84 113/47 L 96 05/16/19 03:49 80 111/47 L 96 05/16/19 03:47 84 115/47 L 96 05/16/19 03:46 83 96 05/16/19 03:45 83 124/50 L 97 05/16/19 03:44 82 116/46 L 96 05/16/19 03:43 84 119/48 L 97 05/16/19 03:42 82 124/51 L 96 05/16/19 03:41 83 97 05/16/19 03:40 82 114/47 L 96 05/16/19 03:39 82 119/50 L 96 05/16/19 03:38 80 109/49 L 95 05/16/19 03:37 80 119/48 L 96 05/16/19 03:36 81 113/44 L 97 05/16/19 03:35 80 111/46 L 96 05/16/19 03:34 81 116/49 L 96 05/16/19 03:33 79 109/44 L 96 05/16/19 03:32 81 108/45 L 96 05/16/19 03:31 81 102/46 L 96 05/16/19 03:30 79 105/45 L 96 05/16/19 03:29 79 112/47 L 96 05/16/19 03:28 83 112/44 L 96 05/16/19 03:27 81 95 05/16/19 03:26 83 107/46 L 96 05/16/19 03:25 80 107/47 L 96 05/16/19 03:24 81 106/41 L 96 05/16/19 03:23 81 105/43 L 95 05/16/19 03:22 77 105/46 L 96 05/16/19 03:21 81 105/42 L 96 05/16/19 03:20 78 106/47 L 96 05/16/19 03:19 82 107/47 L 96 05/16/19 03:18 81 107/45 L 96 05/16/19 03:17 82 107/42 L 96 05/16/19 03:16 80 96 05/16/19 03:15 83 106/46 L 96 05/16/19 03:14 82 108/48 L 96 05/16/19 03:13 83 108/46 L 95 05/16/19 03:12 78 104/46 L 96 05/16/19 03:11 80 107/47 L 96 05/16/19 03:10 81 107/44 L 96 05/16/19 03:09 79 105/46 L 96 05/16/19 03:08 81 107/45 L 96 05/16/19 03:07 79 104/45 L 96 05/16/19 03:06 82 106/46 L 96 05/16/19 03:05 83 104/46 L 96 05/16/19 03:04 83 96 05/16/19 03:03 78 105/47 L 96 05/16/19 03:02 79 110/47 L 96 05/16/19 03:01 81 107/48 L 95 05/16/19 03:00 81 111/46 L 96 05/16/19 02:59 80 102/46 L 96 05/16/19 02:58 80 102/46 L 96 05/16/19 02:57 82 112/48 L 96 05/16/19 02:56 80 109/45 L 96 05/16/19 02:55 85 108/44 L 96 05/16/19 02:54 82 114/48 L 96 05/16/19 02:53 77 107/45 L 96 05/16/19 02:46 84 96 05/16/19 02:45 82 108/43 L 96 05/16/19 02:32 82 109/46 L 96 05/16/19 02:30 81 98 05/16/19 02:15 81 95 05/16/19 02:01 81 96 05/16/19 02:00 82 102/47 L 96 05/16/19 01:50 79 96/44 L 96 05/16/19 01:45 87 96 05/16/19 01:35 81 24 95 05/16/19 01:30 87 96 05/16/19 01:15 88 99 05/16/19 01:01 83 95 05/16/19 01:00 85 103/46 L 96 05/16/19 00:56 86 93/49 L 96 05/16/19 00:45 88 100 05/16/19 00:30 87 92 05/16/19 00:15 84 93 PG Care Time/CCT Total # of Minutes Spent Total Time Spent with Patient: Total time spent is greater than 50% in coordination of care (as documented) at patient's floor/unit and/or counseling patient: (1) Atrial fibrillation Atrial fibrillation type: paroxysmal Qualified Code(s): I48.0 - Paroxysmal atrial fibrillation (2) Diastolic heart failure Heart failure chronicity: chronic Qualified Code(s): I50.32 - Chronic diastolic (congestive) heart failure
--- NOTE | 2019-05-16 14:50 | Billing Data ---
Coding Level of Care Code Critical Care 1st 30-74 mins Time Spent (min) 90 Comment 90 min CC time, code 78743 and [id number] See resident note with attending comments. Course Vital Signs Pulse Rate 77 05/14/19 16:09 Respiratory Rate 25 H 05/14/19 16:09 Blood Pressure 170/69 H 05/14/19 16:09 Pulse Oximetry 97 05/14/19 16:09 Temperature 37.7 C H 05/16/19 13:15 Pulse Rate 87 05/16/19 14:30 Respiratory Rate 24 05/16/19 13:54 Blood Pressure 122/45 L 05/16/19 14:30 Pulse Oximetry 95 05/16/19 14:00 cutting and splicing supervisor notes in FP note
[2019-05-16 15:24] LABS: Hepatitis B Surface Ab Quant < 3.10 mIU/mL (>or=10mIU/mL Immune); Hepatitis B Surface Antibody Non-Immune
[2019-05-16 15:35] LABS: Hepatitis B Surface Antigen Neg (Neg)
--- NOTE | 2019-05-16 16:32 | Surgery Progress Note ---
Date of Service May 16, 2019 Assessment & Plan (1) Incarcerated inguinal hernia: Postoperative day #2 status post repair of recurrent right strangulated inguinal hernia Patient is requiring increasing doses of pressors although it may be related to the dialysis required for his DAVEY Has respiratory failure as well I had a long discussion with the patient's and with the patient's daughter. The do not want additional surgical intervention If dialysis is required for a prolonged period of time the stated that they would not want that either. They understand the gravity of the situation with the escalating requirement for pressor support and the need for dialysis. Prognosis very poor Subjective Postoperative day #2 status post repair of incarcerated/strangulated right recurrent inguinal hernia with small bowel resection. The patient remains intubated and sedated He required dialysis which is ongoing at the present time He continues to require escalating pressor support White blood cell count was noted to be increased today as well as his lactate Physical Exam Gastrointestinal (Abdomen): Inspection/Auscultation: + hypoactive bowel sounds (Absent); abdomen not distended Percussion/Palpation: + abdomen tender (Unable to determine due to sedation for ventilation) and abdomen soft Results & Data Vital Signs (Past 12 Hours) Vital Signs Temp Pulse Pulse Resp BP BP BP 05/16/19 16:13 37.0 C 80 124/50 L 124/50 L 05/16/19 15:40 91 H 24 05/16/19 15:15 82 124/46 L 05/16/19 15:00 90 152/57 H 05/16/19 14:46 88 132/45 L 05/16/19 14:30 87 122/45 L 05/16/19 14:25 94 H 123/46 L 05/16/19 14:15 90 126/46 L 05/16/19 14:00 90 129/47 L 05/16/19 13:54 91 H 24 05/16/19 13:45 92 H 133/46 L 05/16/19 13:15 37.7 C H 90 05/16/19 13:00 91 H 156/55 H 05/16/19 12:00 37.7 C H 89 137/50 L 05/16/19 11:35 81 24 05/16/19 11:00 87 152/55 H 05/16/19 10:00 81 144/49 H 05/16/19 09:00 84 129/47 L 11/25/19 08:01 88 05/16/19 08:00 37.9 C H 82 133/47 L 05/16/19 07:34 79 24 05/16/19 07:00 79 117/45 L 05/16/19 06:41 80 05/16/19 05:55 82 24 Pulse Ox 05/16/19 16:13 05/16/19 15:40 96 05/16/19 15:15 05/16/19 15:00 96 05/16/19 14:46 05/16/19 14:30 05/16/19 14:25 05/16/19 14:15 05/16/19 14:00 95 05/16/19 13:54 95 05/16/19 13:45 05/16/19 13:15 05/16/19 13:00 95 05/16/19 12:00 95 05/16/19 11:35 95 05/16/19 11:00 95 05/16/19 10:00 95 05/16/19 09:00 96 05/16/19 08:01 95 05/16/19 08:00 95 05/16/19 07:34 96 05/16/19 07:00 96 05/16/19 06:41 05/16/19 05:55 96
[2019-05-16 20:43] LABS: BUN Creatinine Ratio 15.6 (10-20); Calcium 7.9 mg/dl (8.5-10.1); Creatinine Clr Calc Pharmacy 20.7 ml/min; Est GFR (African American) 16.7; Est GFR (Non-African American) 14.4; Magnesium 1.9 mg/dl (1.8-2.4); Potassium 4.6 mmol/L (3.5-5.1)
[2019-05-17] MEDS: MIDAZOLAM HCL 1 MG/ML 2ML VIAL IV PRN (00:22)
[2019-05-17] MEDS: SODIUM BICARBONATE 8.4% 100 MEQ in WATER, STERILE 1,000 ML IV SCH (00:22)
[2019-05-17] MEDS: NOREPINEPHRINE BIT INJ 8 MG in DEXTROSE 5% 500 ML IV SCH ×2 (03:27→10:53)
[2019-05-17 04:16] LABS: Hematocrit (blood only) 22.1 % (42-52); Hemoglobin 7.5 g/dL (14.0-18.0); Mean Corpuscular Hemoglobin 30.4 pg (25-34); Mean Corpuscular Hgb Conc 33.9 g/dL (32-36); Mean Corpuscular Volume 89.5 fL (80-100); Mean Platelet Volume 10.2 fL (7.4-10.4); Nucleated RBC # (auto) 0.03 K/uL (0-0); Nucleated RBC % (auto) 0.2 %; Platelet Count 117 K/uL (130-400); RDW Coefficient of Variation 14.5 % (11.5-14.5); RDW Standard Deviation 47.4 fL (36.4-46.3); Red Blood Count 2.47 M/uL (4.7-6.1); White Blood Count 15.14 K/uL (4.8-10.8)
[2019-05-17 04:21] LABS: Base Excess ABG 3.1 mEq/L (-9-1.8); HCO3 ABG 26 mmol/L (19-24); Oxygen Saturation ABG 94.6 % (90-95); PCO2 ABG 35 mmHg (35-46); PO2 ABG 85 mm/Hg (80-95)
[2019-05-17 04:22] LABS: Allen Test Pos (Pos)
[2019-05-17 04:36] LABS: Albumin Level 1.7 gm/dl (3.4-5.0); BUN Creatinine Ratio 16.1 (10-20); Calcium 7.6 mg/dl (8.5-10.1); Creatinine Clr Calc Pharmacy 19.1 ml/min; Est GFR (African American) 15.2; Est GFR (Non-African American) 13.1; Potassium 4.5 mmol/L (3.5-5.1)
[2019-05-17 04:38] LABS: Albumin Globulin Ratio 0.5 (0.9-2); Bilirubin,Total 1.1 mg/dl (0.2-1); Globulin 3.2 gm/dl (2.5-4.0); Total Protein 4.9 gm/dl (6.4-8.2)
[2019-05-17] MEDS: fentaNYL DRIP 1,250 MCG/250 ML BAG IV SCH (04:44)
[2019-05-17] MEDS ORDERED: INSULIN PROTOCOL GOAL RANGE ONE (05:08)
[2019-05-17 05:33] LABS: Dohle Bodies 1+; Immature Granulocytes # (auto) 0.28 K/uL (0.00-0.02); Immature Granulocytes % (auto) 1.8 %; Lymphocytes # (auto) 0.52 K/uL (1.2-3.4); Lymphocytes % (auto) 3.4 %; Monocytes # (auto) 1.01 K/uL (0.11-0.59); Monocytes % (auto) 6.7 %; Neutrophils # (auto) 13.33 K/uL (1.4-6.5); Neutrophils % (auto) 88.1 %
[2019-05-17] MEDS ORDERED: PHARMACY GLYCEMIC MGMT CONSULT PRN (05:50)
[2019-05-17] MEDS ORDERED: GLUCOSE 40% GEL 15 GM TUBE PO PRN (06:00)
[2019-05-17] MEDS ORDERED: GLUCAGON FOR INJ 1 MG VIAL SQ PRN (06:00)
[2019-05-17] MEDS ORDERED: INSULIN GLARGINE SOLOSTAR 100 UNITS/ML 3 ML PEN SC SCH (06:00)
[2019-05-17] MEDS ORDERED: GLUCOSE 10 TABS/TUBE PO PRN (06:00)
[2019-05-17] MEDS ORDERED: CARBOHYDRATES FOR HYPOGLYCEMIA PO PRN (06:00)
[2019-05-17] MEDS ORDERED: DEXTROSE 50% 50 ML SYRINGE IV PRN (06:00)
[2019-05-17] MEDS: INSULIN ASPART 100 UNITS/ML 3 ML PEN SC SCH ×3 (06:18→18:10)
--- NOTE | 2019-05-17 07:14 | XRay Report ---
XR chest 1V portable CLINICAL HISTORY: Respiratory failure COMPARISON STUDY: 05/16/2019 FINDINGS: The heart is at the upper limits of normal in size. There is an endotracheal tube 45 mm abo ve the jl. There is a nasogastric tube which passes into the stomach. There is a right internal j ugular central venous catheter projected over the superior vena cava. There is mild elevation of inte rstitium suggesting mild pulmonary vascular congestion. More focal airspace opacities are present the right lung base, likely presenting focal edema. There is a suspected small right pleural effusion[ IMPRESSION: 1. Satisfactory position the lines and tubes 2. Mild pulmonary vascular congestion/fluid overload 3. More focal airspace opacities at the right lung base, likely representing focal edema Electronically signed by: Baldemar Meyers M.D. 05/17/2019 7:13 AM
--- NOTE | 2019-05-17 07:16 | Critical Care Progress Note ---
Date of Service May 17, 2019 Assessment & Plan (1) Post-operative state: Reason Critically Ill: 78-year-old male here with a PMHx significant for dCHF, MR, CKD3, PAD, and DM who presented with an incarcerated hernia with SBO and aspiration of emisis and who was admitted for ARDS and ARF. Neuro - [facility] ICU: POSITIVE Sedation: Propofol resumed as below. Versed 1mg IV PRN if needed. Pt has delayed clearance of metabolites. Analgesia: Fentanyl 50mcg/hr held 2/2 AMS, mental status improved but pt became agitated and indicated pain at vent, attempted to remove. Fentanyl resume as half dose (15mcg), inadequate agitation control. Fentanyl held, propofol resumed. Altered Mental Status, improved: Suspect narcosis/metabolite buildup. Fentanyl held as above OCD - Fluvoxamine held Cardiac - CAD - Continue ASA, pravastatin CHF - Chest XR shows persistent but improving fluid overload - Per cards: Known nonobstructive coronary artery disease. Cardiac catheterization performed 2009 noted a 50% proximal LAD stenosis. Resume medical management when able. Afib - The patient atrial dysrhythmia is adequately rate controlled. SALES EXHIBITOR metoprolol tartrate, amlodipine held 2/2 hypotension/pressors. - Eliquis held postop. Hgb decreased in the setting of dialysis. Heparin 5,000u SQ Q12H started, observe for signs of bleeding Respiratory - Acute Hypoxic Respiratory Failure 2/2 Aspiration PNA/ARDS - ARDS protocol (high peep, low FiO2, low tidal) - FiOw 30%, PEEP 12, rate 24, volume 450 - Failed wean trial this morning. Reattempt in late afternoon - Continue Pip/Tazo 4.5g q12h - Trend ABGs GI - Incarcerated inguinal hernia with SBO obstruction s/p SBO resection and hernia repair - Abdomen continues to be soft on exam - Lactate elevated postop (5.7 from 6.0), now normalized at 1.9 - Uptrending WBC to 15, decreasing pressor requirements. ?Source control/ischemic bowel. Discussed with family, they do not want further surgical intervention. - Continue Pip-tazo RENAL/LYTES - DAVEY on CKD 2/2 Acute Tubular Necrosis - Cr to 3.8 on admission, baseline 2.2. Improved with dialysis, then continued to uptrend. - K increased to 5.4 predialysis, improved to 4.5 - ICal decreased, 1g CaGluconate with recheck ordered - Dialysis catheter placed. Tolerated dialysis well yesterday. 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 Pt non-oliguric with slowly increasing UOP - Nephro consulted. Per nephro dialysis for 4 hours today, minimum UF as tolerated + Bumex 4 milligram IV x1 dose + dose medications for GFR less than 10. Document strict I/O's. Appreciate recs. - BMP daily - Replace lytes as needed. - Toribio in place Strict I&Os ENDO - T2DM - Last A1C 5.6% - ICU hyperglycemia protocol - SSI, glucose checks AC/HS HEME - Stable H&H. ID - Aspiration PNA and s/p SB resection as above - Continue pip-tazo as above - Leukocytosis uptrended, ?Source control as noted above. - Blood cultures ngtd - Afebrile INTEGUMENTARY - - Surgical incision C/D/I LINES/IV ACCESS - PIVs intact. DVT PROPHYLAXIS - - DOAC held, heparin 5,000u SQ Q12H. Thank you for allowing us to be part of this patient's care. Please refer to Dr. Park's documentation for any further recommendations. Supervising Physician Co-Signing Physician Notes Patient seen and examined. Electronic medical record reviewed. Discussed with ICU nurse and family practice resident as well as overnight. Family updated at bedside. Overnight events: Patient tolerated hemodialysis yesterday. His hemodynamics have slightly stabilized. Minimal vent settings. Failed SBT this morning due to apneic episodes and shallow breathing. He is awake alert this morning. Recommendations: 1. Severe sepsis with septic shock: Continue Zosyn. Await culture data. Lactate improving. Wean pressors as tolerated. Random cortisol was checked and is normal. 2. Hypoxemic respiratory failure: Significant aspiration event during induction of general anesthesia. His chest x-ray is better and his oxygenation indices are markedly improved. We will plan on weaning to SBT as tolerated by his hemodynamics. 3. Acute on chronic renal failure: Dialysis tolerated yesterday. Plans for additional dialysis today. Per nephrology. 4. Ischemic bowel due to incarcerated hernia: Status post exploratory laparotomy with excision of bowel. Management per surgery. Bowel sounds are minimal. Will need to initiate enteric feeding as bowel function resumes. 5. Anemia: No evidence of ongoing blood loss currently. Continue to follow. Transfusion threshold would be 7 or below. 6. Respiratory alkalosis: Decreasing respiratory rate and tidal volume this morning and will follow. 7. Hyponatremia: Management per nephrology with dialysis. Continue to follow. 8. Hyperglycemia: Sliding scale insulin 47 minutes critical care time evaluating managing and stabilizing quickly ill patient Subjective Initial subject limited by AMS. Obtunded. Revisit after fentanyl held, pt opens eyes spontaneously and gestures at ETT tube. Did not pass wean trial shortly before. Pt squeezes hand on command, indicates discomfort at the vent but shakes head no to pain in abdomen. Review of Systems Review of Systems: Unobtainable due to endotracheal tube Physical Exam Physical Exam: General: Intubated, Sedated. Obtunded on first visit, agitated on second visit, comfortable but opens eyes spontaneously on third visit. HEENT: Atraumatic, normocephalic. PERLAA. Anicteric sclera. ETT in place. Pulm: Diffuse crackles bilaterally. Symmetrical chest rise. on vent AC/VC 30%/[id number]. Cardiac: RRR, -mrg. : Toribio in place, minimal UOP Abdominal: Nontender, nondistended, soft. BS decreased. Surgical site C/D/I. Extremity: Extremities puffy, +edema in upper and lower extremities bilaterally. Skin warm, dry. PT/radial pulses intact bilaterally. Results & Data Vital Signs (Past 12 Hours) Vital Signs Temp Pulse Resp BP Pulse Ox 05/17/19 06:15 70 98 05/17/19 06:01 76 98 05/17/19 06:00 69 138/60 98 05/17/19 05:45 70 99 05/17/19 05:30 71 97 05/17/19 05:15 71 99 05/17/19 05:01 74 99 05/17/19 05:00 77 120/58 L 99 05/17/19 04:45 74 99 05/17/19 04:35 75 122/55 L 100 05/17/19 04:30 74 100 05/17/19 04:26 36.8 C 05/17/19 04:15 76 98 05/17/19 04:11 77 24 99 05/17/19 04:00 78 99 05/17/19 03:45 72 99 05/17/19 03:30 76 99 05/17/19 03:15 82 98 05/17/19 03:00 73 99 05/17/19 02:45 74 99 05/17/19 02:30 74 99 05/17/19 02:15 72 100 05/17/19 02:00 74 99 05/17/19 01:45 77 99 05/17/19 01:35 77 24 99 05/17/19 01:30 74 98 05/17/19 01:15 78 98 05/17/19 01:00 77 98 05/17/19 00:45 81 98 05/17/19 00:30 86 99 05/17/19 00:15 89 95 05/17/19 00:00 36.5 C 83 97 05/16/19 23:45 87 97 05/16/19 23:20 88 26 H 98 05/16/19 23:10 81 97 05/16/19 23:01 81 97 05/16/19 23:00 82 137/56 L 97 05/16/19 22:50 82 97 05/16/19 22:40 85 96 05/16/19 22:30 83 96 05/16/19 22:20 87 96 05/16/19 22:10 88 96 05/16/19 22:01 85 96 05/16/19 22:00 86 146/59 H 96 05/16/19 21:50 88 96 05/16/19 21:40 90 96 05/16/19 21:30 94 H 96 05/16/19 21:20 94 H 25 H 99 05/16/19 21:10 94 H 100 05/16/19 21:01 89 97 05/16/19 21:00 92 H 160/63 H 97 05/16/19 20:50 89 97 05/16/19 20:45 88 99 05/16/19 20:30 91 H 97 05/16/19 20:15 92 H 97 05/16/19 20:01 91 H 97 05/16/19 20:00 37.1 C 94 H 149/56 H 97 05/16/19 19:45 94 H 97 05/16/19 19:30 95 H 97 05/16/19 19:15 94 H 97 Resident Activity Tracking Resident Involvement: Resident Care Provided Care Provided: Adult Hospital Medicine
[2019-05-17] MEDS ORDERED: INSULIN ASPART 100 UNITS/ML 3 ML PEN SC SCH (07:30)
[2019-05-17] MEDS: ALBUT/IPRATROP 3MG/0.5MG NEB 3 ML VIAL NEB SCH ×4 (08:36→19:45)
[2019-05-17] MEDS: PIPERACILLIN/TAZOBACTAM 4.5 GM in DEXTROSE 5% 100 ML IV SCH ×2 (08:43→20:45)
[2019-05-17] MEDS: FAMOTIDINE 20 MG in SYRINGE 3 ML IV SCH (08:44)
--- NOTE | 2019-05-17 09:07 | Hospitalist Progress Note ---
Date of Service May 17, 2019 Assessment & Plan (1) SBO (small bowel obstruction): 2nd to strangulated inguinal hernia. POD #3 s/p reduction of incarcerated right inguinal hernia, small bowel resection (necrotic small bowel within the hernia sac) Continue NG tube. Appreciate surgery management. Increased bowel sounds (2) Strangulated inguinal hernia: as above (3) Acute respiratory distress syndrome (ARDS): 2nd to aspiration pneumonitis vs. pulmonary edema 2/2 acute renal failure Vent management per critical care. (4) Acute respiratory failure with hypoxia: In setting of sepsis. Continues on ventilator. Appreciate ICU management (5) Gram-negative bacteremia: Citrobacter koseri blood culture positive. Urine cultures negative. Suspect from ischemic bowel in strangulated hernia. Continue IV Zosyn pending final culture and sensitivities, defer antibiotic selection to ICU team. Repeat blood cultures in a.m. to check for resolution. (6) Severe sepsis with septic shock: Likely multifactorial - septic (GNR bacteremia as above). Tolerated dialysis yesterday with no fluid removal. Managing to wean off vasopressors at present. (7) Lactic acidosis: 2nd to shock and ischemic bowel. Improved with dialysis. Unclear if still has ischemic bowel, given no further surgery as per family. (8) Acute renal failure due to tubular necrosis: No hydronephrosis on admission. Presentation consistent with ATN. Appreciate nephrology ongoing management with dialysis. Minimal increase in urine output today. Appreciate nephrology ongoing management. (9) Diastolic heart failure: Fluid overload in setting of renal failure. Fluid management with hemodialysis. (10) NPH (normal pressure hydrocephalus): History (11) Stage 3 chronic kidney disease: With ARF 2nd ATN. See treatment above. (12) Atrial fibrillation: A. fib/flutter. Rates controlled. Eliquis on hold due to DAVEY with downtrending hemoglobin. Plan to restart heparin as DVT prophylaxis dosing. If he becomes more stable would need full anticoagulation restarted. (13) PAD (peripheral artery disease): (14) Type 2 diabetes mellitus: HbA1c 5.6 in February suggests overtreatment with outpatient glipizide. Appreciate glycemic control management by pharmacy. Lantus 18 units given in a.m. NovoLog sliding scale. (15) Obstructive sleep apnea: Noted. Current managed on ventilatory support, as per ICU. If able to extubate will need CPAP/BiPAP at night. (16) DVT prophylaxis: SCDs. Discussed resuming chemoprophylaxis with ICU team (patient on Eliquis prior to admission). His hemoglobin is downtrending however no significant source of bleeding identified. He is high risk for DVT/PE. GI prophylaxis with famotidine. (17) Discharge planning issues: Prognosis remains guarded. Family aware. Not for resuscitation in the event of cardiac arrest. Subjective Patient off sedation but remains intubated after failed CPAP trials. Able to shake and nod his head but difficult to communicate. Appears to nod his head when asked about pain, from his reaction to pointing in different parts of his body he appears to be concerned about the endotracheal tube. Unable to get full history from the patient due to difficulty communicating. Discussed ongoing care with ICU team (Dr. Park and RN Lorri) Physical Exam Constitutional: no acute distress awake of sedation, on ventilator Neck: trachea midline Respiratory: symmetric chest movement Auscultation: lungs clear to auscultation bilaterally (anteriorly, on vent) Cardiovascular: Rate/Rhythm: regular rate and regular rhythm Heart Sounds: + murmur (2/6 LUSB) Extremities: normal capillary refill and + pedal edema (1+ b/l equal to knees, SCDs in place) Gastrointestinal (Abdomen): Inspection/Auscultation: + hypoactive bowel sounds (minimal) Percussion/Palpation: + abdomen tender (no grimacing from patient) and abdomen soft; no guarding and abdomen not rigid Skin: no rashes, warm and dry Neurologic: awake Psychiatric: Orientation: alert Results & Data Vital Signs (Past 12 Hours) Vital Signs Temp Pulse Resp BP Pulse Ox 05/17/19 08:01 72 99 05/17/19 08:00 99.1 F 74 138/50 L 100 05/17/19 07:00 79 138/58 L 97 05/17/19 06:15 70 98 05/17/19 06:01 76 98 05/17/19 06:00 69 138/60 98 05/17/19 05:45 70 99 05/17/19 05:30 71 97 05/17/19 05:15 71 99 05/17/19 05:01 74 99 05/17/19 05:00 77 120/58 L 99 05/17/19 04:45 74 99 05/17/19 04:35 75 122/55 L 100 05/17/19 04:30 74 100 05/17/19 04:26 98.2 F 05/17/19 04:15 76 98 05/17/19 04:11 77 24 99 05/17/19 04:00 78 99 05/17/19 03:45 72 99 05/17/19 03:30 76 99 05/17/19 03:15 82 98 05/17/19 03:00 73 99 05/17/19 02:45 74 99 05/17/19 02:30 74 99 05/17/19 02:15 72 100 05/17/19 02:00 74 99 05/17/19 01:45 77 99 05/17/19 01:35 77 24 99 05/17/19 01:30 74 98 05/17/19 01:15 78 98 05/17/19 01:00 77 98 05/17/19 00:45 81 98 05/17/19 00:30 86 99 05/17/19 00:15 89 95 05/17/19 00:00 97.7 F 83 97 05/16/19 23:45 87 97 05/16/19 23:20 88 26 H 98 05/16/19 23:10 81 97 05/16/19 23:01 81 97 05/16/19 23:00 82 137/56 L 97 05/16/19 22:50 82 97 05/16/19 22:40 85 96 05/16/19 22:30 83 96 05/16/19 22:20 87 96 05/16/19 22:10 88 96 05/16/19 22:01 85 96 05/16/19 22:00 86 146/59 H 96 05/16/19 21:50 88 96 05/16/19 21:40 90 96 05/16/19 21:30 94 H 96 05/16/19 21:20 94 H 25 H 99 05/16/19 21:10 94 H 100 PG Care Time/CCT Total # of Minutes Spent Total Time Spent with Patient: Total time spent is greater than 50% in coordination of care (as documented) at patient's floor/unit and/or counseling patient: (1) Diastolic heart failure Heart failure chronicity: chronic Qualified Code(s): I50.32 - Chronic diastolic (congestive) heart failure (2) Atrial fibrillation Atrial fibrillation type: paroxysmal Qualified Code(s): I48.0 - Paroxysmal atrial fibrillation (3) Type 2 diabetes mellitus 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
[2019-05-17 09:11] LABS: iSTAT Arterial Blood Gas HCO3 18 meg/L (19-24); iSTAT Arterial Blood Gas pCO2 41 mmHg (35-46); iSTAT Arterial Blood Gas pH 7.25 (7.35-7.45); iSTAT Arterial Blood Gas pO2 65 mmHg (80-95); iSTAT Carbon Dioxide 19 mEq/l (24-31); iSTAT FiO2 30 %; iSTAT Site Art Line
[2019-05-17 09:11] LABS: iSTAT Arterial Blood Gas HCO3 18 meg/L (19-24); iSTAT Arterial Blood Gas pCO2 41 mmHg (35-46); iSTAT Arterial Blood Gas pH 7.24 (7.35-7.45); iSTAT Arterial Blood Gas pO2 75 mmHg (80-95); iSTAT Carbon Dioxide 19 mEq/l (24-31); iSTAT FiO2 30 %; iSTAT Site Art Line
--- NOTE | 2019-05-17 09:19 | Pharmacy Report ---
Pharmacy Glycemic Short Note 2 - Date of Service May 17, 2019 - Glycemic Short BSG Results (Last 24 hours): 05/16/19 05/16/19 05/17/19 11:18 20:13 04:06 Glucose 176 H 183 H POC Glucose 117 H OUTPATIENT ANTIDIABETIC REGIMEN: * glipizide 5mg qam * A1c: 5.6% (03/16/19) ASSESSMENT: * Patient with mild hyperglycemia this morning. He has not required any insulin during this admission thus far. * Patient was given a one time dose of Lantus this morning at the time of consult * Patient is NPO and requiring pressors. He as dialyzed yesterday and will be dialyzed today. I will not plan on giving any more lantus today * Lunch BSG reasonable today, continue with current novolog scale PLAN FOR INPATIENT GLYCEMIC CONTROL: * Hold outpatient oral diabetes medications * Basal insulin * Lantus 18 units SQX1 given @ 0600 * Will reassess need for further lantus dosing tomorrow * Bolus insulin * NovoLog per scale ACHS or Q6hrs while NPO * Goal Range: Low 120 mg/dL - High 160 mg/dL * Correction Factor: 20 mg/dL/unit * Nutritional / Prandial insulin per carb ratio of 1 unit per 7 grams CHO consumed
[2019-05-17] MEDS ORDERED: SODIUM CHLORIDE 0.9% 1000ML 1,000 ML IV PRN (09:37)
[2019-05-17] MEDS ORDERED: BUMETANIDE 4 MG in SYRINGE 0 ML IV STA (09:50)
[2019-05-17] MEDS ORDERED: CALCIUM GLUCONATE 10% 1,000 MG in SODIUM CHLORIDE 0.9% 50 ML IV ONE (10:13)
--- NOTE | 2019-05-17 10:25 | Nephrology Progress Note ---
Date of Service May 17, 2019 Assessment & Plan (1) Acute kidney injury: DAVEY on CKD, in the setting of laparotomy for incarcerated hernia. Baseline creatinine 2.1 mg/dL. Clinical presentation consistent with ATN. CT did not demonstrate obstruction. UA with RBC/WBCs and protein in setting of Toribio catheter. Renal function continues to worsen, remain pretty much anuric over last more than 24 hours. Had 2 hours dialysis yesterday, tolerated well, electrolyte abnormality resolved however creatinine increased again and remain anuric. Respiratory status improving, blood pressure improved and pressor requirement decreasing. Clinically overall seems to be doing much better compared to yesterday. --dialysis for 4 hours today, minimum UF as tolerated --Bumex 4 milligram IV x1 dose now --dose medications for GFR less than 10. Document strict I/O's. Will follow Subjective Tyler was seen and examined in his room in ICU this morning with his and son at bedside. He was awake, alert and was able to respond by nodding his head. Tolerated 2 hours dialysis yesterday however no definitive sign of renal recovery yet. Respiratory status improved and requiring less FiO2 and plan for possible extubation later today. Still on pressor support but requirement has decreased significantly. Still oligo anuric. Review of Systems Review of Systems: Unobtainable due to endotracheal tube Physical Exam Constitutional: + ill appearing Remained intubated but awake and alert Respiratory: no respiratory distress Auscultation: + diminished lung sounds Cardiovascular: RRR, no murmur, no edema Results & Data Vital Signs (Past 12 Hours) Vital Signs Temp Pulse Resp BP Pulse Ox 05/17/19 09:31 72 24 99 05/17/19 08:01 72 99 05/17/19 08:00 37.3 C 74 138/50 L 100 05/17/19 07:00 79 138/58 L 97 05/17/19 06:15 70 98 05/17/19 06:01 76 98 05/17/19 06:00 69 138/60 98 05/17/19 05:45 70 99 05/17/19 05:30 71 97 05/17/19 05:15 71 99 05/17/19 05:01 74 99 05/17/19 05:00 77 120/58 L 99 05/17/19 04:45 74 99 05/17/19 04:35 75 122/55 L 100 05/17/19 04:30 74 100 05/17/19 04:26 36.8 C 05/17/19 04:15 76 98 05/17/19 04:11 77 24 99 05/17/19 04:00 78 99 05/17/19 03:45 72 99 05/17/19 03:30 76 99 05/17/19 03:15 82 98 05/17/19 03:00 73 99 05/17/19 02:45 74 99 05/17/19 02:30 74 99 05/17/19 02:15 72 100 05/17/19 02:00 74 99 05/17/19 01:45 77 99 05/17/19 01:35 77 24 99 05/17/19 01:30 74 98 05/17/19 01:15 78 98 05/17/19 01:00 77 98 05/17/19 00:45 81 98 05/17/19 00:30 86 99 05/17/19 00:15 89 95 05/17/19 00:00 36.5 C 83 97 05/16/19 23:45 87 97 05/16/19 23:20 88 26 H 98 05/16/19 23:10 81 97 05/16/19 23:01 81 97 05/16/19 23:00 82 137/56 L 97 05/16/19 22:50 82 97 05/16/19 22:40 85 96 05/16/19 22:30 83 96 PG Care Time/CCT Total # of Minutes Spent Total Time Spent with Patient: Total time spent is greater than 50% in coordination of care (as documented) at patient's floor/unit and/or counseling patient:
[2019-05-17] MEDS ORDERED: HEPARIN SOD 5,000 UNIT/0.5 ML VIAL SQ ONE (10:36)
[2019-05-17] MEDS ORDERED: PROPOFOL 1,000 MG/100 ML VIAL IV STA (11:14)
[2019-05-17] MEDS: ICU PROTOCOL FOR HYPERGLYCEMIA SCH (12:03)
--- NOTE | 2019-05-17 14:51 | Billing Data ---
Coding Level of Care Code Critical Care 1st 30-74 mins
--- NOTE | 2019-05-17 16:24 | Palliative Care Progress Note ---
Date of Service May 17, 2019 Assessment & Plan (1) Goals of care, counseling/discussion: -Patient failed CPAP trial this morning due to periods of apnea per report. His fentanyl drip was turned off and he is now fully awake-- may retry CPAP trial this afternoon. -Patient was fully awake during my visit this morning, no family at bedside. -Patient was in fact able to tolerate his dialysis treatment yesterday. He remains on levophed but the dose is no longer increasing-- in fact, is less than yesterday. Patient is making very small amount of urine. -Continuing with full treatment at this time, waiting to see if there is improvement. Patient remains critically ill. -Palliative care will continue to follow and see if there is improvement. (2) Strangulated inguinal hernia: (3) SBO (small bowel obstruction): (4) Mitral regurgitation: (5) Acute respiratory distress syndrome (ARDS): (6) Gram-negative bacteremia: Subjective Patient is not sedated this morning during my visit at 0900. NO family at bedside. Patient fully awake and moving extremities. Following commands. Remains on Levophed, but dose is not increasing. Tolerated dialysis yesterday and is making urine today. Review of Systems Review of Systems: Unobtainable due to endotracheal tube Physical Exam Constitutional: + ill appearing (acutely) ENMT: external ear and nose normal, oropharynx normal Respiratory: Auscultation: + diminished lung sounds Cardiovascular: Rate/Rhythm: regular rate and regular rhythm Gastrointestinal (Abdomen): Inspection/Auscultation: + hypoactive bowel sounds Percussion/Palpation: abdomen soft Neurologic: moves all extremities (follows commands) and awake Results & Data Vital Signs (Past 12 Hours) Vital Signs Temp Pulse Pulse Resp BP Pulse Ox 05/17/19 15:21 101 H 28 H 99 05/17/19 15:16 86 28 H 99 05/17/19 14:15 37.1 C 83 05/17/19 14:00 76 126/53 L 100 05/17/19 13:00 84 133/53 L 100 05/17/19 12:01 80 99 05/17/19 12:00 37.6 C H 81 146/68 H 99 05/17/19 11:51 74 27 H 94 05/17/19 11:00 72 124/57 L 99 05/17/19 10:00 77 136/61 95 05/17/19 09:31 72 24 99 05/17/19 09:00 79 134/54 L 95 05/17/19 08:01 72 99 05/17/19 08:00 37.3 C 74 138/50 L 100 05/17/19 07:00 79 138/58 L 97 05/17/19 06:38 75 05/17/19 06:15 70 98 05/17/19 06:01 76 98 05/17/19 06:00 69 138/60 98 05/17/19 05:45 70 99 05/17/19 05:30 71 97 05/17/19 05:15 71 99 05/17/19 05:01 74 99 05/17/19 05:00 77 120/58 L 99 05/17/19 04:45 74 99 05/17/19 04:35 75 122/55 L 100 05/17/19 04:30 74 100 05/17/19 04:26 36.8 C Supervising Physician Co-Signing Physician Notes Chart reviewed-events of the past 24 hours reviewed. Collaborated with JODI Diaz Patient's at bedside-was able to spend some time and provide support- reviewed events the past 24 hours. is very aware that he is not out of the rodriguez, appreciated being able to communicate with him when he was alert. Patient currently receiving HD PE: Patient intubated and sedated, attempting to open his eyes on several occasions-gaze unfocused. Respiratory: Intubated, appears comfortable CV: Tachycardic Abdomen: Not distended Neuro: Sedated Agree with above note, assessment and plan as per JODI Diaz. Will continue to follow and assist family with medical decision making as well as provide support. PG Care Time/CCT Prolonged Care Time Prolonged Care Time: Yes Total Prolonged Care Time: 30 65 Time Spent Midlevel 35 minutes with >50% of the time spent at bedside with patient and ICU team discussing plan of care. Attending Spent 30 minutes in addition to the 35 minutes spent by JODI for a total of 65 minutes with greater than 50% of the time at bedside discussing goals of care and providing support to patient's family.
--- NOTE | 2019-05-17 16:51 | Surgery Progress Note ---
Date of Service May 17, 2019 Assessment & Plan (1) Incarcerated inguinal hernia: Postoperative day #3 status post repair of strangulated inguinal hernia Hemodynamics improved and requiring less pressor Tolerating dialysis Peristalsis has not returned yet and would continue NG tube Respiratory and hemodynamic management as per diabetes solutions specialist team Subjective Postoperative day #3 status post repair of strangulated inguinal hernia with partial small bowel resection Vital signs and hemodynamics more stable today Only requiring small amount of levo fed CPAP trial attempted today without success Had been more alert prior to increasing sedation Had not been complaining of abdominal pain No flatus or bowel movement noted Undergoing dialysis today Urine output has improved to approximately 100 cc per shift Physical Exam Gastrointestinal (Abdomen): Inspection/Auscultation: abdomen not distended Percussion/Palpation: + abdomen tender (Unable to assess) and abdomen soft Bowel sounds absent Results & Data Vital Signs (Past 12 Hours) Vital Signs Temp Pulse Pulse Resp BP Pulse Ox 05/17/19 15:21 101 H 28 H 99 05/17/19 15:16 86 28 H 99 05/17/19 14:20 67 148/46 H 05/17/19 14:15 37.1 C 83 05/17/19 14:00 76 126/53 L 100 05/17/19 13:00 84 133/53 L 100 05/17/19 12:01 80 99 05/17/19 12:00 37.6 C H 81 146/68 H 99 05/17/19 11:51 74 27 H 94 05/17/19 11:00 72 124/57 L 99 05/17/19 10:00 77 136/61 95 05/17/19 09:31 72 24 99 05/17/19 09:00 79 134/54 L 95 05/17/19 08:01 72 99 05/17/19 08:00 37.3 C 74 138/50 L 100 05/17/19 07:00 79 138/58 L 97 05/17/19 06:38 75 05/17/19 06:15 70 98 05/17/19 06:01 76 98 05/17/19 06:00 69 138/60 98 05/17/19 05:45 70 99 05/17/19 05:30 71 97 05/17/19 05:15 71 99 05/17/19 05:01 74 99 05/17/19 05:00 77 120/58 L 99 Laboratory Results 05/17/19 05/17/19 05/17/19 Range/Units 12:02 09:41 04:19 WBC (4.8-10.8) K/uL RBC (4.7-6.1) M/uL Hgb (14.0-18.0) g/dL Hct (42-52) % MCV (80-100) fL MCH (25-34) pg MCHC (32-36) g/dL RDW Std Deviation (36.4-46.3) fL RDW Coeff of Ekta (11.5-14.5) % Plt Count (130-400) K/uL MPV (7.4-10.4) fL Immature Gran % (Auto) % Neut % (Auto) % Lymph % (Auto) % [place] % (Auto) % Eos % (Auto) % Baso % (Auto) % Immature Gran # (Auto) (0.00-0.02) K/uL Neut # (Auto) (1.4-6.5) K/uL Lymph # (Auto) (1.2-3.4) K/uL [place] # (Auto) (0.11-0.59) K/uL Eos # (Auto) (0-0.5) K/uL Baso # (Auto) (0-0.2) K/uL Absolute Nucleated RBC (0-0) K/uL Nucleated RBC % (auto) % Dohle Bodies Sample Site POC pH (7.35-7.45) POC pCO2 (35-46) mmHg POC pO2 (80-95) mmHg POC HCO3 (19-24) dorothy/L POC Total CO2 (24-31) mEq/l POC Base Excess (-9-1.8) dorothy/L ABG pH (7.35-7.45) ABG pCO2 (35-46) mmHg ABG pO2 (80-95) mm/Hg ABG HCO3 (19-24) mmol/L POC ABG O2 Sat (90-95) % ABG O2 Saturation (90-95) % ABG Base Excess (-9-1.8) mEq/L Jeffery Test Oxygen Given O2 Delivery Device POC O2 Rate Minute Ventilation POC FiO2 % Tidal Volume PEEP Sodium (136-145) mmol/L Potassium (3.5-5.1) mmol/L Chloride (98-107) mmol/L Carbon Dioxide (21-32) mmol/L Anion Gap (3-11) BUN (7-18) mg/dl Creatinine (0.6-1.4) mg/dl Est Cr Clr Drug Dosing ml/min Est GFR ( Amer) Est GFR (Non-Af Amer) BUN/Creatinine Ratio (10-20) Glucose (70-99) mg/dl POC Glucose (other) 162 H 169 H 182 H (70-99) mg/dl Lactate (0.4-2.0) mmol/L Calcium (8.5-10.1) mg/dl Phosphorus (2.5-4.9) mg/dl Magnesium (1.8-2.4) mg/dl Total Bilirubin (0.2-1) mg/dl AST (15-37) U/L ALT (12-78) U/L Alkaline Phosphatase (45-117) U/L Total Protein (6.4-8.2) gm/dl Albumin (3.4-5.0) gm/dl Globulin (2.5-4.0) gm/dl Albumin/Globulin Ratio (0.9-2) 05/17/19 05/17/19 05/17/19 Range/Units 04:06 04:06 04:06 WBC 15.14 H (4.8-10.8) K/uL RBC 2.47 L (4.7-6.1) M/uL Hgb 7.5 L (14.0-18.0) g/dL Hct 22.1 L (42-52) % MCV 89.5 (80-100) fL MCH 30.4 (25-34) pg MCHC 33.9 (32-36) g/dL RDW Std Deviation 47.4 H (36.4-46.3) fL RDW Coeff of Ekta 14.5 (11.5-14.5) % Plt Count 117 L (130-400) K/uL MPV 10.2 (7.4-10.4) fL Immature Gran % (Auto) 1.8 % Neut % (Auto) 88.1 % Lymph % (Auto) 3.4 % [place] % (Auto) 6.7 % Eos % (Auto) 0.0 % Baso % (Auto) 0.0 % Immature Gran # (Auto) 0.28 H (0.00-0.02) K/uL Neut # (Auto) 13.33 H (1.4-6.5) K/uL Lymph # (Auto) 0.52 L (1.2-3.4) K/uL [place] # (Auto) 1.01 H (0.11-0.59) K/uL Eos # (Auto) 0.00 (0-0.5) K/uL Baso # (Auto) 0.00 (0-0.2) K/uL Absolute Nucleated RBC 0.03 H (0-0) K/uL Nucleated RBC % (auto) 0.2 % Dohle Bodies 1+ Sample Site POC pH (7.35-7.45) POC pCO2 (35-46) mmHg POC pO2 (80-95) mmHg POC HCO3 (19-24) dorothy/L POC Total CO2 (24-31) mEq/l POC Base Excess (-9-1.8) dorothy/L ABG pH 7.50 H (7.35-7.45) ABG pCO2 35 (35-46) mmHg ABG pO2 85 (80-95) mm/Hg ABG HCO3 26 H (19-24) mmol/L POC ABG O2 Sat (90-95) % ABG O2 Saturation 94.6 (90-95) % ABG Base Excess 3.1 H (-9-1.8) mEq/L Jeffery Test Pos Oxygen Given 30% O2 Delivery Device POC O2 Rate Minute Ventilation POC FiO2 % Tidal Volume PEEP Sodium (136-145) mmol/L Potassium (3.5-5.1) mmol/L Chloride (98-107) mmol/L Carbon Dioxide (21-32) mmol/L Anion Gap (3-11) BUN (7-18) mg/dl Creatinine (0.6-1.4) mg/dl Est Cr Clr Drug Dosing ml/min Est GFR ( Amer) Est GFR (Non-Af Amer) BUN/Creatinine Ratio (10-20) Glucose (70-99) mg/dl POC Glucose (other) (70-99) mg/dl Lactate 1.9 (0.4-2.0) mmol/L Calcium (8.5-10.1) mg/dl Phosphorus (2.5-4.9) mg/dl Magnesium (1.8-2.4) mg/dl Total Bilirubin (0.2-1) mg/dl AST (15-37) U/L ALT (12-78) U/L Alkaline Phosphatase (45-117) U/L Total Protein (6.4-8.2) gm/dl Albumin (3.4-5.0) gm/dl Globulin (2.5-4.0) gm/dl Albumin/Globulin Ratio (0.9-2) 05/17/19 05/16/19 05/16/19 Range/Units 04:06 23:44 20:13 WBC (4.8-10.8) K/uL RBC (4.7-6.1) M/uL Hgb (14.0-18.0) g/dL Hct (42-52) % MCV (80-100) fL MCH (25-34) pg MCHC (32-36) g/dL RDW Std Deviation (36.4-46.3) fL RDW Coeff of Ekta (11.5-14.5) % Plt Count (130-400) K/uL MPV (7.4-10.4) fL Immature Gran % (Auto) % Neut % (Auto) % Lymph % (Auto) % [place] % (Auto) % Eos % (Auto) % Baso % (Auto) % Immature Gran # (Auto) (0.00-0.02) K/uL Neut # (Auto) (1.4-6.5) K/uL Lymph # (Auto) (1.2-3.4) K/uL [place] # (Auto) (0.11-0.59) K/uL Eos # (Auto) (0-0.5) K/uL Baso # (Auto) (0-0.2) K/uL Absolute Nucleated RBC (0-0) K/uL Nucleated RBC % (auto) % Dohle Bodies Sample Site POC pH (7.35-7.45) POC pCO2 (35-46) mmHg POC pO2 (80-95) mmHg POC HCO3 (19-24) dorothy/L POC Total CO2 (24-31) mEq/l POC Base Excess (-9-1.8) dorothy/L ABG pH (7.35-7.45) ABG pCO2 (35-46) mmHg ABG pO2 (80-95) mm/Hg ABG HCO3 (19-24) mmol/L POC ABG O2 Sat (90-95) % ABG O2 Saturation (90-95) % ABG Base Excess (-9-1.8) mEq/L Jeffery Test Oxygen Given O2 Delivery Device POC O2 Rate Minute Ventilation POC FiO2 % Tidal Volume PEEP Sodium 129 L (136-145) mmol/L Potassium 4.5 (3.5-5.1) mmol/L Chloride 92 L (98-107) mmol/L Carbon Dioxide 28 (21-32) mmol/L Anion Gap 9.0 (3-11) BUN 66 H (7-18) mg/dl Creatinine 4.11 H D (0.6-1.4) mg/dl Est Cr Clr Drug Dosing 19.1 ml/min Est GFR ( Amer) 15.2 Est GFR (Non-Af Amer) 13.1 BUN/Creatinine Ratio 16.1 (10-20) Glucose 183 H (70-99) mg/dl POC Glucose (other) 193 H (70-99) mg/dl Lactate 2.5 H* (0.4-2.0) mmol/L Calcium 7.6 L (8.5-10.1) mg/dl Phosphorus (2.5-4.9) mg/dl Magnesium 2.0 (1.8-2.4) mg/dl Total Bilirubin 1.1 H (0.2-1) mg/dl AST 38 H (15-37) U/L ALT 46 (12-78) U/L Alkaline Phosphatase 115 (45-117) U/L Total Protein 4.9 L (6.4-8.2) gm/dl Albumin 1.7 L (3.4-5.0) gm/dl Globulin 3.2 (2.5-4.0) gm/dl Albumin/Globulin Ratio 0.5 L (0.9-2) 05/16/19 05/16/19 05/15/19 Range/Units 20:13 17:58 22:55 WBC (4.8-10.8) K/uL RBC (4.7-6.1) M/uL Hgb (14.0-18.0) g/dL Hct (42-52) % MCV (80-100) fL MCH (25-34) pg MCHC (32-36) g/dL RDW Std Deviation (36.4-46.3) fL RDW Coeff of Ekta (11.5-14.5) % Plt Count (130-400) K/uL MPV (7.4-10.4) fL Immature Gran % (Auto) % Neut % (Auto) % Lymph % (Auto) % [place] % (Auto) % Eos % (Auto) % Baso % (Auto) % Immature Gran # (Auto) (0.00-0.02) K/uL Neut # (Auto) (1.4-6.5) K/uL Lymph # (Auto) (1.2-3.4) K/uL [place] # (Auto) (0.11-0.59) K/uL Eos # (Auto) (0-0.5) K/uL Baso # (Auto) (0-0.2) K/uL Absolute Nucleated RBC (0-0) K/uL Nucleated RBC % (auto) % Dohle Bodies Sample Site Art Line POC pH 7.25 L (7.35-7.45) POC pCO2 41 (35-46) mmHg POC pO2 65 L (80-95) mmHg POC HCO3 18 L (19-24) dorothy/L POC Total CO2 19 L (24-31) mEq/l POC Base Excess -9.0 (-9-1.8) dorothy/L ABG pH (7.35-7.45) ABG pCO2 (35-46) mmHg ABG pO2 (80-95) mm/Hg ABG HCO3 (19-24) mmol/L POC ABG O2 Sat 89.0 L (90-95) % ABG O2 Saturation (90-95) % ABG Base Excess (-9-1.8) mEq/L Jeffery Test NA Oxygen Given O2 Delivery Device Ventilator POC O2 Rate 24 Minute Ventilation 12.0 POC FiO2 30 % Tidal Volume 450 PEEP 12 Sodium 130 L (136-145) mmol/L Potassium 4.6 (3.5-5.1) mmol/L Chloride 93 L (98-107) mmol/L Carbon Dioxide 25 (21-32) mmol/L Anion Gap 12.0 H (3-11) BUN 59 H (7-18) mg/dl Creatinine 3.79 H D (0.6-1.4) mg/dl Est Cr Clr Drug Dosing 20.7 ml/min Est GFR ( Amer) 16.7 Est GFR (Non-Af Amer) 14.4 BUN/Creatinine Ratio 15.6 (10-20) Glucose 176 H (70-99) mg/dl POC Glucose (other) 160 H (70-99) mg/dl Lactate (0.4-2.0) mmol/L Calcium 7.9 L (8.5-10.1) mg/dl Phosphorus 4.0 D (2.5-4.9) mg/dl Magnesium 1.9 (1.8-2.4) mg/dl Total Bilirubin (0.2-1) mg/dl AST (15-37) U/L ALT (12-78) U/L Alkaline Phosphatase (45-117) U/L Total Protein (6.4-8.2) gm/dl Albumin (3.4-5.0) gm/dl Globulin (2.5-4.0) gm/dl Albumin/Globulin Ratio (0.9-2) 05/15/19 05/15/19 Range/Units 16:53 16:50 WBC (4.8-10.8) K/uL RBC (4.7-6.1) M/uL Hgb (14.0-18.0) g/dL Hct (42-52) % MCV (80-100) fL MCH (25-34) pg MCHC (32-36) g/dL RDW Std Deviation (36.4-46.3) fL RDW Coeff of Ekta (11.5-14.5) % Plt Count (130-400) K/uL MPV (7.4-10.4) fL Immature Gran % (Auto) % Neut % (Auto) % Lymph % (Auto) % [place] % (Auto) % Eos % (Auto) % Baso % (Auto) % Immature Gran # (Auto) (0.00-0.02) K/uL Neut # (Auto) (1.4-6.5) K/uL Lymph # (Auto) (1.2-3.4) K/uL [place] # (Auto) (0.11-0.59) K/uL Eos # (Auto) (0-0.5) K/uL Baso # (Auto) (0-0.2) K/uL Absolute Nucleated RBC (0-0) K/uL Nucleated RBC % (auto) % Dohle Bodies Sample Site Art Line POC pH 7.24 L (7.35-7.45) POC pCO2 41 (35-46) mmHg POC pO2 75 L (80-95) mmHg POC HCO3 18 L (19-24) dorothy/L POC Total CO2 19 L (24-31) mEq/l POC Base Excess -10.0 L (-9-1.8) dorothy/L ABG pH (7.35-7.45) ABG pCO2 (35-46) mmHg ABG pO2 (80-95) mm/Hg ABG HCO3 (19-24) mmol/L POC ABG O2 Sat 92.0 (90-95) % ABG O2 Saturation (90-95) % ABG Base Excess (-9-1.8) mEq/L Jeffery Test NA Oxygen Given O2 Delivery Device Ventilator POC O2 Rate 24 Minute Ventilation 10.8 POC FiO2 30 % Tidal Volume 450 PEEP 12 Sodium (136-145) mmol/L Potassium (3.5-5.1) mmol/L Chloride (98-107) mmol/L Carbon Dioxide (21-32) mmol/L Anion Gap (3-11) BUN (7-18) mg/dl Creatinine (0.6-1.4) mg/dl Est Cr Clr Drug Dosing ml/min Est GFR ( Amer) Est GFR (Non-Af Amer) BUN/Creatinine Ratio (10-20) Glucose (70-99) mg/dl POC Glucose (other) 87 (70-99) mg/dl Lactate (0.4-2.0) mmol/L Calcium (8.5-10.1) mg/dl Phosphorus (2.5-4.9) mg/dl Magnesium (1.8-2.4) mg/dl Total Bilirubin (0.2-1) mg/dl AST (15-37) U/L ALT (12-78) U/L Alkaline Phosphatase (45-117) U/L Total Protein (6.4-8.2) gm/dl Albumin (3.4-5.0) gm/dl Globulin (2.5-4.0) gm/dl Albumin/Globulin Ratio (0.9-2)
[2019-05-17] MEDS: HEPARIN SOD 5,000 UNIT/0.5 ML VIAL SQ SCH (20:45)
[2019-05-18] MEDS ORDERED: fentaNYL citrate 100 MCG/2 ML VIAL IV ONE (00:40)
[2019-05-18] MEDS: INSULIN ASPART 100 UNITS/ML 3 ML PEN SC SCH ×4 (01:00→16:24)
[2019-05-18] MEDS ORDERED: PROPOFOL 1,000 MG/100 ML VIAL IV PRN (02:00)
[2019-05-18 05:13] LABS: iSTAT Arterial Blood Gas HCO3 30 meg/L (19-24); iSTAT Arterial Blood Gas pCO2 33 mmHg (35-46); iSTAT Arterial Blood Gas pH 7.58 (7.35-7.45); iSTAT Arterial Blood Gas pO2 100 mmHg (80-95); iSTAT Carbon Dioxide 31 mEq/l (24-31); iSTAT FiO2 0 %; iSTAT Site Art Line
[2019-05-18 05:35] LABS: Hematocrit (blood only) 21.3 % (42-52); Hemoglobin 7.4 g/dL (14.0-18.0); Mean Corpuscular Hemoglobin 30.2 pg (25-34); Mean Corpuscular Hgb Conc 34.7 g/dL (32-36); Mean Corpuscular Volume 86.9 fL (80-100); Nucleated RBC # (auto) 0.05 K/uL (0-0); Nucleated RBC % (auto) 0.3 %; RDW Coefficient of Variation 14.2 % (11.5-14.5); RDW Standard Deviation 45.5 fL (36.4-46.3); Red Blood Count 2.45 M/uL (4.7-6.1); White Blood Count 18.21 K/uL (4.8-10.8)
[2019-05-18 05:55] LABS: INR 1.1 (0.9-1.1); Partial Thromboplastin Ratio 1.2; Partial Thromboplastin Time 33.3 Seconds (21.0-31.0); Prothrombin Time 11.5 Seconds (9.0-12.0)
[2019-05-18 06:06] LABS: BUN Creatinine Ratio 16.6 (10-20); Calcium 7.8 mg/dl (8.5-10.1); Creatinine Clr Calc Pharmacy 23.2 ml/min; Est GFR (African American) 19.1; Est GFR (Non-African American) 16.5; Phosphorus 3.2 mg/dl (2.5-4.9); Potassium 3.8 mmol/L (3.5-5.1)
[2019-05-18 06:08] LABS: Immature Granulocytes # (auto) 0.09 K/uL (0.00-0.02); Immature Granulocytes % (auto) 0.5 %; Lymphocytes # (auto) 0.81 K/uL (1.2-3.4); Lymphocytes % (auto) 4.4 %; Monocytes # (auto) 1.34 K/uL (0.11-0.59); Monocytes % (auto) 7.4 %; Neutrophils # (auto) 15.97 K/uL (1.4-6.5); Neutrophils % (auto) 87.7 %; Platelet Count 91 K/uL (130-400); Platelet Estimate Decreased (Normal); RBC Morphology Unremarkable
--- NOTE | 2019-05-18 06:25 | Surgery Progress Note ---
Date of Service May 18, 2019 Assessment & Plan (1) Pneumonitis due to inhalation of food or vomitus: on vent still with acute renal failure consider nutrition soon if not able to extubate once extubated can start clears and advance as GI function returns Present on Admission?: Yes (2) Strangulated inguinal hernia: doing w Subjective more alert UOP still issue no complaints of abdominal pain Physical Exam Constitutional: alert Respiratory: Auscultation: + diminished lung sounds and + rhonchi on vent Cardiovascular: Rate/Rhythm: regular rate and regular rhythm Gastrointestinal (Abdomen): Inspection/Auscultation: normal bowel sounds; abdomen not distended Percussion/Palpation: abdomen soft; abdomen nontender and no guarding Musculoskeletal: Head/Neck/Chest: normocephalic and head atraumatic right groin ecchymosis; no hernia Results & Data Vital Signs (Past 12 Hours) Vital Signs Temp Pulse Resp BP BP Pulse Ox 05/18/19 05:51 84 10 L 96 05/18/19 05:20 18 05/18/19 04:36 76 24 99 05/18/19 01:30 78 24 99 05/18/19 01:01 78 98 05/18/19 01:00 74 124/52 L 98 05/18/19 00:00 37.7 C H 78 130/58 L 98 05/17/19 23:21 81 129/56 L 98 05/17/19 23:00 80 117/59 L 98 05/17/19 22:50 84 99 05/17/19 22:40 81 99 05/17/19 22:30 86 99 05/17/19 22:26 82 24 100 05/17/19 22:20 85 99 05/17/19 22:10 86 99 05/17/19 22:01 86 99 05/17/19 22:00 84 110/52 L 99 05/17/19 21:50 86 99 05/17/19 21:40 86 99 05/17/19 21:30 85 98 05/17/19 21:20 84 98 05/17/19 21:10 85 99 05/17/19 21:01 85 98 05/17/19 21:00 87 121/55 L 98 05/17/19 20:50 80 98 05/17/19 20:40 86 98 05/17/19 20:30 86 99 05/17/19 20:20 89 100 05/17/19 20:10 85 99 05/17/19 20:01 85 99 05/17/19 20:00 88 114/51 L 99 05/17/19 19:50 84 24 98 05/17/19 19:40 84 100 05/17/19 19:30 83 100 05/17/19 19:20 86 100 05/17/19 19:10 82 100 05/17/19 19:06 37.1 C 144/48 H 05/17/19 19:01 86 100 05/17/19 19:00 81 139/64 100 05/17/19 18:50 80 100 05/17/19 18:40 80 100 05/17/19 18:30 82 100 05/17/19 18:20 84 100
[2019-05-18] MEDS: NOREPINEPHRINE BIT INJ 8 MG in DEXTROSE 5% 500 ML IV SCH (06:55)
[2019-05-18] MEDS ORDERED: CALCIUM GLUCONATE 10% 1,000 MG in SODIUM CHLORIDE 0.9% 50 ML IV ONE (07:00)
[2019-05-18] MEDS: PIPERACILLIN/TAZOBACTAM 4.5 GM in DEXTROSE 5% 100 ML IV SCH (07:19)
--- NOTE | 2019-05-18 07:40 | XRay Report ---
XR chest 1V portable CLINICAL HISTORY: Respiratory failure COMPARISON STUDY: 05/17/2019 FINDINGS: There is an endotracheal tube 3.5 cm above the jl. There is a right internal jugular ce ntral venous catheter project over the superior vena cava. There is a nasogastric tube which passes i nto the stomach. The cardiac and mediastinal contours remain stable. There is persistent mild pulmona ry vascular congestion/fluid overload. Small right pleural effusion is suspected. Basilar airspace op acities, likely represent focal edema.[ IMPRESSION: 1. Satisfactory position of the lines and tubes 2. Continued radiographic evidence of pulmonary vascular congestion/fluid overload Electronically signed by: Baldemar Meyers M.D. 05/18/2019 7:38 AM
[2019-05-18] MEDS: ALBUT/IPRATROP 3MG/0.5MG NEB 3 ML VIAL NEB SCH ×4 (07:54→18:50)
[2019-05-18] MEDS: ICU PROTOCOL FOR HYPERGLYCEMIA SCH (07:58)
--- NOTE | 2019-05-18 08:10 | Critical Care Progress Note ---
Date of Service May 18, 2019 Assessment & Plan (1) Post-operative state: Reason Critically Ill: 78-year-old male here with a PMHx significant for dCHF, MR, CKD3, PAD, and DM who presented with an incarcerated hernia with SBO and aspiration of emisis and who was admitted for ARDS and ARF. Neuro - [facility] ICU: Negative Sedation/Analgesia: Propofol stopped, fentanyl stopped Altered Mental Status, improved. OCD - Restart Fluvoxamine once able to tolerate PO Cardiac - CAD - Continue ASA, pravastatin CHF - Chest XR shows persistent but improving fluid overload - Per cards: Known nonobstructive coronary artery disease. Cardiac catheterization performed 2009 noted a 50% proximal LAD stenosis. Resume medical management when able. Afib - The patient atrial dysrhythmia is adequately rate controlled. 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 - Eliquis held postop. Hgb decreased in the setting of dialysis. Heparin 5,000u SQ Q12H started, observe for signs of bleeding. Continue holding DOAC at this time. Hypotension - Levo weaned to .03. Target Systolic >110 MAP >55 (rather than strict MAP > 65 2/2 widened pulse pressure) Respiratory - Acute Hypoxic Respiratory Failure 2/2 Aspiration PNA/ARDS, improving - Extubated - Continue Pip/Tazo 4.5g q12h GI - Incarcerated inguinal hernia with SBO obstruction s/p SBO resection and hernia repair - Abdomen continues to be soft on exam - Lactate normalized - Uptrending WBC to 18, decreasing pressor requirements. - Continue Pip-tazo as below Post-Operative Ileus - BS hypoactive, but intact - Moderate NG output with hypoactive bowel sounds, recommend ambulate and follow clinically and advance diet once NG output decrease and appears able to tolerate - Do not recommend parental nutrition at this time due to intermittent fevers and leukocytosis posing concern for sepsis/infection RENAL/LYTES - DAVEY on CKD 2/2 Acute Tubular Necrosis - Cr to 3.8 on admission, baseline 2.2. Improved with dialysis, then continued to uptrend. - K 3.8 today - ICal decreased to .097 today, 1g CaGluconate ordered - Dialysis catheter placed. Tolerated dialysis well yesterday. Nonanuric, oliguric - Nephro consulted. Dialysis for 4 hours today, none scheduled for tomorrow. Continue diuretic per their recommendations. Document strict I/O's. Appreciate recs. - BMP daily - Replace lytes as needed. - Toribio in place, Strict I&Os ENDO - T2DM - Last A1C 5.6% - ICU hyperglycemia protocol - SSI, glucose checks AC/HS HEME - Stable H&H. ID - Aspiration PNA and s/p SB resection as above - Continue pip-tazo 4.5g Q12H. Note that dosing was discussed with nephrology. Current dosing at a decreased GFR/CrCl, if renal function increases discuss with Nephrology before adjusting dose. - Leukocytosis uptrending, unclear etiology ?Source control vs aspiration pna previously noted - Blood cultures ngtd. Surveillance cultures drawn 05/08 ngtd - Afebrile INTEGUMENTARY - - Surgical incision C/D/I, no dehiscence/erythema/purulence, leslie in place. LINES/IV ACCESS - PIVs intact. DVT PROPHYLAXIS - - DOAC held, heparin 5,000u SQ Q12H. Thank you for allowing us to be part of this patient's care. Please refer to Dr. Park's documentation for any further recommendations. Supervising Physician Co-Signing Physician Notes Patient seen and examined. Electronic medical record reviewed. Discussed with ICU nurse and family practice resident as well as overnight. Family updated at bedside. Overnight events: Patient is continued to improve. He was extubated this morning. He is now off pressors. He is awake alert. Recommendations: 1. Severe sepsis with septic shock: Continue Zosyn. Culture data negative to date. It is somewhat concerning that white blood cell count continues to increase but in the face of clinical improvement we will continue to follow for now. 2. Hypoxemic respiratory failure: Now extubated: Pulmonary toilet with incentive spirometry. Wean oxygen as tolerated. 3. Acute on chronic renal failure: Dialysis tolerated yesterday. Plans for additional dialysis per nephrology. 4. Ischemic bowel due to incarcerated hernia: Status post exploratory laparotomy with excision of bowel. Management per surgery. Bowel sounds are minimal. Feeding per surgery 5. Anemia: No evidence of ongoing blood loss currently. Continue to follow. Transfusion threshold would be 7 or below. 6. Respiratory alkalosis: Now resolved as he is off the ventilator 7. Hyponatremia: Management per nephrology with dialysis. Continue to follow. 8. Hyperglycemia: Sliding scale insulin Discussed with patient and family at bedside as well as with the attending hospitalist. He is improving. Will initiate physical therapy and occupational therapy evaluations and try and get him out of bed to a chair. NG tube manageme nt per surgery. If he does well over the next 24 hours, he can likely transfer out of the ICU to the floor. Subjective Pt seen at bedside this morning. On initial visit he is intubated with ETT in place, on BiPAP at 10/5 wean by respiratory to 5/5. His sedation has been weaned off. He is able to lift his head off of the bed and cough on command. He is able to follow commands including thumbs up and moving his toes. Following extubation he reports "I cannot believe I have been here 3 days, I do not remember". Discussed patient's presentation and clinical course including presentation, surgery, potential aspiration pneumonia, and dialysis. He denies pain at time of visit, has a cough and a sore throat but is not struggling to breathe during conversation. He is informed that his family will be in to see him, he has no questions at time of visit. Review of Systems Review of Systems: Constitutional: Denies fever, chills. Endorses disorientation and does not fully remember the preceding 3 days Eyes: Denies vision change Cardiovascular: Denies Chest pain, chest pressure, palpitations Resp: Endorses sore throat, cough. Denies difficulty breathing. Gastrointestinal: Denies abdominal pain, pain at surgical incision. Genitourinary: Denies groin pain. Musculoskeletal: "is not sure' if he is week. Feels disoriented s/p extubation and sedation wean. Neurological: Denies headache, numbness, tingling Physical Exam Physical Exam: General: Intubated. Alert. Gestures would like ETT removed. Follows commands. Able to lift head from bed. Able to cough on command. HEENT: Atraumatic, normocephalic. PERLAA. Anicteric sclera. ETT in place. Pulm: Diffuse crackles bilaterally. Symmetrical chest rise. On BiPAP 5/5. Cardiac: RRR, -mrg. : Toribio in place, minimal UOP Abdominal: Nontender, nondistended, soft. BS decreased. Surgical incision R/mid pelvic inguinal with leslie in place, C/D/I, without dehiscence and well healing. Extremity: Extremities puffy, +edema in upper and lower extremities bilaterally. Skin warm, dry. PT/radial pulses intact bilaterally. Addendum: ETT removed 0806hrs. Pt breathing comfortably on NC, speech intact. NAD. Results & Data Vital Signs (Past 12 Hours) Vital Signs Temp Pulse Pulse Resp BP Pulse Ox 05/18/19 07:57 90 15 95 05/18/19 07:54 90 15 95 05/18/19 07:40 86 05/18/19 07:00 37.6 C H 86 145/72 H 97 05/18/19 05:51 84 10 L 96 05/18/19 05:20 18 05/18/19 04:36 76 24 99 05/18/19 01:30 78 24 99 05/18/19 01:01 78 98 05/18/19 01:00 74 124/52 L 98 05/18/19 00:00 37.7 C H 78 130/58 L 98 05/17/19 23:21 81 129/56 L 98 05/17/19 23:00 80 117/59 L 98 05/17/19 22:50 84 99 05/17/19 22:40 81 99 05/17/19 22:30 86 99 05/17/19 22:26 82 24 100 05/17/19 22:20 85 99 05/17/19 22:10 86 99 05/17/19 22:01 86 99 05/17/19 22:00 84 110/52 L 99 05/17/19 21:50 86 99 05/17/19 21:40 86 99 05/17/19 21:30 85 98 05/17/19 21:20 84 98 05/17/19 21:10 85 99 05/17/19 21:01 85 98 05/17/19 21:00 87 121/55 L 98 05/17/19 20:50 80 98 05/17/19 20:40 86 98 05/17/19 20:30 86 99 05/17/19 20:20 89 100 05/17/19 20:10 85 99 Resident Activity Tracking Resident Involvement: Resident Care Provided Care Provided: Adult Hospital Medicine
[2019-05-18] MEDS ORDERED: SODIUM CHLORIDE 0.9% 1000ML 1,000 ML IV PRN (08:45)
--- NOTE | 2019-05-18 09:01 | Anesthesiology Progress Note ---
Date of Service May 18, 2019 Anesthesia Post Procedure Vital Signs Vital Signs: Temp Pulse Pulse Resp BP BP Pulse Ox 05/18/19 08:35 91 H 137/58 L 95 05/18/19 08:31 95 H 96 05/18/19 08:30 91 H 145/65 H 97 05/18/19 08:26 94 H 135/77 96 05/18/19 08:20 93 H 147/67 H 96 05/18/19 08:19 15 05/18/19 08:15 94 H 144/60 H 96 05/18/19 08:11 92 H 139/63 95 05/18/19 08:00 93 H 140/65 95 05/18/19 07:57 90 15 95 05/18/19 07:54 90 15 95 05/18/19 07:40 86 05/18/19 07:00 37.6 C H 86 145/72 H 97 05/18/19 05:51 84 10 L 96 05/18/19 05:20 18 05/18/19 04:36 76 24 99 05/18/19 01:30 78 24 99 05/18/19 01:01 78 98 05/18/19 01:00 74 124/52 L 98 05/18/19 00:00 37.7 C H 78 130/58 L 98 05/17/19 23:21 81 129/56 L 98 05/17/19 23:00 80 117/59 L 98 05/17/19 22:50 84 99 05/17/19 22:40 81 99 05/17/19 22:30 86 99 05/17/19 22:26 82 24 100 05/17/19 22:20 85 99 05/17/19 22:10 86 99 05/17/19 22:01 86 99 05/17/19 22:00 84 110/52 L 99 05/17/19 21:50 86 99 05/17/19 21:40 86 99 05/17/19 21:30 85 98 05/17/19 21:20 84 98 05/17/19 21:10 85 99 05/17/19 21:01 85 98 05/17/19 21:00 87 121/55 L 98 05/17/19 20:50 80 98 05/17/19 20:40 86 98 05/17/19 20:30 86 99 05/17/19 20:20 89 100 05/17/19 20:10 85 99 05/17/19 20:01 85 99 05/17/19 20:00 88 114/51 L 99 05/17/19 19:50 84 24 98 05/17/19 19:40 84 100 05/17/19 19:30 83 100 05/17/19 19:20 86 100 05/17/19 19:10 82 100 05/17/19 19:06 37.1 C 144/48 H 05/17/19 19:01 86 100 05/17/19 19:00 81 139/64 100 05/17/19 18:50 80 100 05/17/19 18:40 80 100 05/17/19 18:30 82 100 05/17/19 18:20 84 100 05/17/19 18:15 86 130/62 05/17/19 18:10 87 99 05/17/19 18:00 86 142/50 H 100 05/17/19 17:45 86 144/63 H 05/17/19 17:30 86 134/45 L 05/17/19 17:16 83 152/48 H 05/17/19 17:05 83 143/66 H 05/17/19 17:00 86 123/63 100 05/17/19 16:45 76 126/41 L 05/17/19 16:30 83 109/37 L 05/17/19 16:15 76 108/39 L 05/17/19 16:00 37.6 C H 86 113/63 100 05/17/19 15:30 83 81/31 L 05/17/19 15:21 101 H 28 H 99 05/17/19 15:20 78 108/37 L 05/17/19 15:16 86 28 H 99 05/17/19 15:00 82 124/63 100 05/17/19 14:40 67 142/44 H 05/17/19 14:20 67 148/46 H 05/17/19 14:15 37.1 C 83 05/17/19 14:00 76 126/53 L 100 05/17/19 13:00 84 133/53 L 100 05/17/19 12:01 80 99 05/17/19 12:00 37.6 C H 81 146/68 H 99 05/17/19 11:51 74 27 H 94 05/17/19 11:00 72 124/57 L 99 05/17/19 10:00 77 136/61 95 05/17/19 09:31 72 24 99 05/17/19 09:00 79 134/54 L 95 Transfer of Care Handoff Completed per policy Notes Mental Status: alert / awake / arousable Patient Amnestic to Procedure: Yes Nausea / Vomiting: adequately controlled Pain: adequately controlled Airway Patency, RR, SpO2: stable & adequate BP & HR: stable & adequate and see Notes below Hydration State: stable & adequate and see Notes below Anesthetic Complications: no major complications apparent and Pt Satisfied with anesthetic care Notes: The patient is 78 y/o s/p incarcerated hernia/bowel resection POD 4. The patient is doing remarkably better considering he had aspirated multiple times prior to going to the OR and was found to have necrotic bowel in addition to renal failure and a significant cardiac history. The patient has been extubated and is awake and talking on NC oxygen. The patient tolerated dialysis yesterday. He is being weened off norepinephrine and has continued to receive antibiotics. On exam the patient has slight rhonchi bilaterally but is vastly improved from his preoperative exam. The patient's family was at bedside.
[2019-05-18] MEDS ORDERED: CALCIUM CHLORIDE 10% 1,000 MG in SODIUM CHLORIDE 0.9% 50 ML IV STA (09:20)
[2019-05-18] MEDS: HEPARIN SOD 5,000 UNIT/0.5 ML VIAL SQ SCH ×2 (09:35→20:34)
[2019-05-18] MEDS: FAMOTIDINE 20 MG in SYRINGE 3 ML IV SCH (09:35)
--- NOTE | 2019-05-18 10:00 | Palliative Care Progress Note ---
Date of Service May 18, 2019 Assessment & Plan (1) Goals of care, counseling/discussion: -Patient remains critically ill. Patient was able to be extubated this morning around 0800 and is tolerating nasal canula with SpO2 96-97% -Patient having intermittent confusion, which is not surprising due to him being recently intubated on sedation and impaired kidney function, likely could have some ICU delerium as well. -NGT remains in place, copious amounts of bile coming out via suction. (about 550 cc past 8 hours) -Patient continues to make a small amount of urine, about 10-15mL Q2 hours; creatinine is 3.39. patient tolerated 4 hours of bedside HD yesterday. Per Nephrology notes, plan for an additional trial today. -All inotropic support has been weaned at this time. -The patient is a DNR/DNI at this time; however, I think that further discussions are imperative to be held regarding escalation of care should he decompensate (further intubations, surgery, restarting pressors, etc). -There have been many days of despair with his condition and this has been a big step in the right direction, so we can discuss this over the next few days based on progress. That being said, I could see him tiring easily. -In talking to the patient, he does not recall any of the recent days events. Reassured family of this and educated on continued orientation. Patient was able to tell me his name, who everyone was in the room, and where he was. Unsure he understands how complex his condition is. -Plan for PT/OT to work with the patient to continue progressing forward and reassess. -All of the above discussed with family and patient at the bedside, along with the Hospitalist and magazine publisher. -Palliative Care will continue to provide support to the family and follow along through his hospitalization. (2) Severe sepsis with septic shock: (3) Acute respiratory failure with hypoxia: (4) Acute respiratory distress syndrome (ARDS): (5) Mitral regurgitation: Subjective Patient clinically showing some improvements. Pt extubated this AM around 0800. Tolerating a nasal canula at this time. Tolerated HD yesterday for 4 hours. All inotropic vasopressor support weaned off. See A/P for further details. Review of Systems Review of Systems: Constitutional: (-) pain HEENT: (+) confusion Resp: + cough CV: (-) chest pain, palpitations GI: (-) N/V/D Physical Exam Constitutional: + ill appearing, + frail appearing and cooperative Respiratory: normal respiratory effort and + cough Auscultation: + diminished lung sounds and + rhonchi Cardiovascular: Heart Sounds: + murmur (grade III/ LSB) Extremities: normal capillary refill and + edema Gastrointestinal (Abdomen): normal bowel sounds, soft, nontender, no hepatosplenomegaly Inspection/Auscultation: + hypoactive bowel sounds (only heard LUQ) NGT in place, copious amounts of bile aspirated by suction Skin: no rashes, warm and dry Psychiatric: Orientation: alert and oriented x 3 Insight: + limited insight Judgement: + limited judgement Lymphatic: no cervical or axillary lymphadenopathy Results & Data Vital Signs (Past 12 Hours) Vital Signs Temp Pulse Pulse Resp BP Pulse Ox 05/18/19 08:35 91 H 137/58 L 95 05/18/19 08:31 95 H 96 05/18/19 08:30 91 H 145/65 H 97 05/18/19 08:26 94 H 135/77 96 05/18/19 08:20 93 H 147/67 H 96 05/18/19 08:19 15 05/18/19 08:15 94 H 144/60 H 96 05/18/19 08:11 92 H 139/63 95 05/18/19 08:00 93 H 140/65 95 05/18/19 07:57 90 15 95 05/18/19 07:54 90 15 95 05/18/19 07:40 86 05/18/19 07:00 37.6 C H 86 145/72 H 97 05/18/19 05:51 84 10 L 96 05/18/19 05:20 18 05/18/19 04:36 76 24 99 05/18/19 01:30 78 24 99 05/18/19 01:01 78 98 05/18/19 01:00 74 124/52 L 98 05/18/19 00:00 37.7 C H 78 130/58 L 98 05/17/19 23:21 81 129/56 L 98 05/17/19 23:00 80 117/59 L 98 05/17/19 22:50 84 99 05/17/19 22:40 81 99 05/17/19 22:30 86 99 05/17/19 22:26 82 24 100 05/17/19 22:20 85 99 05/17/19 22:10 86 99 05/17/19 22:01 86 99 05/17/19 22:00 84 110/52 L 99 PG Care Time/CCT Total # of Minutes Spent Total Time Spent with Patient: Total time spent is greater than 50% in coordination of care (as documented) at patient's floor/unit and/or counseling patient: 45 Time Spent Midlevel Total time spent 45 minutes with > 50% of that time spent assessing the patient and discussing goals of care with the family.
[2019-05-18] MEDS ORDERED: AMPICILLIN/SULBACTAM CONSULT ACTIVE PRN (10:08)
--- NOTE | 2019-05-18 10:14 | Hospitalist Progress Note ---
Date of Service May 18, 2019 Assessment & Plan (1) SBO (small bowel obstruction): 2nd to strangulated inguinal hernia. POD #4 s/p reduction of incarcerated right inguinal hernia, small bowel resection (necrotic small bowel within the hernia sac) Continue NG tube, still having . Increased BS from yesterday but no BM since , no known flatus. Appreciate surgery management. Increased bowel sounds (2) Strangulated inguinal hernia: as above (3) Acute respiratory distress syndrome (ARDS): 2nd to aspiration pneumonitis vs. pulmonary edema 2/2 acute renal failure Now extubated and managing to wean O2. (4) Acute respiratory failure with hypoxia: In setting of sepsis. Extubated and managing to wean O2 with nasal cannula (5) Gram-negative bacteremia: Citrobacter koseri blood culture positive. Urine cultures negative. Suspect from ischemic bowel in strangulated hernia. Antibiotics as per ICU with sensitivities. Repeat blood cultures pending for resolution. (6) Severe sepsis with septic shock: Continue dialysis as able. Still weaning of norepinephrine as able. (7) Acute renal failure due to tubular necrosis: No hydronephrosis on admission. Presentation consistent with ATN. Appreciate nephrology ongoing management with dialysis. UO remains minimal. Appreciate nephrology ongoing management. (8) Diastolic heart failure: Fluid overload in setting of renal failure. Fluid management with hemodialysis. (9) NPH (normal pressure hydrocephalus): Suspected history of this. Missed diagnostic lumbar puncture due to current admission. (10) Stage 3 chronic kidney disease: With ARF 2nd ATN. See treatment above. (11) Atrial fibrillation: A. fib/flutter. Rates controlled. Eliquis on hold due to DAVEY with downtrending hemoglobin. Restart full anticoagulation when more stable. Currently on VTE prophylaxis heparin (12) PAD (peripheral artery disease): (13) Type 2 diabetes mellitus: HbA1c 5.6 in February suggests overtreatment with outpatient glipizide. Likely can be d/c on discharge. Appreciate glycemic control management by pharmacy. (14) Obstructive sleep apnea: CPAP @ night now he is extubated. (15) DVT prophylaxis: SCDs. Heparin SQ as per ICU management. GI prophylaxis with famotidine. (16) Discharge planning issues: Prognosis remains guarded given no BM and ongoing need for HD but much improved over last 2 days. Family aware. Not for resuscitation in the event of cardiac arrest. Subjective Patient extubated on 4 L O2 when seen. Does not remember anything regarding hospitalization. Feels much improved with the ET tube out. Mild RUQ pain on palpation only. Still having a lot of output from NG tube. Frequently coughing since extubation. Updated patient, and daughter at bedside. Discussed ongoing care with Dr Appiah, Dr Park and Marlene (palliative). Review of Systems Review of Systems: All systems reviewed & are unremarkable except as noted in HPI & below Physical Exam Constitutional: well developed, + frail appearing and + malnourished; no acute distress Eyes: + anicteric sclerae; pupils not irregular Neck: trachea midline Respiratory: normal respiratory effort and symmetric chest movement; no respiratory distress, no labored breathing and does not use accessory muscles Auscultation: + rhonchi (B/l anteriorly with good air entry); no diminished lung sounds Cardiovascular: Rate/Rhythm: regular rate and regular rhythm Heart Sounds: + murmur (2/6 LUSB) Extremities: normal capillary refill and + pedal edema (2+ In feet, 1+ b/l equal to knees, SCDs in place) Gastrointestinal (Abdomen): Inspection/Auscultation: + hypoactive bowel sounds (Appears improved from previous day) Percussion/Palpation: + abdomen tender (RUQ mild) and abdomen soft; no guarding and abdomen not rigid Musculoskeletal: moving both arms equally Skin: no rashes, warm and dry Neurologic: moves all extremities and awake; not confused Psychiatric: Orientation: alert Results & Data Vital Signs (Past 12 Hours) Vital Signs Temp Pulse Pulse Resp BP Pulse Ox 05/18/19 08:35 91 H 137/58 L 95 05/18/19 08:31 95 H 96 05/18/19 08:30 91 H 145/65 H 97 05/18/19 08:26 94 H 135/77 96 05/18/19 08:20 93 H 147/67 H 96 05/18/19 08:19 15 05/18/19 08:15 94 H 144/60 H 96 05/18/19 08:11 92 H 139/63 95 05/18/19 08:00 93 H 140/65 95 05/18/19 07:57 90 15 95 05/18/19 07:54 90 15 95 05/18/19 07:40 86 05/18/19 07:00 99.7 F H 86 145/72 H 97 05/18/19 05:51 84 10 L 96 05/18/19 05:20 18 05/18/19 04:36 76 24 99 05/18/19 01:30 78 24 99 05/18/19 01:01 78 98 05/18/19 01:00 74 124/52 L 98 05/18/19 00:00 99.9 F H 78 130/58 L 98 05/17/19 23:21 81 129/56 L 98 05/17/19 23:00 80 117/59 L 98 05/17/19 22:50 84 99 05/17/19 22:40 81 99 05/17/19 22:30 86 99 05/17/19 22:26 82 24 100 05/17/19 22:20 85 99 PG Care Time/CCT Total # of Minutes Spent Total Time Spent with Patient: Total time spent is greater than 50% in coordination of care (as documented) at patient's floor/unit and/or counseling patient: (1) Type 2 diabetes mellitus Chronic kidney disease stage: stage 3 (moderate) Diabetes mellitus complication detail: with chronic kidney disease Diabetes mellitus complication status: with kidney complications Diabetes mellitus exterminator helper insulin use: without chcf use Qualified Code(s): E11.22 - Type 2 diabetes mellitus with diabetic chronic kidney disease; N18.3 - Chronic kidney disease, stage 3 (moderate) (2) Atrial fibrillation Atrial fibrillation type: paroxysmal Qualified Code(s): I48.0 - Paroxysmal atrial fibrillation (3) Diastolic heart failure Heart failure chronicity: chronic Qualified Code(s): I50.32 - Chronic diastolic (congestive) heart failure
--- NOTE | 2019-05-18 12:19 | Nephrology Progress Note ---
Date of Service May 18, 2019 Assessment & Plan (1) Acute kidney injury: DAVEY on CKD, in the setting of laparotomy for incarcerated hernia. Baseline creatinine 2.1 mg/dL. Clinical presentation consistent with ATN. CT did not demonstrate obstruction. UA with RBC/WBCs and protein in setting of Toribio catheter. Renal function continues to worsen, remain pretty much anuric over last more than 24 hours. Started on dialysis on 05/16/2019 for anuric acute kidney injury, hyperkalemia and metabolic acidosis, tolerated well, electrolyte abnormality resolved however creatinine increased again and remain anuric. Respiratory status improving, blood pressure improved and pressor requirement decreasing. Clinically doing much better. --dialysis for 4 hours today, minimum UF as tolerated --continue to monitor for renal recovery, no plan for dialysis tomorrow, will monitor over next 2 days and decide hydrate patient need dialysis on Thursday. --okay to use diuretics as needed if there is any sign of volume overload. --dose medications for GFR less than 10. Document strict I/O's. Will follow Subjective Tyler was seen and examined in his room this morning with his family at bedside. He was extubated early this morning and pressor was stopped around 5:00 a.m. and since then he has been doing remarkably well, maintaining saturation with nasal cannula oxygen and blood pressure has been stable. Remain oligo anuric but electrolyte acceptable. Tolerated 4 hours dialysis yesterday. Review of Systems Review of Systems: All systems reviewed & are unremarkable except as noted in HPI & below Physical Exam Constitutional: + ill appearing; no acute distress Respiratory: no respiratory distress Auscultation: + diminished lung sounds Cardiovascular: RRR, no murmur, no edema Neurologic: moves all extremities and awake; not confused Psychiatric: A+Ox3, euthymic affect Results & Data Vital Signs (Past 12 Hours) Vital Signs Temp Pulse Pulse Resp BP Pulse Ox 05/18/19 11:39 20 97 05/18/19 10:00 92 H 18 119/60 99 05/18/19 09:00 91 H 17 114/59 L 99 05/18/19 08:35 91 H 137/58 L 95 05/18/19 08:31 95 H 96 05/18/19 08:30 91 H 145/65 H 97 05/18/19 08:26 94 H 135/77 96 05/18/19 08:20 93 H 147/67 H 96 05/18/19 08:19 15 05/18/19 08:15 94 H 144/60 H 96 05/18/19 08:11 92 H 139/63 95 05/18/19 08:00 93 H 140/65 95 05/18/19 07:57 90 15 95 05/18/19 07:54 90 15 95 05/18/19 07:40 86 05/18/19 07:00 37.6 C H 86 145/72 H 97 05/18/19 05:51 84 10 L 96 05/18/19 05:20 18 05/18/19 04:36 76 24 99 05/18/19 01:30 78 24 99 05/18/19 01:01 78 98 05/18/19 01:00 74 124/52 L 98 PG Care Time/CCT Total # of Minutes Spent Total Time Spent with Patient: Total time spent is greater than 50% in coordination of care (as documented) at patient's floor/unit and/or counseling patient:
--- NOTE | 2019-05-18 12:42 | Billing Data ---
Coding Level of Care Code 40232 Subseq Hosp Care Lvl 3
[2019-05-18] MEDS ORDERED: AMPICILLIN/SULBACTAM SOD 3,000 MG in 0.9 % SODIUM CHLORIDE 100 ML IV SCH (20:00)
[2019-05-18] MEDS: DEXMEDETOMIDINE HCL 200 MCG in SODIUM CHLORIDE 0.9% 48 ML IV SCH ×2 (20:03→22:08)
[2019-05-19] MEDS: INSULIN ASPART 100 UNITS/ML 3 ML PEN SC SCH ×3 (00:17→13:30)
[2019-05-19] MEDS ORDERED: DEXMEDETOMIDINE HCL 400 MCG in 0.9 % SODIUM CHLORIDE 96 ML IV PRN (00:21)
[2019-05-19 05:04] LABS: BUN Creatinine Ratio 14.5 (10-20); Creatinine Clr Calc Pharmacy 29.2 ml/min; Est GFR (Non-African American) 21.6; Magnesium 2.1 mg/dl (1.8-2.4); Potassium 3.6 mmol/L (3.5-5.1)
[2019-05-19 05:34] LABS: Hematocrit (blood only) 20.8 % (42-52); Mean Corpuscular Hemoglobin 29.9 pg (25-34); Mean Corpuscular Hgb Conc 33.7 g/dL (32-36); Mean Corpuscular Volume 88.9 fL (80-100); Mean Platelet Volume 10.6 fL (7.4-10.4); Nucleated RBC # (auto) 0.04 K/uL (0-0); Nucleated RBC % (auto) 0.3 %; Platelet Count 68 K/uL (130-400); RDW Standard Deviation 46.3 fL (36.4-46.3); Red Blood Count 2.34 M/uL (4.7-6.1); White Blood Count 12.81 K/uL (4.8-10.8)
[2019-05-19 05:40] LABS: Basophils # (auto) 0.01 K/uL (0-0.2); Basophils % (auto) 0.1 %; Dohle Bodies 1+; Eosinophils # (auto) 0.01 K/uL (0-0.5); Eosinophils % (auto) 0.1 %; Immature Granulocytes # (auto) 0.03 K/uL (0.00-0.02); Immature Granulocytes % (auto) 0.2 %; Lymphocytes # (auto) 1.01 K/uL (1.2-3.4); Lymphocytes % (auto) 7.9 %; Monocytes # (auto) 1.44 K/uL (0.11-0.59); Monocytes % (auto) 11.2 %; Neutrophils # (auto) 10.31 K/uL (1.4-6.5); Neutrophils % (auto) 80.5 %; Toxic Vacuolation 1+
[2019-05-19] MEDS ORDERED: POTASSIUM CHLORIDE / WTR 20 MEQ/100 ML PLCT IV ONE (05:45)
--- NOTE | 2019-05-19 06:51 | XRay Report ---
XR chest 1V portable CLINICAL HISTORY: 78 years-old Male presenting with Resp failure. TECHNIQUE: Portable upright AP view of the chest was obtained. COMPARISON: 05/18/2019. FINDINGS: Right internal jugular central venous catheter terminates in the mid SVC. Nasogastric tube descends b elow the diaphragm, terminus not visualized. Numerous external leads overlie the thorax. Atherosclero sis of the aortic arch. Cardiac silhouette mildly enlarged. Prominence of the main pulmonary artery. Pulmonary vascular prominence. Bronchial wall cuffing is suspected. Similar appearance of the bibasil ar opacities with suspected small bilateral pleural effusions. No pneumothorax. Degenerative changes of the thoracic spine. Upper abdomen normal. IMPRESSION: 1. Unchanged appearance of volume overload and congestive change. 2. Persistent mild pulmonary edema. 3. Suspected small bilateral pleural effusions. Electronically signed by: Agus Barcenas M.D. 05/19/2019 6:50 AM
--- NOTE | 2019-05-19 07:23 | Critical Care Progress Note ---
Date of Service May 19, 2019 Assessment & Plan (1) Post-operative state: Reason Critically Ill: 78-year-old male here with a PMHx significant for dCHF, MR, CKD3, PAD, and DM who presented with an incarcerated hernia with SBO and aspiration of emisis and who was admitted for ARDS and ARF. Neuro - [facility] ICU: Positive Sedation/Analgesia: Propofol stopped, fentanyl stopped yesterday Altered Mental Status, suspect delirium - Agitated overnight, improved this morning and slept with pressodex - Delirium precautions. - Olanzapine 2.5mg PRN for delerium, may give x1 additional dose if needed OCD - Restart Fluvoxamine once able to tolerate PO Cardiac - CAD - Continue ASA, pravastatin CHF - Per cards: Known nonobstructive coronary artery disease. Cardiac catheterization performed 2009 noted a 50% proximal LAD stenosis. Resume medical management when able. Afib - The patient atrial dysrhythmia is adequately rate controlled. 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 - Eliquis held postop. Hgb decreased in the setting of dialysis. Heparin 5,000u SQ Q12H started, held at this time for concerns of HIT. Hypotension - Improved, off pressors Respiratory - Acute Hypoxic Respiratory Failure 2/2 Aspiration PNA/ARDS, improving - Extubated - Continue Pip/Tazo 4.5g q12h, renal/dialysis dosing at this time. GI - Incarcerated inguinal hernia with SBO obstruction s/p SBO resection and hernia repair - Abdomen continues to be soft on exam - Lactate normalized - Uptrending WBC to 18, decreasing pressor requirements. - Continue Pip-tazo as below Post-Operative Ileus - BS hypoactive, but intact - Decreasing NG output with hypoactive bowel sounds. NGT clamp trial today, will advance to clears if tolerates clamp well - Do not recommend parental nutrition at this time due to intermittent fevers and leukocytosis posing concern for sepsis/infection RENAL/LYTES - DAVEY on CKD 2/2 Acute Tubular Necrosis - Cr to 3.8 on admission, baseline 2.2. Improved with dialysis, then continued to uptrend. - K 3.6 today - Dialysis catheter in place. Tolerated dialysis well yesterday. Nonanuric, oliguric. No dialysis scheduled today. Follow UOP. - Nephro consulted. Continue diuretic per their recommendations. Document strict I/O's. Appreciate recs. - BMP daily - Replace lytes as needed. - Toribio in place, Strict I&Os ENDO - T2DM - Last A1C 5.6% - ICU hyperglycemia protocol - SSI, glucose checks AC/HS HEME - Anemia - Hgb 7.0 - Trend daily, type and screen ordered, blood consent signed. Discussed blood transfusion risk/benefits with pt in presence of his and family. - Transfusion threshold <7.0g/dL Thrombocytopenia, ?HIT vs thombocytopenia of sepsis - Heparin 5,000u q12h held - HIT panel ordered (PF4, reflex to seritonin assay) - CBC daily - No clinical signs of bleeding at this time - Trend H&H as above, blood consent on file ID - Aspiration PNA and s/p SB resection as above - Continue pip-tazo 4.5g Q12H. Note that dosing was discussed with nephrology. Current dosing at dialysis dosing, if renal function increases discuss with Nephrology before adjusting dose. - Leukocytosis uptrending, unclear etiology ?Source control vs aspiration pna previously noted - Blood cultures ngtd. Surveillance cultures drawn 05/08 ngtd - Afebrile INTEGUMENTARY - - Surgical incision C/D/I, no dehiscence/erythema/purulence, leslie in place. LINES/IV ACCESS - PIVs intact. DVT PROPHYLAXIS - - DOAC held, heparin 5,000u SQ Q12H held 2/2 concerns of HIT. SCDs Disposition: Progressing towards downgrade Thank you for allowing us to be part of this patient's care. Please refer to Dr. Park's documentation for any further recommendations. Supervising Physician Co-Signing Physician Notes Patient seen and examined. Electronic medical record reviewed. Discussed with ICU nurse and family practice resident as well as overnight. Family updated at bedside. Overnight events: Remained extubated overnight. Weaning oxygen. Some ICU delirium requiring initiation of Precedex and restraining hand mitts. Better this morning. Recommendations: 1. Severe sepsis with septic shock: Resolving. Continue Zosyn. Culture data negative to date. White blood cell count decreasing today. Continue Unasyn for now. Can likely transition to oral Augmentin to complete 10-day course when taking oral 2. Hypoxemic respiratory failure: Now extubated: Pulmonary toilet with incenti ve spirometry. Wean oxygen as tolerated. 3. Acute on chronic renal failure: Dialysis tolerated yesterday. Plans for additional dialysis per nephrology. 4. Ischemic bowel due to incarcerated hernia: Status post exploratory laparotomy with excision of bowel. Management per surgery. Bowel sounds are minimal. Trial of clamping his NG tube and seeing if output decreases. May be able to start ice chips today 5. Anemia: No evidence of ongoing blood loss currently. Continue to follow. We will type and screen. He may require a transfusion but ideally would like to do this in conjunction with dialysis. He is tolerating his anemia quite well currently. Defer EPO to nephrology 6. Respiratory alkalosis: Now resolved as he is off the ventilator 7. Hyponatremia: Management per nephrology with dialysis. Continue to follow. 8. Hyperglycemia: Sliding scale insulin 9. ICU delirium: Secondary to renal failure with multiple medications. Maintain sleep-wake cycle. Frequent reorientation. Will use low-dose antipsychotics at night if needed. QTC okay Discussed with patient, ICU nurse, and family practice resident as well as spouse at bedside. He is clinically improving. He can likely transfer to the floor later today. Per hospitalist Subjective History limited by mental status. Per nursing report patient was delirious and agitated overnight. Received a Precedex drip overnight, which was stopped approximately 0600. Patient was able to sleep well. On visit this morning he is not alert or oriented to place, date, or time and does not recall the preceding events of his hospitalization. He is not agitated at time of morning visit. No acute distress. Review of Systems Review of Systems: Unobtainable due to cognitive status Limited/unreliable due to mental status, but denies shortness of breath, chest pain, chest pressure, abdominal pain, pain to surgical site, and pain, joint pain, rash, nausea/vomiting/diarrhea/constipation. Denies fever/chills. Does not recall being agitated overnight. Physical Exam Physical Exam: General: Alert. Cooperative. No oriented to date or place. Does not recall why he is hospitalized, does not recall preceding events of hospitalization. No acute distress. Skin warm and dry. HEENT: Atraumatic, normocephalic. PERLAA. Anicteric sclera. Pulm: Trace bibasilar crackles, otherwise grossly clear to auscultation bilaterally. No wheezes. Symmetrical chest rise. No respiratory distress. Cardiac: RRR, -mrg. : Toribio in place, minimal UOP Abdominal: Nontender, nondistended, soft. BS hypoactive. Surgical incision R/mid pelvic inguinal with leslie in place, C/D/I, without dehiscence and well healing. Extremity: Extremities with residual, but improved edema in upper and lower e xtremities bilaterally. PT/radial pulses intact bilaterally. Results & Data Vital Signs (Past 12 Hours) Vital Signs Temp Pulse Pulse Resp BP BP BP 05/19/19 06:00 70 16 126/58 L 05/19/19 05:00 61 15 110/53 L 05/19/19 04:00 36.8 C 60 17 107/49 L 05/19/19 03:00 58 L 18 93/48 L 05/19/19 02:00 60 16 96/51 L 05/19/19 01:00 60 15 102/49 L 05/19/19 00:00 36.9 C 62 14 96/47 L 05/18/19 23:00 63 16 90/45 L 05/18/19 22:00 65 16 97/42 L 05/18/19 21:00 94 H 20 126/59 L 05/18/19 20:00 36.8 C 98 H 20 148/61 H 05/18/19 19:40 36.8 C 94 H 124/50 L 144/48 H 156/70 H Pulse Ox 05/19/19 06:00 94 05/19/19 05:00 97 05/19/19 04:00 98 05/19/19 03:00 100 05/19/19 02:00 100 05/19/19 01:00 100 05/19/19 00:00 100 05/18/19 23:00 100 05/18/19 22:00 99 05/18/19 21:00 95 05/18/19 20:00 100 05/18/19 19:40 Resident Activity Tracking Resident Involvement: Resident Care Provided Care Provided: Adult Hospital Medicine
[2019-05-19] MEDS: ALBUT/IPRATROP 3MG/0.5MG NEB 3 ML VIAL NEB SCH ×4 (07:35→19:29)
[2019-05-19] MEDS: FAMOTIDINE 20 MG in SYRINGE 3 ML IV SCH (08:07)
--- NOTE | 2019-05-19 08:55 | Surgery Progress Note ---
Date of Service May 19, 2019 Assessment & Plan (1) Incarcerated inguinal hernia: POD 5 strangulated RIH repair, PSB rsxn can try sips or clears later today if more alert Subjective awake, confused overnight, some right hip/groin pain, no nausea Physical Exam Gastrointestinal (Abdomen): Inspection/Auscultation: + abdominal surgical incision (clean, dry, some ecchymosis) Percussion/Palpation: abdomen soft Results & Data Vital Signs (Past 12 Hours) Vital Signs Temp Pulse Pulse Resp BP Pulse Ox 05/19/19 07:38 73 18 92 05/19/19 06:00 70 16 126/58 L 94 05/19/19 05:00 61 15 110/53 L 97 05/19/19 04:00 36.8 C 60 17 107/49 L 98 05/19/19 03:00 58 L 18 93/48 L 100 05/19/19 02:00 60 16 96/51 L 100 05/19/19 01:00 60 15 102/49 L 100 05/19/19 00:00 36.9 C 62 14 96/47 L 100 05/18/19 23:00 63 16 90/45 L 100 05/18/19 22:00 65 16 97/42 L 99 05/18/19 21:00 94 H 20 126/59 L 95 PG Care Time/CCT Total # of Minutes Spent Total Time Spent with Patient: Total time spent is greater than 50% in coordination of care (as documented) at patient's floor/unit and/or counseling patient:
[2019-05-19] MEDS ORDERED: OLANZAPINE 2.5 MG TAB PO PRN (09:15)
[2019-05-19] MEDS ORDERED: AMPICILLIN/SULBACTAM SOD 3,000 MG in 0.9 % SODIUM CHLORIDE 100 ML IV SCH (10:00)
--- NOTE | 2019-05-19 11:03 | Nephrology Progress Note ---
Date of Service May 19, 2019 Assessment & Plan (1) Acute kidney injury: DAVEY on CKD, in the setting of laparotomy for incarcerated hernia. Baseline creatinine 2.1 mg/dL. Clinical presentation consistent with ATN. CT did not demonstrate obstruction. UA with RBC/WBCs and protein in setting of Toribio catheter. Started on dialysis on 05/16/2019 for anuric acute kidney injury, hyperkalemia and metabolic acidosis. --No acute indication for HD today --Will recheck UO, Cr and lytes in am --okay to use diuretics as needed if there is any sign of volume overload. --dose medications for GFR less than 10. Document strict I/O's. Subjective Mr. Haddad was seen & examined in the ICU this morning. His family was present at bedside. Mr. Haddad c/o sore throat but denies fever, dyspnea or angina. His IJ dialysis catheter remains in place. Only 200 cc UO overnight Review of Systems Constitutional: no fever and no weakness Eyes: no worsening vision and no problem reported Ear, Nose, Mouth, Throat: no problem reported Respiratory: no dyspnea Cardiovascular: no chest pain and no palpitations Gastrointestinal: no abdominal pain, no nausea, no vomiting and no diarrhea/loose stools Genitourinary: no hematuria Musculoskeletal: no back pain Integumentary: no rash Neurologic: no confusion Physical Exam Constitutional: + frail appearing; not in distress Eyes: PERRL, conjunctivae normal, anicteric sclerae ENMT: external ear and nose normal, oropharynx normal Neck: trachea midline, no thyromegaly Respiratory: normal respiratory effort, lungs clear to auscultation Cardiovascular: RRR, no murmur, no edema Gastrointestinal (Abdomen): normal bowel sounds, soft, nontender, no hepatosplenomegaly Musculoskeletal: Extremities: no cyanosis Skin: no rashes, warm and dry Neurologic: awake; not confused Results & Data Vital Signs (Past 12 Hours) Vital Signs Temp Pulse Pulse Resp BP Pulse Ox 05/19/19 07:38 73 18 92 05/19/19 06:00 70 16 126/58 L 94 05/19/19 05:00 61 15 110/53 L 97 05/19/19 04:00 36.8 C 60 17 107/49 L 98 05/19/19 03:00 58 L 18 93/48 L 100 05/19/19 02:00 60 16 96/51 L 100 05/19/19 01:00 60 15 102/49 L 100 05/19/19 00:00 36.9 C 62 14 96/47 L 100 Laboratory Results Laboratory Tests 05/19/19 05/19/19 04:26 04:26 WBC 12.81 H Hgb 7.0 L Hct 20.8 L* Plt Count 68 L Sodium 135 L Potassium 3.6 Chloride 96 L Carbon Dioxide 31 BUN 39 H Creatinine 2.72 H D Glucose 104 H PG Care Time/CCT Total # of Minutes Spent Total Time Spent with Patient: Total time spent is greater than 50% in coordination of care (as documented) at patient's floor/unit and/or counseling patient:
[2019-05-19] MEDS: AMPICILLIN/SULBACTAM SOD 3,000 MG in 0.9 % SODIUM CHLORIDE 100 ML IV SCH ×2 (11:09→21:42)
--- NOTE | 2019-05-19 11:29 | Billing Data ---
Coding Level of Care Code 95714 Subseq Hosp Care Lvl 3
--- NOTE | 2019-05-19 12:20 | Hospitalist Progress Note ---
Date of Service May 19, 2019 Assessment & Plan (1) SBO (small bowel obstruction): Secondary to strangulated right inguinal hernia. POD #5 s/p reduction of incarcerated right inguinal hernia, small bowel resection (necrotic small bowel within the hernia sac) NG tube clamped on 05/19 x 4 hours and output has diminished, asymptomatic with clamping Not passing flatus or having bowel movement yet. With postoperative ileus -Surgery management appreciated-recommended advance to sips and chips if more alert today-we will do so Continue NG tube for now-management as per surgery -Continue pain control as needed- will add Tylenol p.o. today, avoid opioids in the setting of delirium as below -Continue electrolyte replacement as needed, and IV Pepcid -Is not on maintenance IV fluids due to renal failure need for dialysis -Watch I's and O's (2) Strangulated inguinal hernia: as above, status post surgical repair -Surgery following (3) Acute respiratory distress syndrome (ARDS): Secondary to aspiration pneumonitis vs. pulmonary edema secondary to acute renal failure, required intubation postoperatively Now extubated and weaning down on supplemental O2-currently at 2 L nasal cannula -Chest x-ray still with some pulmonary edema -Holding off on maintenance IV fluids -We will give diuretics as needed (4) Acute respiratory failure with hypoxia: In setting of sepsis. Extubated and managing to wean O2 with nasal cannula as above (5) Gram-negative bacteremia: Citrobacter koseri blood culture positive. Urine cultures negative. Suspect from ischemic bowel in strangulated hernia. Antibiotics as per ICU with sensitivities-currently treating with Zosyn Repeat blood cultures pending for resolution-no growth to date -Will need a total of 14 days of antibiotics but could convert to p.o. when able to tolerate (6) Severe sepsis with septic shock: With renal failure requiring hemodialysis With hypotension requiring vasopressors-now weaned off of norepinephrine and blood pressures improved (7) Acute renal failure due to tubular necrosis: No hydronephrosis on admission. Presentation consistent with ATN secondary to severe sepsis. Appreciate nephrology ongoing management with dialysis-no further dialysis neede d today Remains with oliguria but hopeful for post ATN diuresis in the next 1 to 2 days Appreciate nephrology ongoing management. Follow BMP Follow urine output -Maintain Toribio catheter (8) Delirium: Secondary to ICU delirium, was just recently extubated and required Precedex drip overnight on 05/18 -Improved but remains -will use Zyprexa as needed -Delirium prevention strategies -will need a one-on-one while still has dialysis catheter in his right IJ (9) Diastolic heart failure: Fluid overload in setting of renal failure. Fluid management with hemodialysis. (10) NPH (normal pressure hydrocephalus): Suspected history of this. Missed diagnostic lumbar puncture due to current admission. - will need to delay further work-up for this until after recovery (11) Stage 3 chronic kidney disease: With acute kidney injury secondary to ATN. See treatment above. Baseline creatinine around 2.1 -Follows with nephrology routinely -Avoid nephrotoxins -Renally dose medications when appropriate (12) Atrial fibrillation: A. fib/flutter. Chronic Rates controlled. Eliquis continues on hold due to DAVEY with downtrending hemoglobin. Restart full anticoagulation when more stable and hemoglobin not trending downward. (13) PAD (peripheral artery disease): (14) Type 2 diabetes mellitus: HbA1c 5.6 in February suggests no longer needs outpatient glipizide. Likely can be d/c on discharge. Appreciate glycemic control management by pharmacy. (15) Obstructive sleep apnea: CPAP @ night now that he is extubated. (16) Thrombocytopenia: Platelets steadily declining and now at 68 today Could be from sepsis Heparin antibody panel negative -Holding heparin products Holding Eliquis -Follow CBC (17) Anemia: With anemia of chronic kidney disease with acute blood loss anemia superimposed Hemoglobin dropped to 7.0 today No obvious bleeding ongoing and blood pressure is actually improving and off vasopressors Typed and crossed for 2 units of PRBCs but will hold at this time due to current volume overload -Follow CBC in the morning -Holding heparin SQ, holding Eliquis from home, holding aspirin from home (18) Gout: Holding home Uloric (19) Hypertension: Blood pressures low as above and now improving -Continue to hold home amlodipine, aspirin, lisinopril, metoprolol, torsemide (20) DVT prophylaxis: SCDs. With platelets dropping, HIT antibody checked and was negative, however will hold off on subcu heparin at this time Continue GI prophylaxis with famotidine. (21) Discharge planning issues: Disposition-stable for transfer/downgrade out of the ICU to PCU Prognosis remains guarded DNR/DNI Subjective Patient was on Precedex drip overnight for agitation and confusion. Now weaned off of that. He is weaned off of all vasopressors. No bleeding from anywhere. Has some mild abdominal groin pain. No flatus or bowel movement yet. Denies nausea. NG tube is been clamped for approximately 4 hours at the time I saw him and had minimal output after it was unclamped at 50 mL's. Still with minimal urine output. He remains in rate controlled atrial flutter on telemetry. I discussed his case with nephrology. After his family left after I saw him, he again became confused and agitated, was saying that he was seen holes in the wall and was very suspicious of interventions that the nurse was doing in the room. Review of Systems Review of Systems: All systems reviewed & are unremarkable except as noted in HPI & below (Does feel short of breath at times, denies chest pain) Physical Exam Constitutional: WD/WN, vitals as above Eyes: + anicteric sclerae ENMT: Ears: no hearing impairment Nose: + external nose abnormality (NG tube in place in the left nare) Neck: trachea midline, no thyromegaly Respiratory: normal respiratory effort and + cough; no respiratory distress Auscultation: + crackles (Bases bilaterally); no rhonchi and no wheezes Cardiovascular: Rate/Rhythm: regular rate and + irregularly irregular Heart Sounds: no murmur Extremities: + vascular access device (Right internal jugular catheter in place) Chest (Breasts): Chest: normal inspection of chest Gastrointestinal (Abdomen): Inspection/Auscultation: + hypoactive bowel sounds; + abdomen abnormal to inspection (Right inguinal region with leslie in place with small amount of surrounding ecchymosis, no erythema or drainage) Percussion/Palpation: + abdomen tender (Minimal in the right groin region without guarding) and abdomen soft Musculoskeletal: Extremities: extremities normal to inspection; no cyanosis and no clubbing Skin: no rashes, warm and dry Neurologic: moves all extremities and awake; no focal motor deficits Psychiatric: Orientation: alert, oriented to person, oriented to place and cooperative Eye Contact: good eye contact Affect: euthymic affect Genitourinary: Toribio catheter in place with very minimal clear dark yellow urine Lymphatic: no lymphedema Results & Data Vital Signs (Past 12 Hours) Vital Signs Temp Pulse Pulse Resp BP Pulse Ox 05/19/19 11:38 78 20 93 05/19/19 07:38 73 18 92 11/28/19 06:00 70 16 126/58 L 94 05/19/19 05:00 61 15 110/53 L 97 05/19/19 04:00 36.8 C 60 17 107/49 L 98 05/19/19 03:00 58 L 18 93/48 L 100 05/19/19 02:00 60 16 96/51 L 100 05/19/19 01:00 60 15 102/49 L 100 Laboratory Results 05/19/19 05/19/19 05/19/19 Range/Units 13:11 09:50 09:45 WBC (4.8-10.8) K/uL RBC (4.7-6.1) M/uL Hgb (14.0-18.0) g/dL Hct (42-52) % MCV (80-100) fL MCH (25-34) pg MCHC (32-36) g/dL RDW Std Deviation (36.4-46.3) fL RDW Coeff of Ekta (11.5-14.5) % Plt Count (130-400) K/uL MPV (7.4-10.4) fL Immature Gran % (Auto) % Neut % (Auto) % Lymph % (Auto) % [place] % (Auto) % Eos % (Auto) % Baso % (Auto) % Immature Gran # (Auto) (0.00-0.02) K/uL Neut # (Auto) (1.4-6.5) K/uL Lymph # (Auto) (1.2-3.4) K/uL [place] # (Auto) (0.11-0.59) K/uL Eos # (Auto) (0-0.5) K/uL Baso # (Auto) (0-0.2) K/uL Absolute Nucleated RBC (0-0) K/uL Nucleated RBC % (auto) % Toxic Vacuolation Dohle Bodies Sodium (136-145) mmol/L Potassium (3.5-5.1) mmol/L Chloride (98-107) mmol/L Carbon Dioxide (21-32) mmol/L Anion Gap (3-11) BUN (7-18) mg/dl Creatinine (0.6-1.4) mg/dl Est Cr Clr Drug Dosing ml/min Est GFR ( Amer) Est GFR (Non-Af Amer) BUN/Creatinine Ratio (10-20) Glucose (70-99) mg/dl POC Glucose 101 H (70-99) Calcium (8.5-10.1) mg/dl Phosphorus (2.5-4.9) mg/dl Magnesium (1.8-2.4) mg/dl Heparin-PF4 Ab Screen Negative (Negative) Blood Type B Positive Antibody Screen NEGATIVE 05/19/19 05/19/19 05/19/19 Range/Units 04:27 04:26 04:26 WBC 12.81 H (4.8-10.8) K/uL RBC 2.34 L (4.7-6.1) M/uL Hgb 7.0 L (14.0-18.0) g/dL Hct 20.8 L* (42-52) % MCV 88.9 (80-100) fL MCH 29.9 (25-34) pg MCHC 33.7 (32-36) g/dL RDW Std Deviation 46.3 (36.4-46.3) fL RDW Coeff of Ekta 14.0 (11.5-14.5) % Plt Count 68 L (130-400) K/uL MPV 10.6 H (7.4-10.4) fL Immature Gran % (Auto) 0.2 % Neut % (Auto) 80.5 % Lymph % (Auto) 7.9 % [place] % (Auto) 11.2 % Eos % (Auto) 0.1 % Baso % (Auto) 0.1 % Immature Gran # (Auto) 0.03 H (0.00-0.02) K/uL Neut # (Auto) 10.31 H (1.4-6.5) K/uL Lymph # (Auto) 1.01 L (1.2-3.4) K/uL [place] # (Auto) 1.44 H (0.11-0.59) K/uL Eos # (Auto) 0.01 (0-0.5) K/uL Baso # (Auto) 0.01 (0-0.2) K/uL Absolute Nucleated RBC 0.04 H (0-0) K/uL Nucleated RBC % (auto) 0.3 % Toxic Vacuolation 1+ Dohle Bodies 1+ Sodium 135 L (136-145) mmol/L Potassium 3.6 (3.5-5.1) mmol/L Chloride 96 L (98-107) mmol/L Carbon Dioxide 31 (21-32) mmol/L Anion Gap 8.0 (3-11) BUN 39 H (7-18) mg/dl Creatinine 2.72 H D (0.6-1.4) mg/dl Est Cr Clr Drug Dosing 29.2 ml/min Est GFR ( Amer) 25.0 Est GFR (Non-Af Amer) 21.6 BUN/Creatinine Ratio 14.5 (10-20) Glucose 104 H (70-99) mg/dl POC Glucose 97 (70-99) Calcium 8.0 L (8.5-10.1) mg/dl Phosphorus 3.0 (2.5-4.9) mg/dl Magnesium 2.1 (1.8-2.4) mg/dl Heparin-PF4 Ab Screen (Negative) Blood Type Antibody Screen 05/18/19 05/18/19 Range/Units 22:52 16:22 WBC (4.8-10.8) K/uL RBC (4.7-6.1) M/uL Hgb (14.0-18.0) g/dL Hct (42-52) % MCV (80-100) fL MCH (25-34) pg MCHC (32-36) g/dL RDW Std Deviation (36.4-46.3) fL RDW Coeff of Ekta (11.5-14.5) % Plt Count (130-400) K/uL MPV (7.4-10.4) fL Immature Gran % (Auto) % Neut % (Auto) % Lymph % (Auto) % [place] % (Auto) % Eos % (Auto) % Baso % (Auto) % Immature Gran # (Auto) (0.00-0.02) K/uL Neut # (Auto) (1.4-6.5) K/uL Lymph # (Auto) (1.2-3.4) K/uL [place] # (Auto) (0.11-0.59) K/uL Eos # (Auto) (0-0.5) K/uL Baso # (Auto) (0-0.2) K/uL Absolute Nucleated RBC (0-0) K/uL Nucleated RBC % (auto) % Toxic Vacuolation Dohle Bodies Sodium (136-145) mmol/L Potassium (3.5-5.1) mmol/L Chloride (98-107) mmol/L Carbon Dioxide (21-32) mmol/L Anion Gap (3-11) BUN (7-18) mg/dl Creatinine (0.6-1.4) mg/dl Est Cr Clr Drug Dosing ml/min Est GFR ( Amer) Est GFR (Non-Af Amer) BUN/Creatinine Ratio (10-20) Glucose (70-99) mg/dl POC Glucose 104 H 107 H (70-99) Calcium (8.5-10.1) mg/dl Phosphorus (2.5-4.9) mg/dl Magnesium (1.8-2.4) mg/dl Heparin-PF4 Ab Screen (Negative) Blood Type Antibody Screen Diagnostic Findings Chest x-ray image personally reviewed by me and agree with the following report: XR chest 1V portable CLINICAL HISTORY: 78 years-old Male presenting with Resp failure. TECHNIQUE: Portable upright AP view of the chest was obtained. COMPARISON: 05/18/2019. FINDINGS: Right internal jugular central venous catheter terminates in the mid SVC. Nasogastric tube descends below the diaphragm, terminus not visualized. Numerous external leads overlie the thorax. Atherosclerosis of the aortic arch. Cardiac silhouette mildly enlarged. Prominence of the main pulmonary artery. Pulmonary vascular prominence. Bronchial wall cuffing is suspected. Similar appearance of the bibasilar opacities with suspected small bilateral pleural effusions. No pneumothorax. Degenerative changes of the thoracic spine. Upper abdomen normal. IMPRESSION: 1. Unchanged appearance of volume overload and congestive change. 2. Persistent mild pulmonary edema. 3. Suspected small bilateral pleural effusions. PG Care Time/CCT Total # of Minutes Spent Total Time Spent with Patient: Total time spent is greater than 50% in coordination of care (as documented) at patient's floor/unit and/or counseling patient: (1) Type 2 diabetes mellitus Chronic kidney disease stage: stage 3 (moderate) Diabetes mellitus complication detail: with chronic kidney disease Diabetes mellitus complication status: with kidney complications Diabetes mellitus data integrity specialist insulin use: without data integrity specialist use Qualified Code(s): E11.22 - Type 2 diabetes mellitus with diabetic chronic kidney disease; N18.3 - Chronic kidney disease, stage 3 (moderate) (2) Atrial fibrillation Atrial fibrillation type: paroxysmal Qualified Code(s): I48.0 - Paroxysmal atrial fibrillation (3) Diastolic heart failure Heart failure chronicity: chronic Qualified Code(s): I50.32 - Chronic diastolic (congestive) heart failure (4) Anemia Anemia type: unspecified type Qualified Code(s): D64.9 - Anemia, unspecified (5) Hypertension Hypertension type: essential hypertension Qualified Code(s): I10 - Essential (primary) hypertension
[2019-05-19] MEDS ORDERED: ACETAMINOPHEN 325 MG TAB PO PRN (14:57)
[2019-05-19] MEDS ORDERED: OLANZapine 10 MG/2.1 ML SDV IM STA (19:54)
[2019-05-20 06:39] LABS: Hematocrit (blood only) 22.8 % (42-52); Hemoglobin 7.6 g/dL (14.0-18.0); Mean Corpuscular Hemoglobin 29.8 pg (25-34); Mean Corpuscular Hgb Conc 33.3 g/dL (32-36); Mean Corpuscular Volume 89.4 fL (80-100); Nucleated RBC # (auto) 0.02 K/uL (0-0); Nucleated RBC % (auto) 0.2 %; RDW Coefficient of Variation 14.1 % (11.5-14.5); RDW Standard Deviation 46.4 fL (36.4-46.3); Red Blood Count 2.55 M/uL (4.7-6.1); White Blood Count 13.41 K/uL (4.8-10.8)
[2019-05-20 06:45] LABS: Mean Platelet Volume 9.9 fL (7.4-10.4); Platelet Count 98 K/uL (130-400)
[2019-05-20] MEDS: ALBUT/IPRATROP 3MG/0.5MG NEB 3 ML VIAL NEB SCH ×4 (06:51→19:39)
[2019-05-20 07:01] LABS: Basophils # (auto) 0.01 K/uL (0-0.2); Basophils % (auto) 0.1 %; Eosinophils # (auto) 0.04 K/uL (0-0.5); Eosinophils % (auto) 0.3 %; Immature Granulocytes % (auto) 0.7 %; Lymphocytes % (auto) 11.2 %; Monocytes # (auto) 1.83 K/uL (0.11-0.59); Monocytes % (auto) 13.6 %; Neutrophils # (auto) 9.93 K/uL (1.4-6.5); Neutrophils % (auto) 74.1 %; Toxic Granulation 1+
[2019-05-20 07:09] LABS: BUN Creatinine Ratio 16.9 (10-20); Calcium 8.3 mg/dl (8.5-10.1); Creatinine Clr Calc Pharmacy 22.5 ml/min; Est GFR (African American) 18.5; Est GFR (Non-African American) 15.9; Potassium 3.7 mmol/L (3.5-5.1)
[2019-05-20] MEDS: FAMOTIDINE 20 MG in SYRINGE 3 ML IV SCH (08:17)
[2019-05-20] MEDS ORDERED: SODIUM CHLORIDE 0.9% 1000ML 1,000 ML IV PRN (09:08)
[2019-05-20] MEDS ORDERED: HEPARIN SOD (PORCINE) 1000 UNIT/ML 10 ML VIAL IV ONE (09:08)
--- NOTE | 2019-05-20 09:15 | Nephrology Progress Note ---
Date of Service May 20, 2019 Assessment & Plan (1) Acute kidney injury: DAVEY on CKD, in the setting of laparotomy for incarcerated hernia. Baseline creatinine 2.1 mg/dL. Clinical presentation consistent with ATN. CT did not demonstrate obstruction. UA with RBC/WBCs and protein in setting of Toribio catheter. Started on dialysis on 05/16/2019 for anuric acute kidney injury, hyperkalemia and metabolic acidosis. --Remains oliguric. Creatinine increasing off dialysis --Will provide HD today. No UF. Monitor creatinine and UO over the weekend --dose medications for GFR less than 10. Document strict I/O's. Subjective Mr. Haddad was seen & examined in the PCU this morning. UO only 285 cc overnight. No medical concerns voiced but oriented to self only Review of Systems Constitutional: no fever and no chills Eyes: no worsening vision and no problem reported Ear, Nose, Mouth, Throat: no problem reported Respiratory: no cough and no dyspnea Cardiovascular: no chest pain, no palpitations and no edema Gastrointestinal: no abdominal pain, no nausea, no vomiting and no diarrhea/loose stools Genitourinary: no dysuria, no urinary hesitancy and no hematuria Musculoskeletal: no back pain Integumentary: no rash Neurologic: no falls, no dizziness and no confusion Physical Exam Constitutional: + frail appearing; not in distress Eyes: PERRL, conjunctivae normal, anicteric sclerae ENMT: external ear and nose normal, oropharynx normal Neck: trachea midline, no thyromegaly Respiratory: normal respiratory effort, lungs clear to auscultation Cardiovascular: RRR, no murmur, no edema Gastrointestinal (Abdomen): normal bowel sounds, soft, nontender, no hepatosplenomegaly Musculoskeletal: Extremities: no cyanosis Skin: no rashes, warm and dry Neurologic: awake; not confused Results & Data Vital Signs (Past 12 Hours) Vital Signs Temp Pulse Pulse Resp BP Pulse Ox 05/20/19 07:23 36.7 C 87 18 158/65 H 98 05/20/19 06:54 85 20 97 05/20/19 03:10 37 C 88 20 167/71 H 99 05/19/19 23:04 36.7 C 87 19 166/71 H 98 Laboratory Results Laboratory Tests 05/20/19 05/20/19 06:15 06:15 WBC 13.41 H Hgb 7.6 L Hct 22.8 L Plt Count 98 L Sodium 135 L Potassium 3.7 Chloride 96 L Carbon Dioxide 27 BUN 59 H D Creatinine 3.49 H D Glucose 86 PG Care Time/CCT Total # of Minutes Spent Total Time Spent with Patient: Total time spent is greater than 50% in coordination of care (as documented) at patient's floor/unit and/or counseling patient:
--- NOTE | 2019-05-20 09:47 | Surgery Progress Note ---
Date of Service May 20, 2019 Assessment & Plan (1) Incarcerated inguinal hernia: POD 6 strangulated hernia repair will d/c NG start on clears activity as rosa maria Subjective still some confusion- states he "was at the ball game last night" Physical Exam Gastrointestinal (Abdomen): Inspection/Auscultation: abdomen not distended Percussion/Palpation: abdomen soft; abdomen nontender NG 100 cc Results & Data Vital Signs (Past 12 Hours) Vital Signs Temp Pulse Pulse Resp BP Pulse Ox 05/20/19 07:23 36.7 C 87 18 158/65 H 98 05/20/19 06:54 85 20 97 05/20/19 03:10 37 C 88 20 167/71 H 99 05/19/19 23:04 36.7 C 87 19 166/71 H 98 PG Care Time/CCT Total # of Minutes Spent Total Time Spent with Patient: Total time spent is greater than 50% in coordination of care (as documented) at patient's floor/unit and/or counseling patient:
[2019-05-20] MEDS: AMPICILLIN/SULBACTAM SOD 3,000 MG in 0.9 % SODIUM CHLORIDE 100 ML IV SCH ×2 (10:05→21:17)
[2019-05-20] MEDS ORDERED: OLANZapine 5 MG TABLET PO PRN (14:09)
--- NOTE | 2019-05-20 14:34 | Hospitalist Progress Note ---
Date of Service May 20, 2019 Assessment & Plan (1) SBO (small bowel obstruction): Secondary to strangulated right inguinal hernia. POD #6 s/p reduction of incarcerated right inguinal hernia, small bowel resection (necrotic small bowel within the hernia sac) With postoperative ileus now resolving He is passing flatus, but no bowel movement yet NG tube removed on 05/20 -Surgery advanced diet to clear liquids -Surgery management appreciated -Continue pain control as needed with Tylenol p.o., avoid opioids in the setting of delirium as below -Continue electrolyte replacement as needed, and convert IV Pepcid to p.o. Pepcid for in the morning -Is not on maintenance IV fluids due to renal failure and need for dialysis -Watch I's and O's (2) Strangulated inguinal hernia: as above, status post surgical repair -Surgery following -Dyllan in place in right lower abdomen/inguinal region (3) Acute respiratory distress syndrome (ARDS): Secondary to aspiration pneumonitis vs. pulmonary edema secondary to acute renal failure He required intubation postoperatively Now extubated and weaned down on supplemental O2-continues at 2 L nasal cannula -Chest x-ray still with some pulmonary edema on 05/19 -Holding off on maintenance IV fluids as above -Received hemodialysis again on 05/20-no volume removed (4) Acute respiratory failure with hypoxia: In setting of sepsis. Extubated and managing to wean O2 with nasal cannula as above (5) Gram-negative bacteremia: Citrobacter koseri blood culture positive. Urine cultures negative. Suspect from ischemic bowel in strangulated hernia. -Continues on Unasyn Repeat blood cultures pending for resolution-no growth to date -Will need a total of 14 days of antibiotics from the date of sterile blood cultures but could convert to p.o. Augmentin when able to tolerate-last date of treatment would be 05/31/2019 (6) Severe sepsis with septic shock: With renal failure requiring hemodialysis With respiratory failure requiring intubation With hypotension requiring vasopressors-now weaned off of norepinephrine and blood pressures improved (7) Acute renal failure due to tubular necrosis: No hydronephrosis on admission. Presentation consistent with ATN secondary to severe sepsis. Appreciate nephrology ongoing management with dialysis-had worsening renal function today-had hemodialysis again on 05/20 Remains with oliguria but hopeful for post ATN diuresis in the next 1 to 2 days Appreciate nephrology ongoing management. -Continue to follow BMP -Continue to follow urine output -Maintain Toribio catheter (8) Delirium: Secondary to ICU delirium, was just recently extubated and required Precedex drip overnight on 05/18 -Improved but remains with hallucinations -Increase Zyprexa to 5 mg p.o. nightly as needed agitation -Delirium prevention strategies-good sleep-wake cycles, keeping blinds open during the daytime, redirection, supportive care, avoidance of opioids and benzodiazepines as well as antihistamines -Continue with a one-on-one while still has dialysis catheter in his right IJ to prevent this from being pulled out (9) Diastolic heart failure: Fluid overload in setting of renal failure. Fluid management with hemodialysis. (10) NPH (normal pressure hydrocephalus): Suspected history of this. Missed diagnostic lumbar puncture due to current admission. - will need to delay further work-up for this until after recovery (11) Stage 3 chronic kidney disease: With acute kidney injury secondary to ATN. See treatment above. Baseline creatinine around 2.1 -Follows with nephrology routinely -Avoid nephrotoxins -Renally dose medications when appropriate (12) Atrial fibrillation: A. fib/flutter. Chronic Rates remain controlled. Eliquis continues on hold due to DAVEY with downtrending hemoglobin. Restart full anticoagulation when more stable and hemoglobin not trending downward-would also check with surgery prior to starting this. (13) PAD (peripheral artery disease): Has known LE PAD - LT SFA, tibial disease as per cardiology notes -Aspirin and statin are on hold but could be restarted once he is taking p.o. and hemoglobin not dropping (14) Type 2 diabetes mellitus: HbA1c 5.6 in February suggests no longer needs outpatient glipizide. Likely can be d/c on discharge. Appreciate glycemic control management by pharmacy. (15) Obstructive sleep apnea: Is considered mild and he is not on CPAP at home (16) Thrombocytopenia: Platelets were steadily declining and matthew was 68-now improved to 98 Could be from sepsis Heparin antibody panel negative No evidence of bleeding -Continue holding heparin products -Follow CBC (17) Anemia: With anemia of chronic kidney disease with acute blood loss anemia superimposed Hemoglobin dropped to 7.0 and then improved to 7.6 today No obvious bleeding ongoing and blood pressure is actually improving/high and remains off vasopressors Typed and crossed for 2 units of PRBCs but will hold at this time due to current volume overload and improvement -Follow CBC again in the morning -Continue holding heparin SQ, holding Eliquis from home, holding aspirin from home (18) Gout: -Will restart home Uloric, but unclear if on formulary or not (19) Hypertension: Blood pressures were low as above requiring vasopressors-now off vasopressors for 2 days and blood pressures are becoming elevated again -Continue to hold home amlodipine, aspirin, lisinopril, and torsemide -Restart home metoprolol tartrate 12.5 mg p.o. twice daily -Would restart amlodipine tomorrow if blood pressures remain elevated (20) Adrenal nodule: Incidentally noted 2.3 cm right adrenal nodule and also noted nodularity of the left adrenal gland on CT -Follow as outpatient (21) Asymptomatic cholelithiasis: Noted numerous gallstones on CT the abdomen/no CBD dilatation, asymptomatic -Follow clinically (22) DVT prophylaxis: SCDs. With platelets previously dropping, HIT antibody checked and was negative, however will hold off on subcu heparin at this time. Plan to restart Eliquis possibly tomorrow Continue GI prophylaxis with famotidine. (23) Discharge planning issues: Disposition-continued stay on PCU OT recommending inpatient rehab PT evaluation attempted but not completed yet due to patient having hallucinations and just finishing hemodialysis DNR/DNI Subjective Patient with continuing confusion and hallucinations overnight, received IM Zyprexa. He is still confused today and tells me he thinks he is in the "ORB." He is not pulling at lines but is still requiring a one-on-one sitter. He had hemodialysis today with no volume removed. He is passing some flatus, no bowel movement. His diet was advanced to clears by surgery and he tolerated that well for lunch. No evidence of bleeding from anywhere. He reports some mild groin and abdominal pain. Denies headache or lightheadedness. No chest pain or shortness of breath. Telemetry with atrial flutter with rates in the 80s to 90s Review of Systems Review of Systems: All systems reviewed & are unremarkable except as noted in HPI & below Physical Exam Constitutional: WD/WN, vitals as above Eyes: + anicteric sclerae ENMT: Ears: no hearing impairment Nose: no external nose abnormality (NG tube removed) Neck: trachea midline, no thyromegaly Respiratory: normal respiratory effort; no respiratory distress and no cough Auscultation: + crackles (Very minimal, bibasilar, improved from previous); no rhonchi and no wheezes Cardiovascular: Rate/Rhythm: regular rate and + irregularly irregular Heart Sounds: no murmur Extremities: + vascular access device (Right internal jugular catheter in place) Chest (Breasts): Chest: normal inspection of chest Gastrointestinal (Abdomen): Inspection/Auscultation: normal bowel sounds; + abdomen abnormal to inspection (Right inguinal region with dyllan in place with small amount of surrounding ecchymosis, no erythema or drainage) and abdomen not distended Percussion/Palpation: abdomen soft Musculoskeletal: Extremities: extremities normal to inspection; no cyanosis and no clubbing Skin: no rashes, warm and dry Neurologic: moves all extremities and awake; no focal motor deficits Psychiatric: Orientation: alert, oriented to person and cooperative; + not oriented to place and + not oriented to time Eye Contact: good eye contact Affect: euthymic affect Cognition: + recent memory not intact Genitourinary: Toribio catheter in place with minimal yellow urine Lymphatic: no lymphedema Results & Data Vital Signs (Past 12 Hours) Vital Signs Temp Pulse Pulse Pulse Pulse Resp BP 05/20/19 13:40 80 158/76 H 05/20/19 13:19 88 156/78 H 05/20/19 13:16 37.1 C 89 05/20/19 13:00 81 154/74 H 05/20/19 12:40 81 168/76 H 05/20/19 12:20 85 172/70 H 05/20/19 12:00 85 172/70 H 05/20/19 11:40 87 175/73 H 05/20/19 11:20 87 175/73 H 05/20/19 11:00 79 161/67 H 05/20/19 10:30 37.0 C 91 H 05/20/19 08:00 84 05/20/19 07:23 36.7 C 87 18 05/20/19 06:54 85 20 05/20/19 03:10 37 C 88 20 BP Pulse Ox 05/20/19 13:40 05/20/19 13:19 05/20/19 13:16 05/20/19 13:00 05/20/19 12:40 05/20/19 12:20 05/20/19 12:00 05/20/19 11:40 05/20/19 11:20 05/20/19 11:00 05/20/19 10:30 05/20/19 08:00 05/20/19 07:23 158/65 H 98 05/20/19 06:54 97 05/20/19 03:10 167/71 H 99 Laboratory Results 05/20/19 05/20/19 Range/Units 06:15 06:15 WBC 13.41 H (4.8-10.8) K/uL RBC 2.55 L (4.7-6.1) M/uL Hgb 7.6 L (14.0-18.0) g/dL Hct 22.8 L (42-52) % MCV 89.4 (80-100) fL MCH 29.8 (25-34) pg MCHC 33.3 (32-36) g/dL RDW Std Deviation 46.4 H (36.4-46.3) fL RDW Coeff of Ekta 14.1 (11.5-14.5) % Plt Count 98 L (130-400) K/uL MPV 9.9 (7.4-10.4) fL Immature Gran % (Auto) 0.7 % Neut % (Auto) 74.1 % Lymph % (Auto) 11.2 % [place] % (Auto) 13.6 % Eos % (Auto) 0.3 % Baso % (Auto) 0.1 % Immature Gran # (Auto) 0.10 H (0.00-0.02) K/uL Neut # (Auto) 9.93 H (1.4-6.5) K/uL Lymph # (Auto) 1.50 (1.2-3.4) K/uL [place] # (Auto) 1.83 H (0.11-0.59) K/uL Eos # (Auto) 0.04 (0-0.5) K/uL Baso # (Auto) 0.01 (0-0.2) K/uL Absolute Nucleated RBC 0.02 H (0-0) K/uL Nucleated RBC % (auto) 0.2 % Toxic Granulation 1+ Sodium 135 L (136-145) mmol/L Potassium 3.7 (3.5-5.1) mmol/L Chloride 96 L (98-107) mmol/L Carbon Dioxide 27 (21-32) mmol/L Anion Gap 12.0 H (3-11) BUN 59 H D (7-18) mg/dl Creatinine 3.49 H D (0.6-1.4) mg/dl Est Cr Clr Drug Dosing 22.5 ml/min Est GFR ( Amer) 18.5 Est GFR (Non-Af Amer) 15.9 BUN/Creatinine Ratio 16.9 (10-20) Glucose 86 (70-99) mg/dl Calcium 8.3 L (8.5-10.1) mg/dl PG Care Time/CCT Total # of Minutes Spent Total Time Spent with Patient: Total time spent is greater than 50% in coordination of care (as documented) at patient's floor/unit and/or counseling patient: (1) Type 2 diabetes mellitus Chronic kidney disease stage: stage 3 (moderate) Diabetes mellitus complication detail: with chronic kidney disease Diabetes mellitus complication status: with kidney complications Diabetes mellitus buttermaker helper insulin use: without buttermaker helper use Qualified Code(s): E11.22 - Type 2 diabetes mellitus with diabetic chronic kidney disease; N18.3 - Chronic kidney disease, stage 3 (moderate) (2) Anemia Anemia type: unspecified type Qualified Code(s): D64.9 - Anemia, unspecified (3) Atrial fibrillation Atrial fibrillation type: paroxysmal Qualified Code(s): I48.0 - Paroxysmal atrial fibrillation (4) Diastolic heart failure Heart failure chronicity: chronic Qualified Code(s): I50.32 - Chronic diastolic (congestive) heart failure (5) Hypertension Hypertension type: essential hypertension Qualified Code(s): I10 - Essential (primary) hypertension
[2019-05-20] MEDS: GABAPENTIN 100 MG CAP PO SCH (17:54)
[2019-05-20] MEDS: METOPROLOL TARTRATE 25 MG TAB PO SCH ×2 (17:54→21:16)
[2019-05-20] MEDS: FLUVOXAMINE MALEATE 50 MG TAB PO SCH (21:15)
[2019-05-21 06:16] LABS: Basophils # (auto) 0.01 K/uL (0-0.2); Basophils % (auto) 0.1 %; Eosinophils # (auto) 0.07 K/uL (0-0.5); Eosinophils % (auto) 0.7 %; Hematocrit (blood only) 21.3 % (42-52); Hemoglobin 7.1 g/dL (14.0-18.0); Immature Granulocytes # (auto) 0.07 K/uL (0.00-0.02); Immature Granulocytes % (auto) 0.7 %; Lymphocytes # (auto) 1.41 K/uL (1.2-3.4); Lymphocytes % (auto) 13.5 %; Mean Corpuscular Hemoglobin 29.6 pg (25-34); Mean Corpuscular Hgb Conc 33.3 g/dL (32-36); Mean Corpuscular Volume 88.8 fL (80-100); Mean Platelet Volume 10.1 fL (7.4-10.4); Monocytes # (auto) 1.15 K/uL (0.11-0.59); Neutrophils # (auto) 7.75 K/uL (1.4-6.5); Platelet Count 136 K/uL (130-400); RDW Coefficient of Variation 14.1 % (11.5-14.5); RDW Standard Deviation 46.2 fL (36.4-46.3); White Blood Count 10.46 K/uL (4.8-10.8)
[2019-05-21 06:45] LABS: Basophilic Stippling 1+; Polychromasia 1+
[2019-05-21 06:49] LABS: Potassium 3.5 mmol/L (3.5-5.1)
[2019-05-21 07:07] LABS: BUN Creatinine Ratio 14.3 (10-20); Creatinine Clr Calc Pharmacy 24.9 ml/min; Est GFR (African American) 20.8; Est GFR (Non-African American) 17.9; Magnesium 2.1 mg/dl (1.8-2.4)
[2019-05-21 07:10] LABS: Phosphorus 3.9 mg/dl (2.5-4.9)
[2019-05-21] MEDS: ALBUT/IPRATROP 3MG/0.5MG NEB 3 ML VIAL NEB SCH ×4 (07:22→18:58)
[2019-05-21] MEDS: FEBUXOSTAT 40 MG TABLET PO SCH (08:40)
[2019-05-21] MEDS: METOPROLOL TARTRATE 25 MG TAB PO SCH ×2 (08:40→20:55)
[2019-05-21] MEDS ORDERED: HEPARIN SOD 5,000 UNIT/0.5 ML VIAL SQ STA (09:20)
--- NOTE | 2019-05-21 09:43 | Surgery Progress Note ---
Date of Service May 21, 2019 Assessment & Plan (1) Incarcerated inguinal hernia: POD#7 inguinal hernia repair Patient is tolerating a clear liquid diet, okay to advance to full liquids today Await return of bowel function Activity as tolerates Subjective Patient offers no complaints from overnight. Says his belly feels okay. Cannot recall if he's passed gas or any BM's yet. Physical Exam Physical Exam: awake, lying in bed Gastrointestinal (Abdomen): Inspection/Auscultation: + abdominal surgical incision (c/d/i with surgical leslie in place) Percussion/Palpation: abdomen soft Results & Data Vital Signs (Past 12 Hours) Vital Signs Temp Pulse Pulse Pulse Resp BP BP 05/21/19 07:51 36.9 C 66 18 135/66 05/21/19 07:22 90 18 05/21/19 03:33 36.9 C 71 22 154/68 H 05/21/19 00:00 87 05/20/19 23:45 36.3 C L 79 20 148/66 H Pulse Ox 05/21/19 07:51 96 05/21/19 07:22 96 05/21/19 03:33 97 05/21/19 00:00 05/20/19 23:45 100 PG Care Time/CCT Total # of Minutes Spent Total Time Spent with Patient: Total time spent is greater than 50% in coordination of care (as documented) at patient's floor/unit and/or counseling patient:
[2019-05-21] MEDS: APIXABAN 2.5 MG TAB PO SCH ×2 (10:36→20:55)
[2019-05-21] MEDS: AMPICILLIN/SULBACTAM SOD 3,000 MG in 0.9 % SODIUM CHLORIDE 100 ML IV SCH (10:36)
--- NOTE | 2019-05-21 10:40 | Nephrology Progress Note ---
Date of Service May 21, 2019 Assessment & Plan (1) Acute kidney injury: DAVEY on CKD, in the setting of incarcerated hernia. Baseline creatinine 2.1 mg/dL. Clinical presentation consistent with ATN. CT did not demonstrate obstruction. UA with RBC/WBCs and protein in setting of Toribio catheter. Started on dialysis on 05/16/2019 for anuric acute kidney injury, hyperkalemia and metabolic acidosis. --Dialyzed yesterday. No UF. No complications --UO 535 cc last 24 hours. Electrolyte balance acceptable. No acute indication for SPEECH THERAPIST today. Will reassess in am (2) Chronic kidney disease, stage III (moderate): --Baseline Cr 2.1 (3) Incarcerated inguinal hernia: --s/p operative repair strangulated R inguinal hernia 05/14 --Remains on empiric IV Unasyn. Dosing as per pharmacy technologist Subjective Mr. Haddad was seen & examined in his hospital room this morning. He is oriented to self and place and will follow simple one step commands. staffing program manager reports that he became confused overnight and has a 1:1 sitter present Review of Systems Constitutional: no fever and no chills Eyes: no worsening vision and no problem reported Ear, Nose, Mouth, Throat: no problem reported Respiratory: no cough and no dyspnea Cardiovascular: no chest pain, no palpitations and no edema Gastrointestinal: no abdominal pain, no nausea, no vomiting and no diarrhea/loose stools Genitourinary: no dysuria, no urinary hesitancy and no hematuria Musculoskeletal: no back pain Integumentary: no rash Neurologic: no falls, no dizziness and no confusion Physical Exam Constitutional: + frail appearing; not in distress Eyes: PERRL, conjunctivae normal, anicteric sclerae ENMT: external ear and nose normal, oropharynx normal Neck: trachea midline, no thyromegaly Respiratory: normal respiratory effort, lungs clear to auscultation Cardiovascular: RRR, no murmur, no edema Gastrointestinal (Abdomen): normal bowel sounds, soft, nontender, no hepatosplenomegaly Musculoskeletal: Extremities: no cyanosis Skin: no rashes, warm and dry Neurologic: awake; not confused Results & Data Vital Signs (Past 12 Hours) Vital Signs Temp Pulse Pulse Pulse Resp BP BP 05/21/19 07:51 36.9 C 66 18 135/66 05/21/19 07:22 90 18 11/30/19 03:33 36.9 C 71 22 154/68 H 05/21/19 00:00 87 05/20/19 23:45 36.3 C L 79 20 148/66 H Pulse Ox 05/21/19 07:51 96 05/21/19 07:22 96 05/21/19 03:33 97 05/21/19 00:00 05/20/19 23:45 100 Laboratory Results Laboratory Tests 05/21/19 05/21/19 05:40 05:40 WBC 10.46 Hgb 7.1 L Hct 21.3 L Plt Count 136 Sodium 133 L Potassium 3.5 Chloride 97 L Carbon Dioxide 27 BUN 45 H Creatinine 3.17 H D Glucose 134 H PG Care Time/CCT Total # of Minutes Spent Total Time Spent with Patient: Total time spent is greater than 50% in coordination of care (as documented) at patient's floor/unit and/or counseling patient:
[2019-05-21] MEDS ORDERED: SODIUM CHLORIDE 0.9% 250 ML IV PRN (12:59)
[2019-05-21] MEDS: FLUVOXAMINE MALEATE 50 MG TAB PO SCH (20:56)
[2019-05-21] MEDS: GABAPENTIN 100 MG CAP PO SCH (20:56)
[2019-05-21] MEDS ORDERED: HEPARIN SOD 5,000 UNIT/0.5 ML VIAL SQ SCH (21:00)
--- NOTE | 2019-05-21 22:14 | Hospitalist Progress Note ---
Date of Service May 21, 2019 Assessment & Plan (1) SBO (small bowel obstruction): Secondary to strangulated right inguinal hernia. POD #7 s/p reduction of incarcerated right inguinal hernia, small bowel resection (necrotic small bowel within the hernia sac) No bowel movement today NG tube removed on 05/20 Unable to tolerate much clear liquids for breakfast. Appreciate ongoing surgery management (2) Strangulated inguinal hernia: as above, status post surgical repair -Surgery following -Dyllan in place in right lower abdomen/inguinal region (3) Acute respiratory distress syndrome (ARDS): Now resolved (4) Acute respiratory failure with hypoxia: Now resolved In setting of sepsis. Extubated and managing to wean O2 with nasal cannula as above (5) Gram-negative bacteremia: Repeat blood cultures negative to date Pansensitive Citrobacter koseri blood culture positive. Suspected from ischemic bowel in strangulated hernia. Once his bowels are definitively working we will switch to p.o. Augmentin for total of 14 days of antibiotics -last date of treatment would be 05/31/2019. For now waiting for ileus to resolve we will continue on IV Unasyn (6) Severe sepsis with septic shock: Now resolved with renal failure requiring hemodialysis With respiratory failure requiring intubation With hypotension requiring vasopressors (7) Acute renal failure due to tubular necrosis: No hydronephrosis on admission. Presentation consistent with ATN secondary to severe sepsis. Appreciate nephrology ongoing management with ongoing diuresis, urine output is increasing but not significantly Maintain Toribio catheter (8) Delirium: Delirium on the background of recent sepsis No longer having hallucinations during the daytime. Appears much improved now his family is at bedside Continue Zyprexa to 5 mg p.o. nightly as needed agitation Delirium prevention strategies-good sleep-wake cycles, keeping blinds open during the daytime, redirection, supportive care, avoidance of opioids and b enzodiazepines as well as antihistamines Continue with a one-on-one while still has dialysis catheter in his right IJ to prevent this from being pulled out (9) Diastolic heart failure: Fluid overload in setting of renal failure. Fluid management with hemodialysis. (10) NPH (normal pressure hydrocephalus): Suspected history of this. Missed diagnostic lumbar puncture due to current admission. - will need to delay further work-up for this until after recovery (11) Stage 3 chronic kidney disease: With acute kidney injury secondary to ATN. See treatment above. Unknown new baseline and whether he will be able to get off dialysis at this time. (12) Atrial fibrillation: A. fib/flutter. Chronic Rates controlled on metoprolol. Restart Eliquis at lower dose 2.5 mg twice daily (13) PAD (peripheral artery disease): Has known LE PAD - LT SFA, tibial disease as per cardiology notes -Aspirin and statin are on hold with bowel ileus (14) Type 2 diabetes mellitus: HbA1c 5.6 in February suggests no longer needs outpatient glipizide. Likely can be d/c on discharge. Effectively no longer has this diagnosis based on current blood glucose levels and prior HbA1c. (15) Obstructive sleep apnea: Is considered mild and he is not on CPAP at home (16) Thrombocytopenia: Improving platelets in setting of sepsis with negative HIT labs Continue to monitor (17) Anemia: Anemia of chronic kidney disease with acute blood loss anemia superimposed We will transfuse 1 unit PRBCs due to need to restart Eliquis and in the setting of recent sepsis with end-organ damage. We do not want to overdo this since it will accelerate his need for his next dialysis session. Repeat CBC in a.m. (18) Gout: Restarted on home dose Uloric Will monitor for acute gout flare Uric acid level in a.m. (19) Hypertension: Continue to hold home amlodipine, aspirin, lisinopril, and torsemide Possibly may benefit from diuretics as his renal function improves. Will defer management of this to nephrology Continue metoprolol tartrate 12.5 mg p.o. twice daily Blood pressures stable on current medical regimen (20) Adrenal nodule: Incidentally noted 2.3 cm right adrenal nodule and also noted nodularity of the left adrenal gland on CT -Follow as outpatient (21) Asymptomatic cholelithiasis: Noted numerous gallstones on CT the abdomen/no CBD dilatation, asymptomatic -Follow clinically (22) DVT prophylaxis: SCDs. Restart Eliquis at lower dose 2.5 mg twice daily Continue GI prophylaxis with famotidine. (23) Discharge planning issues: Disposition-continued stay on PCU OT, PT DNR/DNI Subjective Patient was 1: 1 overnight due to acute delirium. Appears after he was moved from the ICU the change of scenery started his acute delirium. This progressed yesterday when his family was not around. Today he is orientated to time, place and person. Although is not aware of what is been going on the last few days. Discussed care with his and daughter at bedside. Review of Systems Review of Systems: All systems reviewed & are unremarkable except as noted in HPI & below Physical Exam Constitutional: well developed and + malnourished; no acute distress Eyes: + anicteric sclerae; pupils not irregular Neck: trachea midline Respiratory: normal respiratory effort; no respiratory distress, no labored breathing, no retractions and does not use accessory muscles Auscultation: lungs clear to auscultation bilaterally; no diminished lung sounds, no crackles, no rales, no rhonchi and no wheezes Cardiovascular: Rate/Rhythm: regular rate and + irregularly irregular Heart Sounds: + murmur (2/6 LUSB) Extremities: normal capillary refill and + pedal edema (2+ In feet, 1+ b/l equal to knees, SCDs in place) Gastrointestinal (Abdomen): Inspection/Auscultation: + hypoactive bowel sounds Percussion/Palpation: abdomen soft; abdomen nontender, no guarding and abdomen not rigid Skin: no rashes, warm and dry Neurologic: moves all extremities and awake; not confused Psychiatric: Orientation: alert and oriented x 3 Thought Process: linear/logical thought process and clear/coherent thought process Insight: + limited insight Results & Data Vital Signs (Past 12 Hours) Vital Signs Temp Pulse Pulse Pulse Resp BP BP 05/21/19 19:16 98.2 F 79 20 142/65 H 05/21/19 18:59 72 18 05/21/19 17:07 98.2 F 79 149/71 H 05/21/19 16:11 99.3 F 73 129/62 05/21/19 15:28 73 16 05/21/19 15:11 98.2 F 74 133/73 05/21/19 14:42 137/73 05/21/19 14:41 98.4 F 77 18 137/3 L 05/21/19 14:26 98.2 F 74 18 113/61 05/21/19 14:09 98.4 F 69 18 115/58 L 05/21/19 11:43 98.1 F 77 19 136/70 05/21/19 11:16 70 16 05/21/19 10:35 99.1 F 72 147/71 H Pulse Ox 05/21/19 19:16 94 05/21/19 18:59 92 05/21/19 17:07 05/21/19 16:11 05/21/19 15:28 90 05/21/19 15:11 05/21/19 14:42 05/21/19 14:41 95 05/21/19 14:26 96 05/21/19 14:09 93 05/21/19 11:43 92 05/21/19 11:16 100 05/21/19 10:35 96 PG Care Time/CCT Total # of Minutes Spent Total Time Spent with Patient: Total time spent is greater than 50% in coordination of care (as documented) at patient's floor/unit and/or counseling patient: (1) Diastolic heart failure Heart failure chronicity: chronic Qualified Code(s): I50.32 - Chronic diastolic (congestive) heart failure (2) Atrial fibrillation Atrial fibrillation type: paroxysmal Qualified Code(s): I48.0 - Paroxysmal atrial fibrillation (3) Type 2 diabetes mellitus Diabetes mellitus equipment operator intermodal yard insulin use: without equipment operator intermodal yard use Diabetes mellitus complication status: with kidney complications Diabetes mellitus complication detail: with chronic kidney disease Chronic kidney disease stage: stage 3 (moderate) Qualified Code(s): E11.22 - Type 2 diabetes mellitus with diabetic chronic kidney disease; N18.3 - Chronic kidney disease, stage 3 (moderate) (4) Anemia Anemia type: unspecified type Qualified Code(s): D64.9 - Anemia, unspecified (5) Gout Gout site: unspecified site Gout etiology: unspecified cause Chronicity: chronic Presence of tophus: without tophus Qualified Code(s): M1A.9XX0 - Chronic gout, unspecified, without tophus (tophi) (6) Hypertension Hypertension type: essential hypertension Qualified Code(s): I10 - Essential (primary) hypertension
[2019-05-22] MEDS: ALBUT/IPRATROP 3MG/0.5MG NEB 3 ML VIAL NEB SCH (07:03)
[2019-05-22 08:06] LABS: Albumin Level 1.7 gm/dl (3.4-5.0); BUN Creatinine Ratio 15.2 (10-20); Calcium 8.1 mg/dl (8.5-10.1); Creatinine Clr Calc Pharmacy 21.1 ml/min; Eosinophils # (auto) 0.18 K/uL (0-0.5); Eosinophils % (auto) 1.2 %; Est GFR (African American) 16.9; Est GFR (Non-African American) 14.6; Hematocrit (blood only) 24.8 % (42-52); Hemoglobin 8.5 g/dL (14.0-18.0); Immature Granulocytes % (auto) 0.7 %; Lymphocytes # (auto) 1.74 K/uL (1.2-3.4); Lymphocytes % (auto) 12.1 %; Mean Corpuscular Hgb Conc 34.3 g/dL (32-36); Mean Corpuscular Volume 87.6 fL (80-100); Monocytes # (auto) 1.09 K/uL (0.11-0.59); Monocytes % (auto) 7.6 %; Neutrophils % (auto) 78.4 %; Phosphorus 4.2 mg/dl (2.5-4.9); Platelet Count 206 K/uL (130-400); Potassium 3.6 mmol/L (3.5-5.1); Red Blood Count 2.83 M/uL (4.7-6.1); Uric Acid 2.9 mg/dl (2.6-7.2); White Blood Count 14.41 K/uL (4.8-10.8)
--- NOTE | 2019-05-22 08:17 | Surgery Progress Note ---
Date of Service May 22, 2019 Assessment & Plan (1) Incarcerated inguinal hernia: POD#8 left inguinal hernia repair and small bowel resection WBC:14.4 Surgical incisions appears c/d/i without signs of infection. RN documented small "smear" this AM advance to low fiber diet as tolerated Supervising Physician Co-Signing Physician Notes patient seen and examined, agree with above. s/p bowel resection and chris ulated inguinal hernia repair, tolerating fulls, had 2 smear bm's. abd soft, nd, nt. incision with leslie, some echymossis. advance to low fiber diet as tolerated. Subjective Patient states he has whole body soreness, especially in his back. He denies any pain at his surgical incision. He says he is passing flatus and had a BM yesterday, however patient is a poor historian and is unsure of what has happened during this admission and didn't know he had surgery. Says he is tolerating full liquids, but they are not very appetizing to him. Physical Exam Physical Exam: awake/alert/sitting up eating breakfast Gastrointestinal (Abdomen): Inspection/Auscultation: + abdomen distended (mild) and + abdominal surgical incision (c/d/i with surgical leslie, some ecchymosis. ) Percussion/Palpation: abdomen nontender (non tender damaso surgical incision) Results & Data Vital Signs (Past 12 Hours) Vital Signs Temp Pulse Pulse Resp BP Pulse Ox 05/22/19 08:04 36.9 C 77 18 126/65 91 05/22/19 07:04 73 16 90 05/22/19 03:58 37.2 C 69 18 133/65 91 05/22/19 00:00 65 05/21/19 23:14 36.3 C L 72 20 153/70 H 91 05/21/19 21:56 37.4 C PG Care Time/CCT Total # of Minutes Spent Total Time Spent with Patient: Total time spent is greater than 50% in coordination of care (as documented) at patient's floor/unit and/or counseling patient:
[2019-05-22] MEDS: APIXABAN 2.5 MG TAB PO SCH ×2 (08:35→21:51)
[2019-05-22] MEDS: FEBUXOSTAT 40 MG TABLET PO SCH (08:35)
[2019-05-22] MEDS: METOPROLOL TARTRATE 25 MG TAB PO SCH ×2 (08:35→21:51)
[2019-05-22] MEDS: AMPICILLIN/SULBACTAM SOD 3,000 MG in 0.9 % SODIUM CHLORIDE 100 ML IV SCH (10:51)
--- NOTE | 2019-05-22 10:57 | Nephrology Progress Note ---
Date of Service May 22, 2019 Assessment & Plan (1) Acute kidney injury: DAVEY on CKD, in the setting of incarcerated hernia. Baseline creatinine 2.1 mg/dL. Clinical presentation consistent with ATN. CT did not demonstrate obstruction. UA with RBC/WBCs and protein in setting of Toribio catheter. Started on dialysis on 05/16/2019 for anuric acute kidney injury, hyperkalemia and metabolic acidosis. --Last dialyzed Thursday. UO only 325 cc last 24 hours. Creatinine continues to trend up in between dialysis treatments --No acute indication for HD today. Will schedule next HD for am. Limit UF to 1 L to avoid intravascular volume contraction --Will consult Vascular Surgery to convert IJ dialysis catheter to THC --Will consult social media intern to set up outpatient HD at [facility] (2) Chronic kidney disease, stage III (moderate): --Baseline Cr 2.1 (3) Incarcerated inguinal hernia: --s/p operative repair strangulated R inguinal hernia 05/14 --Remains on empiric IV Unasyn. Dosing as per pharmacy associate Subjective Mr. Haddad was seen & examined in his hospital room this morning. He was A&O x3. He voiced no new medical concerns. UO only 325 cc last 24 hours Review of Systems Constitutional: no fever and no chills Eyes: no worsening vision and no problem reported Ear, Nose, Mouth, Throat: no problem reported Respiratory: no cough and no dyspnea Cardiovascular: no chest pain, no palpitations and no edema Gastrointestinal: no abdominal pain, no nausea, no vomiting and no diarrhea/loose stools Genitourinary: no dysuria, no urinary hesitancy and no hematuria Musculoskeletal: no back pain Integumentary: no rash Neurologic: no falls, no dizziness and no confusion Physical Exam Constitutional: + frail appearing; not in distress Eyes: PERRL, conjunctivae normal, anicteric sclerae ENMT: external ear and nose normal, oropharynx normal Neck: trachea midline, no thyromegaly Respiratory: normal respiratory effort, lungs clear to auscultation Cardiovascular: RRR, no murmur, no edema Gastrointestinal (Abdomen): normal bowel sounds, soft, nontender, no hepatosplenomegaly Musculoskeletal: Extremities: no cyanosis Skin: no rashes, warm and dry Neurologic: awake; not confused Results & Data Vital Signs (Past 12 Hours) Vital Signs Temp Pulse Pulse Resp BP Pulse Ox 05/22/19 08:04 36.9 C 77 18 126/65 91 05/22/19 07:04 73 16 90 05/22/19 03:58 37.2 C 69 18 133/65 91 05/22/19 00:00 65 05/21/19 23:14 36.3 C L 72 20 153/70 H 91 Laboratory Results Laboratory Tests 05/22/19 05/22/19 07:10 07:10 WBC 14.41 H Hgb 8.5 L Hct 24.8 L Plt Count 206 D Sodium 135 L Potassium 3.6 Chloride 99 Carbon Dioxide 26 BUN 57 H Creatinine 3.76 H D PG Care Time/CCT Total # of Minutes Spent Total Time Spent with Patient: Total time spent is greater than 50% in coordination of care (as documented) at patient's floor/unit and/or counseling patient:
[2019-05-22] MEDS: FAMOTIDINE 20 MG in SYRINGE 3 ML IV SCH (11:13)
--- NOTE | 2019-05-22 18:05 | Hospitalist Progress Note ---
Date of Service May 22, 2019 Assessment & Plan (1) SBO (small bowel obstruction): Secondary to strangulated right inguinal hernia. POD #8 s/p reduction of incarcerated right inguinal hernia, small bowel resection (necrotic small bowel within the hernia sac) BM today (he also reported BM yesterday) NG tube removed on 05/20 Continue full liquid diet Appreciate ongoing surgery management (2) Strangulated inguinal hernia: as above, status post surgical repair -Surgery following -Dyllan in place in right lower abdomen/inguinal region (3) Acute respiratory distress syndrome (ARDS): Now resolved (4) Acute respiratory failure with hypoxia: Now resolved. Patient on room air. (5) Gram-negative bacteremia: Repeat blood cultures negative to date Pansensitive Citrobacter koseri blood culture positive. Suspected from ischemic bowel in strangulated hernia. Once his bowels are definitively working we will switch to p.o. Augmentin for total of 14 days of antibiotics -last date of treatment would be 05/31/2019. For now waiting for ileus to resolve we will continue on IV Unasyn (6) Severe sepsis with septic shock: Now resolved with renal failure requiring hemodialysis With respiratory failure requiring intubation With hypotension requiring vasopressors (7) Acute renal failure due to tubular necrosis: No hydronephrosis on admission. Presentation consistent with ATN secondary to severe sepsis. Appreciate nephrology ongoing management with ongoing diuresis I&Os. Discussed with Dr Carney and plan for vascular surgery consult for placement of dialysis catheter. Will need to stop eliquis prior to this. (8) Delirium: Delirium on the background of recent sepsis Appears improved Continue Zyprexa to 5 mg p.o. nightly as needed agitation Delirium prevention strategies-good sleep-wake cycles, keeping blinds open during the daytime, redirection, supportive care, avoidance of opioids and benzodiazepines as well as antihistamines. (9) Diastolic heart failure: Fluid overload in setting of renal failure. Fluid management with hemodialysis. (10) NPH (normal pressure hydrocephalus): Suspected history of this. Missed diagnostic lumbar puncture due to current admission. - will need to delay further work-up for this until after recovery (11) Stage 3 chronic kidney disease: With acute kidney injury secondary to ATN. See treatment above. Unknown new baseline and whether he will be able to get off dialysis at this time. (12) Atrial fibrillation: A. fib/flutter. Chronic Rates controlled on metoprolol. Restarted Eliquis at lower dose 2.5 mg twice daily (13) PAD (peripheral artery disease): Has known LE PAD - LT SFA, tibial disease as per cardiology notes Aspirin and statin are on hold with bowel ileus (14) Type 2 diabetes mellitus: HbA1c 5.6 in February suggests no longer needs outpatient glipizide. Likely can be d/c on discharge. Effectively no longer has this diagnosis based on current blood glucose levels and prior HbA1c. (15) Obstructive sleep apnea: Is considered mild and he is not on CPAP at home (16) Thrombocytopenia: Now resolved. In setting of sepsis with negative HIT labs (17) Anemia: Anemia of chronic kidney disease with acute blood loss anemia superimposed s/p 1 unit PRBCs 05/21. Appears stable today without significantly worse fluid overload. CBC daily. (18) Gout: Urice acid 2.7. Dialysis will deal with this for now but may need restarted on Uloric if he comes off dialysis. (19) Hypertension: Continue metoprolol tartrate 12.5 mg p.o. twice daily Blood pressures stable on current medical regimen Will let run a little higher today so more fluid can be taken off at dialysis planned tomorrow. (20) Adrenal nodule: Incidentally noted 2.3 cm right adrenal nodule and also noted nodularity of the left adrenal gland on CT -Follow as outpatient (21) Asymptomatic cholelithiasis: Noted numerous gallstones on CT the abdomen/no CBD dilatation, asymptomatic -Follow clinically (22) DVT prophylaxis: SCDs. Continue lower dose Eliquis 2.5 mg twice daily. If ongoing need for dialysis and stable Hgb this could be increased back to 5mg BID. Continue GI prophylaxis with famotidine, recurrence of belching when this was discontinued. (23) Discharge planning issues: Disposition-continued stay on PCU. Suspected can be stepped down tomorrow if stable overnight. OT, PT DNR/DNI Subjective Patient comfortable resting in bed. No acute events overnight. No Zyprexa given. No longer on 1:1 care. No current concerns at this time. Reports having a BM this morning (recorded as smear). Feels his appetite is increasing. No abdominal pain. No nausea or vomiting. Review of Systems Review of Systems: All systems reviewed & are unremarkable except as noted in HPI & below Physical Exam Constitutional: well developed and + malnourished; no acute distress Eyes: + anicteric sclerae; pupils not irregular Neck: trachea midline Respiratory: normal respiratory effort; no respiratory distress, no labored breathing, no retractions and does not use accessory muscles Auscultation: lungs clear to auscultation bilaterally; no diminished lung sounds, no crackles, no rales, no rhonchi and no wheezes Cardiovascular: Rate/Rhythm: regular rate and + irregularly irregular Heart Sounds: + murmur (2/6 LUSB) Extremities: normal capillary refill and + pedal edema (2+ In feet, 1+ b/l equal to knees, SCDs in place) Gastrointestinal (Abdomen): Inspection/Auscultation: + hypoactive bowel sounds Percussion/Palpation: abdomen soft; abdomen nontender, no guarding and abdomen not rigid Skin: no rashes, warm and dry Neurologic: moves all extremities and awake; not confused Psychiatric: A+Ox3, euthymic affect Thought Process: linear/logical thought process and clear/coherent thought process Insight: + fair insight Results & Data Vital Signs (Past 12 Hours) Vital Signs Temp Pulse Pulse Resp BP Pulse Ox 05/22/19 16:00 97 H 05/22/19 15:07 98.6 F 74 16 159/73 H 92 05/22/19 11:58 98.8 F 74 18 148/65 H 94 05/22/19 08:04 98.4 F 77 18 126/65 91 05/22/19 07:04 73 16 90 PG Care Time/CCT Total # of Minutes Spent Total Time Spent with Patient: Total time spent is greater than 50% in coordination of care (as documented) at patient's floor/unit and/or counseling patient: (1) Gout Chronicity: chronic Gout etiology: unspecified cause Gout site: unspecified site Presence of tophus: without tophus Qualified Code(s): M1A.9XX0 - Chronic gout, unspecified, without tophus (tophi) (2) Type 2 diabetes mellitus Chronic kidney disease stage: stage 3 (moderate) Diabetes mellitus complication detail: with chronic kidney disease Diabetes mellitus complication status: with kidney complications Diabetes mellitus jail insulin use: without jail use Qualified Code(s): E11.22 - Type 2 diabetes mellitus with diabetic chronic kidney disease; N18.3 - Chronic kidney disease, stage 3 (moderate) (3) Anemia Anemia type: unspecified type Qualified Code(s): D64.9 - Anemia, unspecified (4) Atrial fibrillation Atrial fibrillation type: paroxysmal Qualified Code(s): I48.0 - Paroxysmal atrial fibrillation (5) Diastolic heart failure Heart failure chronicity: chronic Qualified Code(s): I50.32 - Chronic diastolic (congestive) heart failure (6) Hypertension Hypertension type: essential hypertension Qualified Code(s): I10 - Essential (primary) hypertension
[2019-05-22] MEDS: FLUVOXAMINE MALEATE 50 MG TAB PO SCH (21:51)
[2019-05-22] MEDS: GABAPENTIN 100 MG CAP PO SCH (21:52)
[2019-05-23 06:46] LABS: Hematocrit (blood only) 24.9 % (42-52); Hemoglobin 8.5 g/dL (14.0-18.0); Mean Corpuscular Hemoglobin 29.8 pg (25-34); Mean Corpuscular Hgb Conc 34.1 g/dL (32-36); Mean Corpuscular Volume 87.4 fL (80-100); Mean Platelet Volume 9.5 fL (7.4-10.4); Platelet Count 238 K/uL (130-400); RDW Coefficient of Variation 14.2 % (11.5-14.5); RDW Standard Deviation 45.7 fL (36.4-46.3); Red Blood Count 2.85 M/uL (4.7-6.1); White Blood Count 14.17 K/uL (4.8-10.8)
[2019-05-23] MEDS ORDERED: EPOETIN ALFA 10,000 UNITS/ML VIAL IV SCH (07:00)
[2019-05-23] MEDS ORDERED: SODIUM CHLORIDE 0.9% 1000ML 1,000 ML IV PRN (07:00)
[2019-05-23 07:22] LABS: Albumin Level 1.7 gm/dl (3.4-5.0); BUN Creatinine Ratio 14.5 (10-20); Calcium 7.9 mg/dl (8.5-10.1); Creatinine Clr Calc Pharmacy 19.1 ml/min; Est GFR (African American) 14.9; Est GFR (Non-African American) 12.9; Potassium 3.7 mmol/L (3.5-5.1)
[2019-05-23 07:23] LABS: Phosphorus 4.5 mg/dl (2.5-4.9)
--- NOTE | 2019-05-23 07:25 | Surgery Progress Note ---
Date of Service May 23, 2019 Assessment & Plan (1) Strangulated inguinal hernia: good progress eating well ARF is issue with AV fistula today activity increase as tolerated, no lifting greater than 20lbs Present on Admission?: Yes Subjective Alert NPO for AV fistula today was taking po fairly well no complaints of groin or abdominal pain Review of Systems Constitutional: no fever and no chills Respiratory: no dyspnea Cardiovascular: no chest pain Gastrointestinal: no abdominal pain, no nausea and no vomiting Genitourinary: no dysuria Physical Exam Constitutional: well developed and well nourished Neck: trachea midline Respiratory: normal respiratory effort, lungs clear to auscultation Cardiovascular: RRR, no murmur, no edema Gastrointestinal (Abdomen): normal bowel sounds, soft, nontender, no hepatosp lenomegaly Musculoskeletal: Head/Neck/Chest: normocephalic and head atraumatic Skin: no rashes, warm and dry Results & Data Vital Signs (Past 12 Hours) Vital Signs Temp Pulse Resp BP Pulse Ox 05/23/19 03:06 36.6 C 68 19 145/69 H 95 05/22/19 23:46 37.1 C 71 16 146/71 H 91 05/22/19 19:30 36.6 C 74 20 146/68 H 91
[2019-05-23] MEDS: APIXABAN 2.5 MG TAB PO SCH (07:49)
[2019-05-23] MEDS: METOPROLOL TARTRATE 25 MG TAB PO SCH ×2 (07:50→20:28)
[2019-05-23] MEDS: FAMOTIDINE 20 MG in SYRINGE 3 ML IV SCH (07:57)
--- NOTE | 2019-05-23 09:37 | Nephrology Progress Note ---
Date of Service May 23, 2019 Assessment & Plan (1) Acute kidney injury: DAVEY on CKD, in the setting of incarcerated hernia. Baseline creatinine 2.1 mg/dL. Clinical presentation consistent with ATN. CT did not demonstrate obstruction. UA with RBC/WBCs and protein in setting of Toribio catheter. Started on dialysis on 05/16/2019 for anuric acute kidney injury, hyperkalemia and metabolic acidosis. --Last dialyzed Thursday. Creatinine continues to trend up in between dialysis treatments --HD today for clearance and additional 1 L UF. Orders in EMR reviewed with HD nurse. --Vascular Surgery to convert IJ dialysis catheter to THC tomorrow --director volunteer services to set up outpatient HD at [facility] -- [place] [address] units with HD today for anemia (2) Chronic kidney disease, stage III (moderate): --Baseline Cr 2.1 (3) Incarcerated inguinal hernia: --s/p operative repair strangulated R inguinal hernia 05/14 --Remains on empiric IV Unasyn. Dosing as per healthcare risk control consultant Subjective Patient comfortable resting in bed. No acute events overnight. Oriented x 3 but remains slightly confused. No fever or chills. Breathing comfortably. Patient was seen at the start of HD. Unfortunately IO not working well and requiring replacement. Plan of care discussed with vascular surgery. TDC planned for tomorrow. Review of Systems Review of Systems: All systems reviewed & are unremarkable except as noted in HPI & below Physical Exam Constitutional: no acute distress and not edematous Eyes: + anicteric sclerae and PERRL ENMT: Mouth: no oral mucosal abnormality and oral mucous membranes not dry Neck: normal visual inspection and trachea midline Respiratory: normal respiratory effort Auscultation: lungs clear to auscultation bilaterally Cardiovascular: Heart Sounds: normal S1 and normal S2 Extremities: normal capillary refill; no edema Gastrointestinal (Abdomen): Percussion/Palpation: abdomen soft; abdomen nontender Musculoskeletal: Extremities: no cyanosis and no clubbing Skin: normal turgor; no rashes Results & Data Vital Signs (Past 12 Hours) Vital Signs Temp Pulse Pulse Resp BP BP Pulse Ox 05/23/19 07:34 36.4 C L 67 18 152/69 H 96 05/23/19 03:06 36.6 C 68 19 145/69 H 95 05/22/19 23:46 37.1 C 71 16 146/71 H 91 Laboratory Results Laboratory Results - last 24 hr 05/23/19 05/23/19 06:35 06:35 WBC 14.17 H RBC 2.85 L Hgb 8.5 L Hct 24.9 L MCV 87.4 MCH 29.8 MCHC 34.1 RDW Std Deviation 45.7 RDW Coeff of Ekta 14.2 Plt Count 238 MPV 9.5 Sodium 133 L Potassium 3.7 Chloride 98 Carbon Dioxide 27 Anion Gap 8.0 BUN 60 H Creatinine 4.16 H D Est Cr Clr Drug Dosing 19.1 Est GFR ( Amer) 14.9 Est GFR (Non-Af Amer) 12.9 BUN/Creatinine Ratio 14.5 Glucose 149 H Calcium 7.9 L Phosphorus 4.5 Albumin 1.7 L PG Care Time/CCT Total # of Minutes Spent Total Time Spent with Patient: Total time spent is greater than 50% in coordination of care (as documented) at patient's floor/unit and/or counseling patient:
--- NOTE | 2019-05-23 10:12 | Consultation ---
Date of Consultation May 23, 2019 Assessment & Plan (1) Acute renal failure due to tubular necrosis: Pt scheduled for permcath insertion tomorrow by Dr Emmanuel. Pt agreeable. Present on Admission?: No History of Present Illness Reason for Consultation: ESRD, need access for HD Attending Physician: Karen Dumas MD History of Present Illness 78 yo m with multiple medical problems including CKD and a fib, admitted with incarcerated hernia and underwent surgery, now with worsening renal fxn, seen in consultation today for placement of permcath for HD. Pt started HD via temporary catheter last week. Pt admits occasional nausea. Denies JONES,fever, chills, cehst pain, vomiting recently, abd pain, rest pain, claudication, other complaints. Allergies Allergy/AdvReac Type Severity Reaction Status Date / Time latex Allergy Unknown LOCAL SKIN Verified 05/14/19 17:23 IRRITATION lisinopril Allergy Unknown hyperkalemi Verified 05/14/19 17:23 a sulfamethoxazole AdvReac increases Verified 05/14/19 17:23 [From Bactrim] potassium trimethoprim [From Bactrim] AdvReac increases Verified 05/14/19 17:23 potassium Home Medications Home Medications Medication Instructions Recorded Confirmed Type ascorbic acid (vitamin C) 1,000 mg PO QAM 10/08/18 05/14/19 History garlic 1,000 mg PO QAM 10/08/18 05/14/19 History multivitamin 1 tab PO QAM 10/08/18 05/14/19 History pravastatin 10 mg PO QAM 10/08/18 05/14/19 History febuxostat [Uloric] 40 mg PO QAM 12/14/18 05/14/19 History cholecalciferol (vitamin D3) 25 1,000 units PO QAM 01/17/19 05/14/19 History mcg (1,000 unit) capsule fluvoxamine 100 mg PO HS 03/03/19 05/14/19 History apixaban 5 mg tablet 5 mg PO BID #180 tab 04/06/19 05/14/19 Rx ipratropium bromide 42 mcg (0.06 2 spray INTRANASAL BID #15 ml 04/07/19 05/14/19 Rx %) nasal spray aspirin 81 mg tablet,delayed 81 mg PO QAM 04/27/19 05/14/19 History release metoprolol tartrate 25 mg tablet 12.5 mg PO AMPM tab 04/27/19 05/14/19 History cefuroxime axetil 500 mg tablet 500 mg PO BID #20 tab 05/13/19 05/14/19 Rx amlodipine 5 mg PO QAM 05/14/19 05/14/19 History famotidine 40 mg PO QAM 05/14/19 05/14/19 History gabapentin See Rx Instructions mg PO 05/14/19 05/14/19 History DIRECTED glipizide 5 mg PO QAM 05/14/19 05/14/19 History lisinopril 5 mg PO QAM 05/14/19 05/14/19 History omega-3 fatty acids-fish oil [Fish 2,400 cap PO QAM 05/14/19 05/14/19 History Oil] plant stanol amarjit [Cholest Off] 0 mg PO BID 05/14/19 05/14/19 History torsemide 10 mg PO QAM 05/14/19 05/14/19 History vit C,S-Ai-ndszg-lutein-zeaxan 1 tab PO BID 05/14/19 05/14/19 History [PreserVision AREDS-2] Patient History Medical History Adrenal nodule Afib Arthritis Asymptomatic cholelithiasis Cataracts, both eyes RIGHT EYE BEING DONE FIRST Chronic kidney disease, stage III (moderate) Coronary arteriosclerosis Diabetes Diastolic dysfunction GERD (gastroesophageal reflux disease) High cholesterol History of stress test 2009 [place] D/T PASSED OUT WENT TO [facility]. 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 Required: No Beliefs That Will Affect Care: None Current Living Situation: Spouse Feels Safe at Home: Yes Smoking Status: Former smoker Tobacco Type: cigarettes ; Second Hand Exposure: No ; Hx Alcohol Use: No Hx Substance Use: No Review of Systems Review of Systems: All systems reviewed & are unremarkable except as noted in HPI & below Physical Exam Constitutional: WD/WN, vitals as above Eyes: PERRL, conjunctivae normal, anicteric sclerae ENMT: external ear and nose normal, oropharynx normal Ears: no hearing impairment Neck: trachea midline Respiratory: normal respiratory effort, lungs clear to auscultation Cardiovascular: Rate/Rhythm: + irregularly irregular Vessels: femoral pulses present, posterior tibial pulses present, dorsalis pedis pulses present, brachial pulses present and radial pulses present; + abnormal peripheral pulses Extremities: normal capillary refill, + edema and + vascular access device (R IJ temp catheter) Gastrointestinal (Abdomen): Inspection/Auscultation: abdomen normal to inspection and normal bowel sounds; abdomen not distended Skin: no rashes, warm and dry Neurologic: moves all extremities; no focal motor deficits and not confused Psychiatric: A+Ox3, euthymic affect Results & Data Vital Signs (Past 12 Hours) Vital Signs Temp Pulse Pulse Pulse Resp BP BP 05/23/19 09:44 63 136/67 05/23/19 09:22 65 143/71 H 05/23/19 09:15 36.8 C 65 05/23/19 07:34 36.4 C L 67 18 152/69 H 05/23/19 03:06 36.6 C 68 19 05/22/19 23:46 37.1 C 71 16 BP Pulse Ox 05/23/19 09:44 05/23/19 09:22 05/23/19 09:15 05/23/19 07:34 96 05/23/19 03:06 145/69 H 95 05/22/19 23:46 146/71 H 91
[2019-05-23] MEDS: AMPICILLIN/SULBACTAM SOD 3,000 MG in 0.9 % SODIUM CHLORIDE 100 ML IV SCH (13:42)
--- NOTE | 2019-05-23 18:31 | Hospitalist Progress Note ---
Date of Service May 23, 2019 Assessment & Plan (1) SBO (small bowel obstruction): Secondary to strangulated right inguinal hernia. POD #9 s/p reduction of incarcerated right inguinal hernia, small bowel resection (necrotic small bowel within the hernia sac) BM on 05/21 and 05/22 NG tube removed on 05/20 Is now advanced to low fiber diet Appreciate ongoing surgery management -Needs ambulation/PT (2) Strangulated inguinal hernia: as above, status post surgical repair -Surgery following -[place] in place in right lower abdomen/inguinal region (3) Acute respiratory distress syndrome (ARDS): Now resolved (4) Acute respiratory failure with hypoxia: Now resolved. Secondary to aspiration pneumonitis, ARDS requiring intubation and mech ventilation, and renal failure Patient now on room air and much improved (5) Gram-negative bacteremia: Repeat blood cultures negative to date Pansensitive Citrobacter koseri blood culture positive. Suspected from ischemic bowel in strangulated hernia. Once his bowels are definitively working we will switch to p.o. Augmentin for total of 14 days of antibiotics -last date of treatment would be 05/31/2019. For now waiting for ileus to resolve we will continue on IV Unasyn (6) Severe sepsis with septic shock: Now resolved with renal failure requiring hemodialysis With respiratory failure requiring intubation With hypotension requiring vasopressors (7) Acute renal failure due to tubular necrosis: No hydronephrosis on admission. Presentation consistent with ATN secondary to severe sepsis. Appreciate nephrology ongoing management with ongoing diuresis I&Os. -now with plan for vascular surgery placement of tunneled dialysis catheter on Thursday -quis on hold -had HD again on 05/23 -appreciate Nephrology management (8) Delirium: Delirium on the background of recent sepsis and renal failure Improving each day Continue Zyprexa to 5 mg p.o. nightly as needed agitation Delirium prevention strategies-good sleep-wake cycles, keeping blinds open during the daytime, redirection, supportive care, avoidance of opioids and benzodiazepines as well as antihistamines. (9) Diastolic heart failure: Fluid overload in setting of renal failure. Fluid management with hemodialysis. (10) NPH (normal pressure hydrocephalus): Suspected history of this. Missed diagnostic lumbar puncture due to current admission. - will need to delay further work-up for this until after recovery (11) Stage 3 chronic kidney disease: With acute kidney injury secondary to ATN. See treatment above. Now will be ESRD and have permanent hemodialysis as there has been no renal recovery (12) Atrial fibrillation: A. fib/flutter. Chronic Rates controlled on metoprolol. Restarted Eliquis at lower dose 2.5 mg twice daily, however now on hold for permcath placement (13) PAD (peripheral artery disease): Has known LE PAD - LT SFA, tibial disease as per cardiology notes Aspirin and statin are on hold with previous bowel ileus (14) Type 2 diabetes mellitus: HbA1c 5.6 in February suggests no longer needs outpatient glipizide. Likely can be d/c on discharge. Effectively no longer has this diagnosis based on current blood glucose levels and prior HbA1c. (15) Obstructive sleep apnea: Is considered mild and he is not on CPAP at home (16) Thrombocytopenia: Now resolved. In setting of sepsis with negative HIT labs (17) Anemia: Anemia of chronic kidney disease with acute blood loss anemia superimposed s/p 1 unit PRBCs 05/21. Hgb stable today at 8.5 CBC daily (18) Gout: Uric acid 2.7. Dialysis will deal with this for now but may need restarted on Uloric if he comes off dialysis. (19) Hypertension: Continue metoprolol tartrate 12.5 mg p.o. twice daily Blood pressures stable to slightly elevated on current medical regimen (20) Adrenal nodule: Incidentally noted 2.3 cm right adrenal nodule and also noted nodularity of the left adrenal gland on CT -Follow as outpatient (21) Asymptomatic cholelithiasis: Noted numerous gallstones on CT the abdomen/no CBD dilatation, as ymptomatic -Follow clinically (22) DVT prophylaxis: SCDs. Eliquis on hold. Continue GI prophylaxis with famotidine, recurrence of belching when this was di scontinued. (23) Discharge planning issues: Disposition-continued stay on PCU. Will likely downgrade to medical floor after tunneled cath placement tomorrow if remains stable PT eval still pending-still profoundly weak, required 2 person max assist just to sit up in bed on OT eval 3 days ago Needs referral to rehab DNR/DNI Subjective Feeling well, is tired of being in bed all day. Has not been out of bed in days as per RN. PT/OT attempts have been made but he is often at HD or getting transfusion, etc. He denies CP or SOB, denies abd pain. Is eating some regular food today. having small BM. Tele with Afib, rates 60-70s Review of Systems Review of Systems: All systems reviewed & are unremarkable except as noted in HPI & below Physical Exam Constitutional: WD/WN, vitals as above Eyes: + anicteric sclerae Neck: trachea midline, no thyromegaly Respiratory: normal respiratory effort, lungs clear to auscultation Cardiovascular: Rate/Rhythm: regular rate and + irregularly irregular Heart Sounds: no murmur Extremities: + edema (2+ pitting edema legs bilat) and + vascular access device (Right internal jugular catheter in place) Chest (Breasts): Chest: normal inspection of chest Gastrointestinal (Abdomen): Inspection/Auscultation: normal bowel sounds; + abdomen abnormal to inspection (Right inguinal region with leslie in place with small amount of surrounding ecchymosis, no erythema or drainage) and abdomen not distended Percussion/Palpation: abdomen soft Musculoskeletal: Extremities: extremities normal to inspection; no cyanosis and no clubbing Skin: no rashes, warm and dry Neurologic: moves all extremities and awake; no focal motor deficits Psychiatric: Orientation: alert, oriented to person and cooperative; + not oriented to place and + not oriented to time Eye Contact: good eye contact Affect: euthymic affect Cognition: + recent memory not intact Genitourinary: no testicular masses, no penis abnormality (with Toribio in place draining clear yellow urine) Lymphatic: no lymphedema Results & Data Vital Signs (Past 12 Hours) Vital Signs Temp Pulse Pulse Pulse Resp BP BP 05/23/19 15:47 36.5 C 71 18 169/64 H 05/23/19 13:50 36.7 C 65 05/23/19 13:00 68 148/73 H 05/23/19 12:40 70 156/71 H 05/23/19 12:20 68 156/64 H 05/23/19 12:00 66 157/65 H 05/23/19 11:40 69 149/74 H 05/23/19 11:20 69 143/70 H 05/23/19 11:12 36.8 C 69 18 05/23/19 11:00 69 147/69 H 05/23/19 10:40 67 149/68 H 05/23/19 10:20 66 146/62 H 12/02/19 10:00 64 152/71 H 05/23/19 09:44 63 136/67 05/23/19 09:22 65 143/71 H 05/23/19 09:15 36.8 C 65 05/23/19 07:34 36.4 C L 67 18 152/69 H BP Pulse Ox 05/23/19 15:47 93 05/23/19 13:50 152/71 H 05/23/19 13:00 05/23/19 12:40 05/23/19 12:20 05/23/19 12:00 05/23/19 11:40 05/23/19 11:20 05/23/19 11:12 147/69 H 94 05/23/19 11:00 05/23/19 10:40 05/23/19 10:20 05/23/19 10:00 05/23/19 09:44 05/23/19 09:22 05/23/19 09:15 05/23/19 07:34 96 Laboratory Results 05/23/19 05/23/19 Range/Units 06:35 06:35 WBC 14.17 H (4.8-10.8) K/uL RBC 2.85 L (4.7-6.1) M/uL Hgb 8.5 L (14.0-18.0) g/dL Hct 24.9 L (42-52) % MCV 87.4 (80-100) fL MCH 29.8 (25-34) pg MCHC 34.1 (32-36) g/dL RDW Std Deviation 45.7 (36.4-46.3) fL RDW Coeff of Ekta 14.2 (11.5-14.5) % Plt Count 238 (130-400) K/uL MPV 9.5 (7.4-10.4) fL Sodium 133 L (136-145) mmol/L Potassium 3.7 (3.5-5.1) mmol/L Chloride 98 (98-107) mmol/L Carbon Dioxide 27 (21-32) mmol/L Anion Gap 8.0 (3-11) BUN 60 H (7-18) mg/dl Creatinine 4.16 H D (0.6-1.4) mg/dl Est Cr Clr Drug Dosing 19.1 ml/min Est GFR ( Amer) 14.9 Est GFR (Non-Af Amer) 12.9 BUN/Creatinine Ratio 14.5 (10-20) Glucose 149 H (70-99) mg/dl Calcium 7.9 L (8.5-10.1) mg/dl Phosphorus 4.5 (2.5-4.9) mg/dl Albumin 1.7 L (3.4-5.0) gm/dl PG Care Time/CCT Total # of Minutes Spent Total Time Spent with Patient: Total time spent is greater than 50% in coordination of care (as documented) at patient's floor/unit and/or counseling patient: (1) Diastolic heart failure Heart failure chronicity: chronic Qualified Code(s): I50.32 - Chronic diastolic (congestive) heart failure (2) Atrial fibrillation Atrial fibrillation type: paroxysmal Qualified Code(s): I48.0 - Paroxysmal atrial fibrillation (3) Type 2 diabetes mellitus Diabetes mellitus rn long term care insulin use: without chcf use Diabetes mellitus complication status: with kidney complications Diabetes mellitus complication detail: with chronic kidney disease Chronic kidney disease stage: stage 3 (moderate) Qualified Code(s): E11.22 - Type 2 diabetes mellitus with diabetic chronic kidney disease; N18.3 - Chronic kidney disease, stage 3 (moderate) (4) Anemia Anemia type: unspecified type Qualified Code(s): D64.9 - Anemia, unspecified (5) Gout Gout site: unspecified site Gout etiology: unspecified cause Chronicity: chronic Presence of tophus: without tophus Qualified Code(s): M1A.9XX0 - Chronic gout, unspecified, without tophus (tophi) (6) Hypertension Hypertension type: essential hypertension Qualified Code(s): I10 - Essential (primary) hypertension
[2019-05-23] MEDS: GABAPENTIN 100 MG CAP PO SCH (20:27)
[2019-05-23] MEDS: FLUVOXAMINE MALEATE 50 MG TAB PO SCH (20:27)
[2019-05-24] MEDS ORDERED: CEFAZOLIN 2000MG 2,000 MG/15 ML SYR IV SCH (06:00)
[2019-05-24 07:10] LABS: Hematocrit (blood only) 26.4 % (42-52); Hemoglobin 8.8 g/dL (14.0-18.0); Mean Corpuscular Hemoglobin 29.7 pg (25-34); Mean Corpuscular Hgb Conc 33.3 g/dL (32-36); Mean Corpuscular Volume 89.2 fL (80-100); Mean Platelet Volume 10.2 fL (7.4-10.4); Platelet Count 301 K/uL (130-400); RDW Coefficient of Variation 14.5 % (11.5-14.5); RDW Standard Deviation 47.3 fL (36.4-46.3); Red Blood Count 2.96 M/uL (4.7-6.1); White Blood Count 11.37 K/uL (4.8-10.8)
--- NOTE | 2019-05-24 07:38 | History & Physical Bridge Note ---
Date of Service May 24, 2019 History & Physical Bridge Note Patient for an insertion of a permcath today. I have discussed the risks options and benefits of the procedure with the patient. The patient understands the risks options and benefits and agrees to the procedure. I have examined the patient, reviewed the History & Physical and in the interval since the performance of the History & Physical I have noted the following changes of clinical significance: no changes noted
[2019-05-24] MEDS: METOPROLOL TARTRATE 25 MG TAB PO SCH ×2 (07:54→20:38)
[2019-05-24] MEDS: FAMOTIDINE 20 MG in SYRINGE 3 ML IV SCH (07:59)
[2019-05-24 08:00] LABS: Calcium 8.1 mg/dl (8.5-10.1); Creatinine Clr Calc Pharmacy 27.4 ml/min; Est GFR (African American) 23.2; Magnesium 1.9 mg/dl (1.8-2.4); Potassium 3.7 mmol/L (3.5-5.1)
--- NOTE | 2019-05-24 09:03 | Nephrology Progress Note ---
Date of Service May 24, 2019 Assessment & Plan (1) Acute kidney injury: DAVEY on CKD, in the setting of incarcerated hernia. Baseline creatinine 2.1 mg/dL. Clinical presentation consistent with ATN. CT did not demonstrate obstruction. UA with RBC/WBCs and protein in setting of Toribio catheter. Started on dialysis on 05/16/2019 for anuric acute kidney injury, hyperkalemia and metabolic acidosis. --HD yesterday with adequate clearance. UF 1 L --BP and volume status are acceptable --Vascular Surgery to place [facility] today --government services professional to set up outpatient HD at [facility] --Epogen [id number] units provided with HD yesterday for anemia --Repeat metabolic profile tomorrow AM (2) Chronic kidney disease, stage III (moderate): --Baseline Cr 2.1 (3) Incarcerated inguinal hernia: --s/p operative repair strangulated R inguinal hernia 05/14 --Blood cultures + Pansensitive Citrobacter: now cleared --Remains on IV Unasyn. Dosing as per compounding pharmacy technician: dosing for renal failure on MWF IHD Subjective No acute events overnight. Marco A remains very confused. No fevers or chills. Tolerated HD yesterday without complications. Net UF 1 L. Appetite is good. Review of Systems Review of Systems: All systems reviewed & are unremarkable except as noted in HPI & below Physical Exam Constitutional: no acute distress and not ill appearing Eyes: + anicteric sclerae and PERRL ENMT: Mouth: no oral mucosal abnormality and oral mucous membranes not dry Neck: normal visual inspection and trachea midline Respiratory: normal respiratory effort Auscultation: lungs clear to a uscultation bilaterally Cardiovascular: Heart Sounds: normal S1 and normal S2 Extremities: normal capillary refill; no edema Gastrointestinal (Abdomen): Inspection/Auscultation: abdomen not distended Percussion/Palpation: abdomen soft; abdomen nontender Musculoskeletal: Extremities: no cyanosis and no clubbing Skin: normal turgor; no rashes Neurologic: Motor/Sensory: no tremor and no asterixis Psychiatric: Orientation: alert and cooperative Insight: + poor insight Results & Data Vital Signs (Past 12 Hours) Vital Signs Temp Pulse Pulse Pulse Resp BP Pulse Ox 05/24/19 06:54 36.7 C 67 18 170/78 H 94 05/24/19 02:57 36.6 C 58 L 20 160/74 H 92 05/24/19 00:00 69 05/23/19 23:08 37.3 C 66 20 137/67 95 Laboratory Results Laboratory Results - last 24 hr 05/24/19 05/24/19 06:32 06:32 WBC 11.37 H RBC 2.96 L Hgb 8.8 L Hct 26.4 L MCV 89.2 MCH 29.7 MCHC 33.3 RDW Std Deviation 47.3 H RDW Coeff of Ekta 14.5 Plt Count 301 MPV 10.2 Sodium 135 L Potassium 3.7 Chloride 102 Carbon Dioxide 26 Anion Gap 7.0 BUN 37 H Creatinine 2.89 H D Est Cr Clr Drug Dosing 27.4 Est GFR ( Amer) 23.2 Est GFR (Non-Af Amer) 20.0 BUN/Creatinine Ratio 13.0 Glucose 129 H Calcium 8.1 L Magnesium 1.9 PG Care Time/CCT Total # of Minutes Spent Total Time Spent with Patient: Total time spent is greater than 50% in coordination of care (as documented) at patient's floor/unit and/or counseling patient:
[2019-05-24] MEDS ORDERED: LIDOCAINE HCL 1% 20 ML VIAL ONE (09:04)
[2019-05-24] MEDS ORDERED: HEPARIN SOD (PORCINE) 5,000 UNITS/ML VIAL ONE (09:04)
[2019-05-24] MEDS ORDERED: fentaNYL citrate 100 MCG/2 ML VIAL ONE (09:19)
[2019-05-24] MEDS ORDERED: MIDAZOLAM HCL 1 MG/ML 2ML VIAL ONE (09:19)
--- NOTE | 2019-05-24 09:19 | Pre Anesthesia Assessment ---
Date of Service May 24, 2019 Pre Sedation Assessment Vital Signs Temp Pulse Pulse Pulse Resp BP BP 05/24/19 09:11 37.1 C 66 20 05/24/19 06:54 36.7 C 67 18 05/24/19 02:57 36.6 C 58 L 20 05/24/19 00:00 69 05/23/19 23:08 37.3 C 66 20 05/23/19 19:12 36.4 C L 72 18 171/71 H 05/23/19 15:47 36.5 C 71 18 169/64 H 05/23/19 13:50 36.7 C 65 05/23/19 13:00 68 148/73 H 05/23/19 12:40 70 156/71 H 05/23/19 12:20 68 156/64 H 05/23/19 12:00 66 157/65 H 05/23/19 11:40 69 149/74 H 05/23/19 11:20 69 143/70 H 05/23/19 11:12 36.8 C 69 18 05/23/19 11:00 69 147/69 H 05/23/19 10:40 67 149/68 H 05/23/19 10:20 66 146/62 H 05/23/19 10:00 64 152/71 H 05/23/19 09:44 63 136/67 05/23/19 09:22 65 143/71 H BP Pulse Ox 05/24/19 09:11 152/59 H 93 05/24/19 06:54 170/78 H 94 05/24/19 02:57 160/74 H 92 05/24/19 00:00 05/23/19 23:08 137/67 95 05/23/19 19:12 92 05/23/19 15:47 93 05/23/19 13:50 152/71 H 05/23/19 13:00 05/23/19 12:40 05/23/19 12:20 05/23/19 12:00 05/23/19 11:40 05/23/19 11:20 05/23/19 11:12 147/69 H 94 05/23/19 11:00 05/23/19 10:40 05/23/19 10:20 05/23/19 10:00 05/23/19 09:44 05/23/19 09:22 Cardiovascular RRR, no murmur, no edema Respiratory normal respiratory effort, lungs clear to auscultation Pre-Sedation Airway Assessment Smoking Status: Former smoker Hx Sleep Apnea: Yes (does not wear cpap at night) Short, Thick Neck: No Thyromental Distance: > or= 3.5 Finger Breadths Oral Cavity: + WNL Mallampati Class: II ASA: ASA3 NPO Status Date of Last Intake of Fluids: 05/23/19 Time of Last Intake of Fluids: 17:00 Date of Last Intake of Solid Food: 05/23/19 Time of Last Intake of Solid Foods: 17:00 Procedure Planning Contraindications for Sedation: none Current Medications Reviewed: Yes Notes The planned sedation has been discussed with the patient. Informed Consent was obtained. I have identified the patient, determined the appropriateness of sedation and have assessed the patient immediately prior to the procedure. All medicine(s) and interventions are by my order.
--- NOTE | 2019-05-24 09:45 | Procedure Note ---
Angiogram Post Procedure Fluoroscopy Time (minutes): 0.4 Radiation (mGy): 3 Contrast: 0 Post Operative Report Pre & Post Diagnosis Operation Date: 05/14/19 19:00 Pre-Op Diagnosis: Incarcerated right inguinal hernia, strangulated bowel Post-Op Diagnosis: Incarcerated right inguinal hernia, strangulated bowel Operation Date: 05/24/19 09:50 Pre-Op Diagnosis: Acute Kidney Injury Post-Op Diagnosis: Acute Kidney Injury Procedure Operation Date: 05/14/19 19:00 Actual Procedures s Incarcerated right inguinal hernia repair, aspiration of right groin, (Right) - Matheus Pham MD p small bowel resection - Matheus Pham MD Operation Date: 05/24/19 09:50 Actual Procedures p Perm Catheter Insertion Right Jugular Approach, Ultrasound Localization of Right Jugular Vein, Fluoroscopy for Positiong, Moderate Sedation 930-02(Right) - Alex Emmanuel MD Surgeon Alex Emmanuel MD Priming Mixture Carrier none Estimated Blood Loss 5 Findings Consistent with Post-Op Diagnosis Specimens None Anesthesia Type RN Sedation Complications none Disposition Accompanied Patient To Recovery: No Disposition: Recovery Room Indications This is a 78-year-old male who developed acute kidney injury post a strangulated hernia. He has been started on dialysis with a temporary catheter. This now needs to be switched to a permacath. I have discussed the risks options and benefits of the procedure with the patient. The patient understands the risks options and benefits and agrees to the procedure. Description of Procedure Patient was taken to the angio suite and placed in the supine position. The right side of the neck and chest wall were prepped and draped in a sterile manner. The patient was identified and a timeout performed. Local anesthesia was then administered to the appropriate areas of the neck and chest wall. Ultrasound was then used to locate the right internal jugular vein. The vein compressed easily, had no filing defects, and was patent. The vein was then punctured under direct ultrasound imaging. A guidewire was then passed centrally under fluoroscopic imaging. A stab wound was then made in the anterior chest wall and a 19 cm permcath was passed from the stab wound on the chest wall to the puncture site on the neck. The puncture site was then dilated till the 14Fr peel away sheath was inserted. The permcath was then inserted through the sheath to a central position in the distal superior vena cava. The peel away sheath was then removed. The catheter was then sutured in place using nylon sutures. The puncture was then closed using a 4-0 Vicryl subcuticular suture. Dermabond was used for a dressing on the puncture site. Both ports aspirated and flushed easily and were then packed with heparin. A sterile dressing was applied to the catheter. The patient left the operation room in satisfactory condition and tolerated the procedure well. All needle and sponge counts were correct at the end of the procedure. I attest to the content of the Intraoperative Record and any orders documented therein. Any exceptions are noted below.
--- NOTE | 2019-05-24 09:50 | Post Anesthesia Assessment ---
Date of Service May 24, 2019 Post Sedation Assessment Vital Signs Temp Pulse Pulse Pulse Resp BP BP 05/24/19 09:50 67 16 05/24/19 09:45 66 17 05/24/19 09:40 67 17 05/24/19 09:35 62 17 05/24/19 09:30 62 16 05/24/19 09:26 66 16 05/24/19 09:11 37.1 C 66 20 05/24/19 06:54 36.7 C 67 18 05/24/19 02:57 36.6 C 58 L 20 05/24/19 00:00 69 05/23/19 23:08 37.3 C 66 20 05/23/19 19:12 36.4 C L 72 18 171/71 H 05/23/19 15:47 36.5 C 71 18 169/64 H 05/23/19 13:50 36.7 C 65 05/23/19 13:00 68 148/73 H 05/23/19 12:40 70 156/71 H 05/23/19 12:20 68 156/64 H 05/23/19 12:00 66 157/65 H 05/23/19 11:40 69 149/74 H 05/23/19 11:20 69 143/70 H 05/23/19 11:12 36.8 C 69 18 05/23/19 11:00 69 147/69 H 05/23/19 10:40 67 149/68 H 05/23/19 10:20 66 146/62 H 05/23/19 10:00 64 152/71 H BP Pulse Ox 05/24/19 09:50 173/82 H 95 05/24/19 09:45 170/84 H 97 05/24/19 09:40 173/82 H 100 05/24/19 09:35 182/78 H 99 05/24/19 09:30 180/85 H 100 05/24/19 09:26 182/79 H 98 05/24/19 09:11 152/59 H 93 05/24/19 06:54 170/78 H 94 05/24/19 02:57 160/74 H 92 05/24/19 00:00 05/23/19 23:08 137/67 95 05/23/19 19:12 92 05/23/19 15:47 93 05/23/19 13:50 152/71 H 05/23/19 13:00 05/23/19 12:40 05/23/19 12:20 05/23/19 12:00 05/23/19 11:40 05/23/19 11:20 05/23/19 11:12 147/69 H 94 05/23/19 11:00 05/23/19 10:40 05/23/19 10:20 05/23/19 10:00 Recovery Score Activity: Moves 4 extremities Respiration: Deep Breath/Cough Circulation: +/-20% PreAnes Value Consciousness: Fully Awake Oxygen Saturation: > 92% On Room Air Post Anesthesia Score: 10 Discharge Sedation Level of Care: Fast Track Phase II Post Sedation Plan On clinical assessment, the patient appears to have tolerated the sedation without complications. Patient is recovering as anticipated. Patient will continue to be monitored by nursing and may be discharged when sedation discharge criteria are met per below protocol. Upon Completions of procedure up to 15 minutes continue every 5 minute vital signs and the P.A.R. score; then discharge to a Phase I or Fast Track to Phase II per the following guidelines: * Discharge Patient to appropriate Phase II area if PAR is 8 or greater or return to pre- procedure baseline. The post - procedure orders will be as directed. * If PAR score is less than 8 or not return to pre-procedure baseline then patient will follow Phase I monitoring till PAR is reached for Phase II. The Phase I may be done in procedure room or may call to secure a Phase I area. * If naloxone or flumazenil are used for reversal, hold in Phase I for continued monitoring from when last reversal dose was given for a minimum of 60 minutes or longer pending the nurse and/or physician discretion of patient condition before discharge to Phase II. Please call the Sedation Physician to re-evaluate and complete post-note for discharge to Phase II area. Do NOT discharge from procedure sedation or Phase 1 until post- sedation evaluation note is complete by procedure /sedation MD Sedation Discharge Instructions to be given to the patient at discharge to home.
[2019-05-24] MEDS: APIXABAN 2.5 MG TAB PO SCH ×2 (10:20→20:38)
[2019-05-24] MEDS: AMPICILLIN/SULBACTAM SOD 3,000 MG in 0.9 % SODIUM CHLORIDE 100 ML IV SCH (10:20)
--- NOTE | 2019-05-24 15:18 | Hospitalist Progress Note ---
Date of Service May 24, 2019 Assessment & Plan (1) SBO (small bowel obstruction): Secondary to strangulated right inguinal hernia. POD #11 s/p reduction of incarcerated right inguinal hernia, small bowel resection (necrotic small bowel within the hernia sac) BM on 05/21 and 05/22, smear / NG tube removed on 05/20 Is now advanced to low fiber diet and tolerating well Appreciate ongoing surgery management -Needs ambulation/PT (2) Strangulated inguinal hernia: as above, status post surgical repair -Surgery following -Leslie in place in right lower abdomen/inguinal region (3) Acute respiratory distress syndrome (ARDS): Now resolved (4) Acute respiratory failure with hypoxia: Now resolved. Secondary to aspiration pneumonitis, ARDS requiring intuba tion and mech ventilation, and renal failure Patient now on room air and much improved (5) Gram-negative bacteremia: Repeat blood cultures negative to date Pansensitive Citrobacter koseri blood culture positive. Suspected from ischemic bowel in strangulated hernia. Once his bowels are definitively working we will switch to p.o. Augmentin for total of 14 days of antibiotics -last date of treatment would be 05/31/2019. -we will continue on IV Unasyn for now (6) Severe sepsis with septic shock: Now resolved with renal failure requiring hemodialysis With respiratory failure requiring intubation With hypotension requiring vasopressors (7) Acute renal failure due to tubular necrosis: No hydronephrosis on admission. Presentation consistent with ATN secondary to severe sepsis. Appreciate nephrology ongoing management with ongoing diuresis I&Os. -now s/p placement of tunneled dialysis catheter 05/24 -Eliquis on hold-can restart -had HD again on 05/23 and plan for HD tomorrow -appreciate Nephrology management (8) Delirium: Delirium on the background of recent sepsis and renal failure Improving each day but continues to Continue Zyprexa to 5 mg p.o. nightly as needed for agitation Delirium prevention strategies-good sleep-wake cycles, keeping blinds open during the daytime, redirection, supportive care, avoidance of opioids and benzodiazepines as well as antihistamines. (9) Diastolic heart failure: Fluid overload in setting of renal failure. Fluid management with hemodialysis. (10) NPH (normal pressure hydrocephalus): Suspected history of this. Missed diagnostic lumbar puncture due to current admission. - will need to delay further work-up for this until after recovery (11) Stage 3 chronic kidney disease: With acute kidney injury secondary to ATN. See treatment above. Now will be ESRD and have permanent hemodialysis as there has been no renal jeannette very (12) Atrial fibrillation: A. fib/flutter. Chronic Rates controlled on metoprolol. Restarted Eliquis at lower dose 2.5 mg twice daily (13) PAD (peripheral artery disease): Has known LE PAD - LT SFA, tibial disease as per cardiology notes Aspirin and statin are on hold with previous bowel ileus (14) Type 2 diabetes mellitus: HbA1c 5.6 in February suggests no longer needs outpatient glipizide. Likely can be d/c on discharge. Effectively no longer has this diagnosis based on current blood glucose levels and prior HbA1c. (15) Obstructive sleep apnea: Is considered mild and he is not on CPAP at home (16) Thrombocytopenia: Now resolved. In setting of sepsis with negative HIT labs (17) Anemia: Anemia of chronic kidney disease with acute blood loss anemia superimposed s/p 1 unit PRBCs 05/21. Hgb stable today at 8.8 CBC daily (18) Gout: Uric acid 2.7. Dialysis will deal with this for now but may need restarted on Uloric if he comes off dialysis. (19) Hypertension: Continue metoprolol tartrate 12.5 mg p.o. twice daily Blood pressures stable to slightly elevated on current medical regimen (20) Adrenal nodule: Incidentally noted 2.3 cm right adrenal nodule and also noted nodularity of the left adrenal gland on CT -Follow as outpatient (21) Asymptomatic cholelithiasis: Noted numerous gallstones on CT the abdomen/no CBD dilatation, asympto matic -Follow clinically (22) DVT prophylaxis: SCDs. Eliquis Continue GI prophylaxis with famotidine, recurrence of belching when this was discontinued. (23) Discharge planning issues: Disposition-continued stay on PCU. Will likely downgrade to medical floor tomorrow if remains PT/OT evals-severely weak and deconditioned Needs referral to rehab-CM on board DNR/DNI Subjective Pt had his perm cath placed today. He thinks his procedure was yesterday. He just finished working with PT and could barely stand up. He complains of being very tired at this point. Denies abd pain. had a small smear of BM today. I smaking some urine. Still confused notes it worsens throughout the day.he is eating a good amount today as per Tele with Afib, rates in the 60s. Review of Systems Review of Systems: All systems reviewed & are unremarkable except as noted in HPI & below Physical Exam Constitutional: WD/WN, vitals as above Eyes: + anicteric sclerae ENMT: Ears: no hearing impairment Neck: trachea midline, no thyromegaly Respiratory: normal respiratory effort; no respiratory distress and no cough Auscultation: + crackles (Very minimal, bibasilar, improved from previous); no rhonchi and no wheezes Cardiovascular: Rate/Rhythm: regular rate and + irregularly irregular Heart Sounds: no murmur Extremities: + edema (1+ pitting edema legs bilat improved from previous) and + vascular access device (Right internal jugular catheter in place) Chest (Breasts): Chest: + abnormal inspection of chest (right tunneled IJ cath in place with dressing c/d/i) Gastrointestinal (Abdomen): Inspection/Auscultation: normal bowel sounds; + abdomen abnormal to inspection (Right inguinal region with leslie in place with small amount of surrounding ecchymosis, no erythema or drainage) and abdomen not distended Percussion/Palpation: abdomen soft Musculoskeletal: Extremities: extremities normal to inspection; no cyanosis and no clubbing Skin: no rashes, warm and dry Neurologic: moves all extremities and awake; no focal motor deficits Psychiatric: Orientation: alert, oriented to person and cooperative Eye Contact: good eye contact Affect: euthymic affect Cognition: + recent memory not intact Genitourinary: no testicular masses, no penis abnormality (with Toribio in place draining clear yellow urine) Results & Data Vital Signs (Past 12 Hours) Vital Signs Temp Pulse Pulse Pulse Pulse Resp BP 05/24/19 11:21 36.6 C 63 20 158/72 H 05/24/19 10:43 36.8 C 68 20 151/71 H 05/24/19 10:29 36.4 C L 64 22 147/66 H 05/24/19 10:00 65 22 160/63 H 05/24/19 09:52 62 05/24/19 09:50 67 16 173/82 H 05/24/19 09:45 66 17 170/84 H 05/24/19 09:40 67 17 173/82 H 05/24/19 09:35 62 17 182/78 H 05/24/19 09:30 62 16 180/85 H 05/24/19 09:26 66 16 182/79 H 05/24/19 09:11 37.1 C 66 20 152/59 H 05/24/19 08:00 67 05/24/19 06:54 36.7 C 67 18 170/78 H Pulse Ox 05/24/19 11:21 94 05/24/19 10:43 100 05/24/19 10:29 95 05/24/19 10:00 98 05/24/19 09:52 05/24/19 09:50 95 05/24/19 09:45 97 05/24/19 09:40 100 05/24/19 09:35 99 05/24/19 09:30 100 05/24/19 09:26 98 05/24/19 09:11 93 05/24/19 08:00 05/24/19 06:54 94 Laboratory Results 05/24/19 05/24/19 05/24/19 Range/Units 11:20 06:32 06:32 WBC 11.37 H (4.8-10.8) K/uL RBC 2.96 L (4.7-6.1) M/uL Hgb 8.8 L (14.0-18.0) g/dL Hct 26.4 L (42-52) % MCV 89.2 (80-100) fL MCH 29.7 (25-34) pg MCHC 33.3 (32-36) g/dL RDW Std Deviation 47.3 H (36.4-46.3) fL RDW Coeff of Ekta 14.5 (11.5-14.5) % Plt Count 301 (130-400) K/uL MPV 10.2 (7.4-10.4) fL Sodium 135 L (136-145) mmol/L Potassium 3.7 (3.5-5.1) mmol/L Chloride 102 (98-107) mmol/L Carbon Dioxide 26 (21-32) mmol/L Anion Gap 7.0 (3-11) BUN 37 H (7-18) mg/dl Creatinine 2.89 H D (0.6-1.4) mg/dl Est Cr Clr Drug Dosing 27.4 ml/min Est GFR ( Amer) 23.2 Est GFR (Non-Af Amer) 20.0 BUN/Creatinine Ratio 13.0 (10-20) Glucose 129 H (70-99) mg/dl POC Glucose 116 H (70-99) Calcium 8.1 L (8.5-10.1) mg/dl Magnesium 1.9 (1.8-2.4) mg/dl PG Care Time/CCT Total # of Minutes Spent Total Time Spent with Patient: Total time spent is greater than 50% in coordination of care (as documented) at patient's floor/unit and/or counseling patient: (1) Gout Chronicity: chronic Gout etiology: unspecified cause Gout site: unspecified site Presence of tophus: without tophus Qualified Code(s): M1A.9XX0 - Chronic gout, unspecified, without tophus (tophi) (2) Type 2 diabetes mellitus Chronic kidney disease stage: stage 3 (moderate) Diabetes mellitus complication detail: with chronic kidney disease Diabetes mellitus complication status: with kidney complications Diabetes mellitus residential insulin use: without residential use Qualified Code(s): E11.22 - Type 2 diabetes mellitus with diabetic chronic kidney disease; N18.3 - Chronic kidney disease, stage 3 (moderate) (3) Anemia Anemia type: unspecified type Qualified Code(s): D64.9 - Anemia, unspecified (4) Atrial fibrillation Atrial fibrillation type: paroxysmal Qualified Code(s): I48.0 - Paroxysmal atrial fibrillation (5) Diastolic heart failure Heart failure chronicity: chronic Qualified Code(s): I50.32 - Chronic diastolic (congestive) heart failure (6) Hypertension Hypertension type: essential hypertension Qualified Code(s): I10 - Essential (primary) hypertension
[2019-05-24] MEDS: FLUVOXAMINE MALEATE 50 MG TAB PO SCH (20:38)
[2019-05-24] MEDS: GABAPENTIN 100 MG CAP PO SCH (20:38)
[2019-05-25] MEDS ORDERED: SODIUM CHLORIDE 0.9% 1000ML 1,000 ML IV PRN (07:00)
[2019-05-25 07:27] LABS: Hematocrit (blood only) 23.2 % (42-52); Hemoglobin 7.8 g/dL (14.0-18.0); Mean Corpuscular Hemoglobin 30.1 pg (25-34); Mean Corpuscular Hgb Conc 33.6 g/dL (32-36); Mean Corpuscular Volume 89.6 fL (80-100); Mean Platelet Volume 10.6 fL (7.4-10.4); Platelet Count 320 K/uL (130-400); RDW Coefficient of Variation 14.8 % (11.5-14.5); RDW Standard Deviation 48.2 fL (36.4-46.3); Red Blood Count 2.59 M/uL (4.7-6.1); White Blood Count 9.98 K/uL (4.8-10.8)
[2019-05-25 08:05] LABS: Albumin Level 1.6 gm/dl (3.4-5.0); BUN Creatinine Ratio 14.1 (10-20); Calcium 8.1 mg/dl (8.5-10.1); Creatinine Clr Calc Pharmacy 23.8 ml/min; Est GFR (African American) 19.5; Est GFR (Non-African American) 16.8; Phosphorus 4.2 mg/dl (2.5-4.9)
[2019-05-25] MEDS: APIXABAN 2.5 MG TAB PO SCH ×2 (08:33→20:18)
[2019-05-25] MEDS: FAMOTIDINE 20 MG in SYRINGE 3 ML IV SCH (08:35)
--- NOTE | 2019-05-25 10:42 | Nephrology Progress Note ---
Date of Service May 25, 2019 Assessment & Plan (1) Acute kidney injury: DAVEY on CKD, in the setting of incarcerated hernia. Baseline creatinine 2.1 mg/dL. Clinical presentation consistent with ATN. CT did not demonstrate obstruction. UA with RBC/WBCs and protein in setting of Toribio catheter. Started on dialysis on 05/16/2019 for anuric acute kidney injury, hyperkalemia and metabolic acidosis. --HD today. Creatinine continues to rise between treatment. Orders reviewed with HD nurse. UF 1 L --BP and volume status are acceptable --THC placed yesterday --director of career services to set up outpatient HD at [facility] -- Possible DC to [facility]; we will follow for HD at [facility] if discharged to this facility --Epogen [id number] units provided with HD Thursday for anemia --Repeat metabolic profile tomorrow AM (2) Chronic kidney disease, stage III (moderate): --Baseline Cr 2.1 (3) Incarcerated inguinal hernia: --s/p operative repair strangulated R inguinal hernia 05/14 --Blood cultures + Pansensitive Citrobacter: now cleared --Remains on IV Unasyn. Dosing as per corporate director of pharmacy: dosing for renal failure on MWF IHD Subjective No acute events overnight. Marco A was seen with his and daughter at the bedside this morning. I also evaluated the patient during hemodialysis. He was less confused. TDC placed yesterday without complications. Review of Systems Review of Systems: All systems reviewed & are unremarkable except as noted in HPI & below Physical Exam Constitutional: no acute distress and not ill appearing Eyes: + anicteric sclerae and PERRL ENMT: Mouth: no oral mucosal abnormality and oral mucous membranes not dry Neck: normal visual inspection and trachea midline Respiratory: normal respiratory effort Auscultation: lungs clear to a uscultation bilaterally Cardiovascular: Heart Sounds: normal S1 and normal S2 Vessels: no JVD Extremities: normal capillary refill; no edema Gastrointestinal (Abdomen): Inspection/Auscultation: abdomen not distended Percussion/Palpation: abdomen soft; abdomen nontender Musculoskeletal: Extremities: no cyanosis and no clubbing Skin: normal turgor; no rashes Neurologic: Motor/Sensory: no tremor and no asterixis Psychiatric: Orientation: alert and cooperative Results & Data Vital Signs (Past 12 Hours) Vital Signs Temp Pulse Pulse Resp BP Pulse Ox 05/25/19 08:00 62 05/25/19 07:08 37.3 C 68 18 152/65 H 91 05/25/19 03:45 36.5 C 76 18 156/66 H 92 05/25/19 00:00 70 05/24/19 23:17 36.9 C 68 16 138/63 93 Laboratory Results Laboratory Results - last 24 hr 05/24/19 05/25/19 05/25/19 11:20 06:52 06:52 WBC 9.98 RBC 2.59 L Hgb 7.8 L Hct 23.2 L MCV 89.6 MCH 30.1 MCHC 33.6 RDW Std Deviation 48.2 H RDW Coeff of Ekta 14.8 H Plt Count 320 MPV 10.6 H Sodium 135 L Potassium Chloride 103 Carbon Dioxide 24 Anion Gap 9.0 BUN 47 H Creatinine 3.34 H D Est Cr Clr Drug Dosing 23.8 Est GFR ( Amer) 19.5 Est GFR (Non-Af Amer) 16.8 BUN/Creatinine Ratio 14.1 Glucose 150 H POC Glucose 116 H Calcium 8.1 L Phosphorus 4.2 Albumin 1.6 L 05/25/19 08:22 WBC RBC Hgb Hct MCV MCH MCHC RDW Std Deviation RDW Coeff of Ekta Plt Count MPV Sodium Potassium 4.0 Chloride Carbon Dioxide Anion Gap BUN Creatinine Est Cr Clr Drug Dosing Est GFR ( Amer) Est GFR (Non-Af Amer) BUN/Creatinine Ratio Glucose POC Glucose Calcium Phosphorus Albumin PG Care Time/CCT Total # of Minutes Spent Total Time Spent with Patient: Total time spent is greater than 50% in coordination of care (as documented) at patient's floor/unit and/or counseling patient:
--- NOTE | 2019-05-25 12:37 | Palliative Care Progress Note ---
Date of Service May 25, 2019 Assessment & Plan (1) Goals of care, counseling/discussion: -Patient has shown some improvement over the past few days and has been able to be transferred out of the ICU. -Palliative care had been following peripherally as patient was showing improvement and plan was for aggressive rehabilitation. -Patient requested to see palliative care today to discuss goals of care. -The patients , Leticia, has a few concerns. One concern is his confusion, w hich led us to talking about ICU delirium/psychosis. Reassured her that normal REM sleep cycle, reorientation, getting out of the hospital and into a routine, along with some medications can facilitate improvement of this, but set the expectation that it can take weeks. -patient does have concern about him not doing well, which is realistic. While he is tolerating HD now, I do think he may tire easily. -I explained how he either will do really well, really poorly, or stay relatively the same. I explained that he is in a quintreo area that we aren't quite sure how things will progress, but did reassure her that since he was otherwise healthy prior to this, that moving forward would be supported and if he did poorly, she always could transition away from aggressive rehabilitation. She was feeling empowered after our conversation knowing that she had the ability to stop treatment should he decline. -For now, continue with discharge plans to [facility]. -For now, palliative care will sign off. please advise if any further requests come to surface. (2) Severe sepsis with septic shock: (3) Acute respiratory failure with hypoxia: (4) Acute respiratory distress syndrome (ARDS): (5) Mitral regurgitation: Subjective Family request to see palliative care today. Pt was at HD this morning when I entered the room. I returned after HD and patient having increased confusion, bur able to be reoriented. I called and talked to the patients , Leticia who wanted to discuss goals of care and his current symptoms of confusion. See A/P for further details. Review of Systems Review of Systems: Constitutional: (-) pain HEENT: (+) confusion Resp: + cough CV: (-) chest pain, palpitations GI: (-) N/V/D Physical Exam Constitutional: + ill appearing, + frail appearing and cooperative Respiratory: normal respiratory effort and + cough Auscultation: + diminished lung sounds and + rhonchi Cardiovascular: Heart Sounds: + murmur (grade III/ LSB) Extremities: normal capillary refill and + edema Gastrointestinal (Abdomen): normal bowel sounds, soft, nontender, no hepatosplenomegaly Inspection/Auscultation: + hypoactive bowel sounds (only h eard LUQ) Skin: no rashes, warm and dry Psychiatric: Orientation: alert and oriented x 3 Insight: + limited insight Judgement: + limited judgement Lymphatic: no cervical or axillary lymphadenopathy Results & Data Vital Signs (Past 12 Hours) Vital Signs Temp Pulse Pulse Resp BP BP Pulse Ox 05/25/19 12:22 69 130/60 05/25/19 12:00 66 150/63 H 05/25/19 11:40 69 154/68 H 05/25/19 11:21 66 135/57 L 05/25/19 11:06 66 135/57 L 05/25/19 10:57 62 159/66 H 05/25/19 10:20 60 157/66 H 05/25/19 10:00 37.2 C 62 05/25/19 08:00 62 05/25/19 07:08 37.3 C 68 18 152/65 H 91 05/25/19 03:45 36.5 C 76 18 156/66 H 92 PG Care Time/CCT Total # of Minutes Spent Total Time Spent with Patient: Total time spent is greater than 50% in coordination of care (as documented) at patient's floor/unit and/or counseling patient: 45 Time Spent Midlevel Total time spent 45 minutes with > 50% of that time spent assessing the patient, discussing goals of care with the patients .
[2019-05-25] MEDS: METOPROLOL TARTRATE 25 MG TAB PO SCH ×2 (14:26→20:17)
[2019-05-25] MEDS: AMPICILLIN/SULBACTAM SOD 3,000 MG in 0.9 % SODIUM CHLORIDE 100 ML IV SCH (14:26)
--- NOTE | 2019-05-25 17:00 | Hospitalist Progress Note ---
Date of Service May 25, 2019 Assessment & Plan (1) SBO (small bowel obstruction): Secondary to strangulated right inguinal hernia. POD #12 s/p reduction of incarcerated right inguinal hernia, small bowel resection (necrotic small bowel within the hernia sac) Having BMs NG tube removed on 05/20 Is now advanced to low fiber diet and tolerating well Appreciate ongoing surgery management -Needs continued ambulation/PT -will need staple removal perhaps at 2 week yi? (2) Strangulated inguinal hernia: as above, status post surgical repair -Surgery following -[place] in place in right lower abdomen/inguinal region (3) Acute respiratory distress syndrome (ARDS): Now resolved (4) Acute respiratory failure with hypoxia: Now resolved. Secondary to aspiration pneumonitis, ARDS requiring intubation and mech ventilation, and renal failure Patient now on room air and much improved Has residual cough (5) Gram-negative bacteremia: Repeat blood cultures negative to date Pansensitive Citrobacter koseri blood culture positive. Suspected from ischemic bowel in strangulated hernia. -plan to switch to p.o. Augmentin for total of 14 days of antibiotics -last date of treatment would be 05/31/2019. -we will continue on IV Unasyn for now (6) Severe sepsis with septic shock: Now resolved with renal failure requiring hemodialysis With respiratory failure requiring intubation With hypotension requiring vasopressors (7) Acute renal failure due to tubular necrosis: No hydronephrosis on admission. Presentation consistent with ATN secondary to severe sepsis. Appreciate nephrology ongoing management with ongoing diuresis I&Os. -now s/p placement of tunneled dialysis catheter 05/24 -had HD again on 05/23 and 05/25 -appreciate Nephrology management (8) Delirium: Delirium on the background of recent sepsis and renal failure Continues to be improving each day but continues to Continue Zyprexa to 5 mg p.o. nightly as needed for agitation Delirium prevention strategies-good sleep-wake cycles, keeping blinds open during the daytime, redirection, supportive care, avoidance of opioids and benzodiazepines as well as antihistamines. (9) Diastolic heart failure: Fluid overload in setting of renal failure. Fluid management with hemodialysis. (10) NPH (normal pressure hydrocephalus): Suspected history of this. Missed diagnostic lumbar puncture due to current admission. - will need to delay further work-up for this until after recovery (11) Stage 3 chronic kidney disease: With acute kidney injury secondary to ATN. See treatment above. Now will be ESRD and have permanent hemodialysis as there has been no renal recovery (12) Atrial fibrillation: A. fib/flutter. Chronic Rates controlled on metoprolol. -continue Eliquis at lower dose 2.5 mg twice daily, however need to discuss with Pharmacy to see if should be back on his 5mg bid dosing (13) PAD (peripheral artery disease): Has known LE PAD - LT SFA, tibial disease as per cardiology notes -continue to hold Aspirin but can restart statin (14) Type 2 diabetes mellitus: HbA1c 5.6 in February suggests no longer needs outpatient glipizide. Likely can be d/c on discharge. Effectively no longer has this diagnosis based on current blood glucose levels and prior HbA1c. (15) Obstructive sleep apnea: Is considered mild and he is not on CPAP at home (16) Thrombocytopenia: Now resolved. In setting of sepsis with negative HIT labs (17) Anemia: Anemia of chronic kidney disease with acute blood loss anemia superimposed s/p 1 unit PRBCs 05/21. Hgb slight decrease today at 7.8, no obvious bleeding but had tunneled HD catheter placed CBC daily -Epogen with dialysis and consider transfusion (18) Gout: Uric acid 2.7. Dialysis will deal with this for now but may need restarted on Uloric if he comes off dialysis. (19) Hypertension: Continue metoprolol tartrate 12.5 mg p.o. twice daily Blood pressures stable to slightly elevated on current medical regimen (20) Adrenal nodule: Incidentally noted 2.3 cm right adrenal nodule and also noted nodularity of the left adrenal gland on CT -Follow as outpatient (21) Asymptomatic cholelithiasis: Noted numerous gallstones on CT the abdomen/no CBD dilatation, asymptomatic -Follow clinically (22) DVT prophylaxis: SCDs. Eliquis Continue GI prophylaxis with famotidine but convert to po, recurrence of belching when this was discontinued. (23) Discharge planning issues: Disposition- downgrade to medical floor PT/OT cristofer-severely weak and deconditioned Needs referral to rehab-CM on board and have submitted for auth to [facility] DNR/DNI Subjective Pt feeling better today. Less confused as per RN but then pt told me he was ready to get dressed and then he'll get a bath and come back and talk to me. He is still very weak, had HD today and removed 1.5L fluid. Denies SOB but has a dry cough. No abd pain, is eating well, moving bowels. Denies ches tpain Tele with Afib rates 60-70s Review of Systems Review of Systems: All systems reviewed & are unremarkable except as noted in HPI & below Physical Exam Constitutional: WD/WN, vitals as above Eyes: + anicteric sclerae ENMT: Ears: no hearing impairment Neck: trachea midline, no thyromegaly Respiratory: normal respiratory effort, lungs clear to auscultation normal respiratory effort; no respiratory distress Cardiovascular: Rate/Rhythm: regular rate and + irregularly irregular Heart Sounds: no murmur Extremities: + edema (1+ pitting edema legs bilat improved from previous) and + vascular access device (Right internal jugular tunneled catheter in place) Chest (Breasts): Chest: + abnormal inspection of chest (right tunneled IJ cath in place with dressing c/d/i) Gastrointestinal (Abdomen): normal bowel sounds, soft, nontender, no hepatosplenomegaly Inspection/Auscultation: normal bowel sounds; + abdomen abnormal to inspection (Right inguinal region with leslie in place with small amount of surrounding ecchymosis, no erythema or drainage) and abdomen not distended Percussion/Palpation: abdomen soft Musculoskeletal: Extremities: no cyanosis and no clubbing Skin: no rashes, warm and dry Neurologic: moves all extremities and awake; no focal motor deficits Psychiatric: Orientation: alert, oriented to person and cooperative Eye Contact: good eye contact Affect: euthymic affect Cognition: + recent memory not intact Lymphatic: no lymphedema Results & Data Vital Signs (Past 12 Hours) Vital Signs Temp Pulse Pulse Resp BP BP Pulse Ox 05/25/19 15:00 36.8 C 74 19 159/64 H 91 05/25/19 13:33 36.9 C 74 18 160/62 H 94 05/25/19 13:01 64 152/68 H 05/25/19 12:22 69 130/60 05/25/19 12:00 66 150/63 H 05/25/19 11:40 69 154/68 H 05/25/19 11:21 66 135/57 L 05/25/19 11:06 66 135/57 L 05/25/19 10:57 62 159/66 H 05/25/19 10:20 60 157/66 H 05/25/19 10:00 37.2 C 62 05/25/19 08:00 62 05/25/19 07:08 37.3 C 68 18 152/65 H 91 Laboratory Results 05/25/19 05/25/19 05/25/19 Range/Units 20:21 20:20 08:22 WBC (4.8-10.8) K/uL RBC (4.7-6.1) M/uL Hgb (14.0-18.0) g/dL Hct (42-52) % MCV (80-100) fL MCH (25-34) pg MCHC (32-36) g/dL RDW Std Deviation (36.4-46.3) fL RDW Coeff of Ekta (11.5-14.5) % Plt Count (130-400) K/uL MPV (7.4-10.4) fL Sodium (136-145) mmol/L Potassium 4.0 (3.5-5.1) mmol/L Chloride (98-107) mmol/L Carbon Dioxide (21-32) mmol/L Anion Gap (3-11) BUN (7-18) mg/dl Creatinine (0.6-1.4) mg/dl Est Cr Clr Drug Dosing ml/min Est GFR ( Amer) Est GFR (Non-Af Amer) BUN/Creatinine Ratio (10-20) Glucose (70-99) mg/dl POC Glucose 218 H 237 H (70-99) Calcium (8.5-10.1) mg/dl Phosphorus (2.5-4.9) mg/dl Albumin (3.4-5.0) gm/dl 05/25/19 05/25/19 Range/Units 06:52 06:52 WBC 9.98 (4.8-10.8) K/uL RBC 2.59 L (4.7-6.1) M/uL Hgb 7.8 L (14.0-18.0) g/dL Hct 23.2 L (42-52) % MCV 89.6 (80-100) fL MCH 30.1 (25-34) pg MCHC 33.6 (32-36) g/dL RDW Std Deviation 48.2 H (36.4-46.3) fL RDW Coeff of Ekta 14.8 H (11.5-14.5) % Plt Count 320 (130-400) K/uL MPV 10.6 H (7.4-10.4) fL Sodium 135 L (136-145) mmol/L Potassium (3.5-5.1) mmol/L Chloride 103 (98-107) mmol/L Carbon Dioxide 24 (21-32) mmol/L Anion Gap 9.0 (3-11) BUN 47 H (7-18) mg/dl Creatinine 3.34 H D (0.6-1.4) mg/dl Est Cr Clr Drug Dosing 23.8 ml/min Est GFR ( Amer) 19.5 Est GFR (Non-Af Amer) 16.8 BUN/Creatinine Ratio 14.1 (10-20) Glucose 150 H (70-99) mg/dl POC Glucose (70-99) Calcium 8.1 L (8.5-10.1) mg/dl Phosphorus 4.2 (2.5-4.9) mg/dl Albumin 1.6 L (3.4-5.0) gm/dl PG Care Time/CCT Total # of Minutes Spent Total Time Spent with Patient: Total time spent is greater than 50% in coordination of care (as documented) at patient's floor/unit and/or counseling patient: (1) Gout Chronicity: chronic Gout etiology: unspecified cause Gout site: unspecified site Presence of tophus: without tophus Qualified Code(s): M1A.9XX0 - Chronic gout, unspecified, without tophus (tophi) (2) Type 2 diabetes mellitus Chronic kidney disease stage: stage 3 (moderate) Diabetes mellitus complication detail: with chronic kidney disease Diabetes mellitus complication status: with kidney complications Diabetes mellitus inventory representative insulin use: without senior living use Qualified Code(s): E11.22 - Type 2 diabetes mellitus with diabetic chronic kidney disease; N18.3 - Chronic kidney disease, stage 3 (moderate) (3) Anemia Anemia type: unspecified type Qualified Code(s): D64.9 - Anemia, unspecified (4) Atrial fibrillation Atrial fibrillation type: paroxysmal Qualified Code(s): I48.0 - Paroxysmal atrial fibrillation (5) Diastolic heart failure Heart failure chronicity: chronic Qualified Code(s): I50.32 - Chronic diastolic (congestive) heart failure (6) Hypertension Hypertension type: essential hypertension Qualified Code(s): I10 - Essential (primary) hypertension
[2019-05-25] MEDS: GABAPENTIN 100 MG CAP PO SCH (20:18)
[2019-05-25] MEDS: FLUVOXAMINE MALEATE 50 MG TAB PO SCH (20:18)
[2019-05-26 07:39] LABS: Hemoglobin 7.4 g/dL (14.0-18.0); Mean Corpuscular Hemoglobin 29.6 pg (25-34); Mean Corpuscular Hgb Conc 32.2 g/dL (32-36); Mean Platelet Volume 9.1 fL (7.4-10.4); Platelet Count 326 K/uL (130-400); RDW Coefficient of Variation 14.7 % (11.5-14.5); RDW Standard Deviation 48.7 fL (36.4-46.3); White Blood Count 10.78 K/uL (4.8-10.8)
[2019-05-26] MEDS: METOPROLOL TARTRATE 25 MG TAB PO SCH ×2 (07:49→20:24)
[2019-05-26] MEDS: PRAVASTATIN SOD 10 MG TAB PO SCH (07:50)
[2019-05-26] MEDS: APIXABAN 2.5 MG TAB PO SCH ×2 (07:50→20:24)
[2019-05-26] MEDS: FAMOTIDINE 20 MG TAB PO SCH (07:50)
[2019-05-26 08:08] LABS: Albumin Level 1.5 gm/dl (3.4-5.0); BUN Creatinine Ratio 12.7 (10-20); Calcium 8.3 mg/dl (8.5-10.1); Creatinine Clr Calc Pharmacy 30.4 ml/min; Est GFR (African American) 25.9; Est GFR (Non-African American) 22.4; Magnesium 1.8 mg/dl (1.8-2.4); Potassium 3.9 mmol/L (3.5-5.1)
[2019-05-26 08:13] LABS: Phosphorus 3.4 mg/dl (2.5-4.9)
--- NOTE | 2019-05-26 09:57 | Nephrology Progress Note ---
Date of Service May 26, 2019 Assessment & Plan (1) Acute kidney injury: DAVEY on CKD, in the setting of incarcerated hernia. Baseline creatinine 2.1 mg/dL. Clinical presentation consistent with ATN. CT did not demonstrate obstruction. UA with RBC/WBCs and protein in setting of Toribio catheter. Started on dialysis on 05/16/2019 for anuric acute kidney injury, hyperkalemia and metabolic acidosis. --Continue to monitor for renal recovery --BP and volume status are acceptable --THC placed 05/24/19 --human services care specialist to set up outpatient HD at [facility] --Possible DC to [facility]; I will follow for HD at [facility] if discharged to this facility --Epogen [id number] units provided with HD Thursday for anemia --Repeat metabolic profile and H/H tomorrow AM (2) Chronic kidney disease, stage III (moderate): --Baseline Cr 2.1 (3) Incarcerated inguinal hernia: --s/p operative repair strangulated R inguinal hernia 05/14 --Blood cultures + Pansensitive Citrobacter: now cleared --Remains on IV Unasyn. Dosing as per pharmacy intake coordinator: dosing for renal failure on MWF IHD Subjective No acute events overnight. Marco A feels well today. He tolerated HD yesterday without complications. Breathing comfortably. Review of Systems Review of Systems: All systems reviewed & are unremarkable except as noted in HPI & below Physical Exam Constitutional: no acute distress and not ill appearing Eyes: + anicteric sclerae and PERRL ENMT: Mouth: no oral mucosal abnormality and oral mucous membranes not dry Neck: normal visual inspection and trachea midline Respiratory: normal respiratory effort Auscultation: lungs clear to auscultation bilaterally Cardiovascular: Heart Sounds: normal S1 and normal S2 Vessels: no JVD Extremities: normal capillary refill; no edema Gastrointestinal (Abdomen): Inspection/Auscultation: abdomen not distended Percussion/Palpation: abdomen soft; abdomen nontender Musculoskeletal: Extremities: no cyanosis and no clubbing Skin: normal turgor; no rashes Neurologic: Motor/Sensory: no tremor and no asterixis Psychiatric: Orientation: alert and cooperative Insight: + poor insight Results & Data Vital Signs (Past 12 Hours) Vital Signs Temp Pulse Pulse Resp BP BP Pulse Ox 05/26/19 07:47 36.6 C 55 L 18 144/65 H 91 05/25/19 23:15 36.7 C 68 18 164/66 H 93 Laboratory Results Laboratory Results - last 24 hr 05/25/19 05/25/19 05/26/19 20:20 20:21 07:26 WBC RBC Hgb Hct MCV MCH MCHC RDW Std Deviation RDW Coeff of Ekta Plt Count MPV Sodium 137 Potassium 3.9 Chloride 105 Carbon Dioxide 24 Anion Gap 7.0 BUN 33 H Creatinine 2.64 H D Est Cr Clr Drug Dosing 30.4 Est GFR ( Amer) 25.9 Est GFR (Non-Af Amer) 22.4 BUN/Creatinine Ratio 12.7 Glucose 151 H POC Glucose 237 H 218 H Calcium 8.3 L Phosphorus 3.4 Magnesium 1.8 Albumin 1.5 L 05/26/19 05/26/19 07:26 08:05 WBC 10.78 RBC 2.50 L Hgb 7.4 L Hct 23.0 L MCV 92.0 MCH 29.6 MCHC 32.2 RDW Std Deviation 48.7 H RDW Coeff of Ekta 14.7 H Plt Count 326 MPV 9.1 Sodium Potassium Chloride Carbon Dioxide Anion Gap BUN Creatinine Est Cr Clr Drug Dosing Est GFR ( Amer) Est GFR (Non-Af Amer) BUN/Creatinine Ratio Glucose POC Glucose 138 H Calcium Phosphorus Magnesium Albumin PG Care Time/CCT Total # of Minutes Spent Total Time Spent with Patient: Total time spent is greater than 50% in coordination of care (as documented) at patient's floor/unit and/or counseling patient:
[2019-05-26] MEDS: AMPICILLIN/SULBACTAM SOD 3,000 MG in 0.9 % SODIUM CHLORIDE 100 ML IV SCH (10:01)
--- NOTE | 2019-05-26 12:18 | Internal Medicine Consult Note ---
Date of Consultation May 26, 2019 Assessment & Plan (1) Encounter for rehabilitation evaluation: His medical condition is appropriate for acute inpatient rehab hospital care. His multi-organ pathology will require the level of medical oversight provided in the rehab hospital setting. Dialysis can be provided onsite. Ongoing close oversight of volume status and appropriate labs can be provided. Onsite respiratory therapy will continue to provide assistance with pulmonary toilet. I am available for any questions or information requiring discussion upon discharge. History of Present Illness Reason for Consultation: Rehab Hospital Assessment triggering high risk Attending Physician: Karen Dumas MD History of Present Illness As part of the rehab hospital transfer/admission process Mr. Haddad triggered as a high risk patient. As reviewed he developed an incarcerated hernia with associated sepsis and respiratory failure. Underlying renal dysfunction deteriorated to acute renal failure requiring dialysis. He is extremely weak as a result of the critical illness and will require weeks of rehab hospital care before going home. He normally lives independently with his . His pre- hospital status noteworthy for gait dysfunction. He and his have a goal to return to that level of independent living. Allergies Allergy/AdvReac Type Severity Reaction Status Date / Time latex Allergy Unknown LOCAL SKIN Verified 05/14/19 17:23 IRRITATION lisinopril Allergy Unknown hyperkalemi Verified 05/14/19 17:23 a sulfamethoxazole AdvReac increases Verified 05/14/19 17:23 [From Bactrim] potassium trimethoprim [From Bactrim] AdvReac increases Verified 05/14/19 17:23 potassium Home Medications Home Medications Medication Instructions Recorded Confirmed Type ascorbic acid (vitamin C) 1,000 mg PO QAM 10/08/18 05/14/19 History garlic 1,000 mg PO QAM 10/08/18 05/14/19 History multivitamin 1 tab PO QAM 10/08/18 05/14/19 History pravastatin 10 mg PO QAM 10/08/18 05/14/19 History febuxostat [Uloric] 40 mg PO QAM 12/14/18 05/14/19 History cholecalciferol (vitamin D3) 25 1,000 units PO QAM 01/17/19 05/14/19 History mcg (1,000 unit) capsule fluvoxamine 100 mg PO HS 03/03/19 05/14/19 History apixaban 5 mg tablet 5 mg PO BID #180 tab 04/06/19 05/14/19 Rx ipratropium bromide 42 mcg (0.06 2 spray INTRANASAL BID #15 ml 04/07/19 05/14/19 Rx %) nasal spray aspirin 81 mg tablet,delayed 81 mg PO QAM 04/27/19 05/14/19 History release metoprolol tartrate 25 mg tablet 12.5 mg PO AMPM tab 04/27/19 05/14/19 History cefuroxime axetil 500 mg tablet 500 mg PO BID #20 tab 05/13/19 05/14/19 Rx amlodipine 5 mg PO QAM 05/14/19 05/14/19 History famotidine 40 mg PO QAM 05/14/19 05/14/19 History gabapentin See Rx Instructions mg PO 05/14/19 05/14/19 History DIRECTED glipizide 5 mg PO QAM 05/14/19 05/14/19 History lisinopril 5 mg PO QAM 05/14/19 05/14/19 History omega-3 fatty acids-fish oil [Fish 2,400 cap PO QAM 05/14/19 05/14/19 History Oil] plant stanol amarjit [Cholest Off] 0 mg PO BID 05/14/19 05/14/19 History torsemide 10 mg PO QAM 05/14/19 05/14/19 History vit C,M-Yb-jlvpj-lutein-zeaxan 1 tab PO BID 05/14/19 05/14/19 History [PreserVision AREDS-2] Patient History Medical History Adrenal nodule Afib Arthritis Asymptomatic cholelithiasis Cataracts, both eyes RIGHT EYE BEING DONE FIRST Chronic kidney disease, stage III (moderate) Coronary arteriosclerosis Diabetes Diastolic dysfunction GERD (gastroesophageal reflux disease) High cholesterol History of stress test 2009 [place] D/T PASSED OUT WENT TO [facility]. 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 Hx of fall 09/2018 - SEEN IN ED - HAD CT OF HEAD - NEGATIVE Mitral regurgitation Normal pressure hydrocephalus Peripheral artery disease LEFT LEG Renal insufficiency Thrombocytopenia Surgical History History of back surgery L3-L4 History of left hip replacement History of parathyroidectomy (Resolved) PARTIAL History of right hip replacement X2 Hx of hernia repair Family History Father Myocardial infarction Mother Gout CHF (congestive heart failure) Social History Preferred Language: Slovenian Communication Ability: Unable It Desktop Support Technician Required: No Beliefs That Will Affect Care: None Current Living Situation: Spouse Feels Safe at Home: Yes Smoking Status: Former smoker Tobacco Type: cigarettes ; Second Hand Exposure: No ; Hx Alcohol Use: No Hx Substance Use: No Review of Systems Review of Systems: No new ROS complaints that would change ongoing trajectory. Physical Exam Physical Exam: Gen--anasarca noted--no distress HEENT--no focal issues Respiratory--on RA--comfortable at rest Cardio--vitals--stable GI--functional --gravity bag Neuro--no focal issues--symmetrically weak Musculo--no acute target noted Psych--awake/alert/appropriate Results & Data Vital Signs (Past 12 Hours) Vital Signs Temp Pulse Resp BP Pulse Ox 05/26/19 07:47 36.6 C 55 L 18 144/65 H 91
[2019-05-26] MEDS: IPRATROPIUM BROMIDE NASAL SPRAY 0.06% 15ML NAE SCH ×2 (13:46→20:24)
[2019-05-26] MEDS: FLUVOXAMINE MALEATE 50 MG TAB PO SCH (20:23)
[2019-05-26] MEDS: GABAPENTIN 100 MG CAP PO SCH (20:24)
--- NOTE | 2019-05-26 22:52 | Hospitalist Progress Note ---
Date of Service May 26, 2019 Assessment & Plan (1) SBO (small bowel obstruction): Secondary to strangulated right inguinal hernia. POD #13 s/p reduction of incarcerated right inguinal hernia, small bowel resection (necrotic small bowel within the hernia sac) Having BMs NG tube removed on 05/20 Is now advanced to low fiber diet and tolerating well Appreciate ongoing surgery management -Needs continued ambulation/PT -will need staple removal perhaps at 2 week yi? Will discuss with Surgery prior to discharge tomorrow (2) Strangulated inguinal hernia: as above, status post surgical repair -Surgery following -[place] in place in right lower abdomen/inguinal region (3) Acute respiratory distress syndrome (ARDS): Now resolved, required mech ventilation (4) Acute respiratory failure with hypoxia: Now resolved. Secondary to aspiration pneumonitis, ARDS requiring intubation and mech ventilation, and renal failure Patient now on room air and much improved Has residual cough (5) Gram-negative bacteremia: Repeat blood cultures negative to date Pansensitive Citrobacter koseri blood culture positive. Suspected from ischemic bowel in strangulated hernia. -will now switch to p.o. Augmentin for total of 14 days of antibiotics -last date of treatment would be 05/31/2019. -discontinue IV Unasyn (6) Severe sepsis with septic shock: Now resolved with renal failure requiring hemodialysis With respiratory failure requiring intubation With hypotension requiring vasopressors (7) Acute renal failure due to tubular necrosis: No hydronephrosis on admission. Presentation consistent with ATN secondary to severe sepsis. Appreciate nephrology ongoing management with ongoing diuresis I&Os. -now s/p placement of tunneled dialysis catheter 05/24 -had HD again on 05/23 and 05/25 -plan for HD likely on 05/27 -outpatient HD is arranged starting 05/31 -appreciate Nephrology management (8) Delirium: Delirium on the background of recent sepsis and renal failure Greatly improved now Continue Zyprexa to 5 mg p.o. nightly as needed for agitation Delirium prevention strategies-good sleep-wake cycles, keeping blinds open during the daytime, redirection, supportive care, avoidance of opioids and benzodiazepines as well as antihistamines. (9) Diastolic heart failure: Fluid overload in setting of renal failure. Fluid management with hemodialysis. (10) NPH (normal pressure hydrocephalus): Suspected history of this. Missed diagnostic lumbar puncture due to current admission. - will need to delay further work-up for this until after recovery (11) Stage 3 chronic kidney disease: With acute kidney injury secondary to ATN. See treatment above. Now will be ESRD and have permanent hemodialysis as there has been no renal recovery (12) Atrial fibrillation: A. fib/flutter. Chronic Rates controlled on metoprolol. -continue Eliquis at lower dose 2.5 mg twice daily, however need to discuss with Pharmacy to see if should be back on his 5mg bid dosing (13) PAD (peripheral artery disease): Has known LE PAD - LT SFA, tibial disease as per cardiology notes -continue to hold Aspirin but can restart statin (14) Type 2 diabetes mellitus: HbA1c 5.6 in February suggests no longer needs outpatient glipizide. Likely can be d/c on discharge. Effectively no longer has this diagnosis based on current blood glucose levels and prior HbA1c. (15) Obstructive sleep apnea: Is considered mild and he is not on CPAP at home (16) Thrombocytopenia: Now resolved. In setting of sepsis with negative HIT labs (17) Anemia: Anemia of chronic kidney disease with acute blood loss anemia superimposed s/p 1 unit PRBCs 05/21. Hgb slight decrease again today to 7.4, no obvious bleeding but had tunneled HD catheter placed CBC daily -check iron studies in AM and give IV iron vs PRBCs with HD tomorrow if hgb drops lower -Epogen with dialysis (18) Gout: Uric acid 2.7. Dialysis will deal with this for now but may need restarted on [place] if he comes off dialysis. (19) Hypertension: Continue metoprolol tartrate 12.5 mg p.o. twice daily Blood pressures stable to slightly elevated on current medical regimen (20) Adrenal nodule: Incidentally noted 2.3 cm right adrenal nodule and also noted nodularity of the left adrenal gland on CT -Follow as outpatient (21) Asymptomatic cholelithiasis: Noted numerous gallstones on CT the abdomen/no CBD dilatation, asymptomatic -Follow clinically (22) DVT prophylaxis: SCDs. Eliquis Continue GI prophylaxis with famotidine po, recurrence of belching when this was discontinued. (23) Discharge planning issues: Disposition- awaiting auth from insurance for [facility] acute rehab PT/OT evals-severely weak and deconditioned DNR/DNI Subjective Feeling very well today. Asking for his usual nasal spray from home. Denies CP or OSB, still with mild dry cough. He is eating very well, no BM today, no abd pain. Had repeat PT/OT evals today and is anxious to get to rehab. Confusion is greatly improved as noted by daughter and at bedside. Discussed his case with Nephrology today Review of Systems 2 Review of Systems: All systems reviewed & are unremarkable except as noted in HPI & below Physical Exam Constitutional: WD/WN, vitals as above Eyes: + anicteric sclerae ENMT: Ears: no hearing impairment Neck: trachea midline, no thyromegaly Respiratory: normal respiratory effort; no respiratory distress Auscultation: + crackles (Very minimal, bibasilar, improved from previous); no rhonchi and no wheezes Cardiovascular: Rate/Rhythm: regular rate and + irregularly irregular Heart Sounds: no murmur Extremities: + edema (2+ pitting edema legs bilat improved from previous,trace edema RUE) and + vascular access device (Right internal jugular tunneled catheter in place) Chest (Breasts): Chest: + abnormal inspection of chest (right tunneled IJ cath in place with dressing c/d/i) Gastrointestinal (Abdomen): normal bowel sounds, soft, nontender, no hepatosplenomegaly Inspection/Auscultation: normal bowel sounds; + abdomen abnormal to inspection (Right inguinal region with leslie in place with small amount of surrounding ecchymosis, no erythema or drainage) and abdomen not distended Percussion/Palpation: abdomen soft Musculoskeletal: Extremities: no cyanosis and no clubbing Skin: no rashes, warm and dry Neurologic: moves all extremities and awake; no focal motor deficits Psychiatric: A+Ox3, euthymic affect Orientation: cooperative Eye Contact: good eye contact Affect: euthymic affect Results & Data Vital Signs (Past 12 Hours) Vital Signs Temp Pulse Resp BP Pulse Ox 05/26/19 20:22 70 157/61 H 96 05/26/19 15:10 36.8 C 59 L 16 144/71 H 93 Laboratory Results 05/26/19 05/26/19 05/26/19 Range/Units 21:04 17:27 12:12 WBC (4.8-10.8) K/uL RBC (4.7-6.1) M/uL Hgb (14.0-18.0) g/dL Hct (42-52) % MCV (80-100) fL MCH (25-34) pg MCHC (32-36) g/dL RDW Std Deviation (36.4-46.3) fL RDW Coeff of Ekta (11.5-14.5) % Plt Count (130-400) K/uL MPV (7.4-10.4) fL Sodium (136-145) mmol/L Potassium (3.5-5.1) mmol/L Chloride (98-107) mmol/L Carbon Dioxide (21-32) mmol/L Anion Gap (3-11) BUN (7-18) mg/dl Creatinine (0.6-1.4) mg/dl Est Cr Clr Drug Dosing ml/min Est GFR ( Amer) Est GFR (Non-Af Amer) BUN/Creatinine Ratio (10-20) Glucose (70-99) mg/dl POC Glucose 199 H 176 H 177 H (70-99) Calcium (8.5-10.1) mg/dl Phosphorus (2.5-4.9) mg/dl Magnesium (1.8-2.4) mg/dl Albumin (3.4-5.0) gm/dl 05/26/19 05/26/19 05/26/19 Range/Units 08:05 07:26 07:26 WBC 10.78 (4.8-10.8) K/uL RBC 2.50 L (4.7-6.1) M/uL Hgb 7.4 L (14.0-18.0) g/dL Hct 23.0 L (42-52) % MCV 92.0 (80-100) fL MCH 29.6 (25-34) pg MCHC 32.2 (32-36) g/dL RDW Std Deviation 48.7 H (36.4-46.3) fL RDW Coeff of Ekta 14.7 H (11.5-14.5) % Plt Count 326 (130-400) K/uL MPV 9.1 (7.4-10.4) fL Sodium 137 (136-145) mmol/L Potassium 3.9 (3.5-5.1) mmol/L Chloride 105 (98-107) mmol/L Carbon Dioxide 24 (21-32) mmol/L Anion Gap 7.0 (3-11) BUN 33 H (7-18) mg/dl Creatinine 2.64 H D (0.6-1.4) mg/dl Est Cr Clr Drug Dosing 30.4 ml/min Est GFR ( Amer) 25.9 Est GFR (Non-Af Amer) 22.4 BUN/Creatinine Ratio 12.7 (10-20) Glucose 151 H (70-99) mg/dl POC Glucose 138 H (70-99) Calcium 8.3 L (8.5-10.1) mg/dl Phosphorus 3.4 (2.5-4.9) mg/dl Magnesium 1.8 (1.8-2.4) mg/dl Albumin 1.5 L (3.4-5.0) gm/dl PG Care Time/CCT Total # of Minutes Spent Total Time Spent with Patient: Total time spent is greater than 50% in coordination of care (as documented) at patient's floor/unit and/or counseling patient: (1) Diastolic heart failure Heart failure chronicity: chronic Qualified Code(s): I50.32 - Chronic diastolic (congestive) heart failure (2) Atrial fibrillation Atrial fibrillation type: paroxysmal Qualified Code(s): I48.0 - Paroxysmal atrial fibrillation (3) Type 2 diabetes mellitus Diabetes mellitus emt intermediate insulin use: without group home use Diabetes mellitus complication status: with kidney complications Diabetes mellitus complication detail: with chronic kidney disease Chronic kidney disease stage: stage 3 (moderate) Qualified Code(s): E11.22 - Type 2 diabetes mellitus with diabetic chronic kidney disease; N18.3 - Chronic kidney disease, stage 3 (moderate) (4) Anemia Anemia type: unspecified type Qualified Code(s): D64.9 - Anemia, unspecified (5) Gout Gout site: unspecified site Gout etiology: unspecified cause Chronicity: chronic Presence of tophus: without tophus Qualified Code(s): M1A.9XX0 - Chronic gout, unspecified, without tophus (tophi) (6) Hypertension Hypertension type: essential hypertension Qualified Code(s): I10 - Essential (primary) hypertension
[2019-05-27] MEDS ORDERED: SODIUM CHLORIDE 0.9% 1000ML 1,000 ML IV PRN (07:00)
[2019-05-27] MEDS ORDERED: AMOXICILLIN/CLAVULANATE 875 MG TAB PO SCH (08:00)
[2019-05-27] MEDS: METOPROLOL TARTRATE 25 MG TAB PO SCH ×2 (08:36→21:22)
[2019-05-27] MEDS: IPRATROPIUM BROMIDE NASAL SPRAY 0.06% 15ML NAE SCH ×2 (08:36→21:19)
[2019-05-27] MEDS: PRAVASTATIN SOD 10 MG TAB PO SCH (08:37)
[2019-05-27] MEDS: APIXABAN 2.5 MG TAB PO SCH ×2 (08:37→21:22)
[2019-05-27 08:48] LABS: Hematocrit (blood only) 19.8 % (42-52); Hemoglobin 6.5 g/dL (14.0-18.0); Mean Corpuscular Hemoglobin 30.2 pg (25-34); Mean Corpuscular Hgb Conc 32.8 g/dL (32-36); Mean Corpuscular Volume 92.1 fL (80-100); Mean Platelet Volume 9.5 fL (7.4-10.4); Platelet Count 325 K/uL (130-400); RDW Coefficient of Variation 14.6 % (11.5-14.5); RDW Standard Deviation 49.2 fL (36.4-46.3); Red Blood Count 2.15 M/uL (4.7-6.1); White Blood Count 10.99 K/uL (4.8-10.8)
[2019-05-27] MEDS ORDERED: SODIUM CHLORIDE 0.9% 250 ML IV PRN (08:51)
[2019-05-27 09:11] LABS: Albumin Level 1.5 gm/dl (3.4-5.0); BUN Creatinine Ratio 14.1 (10-20); Calcium 8.2 mg/dl (8.5-10.1); Creatinine Clr Calc Pharmacy 26.6 ml/min; Est GFR (African American) 22.3; Est GFR (Non-African American) 19.2; Potassium 3.9 mmol/L (3.5-5.1)
[2019-05-27 09:16] LABS: Ferritin 84.1 ng/ml (8-388); Phosphorus 3.7 mg/dl (2.5-4.9)
[2019-05-27] MEDS: FAMOTIDINE 20 MG TAB PO SCH (09:21)
--- NOTE | 2019-05-27 17:54 | Nephrology Progress Note ---
Date of Service May 27, 2019 Assessment & Plan (1) Acute kidney injury: DAVEY on CKD, in the setting of incarcerated hernia. Baseline creatinine 2.1 mg/dL. Clinical presentation consistent with ATN. CT did not demonstrate obstruction. UA with RBC/WBCs and protein in setting of Toribio catheter. Started on dialysis on 05/16/2019 for anuric acute kidney injury, hyperkalemia and metabolic acidosis. --Continue to monitor for renal recovery --BP and volume status are acceptable --THC placed 05/24/19 -- Arrangements for outpatient HD at [facility] tentatively for Thursday --Epogen [id number] units provided with HD Thursday for anemia -- 2 units PRBC support provided today --Repeat metabolic profile and H/H tomorrow AM (2) Chronic kidney disease, stage III (moderate): --Baseline Cr 2.1 (3) Incarcerated inguinal hernia: --s/p operative repair strangulated R inguinal hernia 05/14 --Blood cultures + Pansensitive Citrobacter: now cleared --Remains on IV Unasyn. Dosing as per instructor adjunct pharmacy technician: dosing for renal failure on MWF IHD Subjective No acute events overnight. Marco A feels well today. He was seen and evaluated during HD today. 2 units of PRBC support were provided. He has not have a bowel movement. He denies any bleeding. He was upset to hear that [facility] was denied. Review of Systems Review of Systems: All systems reviewed & are unremarkable except as noted in HPI & below Physical Exam Constitutional: no acute distress and not ill appearing Eyes: + anicteric sclerae and PERRL ENMT: Mouth: no oral mucosal abnormality and oral mucous membranes not dry Neck: normal visual inspection and trachea midline Respiratory: normal respiratory effort Auscultation: lungs clear to auscultation bilaterally Cardiovascular: Heart Sounds: normal S1 and normal S2 Vessels: no JVD Extremities: normal capillary refill; no edema Gastrointestinal (Abdomen): Inspection/Auscultation: abdomen not distended Percussion/Palpation: abdomen soft; abdomen nontender Musculoskeletal: Extremities: no cyanosis and no clubbing Skin: normal turgor; no rashes Neurologic: Motor/Sensory: no tremor and no asterixis Psychiatric: Orientation: alert and cooperative Insight: + poor insight Results & Data Vital Signs (Past 12 Hours) Vital Signs Temp Pulse Pulse Pulse Resp BP BP 05/27/19 17:40 82 137/71 05/27/19 17:20 78 156/81 H 05/27/19 17:00 75 160/75 H 05/27/19 16:40 78 161/76 H 05/27/19 16:20 72 164/81 H 05/27/19 16:00 72 154/79 H 05/27/19 15:40 71 165/84 H 05/27/19 15:20 64 178/84 H 05/27/19 15:17 36.9 C 64 18 178/84 H 05/27/19 15:02 36.9 C 69 69 154/81 H 05/27/19 14:48 36.9 C 63 18 171/68 H 05/27/19 14:23 37.1 C 63 18 164/73 H 05/27/19 14:06 37.1 C 65 18 05/27/19 13:48 36.9 C 65 18 141/67 H 05/27/19 12:25 36.9 C 65 18 136/53 L 05/27/19 11:25 37.3 C 74 18 177/71 H 05/27/19 11:23 36.9 C 63 18 174/73 H 05/27/19 10:55 36.9 C 67 18 172/64 H 05/27/19 10:40 36.9 C 74 18 161/72 H 05/27/19 10:23 36.9 C 76 18 158/63 H 05/27/19 08:00 36.5 C 69 16 125/65 Pulse Ox 05/27/19 17:40 05/27/19 17:20 05/27/19 17:00 05/27/19 16:40 05/27/19 16:20 05/27/19 16:00 05/27/19 15:40 05/27/19 15:20 05/27/19 15:17 05/27/19 15:02 05/27/19 14:48 96 05/27/19 14:23 96 05/27/19 14:06 97 05/27/19 13:48 05/27/19 12:25 95 05/27/19 11:25 94 05/27/19 11:23 96 05/27/19 10:55 96 05/27/19 10:40 93 05/27/19 10:23 05/27/19 08:00 92 Laboratory Results Laboratory Results - last 24 hr 05/26/19 05/27/19 05/27/19 21:04 08:16 08:17 WBC RBC Hgb Hct MCV MCH MCHC RDW Std Deviation RDW Coeff of Ekta Plt Count MPV Sodium 136 Potassium 3.9 Chloride 106 Carbon Dioxide 23 Anion Gap 6.0 BUN 42 H Creatinine 2.99 H D Est Cr Clr Drug Dosing 26.6 Est GFR ( Amer) 22.3 Est GFR (Non-Af Amer) 19.2 BUN/Creatinine Ratio 14.1 Glucose 163 H POC Glucose 199 H 178 H Calcium 8.2 L Phosphorus 3.7 Iron 18 L Transferrin 141 L Transferrin % Sat 9 L Ferritin 84.1 Albumin 1.5 L Blood Type Antibody Screen Crossmatch 05/27/19 05/27/19 05/27/19 08:17 09:08 12:04 WBC 10.99 H RBC 2.15 L Hgb 6.5 L* Hct 19.8 L* MCV 92.1 MCH 30.2 MCHC 32.8 RDW Std Deviation 49.2 H RDW Coeff of Ekta 14.6 H Plt Count 325 MPV 9.5 Sodium Potassium Chloride Carbon Dioxide Anion Gap BUN Creatinine Est Cr Clr Drug Dosing Est GFR ( Amer) Est GFR (Non-Af Amer) BUN/Creatinine Ratio Glucose POC Glucose 190 H Calcium Phosphorus Iron Transferrin Transferrin % Sat Ferritin Albumin Blood Type B Positive Antibody Screen NEGATIVE Crossmatch See Detail PG Care Time/CCT Total # of Minutes Spent Total Time Spent with Patient: Total time spent is greater than 50% in coordination of care (as documented) at patient's floor/unit and/or counseling patient:
[2019-05-27] MEDS ORDERED: AMOXICILLIN/CLAVULANATE 500 MG TAB PO PRN (19:00)
--- NOTE | 2019-05-27 21:04 | Hospitalist Progress Note ---
Date of Service May 27, 2019 Assessment & Plan (1) SBO (small bowel obstruction): Secondary to strangulated right inguinal hernia. POD #14 s/p reduction of incarcerated right inguinal hernia, small bowel resection (necrotic small bowel within the hernia sac) Having BMs NG tube removed on 05/20 Is now advanced to low fiber diet and tolerating well Appreciate ongoing surgery management -Needs continued ambulation/PT -will need staple removal perhaps at 2 week yi? Will discuss with Surgery prior to discharge tomorrow (2) Strangulated inguinal hernia: as above, status post surgical repair -Surgery following -Rumsey in place in right lower abdomen/inguinal region (3) Acute respiratory distress syndrome (ARDS): Now resolved, required mech ventilation (4) Acute respiratory failure with hypoxia: Now resolved. Secondary to aspiration pneumonitis, ARDS requiring intubation and mech ventilation, and renal failure Patient now on room air and much improved COugh now resolved also and lungs sound much clearer (5) Gram-negative bacteremia: Repeat blood cultures negative to date Pansensitive Citrobacter koseri blood culture positive. Suspected from ischemic bowel in strangulated hernia. -now on p.o. Augmentin for total of 14 days of antibiotics -last date of treatment would be 05/31/2019. -discontinued IV Unasyn (6) Severe sepsis with septic shock: Now resolved with renal failure requiring hemodialysis With respiratory failure requiring intubation With hypotension requiring vasopressors (7) Acute renal failure due to tubular necrosis: No hydronephrosis on admission. Presentation consistent with ATN s econdary to severe sepsis. Appreciate nephrology ongoing management with ongoing diuresis I&Os. -now s/p placement of tunneled dialysis catheter 05/24 -had HD again on 05/23 and 05/25, 05/27 -outpatient HD is arranged starting 05/31 -appreciate Nephrology management -d/c Toribio in the AM, making some urine, about 400mL daily (8) Delirium: Delirium on the background of recent sepsis and renal failure Greatly improved now, with some residual confusion mostly at nighttime Continue Zyprexa to 5 mg p.o. nightly as needed for agitation Delirium prevention strategies-good sleep-wake cycles, keeping blinds open during the daytime, redirection, supportive care, avoidance of opioids and benzodiazepines as well as antihistamines. (9) Diastolic heart failure: Fluid overload in setting of renal failure. Fluid management with hemodialysis. (10) NPH (normal pressure hydrocephalus): Suspected history of this. Missed diagnostic lumbar puncture due to current admission. - will need to delay further work-up for this until after recovery (11) Stage 3 chronic kidney disease: With acute kidney injury secondary to ATN. See treatment above. Now will be ESRD and have permanent hemodialysis as there has been no renal recovery (12) Atrial fibrillation: A. fib/flutter. Chronic Rates controlled on metoprolol. -continue Eliquis at lower dose 2.5 mg twice daily, however need to discuss with Pharmacy to see if should be back on his 5mg bid dosing (13) PAD (peripheral artery disease): Has known LE PAD - LT SFA, tibial disease as per cardiology notes -continue to hold Aspirin but can restart statin (14) Type 2 diabetes mellitus: HbA1c 5.6 in February suggests no longer needs outpatient glipizide. Likely can be d/c on discharge. Effectively no longer has this diagnosis based on current blood glucose levels and prior HbA1c. (15) Obstructive sleep apnea: Is considered mild and he is not on CPAP at home (16) Thrombocytopenia: Now resolved. In setting of sepsis with negative HIT labs (17) Anemia: Anemia of chronic kidney disease with acute blood loss anemia superimposed from surgery, dialysis catheter placement perhaps, multiple blood draws, [facility] hospitalization s/p 1 unit PRBCs 05/21. Hgb slight decrease again today to 6.5, no obvious bleeding--> transfuse 2 units PRBCs today with HD - iron studies show Fe deficiency, trans sat 9% -Epogen with dialysis -follow CBC in AM (18) Gout: Uric acid 2.7. Dialysis will deal with this for now but may need restarted on Uloric if he comes off dialysis. (19) Hypertension: Continue metoprolol tartrate 12.5 mg p.o. twice daily Blood pressures stable to slightly elevated on current medical regimen (20) Adrenal nodule: Incidentally noted 2.3 cm right adrenal nodule and also noted nodularity of the left adrenal gland on CT -Follow as outpatient (21) Asymptomatic cholelithiasis: Noted numerous gallstones on CT the abdomen/no CBD dilatation, asymptomatic -Follow clinically (22) Constipation: no BM in 3-4 days now -start docusate and daily Miralax (23) DVT prophylaxis: SCDs. Eliquis Continue GI prophylaxis with famotidine po, recurrence of belching when this was discontinued. (24) Discharge planning issues: Disposition- auth from insurance denied for [facility] acute rehab-- > Family APpeal pending PT/OT evals-severely weak and deconditioned but improving slightly day by day DNR/DNI Subjective Pt is feeling frustrated today. He was anxious that he needed a blood transfusion today, and then frustrated that the insurance denied his rehab stay. He had HD today and tolerated that well. Review of Systems Review of Systems: All systems reviewed & are unremarkable except as noted in HPI & below (no chest pain or SOB, no abd pain, no BM in several days) Physical Exam Constitutional: WD/WN, vitals as above Eyes: + anicteric sclerae ENMT: Ears: no hearing impairment Neck: trachea midline, no thyromegaly Respiratory: normal respiratory effort, lungs clear to auscultation Cardiovascular: Rate/Rhythm: regular rate and + irregularly irregular Heart Sounds: no murmur Extremities: + edema (2+ pitting edema legs bilat ) and + vascular access device (Right internal jugular tunneled catheter in place) Chest (Breasts): Chest: + abnormal inspection of chest (right tunneled IJ cath in place with dressing c/d/i) Gastrointestinal (Abdomen): normal bowel sounds, soft, nontender, no hepatosplenomegaly Inspection/Auscultation: normal bowel sounds; + abdomen abnormal to inspection (Right inguinal region with leslie in place with small amount of surrounding ecchymosis, no erythema or drainage) and abdomen not distended Percussion/Palpation: abdomen soft Musculoskeletal: Extremities: no cyanosis and no clubbing Skin: no rashes, warm and dry Neurologic: moves all extremities and awake; no focal motor deficits Psychiatric: Orientation: cooperative Eye Contact: good eye contact Affect: euthymic affect Results & Data Vital Signs (Past 12 Hours) Vital Signs Temp Pulse Pulse Resp BP BP Pulse Ox 05/27/19 18:04 37.3 C 83 83 171/81 H 171/81 H 05/27/19 17:40 82 137/71 05/27/19 17:20 78 156/81 H 05/27/19 17:00 75 160/75 H 05/27/19 16:40 78 161/76 H 05/27/19 16:20 72 164/81 H 05/27/19 16:00 72 154/79 H 05/27/19 15:40 71 165/84 H 05/27/19 15:20 64 178/84 H 05/27/19 15:17 36.9 C 64 18 178/84 H 05/27/19 15:02 36.9 C 69 69 154/81 H 05/27/19 14:48 36.9 C 63 18 171/68 H 96 05/27/19 14:23 37.1 C 63 18 164/73 H 96 05/27/19 14:06 37.1 C 65 18 97 05/27/19 13:48 36.9 C 65 18 141/67 H 05/27/19 12:25 36.9 C 65 18 136/53 L 95 05/27/19 11:25 37.3 C 74 18 177/71 H 94 05/27/19 11:23 36.9 C 63 18 174/73 H 96 05/27/19 10:55 36.9 C 67 18 172/64 H 96 05/27/19 10:40 36.9 C 74 18 161/72 H 93 05/27/19 10:23 36.9 C 76 18 158/63 H Laboratory Results 05/27/19 05/27/19 05/27/19 Range/Units 12:04 09:08 08:17 WBC 10.99 H (4.8-10.8) K/uL RBC 2.15 L (4.7-6.1) M/uL Hgb 6.5 L* (14.0-18.0) g/dL Hct 19.8 L* (42-52) % MCV 92.1 (80-100) fL MCH 30.2 (25-34) pg MCHC 32.8 (32-36) g/dL RDW Std Deviation 49.2 H (36.4-46.3) fL RDW Coeff of Ekta 14.6 H (11.5-14.5) % Plt Count 325 (130-400) K/uL MPV 9.5 (7.4-10.4) fL Sodium (136-145) mmol/L Potassium (3.5-5.1) mmol/L Chloride (98-107) mmol/L Carbon Dioxide (21-32) mmol/L Anion Gap (3-11) BUN (7-18) mg/dl Creatinine (0.6-1.4) mg/dl Est Cr Clr Drug Dosing ml/min Est GFR ( Amer) Est GFR (Non-Af Amer) BUN/Creatinine Ratio (10-20) Glucose (70-99) mg/dl POC Glucose 190 H (70-99) Calcium (8.5-10.1) mg/dl Phosphorus (2.5-4.9) mg/dl Iron (35-175) mcg/dl Transferrin (200-360) mg/dl Transferrin % Sat (20-50) % Ferritin (8-388) ng/ml Albumin (3.4-5.0) gm/dl Blood Type B Positive Antibody Screen NEGATIVE Crossmatch See Detail 05/27/19 05/27/19 Range/Units 08:17 08:16 WBC (4.8-10.8) K/uL RBC (4.7-6.1) M/uL Hgb (14.0-18.0) g/dL Hct (42-52) % MCV (80-100) fL MCH (25-34) pg MCHC (32-36) g/dL RDW Std Deviation (36.4-46.3) fL RDW Coeff of Ekta (11.5-14.5) % Plt Count (130-400) K/uL MPV (7.4-10.4) fL Sodium 136 (136-145) mmol/L Potassium 3.9 (3.5-5.1) mmol/L Chloride 106 (98-107) mmol/L Carbon Dioxide 23 (21-32) mmol/L Anion Gap 6.0 (3-11) BUN 42 H (7-18) mg/dl Creatinine 2.99 H D (0.6-1.4) mg/dl Est Cr Clr Drug Dosing 26.6 ml/min Est GFR ( Amer) 22.3 Est GFR (Non-Af Amer) 19.2 BUN/Creatinine Ratio 14.1 (10-20) Glucose 163 H (70-99) mg/dl POC Glucose 178 H (70-99) Calcium 8.2 L (8.5-10.1) mg/dl Phosphorus 3.7 (2.5-4.9) mg/dl Iron 18 L (35-175) mcg/dl Transferrin 141 L (200-360) mg/dl Transferrin % Sat 9 L (20-50) % Ferritin 84.1 (8-388) ng/ml Albumin 1.5 L (3.4-5.0) gm/dl Blood Type Antibody Screen Crossmatch PG Care Time/CCT Total # of Minutes Spent Total Time Spent with Patient: Total time spent is greater than 50% in coordination of care (as documented) at patient's floor/unit and/or counseling patient: (1) Diastolic heart failure Heart failure chronicity: chronic Qualified Code(s): I50.32 - Chronic diastolic (congestive) heart failure (2) Atrial fibrillation Atrial fibrillation type: paroxysmal Qualified Code(s): I48.0 - Paroxysmal atrial fibrillation (3) Type 2 diabetes mellitus 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 insulin use: without detention use Diabetes mellitus complication status: with kidney complications Diabetes mellitus complication detail: with chronic kidney disease Chronic kidney disease stage: stage 3 (moderate) Qualified Code(s): E11.22 - Type 2 diabetes mellitus with diabetic chronic kidney disease; N18.3 - Chronic kidney disease, stage 3 (moderate) (4) Anemia Anemia type: unspecified type Qualified Code(s): D64.9 - Anemia, unspecified (5) Gout Gout site: unspecified site Gout etiology: unspecified cause Chronicity: chronic Presence of tophus: without tophus Qualified Code(s): M1A.9XX0 - Chronic gout, unspecified, without tophus (tophi) (6) Hypertension Hypertension type: essential hypertension Qualified Code(s): I10 - Essential (primary) hypertension
[2019-05-27] MEDS: GABAPENTIN 100 MG CAP PO SCH (21:22)
[2019-05-27] MEDS: FLUVOXAMINE MALEATE 50 MG TAB PO SCH (21:23)
[2019-05-27] MEDS: DOCUSATE SODIUM 100 MG CAP PO SCH (22:03)
[2019-05-28 08:12] LABS: Hematocrit (blood only) 21.4 % (42-52); Hemoglobin 7.1 g/dL (14.0-18.0); Mean Corpuscular Hemoglobin 29.3 pg (25-34); Mean Corpuscular Hgb Conc 33.2 g/dL (32-36); Mean Corpuscular Volume 88.4 fL (80-100); Mean Platelet Volume 9.4 fL (7.4-10.4); Platelet Count 278 K/uL (130-400); RDW Coefficient of Variation 14.9 % (11.5-14.5); RDW Standard Deviation 48.5 fL (36.4-46.3); Red Blood Count 2.42 M/uL (4.7-6.1); White Blood Count 9.96 K/uL (4.8-10.8)
[2019-05-28 08:44] LABS: Albumin Level 1.5 gm/dl (3.4-5.0); BUN Creatinine Ratio 17.8 (10-20); Calcium 8.2 mg/dl (8.5-10.1); Creatinine Clr Calc Pharmacy 35.1 ml/min; Est GFR (African American) 30.8; Est GFR (Non-African American) 26.5; Magnesium 1.7 mg/dl (1.8-2.4); Potassium 4.4 mmol/L (3.5-5.1)
[2019-05-28 08:45] LABS: Phosphorus 2.9 mg/dl (2.5-4.9)
[2019-05-28] MEDS ORDERED: SODIUM CHLORIDE 0.9% 250 ML IV PRN (08:52)
[2019-05-28] MEDS: IPRATROPIUM BROMIDE NASAL SPRAY 0.06% 15ML NAE SCH ×2 (09:01→21:00)
[2019-05-28] MEDS: METOPROLOL TARTRATE 25 MG TAB PO SCH ×2 (09:02→21:00)
[2019-05-28] MEDS: FAMOTIDINE 20 MG TAB PO SCH (09:03)
[2019-05-28] MEDS: AMOXICILLIN/CLAVULANATE 500 MG TAB PO SCH (09:03)
[2019-05-28] MEDS: POLYETHYLENE (MIRALAX) 17 GM PACK PO SCH (09:05)
[2019-05-28] MEDS: PRAVASTATIN SOD 10 MG TAB PO SCH (09:05)
[2019-05-28] MEDS: DOCUSATE SODIUM 100 MG CAP PO SCH ×2 (09:05→21:03)
--- NOTE | 2019-05-28 09:22 | Hospitalist Progress Note ---
Date of Service May 28, 2019 Assessment & Plan (1) SBO (small bowel obstruction): Secondary to strangulated right inguinal hernia. POD #15 s/p reduction of incarcerated right inguinal hernia, small bowel resection (necrotic small bowel within the hernia sac) Having BMs NG tube removed on 05/20 Is now advanced to low fiber diet and tolerating well, however now with GI bleed as below-we will make n.p.o. Appreciate surgery management -Needs continued ambulation/PT -will need staple removal-discussed with surgery-we will remove them today -No lifting over 20 pounds for 6 to 8 weeks, he can shower and will have them follow-up with him after discharge (2) Melena: Large black liquid stool on 05/28 with drop in hemoglobin Hemodynamically stable -Start IV Protonix 40 mg twice daily -Hold Eliquis -Continue to hold aspirin -Consulted GI and discussed, will make n.p.o. and possible EGD later today or tomorrow, or sooner if becomes hemodynamically unstable -Likely from stress ulcer from critical illness (3) Anemia: Anemia of chronic kidney disease with superimposed acute blood loss anemia initially from surgery, multiple blood draws, prolonged hospitalization, and now with development of GI bleed on 05/28 s/p 1 unit PRBCs 05/21. Hgb decreased again to 6.5, no obvious bleeding on 05/27--> transfused 2 units PRBCs with HD Despite recent transfusion, hemoglobin still only 7.1 on 05/28--> secondary to GI bleed as above, with witnessed melena -Transfuse 2 more units today urgently and consulted GI as above -Starting PPI as above - iron studies show Fe deficiency, trans sat 9% -Epogen with dialysis -follow CBC serially -Holding Eliquis and aspirin (4) Strangulated inguinal hernia: as above, status post surgical repair -Surgery following -Leslie in place in right lower abdomen/inguinal region to be removed today (5) Acute respiratory distress syndrome (ARDS): Now resolved, required mech ventilation (6) Acute respiratory failure with hypoxia: Now resolved. Secondary to aspiration pneumonitis, ARDS requiring intubation and mech ventilation, and renal failure Patient now on room air and much improved COugh now resolved also and lungs sound much clearer, with bronchovesicular sounds in right lower lung mckeon likely atelectasis Needs ambulation (7) Gram-negative bacteremia: Repeat blood cultures negative to date Pansensitive Citrobacter koseri blood culture positive. Suspected from ischemic bowel in strangulated hernia. -now on p.o. Augmentin for total of 14 days of antibiotics -last date of treatment would be 05/31/2019. -discontinued IV Unasyn (8) Severe sepsis with septic shock: Now resolved with renal failure requiring hemodialysis With respiratory failure requiring intubation With hypotension requiring vasopressors (9) Acute renal failure due to tubular necrosis: No hydronephrosis on admission. Presentation consistent with ATN secondary to severe sepsis. Appreciate nephrology ongoing management with ongoing diuresis I&Os. -now s/p placement of tunneled dialysis catheter 05/24 -had HD again on 05/23 and 05/25, 05/27 -outpatient HD is arranged starting 05/31 -appreciate Nephrology management -d/cd Toribio, making some urine, about 400mL daily (10) Delirium: Delirium on the background of recent sepsis and renal failure Greatly improved now, with some residual confusion mostly at nighttime Continue Zyprexa to 5 mg p.o. nightly as needed for agitation Delirium prevention strategies-good sleep-wake cycles, keeping blinds open during the daytime, redirection, supportive care, avoidance of opioids and benzodiazepines as well as antihistamines. (11) Diastolic heart failure: Fluid overload in setting of renal failure. Fluid management with hemodialysis. (12) NPH (normal pressure hydrocephalus): Suspected history of this. Missed diagnostic lumbar puncture due to current admission. - will need to delay further work-up for this until after recovery (13) Stage 3 chronic kidney disease: With acute kidney injury secondary to ATN. See treatment above. Now will be ESRD and have permanent hemodialysis as there has been no renal recovery (14) Atrial fibrillation: A. fib/flutter. Chronic Rates controlled on metoprolol. -We will now hold Eliquis -When okay to restart Eliquis, will discuss with Pharmacy to see if should be back on his 5mg bid dosing versus 2.5 in the setting of dialysis (15) PAD (peripheral artery disease): Has known LE PAD - LT SFA, tibial disease as per cardiology notes -continue to hold Aspirin but have since restarted statin (16) Type 2 diabetes mellitus: HbA1c 5.6 in February suggests no longer needs outpatient glipizide. Likely can be d/c on discharge. Effectively no longer has this diagnosis based on current blood glucose levels and prior HbA1c. (17) Obstructive sleep apnea: Is considered mild and he is not on CPAP at home (18) Thrombocytopenia: Now resolved. In setting of sepsis with negative HIT labs (19) Gout: Uric acid 2.7. Dialysis will deal with this for now but may need restarted on Uloric if he comes off dialysis. (20) Hypertension: Continue metoprolol tartrate 12.5 mg p.o. twice daily Blood pressures stable to slightly elevated on current medical regimen (21) Adrenal nodule: Incidentally noted 2.3 cm right adrenal nodule and also noted nodularity of the left adrenal gland on CT -Follow as outpatient (22) Asymptomatic cholelithiasis: Noted numerous gallstones on CT the abdomen/no CBD dilatation, asymptomatic -Follow clinically (23) Constipation: Had no bowel movement for 3 to 4 days and now with melena as above -DC Dexilant and MiraLAX for now (24) DVT prophylaxis: SCDs. Eliquis now on hold (25) Discharge planning issues: Disposition- auth from insurance denied for [facility] acute rehab--> Family APpeal pending, however now with acute GI bleed, hold off on discharge as not medically stable PT/OT evals-severely weak and deconditioned but improving slightly day by day DNR/DNI Subjective Pt with large liquid black stool this morning. Reports he ate hard-boiled egg last day and then had a tremendous amount of flatus passed off through the night and then had a bowel movement this morning. He denies heartburn or indigestion, no abdominal pain. This is the first bowel movement he has had in 4 days. He denies chest pain or shortness of breath but is starting to feel little bit lightheaded right now. He did eat breakfast this morning. He did not receive his Eliquis today. I discussed his case with gastroenterology, general surgery covering attending, and the nurse. Review of Systems Review of Systems: All systems reviewed & are unremarkable except as noted in HPI & below Physical Exam Constitutional: WD/WN, vitals as above Eyes: + anicteric sclerae ENMT: Ears: no hearing impairment Neck: trachea midline, no thyromegaly Respiratory: normal respiratory effort; no respiratory distress Auscultation: + bronchovesicular breath sounds (At right base); no crackles, no rhonchi and no wheezes Cardiovascular: Rate/Rhythm: regular rate and + irregularly irregular Heart Sounds: no murmur Extremities: + edema (2+ pitting edema legs bilat ) and + vascular access device (Right internal jugular tunneled catheter in place) Chest (Breasts): Chest: + abnormal inspection of chest (right tunneled IJ cath in place with dressing c/d/i) Gastrointestinal (Abdomen): Inspection/Auscultation: normal bowel sounds; + abdomen abnormal to inspection (Right inguinal region with leslie in place with small amount of surrounding ecchymosis, no erythema or drainage) and abdomen not distended Percussion/Palpation: abdomen soft Musculoskeletal: Extremities: no cyanosis and no clubbing Skin: no rashes, warm and dry Neurologic: moves all extremities and awake; no focal motor deficits Psychiatric: Orientation: cooperative Eye Contact: good eye contact Affect: euthymic affect Genitourinary: no testicular masses, no penis abnormality Lymphatic: no lymphedema Results & Data Vital Signs (Past 12 Hours) Vital Signs Temp Pulse Resp BP BP Pulse Ox 05/28/19 09:18 37.0 C 78 18 147/74 H 97 05/28/19 07:35 36.5 C 60 18 173/69 H 95 05/27/19 23:08 37.0 C 79 16 149/78 H 95 05/27/19 21:23 76 126/63 96 Laboratory Results 05/28/19 05/28/19 05/28/19 Range/Units 08:11 07:30 07:30 WBC 9.96 (4.8-10.8) K/uL RBC 2.42 L (4.7-6.1) M/uL Hgb 7.1 L (14.0-18.0) g/dL Hct 21.4 L (42-52) % MCV 88.4 (80-100) fL MCH 29.3 (25-34) pg MCHC 33.2 (32-36) g/dL RDW Std Deviation 48.5 H (36.4-46.3) fL RDW Coeff of Ekta 14.9 H (11.5-14.5) % Plt Count 278 (130-400) K/uL MPV 9.4 (7.4-10.4) fL Sodium 137 (136-145) mmol/L Potassium 4.4 (3.5-5.1) mmol/L Chloride 105 (98-107) mmol/L Carbon Dioxide 25 (21-32) mmol/L Anion Gap 7.0 (3-11) BUN 41 H (7-18) mg/dl Creatinine 2.29 H D (0.6-1.4) mg/dl Est Cr Clr Drug Dosing 35.1 ml/min Est GFR ( Amer) 30.8 Est GFR (Non-Af Amer) 26.5 BUN/Creatinine Ratio 17.8 (10-20) Glucose 174 H (70-99) mg/dl POC Glucose 179 H (70-99) Calcium 8.2 L (8.5-10.1) mg/dl Phosphorus 2.9 (2.5-4.9) mg/dl Magnesium 1.7 L (1.8-2.4) mg/dl Albumin 1.5 L (3.4-5.0) gm/dl Blood Type Antibody Screen Crossmatch 05/27/19 05/27/19 05/27/19 Range/Units 21:08 12:04 09:08 WBC (4.8-10.8) K/uL RBC (4.7-6.1) M/uL Hgb (14.0-18.0) g/dL Hct (42-52) % MCV (80-100) fL MCH (25-34) pg MCHC (32-36) g/dL RDW Std Deviation (36.4-46.3) fL RDW Coeff of Ekta (11.5-14.5) % Plt Count (130-400) K/uL MPV (7.4-10.4) fL Sodium (136-145) mmol/L Potassium (3.5-5.1) mmol/L Chloride (98-107) mmol/L Carbon Dioxide (21-32) mmol/L Anion Gap (3-11) BUN (7-18) mg/dl Creatinine (0.6-1.4) mg/dl Est Cr Clr Drug Dosing ml/min Est GFR ( Amer) Est GFR (Non-Af Amer) BUN/Creatinine Ratio (10-20) Glucose (70-99) mg/dl POC Glucose 174 H 190 H (70-99) Calcium (8.5-10.1) mg/dl Phosphorus (2.5-4.9) mg/dl Magnesium (1.8-2.4) mg/dl Albumin (3.4-5.0) gm/dl Blood Type B Positive Antibody Screen NEGATIVE Crossmatch See Detail PG Care Time/CCT Total # of Minutes Spent Total Time Spent with Patient: Total time spent is greater than 50% in coordination of care (as documented) at patient's floor/unit and/or counseling patient: (1) Diastolic heart failure Heart failure chronicity: chronic Qualified Code(s): I50.32 - Chronic diastolic (congestive) heart failure (2) Atrial fibrillation Atrial fibrillation type: paroxysmal Qualified Code(s): I48.0 - Paroxysmal atrial fibrillation (3) Type 2 diabetes mellitus Diabetes mellitus 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9XX0 - Chronic gout, unspecified, without tophus (tophi) (6) Hypertension Hypertension type: essential hypertension Qualified Code(s): I10 - Essential (primary) hypertension
[2019-05-28] MEDS ORDERED: FUROSEMIDE 40 MG TAB PO ONE (09:41)
[2019-05-28] MEDS: PANTOprazole 40 MG in SYRINGE 0 ML IV SCH ×2 (09:58→21:04)
--- NOTE | 2019-05-28 11:05 | Consultation Report ---
DATE OF CONSULTATION: 05/28/2019 REASON FOR EVALUATION: GI bleeding. HISTORY OF PRESENT ILLNESS: The patient is a 78-year-old admitted on 05/14/2019 with a strangulated right inguinal hernia. The patient underwent an emergent operation at that time, was found to have necrotic bowel. Postoperative complications include acute kidney injury requiring placement of a PermCath and now on hemodialysis. The patient was taking Eliquis as an outpatient for atrial fibrillation and his blood count has been dropping down to the 6 range requiring some transfusions. He is not complaining of any abdominal pain. He has never had any ulcers before. He has never had a colonoscopy either. Prior to switching to Eliquis, he was on baby aspirin once a day, but he has been off that for some time and he denies any use of nonsteroidals. The patient started having melenic stool today and GI consultation has been obtained. Of note is that his vital signs have remained in the normal range through this process and he has been started on IV Protonix 40 mg twice a day. PAST MEDICAL HISTORY: Remarkable for atrial fibrillation. He has got degenerative arthritis, bilateral cataracts, diabetes, esophageal reflux, elevated cholesterol, peripheral artery disease in his left leg. PAST SURGICAL HISTORY: He has had L3-L4 back surgery, left hip replacement, parathyroidectomy, right hip replacement and a right inguinal hernia repair. ALLERGIES: LATEX, LISINOPRIL, SULFAMETHOXAZOLE AND TRIMETHOPRIM. HOME MEDICATIONS: Per list including Eliquis. FAMILY HISTORY: Father of myocardial infarction. Mother of congestive heart failure and had gout. SOCIAL HISTORY: The patient is and lives with his spouse. Former smoker, quit smoking in 1984. No alcohol. REVIEW OF SYSTEMS: Positive for some weakness. Remainder is negative. PHYSICAL EXAMINATION: GENERAL: The patient appears pale, but in no acute distress. VITAL SIGNS: Blood pressure is 160/98, pulse is irregularly irregular. ABDOMEN: Shows no scars. He does have a fresh incision on the right inguinal area, which is healing well. There are no masses, tenderness or hepatosplenomegaly. IMPRESSION AND PLAN: The patient has GI bleeding, most likely from a stress ulcer. The patient had Spanish toast, applesauce and coffee for breakfast this morning and there is a full OR schedule today. He would not be able to be scoped till 6:00 tonight or later, so I plan on doing him tomorrow morning around 8:30 and we will keep him n.p.o. after midnight. He was able to eat during the day today. He will continue on IV Protonix for now.
--- NOTE | 2019-05-28 12:43 | Nephrology Progress Note ---
Date of Service May 28, 2019 Assessment & Plan (1) Acute kidney injury: DAVEY on CKD, in the setting of incarcerated hernia. Baseline creatinine 2.1 mg/dL. Clinical presentation consistent with ATN. CT did not demonstrate obstruction. UA with RBC/WBCs and protein in setting of Toribio catheter. Started on dialysis on 05/16/2019 for anuric acute kidney injury, hyperkalemia and metabolic acidosis. Had dialysis yesterday and currently scheduled for Thursday dialysis as an outpatient. Currently electrolyte and volume status acceptable. Having GI bleeding and was seen by GI and plan for EGD/colonoscopy tomorrow. --hold dialysis over the weekend and Continue to monitor for renal recovery --BP and volume status are acceptable --Repeat metabolic profile and H/H tomorrow AM (2) Chronic kidney disease, stage III (moderate): --Baseline Cr 2.1 (3) Incarcerated inguinal hernia: --s/p operative repair strangulated R inguinal hernia 05/14 --Blood cultures + Pansensitive Citrobacter: now cleared --Remains on IV Unasyn. Dosing as per pharmacy technician assistant: dosing for renal failure on MWF IHD Susu Scott was seen and examined in his room this morning. Had dialysis yesterday, renal function stable today, volume status acceptable although blood pressure elevated. Hemoglobin dropped yesterday and remained low despite receiving 2 units of PRBC and he overnight developed GI bleeding. Currently getting another unit of blood transfusion. Has been non-oliguric. Review of Systems Review of Systems: All systems reviewed & are unremarkable except as noted in HPI & below Physical Exam Constitutional: + ill appearing; no acute distress Respiratory: no respiratory distress Auscultation: + diminished lung sounds Cardiovascular: RRR, no murmur, no edema Neurologic: moves all extremities and awake; not confused Psychiatric: A+Ox3, euthymic affect Results & Data Vital Signs (Past 12 Hours) Vital Signs Temp Pulse Pulse Resp BP BP Pulse Ox 05/28/19 12:21 36.7 C 64 18 176/72 H 05/28/19 11:47 36.8 C 64 18 145/76 H 98 05/28/19 10:45 36.8 C 62 18 153/73 H 94 05/28/19 10:14 36.4 C L 66 16 117/53 L 97 12/07/19 10:00 36.8 C 69 18 129/63 98 05/28/19 09:44 36.6 C 78 18 136/70 05/28/19 09:18 37.0 C 78 18 147/74 H 97 05/28/19 07:35 36.5 C 60 18 173/69 H 95 PG Care Time/CCT Total # of Minutes Spent Total Time Spent with Patient: Total time spent is greater than 50% in coordination of care (as documented) at patient's floor/unit and/or counseling patient:
[2019-05-28] MEDS ORDERED: GLUCAGON FOR INJ 1 MG VIAL SQ PRN (14:15)
[2019-05-28] MEDS ORDERED: CARBOHYDRATES FOR HYPOGLYCEMIA PO PRN (14:15)
[2019-05-28] MEDS ORDERED: DEXTROSE 50% 50 ML SYRINGE IV PRN (14:15)
[2019-05-28] MEDS ORDERED: GLUCOSE 10 TABS/TUBE PO PRN (14:15)
[2019-05-28] MEDS ORDERED: GLUCOSE 40% GEL 15 GM TUBE PO PRN (14:15)
[2019-05-28 16:07] LABS: Hematocrit (blood only) 24.8 % (42-52); Hemoglobin 8.7 g/dL (14.0-18.0); Mean Corpuscular Hemoglobin 30.1 pg (25-34); Mean Corpuscular Hgb Conc 35.1 g/dL (32-36); Mean Corpuscular Volume 85.8 fL (80-100); Mean Platelet Volume 9.6 fL (7.4-10.4); Platelet Count 245 K/uL (130-400); RDW Coefficient of Variation 15.1 % (11.5-14.5); Red Blood Count 2.89 M/uL (4.7-6.1); White Blood Count 10.36 K/uL (4.8-10.8)
[2019-05-28] MEDS: INSULIN ASPART 100 UNITS/ML 3 ML PEN SC SCH ×2 (19:22→21:05)
[2019-05-28] MEDS: FLUVOXAMINE MALEATE 50 MG TAB PO SCH (21:00)
[2019-05-28] MEDS: GABAPENTIN 100 MG CAP PO SCH (21:00)
[2019-05-29] MEDS ORDERED: Nursing to Pharmacy Communication ONE ×2 (03:05→10:15)
[2019-05-29 05:54] LABS: Albumin Level 1.5 gm/dl (3.4-5.0); BUN Creatinine Ratio 19.8 (10-20); Calcium 7.9 mg/dl (8.5-10.1); Est GFR (African American) 26.4; Est GFR (Non-African American) 22.8; Phosphorus 3.1 mg/dl (2.5-4.9); Potassium 4.4 mmol/L (3.5-5.1)
[2019-05-29] MEDS ORDERED: INSULIN ASPART 100 UNITS/ML 3 ML PEN SC SCH (06:00)
--- NOTE | 2019-05-29 08:03 | History & Physical Report ---
Date of Service May 29, 2019 History of Present Illness Chief Complaint: GI bleed, anemia Primary Care Provider: Jovany Stephenson MD For EGD Allergies Allergy/AdvReac Type Severity Reaction Status Date / Time latex Allergy Unknown LOCAL SKIN Verified 05/14/19 17:23 IRRITATION lisinopril Allergy Unknown hyperkalemi Verified 05/14/19 17:23 a sulfamethoxazole AdvReac increases Verified 05/14/19 17:23 [From Bactrim] potassium trimethoprim [From Bactrim] AdvReac increases Verified 05/14/19 17:23 potassium Home Medications Home Medications Medication Instructions Recorded Confirmed Type ascorbic acid (vitamin C) 1,000 mg PO QAM 10/08/18 05/14/19 History garlic 1,000 mg PO QAM 10/08/18 05/14/19 History multivitamin 1 tab PO QAM 10/08/18 05/14/19 History pravastatin 10 mg PO QAM 10/08/18 05/14/19 History febuxostat [Uloric] 40 mg PO QAM 12/14/18 05/14/19 History cholecalciferol (vitamin D3) 25 1,000 units PO QAM 01/17/19 05/14/19 History mcg (1,000 unit) capsule fluvoxamine 100 mg PO HS 03/03/19 05/14/19 History apixaban 5 mg tablet 5 mg PO BID #180 tab 04/06/19 05/14/19 Rx ipratropium bromide 42 mcg (0.06 2 spray INTRANASAL BID #15 ml 04/07/19 05/14/19 Rx %) nasal spray aspirin 81 mg tablet,delayed 81 mg PO QAM 04/27/19 05/14/19 History release metoprolol tartrate 25 mg tablet 12.5 mg PO AMPM tab 04/27/19 05/14/19 History cefuroxime axetil 500 mg tablet 500 mg PO BID #20 tab 05/13/19 05/14/19 Rx amlodipine 5 mg PO QAM 05/14/19 05/14/19 History famotidine 40 mg PO QAM 05/14/19 05/14/19 History gabapentin See Rx Instructions mg PO 05/14/19 05/14/19 History DIRECTED glipizide 5 mg PO QAM 05/14/19 05/14/19 History lisinopril 5 mg PO QAM 05/14/19 05/14/19 History omega-3 fatty acids-fish oil [Fish 2,400 cap PO QAM 05/14/19 05/14/19 History Oil] plant stanol amarjit [Cholest Off] 0 mg PO BID 05/14/19 05/14/19 History torsemide 10 mg PO QAM 05/14/19 05/14/19 History vit C,E-Yb-zukvm-lutein-zeaxan 1 tab PO BID 05/14/19 05/14/19 History [PreserVision AREDS-2] Past Med/Surg History Medical History Adrenal nodule Afib Arthritis Asymptomatic cholelithiasis Cataracts, both eyes RIGHT EYE BEING DONE FIRST Chronic kidney disease, stage III (moderate) Coronary arteriosclerosis Diabetes Diastolic dysfunction GERD (gastroesophageal reflux disease) High cholesterol History of stress test 2009 [place] D/T PASSED OUT WENT TO [facility]. 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 Hx of fall 09/2018 - SEEN IN ED - HAD CT OF HEAD - NEGATIVE Mitral regurgitation Normal pressure hydrocephalus Peripheral artery disease LEFT LEG Renal insufficiency Thrombocytopenia Surgical History History of back surgery L3-L4 History of left hip replacement History of parathyroidectomy (Resolved) PARTIAL History of right hip replacement X2 Hx of hernia repair Family History Father Myocardial infarction Mother Gout CHF (congestive heart failure) Social History Preferred Language: Romansh Communication Ability: Unable Administrative Services Specialist Required: No Beliefs That Will Affect Care: None Current Living Situation: Spouse Feels Safe at Home: Yes Smoking Status: Former smoker Tobacco Type: cigarettes ; Second Hand Exposure: No ; Hx Alcohol Use: No Hx Substance Use: No Physical Exam Constitutional: + ill appearing Respiratory: normal respiratory effort Cardiovascular: Rate/Rhythm: regular rate and regular rhythm Gastrointestinal (Abdomen): Percussion/Palpation: abdomen soft Results & Data Vital Signs (Past 12 Hours) Vital Signs Temp Pulse Resp BP Pulse Ox 05/29/19 07:43 37.0 C 83 16 167/75 H 97 05/28/19 23:14 36.5 C 77 16 162/77 H 95 Code Status & VTE Plan VTE Prophylaxis Plan VTE Prophylaxis will be ordered: Yes
[2019-05-29] MEDS: IPRATROPIUM BROMIDE NASAL SPRAY 0.06% 15ML NAE SCH ×2 (08:24→20:34)
[2019-05-29] MEDS: METOPROLOL TARTRATE 25 MG TAB PO SCH ×3 (08:24→20:53)
[2019-05-29] MEDS: POLYETHYLENE (MIRALAX) 17 GM PACK PO SCH (08:24)
[2019-05-29] MEDS: FAMOTIDINE 20 MG TAB PO SCH ×2 (08:24→10:12)
[2019-05-29] MEDS: DOCUSATE SODIUM 100 MG CAP PO SCH ×2 (08:24→20:51)
[2019-05-29] MEDS: AMOXICILLIN/CLAVULANATE 500 MG TAB PO SCH ×2 (08:24→10:13)
[2019-05-29] MEDS: PANTOprazole 40 MG in SYRINGE 0 ML IV SCH ×2 (08:25→20:54)
[2019-05-29] MEDS: PRAVASTATIN SOD 10 MG TAB PO SCH ×2 (08:25→10:13)
--- NOTE | 2019-05-29 08:38 | Anesthesiology Consultation ---
Date of Service May 29, 2019 Assessment & Plan (1) Encounter for pre-operative examination: Chart Review Chart Review: Acceptable Risk for Surgery and Patient NOT seen in Pre Admission Testing Consults Requested none History Surgery Operation Date: 05/14/19 19:00 Proposed Procedures p Inguinal Hernia Repair(Right) - Matheus Pham MD Operation Date: 05/24/19 09:50 Proposed Procedures p Perm Catheter Insertion - Alex Emmanuel MD Operation Date: 05/29/19 09:00 Proposed Procedures p EGD Foreign Body Removal - Smith Leon Height/Weight Height: 6 ft 1 in Weight: 110.2 kg Allergies Allergy/AdvReac Type Severity Reaction Status Date / Time latex Allergy Unknown LOCAL SKIN Verified 05/14/19 17:23 IRRITATION lisinopril Allergy Unknown hyperkalemi Verified 05/14/19 17:23 a sulfamethoxazole AdvReac increases Verified 05/14/19 17:23 [From Bactrim] potassium trimethoprim [From Bactrim] AdvReac increases Verified 05/14/19 17:23 potassium Medications Home Medications Medication Instructions Recorded Confirmed Last Taken ascorbic acid (vitamin C) 1,000 mg PO QAM 10/08/18 05/14/19 03/02/19 garlic 1,000 mg PO QAM 10/08/18 05/14/19 03/02/19 multivitamin 1 tab PO QAM 10/08/18 05/14/19 03/02/19 pravastatin 10 mg PO QAM 10/08/18 05/14/19 03/02/19 febuxostat [Uloric] 40 mg PO QAM 12/14/18 05/14/19 03/02/19 cholecalciferol (vitamin D3) 25 1,000 units PO QAM 01/17/19 05/14/19 03/03/19 mcg (1,000 unit) capsule fluvoxamine 100 mg PO HS 03/03/19 05/14/19 03/02/19 apixaban 5 mg tablet 5 mg PO BID #180 tab 04/06/19 05/14/19 Unknown ipratropium bromide 42 mcg (0.06 2 spray INTRANASAL BID #15 ml 04/07/19 05/14/19 Unknown %) nasal spray aspirin 81 mg tablet,delayed 81 mg PO QAM 04/27/19 05/14/19 Unknown release metoprolol tartrate 25 mg tablet 12.5 mg PO AMPM tab 04/27/19 05/14/19 Unknown cefuroxime axetil 500 mg tablet 500 mg PO BID #20 tab 05/13/19 05/14/19 Unknown amlodipine 5 mg PO QAM 05/14/19 05/14/19 Unknown famotidine 40 mg PO QAM 05/14/19 05/14/19 Unknown gabapentin See Rx Instructions mg PO 05/14/19 05/14/19 Unknown DIRECTED glipizide 5 mg PO QAM 05/14/19 05/14/19 Unknown lisinopril 5 mg PO QAM 05/14/19 05/14/19 Unknown omega-3 fatty acids-fish oil [Fish 2,400 cap PO QAM 05/14/19 05/14/19 Unknown Oil] plant stanol amarjit [Cholest Off] 0 mg PO BID 05/14/19 05/14/19 Unknown torsemide 10 mg PO QAM 05/14/19 05/14/19 Unknown vit C,T-Et-upnhl-lutein-zeaxan 1 tab PO BID 05/14/19 05/14/19 Unknown [PreserVision AREDS-2] Active Medications Generic Name Dose Route Start Last Admin Trade Name Freq PRN Reason Stop Dose Admin Amoxicillin/Clavulanate Potassium 1 tab 05/28/19 09:00 05/29/19 08:24 Augmentin 500mg PO 05/31/19 23:59 Not Given DAILY CHAPIN Protocol Apixaban 2.5 mg 05/24/19 10:15 05/27/19 21:22 Eliquis PO 06/23/19 10:14 2.5 mg BID CHAPIN Administration Docusate Sodium 100 mg 05/27/19 21:15 05/29/19 08:24 Colace PO 06/26/19 21:14 Not Given BID CHAPIN Famotidine 20 mg 05/26/19 09:00 05/29/19 08:24 Pepcid PO 06/25/19 08:59 Not Given QAM CHAPIN Fluvoxamine Maleate 100 mg 05/20/19 21:00 05/28/19 21:00 Luvox PO 06/19/19 20:59 100 mg HS CHAPIN Administration Gabapentin 100 mg 05/20/19 21:00 05/28/19 21:00 Neurontin PO 06/19/19 20:59 100 mg HS CHAPIN Administration Heparin Sodium (Beef Lung) 5 ml 05/21/19 17:02 05/21/19 20:55 Heparin Sod 10 Unit/Ml Flush FLUSH 06/20/19 17:01 5 ml PRN PRN Administration Flush Pantoprazole Sodium 40 mg/ 10 mls @ 5 mls/min 05/28/19 09:00 05/29/19 08:25 Syringe IV 06/27/19 08:59 Not Given BID@0900,2100 CHAPIN Insulin Aspart 0 units 05/29/19 06:00 05/29/19 06:22 Novolog Flexpen SC 06/28/19 05:59 1 units Q6 CHAPIN Administration Ipratropium [place] 2 sprays 05/26/19 12:00 05/29/19 08:24 Atrovent Nasal [place] 0.06% SUNNY 06/25/19 11:59 Not Given BID CHAPIN Metoprolol Tartrate 12.5 mg 05/20/19 16:30 05/29/19 08:24 Lopressor PO 06/19/19 16:29 Not Given BID CHAPIN Olanzapine 5 mg 05/20/19 14:09 05/24/19 16:00 Zyprexa PO 06/18/19 09:14 5 mg HS PRN Administration Agitation Polyethylene Glycol 17 gm 05/28/19 09:00 05/29/19 08:24 Miralax Powder Packet PO 06/27/19 08:59 Not Given DAILY CHAPIN Pravastatin Sodium 10 mg 05/26/19 09:00 05/29/19 08:25 Pravachol PO 06/25/19 08:59 Not Given QAM CHAPIN NPO Date Last Intake of Fluids: 05/23/19 Time Last Intake of Fluids: 14:00 Date Last Intake of Solids: 05/23/19 Time Last Intake of Solids: 14:00 Past Medical History Medical History (Updated 05/29/19 @ 08:38 by Pavan Tamayo MD) Adrenal nodule Afib Arthritis Aspiration into airway Asymptomatic cholelithiasis Cataracts, both eyes RIGHT EYE BEING DONE FIRST Chronic kidney disease, stage III (moderate) Coronary arteriosclerosis Diabetes Diastolic dysfunction GERD (gastroesophageal reflux disease) High cholesterol History of stress test 2009 [place] D/T PASSED OUT WENT TO [facility]. 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 Hx of fall 09/2018 - SEEN IN ED - HAD CT OF HEAD - NEGATIVE Mitral regurgitation Normal pressure hydrocephalus Peripheral artery disease LEFT LEG Renal insufficiency Thrombocytopenia Past Family History Family History Father Myocardial infarction Mother Gout CHF (congestive heart failure) Past Surgical History Surgical History History of back surgery L3-L4 History of left hip replacement History of parathyroidectomy (Resolved) PARTIAL History of right hip replacement X2 Hx of hernia repair Social History Smoking Status: Former smoker tobacco type: cigarettes Do You Dip or Chew Tobacco: No Smoking End Date: 1984 Hx Alcohol Use: No Hx Substance Use: No substance use type: does not use Physical Exam Vital Signs Last Vital Signs Temp 37.0 C 05/29/19 07:43 Pulse 83 05/29/19 07:43 Resp 16 05/29/19 07:43 BP 167/75 H 05/29/19 07:43 Pulse Ox 97 05/29/19 07:43 Testing Laboratory Results 05/28/19 15:58 05/29/19 04:36 PT 11.5 Seconds (9.0-12.0) 05/18/19 04:40 INR 1.1 (0.9-1.1) 05/18/19 04:40 APTT 33.3 Seconds (21.0-31.0) H 05/18/19 04:40 Urine Color Dark Yellow 05/15/19 09:20 Urine Appearance Turbid (Clear) A 05/15/19 09:20 Urine pH 5.0 (4.5-7.5) 05/15/19 09:20 Ur Specific [place] 1.023 (1.000-1.030) 05/15/19 09:20 Urine Protein 2+ (Negative) H 05/15/19 09:20 Urine Glucose (UA) Negative (Negative) 05/15/19 09:20 Urine Ketones Trace (Negative) H 05/15/19 09:20 Urine Nitrite Negative (Negative) 05/15/19 09:20 Ur Leukocyte Esterase 1+ (Negative) H 05/15/19 09:20 Urine WBC (Auto) 5-10 /hpf (0-5) H 05/15/19 09:20 Urine RBC (Auto) >30 /hpf (0-4) H 05/15/19 09:20 U Hyaline Cast (Auto) 1-5 /lpf (0-5) 05/15/19 09:20 U Epithel Cells (Auto) 20-30 /lpf (0-5) H 05/15/19 09:20 Urine Bacteria (Auto) Negative (Negative) 05/15/19 09:20 Blood Type B Positive 05/27/19 09:08 Antibody Screen NEGATIVE 05/27/19 09:08 05/18/19 04:40 Aerobic Blood Culture - Final Blood No growth in Aerobic bottle after 5 days. Anaerobic Blood Culture - Final No growth in Anaerobic bottle after 5 days. 05/18/19 04:56 Aerobic Blood Culture - Final Blood No growth in Aerobic bottle after 5 days. Anaerobic Blood Culture - Final No growth in Anaerobic bottle after 5 days. 05/16/19 04:47 Aerobic Blood Culture - Final Blood Citrobacter koseri Anaerobic Blood Culture - Final No growth in Anaerobic bottle after 5 days. 05/15/19 04:28 Aerobic Blood Culture - Final Blood Citrobacter koseri Anaerobic Blood Culture - Final No growth in Anaerobic bottle after 5 days. 05/16/19 05:01 Aerobic Blood Culture - Final Blood No growth in Aerobic bottle after 5 days. Anaerobic Blood Culture - Final No growth in Anaerobic bottle after 5 days. 05/15/19 04:56 Aerobic Blood Culture - Final Blood No growth in Aerobic bottle after 5 days. Anaerobic Blood Culture - Final No growth in Anaerobic bottle after 5 days. 05/15/19 09:20 Urine Culture - Final Urine,Straight Cath No growth - less than 1,000 colonies/mL. 05/29/19 05/28/19 06:05 20:38 POC Glucose 158 H 172 H Electrocardiogram Date: 03/04/19 Findings: + RBBB and + T wave inversion (lateral ischemia) Afib, rate 52, Chest X-Ray Date: 05/14/19 SINGLE VIEW CHEST CLINICAL HISTORY: Dyspnea. FINDINGS: An AP, portable, upright chest radiograph is compared to study dated 03/03/2019. The examination is degraded by portable technique and patient rotation. The heart is enlarged noting atherosclerotic calcification of the t horacic aorta. The pulmonary vasculature is noncongested. Chronic elevation of left hemidiaphragm is similar to previous. There is bibasilar airspace consolidation, left greater than right. Airspace opacities are also seen in the right midlung. No large pleural effusion or pneumothorax is seen. The skeletal structures are osteopenic. The bony thorax is grossly intact. IMPRESSION: 1. There is bibasilar airspace consolidation, left greater than right. Correlate clinically for evidence of pneumonia/aspiration pneumonitis. Radiographic follow-up to resolution is recommended. 2. Cardiomegaly without radiographic evidence of congestive failure Electronically signed by: Tio Cole M.D. 05/14/2019 5:04 PM Dictated: 05/14/191701 Transcribed: 05/14/191701 Echocardiogram Date: 03/03/19 EF: 55-60 Other Findings: + atrial enlargement (bilateral) Valvular Disease: + MR (moderate) elevated RVSP Stress Test Date: 04/05/19 Findings: + WNL Resting EF: 67
[2019-05-29] MEDS ORDERED: ePHEDrine sulfate 50 MG/ML AMP IV PRN (08:43)
[2019-05-29] MEDS ORDERED: LABETALOL HCL IV 5 MG/ML 20ML IV PRN (08:43)
[2019-05-29] MEDS ORDERED: ATROPINE SULFATE 0.1 MG/ML 10ML SYR IV PRN (08:43)
[2019-05-29] MEDS ORDERED: PHENYLEPHRINE 100MCG/ML 5ML SYR IV PRN (08:43)
[2019-05-29] MEDS ORDERED: ONDANSETRON INJ 2 MG/ML 2 ML VIAL IV PRN (08:43)
--- NOTE | 2019-05-29 09:24 | GI REPORT ---
Patient Name: Marco A Haddad Procedure Date: 05/29/2019 8:44 AM Date of : 1940 Admit Type: Inpatient Age: 78 Gender: Male Attending MD: Smith Leon MD Procedure: Upper GI endoscopy Providers: Smith Leon MD Referring MD: Karen Dumas Md Indications: Acute post hemorrhagic anemia, Melena Medicines: Propofol total dose 110 mg IV, Lidocaine 80 mg IV Complications: No immediate complications. Estimated Blood Loss: Estimated blood loss: none. Procedure: Pre-Anesthesia Assessment: - Prior to the procedure, a History and Physical was performed, and patient medications, allergies and sensitivities were reviewed. The patient's tolerance of previous anesthesia was reviewed. - The risks and benefits of the procedure and the sedation options and risks were discussed with the patient. All questions were answered and informed consent was obtained. After obtaining informed consent, the endoscope was passed under direct vision. Throughout the procedure, the patient's blood pressure, pulse, and oxygen saturations were monitored continuously. The Endoscope was introduced through the mouth, and advanced to the second part of duodenum. The upper GI endoscopy was accomplished without difficulty. The patient tolerated the procedure well. Findings: The Z-line was regular and was found 43 cm from the incisors. The examined esophagus was normal. A small amount of food (residue) was found in the gastric body. A single 15 mm pedunculated polyp with no bleeding was found in the second portion of the duodenum. Area was successfully injected with 3 mL of a 1:10,000 solution of epinephrine for drug delivery. Estimated blood loss: none. There is a clot on the tip of the submucosal polyp. Impression: - Z-line regular, 43 cm from the incisors. - Normal esophagus. - A small amount of food (residue) in the stomach. - A single duodenal polyp. Injected. - No specimens collected. Recommendation: - [facility] for [facility] care. Smith Leon M.D. Smith Leon MD 05/29/2019 9:23:51 AM This report has been signed electronically. Note Initiated On: 05/29/2019 8:44 AM Number of Addenda: 0 I attest to the content of the Intraoperative Record and orders documented therein, exceptions below {[id number]}
[2019-05-29] MEDS ORDERED: PROPOFOL IV EMULSION 10 MG/ML 20 ML VIAL IV ONE (09:34)
[2019-05-29] MEDS ORDERED: LIDOCAINE HCL 2% 2 ML VIAL/AMP(20MG/ML) INFIL ONE (09:34)
--- NOTE | 2019-05-29 09:54 | Anesthesiology Progress Note ---
Date of Service May 29, 2019 Anesthesia Post Procedure Vital Signs Vital Signs: Temp Pulse Pulse Pulse Resp BP BP 05/29/19 09:40 36.5 C 88 20 159/46 H 05/29/19 09:30 89 20 160/55 H 05/29/19 09:23 36.5 C 91 H 17 132/53 L 05/29/19 07:43 37.0 C 83 16 05/28/19 23:14 36.5 C 77 16 05/28/19 15:37 37.2 C 69 16 158/66 H 05/28/19 15:18 36.9 C 70 16 05/28/19 14:24 36.8 C 66 16 165/66 H 05/28/19 13:51 36.5 C 64 16 165/69 H 05/28/19 13:24 37.1 C 63 20 165/70 H 05/28/19 12:54 37.0 C 68 16 164/77 H 05/28/19 12:39 36.8 C 78 18 150/82 H 05/28/19 12:21 36.7 C 64 18 176/72 H 05/28/19 11:47 36.8 C 64 18 145/76 H 05/28/19 10:45 36.8 C 62 18 153/73 H 05/28/19 10:14 36.4 C L 66 16 117/53 L 05/28/19 10:00 36.8 C 69 18 129/63 BP Pulse Ox 05/29/19 09:40 96 05/29/19 09:30 100 05/29/19 09:23 98 05/29/19 07:43 167/75 H 97 05/28/19 23:14 162/77 H 95 05/28/19 15:37 99 05/28/19 15:18 163/69 H 96 05/28/19 14:24 96 05/28/19 13:51 97 05/28/19 13:24 99 05/28/19 12:54 98 05/28/19 12:39 97 05/28/19 12:21 05/28/19 11:47 98 05/28/19 10:45 94 05/28/19 10:14 97 05/28/19 10:00 98 Transfer of Care Handoff Completed per policy Notes Mental Status: alert / awake / arousable Patient Amnestic to Procedure: Yes Nausea / Vomiting: adequately controlled Pain: adequately controlled Airway Patency, RR, SpO2: stable & adequate BP & HR: stable & adequate Hydration State: stable & adequate Anesthetic Complications: no major complications apparent and Pt Satisfied with anesthetic care Notes: The patient did well with the procedure. He is awake and his vitals are stable in PACU. He was noted to have some melena in PACU. Dr. Leon came to evaluate the patient and stated that this is to be expected due to a bleeding polyp that he injected with epinephrine.
--- NOTE | 2019-05-29 10:02 | Progress Note ---
DATE: 05/29/2019 The patient underwent an EGD today for melena and anemia. The patient was found to have what appears to be a submucosal lesion in the second portion of the duodenum that had an adherent clot on the tip. There was no active bleeding at the time. There was little bit of residual food in the stomach, but the esophagus and stomach are otherwise completely normal. The protruding lesion appeared to be possible submucosal lipoma, although I could not determine that completely with any reliability, but I did inject the lesion with 3 mL of epinephrine to hopefully reduce the risk for further bleeding. IMPRESSION: The patient has a protruding submucosal lesion in the second portion of the duodenum with an adherent clot on the tip. This is at high risk for rebleeding. It was injected with epinephrine to help reduce that risk, but I think the patient would probably benefit from advanced endoscopic evaluation [facility].
[2019-05-29 10:13] LABS: Hematocrit (blood only) 21.4 % (42-52); Hemoglobin 7.3 g/dL (14.0-18.0); Mean Corpuscular Hemoglobin 29.8 pg (25-34); Mean Corpuscular Hgb Conc 34.1 g/dL (32-36); Mean Corpuscular Volume 87.3 fL (80-100); Mean Platelet Volume 9.3 fL (7.4-10.4); Platelet Count 244 K/uL (130-400); RDW Standard Deviation 47.7 fL (36.4-46.3); Red Blood Count 2.45 M/uL (4.7-6.1); White Blood Count 10.07 K/uL (4.8-10.8)
--- NOTE | 2019-05-29 11:14 | Nephrology Progress Note ---
Date of Service May 29, 2019 Assessment & Plan (1) Acute kidney injury: DAVEY on CKD, in the setting of incarcerated hernia. Baseline creatinine 2.1 mg/dL. Clinical presentation consistent with ATN. CT did not demonstrate obstruction. UA with RBC/WBCs and protein in setting of Toribio catheter. Started on dialysis on 05/16/2019 for anuric acute kidney injury, hyperkalemia and metabolic acidosis. Had dialysis yesterday and currently scheduled for Thursday dialysis as an outpatient. Currently electrolyte and volume status acceptable. Hemoglobin dropped to 6.2 which improved to 8.7 after 3 units of blood transfusion. EGD this morning showed duodenal polyp but no active bleeding. Last dialysis Thursday, creatinine slightly increased to 2.6 this morning, electrolyte acceptable and urine output has been improving. -start on Bumex 1 milligram daily --monitor renal function electrolyte, urine output and volume status and tentatively planned for dialysis Thursday. --BP and volume status are acceptable --Repeat metabolic profile and H/H tomorrow AM (2) Chronic kidney disease, stage III (moderate): --Baseline Cr 2.1 (3) Incarcerated inguinal hernia: --s/p operative repair strangulated R inguinal hernia 05/14 --Blood cultures + Pansensitive Citrobacter: now cleared --Remains on IV Unasyn. Dosing as per vice president pharmacy: dosing for renal failure on MWF IHD Susu Scott was seen and examined in his room this morning. Was just back from EGD, which did not show any active bleeding. Hemoglobin already improved to 8.7. Had dialysis Thursday, creatinine has been slightly increasing since last dialysis although electrolyte remain acceptable, volume status acceptable. Urine output seems to be improving, almost 400 mL over last 24 hours. Review of Systems Review of Systems: All systems reviewed & are unremarkable except as noted in HPI & below Physical Exam Constitutional: + ill appearing; no acute distress Respiratory: no respiratory distress Auscultation: + diminished lung sounds Cardiovascular: RRR, no murmur, no edema Neurologic: moves all extremities and awake; not confused Psychiatric: A+Ox3, euthymic affect Results & Data Vital Signs (Past 12 Hours) Vital Signs Temp Pulse Pulse Resp BP BP Pulse Ox 05/29/19 10:35 80 18 176/69 H 94 05/29/19 10:06 37.1 C 78 18 142/72 H 97 05/29/19 09:40 36.5 C 88 20 159/46 H 96 05/29/19 09:30 89 20 160/55 H 100 05/29/19 09:23 36.5 C 91 H 17 132/53 L 98 05/29/19 07:43 37.0 C 83 16 167/75 H 97 05/28/19 23:14 36.5 C 77 16 162/77 H 95 PG Care Time/CCT Total # of Minutes Spent Total Time Spent with Patient: Total time spent is greater than 50% in coordination of care (as documented) at patient's floor/unit and/or counseling patient:
[2019-05-29] MEDS ORDERED: SODIUM CHLORIDE 0.9% 250 ML IV PRN (11:40)
[2019-05-29] MEDS: INSULIN ASPART 100 UNITS/ML 3 ML PEN SC SCH ×3 (13:37→20:39)
[2019-05-29] MEDS: FLUVOXAMINE MALEATE 50 MG TAB PO SCH (20:53)
[2019-05-29] MEDS: GABAPENTIN 100 MG CAP PO SCH (20:53)
--- NOTE | 2019-05-29 21:07 | Hospitalist Progress Note ---
Date of Service May 29, 2019 Assessment & Plan (1) SBO (small bowel obstruction): Secondary to strangulated right inguinal hernia. POD #16 s/p reduction of incarcerated right inguinal hernia, small bowel resection (necrotic small bowel within the hernia sac) Having BMs now with melena NG tube removed on 05/20 Is now advanced to low fiber diet and tolerating well, however now with GI bleed as below Appreciate surgery management -Needs continued ambulation/PT -has had staple removal, wound looks good -No lifting over 20 pounds for 6 to 8 weeks, he can shower and will have them follow-up with him after discharge (2) Melena: Large black liquid stool on 05/28 with drop in hemoglobin EGD 05/29 with polyp in duodenum possibly submucosal lipoma with adherent clot to the tip, injected with epi as per GI GI believes high risk to rebleed and should have polyp removed endoscopically at tertiary care center in case of need for IR if rebleeds Remains Hemodynamically stable -cont IV Protonix 40 mg twice daily -continue to hold Eliquis -Continue to hold aspirin -GI consult appreciated After much discussion with patient and family throughout the day on Tuesday 05/29, they would like to wait until Thursday for a transfer and have it done earlier in the day if possible to avoid a transfer in the evening when the patient tends to have delirium. Discussed with Dr. Elizabeth who will be taking over his case in the morning and he is aware to work on transfer Thursday AM (3) Anemia: Anemia of chronic kidney disease with superimposed acute blood loss anemia initially from surgery, multiple blood draws, prolonged hospitalization, and now with development of GI bleed on 05/28 s/p 1 unit PRBCs 05/21. Hgb then decreased again to 6.5, no obvious bleeding on 05/27--> transfused 2 units PRBCs with HD Despite recent transfusion, hemoglobin still only 7.1 on 05/28--> secondary to GI bleed as above, with witnessed melena -Transfused 2 more units PRBCs on 05/28 urgently and consulted GI as above Hgb did rise after transfusion and then back down again on 05/29 to 7.3 but no further obvious bleeding--> transfuse another 1 unit PRBCs -continue PPI as above EGD with duodenal polyp as above is likely source of bleed - iron studies show Fe deficiency, trans sat 9% -continue Epogen with dialysis -follow CBC serially -continue holding Eliquis and aspirin Plan to transfuse as needed for Hgb<7.5, watching for volume overload with need for dialysis (4) Strangulated inguinal hernia: as above, status post surgical repair -Surgery following -Dyllan now removed (5) Acute respiratory distress syndrome (ARDS): Now resolved, required mech ventilation early in course (6) Acute respiratory failure with hypoxia: Was resolved. Secondary to aspiration pneumonitis, ARDS requiring intubation and mech ventilation, and renal failure with pulm edema Was on room air and much improved, now back on some O2 via NC as developing volume overload from multiple PRBC transfusions -continue O2 as needed to keep POx>92% -may need HD on Thursday (7) Gram-negative bacteremia: Repeat blood cultures negative -final Pansensitive Citrobacter koseri blood culture positive. Suspected from ischemic bowel in strangulated hernia. -now on p.o. Augmentin renally dosed for total of 14 days of antibiotics -last date of treatment would be 05/31/2019. -discontinued IV Unasyn which was given for over a week (8) Severe sepsis with septic shock: Now resolved with renal failure requiring hemodialysis With respiratory failure requiring intubation With hypotension requiring vasopressors (9) Acute renal failure due to tubular necrosis: No hydronephrosis on admission. Presentation consistent with ATN secondary to severe sepsis. Appreciate nephrology ongoing management with ongoing diuresis I&Os. -now s/p placement of tunneled dialysis catheter 05/24 -had HD again on 05/23 and 05/25, 05/27 -outpatient HD is arranged starting 05/31, but now with pending transfer to tertiary care facility, will likely need to postpone this -renal function is actually not terrible in between HD treatments now, however remains very volume overloaded with significant LE edema -appreciate Nephrology management -d/cd Toribio, continues to be making some urine, about 400mL daily now -Nephrology added Bumex 1mg po daily on 05/29 (10) Delirium: Delirium on the background of recent sepsis and renal failure Greatly improved now, with some residual confusion mostly at nighttime Continue Zyprexa to 5 mg p.o. nightly as needed for agitation-has not used in a long time Delirium prevention strategies-good sleep-wake cycles, keeping blinds open during the daytime, redirection, supportive care, avoidance of opioids and benzodiazepines as well as antihistamines. (11) Diastolic heart failure: Fluid overload in setting of renal failure. Fluid management with hemodialysis. (12) NPH (normal pressure hydrocephalus): Suspected history of this. Missed diagnostic lumbar puncture due to current admission. - will need to delay further work-up for this until after recovery (13) Stage 3 chronic kidney disease: With acute kidney injury secondary to ATN. See treatment above. Now will be ESRD and have permanent hemodialysis (14) Atrial fibrillation: A. fib/flutter. Chronic Rates controlled on metoprolol. -now holding Eliquis as above for GI Bleed -When okay to restart Eliquis, will discuss with Pharmacy to see if should be back on his 5mg bid dosing versus 2.5 in the setting of dialysis (15) PAD (peripheral artery disease): Has known LE PAD - LT SFA, tibial disease as per cardiology notes -continue to hold Aspirin but have since restarted statin (16) Type 2 diabetes mellitus: HbA1c 5.6 in February suggests no longer needs outpatient glipizide. Likely can be d/c on discharge. Effectively no longer has this diagnosis based on current blood glucose levels and prior HbA1c. -however, will check HgbA1C in AM as having hyperglycemia here -start SSI and accuchecks qachs (17) Obstructive sleep apnea: Is considered mild and he is not on CPAP at home (18) Thrombocytopenia: Now resolved. In setting of sepsis with negative HIT labs (19) Gout: Uric acid 2.7. Dialysis will deal with this for now but may need restarted on Uloric if he comes off dialysis. (20) Hypertension: Continue metoprolol tartrate 12.5 mg p.o. twice daily Blood pressures stable to slightly elevated on current medical regimen (21) Adrenal nodule: Incidentally noted 2.3 cm right adrenal nodule and also noted nodularity of the left adrenal gland on CT -Follow as outpatient (22) Asymptomatic cholelithiasis: Noted numerous gallstones on CT the abdomen/no CBD dilatation, asymptomatic -Follow clinically (23) Constipation: Resolved and now with melena as above (24) DVT prophylaxis: SCDs. Eliquis now on hold (25) Discharge planning issues: Disposition- auth from insurance denied for [facility] acute rehab--> Family APpeal pending, however now with acute GI bleed, hold off on discharge as not medically stable and plan to transfer to tertiary care facility on Thursday Patient and Family want [facility] for transfer PT/OT tiagoals-severely weak and deconditioned but improving slightly day by day DNR/DNI Subjective I saw the patient on 4 different occasions today. When I saw him in the morning, he reported feeling well except a little bit lightheaded and "woozy" after having his EGD. He had no further melena. Denies chest pain or shortness of breath. No abdominal pains. I discussed the case with the firer diesel locomotive who found a previously bleeding polyp in the duodenum and was recommending transfer to tertiary care center for definitive management/polypectomy to prevent future bleeding Patient received 1 unit of PRBCs again today. I came back throughout the day several times to check on him and to discuss his disposition with his . After much debate, she and the patient and their children have decided that they do not want to transfer him to tertiary care facility until tomorrow as they are concerned about him getting there in the evening or nighttime hours given his . They are also concerned about financial issues with transfer and I reassured them that this would work itself out. Review of Systems Review of Systems: All systems reviewed & are unremarkable except as noted in HPI & below Physical Exam Constitutional: WD/WN, vitals as above Eyes: + anicteric sclerae ENMT: Ears: no hearing impairment Neck: trachea midline, no thyromegaly Respiratory: normal respiratory effort; no respiratory distress Auscultation: + crackles (Mild at the bases) and + bronchovesicular breath sounds (At right base); no rhonchi and no wheezes Cardiovascular: Rate/Rhythm: regular rate and + irregularly irregular Heart Sounds: no murmur Extremities: + edema (3+ pitting edema legs bilat to the thighs) and + vascular access device (Right internal jugular tunneled catheter in place) Chest (Breasts): Chest: + abnormal inspection of chest (right tunneled IJ cath in place with dressing c/d/i) Gastrointestinal (Abdomen): Inspection/Auscultation: normal bowel sounds; + abdomen abnormal to inspection (Right inguinal region and suprapubic region with dyllan now removed from incision) and abdomen not distended Percussion/Palpation: abdomen soft Musculoskeletal: Extremities: no cyanosis and no clubbing Skin: no rashes, warm and dry Neurologic: moves all extremities and awake; no focal motor deficits Psychiatric: Orientation: alert, oriented to person, oriented to place and cooperative Eye Contact: good eye contact Affect: euthymic affect Cognition: recent memory grossly intact Results & Data Vital Signs (Past 12 Hours) Vital Signs Temp Pulse Pulse Pulse Resp BP BP 05/29/19 16:28 37.1 C 67 16 05/29/19 14:03 36.6 C 64 18 152/58 H 05/29/19 13:32 36.8 C 66 148/62 H 05/29/19 13:00 36.9 C 63 18 137/72 05/29/19 12:45 36.8 C 60 18 136/64 05/29/19 12:21 36.6 C 56 L 16 157/73 H 05/29/19 12:00 63 16 05/29/19 11:05 77 18 05/29/19 10:35 80 18 05/29/19 10:06 37.1 C 78 18 05/29/19 09:40 36.5 C 88 20 159/46 H 05/29/19 09:30 89 20 160/55 H 05/29/19 09:23 36.5 C 91 H 17 132/53 L BP Pulse Ox 05/29/19 16:28 153/73 H 93 05/29/19 14:03 05/29/19 13:32 99 05/29/19 13:00 05/29/19 12:45 93 05/29/19 12:21 100 05/29/19 12:00 160/72 H 100 05/29/19 11:05 150/72 H 99 05/29/19 10:35 176/69 H 94 05/29/19 10:06 142/72 H 97 05/29/19 09:40 96 05/29/19 09:30 100 05/29/19 09:23 98 Laboratory Results 05/29/19 05/29/19 05/29/19 Range/Units 20:33 17:20 12:13 WBC (4.8-10.8) K/uL RBC (4.7-6.1) M/uL Hgb (14.0-18.0) g/dL Hct (42-52) % MCV (80-100) fL MCH (25-34) pg MCHC (32-36) g/dL RDW Std Deviation (36.4-46.3) fL RDW Coeff of Ekta (11.5-14.5) % Plt Count (130-400) K/uL MPV (7.4-10.4) fL POC Glucose 174 H 139 H 160 H (70-99) Blood Type Antibody Screen Crossmatch 05/29/19 05/29/19 05/27/19 Range/Units 09:56 09:26 09:08 WBC 10.07 (4.8-10.8) K/uL RBC 2.45 L (4.7-6.1) M/uL Hgb 7.3 L (14.0-18.0) g/dL Hct 21.4 L (42-52) % MCV 87.3 (80-100) fL MCH 29.8 (25-34) pg MCHC 34.1 (32-36) g/dL RDW Std Deviation 47.7 H (36.4-46.3) fL RDW Coeff of Ekta 15.0 H (11.5-14.5) % Plt Count 244 (130-400) K/uL MPV 9.3 (7.4-10.4) fL POC Glucose 188 H (70-99) Blood Type B Positive Antibody Screen NEGATIVE Crossmatch See Detail PG Care Time/CCT Total # of Minutes Spent Total Time Spent with Patient: Total time spent is greater than 50% in coordination of care (as documented) at patient's floor/unit and/or counseling patient: Prolonged Care Time Prolonged Care Time: Yes Total Prolonged Care Time: 60 60 min extra spent in taking care of this patient with multiple visits, discussion with specialists, coordinating care, reviewing lab tests, talking to patient and family (1) Gout Chronicity: chronic Gout etiology: unspecified cause Gout site: unspecified site Presence of tophus: without tophus Qualified Code(s): M1A.9XX0 - Chronic gout, unspecified, without tophus (tophi) (2) Type 2 diabetes mellitus Chronic kidney disease stage: stage 3 (moderate) Diabetes mellitus complication detail: with chronic kidney disease Diabetes mellitus complication status: with kidney complications Diabetes mellitus termite exterminator insulin use: without senior living use Qualified Code(s): E11.22 - Type 2 diabetes mellitus with diabetic chronic kidney disease; N18.3 - Chronic kidney disease, stage 3 (moderate) (3) Anemia Anemia type: unspecified type Qualified Code(s): D64.9 - Anemia, unspecified (4) Atrial fibrillation Atrial fibrillation type: paroxysmal Qualified Code(s): I48.0 - Paroxysmal atrial fibrillation (5) Diastolic heart failure Heart failure chronicity: chronic Qualified Code(s): I50.32 - Chronic diastolic (congestive) heart failure (6) Hypertension Hypertension type: essential hypertension Qualified Code(s): I10 - Essential (primary) hypertension
[2019-05-30 06:32] LABS: Estimated Average Glucose 114 mg/dl; Hemoglobin A1C 5.6 % (4.5-5.6)
[2019-05-30 06:44] LABS: Basophils # (auto) 0.03 K/uL (0-0.2); Basophils % (auto) 0.4 %; Eosinophils # (auto) 0.14 K/uL (0-0.5); Eosinophils % (auto) 1.7 %; Hematocrit (blood only) 21.4 % (42-52); Hemoglobin 7.3 g/dL (14.0-18.0); Immature Granulocytes # (auto) 0.02 K/uL (0.00-0.02); Immature Granulocytes % (auto) 0.2 %; Lymphocytes % (auto) 22.6 %; Mean Corpuscular Hgb Conc 34.1 g/dL (32-36); Mean Corpuscular Volume 88.1 fL (80-100); Mean Platelet Volume 9.1 fL (7.4-10.4); Monocytes % (auto) 8.3 %; Neutrophils % (auto) 66.8 %; Platelet Count 237 K/uL (130-400); RDW Standard Deviation 48.3 fL (36.4-46.3); Red Blood Count 2.43 M/uL (4.7-6.1); White Blood Count 8.39 K/uL (4.8-10.8)
[2019-05-30 07:13] LABS: RBC Morphology Unremarkable
[2019-05-30 07:22] LABS: Albumin Level 1.5 gm/dl (3.4-5.0); BUN Creatinine Ratio 21.9 (10-20); Calcium 7.6 mg/dl (8.5-10.1); Est GFR (African American) 23.8; Est GFR (Non-African American) 20.5; Magnesium 1.6 mg/dl (1.8-2.4); Potassium 4.3 mmol/L (3.5-5.1)
[2019-05-30 07:23] LABS: Phosphorus 3.6 mg/dl (2.5-4.9)
--- NOTE | 2019-05-30 07:51 | Anesthesiology Progress Note ---
Date of Service May 30, 2019 Anesthesia Post Procedure Vital Signs Vital Signs: Temp Pulse Pulse Pulse Resp BP BP 05/30/19 07:36 05/30/19 07:32 05/30/19 07:28 36.6 C 79 16 05/29/19 23:11 37.2 C 70 16 05/29/19 16:28 37.1 C 67 16 05/29/19 14:03 36.6 C 64 18 152/58 H 05/29/19 13:32 36.8 C 66 148/62 H 05/29/19 13:00 36.9 C 63 18 137/72 05/29/19 12:45 36.8 C 60 18 136/64 05/29/19 12:21 36.6 C 56 L 16 157/73 H 05/29/19 12:00 63 16 05/29/19 11:05 77 18 05/29/19 10:35 80 18 05/29/19 10:06 37.1 C 78 18 05/29/19 09:40 36.5 C 88 20 159/46 H 05/29/19 09:30 89 20 160/55 H 05/29/19 09:23 36.5 C 91 H 17 132/53 L BP Pulse Ox 05/30/19 07:36 99 05/30/19 07:32 85 L 05/30/19 07:28 136/70 80 L 05/29/19 23:11 159/66 H 97 05/29/19 16:28 153/73 H 93 05/29/19 14:03 05/29/19 13:32 99 05/29/19 13:00 05/29/19 12:45 93 05/29/19 12:21 100 05/29/19 12:00 160/72 H 100 05/29/19 11:05 150/72 H 99 05/29/19 10:35 176/69 H 94 05/29/19 10:06 142/72 H 97 05/29/19 09:40 96 05/29/19 09:30 100 05/29/19 09:23 98 Notes Mental Status: alert / awake / arousable and participated in evaluation Patient Amnestic to Procedure: Yes Nausea / Vomiting: adequately controlled Pain: adequately controlled Airway Patency, RR, SpO2: stable & adequate BP & HR: stable & adequate Hydration State: stable & adequate Anesthetic Complications: no major complications apparent and Pt Satisfied with anesthetic care
[2019-05-30] MEDS: PRAVASTATIN SOD 10 MG TAB PO SCH (09:11)
[2019-05-30] MEDS: BUMETANIDE 1 MG TAB PO SCH (09:11)
[2019-05-30] MEDS: AMOXICILLIN/CLAVULANATE 500 MG TAB PO SCH (09:11)
[2019-05-30] MEDS: METOPROLOL TARTRATE 25 MG TAB PO SCH ×2 (09:12→20:29)
[2019-05-30] MEDS: DOCUSATE SODIUM 100 MG CAP PO SCH ×2 (09:12→20:30)
[2019-05-30] MEDS: POLYETHYLENE (MIRALAX) 17 GM PACK PO SCH (09:12)
[2019-05-30] MEDS: FAMOTIDINE 20 MG TAB PO SCH (09:12)
[2019-05-30] MEDS: INSULIN ASPART 100 UNITS/ML 3 ML PEN SC SCH ×4 (09:12→20:32)
[2019-05-30] MEDS: PANTOprazole 40 MG in SYRINGE 0 ML IV SCH ×2 (09:14→20:31)
[2019-05-30] MEDS: IPRATROPIUM BROMIDE NASAL SPRAY 0.06% 15ML NAE SCH ×2 (09:23→20:31)
[2019-05-30] MEDS: MAGNESIUM OXIDE 400 MG TAB PO SCH ×2 (10:26→20:31)
[2019-05-30] MEDS ORDERED: SODIUM CHLORIDE 0.9% 250 ML IV PRN (10:29)
--- NOTE | 2019-05-30 10:35 | Nephrology Progress Note ---
Date of Service May 30, 2019 Assessment & Plan (1) Acute kidney injury: DAVEY on CKD, in the setting of incarcerated hernia. Baseline creatinine 2.1 mg/dL. Clinical presentation consistent with ATN. CT did not demonstrate obstruction. UA with RBC/WBCs and protein in setting of Toribio catheter. Started on dialysis on 05/16/2019 for anuric acute kidney injury, hyperkalemia and metabolic acidosis. -- Remains HD dependent. Volume status and electrolyte balance are acceptable at this time. Will schedule heparin free HD for am in case patient remains hospitalized at [facility] (2) Chronic kidney disease, stage III (moderate): --Baseline Cr 2.1 (3) Incarcerated inguinal hernia: --s/p operative repair strangulated R inguinal hernia 05/14 (4) Anemia: -- Hgb continues to trend down. Suspected GI source of blood loss. Possible transfer to tertiary care center for further GI evaluation Subjective Mr. Haddad was seen & examined in his hospital room this morning. His daughter was present at bedside. EGD completed yesterday. Polyp identified within 1st portion of duodenum. No active bleeding found. Patient denies overt blood loss. He reports plans for transfer to tertiary care facility for further GI evaluation since Hgb continues to trend down. Review of Systems Constitutional: + weakness; no fever Eyes: no worsening vision and no problem reported Ear, Nose, Mouth, Throat: no problem reported Respiratory: no cough and no dyspnea Cardiovascular: no chest pain, no palpitations and no edema Gastrointestinal: no abdominal pain, no nausea, no vomiting and no diarrhea/loose stools Genitourinary: no dysuria Musculoskeletal: no back pain Integumentary: no rash Neurologic: no confusion Physical Exam Constitutional: + frail appearing; not in distress Eyes: PERRL, conjunctivae normal, anicteric sclerae ENMT: external ear and nose normal, oropharynx normal Neck: trachea midline, no thyromegaly Respiratory: normal respiratory effort, lungs clear to auscultation Cardiovascular: RRR, no murmur, no edema Gastrointestinal (Abdomen): normal bowel sounds, soft, nontender, no hepatosplenomegaly Musculoskeletal: Extremities: no cyanosis Skin: no rashes, warm and dry Neurologic: awake; not confused Results & Data Vital Signs (Past 12 Hours) Vital Signs Temp Pulse Resp BP Pulse Ox 12/09/19 07:36 99 05/30/19 07:32 85 L 05/30/19 07:28 36.6 C 79 16 136/70 80 L 05/29/19 23:11 37.2 C 70 16 159/66 H 97 Laboratory Results Laboratory Tests 05/30/19 05/30/19 06:29 06:29 WBC 8.39 Hgb 7.3 L Hct 21.4 L Plt Count 237 Sodium 137 Potassium 4.3 Chloride 106 Carbon Dioxide 23 BUN 62 H Creatinine 2.83 H Glucose 144 H PG Care Time/CCT Total # of Minutes Spent Total Time Spent with Patient: Total time spent is greater than 50% in coordination of care (as documented) at patient's floor/unit and/or counseling patient: (1) Anemia Anemia type: unspecified type Qualified Code(s): D64.9 - Anemia, unspecified
--- NOTE | 2019-05-30 11:10 | Discharge Summary ---
Date of Service May 30, 2019 Admission HPI Per Admitting Provider The patient is 78-year-old male with multiple medical problems including CAD, paroxysmal atrial fibrillation on anticoagulation with Eliquis, normal pressure hydrocephalus, cervical disc disease, stage III CKD, chronic diastolic heart failure, diabetes with neuropathy, obstructive sleep apnea, & hypertension. He has not been feeling well since yesterday; he is complaining of generalized weakness and fatigue and nausea since yesterday. He saw his family physician yesterday. He was also complaining of abdominal discomfort and noticed distention in the right groin area yesterday. He is complaining of constipation for the last 4 days. He passed some gas yesterday. Today he was having intractable vomiting. He has history of right inguinal hernia repair in the remote past. The further work-up done in the ER showed that patient has a strangulated right inguinal hernia. The surgery was notified and patient will be going for urgent surgery today. The blood labs show acute on chronic renal failure and he also has acute on chronic heart failure. BNP is high at 8066. The patient was on Eliquis and his last dose was last night. He stopped Eliquis this morning as he is supposed to go for lumbar puncture this Thursday at [facility]. The patient is at high risk of postoperative complications which was discussed with the patient and his family members who were present at bedside. Admission Exam Per Admitting Provider GENERAL : No acute distress EYES: No icterus, gaze conjugate NOSE: No evidence of epistaxis MOUTH: No lesions or candidiasis, mucosa moist NECK: Supple LUNGS: Bilateral basal crackles present HEART: Regular, rate controlled Systolic murmur present ABDOMEN: Soft, bowel sounds hypoactive Scar of old hernia repair noted in the right groin. Strangulated right inguinal hernia noted. EXTREMITIES: No LE edema, pedal pulses intact NEURO: A&OX3 Principal Diagnosis Severe sepsis with septic shock due to Citrobacter bacteremia Small bowel obstruction secondary to strangulated right inguinal hernia Acute renal failure due to acute tubular necrosis - newly requiring dialysis Upper gastrointestinal bleed Acute upper respiratory failure with hypoxia Acute recurrent delirium Diastolic heart failure (in setting of renal failure) Discharge Exam Constitutional well developed, well nourished and + obese; no acute distress Eyes + anicteric sclerae; normal pupil size ENMT external ear and nose normal, oropharynx normal Neck trachea midline Respiratory normal respiratory effort; no respiratory distress, no labored breathing, no retractions and does not use accessory muscles Auscultation: + diminished lung sounds (bibasal); no crackles, no rales, no rhonchi and no wheezes Cardiovascular Rate/Rhythm: regular rate and + irregularly irregular Heart Sounds: no murmur Extremities: normal capillary refill, + edema (3+ pitting edema legs bilat to the thighs) and + vascular access device (Right internal jugular tunneled catheter in place) pale mucus membranes Gastrointestinal (Abdomen) Inspection/Auscultation: abdomen normal to inspection and normal bowel sounds Percussion/Palpation: abdomen soft; abdomen nontender, no guarding and abdomen not rigid Musculoskeletal Extremities: + abnormal strength (bilateral generalized weakness of legs); no cyanosis and no clubbing Skin no rashes, warm and dry Neurologic moves all extremities and awake; no focal motor deficits and not confused Psychiatric A+Ox3, euthymic affect Discharge Data Allergies Allergy/AdvReac Type Severity Reaction Status Date / Time latex Allergy Unknown LOCAL SKIN Verified 05/14/19 17:23 IRRITATION lisinopril Allergy Unknown hyperkalemi Verified 05/14/19 17:23 a sulfamethoxazole AdvReac increases Verified 05/14/19 17:23 [From Bactrim] potassium trimethoprim [From Bactrim] AdvReac increases Verified 05/14/19 17:23 potassium Consultations 05/14/19 17:51 Consult General Surgery Stat 05/14/19 17:53 ED Decision to Admit Stat 05/14/19 21:46 Consult Cardiology Routine Consult Case Management - Discharge Planning Routine Consult Electrical Sign Wirer Helper Routine Consult Nephrology Routine 05/14/19 23:47 Consult Electrical Sign Wirer Helper Routine 05/15/19 06:56 Consult Nephrology Routine 05/15/19 16:48 Consult Palliative Care Routine 05/22/19 08:29 Consult Vascular Surgery Routine 05/22/19 10:57 Consult Case Management - Discharge Planning Routine 05/23/19 18:38 Consult Case Management - Discharge Planning Routine 05/28/19 08:54 Consult Gastroenterology Routine Procedures Performed Operation Date: 05/14/19 19:00 Actual Procedures s Incarcerated right inguinal hernia repair, aspiration of right groin, (Right) - Matheus Pham MD p small bowel resection - Matheus Pham MD Operation Date: 05/24/19 09:50 Actual Procedures p Perm Catheter Insertion Right Jugular Approach, Ultrasound Localization of Right Jugular Vein, Fluoroscopy for Positiong, Moderate Sedation [id number] 0988(Right) - Alex Emmanuel MD Operation Date: 05/29/19 09:00 Actual Procedures p Esophagogastroduodenoscopy(Not Applicable) - Smith Leon Ordered Studies 05/14/19 16:51 CT abd pelvis wo con Stat 05/15/19 23:39 US point of care ultrasound Routine 05/24/19 07:21 EV cvc insrt tunnel wo prt/commanding officer traffic division Routine US guide vascular access Routine Hospital Course (1) SBO (small bowel obstruction): Marco A Haddad is a 78 year old male admitted to [facility] from May 14 to May 30 2019 due to 3 weeks of abdominal pain. He was subsequently diagnosed with Citrobacter bactermia causing septic shock from necrotic strangulated small bowel obstruction in a right inguinal hernia. He underwent small bowel resection on May 14 and was transferred to the ICU post operatively due to hypotension requiring vasopressors for 3 days. He was left intubated due to high oxygen demand with suspected aspiration pneumonitis / ARDS. Extubated 05/18. Citrobacter bacteremia initially treated with IV Zosyn, now switched to Augmentin with the last planned date 05/31/2019. Last blood cultures negative from 05/18/2019. Small bowel obstruction - leslie now removed, no lifting over 20 pounds for 6-8 weeks. Follow up with surgery after discharge (Dr Pham). Acute renal failure with acute tubular necrosis - requiring dialysis since 05/16/2019, baseline Cr 2.1. Right perm catheter insertion 05/24/2019. Planned Tues//Sat dialysis. More recently having recurrent upper GI bleeding with melena requiring total 7 units packed red blood cell transfusion (x1 11/30, x2 12/6, x2 12/7, x1 12/8, x1 12/). Hgb stable 7.3 on discharge (although this was prior to 1 unit blood transfusion given on 05/30). EGD on 05/29 showed protruding submucosal lesion in 2nd part of duodenum with adherent clot (injected with epinephrine). Gastroenterology (Dr Leon) recommended advanced endoscopic evaluation at a tertiary care center and he is now being transferred to [facility] under the care of Dr Castañeda (hospitalist). (2) Melena: (3) Anemia: (4) Strangulated inguinal hernia: (5) Acute respiratory distress syndrome (ARDS): (6) Acute respiratory failure with hypoxia: (7) Gram-negative bacteremia: (8) Severe sepsis with septic shock: (9) Acute renal failure due to tubular necrosis: (10) Delirium: (11) Diastolic heart failure: (12) NPH (normal pressure hydrocephalus): (13) Stage 3 chronic kidney disease: (14) Atrial fibrillation: (15) PAD (peripheral artery disease): (16) Type 2 diabetes mellitus: (17) Obstructive sleep apnea: (18) Thrombocytopenia: (19) Gout: (20) Hypertension: (21) Adrenal nodule: (22) Asymptomatic cholelithiasis: (23) Constipation: Total Time Total Time Spent Total Time Spent (In Minutes): 75 Total Time Includes: Examination of the Patient, Discharge Planning, Medication Reconciliation and Communication With Other Providers (Dr Castañeda (Hospitalist) and Dr Sandoval (GI), [facility]. Dr Carney (nephrology).) Discharge Plan Discharge Items Patient Disposition: Transfer Acute [facility] Reason For Visit: VOMITING, WEAK Discharge Diagnosis: Upper GI bleed Small bowel obstruction secondary to strangulated right inguinal hernia Acute upper respiratory failure with hypoxia Severe sepsis with septic shock due to Citrobacter bacteremia Acute renal failure due to acute tubular necrosis - newly requiring dialysis Acute recurrent delirium Diastolic heart failure (in setting of renal failure) Suspected normal pressure hydrocephalus (a/w O/P workup) Persistent atrial fibrillation (present prior to admission) Peripheral artery disease (present prior to admission) Condition on Discharge: Fair Activity: Per Instructions section Non-emergency contact: Primary Care Provider Call non-emergency contact if: you have any medication questions and your symptoms worsen Follow-up/Referrals: Jovany Stephenson MD [Primary Care Provider] - Diet: Carb Consistent or DM2, Low Fiber and Low Sodium (2gm) Addtl Attending Provider Instructions: Marco A Haddad is a 78 year old male admitted to [facility] from May 14 to May 30 2019 due to 3 weeks of abdominal pain. He was subsequently diagnosed with Citrobacter bactermia causing septic shock from necrotic strangulated small bowel obstruction in a right inguinal hernia. He underwent small bowel resection on May 14 and was transferred to the ICU post operatively due to hypotension requiring vasopressors for 3 days. He was left intubated due to high oxygen demand with suspected aspiration pneumonitis / ARDS. Extubated 05/18. Citrobacter bacteremia initially treated with IV Zosyn, now switched to Augmentin with the last planned date 05/31/2019. Last blood cultures negative from 05/18/2019. Small bowel obstruction - leslie now removed, no lifting over 20 pounds for 6-8 weeks. Follow up with surgery after discharge (Dr Phma). Acute renal failure with acute tubular necrosis - requiring dialysis since 05/16/2019, baseline Cr 2.1. Right perm catheter insertion 05/24/2019. Planned //Sat dialysis. More recently having recurrent upper GI bleeding with melena requiring total 7 units packed red blood cell transfusion (x1 05/21, x2 12/, x2 12/, x1 /, x1 /). Hgb stable 7.3 on discharge (although this was prior to 1 unit blood transfusion given on 05/30). EGD on 05/29 showed protruding submucosal lesion in 2nd part of duodenum with adherent clot (injected with epinephrine). Gastroenterology (Dr Leon) recommended advanced endoscopic evaluation at a tertiary care center and he is now being transferred to [facility] under the care of Dr Castañeda (hospitalist). List of medications below are home meds. Please see scanned copy of inpatient medications for transfer. Pending Studies at Discharge: No Stand-Alone Forms: My [facility] Skilled Items Patient informed of condition?: Yes DNR: Yes Discharge Level of Care: Other Communicable Disease: No Discharge Prognosis: Stable Lines: None Urinary Catheter: No Medications and DC Order Prescriptions: Continued Eliquis 5 mg tablet 5 mg PO BID Qty: 180 RF: 3 metoprolol tartrate 25 mg tablet 12.5 mg PO AMPM RF: 0 aspirin 81 mg tablet,delayed release (DR/EC) 81 mg PO QAM RF: 0 cefuroxime axetil 500 mg tablet 500 mg PO BID Qty: 20 RF: 0 ipratropium bromide 42 mcg (0.06 %) spray,non-aerosol 2 spray intranasal BID Qty: 15 RF: 11 cholecalciferol (vitamin D3) 1,000 unit capsule 1,000 units PO QAM RF: 0 famotidine 40 mg tablet 40 mg PO QAM RF: 0 glipizide 5 mg tablet extended release 24hr 5 mg PO QAM RF: 0 torsemide 10 mg tablet 10 mg PO QAM RF: 0 amlodipine 5 mg tablet 5 mg PO QAM RF: 0 lisinopril 5 mg tablet 5 mg PO QAM RF: 0 gabapentin 100 mg capsule See Rx Instructions mg PO DIRECTED RF: 0 Cholest Off 450 mg Tablet 0 mg PO BID RF: 0 omega-3 fatty acids-fish oil [Fish Oil] 360-1,200 mg Capsule 2,400 cap PO QAM RF: 0 PreserVision AREDS-2 [id number] fm-ttmi-my-mg Capsule 1 tab PO BID RF: 0 multivitamin Tablet 1 tab PO QAM RF: 0 ascorbic acid (vitamin C) 1,000 mg Tablet 1,000 mg PO QAM RF: 0 garlic 1,000 mg Capsule 1,000 mg PO QAM RF: 0 pravastatin 10 mg tablet 10 mg PO QAM RF: 0 febuxostat [Uloric] 40 mg Tablet 40 mg PO QAM RF: 0 fluvoxamine 100 mg tablet 100 mg PO HS RF: 0 Discharge Orders: Discharge Order (Routine); Ordered 05/30/19 Ordered By: Sandro Elizabeth Admission Data Admit Date/Time: 05/14/19 18:12 Attending Provider: Sandro Elizabeth Admit Provider: Naseem May Primary Care Provider: Jovany Stephenson Other Providers: [facility] ; [facility] ; Matheus Mg ; Naseem May ; Андрей Vargas ; Андрей Schmitt ; Mina Carney ; Sid Perez ; Erik [facility] ; Alex Emmanuel ; Smith Leon
--- NOTE | 2019-05-30 19:30 | Hospitalist Progress Note ---
Date of Service May 30, 2019 Assessment & Plan (1) SBO (small bowel obstruction): Secondary to strangulated right inguinal hernia. POD #17 s/p reduction of incarcerated right inguinal hernia, small bowel resection (necrotic small bowel within the hernia sac) Having BMs now with melena NG tube removed on 05/20 Now advanced to low fiber diet and tolerating well Appreciate surgery management - leslie removed -No lifting over 20 pounds for 6 to 8 weeks, he can shower and will have them follow-up with him after discharge (2) Melena: as below for anemia (3) Anemia: Anemia of chronic kidney disease with superimposed acute blood loss anemia initially from surgery, multiple blood draws, prolonged hospitalization, and now with development of GI bleed on 05/28 Requiring total 6 units packed red blood cell transfusion (x1 05/21, x2 12/, x2 /, x1 12/). Hgb stable 7.3 overnight but this was with additional unit given yesterday therefore will transfuse another 1 unit today. Continue pantoprazole 40mg IV BID - iron studies show Fe deficiency, trans sat 9% - continue Epogen with dialysis - follow CBC serially - continue holding Eliquis and aspirin (4) Strangulated inguinal hernia: as above, status post surgical repair -Surgery following -[place] now removed (5) Acute respiratory distress syndrome (ARDS): Now resolved, required mech ventilation early in course (6) Acute respiratory failure with hypoxia: Was resolved. Secondary to aspiration pneumonitis, ARDS requiring intubation and mech ventilation, and renal failure with pulm edema Was on room air and much improved, now back on some O2 via NC as developing volume overload from multiple PRBC transfusions -continue O2 as needed to keep O2 sats > 92% (7) Gram-negative bacteremia: Repeat blood cultures negative -final Pansensitive Citrobacter koseri blood culture positive. Suspected from ischemic bowel in strangulated hernia. -now on p.o. Augmentin renally dosed for total of 14 days of antibiotics -last date of treatment would be 05/31/2019. -discontinued IV Unasyn which was given for over a week due to bowel ileus (8) Severe sepsis with septic shock: Now resolved with renal failure requiring hemodialysis With respiratory failure requiring intubation With hypotension requiring vasopressors (9) Acute renal failure due to tubular necrosis: No hydronephrosis on admission. Presentation consistent with ATN secondary to severe sepsis. Appreciate nephrology ongoing management with ongoing diuresis, planned Tue/Th/Sat -now s/p placement of tunneled dialysis catheter 05/24 -outpatient HD is arranged starting 05/31, but now with pending transfer to tertiary care facility, will likely need to postpone this -renal function is actually not terrible in between HD treatments now, however remains very volume overloaded with significant LE edema, especially in need for continued blood transfusions. -d/cd Toribio, continues to be making some urine, about 400mL daily now -Nephrology added Bumex 1mg po daily on 05/29 (10) Delirium: Delirium on the background of recent sepsis and renal failure Greatly improved now, marked improvement in mentation since last week when I last saw this patient, some sundowning still occuring Continue Zyprexa to 5 mg p.o. nightly as needed for agitation-has not used in a long time Delirium prevention strategies-good sleep-wake cycles, keeping blinds open during the daytime, redirection, supportive care, avoidance of opioids and benzodiazepines as well as antihistamines. (11) Diastolic heart failure: Fluid overload in setting of renal failure. Fluid management with hemodialysis. (12) NPH (normal pressure hydrocephalus): Suspected history of this. Missed diagnostic lumbar puncture due to current admission. - will need to delay further work-up for this until after recovery (13) Stage 3 chronic kidney disease: With acute kidney injury secondary to ATN. See treatment above. Now will be ESRD and have permanent hemodialysis (14) Atrial fibrillation: A. fib/flutter. Chronic Rates controlled on metoprolol. -now holding Eliquis as above for GI Bleed -When okay to restart Eliquis, will discuss with Pharmacy to see if should be back on his 5mg bid dosing versus 2.5 in the setting of dialysis (15) PAD (peripheral artery disease): Has known LE PAD - LT SFA, tibial disease as per cardiology notes -continue to hold Aspirin but have since restarted statin (16) Type 2 diabetes mellitus: HbA1c 5.6 05/29 suggests no longer needs outpatient glipizide. Likely can be d/c on discharge. Although now eating better appears his glucose levels are increasing again. 8 units Novolog required 05/29. (17) Obstructive sleep apnea: Is considered mild and he is not on CPAP at home (18) Thrombocytopenia: Now resolved. In setting of sepsis with negative HIT labs (19) Gout: Uric acid 2.7. Dialysis will deal with this for now but may need restarted on Uloric if he comes off dialysis. (20) Hypertension: Continue metoprolol tartrate 12.5 mg p.o. twice daily Blood pressures stable to slightly elevated on current medical regimen. Will avoid hypotension prior to dialysis. (21) Adrenal nodule: Incidentally noted 2.3 cm right adrenal nodule and also noted nodularity of the left adrenal gland on CT -Follow as outpatient (22) Asymptomatic cholelithiasis: Noted numerous gallstones on CT the abdomen/no CBD dilatation, asymptomatic -Follow clinically (23) Constipation: Resolved and now with melena as above (24) Discharge planning issues: Gastroenterology recommended advanced endoscopic evaluation at a tertiary care center and he is now being transferred to [facility] under the care of Dr Castañeda (hospitalist), also discussed with gastroenterology at at time. Awaiting bed at [facility] to be transferred. Subjective Patient seen in AM. Planned to discharge to Tertiary care center but still waiting for a bed, therefore discharge summary changed to progress note. Patient seen with his and daughter at bedside and all updated on his condition. No acute events overnight. From when I last saw the patient last week he appears much more alert, orientated and able to have a full meaningful conversation. He reports ongoing melena but improved from prior. No abdominal pain, nausea or vomiting. No shortness of breath, chest pain or dizziness (although also doesn't get out of bed). Review of Systems Review of Systems: All systems reviewed & are unremarkable except as noted in HPI & below Physical Exam Constitutional: well developed, + obese and + malnourished; no acute distress Eyes: + anicteric sclerae; normal pupil size ENMT: external ear and nose normal, oropharynx normal lips appear pale Neck: trachea midline Respiratory: normal respiratory effort; no respiratory distress, no labored breathing, no retractions and does not use accessory muscles Auscultation: + diminished lung sounds (bibasal); no crackles, no rales, no rhonchi and no wheezes Cardiovascular: Rate/Rhythm: regular rate and + irregularly irregular Heart Sounds: no murmur Extremities: normal capillary refill, + edema (3+ pitting edema legs bilat to the thighs) and + vascular access device (Right internal jugular tunneled catheter in place) Gastrointestinal (Abdomen): Inspection/Auscultation: abdomen normal to inspection and normal bowel sounds Percussion/Palpation: abdomen soft; abdomen nontender, no guarding and abdomen not rigid Musculoskeletal: Extremities: + abnormal strength (bilateral generalized weakness of legs); no cyanosis and no clubbing Skin: no rashes, warm and dry Neurologic: moves all extremities (generalized weakness LE > UE) and awake; no focal motor deficits and not confused Psychiatric: Orientation: alert and oriented x 3 Affect: euthymic affect Thought Process: linear/logical thought process and clear/coherent thought process Insight: + fair insight Results & Data Vital Signs (Past 12 Hours) Vital Signs Temp Pulse Resp BP Pulse Ox 05/30/19 16:06 98.1 F 75 18 162/73 H 96 05/30/19 14:38 97.5 F L 72 16 147/63 H 96 05/30/19 13:35 97.5 F L 70 16 138/65 100 05/30/19 13:05 97.7 F 75 16 164/65 H 96 05/30/19 12:21 97.3 F L 77 16 156/69 H 92 05/30/19 12:18 98.4 F 67 18 158/68 H 96 05/30/19 12:02 98.2 F 68 18 153/68 H 99 05/30/19 09:38 96 05/30/19 07:36 99 05/30/19 07:32 85 L PG Care Time/CCT Total # of Minutes Spent Total Time Spent with Patient: Total time spent is greater than 50% in coordination of care (as documented) at patient's floor/unit and/or counseling patient: (1) Anemia Anemia type: iron deficiency Iron deficiency anemia type: other iron deficiency Qualified Code(s): D50.8 - Other iron deficiency anemias (2) Diastolic heart failure Heart failure chronicity: chronic Qualified Code(s): I50.32 - Chronic diastolic (congestive) heart failure (3) Atrial fibrillation Atrial fibrillation type: paroxysmal Qualified Code(s): I48.0 - Paroxysmal atrial fibrillation (4) Type 2 diabetes mellitus Diabetes mellitus mcc insulin use: without oil heaterman use Diabetes mellitus complication status: with kidney complications Diabetes mellitus complication detail: with chronic kidney disease Chronic kidney disease stage: stage 3 (moderate) Qualified Code(s): E11.22 - Type 2 diabetes mellitus with diabetic chronic kidney disease; N18.3 - Chronic kidney disease, stage 3 (moderate) (5) Gout Gout site: unspecified site Gout etiology: unspecified cause Chronicity: chronic Presence of tophus: without tophus Qualified Code(s): M1A.9XX0 - Chronic gout, unspecified, without tophus (tophi) (6) Hypertension Hypertension type: essential hypertension Qualified Code(s): I10 - Essential (primary) hypertension (7) Constipation Constipation type: unspecified constipation type Qualified Code(s): K59.00 - Constipation, unspecified
[2019-05-30] MEDS: GABAPENTIN 100 MG CAP PO SCH (20:29)
[2019-05-30] MEDS: FLUVOXAMINE MALEATE 50 MG TAB PO SCH (20:30)
[2019-05-31 06:03] LABS: Hemoglobin 6.4 g/dL (14.0-18.0); Mean Corpuscular Hemoglobin 29.2 pg (25-34); Mean Corpuscular Hgb Conc 33.7 g/dL (32-36); Mean Corpuscular Volume 86.8 fL (80-100); Mean Platelet Volume 9.3 fL (7.4-10.4); Platelet Count 198 K/uL (130-400); RDW Coefficient of Variation 15.5 % (11.5-14.5); RDW Standard Deviation 48.1 fL (36.4-46.3); Red Blood Count 2.19 M/uL (4.7-6.1); White Blood Count 5.93 K/uL (4.8-10.8)
[2019-05-31] MEDS ORDERED: SODIUM CHLORIDE 0.9% 250 ML IV PRN ×2 (06:13→07:24)
[2019-05-31 06:29] LABS: BUN Creatinine Ratio 22.1 (10-20); Calcium 7.5 mg/dl (8.5-10.1); Creatinine Clr Calc Pharmacy 26.2 ml/min; Potassium 4.3 mmol/L (3.5-5.1)
[2019-05-31] MEDS ORDERED: EPOETIN ALFA 10,000 UNITS/ML VIAL IV ONE (07:00)
[2019-05-31] MEDS ORDERED: SODIUM CHLORIDE 0.9% 1000ML 1,000 ML IV PRN (07:00)
[2019-05-31] MEDS: INSULIN ASPART 100 UNITS/ML 3 ML PEN SC SCH ×2 (08:56→15:02)
[2019-05-31] MEDS: PRAVASTATIN SOD 10 MG TAB PO SCH (08:57)
[2019-05-31] MEDS: POLYETHYLENE (MIRALAX) 17 GM PACK PO SCH (08:57)
[2019-05-31] MEDS: AMOXICILLIN/CLAVULANATE 500 MG TAB PO SCH (08:57)
[2019-05-31] MEDS: MAGNESIUM OXIDE 400 MG TAB PO SCH (08:57)
[2019-05-31] MEDS: FAMOTIDINE 20 MG TAB PO SCH (08:57)
[2019-05-31] MEDS: DOCUSATE SODIUM 100 MG CAP PO SCH (08:57)
[2019-05-31] MEDS: BUMETANIDE 1 MG TAB PO SCH (08:57)
[2019-05-31] MEDS: IPRATROPIUM BROMIDE NASAL SPRAY 0.06% 15ML NAE SCH (08:58)
[2019-05-31] MEDS: METOPROLOL TARTRATE 25 MG TAB PO SCH (09:19)
[2019-05-31] MEDS: PANTOprazole 40 MG in SYRINGE 0 ML IV SCH (09:19)
--- NOTE | 2019-05-31 11:50 | Nephrology Progress Note ---
Date of Service May 31, 2019 Assessment & Plan (1) Acute kidney injury: DAVEY on CKD, in the setting of incarcerated hernia. Baseline creatinine 2.1 mg/dL. Clinical presentation consistent with ATN. CT did not demonstrate obstruction. UA with RBC/WBCs and protein in setting of Toribio catheter. Started on dialysis on 05/16/2019 for anuric acute kidney injury, hyperkalemia and metabolic acidosis. -- Remains HD dependent. Patient is scheduled for heparin free HD today. Primary service has ordered 3 U PRBC to be given during HD (2) Chronic kidney disease, stage III (moderate): --Baseline Cr 2.1 (3) Incarcerated inguinal hernia: --s/p operative repair strangulated R inguinal hernia 05/14 (4) Anemia: -- Hgb continues to trend down. Suspected GI source of blood loss. Possible transfer to tertiary care center for further GI evaluation Subjective Mr. Haddad was seen & examined in his hospital room this morning. He is preparing for HD. Mr. Haddad suffered melena last night. Hospitalist service has ordered 3 units PRBC w/ HD today Review of Systems Constitutional: + weakness; no fever Eyes: no worsening vision and no problem reported Ear, Nose, Mouth, Throat: no problem reported Respiratory: no cough and no dyspnea Cardiovascular: no chest pain, no palpitations and no edema Gastrointestinal: no abdominal pain, no nausea, no vomiting and no diarrhea/loose stools Genitourinary: no dysuria, no urinary hesitancy and no hematuria Musculoskeletal: no back pain Integumentary: no rash Neurologic: no falls, no dizziness and no confusion Physical Exam Constitutional: + frail appearing; not in distress Eyes: PERRL, conjunctivae normal, anicteric sclerae ENMT: external ear and nose normal, oropharynx normal Neck: trachea midline, no thyromegaly Respiratory: normal respiratory effort, lungs clear to auscultation Cardiovascular: RRR, no murmur, no edema Gastrointestinal (Abdomen): normal bowel sounds, soft, nontender, no hepatosplenomegaly Musculoskeletal: Extremities: no cyanosis Skin: no rashes, warm and dry Neurologic: awake; not confused Results & Data Vital Signs (Past 12 Hours) Vital Signs Temp Pulse Pulse Pulse Resp BP BP 05/31/19 11:40 80 127/66 05/31/19 11:20 81 131/73 05/31/19 11:11 37.0 C 81 18 159/91 H 05/31/19 11:00 81 159/91 H 05/31/19 10:40 85 162/79 H 05/31/19 10:20 67 156/69 H 05/31/19 10:04 36.4 C L 77 16 131/65 05/31/19 10:00 77 131/65 05/31/19 09:58 37.2 C 76 18 136/76 05/31/19 09:40 75 128/71 05/31/19 09:20 77 150/75 H 05/31/19 09:13 37.2 C 82 82 141/66 H 05/31/19 08:40 37.0 C 86 18 157/72 H 05/31/19 08:25 37.0 C 77 18 171/67 H 05/31/19 08:07 36.8 C 81 18 153/56 H 05/31/19 07:15 37.0 C 80 18 05/31/19 06:09 36.9 C 81 18 137/71 BP Pulse Ox 05/31/19 11:40 05/31/19 11:20 05/31/19 11:11 05/31/19 11:00 05/31/19 10:40 05/31/19 10:20 05/31/19 10:04 05/31/19 10:00 05/31/19 09:58 05/31/19 09:40 05/31/19 09:20 05/31/19 09:13 05/31/19 08:40 96 05/31/19 08:25 96 05/31/19 08:07 95 05/31/19 07:15 140/70 93 05/31/19 06:09 95 Laboratory Results Laboratory Tests 05/31/19 05/31/19 05:34 05:34 WBC 5.93 Hgb 6.4 L* Hct 19.0 L* Plt Count 198 Sodium 137 Potassium 4.3 Chloride 107 Carbon Dioxide 25 BUN 67 H Creatinine 3.02 H Glucose 145 H Calcium 7.5 L PG Care Time/CCT Total # of Minutes Spent Total Time Spent with Patient: Total time spent is greater than 50% in coordination of care (as documented) at patient's floor/unit and/or counseling patient: (1) Anemia Anemia type: iron deficiency Iron deficiency anemia type: other iron deficiency Qualified Code(s): D50.8 - Other iron deficiency anemias
[2019-05-31 12:17] LABS: Hematocrit (blood only) 24.7 % (42-52); Hemoglobin 8.4 g/dL (14.0-18.0)
--- NOTE | 2019-06-01 13:39 | Discharge Summary ---
Date of Service May 31, 2019 Admission HPI Per Admitting Provider The patient is 78-year-old male with multiple medical problems including CAD, paroxysmal atrial fibrillation on anticoagulation with Eliquis, normal pressure hydrocephalus, cervical disc disease, stage III CKD, chronic diastolic heart failure, diabetes with neuropathy, obstructive sleep apnea, & hypertension. He has not been feeling well since yesterday; he is complaining of generalized weakness and fatigue and nausea since yesterday. He saw his family physician yesterday. He was also complaining of abdominal discomfort and noticed distention in the right groin area yesterday. He is complaining of constipation for the last 4 days. He passed some gas yesterday. Today he was having intractable vomiting. He has history of right inguinal hernia repair in the remote past. The further work-up done in the ER showed that patient has a strangulated right inguinal hernia. The surgery was notified and patient will be going for urgent surgery today. The blood labs show acute on chronic renal failure and he also has acute on chronic heart failure. BNP is high at 8066. The patient was on Eliquis and his last dose was last night. He stopped Eliquis this morning as he is supposed to go for lumbar puncture this Thursday at [facility]. The patient is at high risk of postoperative complications which was discussed with the patient and his family members who were present at bedside. Admission Exam Per Admitting Provider GENERAL : No acute distress EYES: No icterus, gaze conjugate NOSE: No evidence of epistaxis MOUTH: No lesions or candidiasis, mucosa moist NECK: Supple LUNGS: Bilateral basal crackles present HEART: Regular, rate controlled Systolic murmur present ABDOMEN: Soft, bowel sounds hypoactive Scar of old hernia repair noted in the right groin. Strangulated right inguinal hernia noted. EXTREMITIES: No LE edema, pedal pulses intact NEURO: A&OX3 Principal Diagnosis Severe sepsis with septic shock due to Citrobacter bacteremia Small bowel obstruction secondary to strangulated right inguinal hernia Acute renal failure due to acute tubular necrosis - newly requiring dialysis Upper gastrointestinal bleed Acute upper respiratory failure with hypoxia Acute recurrent delirium Diastolic heart failure (in setting of renal failure) Discharge Exam Constitutional well developed, well nourished and + obese; no acute distress Eyes + anicteric sclerae; normal pupil size ENMT external ear and nose normal, oropharynx normal Neck trachea midline Respiratory normal respiratory effort; no respiratory distress, no labored breathing, no retractions and does not use accessory muscles Auscultation: + diminished lung sounds (bibasal); no crackles, no rales, no rhonchi and no wheezes Cardiovascular Rate/Rhythm: regular rate and + irregularly irregular Heart Sounds: no murmur Extremities: normal capillary refill, + edema (3+ pitting edema legs bilat to the thighs) and + vascular access device (Right internal jugular tunneled catheter in place) pale mucus membranes Gastrointestinal (Abdomen) Inspection/Auscultation: abdomen normal to inspection and normal bowel sounds Percussion/Palpation: abdomen soft; abdomen nontender, no guarding and abdomen not rigid Musculoskeletal Extremities: + abnormal strength (bilateral generalized weakness of legs); no cyanosis and no clubbing Skin no rashes, warm and dry Neurologic moves all extremities and awake; no focal motor deficits and not confused Psychiatric A+Ox3, euthymic affect Discharge Data Allergies Allergy/AdvReac Type Severity Reaction Status Date / Time latex Allergy Unknown LOCAL SKIN Verified 05/14/19 17:23 IRRITATION lisinopril Allergy Unknown hyperkalemi Verified 05/14/19 17:23 a sulfamethoxazole AdvReac increases Verified 05/14/19 17:23 [From Bactrim] potassium trimethoprim [From Bactrim] AdvReac increases Verified 05/14/19 17:23 potassium Consultations 05/14/19 17:51 Consult General Surgery Stat 05/14/19 17:53 ED Decision to Admit Stat 05/14/19 21:46 Consult Cardiology Routine Consult Case Management - Discharge Planning Routine Consult Nurse Practitioner Hospitalist Routine Consult Nephrology Routine 05/14/19 23:47 Consult Nurse Practitioner Hospitalist Routine 05/15/19 06:56 Consult Nephrology Routine 05/15/19 16:48 Consult Palliative Care Routine 05/22/19 08:29 Consult Vascular Surgery Routine 05/22/19 10:57 Consult Case Management - Discharge Planning Routine 05/23/19 18:38 Consult Case Management - Discharge Planning Routine 05/28/19 08:54 Consult Gastroenterology Routine 05/31/19 01:10 Burn CD for patient Routine Procedures Performed Operation Date: 05/14/19 19:00 Actual Procedures s Incarcerated right inguinal hernia repair, aspiration of right groin, (Right) - Matheus Pham MD p small bowel resection - Matheus Pham MD Operation Date: 05/24/19 09:50 Actual Procedures p Perm Catheter Insertion Right Jugular Approach, Ultrasound Localization of Right Jugular Vein, Fluoroscopy for Positiong, Moderate Sedation [id number] 0906(Right) - Alex Emmanuel MD Operation Date: 05/29/19 09:00 Actual Procedures p Esophagogastroduodenoscopy(Not Applicable) - Smith Leon Ordered Studies 05/14/19 16:51 CT abd pelvis wo con Stat 05/15/19 23:39 US point of care ultrasound Routine 05/24/19 07:21 EV 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 He was subsequently diagnosed with Citrobacter bacteremia causing septic shock from necrotic strangulated small bowel obstruction in a right inguinal hernia. He underwent small bowel resection on May 14 and was transferred to the ICU post operatively due to hypotension requiring vasopressors for 3 days. He was left intubated due to high oxygen demand with suspected aspiration pneumonitis / ARDS. Extubated 05/18. Citrobacter bacteremia initially treated with IV Zosyn, now switched to Augmentin with the last planned date 05/31/2019. Last blood cultures negative from 05/18/2019. Small bowel obstruction - leslie now removed, no lifting over 20 pounds for 6-8 weeks. Follow up with surgery after discharge (Dr Pham). Acute renal failure with acute tubular necrosis - requiring dialysis since 05/16/2019, baseline Cr 2.1. Right perm catheter insertion 05/24/2019. Planned Tu/Th/Sat dialysis, making approximately 400ml urine daily, valera catheter now removed. Last dialysis date 05/31. More recently having recurrent upper GI bleeding with melena requiring total 10 units packed red blood cell transfusion (x1 05/21, x2 12/, x2 12/, x1 /, x1 12/, x3 05/31). Initially in setting of Eliquis use but now on hold since 05/27. Hgb 8.4 on discharge (this was prior to additional unit blood transfusion). EGD on 05/29 showed protruding submucosal lesion in 2nd part of duodenum with adherent clot (injected with epinephrine). Gastroenterology (Dr Leon) recommended advanced endoscopic evaluation at a tertiary care center and he is now being transferred to [facility] under the care of Dr Castañeda (hospitalist). Updated Dr Asencio on patient 05/31 due to transfer delay and requiring further blood transfusions. List of medications below are home meds. Please see scanned copy of inpatient medications for transfer. (2) Melena: (3) Anemia: (4) Strangulated inguinal hernia: (5) Acute respiratory distress syndrome (ARDS): (6) Acute respiratory failure with hypoxia: (7) Gram-negative bacteremia: (8) Severe sepsis with septic shock: (9) Acute renal failure due to tubular necrosis: (10) Delirium: (11) Diastolic heart failure: (12) NPH (normal pressure hydrocephalus): (13) Stage 3 chronic kidney disease: (14) Atrial fibrillation: (15) PAD (peripheral artery disease): (16) Type 2 diabetes mellitus: (17) Obstructive sleep apnea: (18) Thrombocytopenia: (19) Gout: (20) Hypertension: (21) Adrenal nodule: (22) Asymptomatic cholelithiasis: (23) Constipation: (24) Discharge planning issues: Total Time Total Time Spent Total Time Spent (In Minutes): 45 Total Time Includes: Examination of the Patient, Discharge Planning, Medication Reconciliation and Communication With Other Providers Discharge Plan Discharge Items Patient Disposition: Transfer Acute Care Hospital Reason For Visit: VOMITING, WEAK Discharge Diagnosis: Upper GI bleed Small bowel obstruction secondary to strangulated right inguinal hernia Acute upper respiratory failure with hypoxia Severe sepsis with septic shock due to Citrobacter bacteremia Acute renal failure due to acute tubular necrosis - newly requiring dialysis Acute recurrent delirium Diastolic heart failure (in setting of renal failure) Suspected normal pressure hydrocephalus (a/w O/P workup) Persistent atrial fibrillation (present prior to admission) Peripheral artery disease (present prior to admission) Condition on Discharge: Fair Activity: Per Instructions section Non-emergency contact: Primary Care Provider Call non-emergency contact if: you have any medication questions and your symptoms worsen Follow-up/Referrals: Jovany Stephenson MD [Primary Care Provider] - Diet: Carb Consistent or DM2, Low Fiber and Low Sodium (2gm) Addtl Attending Provider Instructions: Marco A Haddad is a 78 year old male admitted to [facility] from May 14 to May 31 2019 due to 3 weeks of abdominal pain. He was subsequently diagnosed with Citrobacter bacteremia causing septic shock from necrotic strangulated small bowel obstruction in a right inguinal hernia. He underwent small bowel resection on May 14 and was transferred to the ICU post operatively due to hypotension requiring vasopressors for 3 days. He was left intubated due to high oxygen demand with suspected aspiration pneumonitis / ARDS. Extubated 05/18. Citrobacter bacteremia initially treated with IV Zosyn, now switched to Augmentin with the last planned date 05/31/2019. Last blood cultures negative from 05/18/2019. Small bowel obstruction - leslie now removed, no lifting over 20 pounds for 6-8 weeks. Follow up with surgery after discharge (Dr Pham). Acute renal failure with acute tubular necrosis - requiring dialysis since 07/16/2018, baseline Cr 2.1. Right perm catheter insertion 05/24/2019. Planned Tues/Thurs/Sat dialysis, making approximately 400ml urine daily, valera catheter now removed. Last dialysis date 05/31. More recently having recurrent upper GI bleeding with melena requiring total 10 units packed red blood cell transfusion (x1 /, x2 12/6, x2 12/7, x1 12/8, x1 12/, x3 /). Initially in setting of Eliquis use but now on hold since 05/27. Hgb 8.4 on discharge (this was prior to additional unit blood transfusion). EGD on 05/29 showed protruding submucosal lesion in 2nd part of duodenum with adheren t clot (injected with epinephrine). Gastroenterology (Dr Leon) recommended advanced endoscopic evaluation at a tertiary care center and he is now being transferred to [facility] accepted under the care of Dr Castañeda (hospitalist). Updated Dr Asencio on patient 05/31 due to transfer delay and requiring further blood transfusions. List of medications below are home meds. Please see scanned copy of inpatient medications for transfer. Pending Studies at Discharge: No Stand-Alone Forms: My [facility] Skilled Items Patient informed of condition?: Yes DNR: Yes Discharge Level of Care: Other Communicable Disease: No Discharge Prognosis: Stable Lines: None Urinary Catheter: No Medications and DC Order Prescriptions: Continued Eliquis 5 mg tablet 5 mg PO BID Qty: 180 RF: 3 metoprolol tartrate 25 mg tablet 12.5 mg PO AMPM RF: 0 aspirin 81 mg tablet,delayed release (DR/EC) 81 mg PO QAM RF: 0 cefuroxime axetil 500 mg tablet 500 mg PO BID Qty: 20 RF: 0 ipratropium bromide 42 mcg (0.06 %) spray,non-aerosol 2 spray intranasal BID Qty: 15 RF: 11 cholecalciferol (vitamin D3) 1,000 unit capsule 1,000 units PO QAM RF: 0 famotidine 40 mg tablet 40 mg PO QAM RF: 0 glipizide 5 mg tablet extended release 24hr 5 mg PO QAM RF: 0 torsemide 10 mg tablet 10 mg PO QAM RF: 0 amlodipine 5 mg tablet 5 mg PO QAM RF: 0 lisinopril 5 mg tablet 5 mg PO QAM RF: 0 gabapentin 100 mg capsule See Rx Instructions mg PO DIRECTED RF: 0 Cholest Off 450 mg Tablet 0 mg PO BID RF: 0 omega-3 fatty acids-fish oil [Fish Oil] 360-1,200 mg Capsule 2,400 cap PO QAM RF: 0 PreserVision AREDS-2 [id number] [id number]-[id number]-mg Capsule 1 tab PO BID RF: 0 multivitamin Tablet 1 tab PO QAM RF: 0 ascorbic acid (vitamin C) 1,000 mg Tablet 1,000 mg PO QAM RF: 0 garlic 1,000 mg Capsule 1,000 mg PO QAM RF: 0 pravastatin 10 mg tablet 10 mg PO QAM RF: 0 febuxostat [Uloric] 40 mg Tablet 40 mg PO QAM RF: 0 fluvoxamine 100 mg tablet 100 mg PO HS RF: 0 Discharge Orders: Discharge Order (Routine); Ordered 05/31/19 Ordered By: Sandro Elizabeth Admission Data Admit Date/Time: 05/14/19 18:12 Attending Provider: Sandro Elizabeth Admit Provider: Naseem May Primary Care Provider: Jovany Stephenson Other Providers: [facility] ; Santiago Her [facility] ; Matheus Pham ; Naseem May ; Андрей Vargas ; Андрей Schmitt ; Mina Carney ; Sid Perez ; Erik Bingham ; Alex Emmanuel ; Smith Leon Other Interventions: Discharge Summary Assessment (RN) Last Done: 05/31/19 15:18 DC Date/Time DO NOT enter until pt leaves facility: 05/31/19 15:20
--- NOTE | 2019-06-08 09:26 | Coding Query ---
SEPSIS To promote full compliance with coding requirements relating to patient care, physician participation is requested in all cases of creel hand uncertainty. Please assist us with the question(s) below: In responding to this query, please exercise your independent professional judgement. The fact that a question is asked does not imply that any particular answer is desired or expected. We appreciate your clarification on this issue. Throughout the medical record, you have clearly documented a localized infection and your patient has clinical evidence of a generalized sepsis or severe sepsis. The term urosepsis is a nonspecific entity and is coded as an UTI. If the patient has sepsis, severe sepsis, from an urinary source or some other source, please clarify in your response below. The medical record reflects the following clinical findings: Patient admitted with strangulated inguinal hernia -. Progress notes document septic shock. Seeking to clarify if the Septic shock was present on admission. Please completed BOLDED PHRASE BELOW . Thank you ! PEDRITO Bagley [facility] ____ (X)Bacteremia (Nonspecific laboratory finding of bacteria in the blood) Specify Organism Citrobacter Koseri () Present on Admission (X) Not present on admission () Unable to clinically determine (X) Septicemia (Systemic disease associated with the presence of pathogenic microorganisms in the blood): Specify Organism Citrobacter Koseri () Present on Admission (X) Not present on admission () Unable to clinically determine (X) Sepsis Specify Organism Citrobacter Koseri Specify Associated Condition/Diagnosis gastrointestinal (necrotic bowel) () Present on Admission () Not present on admission () Unable to clinically determine (X) Severe Sepsis (Sepsis associated with acute organ dysfunction) Specify Organism as above Specify Associated Condition/Diagnosis acute renal failure () Present on Admission (X) Not present on admission () Unable to clinically determine (X) Septic Shock (Severe sepsis with acute circulatory failure, unexplained by other causes) ( ) Present on Admission (X) Not present on admission ( ) Unable to clinically determine () Other, patient has: MTDD
== END 2019-05-31 15:20 | disposition short-term general hospital (02) | DRG 329 ==
LOC: ED 16:05 → SUATTDRO 18:12 → OR 19:29 → SUATTDRO 21:44 → 1E 21:44 → 2S 05-19 12:17 → 3W 05-25 18:20

== ENCOUNTER 2019-06-13 12:46 | Inpatient (IN) ==
[2019-06-13 15:13] LABS: Hematocrit (blood only) 26.1 % (42-52); Hemoglobin 8.5 g/dL (14.0-18.0); Mean Corpuscular Hemoglobin 28.8 pg (25-34); Mean Corpuscular Volume 88.5 fL (80-100); Platelet Count 317 K/uL (130-400); RDW Coefficient of Variation 14.7 % (11.5-14.5); RDW Standard Deviation 47.3 fL (36.4-46.3); Red Blood Count 2.95 M/uL (4.7-6.1); White Blood Count 13.99 K/uL (4.8-10.8)
[2019-06-13 15:29] LABS: Albumin Level 1.6 gm/dl (3.4-5.0); BUN Creatinine Ratio 16.4 (10-20); Calcium 7.9 mg/dl (8.5-10.1); Creatinine Clr Calc Pharmacy 21.9 ml/min; Est GFR (African American) 18.4; Est GFR (Non-African American) 15.8; Potassium 3.8 mmol/L (3.5-5.1)
[2019-06-13 15:32] LABS: Albumin Globulin Ratio 0.4 (0.9-2); Bilirubin,Total 0.3 mg/dl (0.2-1); Globulin 3.9 gm/dl (2.5-4.0); Total Protein 5.5 gm/dl (6.4-8.2)
[2019-06-13] MEDS ORDERED: PANTOprazole 80 MG in DEXTROSE 5% 100 ML IV ONE (15:45)
[2019-06-13 15:46] LABS: INR 1.1 (0.9-1.1); Partial Thromboplastin Ratio 1.1; Partial Thromboplastin Time 28.5 Seconds (21.0-31.0); Prothrombin Time 11.1 Seconds (9.0-12.0)
[2019-06-13] MEDS ORDERED: PANTOprazole 40 MG in DEXTROSE 5% 100 ML IV SCH (16:00)
[2019-06-13] MEDS ORDERED: PANTOprazole 40 MG in SYRINGE 0 ML IV SCH (16:30)
[2019-06-13 16:45] LABS: Mean Corpuscular Hgb Conc 32.6 g/dL (32-36)
[2019-06-13 16:47] LABS: Basophils # (auto) 0.04 K/uL (0-0.2); Basophils % (auto) 0.3 %; Echinocytes 1+; Eosinophils % (auto) 1.4 %; Immature Granulocytes # (auto) 0.07 K/uL (0.00-0.02); Immature Granulocytes % (auto) 0.5 %; Lymphocytes # (auto) 5.26 K/uL (1.2-3.4); Lymphocytes % (auto) 37.6 %; Monocytes # (auto) 0.79 K/uL (0.11-0.59); Monocytes % (auto) 5.6 %; Neutrophils # (auto) 7.63 K/uL (1.4-6.5); Neutrophils % (auto) 54.6 %
--- NOTE | 2019-06-13 17:08 | History & Physical Report ---
Date of Service June 13, 2019 Assessment & Plan (1) Elevated serum creatinine: Cr increased from 2.4 to 3.5 today. Unclear etiology at this stage. Will avoid IV fluids as currently appears hypervolemic. Consult nephrology. I&Os and daily weights Patient appears to be much more adverse to dialysis treatment at present, although possibly ameanable if thought to be temporary. (2) Chronic kidney disease, stage IV (severe): New baseline on discharge from [facility] around 2.6. Now increased to 3.5. As above. (3) History of GI bleed: Drop of Hgb as outpatient from 8.[address] Carney's note. Sudden onset fatigue this morning concerning for further bleeding although Hgb now 8.5. IV pantoprazole ordered prior to Hgb level coming back. Can now be switched to PO. Patient type and screened. As per [facility] discharge notes bleed suspected due to AVNs on colonoscopy rather than submucosal lesion on EGD, despite melena stools and he was not prescribed pantoprazole on discharge. No further melena since colonoscopy at [facility]. (4) DNR (do not resuscitate) discussion: Discussed with patient and his . Wishes (5) DVT prophylaxis: Given concern for GI bleed until hemoglobin level will not restart anticoagulation at this stage SCDs only (6) Discharge planning issues: Will need PT/OT prior to discharge. Suspected discharge back to [facility] once medically stable. History of Present Illness Primary Care Provider: Jovany Stephenson MD 78 year old male direct admission from [facility] due to rising creatinine from 2.4 to 3.6 and hemoglobin drop from 8.6 to 7.6. 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 The patient also notes waking up with generalized fatigue this morning and has felt generally off today but otherwise feeling his normal self. He denies any chest pain, shortness of breath or dizziness. With regards to his urine output he reports this has been good. Producing a lot of urine with bumex use. He denies any dysuria, change in smell or frequency. No new back pain. He denies any recurrent abdominal pain, change in bowels, nausea or vomiting. He last had a formed bowel movement this morning with no recurrence of melena. He gates a complicated recent history, admitted to [facility] from May 14 to May 31 2019 due to 3 weeks of abdominal pain. He was subsequently diagnosed with Citrobacter bacteremia causing septic shock from necrotic strangulated small bowel obstruction in a right inguinal hernia. He underwent small bowel resection on May 14 and was transferred to the ICU post operatively due to hypotension requiring vasopressors for 3 days. He was left intubated due to high oxygen demand with suspected aspiration pneumonitis / ARDS. Extubated 05/18. Citrobacter bacteremia initially treated with IV Zosyn, then switched to Augmentin (last day of treatment ). Acute renal failure post operatively with acute tubular necrosis - requiring dialysis since 05/16/2019, baseline Cr 2.1 prior to this admission. Right perm catheter insertion 05/24/2019. He has not required further dialysis since transferring to [facility] on 05/31/2019. He was transferred due to recurrent GI bleeding with melena requiring total 11 units PRBCs over a 6 day period. Initially in setting of Eliquis use but this has subsequently been held and not restarted. 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 These were cauterized and he was discharged on famotidine only, no PPI. ASA was restarted on discharge but Eliquis still held. He was discharged from [facility] to [facility] on 06/08/2019 and initially was doing well up until today. Allergies Allergy/AdvReac Type Severity Reaction Status Date / Time latex Allergy Unknown LOCAL SKIN Verified 05/14/19 17:23 IRRITATION lisinopril Allergy Unknown hyperkalemi Verified 05/14/19 17:23 a sulfamethoxazole AdvReac increases Verified 05/14/19 17:23 [From Bactrim] potassium trimethoprim [From Bactrim] AdvReac increases Verified 05/14/19 17:23 potassium Home Medications Home Medications Medication Instructions Recorded Confirmed Type ascorbic acid (vitamin C) 1,000 mg PO QAM 10/08/18 06/13/19 History garlic 1,000 mg PO QAM 10/08/18 05/14/19 History multivitamin 1 tab PO QAM 10/08/18 06/13/19 History pravastatin 10 mg PO QAM 10/08/18 05/14/19 History febuxostat [Uloric] 40 mg PO QAM 12/14/18 06/13/19 History cholecalciferol (vitamin D3) 25 1,000 units PO QAM 01/17/19 06/13/19 History mcg (1,000 unit) capsule fluvoxamine 100 mg PO HS 03/03/19 05/14/19 History apixaban 5 mg tablet 5 mg PO BID #180 tab 04/06/19 05/14/19 Rx ipratropium bromide 42 mcg (0.06 2 spray INTRANASAL BID #15 ml 04/07/19 06/13/19 Rx %) nasal spray aspirin 81 mg tablet,delayed 81 mg PO QAM 04/27/19 05/14/19 History release metoprolol tartrate 25 mg tablet 12.5 mg PO AMPM tab 04/27/19 05/14/19 History cefuroxime axetil 500 mg tablet 500 mg PO BID #20 tab 05/13/19 05/14/19 Rx Cholest Off 0 mg PO BID 05/14/19 05/14/19 History PreserVision AREDS-2 1 tab PO BID 05/14/19 06/13/19 History amlodipine 5 mg PO QAM 05/14/19 06/13/19 History famotidine 40 mg PO QAM 05/14/19 06/13/19 History gabapentin See Rx Instructions mg PO 05/14/19 05/14/19 History DIRECTED glipizide 5 mg PO QAM 05/14/19 05/14/19 History lisinopril 5 mg PO QAM 05/14/19 05/14/19 History omega-3 fatty acids-fish oil [Fish 2,400 cap PO QAM 05/14/19 05/14/19 History Oil] torsemide 10 mg PO QAM 05/14/19 05/14/19 History bumetanide 2 mg 06/13/19 History carvedilol 6.25 mg PO BID 06/13/19 06/13/19 History Past Med/Surg History Medical History (Updated 06/14/19 @ 07:30 by Sandro Elizabeth MD) Acute respiratory failure with hypoxia Admitted to intensive care unit Adrenal nodule Afib Arthritis Aspiration into airway Asymptomatic cholelithiasis Cataracts, both eyes RIGHT EYE BEING DONE FIRST Chronic kidney disease, stage III (moderate) (Resolved) Constipation Coronary arteriosclerosis Delirium Diabetes Diastolic dysfunction Encounter for pre-operative examination GERD (gastroesophageal reflux disease) High cholesterol History of stress test 2009 [place] D/T PASSED OUT WENT TO [facility]. 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 HAS RECORD OF THIS Hx of fall 09/2018 - SEEN IN ED - HAD CT OF HEAD - NEGATIVE Melena Mitral regurgitation Normal pressure hydrocephalus Peripheral artery disease LEFT LEG Renal insufficiency Severe sepsis with septic shock Thrombocytopenia (Resolved) Surgical History (Updated 06/13/19 @ 17:12 by Sandro Elizabeth MD) History of back surgery L3-L4 History of left hip replacement History of parathyroidectomy (Resolved) PARTIAL History of right hip replacement X2 Hx of hernia repair Post-operative state Social History Preferred Language: Sami Communication Ability: Effective Melting Furnace Skimmer Required: No Beliefs That Will Affect Care: None Current Living Situation: Personal Care Facility Other Information That Helps Us Care for You: No Feels Safe at Home: Yes Smoking Status: Former smoker Tobacco Type: cigarettes ; Do You Dip or Chew Tobacco: No ; Smoking End Date: 1984 ; Second Hand Exposure: No ; Tobacco Cessation Education Requested by Patient: No Hx Alcohol Use: No Hx Substance Use: No Review of Systems Review of Systems: All systems reviewed & are unremarkable except as noted in HPI & below Constitutional: + fatigue; no fever and no chills Physical Exam Constitutional: well developed; + not well nourished and no acute distress Eyes: + anicteric sclerae; normal pupil size ENMT: external ear and nose normal, oropharynx normal slightly pale mucus membranes Neck: normal visual inspection and trachea midline Respiratory: normal respiratory effort, lungs clear to auscultation Cardiovascular: Rate/Rhythm: regular rate and regular rhythm Heart Sounds: + murmur Extremities: normal capillary refill and + pedal edema (3+ to abdomen); no calf tenderness Chest (Breasts): Chest: + vascular access device or port (right perm cath present without surrounding cellulitis) Gastrointestinal (Abdomen): normal bowel sounds, soft, nontender, no hepatosplenomegaly Musculoskeletal: no cyanosis or clubbing, extremities motor strength 5/5 Skin: no rashes, warm and dry Neurologic: moves all extremities and awake; no focal motor deficits and not confused Motor/Sensory: no tremor and no pronator drift Psychiatric: A+Ox3, euthymic affect Lymphatic: no cervical or axillary lymphadenopathy Results & Data Vital Signs (Past 12 Hours) Vital Signs Temp Pulse Resp BP Pulse Ox 06/13/19 14:01 36.5 C 60 18 154/67 H 99 Code Status & VTE Plan VTE Prophylaxis Plan VTE Prophylaxis will be ordered: Yes PG Care Time/CCT Total # of Minutes Spent Total Time Spent with Patient: Total time spent is greater than 50% in coordination of care (as documented) at patient's floor/unit and/or counseling patient:
[2019-06-13] MEDS: PRAVASTATIN SOD 10 MG TAB PO SCH (17:16)
--- NOTE | 2019-06-13 18:56 | Ultrasound Report ---
EXAMINATION: RENAL ULTRASOUND CLINICAL HISTORY: Acute renal insufficiency. History of chronic renal disease. COMPARISON STUDY: Noncontrast CT scan dated 05/14/2019 FINDINGS: The right kidney measures 11.9 cm. The left kidney measures 9.8 cm.. There is no evidence of hydronephrosis. There are multiple right renal cysts, the largest of which measures 23 mm. There is a 23 mm left renal cyst. The left ureteral jet was not visualized. Incidental note is made of gallbladder calculi and sludge. There is mild pericholecystic fluid, and mild perinephric fluid. The technologist reports a negative sonographic Arreola sign. IMPRESSION : 1. Bilateral renal cysts 2. No evidence of hydronephrosis 3. Gallbladder calculi and sludge 4. Mild pericholecystic and perinephric fluid. ACT 112: Negative or not required by law. Electronically signed by: Baldemar Meyers M.D. 06/13/2019 6:55 PM
[2019-06-13 19:02] LABS: Appearance Urine Clear (Clear); Bacteria Urine Automated Negative (Negative); Bilirubin Urine Negative (Negative); Blood Urine 1+ (Negative); Color Urine Yellow; Glucose Urine UA Negative (Negative); Ketones Urine Negative (Negative); Leukocyte Esterase Urine 1+ (Negative); Nitrite Urine Negative (Negative); Protein Urine Negative (Negative); RBC Urine Automated 0-4 /hpf (0-4); Specific Gravity Urine 1.011 (1.000-1.030); Urobilinogen Urine Negative (Negative)
[2019-06-13] MEDS: carvediloL 6.25 MG TAB PO SCH (20:24)
[2019-06-13] MEDS: CEROVITE ADV FORMULA TAB PO SCH (20:25)
[2019-06-13] MEDS: GABAPENTIN 100 MG CAP PO SCH (20:25)
[2019-06-13] MEDS ORDERED: METOPROLOL TARTRATE 25 MG TAB PO SCH (21:00)
[2019-06-13] MEDS ORDERED: DEXTROSE 50% 50 ML SYRINGE IV PRN (22:00)
[2019-06-13] MEDS ORDERED: GLUCOSE 10 TABS/TUBE PO PRN (22:00)
[2019-06-13] MEDS ORDERED: CARBOHYDRATES FOR HYPOGLYCEMIA PO PRN (22:00)
[2019-06-13] MEDS ORDERED: GLUCOSE 40% GEL 15 GM TUBE PO PRN (22:00)
[2019-06-13] MEDS ORDERED: GLUCAGON FOR INJ 1 MG VIAL SQ PRN (22:00)
[2019-06-13 22:39] LABS: Creatinine Urine Random 65.1 mg/dl; Protein Creatinine Ratio Urine 0.4 (0-0.2); Total Protein Urine Random 28.3 mg/dl (0-11.9)
[2019-06-14 06:18] LABS: Hematocrit (blood only) 23.1 % (42-52); Hemoglobin 7.6 g/dL (14.0-18.0); Mean Corpuscular Hemoglobin 29.1 pg (25-34); Mean Corpuscular Hgb Conc 32.9 g/dL (32-36); Mean Corpuscular Volume 88.5 fL (80-100); Mean Platelet Volume 8.5 fL (7.4-10.4); Platelet Count 284 K/uL (130-400); RDW Coefficient of Variation 14.7 % (11.5-14.5); RDW Standard Deviation 47.5 fL (36.4-46.3); Red Blood Count 2.61 M/uL (4.7-6.1); White Blood Count 13.31 K/uL (4.8-10.8)
[2019-06-14 06:53] LABS: Albumin Level 1.4 gm/dl (3.4-5.0); BUN Creatinine Ratio 18.1 (10-20); Calcium 7.8 mg/dl (8.5-10.1); Creatinine Clr Calc Pharmacy 22.6 ml/min; Est GFR (Non-African American) 16.4; Potassium 3.5 mmol/L (3.5-5.1)
[2019-06-14 06:56] LABS: Albumin Globulin Ratio 0.4 (0.9-2); Bilirubin,Total 0.3 mg/dl (0.2-1); Globulin 3.6 gm/dl (2.5-4.0)
[2019-06-14 07:41] LABS: Basophils # (auto) 0.02 K/uL (0-0.2); Basophils % (auto) 0.2 %; Eosinophils # (auto) 0.27 K/uL (0-0.5); Immature Granulocytes # (auto) 0.07 K/uL (0.00-0.02); Immature Granulocytes % (auto) 0.5 %; Lymphocytes # (auto) 5.82 K/uL (1.2-3.4); Lymphocytes % (auto) 43.7 %; Monocytes # (auto) 1.06 K/uL (0.11-0.59); Neutrophils # (auto) 6.07 K/uL (1.4-6.5); Neutrophils % (auto) 45.6 %; Polychromasia 1+
[2019-06-14] MEDS: MULTIVITAMIN TAB PO SCH (08:39)
[2019-06-14] MEDS: AMLODIPINE BESYLATE 5 MG TAB PO SCH (08:39)
[2019-06-14] MEDS: PANTOprazole 40 MG TAB PO SCH (08:40)
[2019-06-14] MEDS: FEBUXOSTAT 40 MG TABLET PO SCH (08:40)
[2019-06-14] MEDS: carvediloL 6.25 MG TAB PO SCH ×2 (08:40→20:29)
[2019-06-14] MEDS: INSULIN ASPART 100 UNITS/ML 3 ML PEN SC SCH ×4 (08:43→20:38)
--- NOTE | 2019-06-14 11:14 | Nephrology Consultation ---
Date of Consultation June 14, 2019 Assessment & Plan (1) Acute renal insufficiency: Tyler was admitted directly for acute worsening of renal function and anemia. He recently had dialysis requiring acute kidney injury, on dialysis for 2 weeks, has been off of dialysis for almost a week. Recently he has baseline creatinine was staying around 2.2-2.3, renal function worsened to creatinine 3.6 on lab history. Has been stable over last 24 hour, electrolyte acceptable. Slightly volume overloaded however no respiratory distress, blood pressure well controlled. Has been voiding normally. Hemoglobin has been variable although no clear sign of GI bleeding. --although renal function slightly worsened compared to recent lab, staying relatively stable over last 24 hours. Electrolyte acceptable. No indication for dialysis at this time. --okay to resume Bumex 2 milligram p.o. daily, monitor intake and output, would keep even or slightly negative, if significantly negative, consider decreasing Bumex to just 1 milligram daily --suggest repeat hemoglobin in the afternoon and if hemoglobin continues to drop, may need GI evaluation --dose medications for GFR less than 30. --had long discussion with pt and his Thank you for allowing me to participate in your patient's care. It was a pleasure to see Tyler (2) Hypertension: (3) Anemia: History of Present Illness Reason for Consultation: Acute kidney injury and anemia Attending Physician: Sandro Elizabeth MD History of Present Illness Tyler was admitted to the hospital yesterday as a direct admit for recent worsening of renal function and drop in hemoglobin. He recently had a complicated hospital course when he developed acute kidney injury with ATN after exploratory laparotomy for bowel obstruction. He required dialysis via tunneled dialysis catheter, had dialysis for almost 2 weeks. Has been off of dialysis for last almost 10 days. During last hospital course he developed anemia an acute drop in hemoglobin to 6.0. EGD showed duodenal polyp but no active bleeding. Subsequently he was transferred to [facility] where he had colonoscopy showing colonic polyp and AVM. Eventually GI bleeding. Hemoglobin stabilized and he was discharged to [facility]. During his stay at [facility] he did not have any dialysis and on discharge his creatinine was 2.2. On 06/13/2019 he had repeat lab done showing acute rise in creatinine to 3.6, hemoglobin dropped to 7.5. He has been otherwise feeling well without any sign of active GI bleeding. Has been voiding normally. Because of sudden drop in hemoglobin and worsening of renal function he was admitted to the hospital as a direct admit. He was on Bumex 2 milligram daily which was on hold since yesterday. He reports urinating a bit less off of Bumex. He has tunneled dialysis catheter in place. His renal function staying relatively stable over last 24 hours, creatinine 3.5, BUN around 60. Electrolyte acceptable. Blood pressure control. Since slightly hyper volume ache but no significant shortness of breath. On admission hemoglobin was found to be 8.5 which again dropped to 7.6 this morning. Has been otherwise feeling at his baseline and denies any further evidence of GI bleeding. Allergies Allergy/AdvReac Type Severity Reaction Status Date / Time latex Allergy Unknown LOCAL SKIN Verified 05/14/19 17:23 IRRITATION lisinopril Allergy Unknown hyperkalemi Verified 05/14/19 17:23 a sulfamethoxazole AdvReac increases Verified 05/14/19 17:23 [From Bactrim] potassium trimethoprim [From Bactrim] AdvReac increases Verified 05/14/19 17:23 potassium Home Medications Home Medications Medication Instructions Recorded Confirmed Type ascorbic acid (vitamin C) 1,000 mg PO QAM 10/08/18 06/13/19 History garlic 1,000 mg PO QAM 10/08/18 05/14/19 History multivitamin 1 tab PO QAM 10/08/18 06/13/19 History pravastatin 10 mg PO QAM 10/08/18 05/14/19 History febuxostat [Uloric] 40 mg PO QAM 12/14/18 06/13/19 History cholecalciferol (vitamin D3) 25 1,000 units PO QAM 01/17/19 06/13/19 History mcg (1,000 unit) capsule fluvoxamine 100 mg PO HS 03/03/19 05/14/19 History apixaban 5 mg tablet 5 mg PO BID #180 tab 04/06/19 05/14/19 Rx ipratropium bromide 42 mcg (0.06 2 spray INTRANASAL BID #15 ml 04/07/19 06/13/19 Rx %) nasal spray aspirin 81 mg tablet,delayed 81 mg PO QAM 04/27/19 05/14/19 History release metoprolol tartrate 25 mg tablet 12.5 mg PO AMPM tab 04/27/19 05/14/19 History cefuroxime axetil 500 mg tablet 500 mg PO BID #20 tab 05/13/19 05/14/19 Rx Cholest Off 0 mg PO BID 05/14/19 05/14/19 History PreserVision AREDS-2 1 tab PO BID 05/14/19 06/13/19 History amlodipine 5 mg PO QAM 05/14/19 06/13/19 History famotidine 40 mg PO QAM 05/14/19 06/13/19 History gabapentin See Rx Instructions mg PO 05/14/19 05/14/19 History DIRECTED glipizide 5 mg PO QAM 05/14/19 05/14/19 History lisinopril 5 mg PO QAM 05/14/19 05/14/19 History omega-3 fatty acids-fish oil [Fish 2,400 cap PO QAM 05/14/19 05/14/19 History Oil] torsemide 10 mg PO QAM 05/14/19 05/14/19 History bumetanide 2 mg 06/13/19 History carvedilol 6.25 mg PO BID 06/13/19 06/13/19 History Patient History Medical History (Updated 06/14/19 @ 07:30 by Sandro Elizabeth MD) Acute respiratory failure with hypoxia Admitted to intensive care unit Adrenal nodule Afib Arthritis Aspiration into airway Asymptomatic cholelithiasis Cataracts, both eyes RIGHT EYE BEING DONE FIRST Chronic kidney disease, stage III (moderate) (Resolved) Constipation Coronary arteriosclerosis Delirium Diabetes Diastolic dysfunction Encounter for pre-operative examination GERD (gastroesophageal reflux disease) High cholesterol History of stress test 2009 [place] D/T PASSED OUT WENT TO [facility]. 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 Hx of fall 09/2018 - SEEN IN ED - HAD CT OF HEAD - NEGATIVE Melena Mitral regurgitation Normal pressure hydrocephalus Peripheral artery disease LEFT LEG Renal insufficiency Severe sepsis with septic shock Thrombocytopenia (Resolved) Surgical History (Updated 06/13/19 @ 17:12 by Sandro Elizabeth MD) History of back surgery L3-L4 History of left hip replacement History of parathyroidectomy (Resolved) PARTIAL History of right hip replacement X2 Hx of hernia repair Post-operative state Social History Preferred Language: Maori Communication Ability: Effective Analytic Programmer Required: No Beliefs That Will Affect Care: None Current Living Situation: Personal Care Facility Other Information That Helps Us Care for You: No Feels Safe at Home: Yes Smoking Status: Former smoker Tobacco Type: cigarettes ; Do You Dip or Chew Tobacco: No ; Smoking End Date: 1984 ; Second Hand Exposure: No ; Tobacco Cessation Education Requested by Patient: No Hx Alcohol Use: No Hx Substance Use: No Review of Systems Review of Systems: All systems reviewed & are unremarkable except as noted in HPI & below Physical Exam Constitutional: WD/WN, vitals as above + ill appearing; no acute distress Eyes: PERRL, conjunctivae normal, anicteric sclerae ENMT: external ear and nose normal, oropharynx normal Ears: no hearing impairment Neck: trachea midline Respiratory: normal respiratory effort, lungs clear to auscultation no cough Auscultation: no crackles, no rales and no wheezes Cardiovascular: Rate/Rhythm: regular rate and regular rhythm Heart Sounds: normal S1 and normal S2 Extremities: + edema (Trace bilateral lower extremity edema) Gastrointestinal (Abdomen): normal bowel sounds, soft, nontender, no hepatosplenomegaly Percussion/Palpation: abdomen nontender, no guarding and abdomen not rigid Musculoskeletal: Extremities: extremities normal to inspection Gait: normal gait Skin: no rashes, warm and dry + pallor; no rashes and no ulcers Neurologic: moves all extremities and awake Psychiatric: A+Ox3, euthymic affect Results & Data Vital Signs (Past 12 Hours) Vital Signs Temp Pulse Resp BP Pulse Ox 06/14/19 08:06 36.8 C 58 L 16 149/67 H 91 PG Care Time/CCT Total # of Minutes Spent Total Time Spent with Patient: Total time spent is greater than 50% in coordination of care (as documented) at patient's floor/unit and/or counseling patient: (1) Hypertension Hypertension type: essential hypertension Qualified Code(s): I10 - Essential (primary) hypertension (2) Anemia Anemia type: iron deficiency Iron deficiency anemia type: other iron deficiency Qualified Code(s): D50.8 - Other iron deficiency anemias
[2019-06-14] MEDS ORDERED: BUMETANIDE 1 MG TAB PO ONE (11:30)
[2019-06-14] MEDS: PRAVASTATIN SOD 10 MG TAB PO SCH (16:33)
--- NOTE | 2019-06-14 18:19 | Hospitalist Progress Note ---
Date of Service June 14, 2019 Assessment & Plan (1) Elevated serum creatinine: Stable Creatinine overnight. Unclear cause for trend back up since discharge from [facility] as no change in his bumex, he continues to make good urine. He did get a dose prior to admission yesterday. Renal US - no evidence of hydronephrosis. Contacted [facility], placed on bumex 1mg daily on and switched to 2mg daily since . Strict I&Os - I suspect his output is much more than that recorded based on his description Daily weight - recorded as the same since admission (2) Pitting edema: Suspect third spacing mostly due to hypoalbuminemia due to poor nutritiona l status. Reports worsening since discharge from [facility] possibly due to having his legs down more. Interestingly his Proteinuria has actually improved since February prior to his sepsis admission. Recommend DULCE cruz as able. (3) Chronic kidney disease, stage IV (severe): New baseline on discharge from [facility] around 2.6 (stable for at least 3 days prior to discharge on the ). Now increased to 3.4. As above. (4) Leukocytosis: Also trending up since discharge from [facility]. However WBC 14 on 06/10 therefore no significant change since then. No signs or symptoms of infection other than chronic sinusitis. Blood and urine cultures pending from admission. Holding off antibiotics but given perm catheter makes this the most likely source if there is one, especially given recent citrobacter bacteremia. No change in BM or abdominal pain to suggest abdominal source. No urine symptoms or CVA tenderness to suggest urinary source. No hypoxia or lung auscultation findings to suggest pulmonary source. Mild pericholecystic and perinephric fluid noted on US - unclear significance to leukocytosis at present. Continue to hold off antibiotics unless definitive sign of infection present. (5) History of GI bleed: Hgb initially improved from outpatient labs. Currently 7.6 but asymptomatic. Unclear if represents trend down at present. Continue PO pantoprazole Patient type and screened. As per [facility] discharge notes bleed suspected due to AVNs on colonoscopy rather than submucosal lesion on EGD, despite melena stools and he was not prescribed pantoprazole on discharge. No further melena since colonoscopy at [facility]. (6) Anemia: as above (7) Hypertension: Increase amlodipine to 10mg daily (8) Depression: Continue fluvoxamine HS (9) DVT prophylaxis: Given concern for GI bleed until hemoglobin level will not restart anticoagulation at this stage SCDs only (10) DNR (do not resuscitate) discussion: Discussed with patient and his on admission (11) Discharge planning issues: Will need PT/OT prior to discharge. Suspected discharge back to [facility] once medically stable. Subjective No acute events overnight. Unable to accurately measure output due to incontinence, however producing a lot of urine as per patient. No chest pain, dizziness, lightheadedness, shortness of breath. No new symptoms. Review of Systems Review of Systems: All systems reviewed & are unremarkable except as noted in HPI & below Physical Exam Constitutional: well developed; + not well nourished and no acute distress Eyes: + anicteric sclerae; normal pupil size ENMT: external ear and nose normal, oropharynx normal Neck: normal visual inspection and trachea midline Respiratory: normal respiratory effort, lungs clear to auscultation Cardiovascular: Rate/Rhythm: regular rate and regular rhythm Heart Sounds: + murmur (systolic) Extremities: normal capillary refill and + pedal edema (3+ to abdomen); no calf tenderness Chest (Breasts): Chest: + vascular access device or port (right perm cath present without surrounding cellulitis) Gastrointestinal (Abdomen): normal bowel sounds, soft, nontender, no hepatosplenomegaly Musculoskeletal: no cyanosis or clubbing, extremities motor strength 5/5 Skin: no rashes, warm and dry Neurologic: moves all extremities and awake; no focal motor deficits and not confused Motor/Sensory: no tremor and no pronator drift Psychiatric: A+Ox3, euthymic affect Results & Data Vital Signs (Past 12 Hours) Vital Signs Temp Pulse Resp BP BP Pulse Ox 06/14/19 15:15 36.7 C 58 L 22 158/72 H 94 06/14/19 08:06 36.8 C 58 L 16 149/67 H 91 PG Care Time/CCT Total # of Minutes Spent Total Time Spent with Patient: Total time spent is greater than 50% in coordination of care (as documented) at patient's floor/unit and/or counseling patient: (1) Anemia Anemia type: iron deficiency Iron deficiency anemia type: other iron deficiency Qualified Code(s): D50.8 - Other iron deficiency anemias (2) Leukocytosis Leukocytosis type: unspecified Qualified Code(s): D72.829 - Elevated white blood cell count, unspecified (3) Hypertension Hypertension type: essential hypertension Qualified Code(s): I10 - Essential (primary) hypertension
[2019-06-14] MEDS: FLUVOXAMINE MALEATE 50 MG TAB PO SCH (20:29)
[2019-06-14] MEDS: GABAPENTIN 100 MG CAP PO SCH (20:32)
[2019-06-14] MEDS: CEROVITE ADV FORMULA TAB PO SCH (20:32)
[2019-06-15 06:21] LABS: Hematocrit (blood only) 24.2 % (42-52); Mean Corpuscular Hemoglobin 29.2 pg (25-34); Mean Corpuscular Hgb Conc 33.1 g/dL (32-36); Mean Corpuscular Volume 88.3 fL (80-100); Platelet Count 317 K/uL (130-400); RDW Coefficient of Variation 14.9 % (11.5-14.5); RDW Standard Deviation 48.2 fL (36.4-46.3); Red Blood Count 2.74 M/uL (4.7-6.1); White Blood Count 13.15 K/uL (4.8-10.8)
[2019-06-15 06:34] LABS: BUN Creatinine Ratio 17.9 (10-20); Calcium 8.2 mg/dl (8.5-10.1); Creatinine Clr Calc Pharmacy 22.1 ml/min; Est GFR (African American) 18.5; Est GFR (Non-African American) 15.9; Potassium 3.5 mmol/L (3.5-5.1)
[2019-06-15] MEDS: carvediloL 6.25 MG TAB PO SCH ×2 (07:44→20:44)
[2019-06-15] MEDS: AMLODIPINE BESYLATE 5 MG TAB PO SCH (07:44)
[2019-06-15] MEDS: BUMETANIDE 1 MG TAB PO SCH (07:44)
[2019-06-15] MEDS: MULTIVITAMIN TAB PO SCH (07:45)
[2019-06-15] MEDS: PANTOprazole 40 MG TAB PO SCH (07:45)
[2019-06-15] MEDS: FEBUXOSTAT 40 MG TABLET PO SCH (07:45)
[2019-06-15] MEDS: INSULIN ASPART 100 UNITS/ML 3 ML PEN SC SCH ×4 (09:00→20:46)
--- NOTE | 2019-06-15 10:18 | Nephrology Progress Note ---
Date of Service June 15, 2019 Assessment & Plan (1) Acute renal insufficiency: Tyler was admitted directly for acute worsening of renal function and anemia. He recently had dialysis requiring acute kidney injury, on dialysis for 2 weeks, has been off of dialysis for almost a week. Recently he has baseline creatinine was staying around 2.2-2.3, renal function worsened to creatinine 3.6 on lab history. Has been stable over last 24 hour, electrolyte acceptable. Slightly volume overloaded however no respiratory distress, blood pressure well controlled. Has been voiding normally. Hemoglobin has been variable although no clear sign of GI bleeding. Renal function has been staying stable with creatinine around 3.5-3.6, electrolyte acceptable. Blood pressure volume status acceptable. Responding to diuretics. Asymptomatic, denies any uremic symptoms. --would change Bumex to 1 milligram daily on discharge. --no indication for dialysis at this time however if renal function stays where it is now or progressively worsen or volume status worsen, may need to consider dialysis again and in that case it would be most likely chronic dialysis. Encourage patient to think about it and discuss with family and make a decision whether he would like to commit to chronic dialysis. Those decisions can be done as an outpatient with close lab monitoring and follow-up with his primary international nurse Dr. Carney. He should have lab done within few days after discharge and results should be forwarded to his primary international nurse Dr. Carney. --dose medications for GFR less than 30. Will follow while inpatient in however okay to be discharged from Nephrology standpoint. Subjective Tyler was seen and examined in his room this morning. Overall he has been feeling well, denies any shortness of breath, chest pain, fever, chills. He noticed increased urine output after started back on Bumex. Hemoglobin slightly improved to 8.0. Renal function staying essentially saline with acceptable electrolytes. Blood pressure fair. Appetite has been good. Review of Systems Review of Systems: All systems reviewed & are unremarkable except as noted in HPI & below Physical Exam Constitutional: WD/WN, vitals as above + ill appearing; no acute distress Respiratory: normal respiratory effort, lungs clear to auscultation no cough Auscultation: no crackles, no rales and no wheezes Cardiovascular: Rate/Rhythm: regular rate and regular rhythm Heart Sounds: normal S1 and normal S2 Extremities: + edema (Trace bilateral lower extremity edema) Skin: no rashes, warm and dry + pallor; no rashes and no ulcers Neurologic: moves all extremities and awake Psychiatric: A+Ox3, euthymic affect Results & Data Vital Signs (Past 12 Hours) Vital Signs Temp Pulse Resp BP Pulse Ox 06/15/19 07:08 36.6 C 64 20 154/68 H 94 06/14/19 23:50 36.7 C 71 20 156/69 H 94 PG Care Time/CCT Total # of Minutes Spent Total Time Spent with Patient: Total time spent is greater than 50% in coor dination of care (as documented) at patient's floor/unit and/or counseling patient:
[2019-06-15] MEDS: PRAVASTATIN SOD 10 MG TAB PO SCH (17:22)
--- NOTE | 2019-06-15 19:25 | Hospitalist Progress Note ---
Date of Service June 15, 2019 Assessment & Plan (1) Elevated serum creatinine: Stable, suspect new baseline of 3.5. Unclear cause for trend back up since discharge from [facility] as no change in his bumex, he continues to make good urine. Renal US - no evidence of hydronephrosis. [place] [facility] [place] he has been on 2mg daily since Strict I&Os - use condom catheter to measure UO Daily weight - recorded as the same since admission (2) Pitting edema: Suspect third spacing mostly due to hypoalbuminemia due to poor nutritional status. Reports worsening since discharge from [facility] possibly due to having his legs down more. Proteinuria has actually improved since February prior to his sepsis admission. Rx DULCE cruz as able (3) Chronic kidney disease, stage IV (severe): New baseline on discharge from [facility] around 2.6 (stable for at least 3 days prior to discharge on the ). Now increased to 3.49. Not diagnostic of DAVEY. If urine output as much as he reports possible his bumex dose is actually too high - therefore since insurance authorization pending will use condom cath over next 24 hours to accurately measure. (4) Leukocytosis: Also trending up since discharge from [facility]. However WBC 14 on 06/10 therefore no significant change since then. No signs or symptoms of infection other than chronic sinusitis. Blood and urine cultures pending from admission. Holding off antibiotics but given perm catheter makes this the most likely source if there is one, especially given recent citrobacter bacteremia. No change in BM or abdominal pain to suggest abdominal source. No urine symptoms or CVA tenderness to suggest urinary source. No hypoxia or lung auscultation findings to suggest pulmonary source. Mild pericholecystic and perinephric fluid noted on US - unclear significance to leukocytosis at present. Continue to hold off antibiotics unless definitive sign of infection present. Blood cultures negative to date. (5) History of GI bleed: Hgb initially improved from outpatient labs. Currently 8.0, appears to be stable around this amount. Will still continue PO pantoprazole Patient consented and type/screened if requires any blood transfusions overnight. As per [facility] discharge notes bleed suspected due to AVMs on colonoscopy rather than submucosal lesion on EGD. No further melena since colonoscopy at [facility]. (6) Anemia: as above (7) Hypertension: Increase amlodipine to 10mg daily (8) Depression: Continue fluvoxamine HS (9) DVT prophylaxis: Recommend holding off ASA and Eliquis until f/u O/P labs to check for stability. SCDs only (10) DNR (do not resuscitate) discussion: Discussed with patient and his on admission (11) Discharge planning issues: Medically stable for discharge pending insurance authorization to [place] Subjective No acute events overnight. Still not recording output accurately as patient assures me he is producing a lot of urine. Remains asymptomatic. Review of Systems Review of Systems: All systems reviewed & are unremarkable except as noted in HPI & below Physical Exam Constitutional: well developed; + not well nourished and no acute distress Eyes: + anicteric sclerae; normal pupil size ENMT: external ear and nose normal, oropharynx normal Neck: normal visual inspection and trachea midline Respiratory: normal respiratory effort, lungs clear to auscultation Cardiovascular: Rate/Rhythm: regular rate and regular rhythm Heart Sounds: + murmur (systolic) Extremities: normal capillary refill and + pedal edema (3+ to abdomen); no calf tenderness Chest (Breasts): Chest: + vascular access device or port (right perm cath present without surrounding cellulitis) Musculoskeletal: no cyanosis or clubbing, extremities motor strength 5/5 Skin: no rashes, warm and dry Neurologic: moves all extremities and awake; not confused Psychiatric: A+Ox3, euthymic affect Results & Data Vital Signs (Past 12 Hours) Vital Signs Temp Pulse Resp BP Pulse Ox 06/15/19 15:00 36.3 C L 67 18 152/65 H 96 PG Care Time/CCT Total # of Minutes Spent Total Time Spent with Patient: Total time spent is greater than 50% in coordination of care (as documented) at patient's floor/unit and/or counseling patient: (1) Anemia Anemia type: iron deficiency Iron deficiency anemia type: other iron deficiency Qualified Code(s): D50.8 - Other iron deficiency anemias (2) Leukocytosis Leukocytosis type: unspecified Qualified Code(s): D72.829 - Elevated white blood cell count, unspecified (3) Hypertension Hypertension type: essential hypertension Qualified Code(s): I10 - Essential (primary) hypertension
[2019-06-15] MEDS: GABAPENTIN 100 MG CAP PO SCH (20:44)
[2019-06-15] MEDS: CEROVITE ADV FORMULA TAB PO SCH (20:44)
[2019-06-15] MEDS: FLUVOXAMINE MALEATE 50 MG TAB PO SCH (20:44)
[2019-06-16 05:34] LABS: Hematocrit (blood only) 25.7 % (42-52); Hemoglobin 8.4 g/dL (14.0-18.0); Mean Corpuscular Hemoglobin 28.7 pg (25-34); Mean Corpuscular Hgb Conc 32.7 g/dL (32-36); Mean Corpuscular Volume 87.7 fL (80-100); Mean Platelet Volume 8.5 fL (7.4-10.4); Platelet Count 317 K/uL (130-400); RDW Coefficient of Variation 14.8 % (11.5-14.5); RDW Standard Deviation 47.5 fL (36.4-46.3); Red Blood Count 2.93 M/uL (4.7-6.1); White Blood Count 14.34 K/uL (4.8-10.8)
[2019-06-16 05:52] LABS: Albumin Level 1.6 gm/dl (3.4-5.0); BUN Creatinine Ratio 18.9 (10-20); Calcium 7.8 mg/dl (8.5-10.1); Creatinine Clr Calc Pharmacy 23.5 ml/min; Est GFR (African American) 19.9; Est GFR (Non-African American) 17.2; Phosphorus 4.4 mg/dl (2.5-4.9); Potassium 3.7 mmol/L (3.5-5.1)
[2019-06-16] MEDS: FEBUXOSTAT 40 MG TABLET PO SCH (08:42)
[2019-06-16] MEDS: PANTOprazole 40 MG TAB PO SCH (08:42)
[2019-06-16] MEDS: INSULIN ASPART 100 UNITS/ML 3 ML PEN SC SCH ×2 (08:42→12:41)
[2019-06-16] MEDS: carvediloL 6.25 MG TAB PO SCH (08:43)
[2019-06-16] MEDS: BUMETANIDE 1 MG TAB PO SCH (08:43)
[2019-06-16] MEDS: MULTIVITAMIN TAB PO SCH (08:43)
[2019-06-16] MEDS ORDERED: EPOETIN ALFA 20,000 UNITS/ML VIAL SQ SCH (09:00)
[2019-06-16] MEDS ORDERED: AMLODIPINE BESYLATE 5 MG TAB PO SCH (09:00)
[2019-06-16] MEDS ORDERED: BUMETANIDE 1 MG TAB PO SCH (09:30)
--- NOTE | 2019-06-16 11:51 | Nephrology Progress Note ---
Date of Service June 16, 2019 Assessment & Plan (1) Acute renal insufficiency: Tyler was admitted directly for acute worsening of renal function and anemia. He recently had dialysis requiring acute kidney injury, on dialysis for 2 weeks, has been off of dialysis for almost a week. Recently he has baseline creatinine was staying around 2.2-2.3, renal function worsened to creatinine 3.6 on lab history. Has been stable over last 24 hour, electrolyte acceptable. Slightly volume overloaded however no respiratory distress, blood pressure well controlled. Has been voiding normally. Hemoglobin has been variable although no clear sign of GI bleeding. Renal function has been staying relatively stable with creatinine around 3.5- 3.6, electrolyte acceptable. Blood pressure and volume status acceptable. Responding to diuretics. Asymptomatic, denies any uremic symptoms. --change Bumex to 1 milligram daily. --no indication for dialysis at this time however if renal function stays where it is now or progressively worsen or volume status worsen, may need to consider dialysis again and in that case it would be most likely chronic dialysis. Encourage patient to think about it and discuss with family and make a decision whether he would like to commit to chronic dialysis. Those decisions can be done as an outpatient with close lab monitoring and follow-up with his primary perinatal coordinator Dr. Carney. He should have lab done within few days after discharge and results should be forwarded to his primary perinatal coordinator Dr. Carney. --dose medications for GFR less than 30. Will follow while inpatient in however okay to be discharged from Nephrology standpoint. Subjective Tyler was seen and examined in his room this morning. Overall he has been feeling well, denies any shortness of breath, chest pain, fever, chills. He noticed increased urine output after started back on Bumex. Hemoglobin slightly improved to 8.4. Renal function staying essentially same with acceptable electrolytes. Blood pressure fair. Appetite has been good. Review of Systems Review of Systems: All systems reviewed & are unremarkable except as noted in HPI & below Physical Exam Constitutional: well developed and well nourished; no acute distress Respiratory: normal respiratory effort, lungs clear to auscultation Cardiovascular: RRR, no murmur, no edema Neurologic: moves all extremities and awake; not confused Psychiatric: A+Ox3, euthymic affect Results & Data Vital Signs (Past 12 Hours) Vital Signs Temp Pulse Resp BP Pulse Ox 12/26/19 06:47 36.5 C 62 20 158/69 H 95 PG Care Time/CCT Total # of Minutes Spent Total Time Spent with Patient: Total time spent is greater than 50% in coordination of care (as documented) at patient's floor/unit and/or counseling patient:
--- NOTE | 2019-06-16 13:48 | Discharge Summary ---
Date of Service June 16, 2019 Admission HPI Per Admitting Provider 78 year old male direct admission from [facility] due to rising creatinine from 2.4 to 3.6 and hemoglobin drop from 8.6 to 7.6. These labs were discussed with his gun stocker and recommended direct admission with nephrology consult. The patient also notes waking up with generalized fatigue this morning and has felt generally off today but otherwise feeling his normal self. He denies any chest pain, shortness of breath or dizziness. With regards to his urine output he reports this has been good. Producing a lot of urine with bumex use. He denies any dysuria, change in smell or frequency. No new back pain. He denies any recurrent abdominal pain, change in bowels, nausea or vomiting. He last had a formed bowel movement this morning with no recurrence of melena. He gates a complicated recent history, admitted to [facility] from May 14 to May 31 2019 due to 3 weeks of abdominal pain. He was subsequently diagnosed with Citrobacter bacteremia causing septic shock from necrotic strangulated small bowel obstruction in a right inguinal hernia. He underwent small bowel resection on May 14 and was transferred to the ICU post operatively due to hypotension requiring vasopressors for 3 days. He was left intubated due to high oxygen demand with suspected aspiration pneumonitis / ARDS. Extubated 05/18. Citrobacter bacteremia initially treated with IV Zosyn, then switched to Augmentin (last day of treatment ). Acute renal failure post operatively with acute tubular necrosis - requiring dialysis since 05/16/2019, baseline Cr 2.1 prior to this admission. Right perm catheter insertion 05/24/2019. He has not required further dialysis since transferring to [facility] on 05/31/2019. He was transferred due to recurrent GI bleeding with melena requiring total 11 units PRBCs over a 6 day period. Initially in setting of Eliquis use but this has subsequently been held and not restarted. 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 These were cauterized and he was discharged on famotidine only, no PPI. ASA was restarted on discharge but Eliquis still held. He was discharged from [place] to [facility] on 06/08/2019 and initially was doing well up until today. Admission Exam Per Admitting Provider Constitutional: well developed; + not well nourished and no acute distress Eyes: + anicteric sclerae; normal pupil size ENMT: external ear and nose normal, oropharynx normal slightly pale mucus membranes Neck: normal visual inspection and trachea midline Respiratory: normal respiratory effort, lungs clear to auscultation Cardiovascular: Rate/Rhythm: regular rate and regular rhythm Heart Sounds: + murmur Extremities: normal capillary refill and + pedal edema (3+ to abdomen); no calf tenderness Chest (Breasts): Chest: + vascular access device or port (right perm cath present without surrounding cellulitis) Gastrointestinal (Abdomen): normal bowel sounds, soft, nontender, no hepatosplenomegaly Musculoskeletal: no cyanosis or clubbing, extremities motor strength 5/5 Skin: no rashes, warm and dry Neurologic: moves all extremities and awake; no focal motor deficits and not confused Motor/Sensory: no tremor and no pronator drift Psychiatric: A+Ox3, euthymic affect Lymphatic: no cervical or axillary lymphadenopathy Principal Diagnosis Acute on chronic anemia Chronic Kidney Disease - elevated creatinine from baseline Discharge Exam Constitutional well developed; + not well nourished and no acute distress Eyes + anicteric sclerae; normal pupil size Neck normal visual inspection and trachea midline Respiratory normal respiratory effort, lungs clear to auscultation Cardiovascular Rate/Rhythm: regular rate and regular rhythm Heart Sounds: + murmur (systolic) Extremities: normal capillary refill and + pedal edema (3+ to abdomen); no calf tenderness Chest (Breasts) Chest: + vascular access device or port (right perm cath present without surrounding cellulitis) Musculoskeletal no cyanosis or clubbing, extremities motor strength 5/5 Skin no rashes, warm and dry Neurologic moves all extremities and awake; not confused Psychiatric A+Ox3, euthymic affect Genitourinary no CVA tenderness Discharge Data Allergies Allergy/AdvReac Type Severity Reaction Status Date / Time latex Allergy Unknown LOCAL SKIN Verified 05/14/19 17:23 IRRITATION lisinopril Allergy Unknown hyperkalemi Verified 05/14/19 17:23 a sulfamethoxazole AdvReac increases Verified 05/14/19 17:23 [From Bactrim] potassium trimethoprim [From Bactrim] AdvReac increases Verified 05/14/19 17:23 potassium Consultations 06/13/19 14:42 Consult Nephrology Routine 06/13/19 14:45 Consult Case Management - Discharge Planning Routine 06/13/19 22:00 Consult Health Information Management Routine Ordered Studies 06/13/19 17:51 US renal/blad retro comp Routine Hospital Course (1) Elevated serum creatinine: Marco A Haddad is a 78 year old male admitted to [facility] from June 13 to 2018 due to elevated creatinine and worsening anemia after recent prolonged admission for sepsis, GI bleeding, right incarcerated inguinal hernia repair and acute renal failure. His renal function and anemia have been stable while admitted with no medication changes. He was reviewed by nephrology on discharge and recommend reducing bumex to 1mg daily as likely elevated creatinine due to over diuresis. Anemia - recommend not restarting ASA (used previous for primary prevention). Recommend restarting Eliquis in approximately 1 week (renally dosed) if anemia is stable. Stop omega-3 fatty oil due to increased risk of bleeding and limited benefit of this. Hypertension - amlodipine increased from 5 to 10mg daily as per plan from [facility] due to continued elevated high blood pressure. Lower extremity edema - recommend DULCE hose or tighter socks - suspect mainly driven by hypoalbuminemia from malnutrition since proteinuria actually improved since February. (2) Pitting edema: (3) Chronic kidney disease, stage IV (severe): (4) Leukocytosis: (5) History of GI bleed: (6) Anemia: (7) Hypertension: (8) Depression: Total Time Total Time Spent Total Time Spent (In Minutes): 35 Total Time Includes: Examination of the Patient, Discharge Planning, Medication Reconciliation and Communication With Other Providers (Dr Appiah) Discharge Plan Discharge Items Patient Disposition: Transfer [facility] Reason For Visit: ANEMIA, KIDNEY FAILURE Discharge Diagnosis: Anemia Chronic Kidney Disease - elevated creatinine from baseline Condition on Discharge: Good Activity: Resume your previous activity Non-emergency contact: Primary Care Provider Call non-emergency contact if: you have any medication questions, your symptoms worsen and your temperature is above 101 Follow-up/Referrals: Jovany Stephenson MD [Primary Care Provider] - Diet: Carb Consistent or DM2 Ambulatory Orders: Basic Metabolic Panel (Routine) Timeframe: 20190620 Location: Determined by Patient Ordered By: Sandro Elizabeth Complete Blood Count no Diff (Routine) Timeframe: 20190620 Location: Determined by Patient Ordered By: Sandro Blackwell Attending Provider Instructions: You were admitted to [facility] from June 13 to 2018 due to elevated creatinine and worsening anemia after recent prolonged admission for sepsis, GI bleeding, right incarcerated inguinal hernia repair and acute renal failure. Your renal function and anemia have been stable while admitted with no medication changes. You were reviewed by nephrology on discharge and recommend reducing bumex to 1mg daily as likely you are being over-diuresed. Anemia - recommend not restarting ASA (you were on this for primary prevention). Recommend restarting Eliquis in approximately 1 week (renally dosed) if anemia is stable. Recommend holding omega-3 fatty oils as this can increase your risk of bleeding and is of limited benefit. Hypertension - amlodipine increased to 10mg daily as per plan from [facility]. Lower extremity edema - recommend DULCE hose or tighter socks - suspect this is mainly due to low albumin levels rather than your renal failure. Please have repeat lab tests as ordered on Thursday with results to your gun stocker - Dr Carney. Kind regards, Dr Sandro Elizabeth Pending Studies at Discharge: No Stand-Alone Forms: My [facility], Smoking Cessation Skilled Items Patient informed of condition?: Yes DNR: Yes Discharge Level of Care: Acute rehab Communicable Disease: No Discharge Prognosis: Stable Lines: None Urinary Catheter: No (Right Perm Cath) Medications and DC Order Prescriptions: Continued ipratropium bromide 42 mcg (0.06 %) spray,non-aerosol 2 spray intranasal BID Qty: 15 RF: 11 cholecalciferol (vitamin D3) 1,000 unit capsule 1,000 units PO QAM RF: 0 famotidine 40 mg tablet 40 mg PO QAM RF: 0 glipizide 5 mg tablet extended release 24hr 5 mg PO QAM RF: 0 gabapentin 100 mg capsule See Rx Instructions mg PO DIRECTED RF: 0 PreserVision AREDS-2 [id number] Capsule 1 tab PO BID RF: 0 carvedilol 6.25 mg Tablet 6.25 mg PO BID RF: 0 Vitamin C 1,000 mg 1,000 mg PO QAM RF: 0 multivitamin Tablet 1 tab PO QAM RF: 0 ascorbic acid (vitamin C) 1,000 mg Tablet 1,000 mg PO QAM RF: 0 pravastatin 10 mg tablet 10 mg PO QAM RF: 0 febuxostat [Uloric] 40 mg Tablet 40 mg PO QAM RF: 0 fluvoxamine 100 mg tablet 100 mg PO HS RF: 0 Changed bumetanide 2 mg tablet 1 mg PO DAILY Qty: 0 RF: 0 amlodipine 5 mg tablet 10 mg PO QAM Qty: 0 RF: 0 Discontinued omega-3 fatty acids-fish oil [Fish Oil] 360-1,200 mg Capsule 2,400 cap PO QAM RF: 0 Discharge Orders: Discharge Order (Routine); Ordered 06/16/19 Ordered By: Sandro Elizabeth Admission Data Admit Date/Time: 06/13/19 13:31 Attending Provider: Sandro Elizabeth Admit Provider: Gurjit Ashley Primary Care Provider: Jovany Stephenson Other Providers: Alecia Appiah [place] Date/Time DO NOT enter until pt leaves facility: 06/16/19 15:12
--- NOTE | 2019-06-23 09:34 | Coding Query ---
ANEMIA To promote full compliance with coding requirements relating to patient care, physician participation is requested in all cases of front end java developer uncertainty. Please assist us with the question(s) below: Coding Question(s): The record reflects the following clinical findings: Anemia If these findings are indicative of anemia, please specify the known or suspected type by placing an "X" within the parenthesis (x). If other, please document type. Examples are: ( ) Acute blood loss anemia ( ) Acute Postoperative blood loss anemia ( ) Acute postoperative anemia due to dilutional fluids (X) Chronic blood loss anemia ( ) Anemia of chronic disease ( ) Aplastic anemia ( ) Anemia due to renal disease ( ) Anemia in neoplastic disease ( ) Iron deficient anemia ( ) Anemia, unspecified or other ( ) Other: (please specify) ( ) Unable to determine Thank you Rosana NAIR
--- NOTE | 2019-06-23 09:45 | Coding Query ---
CODING QUERY To promote full compliance with coding requirements relating to patient care, provider participation is requested in all cases of orthopedic coder uncertainty. Please assist us with the question(s) below: Coding Question(s): 1. Elevated Serum Creatinine is documented in the record and Discharge Summary. Please clarify below, in your clinical opinion, the most likely etiology of the Elevated Serum Creatinine. ( ) most likely etiology is worsening Chronic Kidney Disease ( ) most likely etiology is Acute Kidney Failure/Injury ( ) most likely etiology is Acute Kidney Insufficiency (X) most likely etiology is Other: Please Specify____over diuresis from bumex use ( ) most likely etiology is Unknown 2. The Discharge Summary documents, "History of GI bleed: Hgb initially improved from outpatient labs. Currently 8.0, appears to be stable around this amount. Will still continue PO pantoprazole Patient consented and type/screened if requires any blood transfusions overnight. As per [facility] discharge notes bleed suspected due to AVMs on colonoscopy rather than submucosal lesion on EGD. No further melena since colonoscopy at [place].". The H&P documents, "History of GI bleed: Drop of Hgb as outpatient from 8.6 to [address] Carney's note. Sudden onset fatigue this morning concerning for further bleeding although Hgb now 8.5. IV pantoprazole ordered prior to Hgb level coming back. Can now be switched to PO. Patient type and screened. As per [facility] discharge notes bleed suspected due to AVNs on colonoscopy rather than submucosal lesion on EGD, despite melena stools and he was not prescribed pantoprazole on discharge. No further melena since colonoscopy at [place].". It is unclear if there was possible GI Bleed treating during this admission. Please clarify below, in your clinical opinion. (X) Possible GI Bleeding was treated during this admission with IV Pantoprazole. Please specify below regarding etiology. (X) possible etiology AVM ( ) other possible etiology - Please Specify ( ) Unknown etiology ( ) No possible GI Bleeding was treated during this admission. Patient has history only of GI Bleeding. Physician's Response(s): Thank you Rosana Del Real Principal Diagnosis: "that condition established after study, to be chiefly responsible for occasioning the admission of the patient to the hospital for care." Co-Existing Principal Diagnosis: "when two or more diagnoses equally meet the criteria for principal diagnosis as determined by the circumstances of admission, diagnostic work up, and/or therapy provided, and the Alphabetic Index, Tabular List, or another coding guideline does not provide sequencing direction, any one of the diagnoses may be sequenced first." "When the physician has documented what appears to be a current diagnosis in the body of the record, but has not included the diagnosis in the final diagnostic statement, the physician should be asked whether the diagnosis should be added." (Source [facility]oding [facility] 2 QTR90. p3-4) KOREY
== END 2019-06-16 15:12 | DRG 695 ==
LOC: 4W 13:31 → SUATTDRO 13:31

== ENCOUNTER 2019-06-28 10:55 | Observation (INO) ==
[2019-06-28] MEDS ORDERED: SODIUM CHLORIDE 0.9% 250 ML IV PRN (12:03)
[2019-06-28 12:41] LABS: Hematocrit (blood only) 22.7 % (42-52); Hemoglobin 7.2 g/dL (14.0-18.0); Immature Granulocytes # (auto) 0.04 K/uL (0.00-0.02); Immature Granulocytes % (auto) 0.4 %; Lymphocytes % (auto) 37.9 %; Mean Corpuscular Hemoglobin 27.4 pg (25-34); Mean Corpuscular Hgb Conc 31.7 g/dL (32-36); Mean Corpuscular Volume 86.3 fL (80-100); Mean Platelet Volume 8.3 fL (7.4-10.4); Monocytes # (auto) 0.37 K/uL (0.11-0.59); Monocytes % (auto) 3.4 %; Neutrophils # (auto) 6.31 K/uL (1.4-6.5); Neutrophils % (auto) 58.3 %; Platelet Count 302 K/uL (130-400); RDW Coefficient of Variation 15.7 % (11.5-14.5); RDW Standard Deviation 49.7 fL (36.4-46.3); Red Blood Count 2.63 M/uL (4.7-6.1); White Blood Count 10.82 K/uL (4.8-10.8)
[2019-06-28 12:55] LABS: INR 1.2 (0.9-1.1); Partial Thromboplastin Time 26.6 Seconds (21.0-31.0); Prothrombin Time 12.2 Seconds (9.0-12.0)
[2019-06-28 13:03] LABS: Alanine Aminotransferase 31 U/L (12-78); Albumin Level 1.8 gm/dl (3.4-5.0); Aspartate Aminotransferase 21 U/L (15-37); BUN Creatinine Ratio 21.5 (10-20); Blood Urea Nitrogen 83 mg/dl (7-18); Calcium 8.8 mg/dl (8.5-10.1); Carbon Dioxide 25 mmol/L (21-32); Chloride 105 mmol/L (98-107); Creatinine Clr Calc Pharmacy 20.4 ml/min; Est GFR (African American) 16.4; Est GFR (Non-African American) 14.2; Glucose 239 mg/dl (70-99); Magnesium 1.9 mg/dl (1.8-2.4); Potassium 4.1 mmol/L (3.5-5.1); Sodium 140 mmol/L (136-145)
[2019-06-28 13:05] LABS: Hypochromasia Present
[2019-06-28 13:06] LABS: Base Excess VBG 0.2 mEq/L; pH VBG 7.37 (7.36-7.41)
--- NOTE | 2019-06-28 13:14 | XRay Report ---
XR chest 1V portable HISTORY: SEPSIS COMPARISON: Chest 05/19/2019. FINDINGS: No pneumothorax. Cardiomegaly, small bilateral pleural effusions, and bibasilar densities p ersist. There is mild central pulmonary vascular congestion without overt edema. Right jugular cathet er terminates at the proximal SVC. The upper lung zones remain clear. IMPRESSION: No change in the cardiomegaly, small bilateral pleural effusions, and bibasilar densities. Mild pulmo nary vascular congestion has slightly improved. ACT 112: Negative or not required by law. Electronically signed by: Pavan Meek M.D. 06/28/2019 1:13 PM
[2019-06-28 13:35] LABS: Albumin Globulin Ratio 0.4 (0.9-2); Alkaline Phosphatase 153 U/L (45-117); Bilirubin Direct < 0.1 mg/dl (0-0.2); Bilirubin,Total 0.4 mg/dl (0.2-1); Globulin 4.1 gm/dl (2.5-4.0); Phosphorus 5.7 mg/dl (2.5-4.9); Total Protein 5.9 gm/dl (6.4-8.2); Troponin I 0.055 ng/ml (0-0.045)
--- NOTE | 2019-06-28 14:03 | Electrocardiogram Report ---
Test Reason : Blood Pressure : / mmHG Vent. Rate : 061 BPM Atrial Rate : 063 BPM P-R Int : 000 ms QRS Dur : 124 ms QT Int : 422 ms P-R-T Axes : 000 024 004 degrees QTc Int : 424 ms Atrial fibrillation Right bundle branch block Abnormal ECG When compared with ECG of 14-MAY-2019 19:06, Atrial fibrillation has replaced Atrial flutter T wave inversion more evident in Anterior leads Confirmed by Андрей Vargas ([id number]) on 06/28/2019 2:02:45 PM Referred By: REFERRED SELF Confirmed By:Андрей Vargas
--- NOTE | 2019-06-28 14:27 | CT Scan Report ---
CT OF THE ABDOMEN AND PELVIS WITHOUT CONTRAST CLINICAL HISTORY: Anemia. Shortness of breath. History of GI bleed. COMPARISON STUDY: CT of the abdomen and pelvis May 14, 2019. Renal ultrasound June 13, 2019 . TECHNIQUE: Axial images of the abdomen and pelvis were obtained without IV contrast. Images were revi ewed in the axial, sagittal, and coronal planes. Automated exposure control was utilized for the danelle dy. A dose lowering technique was utilized adhering to the principles of ALARA. FINDINGS: Imaged portions of the lower chest partially visualize bilateral pleural effusions which ar e likely moderate in size. There is right lower lobe atelectasis and subpleural left lower lobe atele ctasis. There is also subtotal right middle lobe atelectasis. Mild airspace opacity within the anteri or segment of the right upper lobe is noted. No pneumatosis is noted. Evaluation of the abdomen and p jeyson is suboptimal on this unenhanced exam. The liver, spleen, left adrenal gland pancreas are unrem arkable. There is no biliary or pancreatic ductal dilatation. There are numerous gallstones within th e gallbladder. There is mild gallbladder wall thickening. A 2.2 cm right adrenal nodule is unchanged. Water attenuation bilateral renal lesions are shown to reflect cysts on prior exam. Was no hydroneph rosis. There is moderate left renal atrophy. Anasarca is noted. Small amount of ascites with presacra l infiltration within the pelvis is noted. A moderate amount of stool within the rectum is noted. The re is mild bladder wall thickening. Images of the pelvis are degraded by streak artifact from bilater al hip arthroplasties. Fat containing right inguinal hernia is noted. A locule of gas within a right inguinal hernia is noted. There is also a small locule of gas adjacent to the right anterior aspect o f the bladder. No bowel is present within the hernia sac. There are no suspicious osseous lesions. Po stoperative findings within the spine are noted. Small bowel anastomosis is noted. IMPRESSION: 1. Small amount of gas within the right inguinal canal and locule of gas adjacent to the right anteri or aspect of the bladder. This gas is nonspecific and may be postsurgical/related to recent intervent ion. Correlation with recent procedural history is recommended. Fat-containing right inguinal hernia. 2. Evidence for volume overload with anasarca. Moderate bilateral pleural effusions with right lower lobe collapse, subtotal right middle lobe collapse and segmental left lower lobe atelectasis. 3. No bowel obstruction. 4. Cholelithiasis with mild gallbladder wall thickening, a nonspecific finding which may be related t o volume overload. This could be correlated with right upper quadrant pain. 5. Moderate amount of stool within the rectum. Mild rectal wall thickening. ACT 112: Negative or not required by law. Electronically signed by: Mychal Flores M.D. 06/28/2019 2:26 PM
[2019-06-28] MEDS ORDERED: cefTRIAXone SODIUM 2,000 MG/70 ML BAG IV STA (15:35)
[2019-06-28] MEDS ORDERED: DOXYCYCLINE HYCLATE 100 MG in DEXTROSE 5% 100 ML IV STA (15:35)
--- NOTE | 2019-06-28 15:48 | History & Physical Report ---
Date of Service June 28, 2019 Assessment & Plan (1) Symptomatic anemia: Admits to PCU on telemetry Vital signs every 4 hours Started 2 units of blood in the emergency room CBC s/p transfusion Continue monitoring H&H DVT prophylaxis SCDs and teds Patient would like to proceed with palliative care and possibly hospice DNR/DNI per patient request Present on Admission?: Yes (2) Elevated troponin: Patient denies chest pain. Elevated troponin is most likely due to CKD stage V. Continue following troponins x3 Patient is reluctant to accept any interventional procedure at this point. 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 Patient follows up with Dr. Carney for the past 9 years. Patient refused hemodialysis and other occasions as well as today. But he would like to see Dr. Carney. Avoid nephrotoxic agents Present on Admission?: Yes (4) Depression: Continue monitoring. Patient has multiple comorbidities. Continue fluvoxamine 100mg p.o. nightly. Patient denies suicidal ideations Present on Admission?: Yes (5) Ascites: Appears to have hepatorenal syndrome. Bumetanide 1 mg p.o. daily switched to IV. Titrate up as needed. Most likely the only benefit that would improve it is dialysis. Present on Admission?: Yes (6) History of GI bleed: Patient had GI bleed in the past. Patient is again severely anemic. We will check for fecal occult blood. Present on Admission?: Yes (7) Acute respiratory failure: CT abdomen and pelvis showed part of the chest with with moderate bilateral pleural effusion and right lower lobe collapse, subtotal right middle lobe collapse and segmental left lower lobe atelectasis. Patient is not enthusiastic of doing any interventional procedure at this time. Recommended incentive spirometry and to try to expand the lung. Continue duo nebs every 4 hours Ipratropium bromide nasal spray spray 2 sprays twice daily Procalcitonin pending Started empirically ceftriaxone and Flagyl for possibly pneumonia and infiltrate in the lungs in addition to doxycycline that patient was already taking. Continue prednisone 30 mg p.o. daily. Present on Admission?: Yes (8) Atrial fibrillation: Patient is on carvedilol 6.25 mg p.o. twice daily. Present on Admission?: Yes (9) Hypertension: Continue amlodipine 10 mg p.o. every morning, carvedilol 6.25 mg p.o. twice daily. Present on Admission?: Yes (10) Diabetic neuropathy: Continue home medicine gabapentin 200 mg p.o. nightly Present on Admission?: Yes (11) Diabetes mellitus type 2 in obese: Accu-Cheks before meals and at bedtime. Recommended sliding scale insulin while patient in the hospital. Glycemic control per pharmacy Present on Admission?: Yes (12) Gout: Continue febuxostat 40 mg p.o. every morning Present on Admission?: Yes History of Present Illness Chief Complaint: Shortness of breath Primary Care Provider: Jovany Stephenson MD Patient is a 78 years old male with past medical history of hypertension, hyperlipidemia, gout, CKD stage V, A. fib's peripheral vascular disease coronary artery disease, asymptomatic cholelithiasis, depression, history of gram-negative bacteremia with Citrobacter, history of recent had septic shock in April 2019 from strangulated and necrotic bowel obstruction in the right inguinal hernia. Patient underwent small bowel resection on May 14 and after that was transferred to the ICU postoperatively due to hypotensive episode and required vasopressors for 3 days. He was also in intubated at that time. Had another admission in May and at that time he was discharged to [facility]. Today patient was brought with severe shortness of breath to the emergency room and he is hemoglobin and hematocrit were decreased to 7.2/22.7. Patient states that he does not want to pursue hemodialysis even though he is renal function is worsening, he also states that he wants to go home and stay at home and pursue palliative care and possibly hospice care. This was also discussed with his who is in agreement with it. Patient stated that he is okay with receiving 2 units of blood but then he wants to be discharged home. Lab are reviewed: WBC is 10.82, hemoglobin 7.2, hematocrit 22.7, platelets 302. Patient prior blood count was 8/24.2 in May and 8.4/25.7. Patient denies any acute blood loss, melena, hematemesis, hematuria, patient's anemia is more due to chronic comorbidities including but not limiting to worsening CKD, recent surgery and poor recovery. INR 1.2, APTT 26.6, PT 12.2, sodium 140, potassium 4.1, creatinine 3.85, GFR 14.2, lactate 1.7, phosphorus 5.7, troponin 0.055. Stool occult was positive on May 28, 2019. Chest x-rays: No change in the cardiomegaly, small bilateral pleural effusion, bibasilar densities. Mild pulmonary vascular congestion has slightly improved. CT abdomen pelvis shows small amount of gas within the right inguinal canal and locular of the gas adjacent to the right anterior aspect of the bladder. This gas is nonspecific and may be postsurgically related to recent intervention. Fat-containing right inguinal hernia. Evidence for volume overload with anasarca. Moderate bilateral pleural effusion with right lower lobe collapse subtotal mild right middle lobe collapse and segmental left lobe atelectasis. No bowel obstruction. Cholelithiasis with mild gallbladder wall thickening. A nonspecific finding which may be related to volume overload. Moderate amount of stool within the rectum. Mild rectal wall thickening. Decision was made to admit patient to PCU on telemetry for further evaluation and treatment of the above mentioned issues. Allergies Allergy/AdvReac Type Severity Reaction Status Date / Time latex Allergy Unknown LOCAL SKIN Verified 06/28/19 14:24 IRRITATION lisinopril Allergy Unknown hyperkalemi Verified 06/28/19 14:24 a sulfamethoxazole AdvReac increases Verified 06/28/19 14:24 [From Bactrim] potassium trimethoprim [From Bactrim] AdvReac increases Verified 06/28/19 14:24 potassium Home Medications Home Medications Medication Instructions Recorded Confirmed Type ascorbic acid (vitamin C) 1,000 mg PO QAM 10/08/18 06/28/19 History pravastatin 10 mg PO HS 10/08/18 06/28/19 History febuxostat [Uloric] 40 mg PO QAM 12/14/18 06/28/19 History cholecalciferol (vitamin D3) 25 1,000 units PO QAM 01/17/19 06/28/19 History mcg (1,000 unit) capsule fluvoxamine 100 mg PO HS 03/03/19 06/28/19 History ipratropium bromide 42 mcg (0.06 2 spray INTRANASAL BID #15 ml 04/07/19 06/28/19 Rx %) nasal spray PreserVision AREDS-2 1 tab PO BID 05/14/19 06/28/19 History famotidine 40 mg PO QAM 05/14/19 06/28/19 History gabapentin 200 mg PO HS 05/14/19 06/28/19 History glipizide 5 mg PO QAM 05/14/19 06/28/19 History carvedilol 6.25 mg PO BID 06/13/19 06/28/19 History amlodipine 10 mg PO QAM #0 tab 06/16/19 06/28/19 Rx acetaminophen 325 mg PO QID PRN 06/28/19 06/28/19 History bisacodyl 10 mg [place] DAILY PRN 06/28/19 06/28/19 History bumetanide 1 mg PO DAILY 06/28/19 06/28/19 History docusate sodium [Colace] 100 mg PO DAILY 06/28/19 06/28/19 History doxycycline hyclate 100 mg PO BID 06/28/19 06/28/19 History prednisone 40 mg PO DAILY 06/28/19 06/28/19 History Past Med/Surg History Medical History Acute respiratory failure with hypoxia Admitted to intensive care unit Adrenal nodule Afib Arthritis Aspiration into airway Asymptomatic cholelithiasis Cataracts, both eyes RIGHT EYE BEING DONE FIRST Chronic kidney disease, stage III (moderate) (Resolved) Constipation Coronary arteriosclerosis Delirium Diabetes Diastolic dysfunction Encounter for pre-operative examination GERD (gastroesophageal reflux disease) High cholesterol History of stress test 2009 [place] D/T PASSED OUT WENT TO [facility]. DR CURIEL - CURRENT FAMILY MEDIATOR HAS RECORD OF THIS Hx of fall 09/2018 - SEEN IN ED - HAD CT OF HEAD - NEGATIVE Melena Mitral regurgitation Normal pressure hydrocephalus Peripheral artery disease LEFT LEG Renal insufficiency Severe sepsis with septic shock Thrombocytopenia (Resolved) Surgical History History of back surgery L3-L4 History of left hip replacement History of parathyroidectomy (Resolved) PARTIAL History of right hip replacement X2 Hx of hernia repair Post-operative state Family History Father Myocardial infarction Mother Gout CHF (congestive heart failure) Social History Preferred Language: Malagasy Communication Ability: Effective Detacher Required: No Beliefs That Will Affect Care: None Current Living Situation: Personal Care Facility Feels Safe at Home: Yes Smoking Status: Former smoker Tobacco Type: cigarettes ; Second Hand Exposure: No ; Hx Alcohol Use: No Hx Substance Use: No Review of Systems Review of Systems: All systems reviewed & are unremarkable except as noted in HPI & below Physical Exam Constitutional: WD/WN, vitals as above well developed and + obese Eyes: PERRL, conjunctivae normal, anicteric sclerae ENMT: external ear and nose normal, oropharynx normal Neck: trachea midline, no thyromegaly Respiratory: Auscultation: + diminished lung sounds and + wheezes Cardiovascular: Rate/Rhythm: + irregularly irregular Heart Sounds: normal S1 and normal S2 Musculoskeletal: no cyanosis or clubbing, extremities motor strength 5/5 Skin: no rashes, warm and dry Neurologic: patellar DTR's 2+ bilat, sensation intact Psychiatric: A+Ox3, euthymic affect Lymphatic: no cervical or axillary lymphadenopathy Results & Data Vital Signs (Past 12 Hours) Vital Signs Temp Pulse Resp BP Pulse Ox 06/28/19 15:33 56 L 15 143/65 H 95 06/28/19 15:31 56 L 15 95 06/28/19 15:30 58 L 17 143/65 H 96 06/28/19 15:18 56 L 21 143/68 H 95 06/28/19 15:16 64 21 94 06/28/19 15:15 58 L 18 143/68 H 94 06/28/19 15:03 36.6 C 55 L 18 139/60 95 06/28/19 15:01 61 15 95 06/28/19 15:00 54 L 15 139/60 95 06/28/19 14:48 36.6 C 58 L 13 141/64 H 97 06/28/19 14:46 58 L 19 97 06/28/19 14:45 57 L 16 135/61 96 06/28/19 14:34 63 13 144/63 H 97 06/28/19 14:31 64 17 94 06/28/19 14:30 36.7 C 63 15 143/61 H 94 06/28/19 14:15 57 L 15 97 06/28/19 14:01 54 L 14 148/65 H 95 06/28/19 14:00 59 L 14 95 06/28/19 13:45 60 18 98 06/28/19 13:31 60 19 100 06/28/19 13:30 59 L 15 148/65 H 100 06/28/19 13:15 61 22 99 06/28/19 13:01 66 23 97 06/28/19 13:00 62 15 149/61 H 95 06/28/19 12:45 61 17 98 06/28/19 12:31 64 16 129/51 L 99 06/28/19 12:30 21 97 06/28/19 12:15 63 19 97 06/28/19 12:03 59 L 15 136/50 L 94 06/28/19 12:01 53 L 20 142/60 H 96 06/28/19 11:45 57 L 12 96 06/28/19 11:30 53 L 16 96 06/28/19 11:15 60 15 95 06/28/19 11:05 56 L 19 94 06/28/19 11:03 36.8 C 61 18 143/62 H 94 06/28/19 11:01 62 19 143/62 H 95 Code Status & VTE Plan Code Status DNR/DNI VTE Prophylaxis Plan VTE Prophylaxis will be ordered: Yes PG Care Time/CCT Total # of Minutes Spent Total Time Spent with Patient: Total time spent is greater than 50% in coordination of care (as documented) at patient's floor/unit and/or counseling patient: (1) CKD (chronic kidney disease) Chronic kidney disease stage: unspecified stage Qualified Code(s): N18.9 - Chronic kidney disease, unspecified
--- NOTE | 2019-06-28 18:14 | Emergency Department Note ---
Entered by Bebe Chaves acting as a scribe for Dave Mccormack MD History of Present Illness General Chief complaint: Shortness of Breath/Dyspnea Time Seen by Provider: 06/28/19 11:25 Source: patient and family History of Present Illness Onset (ago): day(s) 1 Location: left (lung) and right (lung) Severity: similar to prior episodes Pain Consistency: + other (persistent) Maximum Pain Intensity: 0 Quality: + other (shortness of breath, "heavy breathing") Associated symptoms: + shortness of breath and + weakness; no fever/chills Treatments prior to arrival: none The patient is a 78 year old male presenting to the Emergency Room complaining of persistent shortness of breath starting 1 day ago. The patient reports that he is short of breath and describes this has heavy breathing. He states that he is severely weak. He notes that he had lab work done this morning that showed a low blood count. He adds that he has decided to not start dialysis and has not urinated today. The patient denies recent fevers, chills and black stool. The patients reports that the patient had emergency surgery for internal bleeding and stayed in an ICU before going to [facility]. She states that the patient hasnt been home since 05/14/19. She explains that since the patient has been at [facility] he has not been able to participate in physical the rapy because of his weakness. She notes that the patient last received a blood transfusion in May 2019. She adds that the patient has not received any treatments [employer] RO[employer] for his breathing. Home Medications Home Medications Medication Instructions Recorded Confirmed Type ascorbic acid (vitamin C) 1,000 mg PO QA 10/08/18 06/28/19 History pravastatin 10 mg PO 10/08/18 06/28/19 History febuxostat [Uloric] 40 mg PO QAM 12/14/18 06/28/19 History cholecalciferol (vitamin D3) 25 1,000 units PO M 01/17/19 06/28/19 History mcg (1,000 unit) capsule fluvoxamine 100 mg PO 03/03/19 06/28/19 History ipratropium bromide 42 mcg (0.06 2 spray INTRANASAL BID #15 ml 04/07/19 06/28/19 Rx %) nasal spray PreserVision AREDS-2 1 tab PO BID 05/14/19 06/28/19 History famotidine 40 mg PO QAM 05/14/19 06/28/19 History gabapentin 200 mg PO HS 05/14/19 06/28/19 History glipizide 5 mg PO QAM 05/14/19 06/28/19 History carvedilol 6.25 mg PO BID 06/13/19 06/28/19 History amlodipine 10 mg PO QAM #0 tab 06/16/19 06/28/19 Rx acetaminophen 325 mg PO QID PRN 06/28/19 06/28/19 History bisacodyl 10 mg RI DAILY PRN 06/28/19 06/28/19 History bumetanide 1 mg PO DAILY 06/28/19 06/28/19 History docusate sodium [Colace] 100 mg PO DAILY 06/28/19 06/28/19 History doxycycline hyclate 100 mg PO BID 06/28/19 06/28/19 History prednisone 40 mg PO DAILY 06/28/19 06/28/19 History Allergies Allergy/AdvReac Type Severity Reaction Status Date / Time latex Allergy Unknown LOCAL SKIN Verified 06/28/19 14:24 IRRITATION lisinopril Allergy Unknown hyperkalemi Verified 06/28/19 14:24 a sulfamethoxazole AdvReac increases Verified 06/28/19 14:24 [From Bactrim] potassium trimethoprim [From Bactrim] AdvReac increases Verified 06/28/19 14:24 potassium Past Med/Surg History Medical History Acute respiratory failure with hypoxia Admitted to intensive care unit Adrenal nodule Afib Arthritis Aspiration into airway Asymptomatic cholelithiasis Cataracts, both eyes RIGHT EYE BEING DONE FIRST Chronic kidney disease, stage III (moderate) (Resolved) Constipation Coronary arteriosclerosis Delirium Diabetes Diastolic dysfunction Encounter for pre-operative examination GERD (gastroesophageal reflux disease) High cholesterol History of stress test 2009 [place] D/T PASSED OUT WENT TO [facility]. 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 HAS RECORD OF THIS Hx of fall 09/2018 - SEEN IN ED - HAD CT OF HEAD - NEGATIVE Melena Mitral regurgitation Normal pressure hydrocephalus Peripheral artery disease LEFT LEG Renal insufficiency Severe sepsis with septic shock Thrombocytopenia (Resolved) Surgical History History of back surgery L3-L4 History of left hip replacement History of parathyroidectomy (Resolved) PARTIAL History of right hip replacement X2 Hx of hernia repair Post-operative state Family History Father Myocardial infarction Mother Gout CHF (congestive heart failure) Social History Preferred Language: Maori Communication Ability: Effective 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 and A total of 10 systems reviewed and were otherwise negative Physical Exam Vital Signs Vital Signs - 24 hr 06/28/19 11:01 06/28/19 11:03 06/28/19 11:05 Temperature 36.8 C Temperature Source Oral Pulse Rate 62 61 56 L Pulse Rate from SpO2 Sensor 62 58 L Pulse Rhythm Pulse Strength Respiratory Rate 19 18 19 Blood Pressure 143/62 H 143/62 H Blood Pressure Mean 93 89 Blood Pressure Position Pulse Oximetry 95 94 94 Oxygen Delivery Method Nasal Cannula Oxygen Flow Rate 3 Sepsis Recent Fever Within 48 Hours No Sepsis New/Unexplained Change in Mental Status No Sepsis Action Taken by Nursing No Action Required 06/28/19 11:15 06/28/19 11:30 06/28/19 11:45 Temperature Temperature Source Pulse Rate 60 53 L 57 L Pulse Rate from SpO2 Sensor 57 L 57 L 58 L Pulse Rhythm Irregular Pulse Strength Respiratory Rate 15 16 12 Blood Pressure Blood Pressure Mean Blood Pressure Position Pulse Oximetry 95 96 96 Oxygen Delivery Method Nasal Cannula Oxygen Flow Rate 3 Sepsis Recent Fever Within 48 Hours Sepsis New/Unexplained Change in Mental Status Sepsis Action Taken by Nursing 06/28/19 12:01 06/28/19 12:03 06/28/19 12:15 Temperature Temperature Source Pulse Rate 53 L 59 L 63 Pulse Rate from SpO2 Sensor 54 L 55 L 59 L Pulse Rhythm Pulse Strength Respiratory Rate 20 15 19 Blood Pressure 142/60 H 136/50 L Blood Pressure Mean 87 84 Blood Pressure Position Pulse Oximetry 96 94 97 Oxygen Delivery Method Oxygen Flow Rate Sepsis Recent Fever Within 48 Hours Sepsis New/Unexplained Change in Mental Status Sepsis Action Taken by Nursing 06/28/19 12:30 06/28/19 12:31 06/28/19 12:45 Temperature Temperature Source Pulse Rate 64 61 Pulse Rate from SpO2 Sensor 63 65 61 Pulse Rhythm Pulse Strength Respiratory Rate 21 16 17 Blood Pressure 129/51 L Blood Pressure Mean 88 Blood Pressure Position Pulse Oximetry 97 99 98 Oxygen Delivery Method Oxygen Flow Rate Sepsis Recent Fever Within 48 Hours Sepsis New/Unexplained Change in Mental Status Sepsis Action Taken by Nursing 06/28/19 13:00 06/28/19 13:01 06/28/19 13:15 Temperature Temperature Source Pulse Rate 62 66 61 Pulse Rate from SpO2 Sensor 63 64 58 L Pulse Rhythm Pulse Strength Respiratory Rate 15 23 22 Blood Pressure 149/61 H Blood Pressure Mean 93 Blood Pressure Position Pulse Oximetry 95 97 99 Oxygen Delivery Method Oxygen Flow Rate Sepsis Recent Fever Within 48 Hours Sepsis New/Unexplained Change in Mental Status Sepsis Action Taken by Nursing 06/28/19 13:30 06/28/19 13:31 06/28/19 13:45 Temperature Temperature Source Pulse Rate 59 L 60 60 Pulse Rate from SpO2 Sensor 60 59 L 60 Pulse Rhythm Pulse Strength Respiratory Rate 15 19 18 Blood Pressure 148/65 H Blood Pressure Mean 109 Blood Pressure Position Pulse Oximetry 100 100 98 Oxygen Delivery Method Oxygen Flow Rate Sepsis Recent Fever Within 48 Hours Sepsis New/Unexplained Change in Mental Status Sepsis Action Taken by Nursing 06/28/19 14:00 06/28/19 14:01 06/28/19 14:15 Temperature Temperature Source Pulse Rate 59 L 54 L 57 L Pulse Rate from SpO2 Sensor 69 57 L 57 L Pulse Rhythm Pulse Strength Respiratory Rate 14 14 15 Blood Pressure 148/65 H Blood Pressure Mean 109 Blood Pressure Position Pulse Oximetry 95 95 97 Oxygen Delivery Method Oxygen Flow Rate Sepsis Recent Fever Within 48 Hours Sepsis New/Unexplained Change in Mental Status Sepsis Action Taken by Nursing 06/28/19 14:30 06/28/19 14:31 06/28/19 14:34 Temperature 36.7 C Temperature Source Oral Pulse Rate 63 64 63 Pulse Rate from SpO2 Sensor 62 64 62 Pulse Rhythm Irregular Pulse Strength Normal Respiratory Rate 15 17 13 Blood Pressure 143/61 H 144/63 H Blood Pressure Mean 92 98 Blood Pressure Position Lying Pulse Oximetry 94 94 97 Oxygen Delivery Method Oxygen Flow Rate 3 Sepsis Recent Fever Within 48 Hours Sepsis New/Unexplained Change in Mental Status Sepsis Action Taken by Nursing 06/28/19 14:45 06/28/19 14:46 06/28/19 14:48 Temperature 36.6 C Temperature Source Oral Pulse Rate 57 L 58 L 58 L Pulse Rate from SpO2 Sensor 57 L 58 L 61 Pulse Rhythm Irregular Pulse Strength Normal Respiratory Rate 16 19 13 Blood Pressure 135/61 141/64 H Blood Pressure Mean 93 101 Blood Pressure Position Lying Pulse Oximetry 96 97 97 Oxygen Delivery Method Oxygen Flow Rate 3 Sepsis Recent Fever Within 48 Hours Sepsis New/Unexplained Change in Mental Status Sepsis Action Taken by Nursing 06/28/19 15:00 06/28/19 15:01 06/28/19 15:03 Temperature 36.6 C Temperature Source Oral Pulse Rate 54 L 61 55 L Pulse Rate from SpO2 Sensor 55 L 55 L Pulse Rhythm Irregular Pulse Strength Normal Respiratory Rate 15 15 18 Blood Pressure 139/60 139/60 Blood Pressure Mean 89 86 Blood Pressure Position Lying Pulse Oximetry 95 95 95 Oxygen Delivery Method Oxygen Flow Rate 3 Sepsis Recent Fever Within 48 Hours Sepsis New/Unexplained Change in Mental Status Sepsis Action Taken by Nursing 06/28/19 15:15 06/28/19 15:16 06/28/19 15:18 Temperature Temperature Source Pulse Rate 58 L 64 56 L Pulse Rate from SpO2 Sensor 52 L 62 Pulse Rhythm Irregular Pulse Strength Normal Respiratory Rate 18 21 21 Blood Pressure 143/68 H 143/68 H Blood Pressure Mean 95 93 Blood Pressure Position Lying Pulse Oximetry 94 94 95 Oxygen Delivery Method Oxygen Flow Rate 3 Sepsis Recent Fever Within 48 Hours Sepsis New/Unexplained Change in Mental Status Sepsis Action Taken by Nursing 06/28/19 15:30 06/28/19 15:31 06/28/19 15:33 Temperature Temperature Source Pulse Rate 58 L 56 L 56 L Pulse Rate from SpO2 Sensor 58 L 60 Pulse Rhythm Irregular Pulse Strength Normal Respiratory Rate 17 15 15 Blood Pressure 143/65 H 143/65 H Blood Pressure Mean 101 91 Blood Pressure Position Lying Pulse Oximetry 96 95 95 Oxygen Delivery Method Oxygen Flow Rate 3 Sepsis Recent Fever Within 48 Hours Sepsis New/Unexplained Change in Mental Status Sepsis Action Taken by Nursing 06/28/19 15:45 06/28/19 15:46 Temperature Temperature Source Pulse Rate 59 L 57 L Pulse Rate from SpO2 Sensor 61 55 L Pulse Rhythm Pulse Strength Respiratory Rate 16 14 Blood Pressure 152/68 H Blood Pressure Mean 109 Blood Pressure Position Pulse Oximetry 94 94 Oxygen Delivery Method Oxygen Flow Rate Sepsis Recent Fever Within 48 Hours Sepsis New/Unexplained Change in Mental Status Sepsis Action Taken by Nursing GENERAL: Patient is ill appearing. Awake, alert, in no distress HENT: Normocephalic, atraumatic. Oropharynx unremarkable. Mucous membranes dry. EYES: Normal conjunctiva. Sclera non-icteric. NECK: Supple. No nuchal rigidity. FROM. No JVD. RESPIRATORY: Diminished breath sounds at the bases. CARDIAC: Regular rate, normal rhythm. Extremities warm and well perfused. Pulses equal. ABDOMEN: Soft, non-distended. No tenderness to palpation. No rebound or guarding. No masses. RECTAL: Deferred. MUSCULOSKELETAL: Chest examination reveals no tenderness. The back is symmetrical on inspection without obvious abnormality. There is no CVA tenderness to palpation. No joint edema. LOWER EXTREMITIES: Calves are equal size bilaterally and non-tender. No edema. No discoloration. NEURO: Normal sensorium. No sensory or motor deficits noted. SKIN: Pale. No rash or jaundice noted. Course Course 1135: The patient was evaluated in room C6, and a complete history and physical examination were performed. 1401: I reevaluated the patient at this time. 1501: I discussed the patients case with Dr. Burger - [facility] hospitalist. She will evaluate the patient for further management. Administered Medications Albuterol (Duoneb) 3 ml NEB Q4R [facility] Stop: 07/28/19 20:29 Last Admin: 06/28/19 20:27 Dose: 3 ml Documented by: [id number] Carvedilol (Coreg) 6.25 mg PO BID [facility] Stop: 07/28/19 20:59 Last Admin: 06/28/19 21:23 Dose: Not Given Documented by: [id number] Fluvoxamine Maleate (Luvox) 100 mg PO HS [facility] Stop: 07/28/19 20:59 Last Admin: 06/28/19 21:24 Dose: 100 mg Documented by: [id number] Gabapentin (Neurontin) 200 mg PO HS [facility] Stop: 07/28/19 20:59 Last Admin: 06/28/19 21:25 Dose: 200 mg Documented by: [id number] Metronidazole (Flagyl) 500 mg in 100 mls @ 100 mls/hr IV Q8 [facility] Stop: 07/05/19 20:29 Last Admin: 06/28/19 21:38 Dose: 100 mls/hr Documented by: [id number] Bumetanide 1 mg/ Syringe 4 mls @ 4 mls/min IV DAILY [facility] Stop: 07/28/19 20:29 Last Admin: 06/28/19 21:40 Dose: 4 mls/min Documented by: [id number] Insulin Aspart (Novolog Flexpen) 0 units SC ACHS [facility] Stop: 07/28/19 20:59 Last Admin: 06/28/19 21:17 Dose: 2 units Documented by: [id number] Cosigned by: [id number] Ipratropium [place] (Atrovent Nasal [place] 0.06%) 2 sprays SUNNY BID [facility] Stop: 07/28/19 20:59 Last Admin: 06/28/19 21:24 Dose: 2 sprays Documented by: [id number] Pravastatin Sodium (Pravachol) 10 mg PO HS [facility] Stop: 07/28/19 20:59 Last Admin: 06/28/19 21:25 Dose: 10 mg Documented by: [id number] Discontinued Medications Ceftriaxone Sodium (Rocephin) 2,000 mg in 70 mls @ 140 mls/hr IV NOW STA Stop: 06/28/19 16:04 Last Infusion: 06/28/19 17:06 Dose: 0 mls/hr Documented by: [id number] Admin: 06/28/19 16:35 Dose: 140 mls/hr Documented by: [id number] Doxycycline Hyclate 100 mg/ (Dextrose) 110 mls @ 50 mls/hr IV NOW STA Stop: 06/28/19 17:46 Last Infusion: 06/28/19 19:18 Dose: 0 mls/hr Documented by: [id number] Admin: 06/28/19 17:06 Dose: 50 mls/hr Documented by: [id number] Insulin Glargine (Lantus Solostar Pen) 15 units SC ONE ONE; Protocol Stop: 06/28/19 21:01 Last Admin: 06/28/19 21:18 Dose: 15 units Documented by: [id number] Cosigned by: [id number] Critical Care Time Critical Care Time: Yes Total Critical Care Time: 45 I have personally spent 45 minutes of critical care time in the direct management of this patient. This includes bedside care, interpretation of diagnostic studies, and testing, discussion with consultants, patient, and family members, and other required patient management activities. This 45 minutes is in excess of all separately billable procedures. Medical Decision Making Differential Diagnosis Differential Diagnosis includes but is not limited to dehydration, stroke, a nemia, hypoglycemia, hyponatremia, hypernatremia, urinary tract infection, pneumonia, bronchitis, sepsis, gastroenteritis, additional abdominal pathology, metabolic abnormalities and infections. Medical Records Attestation: I reviewed the patient's medical records. Home Medications Current Medication List: was personally reviewed by me Laboratory Data Attestation: I reviewed the patient's lab results. Result diagrams: 06/28/19 12:28 06/28/19 12:28 Lab Results 06/28/19 06/28/19 06/28/19 Range/Units 12:28 12:28 12:28 WBC 10.82 H (4.8-10.8) K/uL RBC 2.63 L (4.7-6.1) M/uL Hgb 7.2 L (14.0-18.0) g/dL Hct 22.7 L (42-52) % MCV 86.3 (80-100) fL MCH 27.4 (25-34) pg MCHC 31.7 L (32-36) g/dL RDW Std Deviation 49.7 H (36.4-46.3) fL RDW Coeff of Ekta 15.7 H (11.5-14.5) % Plt Count 302 (130-400) K/uL MPV 8.3 (7.4-10.4) fL Immature Gran % (Auto) 0.4 % Neut % (Auto) 58.3 % Lymph % (Auto) 37.9 % [place] % (Auto) 3.4 % Eos % (Auto) 0.0 % Baso % (Auto) 0.0 % Immature Gran # (Auto) 0.04 H (0.00-0.02) K/uL Neut # (Auto) 6.31 (1.4-6.5) K/uL Lymph # (Auto) 4.10 H (1.2-3.4) K/uL [place] # (Auto) 0.37 (0.11-0.59) K/uL Eos # (Auto) 0.00 (0-0.5) K/uL Baso # (Auto) 0.00 (0-0.2) K/uL Hypochromasia Present PT 12.2 H (9.0-12.0) Seconds INR 1.2 H (0.9-1.1) APTT 26.6 (21.0-31.0) Seconds PTT Ratio 1.0 VBG pH (7.36-7.41) VBG pCO2 (38-50) mmHg VBG pO2 mmHg VBG HCO3 mmol/L VBG O2 Saturation % VBG Base Excess mEq/L Barometric Pressure mm/Hg Sodium 140 (136-145) mmol/L Potassium 4.1 (3.5-5.1) mmol/L Chloride 105 (98-107) mmol/L Carbon Dioxide 25 (21-32) mmol/L Anion Gap 10.0 (3-11) BUN 83 H (7-18) mg/dl Creatinine 3.85 H D (0.6-1.4) mg/dl Est Cr Clr Drug Dosing 20.4 ml/min Est GFR ( Amer) 16.4 Est GFR (Non-Af Amer) 14.2 BUN/Creatinine Ratio 21.5 H (10-20) Glucose 239 H (70-99) mg/dl Lactate (0.4-2.0) mmol/L Calcium 8.8 (8.5-10.1) mg/dl Phosphorus 5.7 H (2.5-4.9) mg/dl Magnesium 1.9 (1.8-2.4) mg/dl Total Bilirubin 0.4 (0.2-1) mg/dl Direct Bilirubin < 0.1 (0-0.2) mg/dl AST 21 (15-37) U/L ALT 31 (12-78) U/L Alkaline Phosphatase 153 H (45-117) U/L Troponin I 0.055 H* (0-0.045) ng/ml Total Protein 5.9 L (6.4-8.2) gm/dl Albumin 1.8 L (3.4-5.0) gm/dl Globulin 4.1 H (2.5-4.0) gm/dl Albumin/Globulin Ratio 0.4 L (0.9-2) Blood Type Antibody Screen Crossmatch 06/28/19 06/28/19 06/28/19 Range/Units 12:28 12:48 12:48 WBC (4.8-10.8) K/uL RBC (4.7-6.1) M/uL Hgb (14.0-18.0) g/dL Hct (42-52) % MCV (80-100) fL MCH (25-34) pg MCHC (32-36) g/dL RDW Std Deviation (36.4-46.3) fL RDW Coeff of Ekta (11.5-14.5) % Plt Count (130-400) K/uL MPV (7.4-10.4) fL Immature Gran % (Auto) % Neut % (Auto) % Lymph % (Auto) % [place] % (Auto) % Eos % (Auto) % Baso % (Auto) % Immature Gran # (Auto) (0.00-0.02) K/uL Neut # (Auto) (1.4-6.5) K/uL Lymph # (Auto) (1.2-3.4) K/uL [place] # (Auto) (0.11-0.59) K/uL Eos # (Auto) (0-0.5) K/uL Baso # (Auto) (0-0.2) K/uL Hypochromasia PT (9.0-12.0) Seconds INR (0.9-1.1) APTT (21.0-31.0) Seconds PTT Ratio VBG pH 7.37 (7.36-7.41) VBG pCO2 45 (38-50) mmHg VBG pO2 58 mmHg VBG HCO3 26 mmol/L VBG O2 Saturation 88.0 % VBG Base Excess 0.2 mEq/L Barometric Pressure 731.0 mm/Hg Sodium (136-145) mmol/L Potassium (3.5-5.1) mmol/L Chloride (98-107) mmol/L Carbon Dioxide (21-32) mmol/L Anion Gap (3-11) BUN (7-18) mg/dl Creatinine (0.6-1.4) mg/dl Est Cr Clr Drug Dosing ml/min Est GFR ( Amer) Est GFR (Non-Af Amer) BUN/Creatinine Ratio (10-20) Glucose (70-99) mg/dl Lactate 1.7 (0.4-2.0) mmol/L Calcium (8.5-10.1) mg/dl Phosphorus (2.5-4.9) mg/dl Magnesium (1.8-2.4) mg/dl Total Bilirubin (0.2-1) mg/dl Direct Bilirubin (0-0.2) mg/dl AST (15-37) U/L ALT (12-78) U/L Alkaline Phosphatase (45-117) U/L Troponin I (0-0.045) ng/ml Total Protein (6.4-8.2) gm/dl Albumin (3.4-5.0) gm/dl Globulin (2.5-4.0) gm/dl Albumin/Globulin Ratio (0.9-2) Blood Type B Positive Antibody Screen NEGATIVE Crossmatch See Detail Imaging Data Radiologist's Impression: Radiology results as stated below per my review and the radiologist's interpretation: CT OF THE ABDOMEN AND PELVIS WITHOUT CONTRAST CLINICAL HISTORY: Anemia. Shortness of breath. History of GI bleed. COMPARISON STUDY: CT of the abdomen and pelvis May 14, 2019. Renal ultrasound June 13, 2019. TECHNIQUE: Axial images of the abdomen and pelvis were obtained without IV contrast. Images were reviewed in the axial, sagittal, and coronal planes. Automated exposure control was utilized for the study. A dose lowering technique was utilized adhering to the principles of ALARA. FINDINGS: Imaged portions of the lower chest partially visualize bilateral pleural effusions which are likely moderate in size. There is right lower lobe atelectasis and subpleural left lower lobe atelectasis. There is also subtotal right middle lobe atelectasis. Mild airspace opacity within the anterior segment of the right upper lobe is noted. No pneumatosis is noted. Evaluation of the abdomen and pelvis is suboptimal on this unenhanced exam. The liver, spleen, left adrenal gland pancreas are unremarkable. There is no biliary or pancreatic ductal dilatation. There are numerous gallstones within the gallbladder. There is mild gallbladder wall thickening. A 2.2 cm right adrenal nodule is unchanged. Water attenuation bilateral renal lesions are shown to reflect cysts on prior exam. Was no hydronephrosis. There is moderate left renal atrophy. Anasarca is noted. Small amount of ascites with presacral infiltration within the pelvis is noted. A moderate amount of stool within the rectum is noted. There is mild bladder wall thickening. Images of the pelvis are degraded by streak artifact from bilateral hip arthroplasties. Fat containing right inguinal hernia is noted. A locule of gas within a right inguinal hernia is noted. There is also a small locule of gas adjacent to the right anterior aspect of the bladder. No bowel is present within the hernia sac. There are no suspicious osseous lesions. Postoperative findings within the spine are noted. Small bowel anastomosis is noted. IMPRESSION: 1. Small amount of gas within the right inguinal canal and locule of gas adjacent to the right anterior aspect of the bladder. This gas is nonspecific a nd may be postsurgical/related to recent intervention. Correlation with recent procedural history is recommended. Fat-containing right inguinal hernia. 2. Evidence for volume overload with anasarca. Moderate bilateral pleural effusions with right lower lobe collapse, subtotal right middle lobe collapse and segmental left lower lobe atelectasis. 3. No bowel obstruction. 4. Cholelithiasis with mild gallbladder wall thickening, a nonspecific finding which may be related to volume overload. This could be correlated with right upper quadrant pain. 5. Moderate amount of stool within the rectum. Mild rectal wall thickening. ACT 112: Negative or not required by law. Electronically signed by: Mychal Flores M.D. 06/28/2019 2:26 PM XR chest 1V portable HISTORY: SEPSIS COMPARISON: Chest 05/19/2019. FINDINGS: No pneumothorax. Cardiomegaly, small bilateral pleural effusions, and bibasilar densities persist. There is mild central pulmonary vascular congestion without overt edema. Right jugular catheter terminates at the proximal SVC. The upper lung zones remain clear. IMPRESSION: No change in the cardiomegaly, small bilateral pleural effusions, and bibasilar densities. Mild pulmonary vascular congestion has slightly improved. ACT 112: Negative or not required by law. Electronically signed by: Pavan Meek M.D. 06/28/2019 1:13 PM ECG Data Attestation: I personally reviewed and interpreted this ECG as follows: Indication: + SOB/dyspnea and + weakness Rate (beats per minute): 61 Rhythm: + atrial fibrillation ECG Intervals/blocks: + Right Bundle branch block ECG [place]: + Normal ECG ST segments: + T-wave inversions (TWI anteriorly.); no ST depression and no ST elevation ECG Findings: + Other (QT-c 424.) Blood Pressure Blood Pressure Findings: Elevated blood pressure Blood Pressure Disposition: further management by hospitalist MITCH Hernandez The patient is a pleasant 78-year-old gentleman with a past medical history of a complicated hospital course over the past 6 weeks involving emergent abdominal surgery for incarceratd inguinal hernia repair, GI bleed with respiratory failure intubation in the setting of Sepsis/ARDS who presents emergency department from his long-term facility after developing worsening shortness of breath in the setting of steadily downtrending H/H per HPI. On arrival the patient is ill-appearing but no acute distress, afebrile stable vital signs. He has diminished breath sounds at the bases. He denies any bloody or black stools. Abdomen is benign. Exhibits generalized weakness throughout without any focal neuro deficits. The patient did have blood work accompanying him from [facility] which demonstrated a hemoglobin of 6.8. Repeat blood work here demonstrates WBC 10.8 similar to prior range of values. H/H 7.2/22.7 with a downtrend from his last admission in May. Platelets within normal limits. Chemistry without acidosis. VBG unremarkable. Creatinine is 3.8 approximate 2 prior range of values in the setting of the patient's renal disease following his critical illness. Electrolytes and LFTs unremarkable. Troponin 0.05 newly elevated from recent. Chest x-ray demonstrates no significant change in the patient's bilateral pleural effusions and bibasilar densities. However there is slightly improved vascular congestion. CT abdomen pelvis demonstrates likely post operative changes. Anna ent's lung findings are further clarified with bilateral pleural effusions with right lower lobe collapse and right middle lobe collapse. Given reassuring LFTs mild gallbladder wall thickening likely related to the patient's volume overload. The patient's downtrending H/H certainly this could explain the patient's recent dyspnea. However given the patient's lung findings may also still have a component of infection. The patient was consented for blood transfusion for which she was agreeable. Patient was ordered for 2 units of PRBCs. Case was discussed with Dr. Burger, [facility] hospitalist, who will evaluate the patient for admission. We agreed to treat with ceftriaxone and doxycycline for now given the patient's dyspnea and lung findings on imaging. The patient and at the bedside were updated. Note, at this time the patient was expressing to his increased interest in goals of care to go home at some point. We did discuss the possibility of making that decision. However we agreed it would be best to proceed with admission for stabilization and palliative care consultation to help establish home resources prior to considering this. Admitting team was updated. Impression & Plan Symptomatic anemia, Elevated troponin, CKD (chronic kidney disease), Dyspnea, Pleural effusion Discharge Plan Visit Data *Final* Discharge Date/Time: 06/28/19 19:20 Chief Complaint: Shortness of Breath/Dyspnea ED Provider: Dave Mccormack Discharge Problem: Symptomatic anemia, Elevated troponin, CKD (chronic kidney disease), Dyspnea, Pleural effusion Patient Disposition: Admitted As Inpatient Discharge Instructions Interventions: ED Discharge Assessment Last Done: 06/28/19 19:20 Discharge Problem: CKD (chronic kidney disease) Qualifiers: Chronic kidney disease stage: unspecified stage Qualified Code(s): N18.9 - Chronic kidney disease, unspecified The scribe's documentation has been prepared under my direction and personally reviewed by me in its entirety. I confirm that the note above accurately reflects all work, treatment, procedures, and medical decision making performed by me.
[2019-06-28] MEDS ORDERED: ONDANSETRON INJ 2 MG/ML 2 ML VIAL IV PRN (19:58)
[2019-06-28] MEDS ORDERED: MAGNESIUM HYDROXIDE SUSP 30 ML UDC PO PRN (19:58)
[2019-06-28] MEDS ORDERED: ALUMINUM/MAGNESIUM SUSP 30 ML UDC PO PRN (19:58)
[2019-06-28] MEDS ORDERED: ACETAMINOPHEN 325 MG TAB PO PRN (19:58)
[2019-06-28] MEDS ORDERED: bisacodyL 10 MG SUPP PR PRN (19:58)
[2019-06-28] MEDS ORDERED: GLUCAGON FOR INJ 1 MG VIAL SQ PRN (20:09)
[2019-06-28] MEDS ORDERED: CARBOHYDRATES FOR HYPOGLYCEMIA PO PRN (20:09)
[2019-06-28] MEDS ORDERED: DEXTROSE 50% 50 ML SYRINGE IV PRN (20:09)
[2019-06-28] MEDS ORDERED: GLUCOSE 40% GEL 15 GM TUBE PO PRN (20:09)
[2019-06-28] MEDS ORDERED: GLUCOSE 10 TABS/TUBE PO PRN (20:09)
[2019-06-28] MEDS: ALBUT/IPRATROP 3MG/0.5MG NEB 3 ML VIAL NEB SCH ×2 (20:27→23:07)
[2019-06-28] MEDS ORDERED: PHARMACY GLYCEMIC MGMT CONSULT PRN (20:45)
[2019-06-28] MEDS ORDERED: INSULIN GLARGINE SOLOSTAR 100 UNITS/ML 3 ML PEN SC ONE (21:00)
[2019-06-28] MEDS ORDERED: NON-FORMULARY MEDICATION (Vit C,E-Zn-Coppr-Lutein-Zeaxan [Preservision Areds-2] 1 TAB) PO SCH (21:00)
[2019-06-28] MEDS: INSULIN ASPART 100 UNITS/ML 3 ML PEN SC SCH (21:17)
[2019-06-28 21:18] LABS: Troponin I 0.05 ng/ml (0-0.045)
[2019-06-28] MEDS: carvediloL 6.25 MG TAB PO SCH (21:23)
[2019-06-28] MEDS: IPRATROPIUM BROMIDE NASAL SPRAY 0.06% 15ML NAE SCH (21:24)
[2019-06-28] MEDS: FLUVOXAMINE MALEATE 50 MG TAB PO SCH (21:24)
[2019-06-28] MEDS: GABAPENTIN 100 MG CAP PO SCH (21:25)
[2019-06-28] MEDS: PRAVASTATIN SOD 10 MG TAB PO SCH (21:25)
[2019-06-28] MEDS: metroNIDAZOLE 500 MG/100 ML BAG IV SCH (21:38)
[2019-06-28] MEDS: BUMETANIDE 1 MG in SYRINGE 0 ML IV SCH (21:40)
[2019-06-29] MEDS: INSULIN ASPART 100 UNITS/ML 3 ML PEN SC SCH ×6 (00:32→20:57)
[2019-06-29 01:30] LABS: Basophils # (auto) 0.01 K/uL (0-0.2); Basophils % (auto) 0.1 %; Eosinophils # (auto) 0.03 K/uL (0-0.5); Eosinophils % (auto) 0.2 %; Hematocrit (blood only) 29.3 % (42-52); Hemoglobin 9.6 g/dL (14.0-18.0); Immature Granulocytes # (auto) 0.05 K/uL (0.00-0.02); Immature Granulocytes % (auto) 0.4 %; Lymphocytes # (auto) 4.55 K/uL (1.2-3.4); Lymphocytes % (auto) 36.1 %; Mean Corpuscular Hemoglobin 27.7 pg (25-34); Mean Corpuscular Hgb Conc 32.8 g/dL (32-36); Mean Corpuscular Volume 84.7 fL (80-100); Mean Platelet Volume 8.7 fL (7.4-10.4); Monocytes # (auto) 0.81 K/uL (0.11-0.59); Monocytes % (auto) 6.4 %; Neutrophils # (auto) 7.15 K/uL (1.4-6.5); Neutrophils % (auto) 56.8 %; Platelet Count 277 K/uL (130-400); RDW Coefficient of Variation 15.2 % (11.5-14.5); RDW Standard Deviation 47.4 fL (36.4-46.3); Red Blood Count 3.46 M/uL (4.7-6.1)
[2019-06-29 01:49] LABS: Albumin Level 1.8 gm/dl (3.4-5.0); BUN Creatinine Ratio 21.6 (10-20); Calcium 8.5 mg/dl (8.5-10.1); Creatinine Clr Calc Pharmacy 20.9 ml/min; Est GFR (African American) 17.2; Est GFR (Non-African American) 14.8; Potassium 3.6 mmol/L (3.5-5.1)
[2019-06-29 01:58] LABS: Albumin Globulin Ratio 0.4 (0.9-2); Bilirubin,Total 0.6 mg/dl (0.2-1); Globulin 4.1 gm/dl (2.5-4.0); Total Protein 5.9 gm/dl (6.4-8.2); Troponin I 0.053 ng/ml (0-0.045)
[2019-06-29] MEDS: ALBUT/IPRATROP 3MG/0.5MG NEB 3 ML VIAL NEB SCH ×6 (02:07→23:02)
[2019-06-29] MEDS: metroNIDAZOLE 500 MG/100 ML BAG IV SCH ×2 (06:04→15:21)
[2019-06-29] MEDS ORDERED: BUMETANIDE 1 MG TAB PO SCH (09:00)
--- NOTE | 2019-06-29 09:01 | Palliative Care Consultation ---
Date of Consultation June 29, 2019 Assessment & Plan (1) Goals of care, counseling/discussion: This patient is a 78 years old male who is known to the palliative care service and had a recent complicated inpatient hospitalization here at the [facility] from May 14 - May 31 that included a strangulated and necrotic bowel obstruction in the right inguinal canal s/p small bowel resection on May 14. Postoperatively, he was subsequently transferred to the ICU and required intubation, vasopressor support for hypotension, and dialysis. The patient was subsequently transferred to [facility] in [place] for another admission in May and from there, he was discharged to [facility]. Last evening, the patient was transferred from [facility] with shortness of breath. On arrival, laboratory work revealed a decreased hemoglobin and hematocrit; 7.2 and 22.7. He was transfused 2 UPRBC's and now Hgb is 9.6. His creatinine ranges from 3-4, currently 3.61. Additional PMH includes HTN, HLD, gout, CKD IV, AFib, PVD, CAD, cholelithiasis, depression, and chronic anemia. The patient and his stated that they no longer wish to pursue aggressive hemodialysis and want to take a more conservative approach. Palliative care was consulted to discuss goals of care. -I met with the patients , Leticia, initially outside of the room as nursing was working with the patient. She stated that he has been through so much and has recently stated that he just wants to go home. She has stated that he has not been home in over 2 months and she "thinks it is time" as well. -She did indicate that they would like to learn more about Hospice as they believe this is the path they would like to take. -During our discussion about goals of care, the [employer] Packer Dr. Arana joined our conversation, offering similar support and reassurance regarding their decision to stop hemodialysis. The patients , Leticia, stated that they really would like to talk to Dr. Reyna to express their wishes as well. The pt nurse, Carmen, paged Dr. Reyna and they were able to have a phone call with him in the patients room. -Once I was able to meet with the patient, he actually looks healthy and well. He was able to participate fully in the goals of care conversation and said "I k now that when I stop dialysis, eventually I will need it and if I don't do it, I will . I am at peace with that now." -The patient is still able to eat and has an appetite. he continues to make uri ne as well. He favors his left side and feels it is "stronger" overall. -They live in a condominum in [place], on the first floor and he said it would bring him vasu to go home and watch TV with his on their "big screen TV", and hopefully be able to go outside once in a while, even if its cold. -A POLST form was completed at the bedside indicating DNR/DNI, Comfort Measures Only, trial abx with comfort as main goal and no artificial hydration/nutrition. -I spoke with Misha regarding discussing hospice agencies and providing a 24/7 care list as well, for possible private caregivers as needed. -Hopefully, he could be discharged over the next day or two, once an agency is decided upon and equipment is delivered. Pt will need a hospital bed, bedside table, wheelchair, and oxygen. -No current symptom management needs at this time. -PPS: 30% -Palliative care will follow and assist as needed. Please contact us for any additional questions. (2) Acute respiratory failure: (3) Chronic kidney disease, stage IV (severe): (4) Atrial fibrillation: History of Present Illness Reason for Consultation: goals of care Requesting Physician: Dr. Burger Attending Physician: Javier Ceja DO History of Present Illness This patient is a 78 years old male who is known to the palliative care service and had a recent complicated inpatient hospitalization here at the [facility] from May 14 - May 31 that included a strangulated and necrotic bowel obstruction in the right inguinal canal s/p small bowel resection on May 14. Postoperatively, he was subsequently transferred to the ICU and required intubation, vasopressor support for hypotension, and dialysis. The patient was subsequently transferred to [facility] in [place] for another admission in May and from there, he was discharged to [facility]. Last evening, the patient was transferred from [facility] with shortness of breath. On arrival, laboratory work revealed a decreased hemoglobin and hematocrit; 7.2 and 22.7, he was transfused 2 UPRBC's and now Hgb is 9.6. His creatinine ranges from 3-4, currently 3.61. Additional PMH includes HTN, HLD, gout, CKD Stage V, AFib, PVD, CAD, cholelithiasis, depression, and chronic anemia. The patient and his stated that they no longer wish to pursue aggressive hemodialysis and want to take a more conservative approach. Palliative care was consulted to discuss goals of care. Please see A/P for further information. Thank you kindly for including the palliative care team with this patient. Allergies Allergy/AdvReac Type Severity Reaction Status Date / Time latex Allergy Unknown LOCAL SKIN Verified 06/28/19 14:24 IRRITATION lisinopril Allergy Unknown hyperkalemi Verified 06/28/19 14:24 a sulfamethoxazole AdvReac increases Verified 06/28/19 14:24 [From Bactrim] potassium trimethoprim [From Bactrim] AdvReac increases Verified 06/28/19 14:24 potassium Home Medications Home Medications Medication Instructions Recorded Confirmed Type ascorbic acid (vitamin C) 1,000 mg PO QAM 10/08/18 06/28/19 History pravastatin 10 mg PO HS 10/08/18 06/28/19 History febuxostat [Uloric] 40 mg PO QAM 12/14/18 06/28/19 History cholecalciferol (vitamin D3) 25 1,000 units PO QAM 01/17/19 06/28/19 History mcg (1,000 unit) capsule fluvoxamine 100 mg PO HS 03/03/19 06/28/19 History ipratropium bromide 42 mcg (0.06 2 spray INTRANASAL BID #15 ml 04/07/19 06/28/19 Rx %) nasal spray PreserVision AREDS-2 1 tab PO BID 05/14/19 06/28/19 History famotidine 40 mg PO QAM 05/14/19 06/28/19 History gabapentin 200 mg PO HS 05/14/19 06/28/19 History glipizide 5 mg PO QAM 05/14/19 06/28/19 History carvedilol 6.25 mg PO BID 06/13/19 06/28/19 History amlodipine 10 mg PO QAM #0 tab 06/16/19 06/28/19 Rx acetaminophen 325 mg PO QID PRN 06/28/19 06/28/19 History bisacodyl 10 mg [place] DAILY PRN 06/28/19 06/28/19 History bumetanide 1 mg PO DAILY 06/28/19 06/28/19 History docusate sodium [Colace] 100 mg PO DAILY 06/28/19 06/28/19 History doxycycline hyclate 100 mg PO BID 06/28/19 06/28/19 History prednisone 40 mg PO DAILY 06/28/19 06/28/19 History Patient History Medical History (Updated 06/29/19 @ 11:31 by Alecia Appiah MD) Acute respiratory failure with hypoxia Admitted to intensive care unit Adrenal nodule Afib Arthritis Aspiration into airway Asymptomatic cholelithiasis Cataracts, both eyes RIGHT EYE BEING DONE FIRST Chronic kidney disease, stage III (moderate) (Resolved) Constipation Coronary arteriosclerosis Delirium Diabetes Diastolic dysfunction Encounter for pre-operative examination GERD (gastroesophageal reflux disease) High cholesterol History of stress test 2009 [place] D/T PASSED OUT WENT TO [facility] 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 OF THIS Hx of fall 09/2018 - SEEN IN ED - HAD CT OF HEAD - NEGATIVE Melena Mitral regurgitation Normal pressure hydrocephalus Peripheral artery disease LEFT LEG Renal insufficiency Severe sepsis with septic shock Stage 5 chronic kidney disease not on chronic dialysis Thrombocytopenia (Resolved) Surgical History History of back surgery L3-L4 History of left hip replacement History of parathyroidectomy (Resolved) PARTIAL History of right hip replacement X2 Hx of hernia repair Post-operative state Family History Father Myocardial infarction Mother Gout CHF (congestive heart failure) Social History Preferred Language: Faroese Communication Ability: Effective Ammonia Distiller Required: No Beliefs That Will Affect Care: None Current Living Situation: Senior Living Current Living Situation Comment: [facility] Feels Safe at Home: Yes Smoking Status: Former smoker Tobacco Type: cigarettes ; Second Hand Exposure: No ; Hx Alcohol Use: No Hx Substance Use: No Review of Systems Review of Systems: General: Pt denies pain HEENT: Pt denies JONES, dizziness, visual changes CV: Pt denies Chest pain, palpitations Resp: Pt denies SOB, + wet, but non-productive cough GI: Pt denies abdominal pain, N/V : indwelling Valera catheter Skin: (-) new rashes Psych: Pt denies depression at this time Physical Exam Constitutional: well developed, well nourished, healthy appearing and cooperative Neck: trachea midline, no thyromegaly Respiratory: normal respiratory effort, lungs clear to auscultation + cough (moist, non-productive) Auscultation: + diminished lung sounds Cardiovascular: RRR, no murmur, no edema Gastrointestinal (Abdomen): normal bowel sounds, soft, nontender, no hepatosplenomegaly Inspection/Auscultation: + hypoactive bowel sounds Skin: no rashes, warm and dry open wound on left heel Psychiatric: A+Ox3, euthymic affect Genitourinary: indwelling valera catheter in place, draining clear yellow urine Results & Data Vital Signs (Past 12 Hours) Vital Signs Temp Pulse Pulse Resp BP Pulse Ox 06/29/19 08:09 36.6 C 56 L 19 147/69 H 94 06/29/19 07:08 84 19 93 06/29/19 04:41 36.4 C L 57 L 18 146/73 H 95 06/29/19 02:08 60 16 94 06/29/19 00:00 36.4 C L 56 L 59 L 20 149/66 H 95 06/28/19 23:08 58 L 18 95 PG Care Time/CCT Total # of Minutes Spent Total Time Spent with Patient: Total time spent is greater than 50% in coordination of care (as documented) at patient's floor/unit and/or counseling patient: 70 Time Spent Midlevel Total time spent 70 minutes with > 50% of that time spent assessing the patient, discussing goals of care, and completing a POLST form.
[2019-06-29] MEDS: ASCORBIC ACID 500 MG TAB PO SCH (09:15)
[2019-06-29] MEDS: DOXYCYCLINE HYCLATE 100 MG CAP PO SCH ×2 (09:15→20:39)
[2019-06-29] MEDS: FAMOTIDINE 40 MG TABLET PO SCH (09:15)
[2019-06-29] MEDS: CHOLECALCIFEROL 1,000 UNITS TAB PO SCH (09:15)
[2019-06-29] MEDS: AMLODIPINE BESYLATE 5 MG TAB PO SCH (09:15)
[2019-06-29] MEDS: BUMETANIDE 1 MG in SYRINGE 0 ML IV SCH (09:15)
[2019-06-29] MEDS: FEBUXOSTAT 40 MG TABLET PO SCH (09:15)
[2019-06-29] MEDS: IPRATROPIUM BROMIDE NASAL SPRAY 0.06% 15ML NAE SCH ×2 (09:16→20:32)
[2019-06-29] MEDS: carvediloL 6.25 MG TAB PO SCH ×2 (09:16→20:32)
[2019-06-29] MEDS: DOCUSATE SODIUM 100 MG CAP PO SCH (09:16)
--- NOTE | 2019-06-29 10:12 | Electrocardiogram Report ---
Test Reason : Blood Pressure : / mmHG Vent. Rate : 055 BPM Atrial Rate : 357 BPM P-R Int : 000 ms QRS Dur : 130 ms QT Int : 428 ms P-R-T Axes : 000 024 006 degrees QTc Int : 409 ms Atrial fibrillation with slow ventricular response Right bundle branch block Abnormal ECG When compared with ECG of 28-JUN-2019 13:00, No significant change was found Confirmed by Андрей Vargas ([id number]) on 06/29/2019 10:11:38 AM Referred By: REFERRED SELF Confirmed By:Андрей Vargas
--- NOTE | 2019-06-29 10:28 | Hospitalist Progress Note ---
Date of Service June 29, 2019 Assessment & Plan (1) Goals of care, counseling/discussion: Symptomatic anemia with shortness of breath: - Received 2 units of blood overnight. Feels better, less SOB. - Pt is hospice care at this time; no further blood draws. Comfort care moving forward. - DVT prophylaxis SCDs and teds. - DNR/DNI per patient request. - Recommended incentive spirometry and to try to expand the lung. - Continue duo nebs every 4 hours, Ipratropium bromide nasal spray spray 2 sprays twice daily. - Continue ceftriaxone and Flagyl for pneumonia symptomatic treatment. Elevated troponin: - Patient denies chest pain. - Elevated troponin is most likely due to CKD stage V. - No intervention; pt is hospice care. CKD (chronic kidney disease): - Worsening CKD stage III-IV and now 5. - Patient refuses hemodialysis an is hospice care. - Avoid nephrotoxic agents Depression: - Continue fluvoxamine 100mg p.o. nightly. - Patient denies suicidal ideations Hypertension: - Continue amlodipine 10 mg p.o. every morning, carvedilol 6.25 mg p.o. twice daily. Diabetic neuropathy: - Continue home medicine gabapentin 200 mg p.o. nightly Diabetes mellitus type 2 in obese: - Glycemic control per pharmacy Gout: - Continue febuxostat 40 mg p.o. every morning Code Status: FULL CODE FEN/GI: dialysis renal diet DVT ppx: SCDs Dispo: med/surg (2) Stage 5 chronic kidney disease not on chronic dialysis: (3) Diabetes mellitus type 2 in nonobese: (4) Hypertension: (5) Atrial fibrillation: (6) CKD (chronic kidney disease): (7) Pneumonia: Supervising Physician Co-Signing Physician Notes I personally examined the patient and verified all blanc points of history and exam, discussed case, and agree with decision making with Dr Chiang. Feeling okay now. No focal complaints, main concerns are just about what they should be doing moving forward with comfort care type goals. Extensive discussions, answered all questions to the best my ability. Vitals noted, in general he is awake and alert pleasant no distress. HEENT normocephalic atraumatic mucous membranes moist. Breathing unlabored no accessory muscle use good effort. Skin shows no rashes no pallor or icterus. Symptomatic anemiaseems to have improved status post transfusion. We discussed this in the context of ongoing follow-up with goals of comfort, and that if he is having good quality of life in between times of symptomatic anemia, it would be reasonable to continue to follow his hemoglobin and transfuse as needed. Further discussed other overall goals of care and a comfort/palliative mindset. Await input from hospice agency and once the patient and feel they have what they need at home, then we can work towards getting him home. Otherwise as above. Subjective Pt without acute events overnight. Interested in discussing goals of care and comfort with palliative care and hospice teams. Pt reports less shortness of breath and overall feels more well today. No chest pain or palpitations, no abdominal pain. No fevers or chills. Recently started treatment for a pneumonia about 4 days ago. Review of Systems Review of Systems: General: Pt denies pain CV: Pt denies Chest pain, palpitations Resp: Pt denies SOB, non-productive cough GI: Pt denies abdominal pain, N/V : indwelling Toribio catheter Psych: Pt denies depression at this time Physical Exam Constitutional: well developed and + ill appearing Respiratory: normal respiratory effort, lungs clear to auscultation Cardiovascular: RRR, no murmur, no edema Gastrointestinal (Abdomen): normal bowel sounds, soft, nontender, no hepatosplenomegaly surgical incision site in R groin well healed with no drainage, no erythema or tenderness to palpation Musculoskeletal: Extremities: extremities normal to inspection Gait: normal gait Skin: no rashes, warm and dry Neurologic: moves all extremities and awake Psychiatric: A+Ox3, euthymic affect Results & Data Vital Signs (Past 12 Hours) Vital Signs Temp Pulse Pulse Resp BP Pulse Ox 06/29/19 08:09 36.6 C 56 L 19 147/69 H 94 06/29/19 07:08 84 19 93 06/29/19 04:41 36.4 C L 57 L 18 146/73 H 95 06/29/19 02:08 60 16 94 06/29/19 00:00 36.4 C L 56 L 59 L 20 149/66 H 95 06/28/19 23:08 58 L 18 95 Laboratory Results Laboratory Results - last 24 hr 06/28/19 06/28/19 06/28/19 12:48 20:21 20:33 WBC RBC Hgb Hct MCV MCH MCHC RDW Std Deviation RDW Coeff of Ekta Plt Count MPV Immature Gran % (Auto) Neut % (Auto) Lymph % (Auto) [place] % (Auto) Eos % (Auto) Baso % (Auto) Immature Gran # (Auto) Neut # (Auto) Lymph # (Auto) [place] # (Auto) Eos # (Auto) Baso # (Auto) Sodium Potassium Chloride Carbon Dioxide Anion Gap BUN Creatinine Est Cr Clr Drug Dosing Est GFR ( Amer) Est GFR (Non-Af Amer) BUN/Creatinine Ratio Glucose POC Glucose Calcium Total Bilirubin AST ALT Alkaline Phosphatase Troponin I 0.050 H* NT-Pro-B Natriuret Pep 87410 H Total Protein Albumin Globulin Albumin/Globulin Ratio Procalcitonin Nasal Screen MRSA (PCR) Negative Crossmatch See Detail 06/28/19 06/28/19 06/29/19 20:33 21:15 00:06 WBC RBC Hgb Hct MCV MCH MCHC RDW Std Deviation RDW Coeff of Ekta Plt Count MPV Immature Gran % (Auto) Neut % (Auto) Lymph % (Auto) [place] % (Auto) Eos % (Auto) Baso % (Auto) Immature Gran # (Auto) Neut # (Auto) Lymph # (Auto) [place] # (Auto) Eos # (Auto) Baso # (Auto) Sodium Potassium Chloride Carbon Dioxide Anion Gap BUN Creatinine Est Cr Clr Drug Dosing Est GFR ( Amer) Est GFR (Non-Af Amer) BUN/Creatinine Ratio Glucose POC Glucose 172 H 144 H Calcium Total Bilirubin AST ALT Alkaline Phosphatase Troponin I NT-Pro-B Natriuret Pep Total Protein Albumin Globulin Albumin/Globulin Ratio Procalcitonin 0.22 Nasal Screen MRSA (PCR) Crossmatch 06/29/19 06/29/19 06/29/19 01:07 01:07 04:38 WBC 12.60 H RBC 3.46 L Hgb 9.6 L Hct 29.3 L MCV 84.7 MCH 27.7 MCHC 32.8 RDW Std Deviation 47.4 H RDW Coeff of Ekta 15.2 H Plt Count 277 MPV 8.7 Immature Gran % (Auto) 0.4 Neut % (Auto) 56.8 Lymph % (Auto) 36.1 [place] % (Auto) 6.4 Eos % (Auto) 0.2 Baso % (Auto) 0.1 Immature Gran # (Auto) 0.05 H Neut # (Auto) 7.15 H Lymph # (Auto) 4.55 H [place] # (Auto) 0.81 H Eos # (Auto) 0.03 Baso # (Auto) 0.01 Sodium 139 Potassium 3.6 Chloride 105 Carbon Dioxide 27 Anion Gap 7.0 BUN 80 H Creatinine 3.71 H Est Cr Clr Drug Dosing 20.9 Est GFR ( Amer) 17.2 Est GFR (Non-Af Amer) 14.8 BUN/Creatinine Ratio 21.6 H Glucose 121 H POC Glucose 89 Calcium 8.5 Total Bilirubin 0.6 AST 23 ALT 32 Alkaline Phosphatase 145 H Troponin I 0.053 H* NT-Pro-B Natriuret Pep Total Protein 5.9 L Albumin 1.8 L Globulin 4.1 H Albumin/Globulin Ratio 0.4 L Procalcitonin Nasal Screen MRSA (PCR) Crossmatch 06/29/19 06/29/19 06/29/19 07:21 11:37 16:39 WBC RBC Hgb Hct MCV MCH MCHC RDW Std Deviation RDW Coeff of Ekta Plt Count MPV Immature Gran % (Auto) Neut % (Auto) Lymph % (Auto) [place] % (Auto) Eos % (Auto) Baso % (Auto) Immature Gran # (Auto) Neut # (Auto) Lymph # (Auto) [place] # (Auto) Eos # (Auto) Baso # (Auto) Sodium Potassium Chloride Carbon Dioxide Anion Gap BUN Creatinine Est Cr Clr Drug Dosing Est GFR ( Amer) Est GFR (Non-Af Amer) BUN/Creatinine Ratio Glucose POC Glucose 82 82 106 H Calcium Total Bilirubin AST ALT Alkaline Phosphatase Troponin I NT-Pro-B Natriuret Pep Total Protein Albumin Globulin Albumin/Globulin Ratio Procalcitonin Nasal Screen MRSA (PCR) Crossmatch Medications Administered Current Medications Acetaminophen (Tylenol) 650 mg PO Q4H PRN PRN Reason: Pain or Fever Stop: 07/28/19 19:57 Al Hydrox/Mg Hydrox/Simethicone (Maalox) 15 ml PO Q4H PRN PRN Reason: Dyspepsia Stop: 07/28/19 19:57 Albuterol (Duoneb) 3 ml NEB Q4R [facility] Stop: 07/28/19 20:29 Last Admin: 06/29/19 15:03 Dose: 3 ml Documented by: Amlodipine Besylate (Norvasc) 10 mg PO QAM [facility] Stop: 07/29/19 08:59 Last Admin: 06/29/19 09:15 Dose: 10 mg Documented by: Ascorbic Acid (Vitamin C) 1,000 mg PO QAM [facility] Stop: 07/29/19 08:59 Last Admin: 06/29/19 09:15 Dose: 1,000 mg Documented by: Bisacodyl (Dulcolax) 10 mg NC DAILY PRN PRN Reason: Constipation Stop: 07/28/19 19:57 Carvedilol (Coreg) 6.25 mg PO BID [facility] Stop: 07/28/19 20:59 Last Admin: 06/29/19 09:16 Dose: 6.25 mg Documented by: Dextrose (Dextrose 50%) 25 - 50 ml IV UD PRN; Protocol PRN Reason: Hypoglycemia Protocol Stop: 07/28/19 20:08 Docusate Sodium (Colace) 100 mg PO DAILY [facility] Stop: 07/29/19 08:59 Last Admin: 06/29/19 09:16 Dose: 100 mg Documented by: Doxycycline Hyclate (Vibramycin) 100 mg PO BID [facility] Stop: 07/06/19 08:59 Last Admin: 06/29/19 09:15 Dose: 100 mg Documented by: Famotidine (Pepcid) 40 mg PO QAM [facility] Stop: 07/29/19 08:59 Last Admin: 06/29/19 09:15 Dose: 40 mg Documented by: Febuxostat (Uloric) 40 mg PO DAILY [facility] Stop: 07/29/19 08:59 Last Admin: 06/29/19 09:15 Dose: 40 mg Documented by: Fluvoxamine Maleate (Luvox) 100 mg PO HS [facility] Stop: 07/28/19 20:59 Last Admin: 06/28/19 21:24 Dose: 100 mg Documented by: Gabapentin (Neurontin) 200 mg PO HS [facility] Stop: 07/28/19 20:59 Last Admin: 06/28/19 21:25 Dose: 200 mg Documented by: Glucagon (Glucagen) 1 mg SQ UD PRN; Protocol PRN Reason: Hypoglycemia Protocol Stop: 07/28/19 20:08 Glucose (Dex4 Glucose) 4 - 8 tabs PO UD PRN; Protocol PRN Reason: Hypoglycemia Protocol Stop: 07/28/19 20:08 Glucose (Glucose 40%) 15 - 30 gm PO UD PRN; Protocol PRN Reason: Hypoglycemia Protocol Stop: 07/28/19 20:08 Ceftriaxone Sodium 2,000 mg/ (Dextrose) 70 mls @ 100 mls/hr IV Q24H [facility]; Protocol Stop: 07/05/19 15:59 Last Infusion: 06/29/19 17:01 Dose: Infused Documented by: Bumetanide 1 mg/ Syringe 4 mls @ 4 mls/min IV DAILY [facility] Stop: 07/28/19 20:29 Last Admin: 06/29/19 09:15 Dose: 4 mls/min Documented by: Insulin Aspart (Novolog Flexpen) 0 units SC ACHS [facility] Stop: 07/28/19 20:59 Last Admin: 06/29/19 17:40 Dose: 4 units Documented by: Ipratropium [place] (Atrovent Nasal [place] 0.06%) 2 sprays SUNNY BID [facility] Stop: 07/28/19 20:59 Last Admin: 06/29/19 09:16 Dose: 2 sprays Documented by: Magnesium Hydroxide (Milk Of Magnesia) 30 ml PO Q12H PRN PRN Reason: Constipation Stop: 07/28/19 19:57 Miscellaneous (Carbohydrates For Hypoglycemia) 15 - 30 gm PO UD PRN PRN Reason: Hypoglycemia Protocol Stop: 07/28/19 20:08 Miscellaneous Information (Consult Glycemic Management Pharmacy) 1 ea N/A UD PRN; Protocol PRN Reason: Consult Stop: 07/28/19 20:44 Ondansetron HCl (Zofran) 4 mg IV Q6H PRN PRN Reason: Nausea Stop: 07/28/19 19:57 Pravastatin Sodium (Pravachol) 10 mg PO HS [facility] Stop: 07/28/19 20:59 Last Admin: 06/28/19 21:25 Dose: 10 mg Documented by: Vitamin D (Vitamin D3) 1,000 units PO QAM [facility] Stop: 07/29/19 08:59 Last Admin: 06/29/19 09:15 Dose: 1,000 units Documented by: Resident Activity Tracking Resident Involvement: Resident Care Provided Care Provided: Adult [facility] Medicine (1) CKD (chronic kidney disease) Chronic kidney disease stage: unspecified stage Qualified Code(s): N18.9 - Chronic kidney disease, unspecified
--- NOTE | 2019-06-29 11:36 | Nephrology Consultation ---
Date of Consultation June 29, 2019 Assessment & Plan (1) Stage 5 chronic kidney disease not on chronic dialysis: Mr. Haddad has stage 5 CKD, currently off of dialysis after having dialysis for brief period. Creatinine has been staying around 3.5-4. Has decent urine output on oral Bumex. Admitted to the hospital with anemia, shortness of Breath and improved after receiving blood transfusion. Overall clinically stable and feeling slightly better compared to admission however he decided to go home with home hospice care and not to dialysis anymore. Was seen by palliative care and received information regarding home hospice care. Also had discussion with his primary Directory Clerk Dr. Carney and decided to keep the TDC in place and not go for another procedure as it has not been bothering him. --will not do any further lab --palliative care and social service will set up home hospice care prior to discharge Thank you for the consult. (2) Hypertension: (3) Symptomatic anemia: History of Present Illness Reason for Consultation: Stage 5 CKD, goals of care. Attending Physician: Javier Ceja DO History of Present Illness Mr. Hutson Admitted to the hospital with progressive shortness of breath in the setting of advanced CKD, recent multiple hospital admission for bowel surgery. On admission feel he was found to have a hemoglobin low at 7.2, received 2 units of blood transfusion with hemoglobin improved this morning. And overall feeling better. He was on dialysis for a brief period and has been off of dialysis for more than a month. Has been making decent amount of urine. Creatinine has been staying around 3.5-4. Currently he denies any symptom, overall slightly feeling better compared to admission after receiving blood transfusion and improved hemoglobin. However, he has decided not to consider dialysis and just wants to go home with home hospice care. Allergies Allergy/AdvReac Type Severity Reaction Status Date / Time latex Allergy Unknown LOCAL SKIN Verified 06/28/19 14:24 IRRITATION lisinopril Allergy Unknown hyperkalemi Verified 06/28/19 14:24 a sulfamethoxazole AdvReac increases Verified 06/28/19 14:24 [From Bactrim] potassium trimethoprim [From Bactrim] AdvReac increases Verified 06/28/19 14:24 potassium Home Medications Home Medications Medication Instructions Recorded Confirmed Type ascorbic acid (vitamin C) 1,000 mg PO QAM 10/08/18 06/28/19 History pravastatin 10 mg PO HS 10/08/18 06/28/19 History febuxostat [Uloric] 40 mg PO QAM 12/14/18 06/28/19 History cholecalciferol (vitamin D3) 25 1,000 units PO QAM 01/17/19 06/28/19 History mcg (1,000 unit) capsule fluvoxamine 100 mg PO HS 03/03/19 06/28/19 History ipratropium bromide 42 mcg (0.06 2 spray INTRANASAL BID #15 ml 04/07/19 06/28/19 Rx %) nasal spray PreserVision AREDS-2 1 tab PO BID 05/14/19 06/28/19 History famotidine 40 mg PO QAM 05/14/19 06/28/19 History gabapentin 200 mg PO HS 05/14/19 06/28/19 History glipizide 5 mg PO QAM 05/14/19 06/28/19 History carvedilol 6.25 mg PO BID 06/13/19 06/28/19 History amlodipine 10 mg PO QAM #0 tab 06/16/19 06/28/19 Rx acetaminophen 325 mg PO QID PRN 06/28/19 06/28/19 History bisacodyl 10 mg MT DAILY PRN 06/28/19 06/28/19 History bumetanide 1 mg PO DAILY 06/28/19 06/28/19 History docusate sodium [Colace] 100 mg PO DAILY 06/28/19 06/28/19 History doxycycline hyclate 100 mg PO BID 06/28/19 06/28/19 History prednisone 40 mg PO DAILY 06/28/19 06/28/19 History Patient History Medical History Acute respiratory failure with hypoxia Admitted to intensive care unit Adrenal nodule Afib Arthritis Aspiration into airway Asymptomatic cholelithiasis Cataracts, both eyes RIGHT EYE BEING DONE FIRST Chronic kidney disease, stage III (moderate) (Resolved) Constipation Coronary arteriosclerosis Delirium Diabetes Diastolic dysfunction Encounter for pre-operative examination GERD (gastroesophageal reflux disease) High cholesterol History of stress test 2009 [place] D/T PASSED OUT WENT TO [facility]. 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 OF THIS Hx of fall 09/2018 - SEEN IN ED - HAD CT OF HEAD - NEGATIVE Melena Mitral regurgitation Normal pressure hydrocephalus Peripheral artery disease LEFT LEG Renal insufficiency Severe sepsis with septic shock Thrombocytopenia (Resolved) Surgical History History of back surgery L3-L4 History of left hip replacement History of parathyroidectomy (Resolved) PARTIAL History of right hip replacement X2 Hx of hernia repair Post-operative state Family History Father Myocardial infarction Mother Gout CHF (congestive heart failure) Social History Preferred Language: Italian Communication Ability: Effective Credit Risk Specialist Required: No Beliefs That Will Affect Care: None Current Living Situation: Intermediate Current Living Situation Comment: [facility] Feels Safe at Home: Yes Smoking Status: Former smoker Tobacco Type: cigarettes ; Second Hand Exposure: No ; Hx Alcohol Use: No Hx Substance Use: No Review of Systems Review of Systems: All systems reviewed & are unremarkable except as noted in HPI & below Physical Exam Constitutional: + ill appearing; no acute distress Eyes: PERRL, conjunctivae normal, anicteric sclerae ENMT: external ear and nose normal, oropharynx normal Ears: no hearing impairment Neck: trachea midline Respiratory: normal respiratory effort, lungs clear to auscultation no cough Auscultation: no crackles, no rales and no wheezes Cardiovascular: RRR, no murmur, no edema Gastrointestinal (Abdomen): normal bowel sounds, soft, nontender, no hepatosplenomegaly Percussion/Palpation: abdomen nontender, no guarding and abdomen not rigid Musculoskeletal: Extremities: extremities normal to inspection Gait: normal gait Skin: no rashes, warm and dry Neurologic: moves all extremities and awake Psychiatric: A+Ox3, euthymic affect Results & Data Vital Signs (Past 12 Hours) Vital Signs Temp Pulse Pulse Resp BP Pulse Ox 06/29/19 11:22 64 16 94 06/29/19 08:09 36.6 C 56 L 19 147/69 H 94 06/29/19 07:08 84 19 93 06/29/19 04:41 36.4 C L 57 L 18 146/73 H 95 06/29/19 02:08 60 16 94 06/29/19 00:00 36.4 C L 56 L 59 L 20 149/66 H 95 PG Care Time/CCT Total # of Minutes Spent Total Time Spent with Patient: Total time spent is greater than 50% in coordination of care (as documented) at patient's floor/unit and/or counseling patient:
--- NOTE | 2019-06-29 14:09 | Pharmacy Report ---
Glycemic Control Consultation - Date of Service June 29, 2019 - Scope Scope: Glycemic Pharmacist consulted by Dr Burger on 06/28/2019 for glycemic control and to write orders per [facility] inpatient glycemic control protocol - Objective Weight: 102.2 kg Accuchecks BSG (last 24hrs): 06/28/19 06/29/19 06/29/19 21:15 00:06 01:07 Glucose 121 H POC Glucose 172 H 144 H 06/29/19 06/29/19 06/29/19 04:38 07:21 11:37 Glucose POC Glucose 89 82 82 Laboratory Data (last 24hrs): 06/29/19 01:07 Potassium 3.6 Carbon Dioxide 27 Anion Gap 7.0 Creatinine 3.71 H Est Cr Clr Drug Dosing 20.9 - Recent Pertinent Medications Outpatient Anti-diabetic Regimen: * glipizide 5 mg daily * A1c = 5.6 % 05/29/2019 (unreliable due to anemia) The patient is currently receiving: * Basal insulin: Lantus 15 units SQ x 1 * Correctional Insulin: Novolog Correction per scale ACHS Goal Range: Low 110 mg/dL - High 140 mg/dL Correction Factor: 25 mg/dL/unit * Prandial insulin: Per carb ratio of 1 unit per 8 grams CHO consumed * Oral Agents: Risk Factors for Insulin Resistance: * Infection: Rocephin/ Flagyl/ Doxycycline * Diet: Renal - Assessment & Plan Assessment & Plan: ASSESSMENT: * Mr Haddad is a 78 y/o M with a PMH of T2DM controlled on 1 oral medication. Patient's blood sugars elevated on admission at 239 mg/dL. He received 15 units of Lantus yesterday evening with subsequent BSGs of 172-144 mg/dL. Fasting BSG 82 mg/dL. Patient considering palliative. * Discussed with lead resident about patient's home prednisone. She will discuss this with her attending. * At this point, will not order additional Lantus. Due to patient's condition goal blood sugars closer to 140-180 mg/dL. * For Novolog will order weight-based stress of 1-2. * Hold outpatient oral medications at this point. PLAN FOR INPATIENT GLYCEMIC CONTROL: * Holding outpatient oral diabetes medications * Basal insulin * Lantus --- units SQ BID * Bolus insulin * NovoLog per scale ACHS or Q6hrs while NPO * Goal Range: Low 140 mg/dL - High 180 mg/dL * Correction Factor: 25 mg/dL/unit * Nutritional / Prandial insulin per carb ratio of 1 unit per 8 grams CHO consumed * Please note that the plan above was derived based on current level of insulin resistance and hospital stress. These recommendations are appropriate for inpatient admission only. Plan of care upon discharge will need to be reassessed to avoid potential outpatient hypo/hyperglycemia. Thank you.
[2019-06-29] MEDS: cefTRIAXone SODIUM 2,000 MG in DEXTROSE 5% 50 ML IV SCH (16:11)
--- NOTE | 2019-06-29 18:20 | Billing Data ---
Date of Service June 29, 2019 Coding Level of Care Code 05047 Subseq Hosp Care Lvl 3
[2019-06-29] MEDS: PRAVASTATIN SOD 10 MG TAB PO SCH (20:39)
[2019-06-29] MEDS: FLUVOXAMINE MALEATE 50 MG TAB PO SCH (20:39)
[2019-06-29] MEDS: GABAPENTIN 100 MG CAP PO SCH (20:39)
[2019-06-30] MEDS: ALBUT/IPRATROP 3MG/0.5MG NEB 3 ML VIAL NEB SCH ×2 (02:40→07:18)
[2019-06-30] MEDS: IPRATROPIUM BROMIDE NASAL SPRAY 0.06% 15ML NAE SCH ×2 (08:11→20:21)
[2019-06-30] MEDS: AMLODIPINE BESYLATE 5 MG TAB PO SCH (08:12)
[2019-06-30] MEDS: FAMOTIDINE 40 MG TABLET PO SCH (08:12)
[2019-06-30] MEDS: carvediloL 6.25 MG TAB PO SCH ×2 (08:12→20:20)
[2019-06-30] MEDS: DOCUSATE SODIUM 100 MG CAP PO SCH (08:12)
[2019-06-30] MEDS: CHOLECALCIFEROL 1,000 UNITS TAB PO SCH (08:12)
[2019-06-30] MEDS: ASCORBIC ACID 500 MG TAB PO SCH (08:12)
[2019-06-30] MEDS: DOXYCYCLINE HYCLATE 100 MG CAP PO SCH ×2 (08:13→20:19)
[2019-06-30] MEDS: BUMETANIDE 1 MG in SYRINGE 0 ML IV SCH (08:13)
[2019-06-30] MEDS: FEBUXOSTAT 40 MG TABLET PO SCH ×2 (08:45→17:46)
[2019-06-30] MEDS: INSULIN ASPART 100 UNITS/ML 3 ML PEN SC SCH ×4 (08:46→20:28)
[2019-06-30] MEDS ORDERED: ALBUT/IPRATROP 3MG/0.5MG NEB 3 ML VIAL NEB PRN (09:15)
--- NOTE | 2019-06-30 11:18 | Hospitalist Progress Note ---
Date of Service June 30, 2019 Assessment & Plan (1) Goals of care, counseling/discussion: 78 yo M with symptomatic anemia and community acquired pneumonia now for hospice care, Goals of care ongoing discussion: - Pt and family made decision to pursue hospice yesterday. Per Case Management it ill take until Thursday to gather proper supplies, bed, commode, etc. - Pt feeling comfortable today and without complaints. - Would benefit from oxygen at home as needed for comfort. Symptomatic anemia with shortness of breath: - Received 2 units of blood yesterday. Feels better, less SOB, still using nasal cannula 2L. - Pt is hospice care at this time; no further blood draws. Comfort care moving forward. - DVT prophylaxis SCDs and teds. - DNR/DNI per patient request. - Recommended incentive spirometry and to try to expand the lung. - Continue duo nebs every 4 hours, Ipratropium bromide nasal spray spray 2 sprays twice daily. - Continue ceftriaxone and Flagyl for pneumonia symptomatic treatment. Elevated troponin: - Patient denies chest pain. - Elevated troponin is most likely due to CKD stage V. - No intervention; pt is hospice care. CKD (chronic kidney disease): - Worsening CKD stage III-IV and now 5. - Patient refuses hemodialysis an is hospice care. - Avoid nephrotoxic agents Depression: - Continue fluvoxamine 100mg p.o. nightly. - Patient denies suicidal ideations Hypertension: - Continue amlodipine 10 mg p.o. every morning, carvedilol 6.25 mg p.o. twice daily. Diabetic neuropathy: - Continue home medicine gabapentin 200 mg p.o. nightly Diabetes mellitus type 2 in obese: - Glycemic control per pharmacy Gout: - Continue febuxostat 40 mg p.o. every morning Code Status: FULL CODE FEN/GI: dialysis renal diet DVT ppx: SCDs Dispo: med/surg (2) Stage 5 chronic kidney disease not on chronic dialysis: (3) Diabetes mellitus type 2 in nonobese: (4) Hypertension: (5) Atrial fibrillation: (6) CKD (chronic kidney disease): (7) Pneumonia: Supervising Physician Co-Signing Physician Notes I personally examined the patient and verified all blanc points of history and exam, discussed case, and agree with decision making with Dr Chiang. Feeling okay now. no new complaints. answered questions to the best of my ability. Vitals noted, in general he is awake and alert pleasant no distress. HEENT normocephalic atraumatic mucous membranes moist. Breathing unlabored no accesso ry muscle use good effort. Skin shows no rashes no pallor or icterus. Symptomatic anemiaseems to have improved status post transfusion. ongoing discussions of palliative mindset and goals of care. answered all questions to the best of my ability. home once hospice situation set up. Otherwise as above. Subjective Pt without acute events overnight. Reports feeling a bit confused this morning after moving rooms, but is alert and oriented on my interview. Recognizes , can answer all of my questions appropriately. No shortness of breath, no chest pain, palpitations. No fevers or chills. Review of Systems Constitutional: no fever, no chills and no malaise Respiratory: no cough and no dyspnea Cardiovascular: no chest pain, no palpitations and no edema Gastrointestinal: no abdominal pain, no constipation and no diarrhea/loose stools Physical Exam Constitutional: WD/WN, vitals as above Respiratory: normal respiratory effort, lungs clear to auscultation Cardiovascular: RRR, no murmur, no edema Gastrointestinal (Abdomen): normal bowel sounds, soft, nontender, no hepatosplenomegaly Skin: no rashes, warm and dry Psychiatric: A+Ox3, euthymic affect Results & Data Vital Signs (Past 12 Hours) Vital Signs Temp Pulse Resp BP Pulse Ox 06/30/19 07:22 63 16 92 06/30/19 07:11 36.3 C L 68 16 161/70 H 92 06/30/19 02:40 74 18 93 06/29/19 23:36 36.4 C L 72 20 137/68 91 Laboratory Results Laboratory Results - last 24 hr 06/29/19 06/29/19 06/30/19 16:39 20:46 07:29 POC Glucose 106 H 116 H 111 H Medications Administered Current Medications Acetaminophen (Tylenol) 650 mg PO Q4H PRN PRN Reason: Pain or Fever Stop: 07/28/19 19:57 Al Hydrox/Mg Hydrox/Simethicone (Maalox) 15 ml PO Q4H PRN PRN Reason: Dyspepsia Stop: 07/28/19 19:57 Albuterol (Duoneb) 3 ml NEB Q4R PRN PRN Reason: shortness of breath Stop: 07/28/19 20:29 Amlodipine Besylate (Norvasc) 10 mg PO QAM REPLACED BY [facility] Stop: 07/29/19 08:59 Last Admin: 06/30/19 08:12 Dose: 10 mg Documented by: Ascorbic Acid (Vitamin C) 1,000 mg PO QAM REPLACED BY [facility] Stop: 07/29/19 08:59 Last Admin: 06/30/19 08:12 Dose: 1,000 mg Documented by: Bisacodyl (Dulcolax) 10 mg SC DAILY PRN PRN Reason: Constipation Stop: 07/28/19 19:57 Carvedilol (Coreg) 6.25 mg PO BID REPLACED BY [facility] Stop: 07/28/19 20:59 Last Admin: 06/30/19 08:12 Dose: 6.25 mg Documented by: Dextrose (Dextrose 50%) 25 - 50 ml IV UD PRN; Protocol PRN Reason: Hypoglycemia Protocol Stop: 07/28/19 20:08 Docusate Sodium (Colace) 100 mg PO DAILY REPLACED BY [facility] Stop: 07/29/19 08:59 Last Admin: 06/30/19 08:12 Dose: 100 mg Documented by: Doxycycline Hyclate (Vibramycin) 100 mg PO BID REPLACED BY [facility] Stop: 07/06/19 08:59 Last Admin: 06/30/19 08:13 Dose: 100 mg Documented by: Famotidine (Pepcid) 40 mg PO QAM REPLACED BY [facility] Stop: 07/29/19 08:59 Last Admin: 06/30/19 08:12 Dose: 40 mg Documented by: Febuxostat (Uloric) 40 mg PO DAILY REPLACED BY [facility] Stop: 07/29/19 08:59 Last Admin: 06/29/19 09:15 Dose: 40 mg Documented by: Fluvoxamine Maleate (Luvox) 100 mg PO [facility] Stop: 07/28/19 20:59 Last Admin: 06/29/19 20:39 Dose: 100 mg Documented by: Gabapentin (Neurontin) 200 mg PO [facility] Stop: 07/28/19 20:59 Last Admin: 06/29/19 20:39 Dose: 200 mg Documented by: Glucagon (Glucagen) 1 mg SQ UD PRN; Protocol PRN Reason: Hypoglycemia Protocol Stop: 07/28/19 20:08 Glucose (Dex4 Glucose) 4 - 8 tabs PO UD PRN; Protocol PRN Reason: Hypoglycemia Protocol Stop: 07/28/19 20:08 Glucose (Glucose 40%) 15 - 30 gm PO UD PRN; Protocol PRN Reason: Hypoglycemia Protocol Stop: 07/28/19 20:08 Ceftriaxone Sodium 2,000 mg/ (Dextrose) 70 mls @ 100 mls/hr IV Q24H [facility]; Protocol Stop: 07/05/19 15:59 Last Infusion: 06/29/19 17:01 Dose: Infused Documented by: Bumetanide 1 mg/ Syringe 4 mls @ 4 mls/min IV DAILY [facility] Stop: 07/28/19 20:29 Last Admin: 06/30/19 08:13 Dose: 4 mls/min Documented by: Insulin Aspart (Novolog Flexpen) 0 units SC ACHS [facility] Stop: 07/28/19 20:59 Last Admin: 06/30/19 08:46 Dose: 4 units Documented by: Ipratropium [place] (Atrovent Nasal [place] 0.06%) 2 sprays SUNNY BID [facility] Stop: 07/28/19 20:59 Last Admin: 06/30/19 08:11 Dose: 2 sprays Documented by: Magnesium Hydroxide (Milk Of Magnesia) 30 ml PO Q12H PRN PRN Reason: Constipation Stop: 07/28/19 19:57 Miscellaneous (Carbohydrates For Hypoglycemia) 15 - 30 gm PO UD PRN PRN Reason: Hypoglycemia Protocol Stop: 07/28/19 20:08 Miscellaneous Information (Consult Glycemic Management Pharmacy) 1 ea N/A UD PRN; Protocol PRN Reason: Consult Stop: 07/28/19 20:44 Ondansetron HCl (Zofran) 4 mg IV Q6H PRN PRN Reason: Nausea Stop: 07/28/19 19:57 Pravastatin Sodium (Pravachol) 10 mg PO HS [facility] Stop: 07/28/19 20:59 Last Admin: 06/29/19 20:39 Dose: 10 mg Documented by: Vitamin D (Vitamin D3) 1,000 units PO QAM [facility] Stop: 07/29/19 08:59 Last Admin: 06/30/19 08:12 Dose: 1,000 units Documented by: Resident Activity Tracking Resident Involvement: Resident Care Provided Care Provided: Adult [facility] Medicine (1) CKD (chronic kidney disease) Chronic kidney disease stage: unspecified stage Qualified Code(s): N18.9 - Chronic kidney disease, unspecified
--- NOTE | 2019-06-30 15:21 | Pharmacy Report ---
Pharmacy Glycemic Short Note 2 - Date of Service June 30, 2019 - Glycemic Short BSG Results (Last 24 hours): 06/29/19 06/29/19 06/30/19 16:39 20:46 07:29 POC Glucose 106 H 116 H 111 H 06/30/19 11:17 POC Glucose 121 H OUTPATIENT ANTIDIABETIC REGIMEN: * Glipizide 5 mg PO QAM ASSESSMENT: * Patient received total of 5 units of bolus insulin yesterday. * Fasting BSG this AM was at goal. Continued same Novolog parameters as yesterday for breakfast and lunch. * Patient seems to be eating better today with more carb intake. * Post prandial BSGs have at goal but d/t increased carb intake patient received more insulin at lunch today. * Novolog carb ratio was loosened further with dinner to limit amount of insulin that pt will get tonight. PLAN FOR INPATIENT GLYCEMIC CONTROL: * Hold outpatient oral diabetes medications * Basal insulin: None * Bolus insulin: loosened carb ratio. * NovoLog per scale ACHS or Q6hrs while NPO * Goal Range: Low 140 mg/dL - High 180 mg/dL * Correction Factor: 25 mg/dL/unit * Nutritional / Prandial insulin per carb ratio of 1 unit per 10 grams CHO consumed PLAN FOR DISCHARGE: * HbA1c = 5.6% on 05/29/19 * A1c is not reliable with anemia. Patient is currently hospice. * Glipizide can cause hypoglycemia. Recommend discontinue Glipizide and using Novolog insulin only for correction of BSGs greater than 160 mg/dl two or three times a day before meals.
--- NOTE | 2019-06-30 16:15 | Palliative Care Progress Note ---
Date of Service June 30, 2019 Assessment & Plan (1) Goals of care, counseling/discussion: This patient is a 78 years old male who is known to the palliative care service and had a recent complicated inpatient hospitalization here at the [facility] from May 14 - May 31 that included a strangulated and necrotic bowel obstruction in the right inguinal canal s/p small bowel resection on May 14. Postoperatively, he was subsequently transferred to the ICU and required intubation, vasopressor support for hypotension, and dialysis. The patient was subsequently transferred to [facility] in [place] for another admission in May and from there, he was discharged to [facility]. Last evening, the patient was transferred from [facility] with shortness of breath. On arrival, laboratory work revealed a decreased hemoglobin and hematocrit; 7.2 and 22.7. He was transfused 2 UPRBC's and now Hgb is 9.6. His creatinine ranges from 3-4, currently 3.71. Additional PMH includes HTN, HLD, gout, CKD IV, AFib, PVD, CAD, cholelithiasis, depression, and chronic anemia. The patient stated that he no longer wish to pursue aggressive hemodialysis and want to take a more conservative approach-his supports his decision. -The patient is still able to eat and has an appetite. he continues to make urine as well. Urine output over the past 48 hours was between 500 and 1100 cc per 24 hours. -They live in a condominum in [place], on the first floor and he said it would bring him vasu to go home and watch TV with his on their "big screen TV", and hopefully be able to go outside once in a while, even if its cold. -A POLST form was completed - DNR/DNI, Comfort Measures Only, trial abx with comfort as main goal and no artificial hydration/nutrition. -I spoke with patient's by phone-reviewed her concerns regarding taking the patient home, answered her questions and provided support. -Plan is for discharge home once DME is delivered by hospice agency. -No current symptom management needs at this time. -PPS: 30% -Palliative care will follow and assist as needed. We will continue to provide support to both patient and family. (2) Acute respiratory failure: (3) Chronic kidney disease, stage IV (severe): (4) Atrial fibrillation: Subjective Patient awake and alert, no acute distress. No family at bedside. Spoke to patient's , Leticia, by phone. Plan is for discharge home with hospice as soon as equipment can be delivered. Review of Systems Review of Systems: Patient denies pain or discomfort, fever, chills, chest pain, increased shortness of breath, or abdominal pain Physical Exam Physical Exam: PE: Awake and alert, mild confusion HEENT: EOMI, hearing within normal limits Respirations: Unlabored, on O2 at 2 L, no rhonchi or rales CV: Regular rate Abdomen: Soft, nontender Neuro alert and oriented Psych: Appropriate mood and affect Results & Data Vital Signs (Past 12 Hours) Vital Signs Temp Pulse Resp BP Pulse Ox 06/30/19 15:14 97.9 F 61 18 142/64 H 93 06/30/19 07:22 63 16 92 06/30/19 07:11 97.3 F L 68 16 161/70 H 92 PG Care Time/CCT Total # of Minutes Spent Total Time Spent with Patient: Total time spent is greater than 50% in coordination of care (as documented) at patient's floor/unit and/or counseling patient: Time Spent Attending Total time spent 35 minutes with greater than 50% of the time spent at bedside assessing patient's current condition and any current distressing symptoms.
[2019-06-30] MEDS: cefTRIAXone SODIUM 2,000 MG in DEXTROSE 5% 50 ML IV SCH (16:34)
[2019-06-30] MEDS: PRAVASTATIN SOD 10 MG TAB PO SCH (20:18)
[2019-06-30] MEDS: GABAPENTIN 100 MG CAP PO SCH (20:18)
[2019-06-30] MEDS: FLUVOXAMINE MALEATE 50 MG TAB PO SCH (20:19)
--- NOTE | 2019-06-30 21:01 | Billing Data ---
Date of Service June 30, 2019 Coding Level of Care Code 18960 Subseq Hosp Care Lvl 2
[2019-07-01] MEDS: DOXYCYCLINE HYCLATE 100 MG CAP PO SCH ×2 (07:56→21:07)
[2019-07-01] MEDS: AMLODIPINE BESYLATE 5 MG TAB PO SCH (07:56)
[2019-07-01] MEDS: ASCORBIC ACID 500 MG TAB PO SCH (07:57)
[2019-07-01] MEDS: CHOLECALCIFEROL 1,000 UNITS TAB PO SCH (07:57)
[2019-07-01] MEDS: carvediloL 6.25 MG TAB PO SCH ×2 (07:57→21:09)
[2019-07-01] MEDS: BUMETANIDE 1 MG in SYRINGE 0 ML IV SCH (07:58)
[2019-07-01] MEDS: FAMOTIDINE 40 MG TABLET PO SCH (07:58)
[2019-07-01] MEDS: IPRATROPIUM BROMIDE NASAL SPRAY 0.06% 15ML NAE SCH ×2 (07:58→21:09)
[2019-07-01] MEDS: FEBUXOSTAT 40 MG TABLET PO SCH (08:27)
[2019-07-01] MEDS: DOCUSATE SODIUM 100 MG CAP PO SCH (08:27)
[2019-07-01] MEDS: INSULIN ASPART 100 UNITS/ML 3 ML PEN SC SCH ×4 (08:28→20:20)
--- NOTE | 2019-07-01 09:36 | Hospitalist Progress Note ---
Date of Service July 01, 2019 Assessment & Plan (1) Goals of care, counseling/discussion: 78 yo M with symptomatic anemia and community acquired pneumonia now for hospice care, discharge planning for tomorrow. Goals of care ongoing discussion: - Pt and family made decision to pursue hospice this admission. Per Case Management it ill take until Thursday to gather proper supplies, bed, commode, etc. - Pt feeling comfortable today and without complaints. - Would benefit from oxygen at home as needed for comfort and shortness of breath. Symptomatic anemia with shortness of breath: - Received 2 units of blood this admission. Feels better, less SOB, still using nasal cannula 2L. - Pt is hospice care at this time; no further blood draws. Comfort care moving forward. - DVT prophylaxis SCDs and teds. - Recommended incentive spirometry and to try to expand the lung. - Continue duo nebs every 4 hours as needed, Ipratropium bromide nasal spray spray 2 sprays twice daily. - Continue ceftriaxone and Flagyl for pneumonia symptomatic treatment; Elevated troponin: - Patient denies chest pain. - Elevated troponin is most likely due to CKD stage V. - No intervention; pt is hospice care. CKD (chronic kidney disease): - Worsening CKD stage III-IV and now 5. - Patient refuses hemodialysis and is hospice care. - Avoid nephrotoxic agents. Depression: - Continue fluvoxamine 100mg p.o. nightly. - Patient denies suicidal ideations. Hypertension: - Continue amlodipine 10 mg p.o. every morning, carvedilol 6.25 mg p.o. twice daily. Diabetic neuropathy: - Continue home medicine gabapentin 200 mg p.o. nightly. Diabetes mellitus type 2: - Glycemic control per pharmacy. Gout: - Continue febuxostat 40 mg p.o. every morning. Code Status: DNR/DNI FEN/GI: dialysis renal diet DVT ppx: SCDs Dispo: med/surg (2) Stage 5 chronic kidney disease not on chronic dialysis: (3) Diabetes mellitus type 2 in nonobese: (4) Hypertension: (5) Atrial fibrillation: (6) CKD (chronic kidney disease): (7) Pneumonia: Supervising Physician Co-Signing Physician Notes I personally examined the patient and verified all blanc points of history and exam, discussed case, and agree with decision making with Dr Chiang. No new problems or complaints. Continued to answer questions. Family believes everything will be set up to get him home tomorrow. Vitals noted, in general he is awake and alert pleasant no distress. HEENT normocephalic atraumatic mucous membranes moist. Breathing unlabored no accessory muscle use good effort. Skin shows no rashes no pallor or icterus. Symptomatic anemia improved status post transfusion. ongoing discussions of palliative mindset and goals of care. answered all questions to the best of my ability. home once hospice situation set up. hopefully tomorrow Otherwise as above. Subjective Pt without acute events overnight. No confusion this AM. No shortness of breath, no chest pain, palpitations. No fevers or chills. Feels better with nasal cannula as needed. Review of Systems Constitutional: no fever, no chills and no malaise Respiratory: no cough and no dyspnea Cardiovascular: no chest pain, no palpitations and no edema Gastrointestinal: no abdominal pain, no constipation and no diarrhea/loose stools Physical Exam Constitutional: WD/WN, vitals as above Respiratory: normal respiratory effort, lungs clear to auscultation Cardiovascular: RRR, no murmur, no edema Gastrointestinal (Abdomen): normal bowel sounds, soft, nontender, no hepatosplenomegaly Skin: no rashes, warm and dry Psychiatric: A+Ox3, euthymic affect Results & Data Vital Signs (Past 12 Hours) Vital Signs Temp Pulse Resp BP BP Pulse Ox 07/01/19 07:49 36.8 C 61 18 150/57 H 94 06/30/19 23:27 36.7 C 70 20 151/63 H 94 Resident Activity Tracking Resident Involvement: Resident Care Provided Care Provided: Adult Hospital Medicine (1) CKD (chronic kidney disease) Chronic kidney disease stage: unspecified stage Qualified Code(s): N18.9 - Chronic kidney disease, unspecified
[2019-07-01] MEDS: cefTRIAXone SODIUM 2,000 MG in DEXTROSE 5% 50 ML IV SCH (15:41)
--- NOTE | 2019-07-01 17:23 | Billing Data ---
Date of Service July 01, 2019 Coding Level of Care Code 45017 Subseq Hosp Care Lvl 2
[2019-07-01] MEDS: FLUVOXAMINE MALEATE 50 MG TAB PO SCH (21:07)
[2019-07-01] MEDS: GABAPENTIN 100 MG CAP PO SCH (21:08)
[2019-07-01] MEDS: PRAVASTATIN SOD 10 MG TAB PO SCH (21:08)
[2019-07-02] MEDS: INSULIN ASPART 100 UNITS/ML 3 ML PEN SC SCH ×2 (08:38→12:21)
[2019-07-02] MEDS: carvediloL 6.25 MG TAB PO SCH (08:39)
[2019-07-02] MEDS: DOXYCYCLINE HYCLATE 100 MG CAP PO SCH (08:39)
[2019-07-02] MEDS: FEBUXOSTAT 40 MG TABLET PO SCH (08:39)
[2019-07-02] MEDS: FAMOTIDINE 40 MG TABLET PO SCH (08:40)
[2019-07-02] MEDS: CHOLECALCIFEROL 1,000 UNITS TAB PO SCH (08:40)
[2019-07-02] MEDS: AMLODIPINE BESYLATE 5 MG TAB PO SCH (08:40)
[2019-07-02] MEDS: ASCORBIC ACID 500 MG TAB PO SCH (08:41)
[2019-07-02] MEDS: DOCUSATE SODIUM 100 MG CAP PO SCH (08:41)
[2019-07-02] MEDS: IPRATROPIUM BROMIDE NASAL SPRAY 0.06% 15ML NAE SCH (08:41)
[2019-07-02] MEDS: BUMETANIDE 1 MG in SYRINGE 0 ML IV SCH (08:42)
--- NOTE | 2019-07-02 09:49 | Discharge Summary ---
Date of Service July 02, 2019 Admission HPI Per Admitting Provider Patient is a 78 years old male with past medical history of hypertension, hyperlipidemia, gout, CKD stage V, A. fib's peripheral vascular disease coronary artery disease, asymptomatic cholelithiasis, depression, history of gram-negative bacteremia with Citrobacter, history of recent had septic shock in April 2019 from strangulated and necrotic bowel obstruction in the right inguinal hernia. Patient underwent small bowel resection on May 14 and after that was transferred to the ICU postoperatively due to hypotensive episode and required vasopressors for 3 days. He was also in intubated at that time. Had another admission in May and at that time he was discharged to [facility]. Today patient was brought with severe shortness of breath to the emergency room and he is hemoglobin and hematocrit were decreased to 7.2/22.7. Patient states that he does not want to pursue hemodialysis even though he is renal function is worsening, he also states that he wants to go home and stay at home and pursue palliative care and possibly hospice care. This was also discussed with his who is in agreement with it. Patient stated that he is okay with receiving 2 units of blood but then he wants to be discharged home. Lab are reviewed: WBC is 10.82, hemoglobin 7.2, hematocrit 22.7, platelets 302. Patient prior blood count was 8/24.2 in May and 8.4/25.7. Patient denies any acute blood loss, melena, hematemesis, hematuria, patient's anemia is more due to chronic comorbidities including but not limiting to worsening CKD, recent surgery and poor recovery. INR 1.2, APTT 26.6, PT 12.2, sodium 140, potassium 4.1, creatinine 3.85, GFR 14.2, lactate 1.7, phosphorus 5.7, troponin 0.055. Stool occult was positive on May 28, 2019. Chest x-rays: No change in the cardiomegaly, small bilateral pleural effusion, bibasilar densities. Mild pulmonary vascular congestion has slightly improved. CT abdomen pelvis shows small amount of gas within the right inguinal canal and locular of the gas adjacent to the right anterior aspect of the bladder. This gas is nonspecific and may be postsurgically related to recent intervention. Fat-containing right inguinal hernia. Evidence for volume overload with anasarca. Moderate bilateral pleural effusion with right lower lobe collapse subtotal mild right middle lobe collapse and segmental left lobe atelectasis. No bowel obstruction. Cholelithiasis with mild gallbladder wall thickening. A nonspecific finding which may be related to volume overload. Moderate amount of stool within the rectum. Mild rectal wall thickening. Decision was made to admit patient to PCU on telemetry for further evaluation and treatment of the above mentioned issues. Admission Exam Per Admitting Provider Constitutional: WD/WN, vitals as above well developed and + obese Eyes: PERRL, conjunctivae normal, anicteric sclerae ENMT: external ear and nose normal, oropharynx normal Neck: trachea midline, no thyromegaly Respiratory: Auscultation: + diminished lung sounds and + wheezes Cardiovascular: Rate/Rhythm: + irregularly irregular Heart Sounds: normal S1 and normal S2 Musculoskeletal: no cyanosis or clubbing, extremities motor strength 5/5 Skin: no rashes, warm and dry Neurologic: patellar DTR's 2+ bilat, sensation intact Psychiatric: A+Ox3, euthymic affect Lymphatic: no cervical or axillary lymphadenopathy Principal Diagnosis Symptomatic acute blood loss anemia Discharge Exam Constitutional cooperative; no acute distress and not ill appearing Neck normal visual inspection Respiratory normal respiratory effort and able to speak in complete sentences; no respiratory distress, no labored breathing, no retractions, no cough and no audible wheezes Auscultation: lungs clear to auscultation bilaterally; no crackles, no rales, no rhonchi and no wheezes Cardiovascular Rate/Rhythm: regular rate and regular rhythm Heart Sounds: normal S1 and normal S2; no gallop, no murmur and no cardiac rub Vessels: posterior tibial pulses present Extremities: no pedal edema and no edema Gastrointestinal (Abdomen) Inspection/Auscultation: abdomen normal to inspection and normal bowel sounds; abdomen not distended Percussion/Palpation: abdomen soft; abdomen nontender, no guarding, abdomen not rigid and no abdominal mass Discharge Data Allergies Allergy/AdvReac Type Severity Reaction Status Date / Time latex Allergy Unknown LOCAL SKIN Verified 06/28/19 14:24 IRRITATION lisinopril Allergy Unknown hyperkalemi Verified 06/28/19 14:24 a sulfamethoxazole AdvReac increases Verified 06/28/19 14:24 [From Bactrim] potassium trimethoprim [From Bactrim] AdvReac increases Verified 06/28/19 14:24 potassium Consultations 06/28/19 14:03 ED Decision to Admit Stat 06/28/19 17:07 Consult Palliative Care Routine Ordered Studies 06/28/19 13:36 CT abd pelvis wo con Stat Hospital Course (1) Goals of care, counseling/discussion: 78 yo M admitted for symptomatic anemia with shortness of breath s/p 2 u PRBC transfusion. Improved markedly in symptoms after blood transfusion (Hg 7.2 ->9.6). On admission was found to have elevated troponins in the setting of CKD stage 5 and no chest pain so further troponin workup was not completed. He was also found to have a community acquired pneumonia which was treated with 6 days of IV ceftriaxone and sent home with cefdinir 300 mg BID x 1 day to finish the course of antibiotics. Given the number of medical issues the patient faces, a number of discussions were had regarding goals of care. Ultimately the patient decided he wishes to be hospice care going forward and opted to go home with home hospice. In the context of symptomatic hospice management, we advised that he would benefit from oxygen at home for comfort and shortness of breath. In regard to his arteriovenous malformations and ongoing anemic episodes, we discussed that he could proceed with routine bloodwork in the outpatient setting to monitor his hemoglobin status and allow for outpatient transfusion when approaching sympto matic range. Alternatively, he could opt to not schedule blood draws and only be seen when experiencing symptoms of shortness of breath or fatigue. While this would cut down on the number of draws, it would also close in on the window of time to schedule an outpatient transfusion as opposed to requiring a hospital/ER visit for transfusion. We advised that he think these options over and continue the discussion with his PCP. All other chronic medical conditions controlled per home medication regimen. (2) Stage 5 chronic kidney disease not on chronic dialysis: (3) Diabetes mellitus type 2 in nonobese: (4) Hypertension: (5) Atrial fibrillation: (6) CKD (chronic kidney disease): (7) Pneumonia: Total Time Total Time Spent Total Time Spent (In Minutes): <30 Discharge Plan Discharge Items Patient Disposition: Hospice - Home Reason For Visit: SEVERE ANEMIA,SOB,ELEVATED TROPONIN Discharge Diagnosis: symptomatic acute blood loss anemia Activity: Resume your previous activity Non-emergency contact: Primary Care Provider Call non-emergency contact if: you have any medication questions, your pain is not controlled and your temperature is above 101 Follow-up/Referrals: Jovany Stephenson MD [Primary Care Provider] - Diet: Regular Addtl Attending Provider Instructions: You were admitted to the hospital for shortness of breath that was found to be secondary to bleeding into your GI tract, 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 Your symptoms rapidly improved after transfusion of blood and will likely respond to this therapy in the future if and when you experience similar symptoms again. As discussed with your hospitalist team, getting bloodwork done at home to measure your hemoglobin levels on a consistent basis could afford you the opportunity to receive a blood transfusion in an outpatient setting rather than coming in to the emergency department or hospital. Conversely, you could wait until you are starting to feel the shortness of breath and fatigue as that is when transfusion will help the most, but this may not allow for a big enough window of time to receive the blood outside of the hospital and may require an ER or hospital visit. Discuss these options with your PCP as you move forward with your care. In the hospital you were also treated for a community acquired pneumonia with IV medications. This has been switched a 300 mg twice daily Omnicef pill that you will only have to take for 1 day since you finished most of the treatment regimen in the hospital. Pending Studies at Discharge: No Stand-Alone Forms: My [facility] Medications and DC Order Prescriptions: New cefdinir 300 mg capsule 300 mg PO BID 1 Days Qty: 2 RF: 0 Continued ipratropium bromide 42 mcg (0.06 %) spray,non-aerosol 2 spray intranasal BID Qty: 15 RF: 11 famotidine 40 mg tablet 40 mg PO QAM RF: 0 glipizide 5 mg tablet extended release 24hr 5 mg PO QAM RF: 0 gabapentin 100 mg capsule 200 mg PO HS RF: 0 carvedilol 6.25 mg Tablet 6.25 mg PO BID RF: 0 amlodipine 5 mg tablet 10 mg PO QAM Qty: 0 RF: 0 docusate sodium [Colace] 100 mg Capsule 100 mg PO DAILY RF: 0 bumetanide 1 mg Tablet 1 mg PO DAILY RF: 0 pravastatin 10 mg tablet 10 mg PO HS RF: 0 febuxostat [Uloric] 40 mg Tablet 40 mg PO QAM RF: 0 fluvoxamine 100 mg tablet 100 mg PO HS RF: 0 Discontinued cholecalciferol (vitamin D3) 1,000 unit capsule 1,000 units PO QAM RF: 0 PreserVision AREDS-2 [id number] Capsule 1 tab PO BID RF: 0 acetaminophen 325 mg Tablet 325 mg PO QID PRN (Reason: pain/fever) RF: 0 prednisone 10 mg Tablet 40 mg PO DAILY RF: 0 bisacodyl 10 mg Suppository 10 mg UT DAILY PRN (Reason: Constipation) RF: 0 doxycycline hyclate 100 mg Tablet 100 mg PO BID RF: 0 ascorbic acid (vitamin C) 1,000 mg Tablet 1,000 mg PO QAM RF: 0 Discharge Orders: Discharge Order (Routine); Ordered 07/02/19 Ordered By: Obdulia Montelongo Admission Data Admit Date/Time: 06/28/19 15:47 Attending Provider: Javier Ceja Admit Provider: Abner Burger Primary Care Provider: Jovany Stephenson Other Providers: Abner Burger ; Komal Turcios ; [facility] ; Odbulia Montelongo Other Interventions: Discharge Summary Assessment (RN) Last Done: 07/02/19 12:31 DC Date/Time DO NOT enter until pt leaves facility: 07/02/19 14:07 Supervising Physician Co-Signing Physician Notes I personally examined the patient and verified all blanc points of history and exam, discussed case, and agree with decision making with Dr Montelongo. No new problems or complaints. set up for home for today. Vitals noted, in general he is awake and alert pleasant no distress. HEENT normocephalic atraumatic mucous membranes moist. Breathing unlabored no accessory muscle use good effort. Skin shows no rashes no pallor or icterus. Symptomatic anemia improved status post transfusion. ongoing discussions of palliative mindset and goals of care. discussed that ongoing transfusions prn symptomatic anemia are reasonable given that it can give him quality of life -- can continue to follow symptoms and/or Hgb as outpt. stable for home w hospice. Otherwise as above. Resident Activity Tracking Resident Involvement: Resident Care Provided Care Provided: Adult Hospital Medicine
--- NOTE | 2019-07-02 17:38 | Billing Data ---
Date of Service July 02, 2019 Coding Level of Care Code D/C Day Management <30 mins
== END 2019-07-02 14:07 | disposition hospice, home (50) | DRG 811 ==
LOC: ED 10:55 → 2S 15:47 → INTOOBSV 15:47 → SUATTDRO 15:47 → 2S 19:20 → 4W 06-29 11:22